=== PATIENT | male | born 1960 | race Caucasian/White ===

== ENCOUNTER → 2016-08-04 | Outpatient (CLI) | payer MEDICARE ==
[~2016-08-04] VITALS: Ht 188 cm; Wt 96.2 kg
[~2016-08-04] MED LIST: /AUGM875TA OR; ALBU17IN INH; ALBUTEROL INHALER INH; AMIT25TA2 OR; AMLO10TA2 PO; ASPI81TA2 PO; ATOR1TAB21 PO; BACITAB3 PO; CHLO125TA PO; CIPR-250 PO; CIPR500T89 PO; CLON-412 PO; COUM10TA PO; COUM1TAB17 PO; FERR325T PO; FINA5TAB2 PO; FLAG500T PO; FLEXERIL PO; FLON0.054; GABA800T PO; HYDR10TAB PO; HYDR25TA6 PO; LABE10TAB PO; LIDOCAINE 2% INJ 100 MG/5 ML SDV (FOR ANES.) As Ordered ONE; LISI-538 PO; LOPR50TA PO; MECL25TA2 OR; MICR12.5 PO; MORP15TASA PO; NICO14PA EXT; NS 1,000 ML IV SCH; OXYC10TA12 PO; PERC7.5T8 OR; PERCOCET PO; PRAVASTATIN PO; PRIL20CA PO; PROPOFOL 200 MG/20 ML VIAL As Ordered ONE; SENN8.6T10 PO; SING10TA31 OR; TYLE325T5 PO; TYLENOL #3 OR; TYLENOL #4 PO; VENTOLIN ROTAHALER INH; WARF-21 PO; WARF-23 PO; WARF10TA OR; nasal spray
--- NOTE | 2016-08-04 10:23 | ROOR ---
Patient Name: Zack Marino Procedure Date: 08/04/2016 9:26 AM Date of : 1960 Age: 56 Room: [facility] Gender: Male Note Status: Finalized Procedure: Colonoscopy Indications: Follow-up of diverticulosis of the colon Providers: DO Ania Mendiola MD: Scott Eddy NP Requesting Provider: Medicines: Propofol per Anesthesia Complications: No immediate complications. Procedure: Pre-Anesthesia Assessment: - Prior to the procedure, a History and Physical was performed, and patient medications and allergies were reviewed. The patient is competent. The risks and benefits of the procedure and the sedation options and risks were discussed with the patient. All questions were answered and informed consent was obtained. Patient identification and proposed procedure were verified by the physician, the nurse, the anesthesiologist and the arcade technician in the endoscopy suite. Mental Status Examination: alert and oriented. Airway Examination: normal oropharyngeal airway and neck mobility. Respiratory Examination: clear to auscultation. CV Examination: normal. Prophylactic Antibiotics: The patient does not require prophylactic antibiotics. Prior Anticoagulants: The patient has taken no previous anticoagulant or antiplatelet agents. ASA Grade Assessment: III - A patient with severe systemic disease. After reviewing the risks and benefits, the patient was deemed in satisfactory condition to undergo the procedure. The anesthesia plan was to use monitored anesthesia care (MAC). Immediately prior to administration of medications, the patient was re-assessed for adequacy to receive sedatives. The heart rate, respiratory rate, oxygen saturations, blood pressure, adequacy of pulmonary ventilation, and response to care were monitored throughout the procedure. The physical status of the patient was re-assessed after the procedure. The Colonoscope was introduced through the anus and advanced to the ileocolonic anastomosis. The colonoscopy was performed without difficulty. The patient tolerated the procedure well. The quality of the bowel preparation was adequate to identify polyps 6 mm and larger in size. Findings: A 5 mm polyp was found in the transverse colon. The polyp was semi-pedunculated. The polyp was removed with a hot snare. Resection and retrieval were complete. Two semi-pedunculated polyps were found in the sigmoid colon. The polyps were 7 to 12 mm in size. These polyps were removed with a hot snare. Resection and retrieval were complete. Three hyperplastic polyps were found in the rectum. The polyps were 3 to 5 mm in size. These polyps were removed with a hot snare. Resection and retrieval were complete. Multiple small and large-mouthed diverticula were found in the sigmoid colon. The exam was otherwise without abnormality. Impression: - One 5 mm polyp in the transverse colon, removed with a hot snare. Resected and retrieved. - Two 7 to 12 mm polyps in the sigmoid colon, removed with a hot snare. Resected and retrieved. - Three 3 to 5 mm polyps in the rectum, removed with a hot snare. Resected and retrieved. - Diverticulosis in the sigmoid colon. - The examination was otherwise normal. Recommendation: - Patient has a contact number available for emergencies. The signs and symptoms of potential delayed complications were discussed with the patient. Return to normal activities tomorrow. Written discharge instructions were provided to the patient. - Return to my office PRN. - Telephone my office for pathology results in 1 week. - Repeat colonoscopy in 3 - 5 years for surveillance based on pathology results. Alton Sabillon DO 08/04/2016 10:22:37 AM This report has been signed electronically. Number of Addenda: 0 Note Initiated On: 08/04/2016 9:26 AM Estimated Blood Loss: Estimated blood loss was minimal.
--- NOTE | 2016-08-04 13:55 | REP ---
Clinical: Epigastric and abdominal pain status post colonoscopy. Technique: Upright view of the chest with supine and upright views of the abdomen and pelvis. Findings: Frontal upright view of the chest demonstrates no acute cardiopulmonary process or free air below the diaphragm to suspect pneumoperitoneum. Supine and upright views of the abdomen and pelvis demonstrate dilated loops of bowel which are consistent with the recent colonoscopy. No organomegaly. No abnormal calcifications. Skeletal structures normal for age. Iliac stent grafts noted. Impression: Dilated air filled bowel consistent with recent colonoscopy. Consider follow-up examination if the patient remains symptomatic. Signed by Alan Cummings MD 08/04/2016 01:47 P
[2016-08-04 14:00] VITALS: BP 178/92
== END | disposition home or self-care (01) ==
LOC: M OPP 08:26
PROVIDERS: ATTEND Surgery
DX: K57.30 Diverticulosis of large intestine without perforation or abscess without bleeding (principal); D12.3 Benign neoplasm of transverse colon; D12.5 Benign neoplasm of sigmoid colon; K62.1 Rectal polyp; I25.10 Atherosclerotic heart disease of native coronary artery without angina pectoris; I10 Essential (primary) hypertension; E78.00 Pure hypercholesterolemia, unspecified; D64.9 Anemia, unspecified; F17.200 Nicotine dependence, unspecified, uncomplicated; F17.228 Nicotine dependence, chewing tobacco, with other nicotine-induced disorders; Z79.899 Other long term (current) drug therapy; Z79.891 Long term (current) use of opiate analgesic; Z79.01 Long term (current) use of anticoagulants; Z85.00 Personal history of malignant neoplasm of unspecified digestive organ

== ENCOUNTER 2016-11-15 15:35 | Inpatient (IN) | payer MEDICARE, MEDICAID ==
[~2016-11-15] VITALS: Ht 188 cm; Wt 97.9 kg
[~2016-11-15 15:35] MED LIST changes: +BACITAB PO; -BACITAB3 PO; +CIPR-249 PO; +FERR1TAB8 PO; -FERR325T PO; -LIDOCAINE 2% INJ 100 MG/5 ML SDV (FOR ANES.) As Ordered ONE; -NS 1,000 ML IV SCH; -PROPOFOL 200 MG/20 ML VIAL As Ordered ONE; +SENN1TAB10 PO; -SENN8.6T10 PO
[2016-11-15] MEDS ORDERED: COUM7.5T PO (15:48)
[2016-11-15] MEDS ORDERED: NS 1,000 ML IV ONE (16:30)
[2016-11-15] MEDS ORDERED: ONDANSETRON 4MG/2ML VIAL (J2405) IV ONE (16:30)
[2016-11-15] MEDS ORDERED: MORPHINE 4 MG/ML 1ML SYRINGE IV ONE (16:30)
[2016-11-15 16:38] LABS: BASO # 0.1 K/mm3 (0.0-0.2); BASO % 0.7 % (0.0-1.0); EOS # 0.4 K/mm3 (0.0-0.50); EOS % 4.2 % (0.0-3.0); LARGE UNSTAINED CELL # 0.2 K/mm3 (0.0-0.4); LARGE UNSTAINED CELL % 2.1 % (0.0-4.0); LYMPH # 2.2 K/mm3 (1.5-4.5); LYMPH % 23.1 % (24.0-44.0); MEAN CORPUSCULAR HEMOGLOBIN 31.1 pg (27.0-33.0); MEAN CORPUSCULAR HGB CONC 33.6 g/dl (32.0-36.5); MEAN CORPUSCULAR VOLUME 92.5 fl (80.0-96.0); MONO # 0.5 K/mm3 (0.0-0.8); MONO % 5.6 % (0.0-5.0); NEUTROPHILS % 64.3 % (36.0-66.0); PLATELET COUNT, AUTOMATED 195 k/mm3 (150-450); RED CELL DISTRIBUTION WIDTH 14.2 % (11.5-14.5); WHITE BLOOD COUNT 9.3 K/mm3 (4.0-10.0)
[2016-11-15 16:44] LABS: INR 1.12
[2016-11-15 17:16] LABS: ALBUMIN 3.3 GM/DL (3.2-5.2); ALKALINE PHOSPHATASE 83 U/L (45-117); ALT/SGPT 19 U/L (12-78); ANION GAP 3 MEQ/L (8-16); AST/SGOT 16 U/L (15-37); BILIRUBIN,DIRECT < 0.1 MG/DL (0.0-0.2); BILIRUBIN,TOTAL 0.3 MG/DL (0.2-1.0); BLOOD UREA NITROGEN 18 MG/DL (7-18); CALCIUM LEVEL 8.4 MG/DL (8.5-10.1); CARBON DIOXIDE LEVEL 25 MEQ/L (21-32); CHLORIDE LEVEL 110 MEQ/L (98-107); CREATININE FOR GFR 1.24 MG/DL (0.70-1.30); GLOMERULAR FILTRATION RATE > 60.0 (>56); GLUCOSE, FASTING 81 MG/DL (70-105); POTASSIUM SERUM 4.4 MEQ/L (3.5-5.1); SODIUM LEVEL 138 MEQ/L (136-145); TOTAL PROTEIN 6.6 GM/DL (6.4-8.2)
[2016-11-15] MEDS ORDERED: HEPARIN DRIP 25,000 UNITS in APPROPRIATE DILUENT 1 EA IV SCH (17:32)
[2016-11-15] MEDS ORDERED: HEPARIN SOD (PORCINE) 5000 UNITS/ML VIAL IV ONE (17:45)
[2016-11-15] MEDS ORDERED: ACETAMINOPHEN TAB 650MG DOSE (2X325MG) PO PRN (18:45)
[2016-11-15] MEDS ORDERED: NORCO, ANEXSIA 5/325MG TABLET (HYDROcodone/ACETAMINOPHEN) PO PRN (18:45)
[2016-11-15] MEDS ORDERED: HEPARIN (FLUSH) 100 UNITS in SODIUM CHLORIDE 0.45% 99 ML IV SCH (18:45)
[2016-11-15] MEDS ORDERED: ATOR1TAB21 PO (19:04)
[2016-11-15] MEDS ORDERED: DULO1CAP2 PO (19:04)
[2016-11-15] MEDS ORDERED: CLON-412 PO (19:04)
[2016-11-15] MEDS ORDERED: CARV3.12 PO (19:04)
[2016-11-15] MEDS: NORCO, ANEXSIA 5/325MG TABLET (HYDROcodone/ACETAMINOPHEN) PO PRN (19:27)
[2016-11-15 21:17] LABS: MEAN CORPUSCULAR HEMOGLOBIN 31.5 pg (27.0-33.0); MEAN CORPUSCULAR HGB CONC 33.9 g/dl (32.0-36.5); MEAN CORPUSCULAR VOLUME 92.8 fl (80.0-96.0); RED CELL DISTRIBUTION WIDTH 14.3 % (11.5-14.5); WHITE BLOOD COUNT 8.6 K/mm3 (4.0-10.0)
[2016-11-15 22:00] VITALS: BP 129/84
[2016-11-15] MEDS: SENOKOT S TAB PO SCH (22:35)
[2016-11-15] MEDS: DOCUSATE SODIUM 100 MG CAP PO SCH (22:35)
[2016-11-15] MEDS: D5W/0.45% SODIUM CHLORIDE 1,000 ML IV SCH (22:59)
[2016-11-16] MEDS: NORCO, ANEXSIA 5/325MG TABLET (HYDROcodone/ACETAMINOPHEN) PO PRN ×4 (01:31→20:45)
[2016-11-16] MEDS: HEPARIN SOD (PORCINE) 5000 UNITS/ML VIAL IV PRN ×2 (02:38→15:52)
[2016-11-16] MEDS: D5W/0.45% SODIUM CHLORIDE 1,000 ML IV SCH ×3 (03:18→20:43)
[2016-11-16 06:00] VITALS: BP 137/82
[2016-11-16] MEDS: HEPARIN DRIP 25,000 UNITS in APPROPRIATE DILUENT 1 EA IV SCH (08:46)
[2016-11-16] MEDS: SENOKOT S TAB PO SCH ×2 (08:54→20:45)
[2016-11-16] MEDS: PANTOPRAZOLE 40MG TAB (PROTONIX) PO SCH (08:54)
[2016-11-16] MEDS: DOCUSATE SODIUM 100 MG CAP PO SCH ×2 (08:54→20:44)
[2016-11-16] MEDS ORDERED: amLODIPine 10 MG TAB PO SCH (09:00)
[2016-11-16 14:00] VITALS: BP 180/100
[2016-11-16] MEDS ORDERED: FINA5TAB2 PO ×2 (16:39→16:47)
[2016-11-16] MEDS ORDERED: ALBUTEROL 90 MCG/ACT 8GM HFA INHALER INH PRN (17:00)
[2016-11-16] MEDS: cloNIDine 0.1 MG TAB PO SCH ×2 (17:20→20:45)
[2016-11-16] MEDS: DULoxetine 30 MG CAP (CYMBALTA) PO SCH (17:20)
[2016-11-16] MEDS: GABAPENTIN 400 MG CAP PO SCH ×2 (17:20→20:44)
[2016-11-16] MEDS ORDERED: AMLO5TAB2 PO (17:52)
[2016-11-16] MEDS: ATORVASTATIN 20 MG TAB PO SCH (20:44)
[2016-11-16] MEDS: CARVedilol 3.125 MG TAB PO SCH (20:45)
[2016-11-16 22:00] VITALS: BP 171/86
[2016-11-17] VITALS (9 sets, daily range): BP systolic 132–223; BP diastolic 80–115
[2016-11-17] MEDS: D5W/0.45% SODIUM CHLORIDE 1,000 ML IV SCH ×2 (02:41→10:41)
[2016-11-17] MEDS: HEPARIN DRIP 25,000 UNITS in APPROPRIATE DILUENT 1 EA IV SCH (04:18)
[2016-11-17] MEDS: NORCO, ANEXSIA 5/325MG TABLET (HYDROcodone/ACETAMINOPHEN) PO PRN (05:45)
[2016-11-17] MEDS ORDERED: MIDAZOLAM INJ 2 MG/2 ML VIAL (J2250) As Ordered ONE ×2 (10:28→12:29)
[2016-11-17] MEDS ORDERED: ISOVUE-300 61% 50ML VIAL (Q9967) As Ordered ONE (10:28)
[2016-11-17] MEDS ORDERED: fentaNYL 100 MCG/2 ML INJECTION (J3010) As Ordered ONE ×2 (10:28→12:29)
[2016-11-17] MEDS ORDERED: HEPARIN 1,000 UNITS/ML 10ML VIAL (FOR RADIOLOGY& DIALYSIS ONLY) As Ordered ONE (11:01)
[2016-11-17] MEDS ORDERED: ALTEPLASE 2 MG/2 ML VIAL (J2997 PER 1MG) As Ordered ONE (12:08)
[2016-11-17] MEDS ORDERED: LABETALOL HCL 100 MG/20 ML VIAL As Ordered ONE (12:42)
[2016-11-17] MEDS ORDERED: ATROPINE SULF 1MG/10ML SYRINGE (J0461) As Ordered ONE (12:45)
[2016-11-17] MEDS: cloNIDine 0.1 MG TAB PO SCH ×3 (13:52→21:16)
[2016-11-17] MEDS: GABAPENTIN 400 MG CAP PO SCH ×3 (13:53→21:16)
[2016-11-17] MEDS: DULoxetine 30 MG CAP (CYMBALTA) PO SCH (14:40)
[2016-11-17] MEDS: amLODIPine 5 MG TAB PO SCH (14:40)
[2016-11-17] MEDS: SENOKOT S TAB PO SCH ×2 (14:40→21:16)
[2016-11-17] MEDS: CARVedilol 3.125 MG TAB PO SCH ×2 (14:40→21:00)
[2016-11-17] MEDS: DOCUSATE SODIUM 100 MG CAP PO SCH ×2 (14:40→21:16)
[2016-11-17] MEDS: PANTOPRAZOLE 40MG TAB (PROTONIX) PO SCH (14:40)
[2016-11-17] MEDS ORDERED: ALTEPLASE 2 MG/2 ML VIAL (J2997 PER 1MG) XX ONE (15:00)
[2016-11-17] MEDS ORDERED: ALTEPLASE IV SCH (15:00)
[2016-11-17] MEDS ORDERED: ALTEPLASE RECOMBINANT 10 MG in APPROPRIATE DILUENT 1 EA IV ONE ×4 (16:00)
[2016-11-17] MEDS: ALTEPLASE RECOMBINANT 25 MG in NS 225 ML IV SCH (16:00)
[2016-11-17] MEDS ORDERED: cloNIDine 0.1 MG TAB PO ONE (16:15)
[2016-11-17] MEDS ORDERED: NORCO, ANEXSIA 5/325MG TABLET (HYDROcodone/ACETAMINOPHEN) As Ordered ONE (16:30)
[2016-11-17 18:12] LABS: MEAN CORPUSCULAR HEMOGLOBIN 29.8 pg (27.0-33.0); MEAN CORPUSCULAR HGB CONC 32.7 g/dl (32.0-36.5); MEAN CORPUSCULAR VOLUME 91.1 fl (80.0-96.0); RED CELL DISTRIBUTION WIDTH 14.2 % (11.5-14.5); WHITE BLOOD COUNT 11.4 K/mm3 (4.0-10.0)
[2016-11-17] MEDS ORDERED: ONDANSETRON 4MG/2ML VIAL (J2405) IV PRN (18:15)
[2016-11-17 18:32] LABS: INR 1.08
[2016-11-17] MEDS ORDERED: diphenhydrAMINE INJ 50MG/ML VIAL (J1200) IV PRN (18:45)
[2016-11-17] MEDS ORDERED: NALBUPHINE HCL 10 MG/ML AMP (J2300) IV PRN (18:45)
[2016-11-17] MEDS ORDERED: EPIDURAL/PCA KEYS XX PRN (18:45)
[2016-11-17] MEDS ORDERED: NALOXONE INJ 0.4 MG/1 ML VIAL (J2310) IV PRN (18:45)
[2016-11-17] MEDS: MORPHINE 1MG/ML IN 0.9% NACL 100ML IV BAG IV PRN (19:26)
[2016-11-17] MEDS: NS 1,000 ML IV SCH (19:26)
[2016-11-17] MEDS: ATORVASTATIN 20 MG TAB PO SCH (21:16)
[2016-11-18] VITALS (22 sets, daily range): BP systolic 71–179; BP diastolic 68–107
[2016-11-18 00:35] LABS: MEAN CORPUSCULAR HEMOGLOBIN 30.9 pg (27.0-33.0); MEAN CORPUSCULAR HGB CONC 33.1 g/dl (32.0-36.5); MEAN CORPUSCULAR VOLUME 93.3 fl (80.0-96.0); RED CELL DISTRIBUTION WIDTH 14.4 % (11.5-14.5); WHITE BLOOD COUNT 7.4 K/mm3 (4.0-10.0)
[2016-11-18 00:36] LABS: INR 1.48
[2016-11-18 00:37] LABS: FIBRINOGEN 156 MG/DL (221-452)
[2016-11-18 01:29] LABS: INR 1.12
[2016-11-18] MEDS: HEPARIN DRIP 25,000 UNITS in APPROPRIATE DILUENT 1 EA IV SCH (01:44)
[2016-11-18 06:13] LABS: MEAN CORPUSCULAR HEMOGLOBIN 30.9 pg (27.0-33.0); MEAN CORPUSCULAR HGB CONC 33.5 g/dl (32.0-36.5); MEAN CORPUSCULAR VOLUME 92.2 fl (80.0-96.0); RED CELL DISTRIBUTION WIDTH 14.2 % (11.5-14.5); WHITE BLOOD COUNT 8.4 K/mm3 (4.0-10.0)
[2016-11-18 06:19] LABS: INR 1.09
[2016-11-18 06:51] LABS: ALBUMIN/GLOBULIN RATIO 0.86 (1.00-1.93); ALKALINE PHOSPHATASE 82 U/L (45-117); ALT/SGPT 18 U/L (12-78); ANION GAP 8 MEQ/L (8-16); AST/SGOT 15 U/L (15-37); BILIRUBIN,TOTAL 0.3 MG/DL (0.2-1.0); BLOOD UREA NITROGEN 10 MG/DL (7-18); CALCIUM LEVEL 7.8 MG/DL (8.5-10.1); CARBON DIOXIDE LEVEL 22 MEQ/L (21-32); CHLORIDE LEVEL 110 MEQ/L (98-107); CREATININE FOR GFR 1.08 MG/DL (0.70-1.30); GLOMERULAR FILTRATION RATE > 60.0 (>56); GLUCOSE, FASTING 86 MG/DL (70-105); POTASSIUM SERUM 4.3 MEQ/L (3.5-5.1); SODIUM LEVEL 140 MEQ/L (136-145); TOTAL PROTEIN 6.5 GM/DL (6.4-8.2)
[2016-11-18] MEDS: DULoxetine 30 MG CAP (CYMBALTA) PO SCH (09:05)
[2016-11-18] MEDS: DOCUSATE SODIUM 100 MG CAP PO SCH ×2 (09:05→20:53)
[2016-11-18] MEDS: GABAPENTIN 400 MG CAP PO SCH ×3 (09:05→20:53)
[2016-11-18] MEDS: cloNIDine 0.1 MG TAB PO SCH ×3 (09:06→20:54)
[2016-11-18] MEDS: amLODIPine 5 MG TAB PO SCH (09:06)
[2016-11-18] MEDS: CARVedilol 3.125 MG TAB PO SCH ×2 (09:06→20:54)
[2016-11-18] MEDS: PANTOPRAZOLE 40MG TAB (PROTONIX) PO SCH (09:07)
[2016-11-18] MEDS: SENOKOT S TAB PO SCH ×2 (09:07→20:54)
[2016-11-18] MEDS: NS 1,000 ML IV SCH (09:10)
[2016-11-18 12:00] LABS: MEAN CORPUSCULAR HGB CONC 33.3 g/dl (32.0-36.5); MEAN CORPUSCULAR VOLUME 93.1 fl (80.0-96.0); RED CELL DISTRIBUTION WIDTH 14.5 % (11.5-14.5); WHITE BLOOD COUNT 11.7 K/mm3 (4.0-10.0)
[2016-11-18 12:17] LABS: INR 1.03
[2016-11-18] MEDS: ONDANSETRON 4MG/2ML VIAL (J2405) IV PRN (13:06)
[2016-11-18] MEDS: MORPHINE 1MG/ML IN 0.9% NACL 100ML IV BAG IV PRN (13:45)
[2016-11-18] MEDS ORDERED: AZITHROMYCIN 250 MG TAB PO ONE ×2 (14:30→15:45)
[2016-11-18] MEDS: ALTEPLASE RECOMBINANT 25 MG in NS 225 ML IV SCH (15:42)
[2016-11-18 19:20] LABS: MEAN CORPUSCULAR HEMOGLOBIN 30.7 pg (27.0-33.0); MEAN CORPUSCULAR HGB CONC 32.6 g/dl (32.0-36.5); RED CELL DISTRIBUTION WIDTH 14.2 % (11.5-14.5); WHITE BLOOD COUNT 9.8 K/mm3 (4.0-10.0)
[2016-11-18 19:47] LABS: INR 1.2
[2016-11-18] MEDS: ATORVASTATIN 20 MG TAB PO SCH (20:54)
[2016-11-18 21:23] LABS: FIBRINOGEN 218 MG/DL (221-452); INR 1.19
[2016-11-19] VITALS (21 sets, daily range): BP systolic 85–226; BP diastolic 72–105
[2016-11-19] MEDS: HEPARIN DRIP 25,000 UNITS in APPROPRIATE DILUENT 1 EA IV SCH ×2 (02:33→21:24)
[2016-11-19 04:27] LABS: ALBUMIN 2.5 GM/DL (3.2-5.2); ALBUMIN/GLOBULIN RATIO 0.76 (1.00-1.93); ALKALINE PHOSPHATASE 71 U/L (45-117); ALT/SGPT 14 U/L (12-78); ANION GAP 6 MEQ/L (8-16); AST/SGOT 12 U/L (15-37); BILIRUBIN,TOTAL 0.2 MG/DL (0.2-1.0); BLOOD UREA NITROGEN 16 MG/DL (7-18); CALCIUM LEVEL 7.1 MG/DL (8.5-10.1); CARBON DIOXIDE LEVEL 25 MEQ/L (21-32); CHLORIDE LEVEL 104 MEQ/L (98-107); CREATININE FOR GFR 1.12 MG/DL (0.70-1.30); GLOMERULAR FILTRATION RATE > 60.0 (>56); GLUCOSE, FASTING 229 MG/DL (70-105); POTASSIUM SERUM 3.9 MEQ/L (3.5-5.1); SODIUM LEVEL 135 MEQ/L (136-145); TOTAL PROTEIN 5.8 GM/DL (6.4-8.2)
[2016-11-19 05:12] LABS: MEAN CORPUSCULAR HEMOGLOBIN 30.5 pg (27.0-33.0); MEAN CORPUSCULAR HGB CONC 32.3 g/dl (32.0-36.5); MEAN CORPUSCULAR VOLUME 94.6 fl (80.0-96.0); RED CELL DISTRIBUTION WIDTH 14.4 % (11.5-14.5); WHITE BLOOD COUNT 8.1 K/mm3 (4.0-10.0)
[2016-11-19] MEDS: MORPHINE 1MG/ML IN 0.9% NACL 100ML IV BAG IV PRN ×2 (06:22→23:15)
[2016-11-19] MEDS ORDERED: ISOVUE-300 61% 50ML VIAL (Q9967) As Ordered ONE (06:46)
[2016-11-19] MEDS ORDERED: fentaNYL 100 MCG/2 ML INJECTION (J3010) As Ordered ONE ×2 (06:46→08:55)
[2016-11-19] MEDS ORDERED: MIDAZOLAM INJ 2 MG/2 ML VIAL (J2250) As Ordered ONE ×2 (06:47→08:55)
[2016-11-19] MEDS ORDERED: AZITHROMYCIN 250 MG TAB PO SCH (09:00)
[2016-11-19] MEDS ORDERED: LABETALOL HCL 100 MG/20 ML VIAL As Ordered ONE (09:11)
[2016-11-19] MEDS: AZITHROMYCIN 250 MG TAB PO SCH (11:06)
[2016-11-19] MEDS: GABAPENTIN 400 MG CAP PO SCH ×3 (11:06→21:23)
[2016-11-19] MEDS: DULoxetine 30 MG CAP (CYMBALTA) PO SCH (11:06)
[2016-11-19] MEDS: PANTOPRAZOLE 40MG TAB (PROTONIX) PO SCH (11:07)
[2016-11-19] MEDS: SENOKOT S TAB PO SCH ×2 (11:07→21:21)
[2016-11-19] MEDS: DOCUSATE SODIUM 100 MG CAP PO SCH ×2 (11:07→21:21)
[2016-11-19] MEDS: CARVedilol 3.125 MG TAB PO SCH ×2 (11:07→21:22)
[2016-11-19] MEDS: amLODIPine 5 MG TAB PO SCH (11:08)
[2016-11-19] MEDS: cloNIDine 0.1 MG TAB PO SCH ×3 (11:08→21:22)
[2016-11-19] MEDS ORDERED: cloNIDine 0.1 MG TAB PO ONE ×2 (12:30→13:00)
[2016-11-19 15:16] LABS: MEAN CORPUSCULAR HEMOGLOBIN 31.3 pg (27.0-33.0); MEAN CORPUSCULAR HGB CONC 33.3 g/dl (32.0-36.5)
[2016-11-19] MEDS: ALTEPLASE RECOMBINANT 25 MG in NS 225 ML IV SCH (15:53)
[2016-11-19] MEDS: NS 1,000 ML IV SCH (19:30)
[2016-11-19] MEDS: ATORVASTATIN 20 MG TAB PO SCH (21:21)
[2016-11-19 21:45] LABS: MEAN CORPUSCULAR HEMOGLOBIN 30.6 pg (27.0-33.0); MEAN CORPUSCULAR HGB CONC 33.1 g/dl (32.0-36.5); MEAN CORPUSCULAR VOLUME 92.6 fl (80.0-96.0); RED CELL DISTRIBUTION WIDTH 14.2 % (11.5-14.5)
[2016-11-20] VITALS (24 sets, daily range): BP systolic 106–181; BP diastolic 62–85
[2016-11-20 03:44] LABS: MEAN CORPUSCULAR HEMOGLOBIN 30.8 pg (27.0-33.0); MEAN CORPUSCULAR HGB CONC 33.2 g/dl (32.0-36.5); MEAN CORPUSCULAR VOLUME 92.8 fl (80.0-96.0); WHITE BLOOD COUNT 11.1 K/mm3 (4.0-10.0)
[2016-11-20 03:45] LABS: RED CELL DISTRIBUTION WIDTH 13.9 % (11.5-14.5)
[2016-11-20 06:50] LABS: ALBUMIN 2.8 GM/DL (3.2-5.2); ALBUMIN/GLOBULIN RATIO 0.93 (1.00-1.93); ALKALINE PHOSPHATASE 72 U/L (45-117); ALT/SGPT 18 U/L (12-78); ANION GAP 7 MEQ/L (8-16); AST/SGOT 19 U/L (15-37); BILIRUBIN,TOTAL 0.4 MG/DL (0.2-1.0); BLOOD UREA NITROGEN 15 MG/DL (7-18); CALCIUM LEVEL 7.7 MG/DL (8.5-10.1); CARBON DIOXIDE LEVEL 26 MEQ/L (21-32); CHLORIDE LEVEL 103 MEQ/L (98-107); CREATININE FOR GFR 0.97 MG/DL (0.70-1.30); GLOMERULAR FILTRATION RATE > 60.0 (>56); GLUCOSE, FASTING 93 MG/DL (70-105); POTASSIUM SERUM 4.1 MEQ/L (3.5-5.1); SODIUM LEVEL 136 MEQ/L (136-145); TOTAL PROTEIN 5.8 GM/DL (6.4-8.2)
[2016-11-20] MEDS: GABAPENTIN 400 MG CAP PO SCH ×3 (08:31→21:23)
[2016-11-20] MEDS: SENOKOT S TAB PO SCH ×2 (08:32→21:23)
[2016-11-20] MEDS: DOCUSATE SODIUM 100 MG CAP PO SCH ×2 (08:32→21:23)
[2016-11-20] MEDS: DULoxetine 30 MG CAP (CYMBALTA) PO SCH (08:32)
[2016-11-20] MEDS: PANTOPRAZOLE 40MG TAB (PROTONIX) PO SCH (08:32)
[2016-11-20] MEDS: cloNIDine 0.1 MG TAB PO SCH ×3 (08:33→21:23)
[2016-11-20] MEDS: CARVedilol 3.125 MG TAB PO SCH ×2 (08:33→21:24)
[2016-11-20] MEDS: amLODIPine 5 MG TAB PO SCH (08:33)
[2016-11-20] MEDS: AZITHROMYCIN 250 MG TAB PO SCH (08:34)
[2016-11-20 09:26] LABS: MEAN CORPUSCULAR HEMOGLOBIN 30.1 pg (27.0-33.0); MEAN CORPUSCULAR HGB CONC 32.4 g/dl (32.0-36.5); MEAN CORPUSCULAR VOLUME 92.8 fl (80.0-96.0); RED CELL DISTRIBUTION WIDTH 13.9 % (11.5-14.5); WHITE BLOOD COUNT 11.7 K/mm3 (4.0-10.0)
[2016-11-20] MEDS: MORPHINE 1MG/ML IN 0.9% NACL 100ML IV BAG IV PRN ×2 (11:08→21:44)
[2016-11-20] MEDS: HEPARIN DRIP 25,000 UNITS in APPROPRIATE DILUENT 1 EA IV SCH (12:45)
[2016-11-20] MEDS: ALTEPLASE RECOMBINANT 25 MG in NS 225 ML IV SCH (15:59)
[2016-11-20 16:12] LABS: MEAN CORPUSCULAR HEMOGLOBIN 31.3 pg (27.0-33.0); MEAN CORPUSCULAR HGB CONC 33.9 g/dl (32.0-36.5); MEAN CORPUSCULAR VOLUME 92.5 fl (80.0-96.0); RED CELL DISTRIBUTION WIDTH 14.2 % (11.5-14.5); WHITE BLOOD COUNT 10.5 K/mm3 (4.0-10.0)
[2016-11-20] MEDS: NS 1,000 ML IV SCH (21:23)
[2016-11-20] MEDS: ATORVASTATIN 20 MG TAB PO SCH (21:24)
[2016-11-20 21:50] LABS: MEAN CORPUSCULAR HEMOGLOBIN 31.5 pg (27.0-33.0); MEAN CORPUSCULAR HGB CONC 34.6 g/dl (32.0-36.5); RED CELL DISTRIBUTION WIDTH 14.3 % (11.5-14.5); WHITE BLOOD COUNT 14.8 K/mm3 (4.0-10.0)
[2016-11-21] VITALS (37 sets, daily range): BP systolic 37–232; BP diastolic 33–124
[2016-11-21 04:39] LABS: MEAN CORPUSCULAR HEMOGLOBIN 30.7 pg (27.0-33.0); MEAN CORPUSCULAR HGB CONC 33.7 g/dl (32.0-36.5); MEAN CORPUSCULAR VOLUME 91.4 fl (80.0-96.0); RED CELL DISTRIBUTION WIDTH 14.1 % (11.5-14.5); WHITE BLOOD COUNT 11.7 K/mm3 (4.0-10.0)
[2016-11-21] MEDS: HEPARIN DRIP 25,000 UNITS in APPROPRIATE DILUENT 1 EA IV SCH ×2 (04:57→18:33)
[2016-11-21 06:19] LABS: ALBUMIN 2.7 GM/DL (3.2-5.2); ALBUMIN/GLOBULIN RATIO 0.87 (1.00-1.93); ALKALINE PHOSPHATASE 71 U/L (45-117); ALT/SGPT 28 U/L (12-78); ANION GAP 8 MEQ/L (8-16); AST/SGOT 32 U/L (15-37); BILIRUBIN,TOTAL 0.4 MG/DL (0.2-1.0); BLOOD UREA NITROGEN 12 MG/DL (7-18); CALCIUM LEVEL 7.3 MG/DL (8.5-10.1); CARBON DIOXIDE LEVEL 27 MEQ/L (21-32); CHLORIDE LEVEL 101 MEQ/L (98-107); GLOMERULAR FILTRATION RATE > 60.0 (>56); GLUCOSE, FASTING 86 MG/DL (70-105); SODIUM LEVEL 136 MEQ/L (136-145); TOTAL PROTEIN 5.8 GM/DL (6.4-8.2)
[2016-11-21] MEDS: GABAPENTIN 400 MG CAP PO SCH ×3 (08:33→22:25)
[2016-11-21] MEDS: SENOKOT S TAB PO SCH ×2 (08:34→22:25)
[2016-11-21] MEDS: CARVedilol 3.125 MG TAB PO SCH ×2 (08:34→22:26)
[2016-11-21] MEDS: amLODIPine 5 MG TAB PO SCH (08:34)
[2016-11-21] MEDS: DULoxetine 30 MG CAP (CYMBALTA) PO SCH (08:34)
[2016-11-21] MEDS: cloNIDine 0.1 MG TAB PO SCH ×3 (08:35→22:27)
[2016-11-21] MEDS: PANTOPRAZOLE 40MG TAB (PROTONIX) PO SCH (08:35)
[2016-11-21] MEDS: DOCUSATE SODIUM 100 MG CAP PO SCH ×2 (08:35→22:25)
[2016-11-21] MEDS: AZITHROMYCIN 250 MG TAB PO SCH (08:35)
[2016-11-21 09:14] LABS: MEAN CORPUSCULAR HEMOGLOBIN 30.5 pg (27.0-33.0); MEAN CORPUSCULAR HGB CONC 32.8 g/dl (32.0-36.5); MEAN CORPUSCULAR VOLUME 92.9 fl (80.0-96.0); RED CELL DISTRIBUTION WIDTH 13.9 % (11.5-14.5); WHITE BLOOD COUNT 14.9 K/mm3 (4.0-10.0)
[2016-11-21] MEDS: MORPHINE 1MG/ML IN 0.9% NACL 100ML IV BAG IV PRN (10:05)
[2016-11-21 15:18] LABS: MEAN CORPUSCULAR HEMOGLOBIN 31.1 pg (27.0-33.0); MEAN CORPUSCULAR HGB CONC 33.8 g/dl (32.0-36.5); MEAN CORPUSCULAR VOLUME 92.1 fl (80.0-96.0); RED CELL DISTRIBUTION WIDTH 13.9 % (11.5-14.5); WHITE BLOOD COUNT 12.4 K/mm3 (4.0-10.0)
[2016-11-21] MEDS: ALTEPLASE RECOMBINANT 25 MG in NS 225 ML IV SCH (16:05)
[2016-11-21] MEDS ORDERED: PROPOFOL 200 MG/20 ML VIAL As Ordered ONE (19:58)
[2016-11-21] MEDS ORDERED: LIDOCAINE 2% INJ 100 MG/5 ML SDV (FOR ANES.) As Ordered ONE (19:58)
[2016-11-21] MEDS ORDERED: fentaNYL 100 MCG/2 ML INJECTION (J3010) As Ordered ONE (19:58)
[2016-11-21] MEDS ORDERED: MIDAZOLAM INJ 2 MG/2 ML VIAL (J2250) As Ordered ONE (19:58)
[2016-11-21] MEDS ORDERED: LR 1,000 ML IV SCH (22:00)
[2016-11-21] MEDS ORDERED: fentaNYL 100 MCG/2 ML INJECTION (J3010) IV PRN (22:00)
[2016-11-21] MEDS ORDERED: ONDANSETRON 4MG/2ML VIAL (J2405) IV PRN (22:00)
[2016-11-21] MEDS: ATORVASTATIN 20 MG TAB PO SCH (22:26)
[2016-11-22] VITALS (25 sets, daily range): BP systolic 75–194; BP diastolic 58–95
[2016-11-22 03:11] LABS: MEAN CORPUSCULAR HEMOGLOBIN 30.1 pg (27.0-33.0); MEAN CORPUSCULAR HGB CONC 32.4 g/dl (32.0-36.5); MEAN CORPUSCULAR VOLUME 92.9 fl (80.0-96.0); RED CELL DISTRIBUTION WIDTH 13.9 % (11.5-14.5); WHITE BLOOD COUNT 14.4 K/mm3 (4.0-10.0)
[2016-11-22 03:25] LABS: ALBUMIN 2.4 GM/DL (3.2-5.2); ALBUMIN/GLOBULIN RATIO 0.69 (1.00-1.93); ALKALINE PHOSPHATASE 67 U/L (45-117); ALT/SGPT 26 U/L (12-78); ANION GAP 7 MEQ/L (8-16); AST/SGOT 34 U/L (15-37); BILIRUBIN,TOTAL 0.5 MG/DL (0.2-1.0); BLOOD UREA NITROGEN 12 MG/DL (7-18); CALCIUM LEVEL 7.9 MG/DL (8.5-10.1); CARBON DIOXIDE LEVEL 29 MEQ/L (21-32); CHLORIDE LEVEL 99 MEQ/L (98-107); CREATININE FOR GFR 0.83 MG/DL (0.70-1.30); GLOMERULAR FILTRATION RATE > 60.0 (>56); GLUCOSE, FASTING 135 MG/DL (70-105); POTASSIUM SERUM 3.8 MEQ/L (3.5-5.1); SODIUM LEVEL 135 MEQ/L (136-145); TOTAL PROTEIN 5.9 GM/DL (6.4-8.2)
[2016-11-22] MEDS: MORPHINE 1MG/ML IN 0.9% NACL 100ML IV BAG IV PRN ×2 (06:49→23:01)
[2016-11-22] MEDS: SENOKOT S TAB PO SCH ×2 (08:44→21:04)
[2016-11-22] MEDS: GABAPENTIN 400 MG CAP PO SCH ×3 (08:44→21:04)
[2016-11-22] MEDS: PANTOPRAZOLE 40MG TAB (PROTONIX) PO SCH (08:44)
[2016-11-22] MEDS: cloNIDine 0.1 MG TAB PO SCH ×3 (08:44→21:04)
[2016-11-22] MEDS: AZITHROMYCIN 250 MG TAB PO SCH (08:44)
[2016-11-22] MEDS: CARVedilol 3.125 MG TAB PO SCH ×2 (08:45→21:04)
[2016-11-22] MEDS: DOCUSATE SODIUM 100 MG CAP PO SCH ×2 (08:45→21:04)
[2016-11-22] MEDS: amLODIPine 5 MG TAB PO SCH (08:45)
[2016-11-22] MEDS: DULoxetine 30 MG CAP (CYMBALTA) PO SCH (08:45)
[2016-11-22 09:08] LABS: MEAN CORPUSCULAR HEMOGLOBIN 30.9 pg (27.0-33.0); MEAN CORPUSCULAR HGB CONC 33.4 g/dl (32.0-36.5); MEAN CORPUSCULAR VOLUME 92.5 fl (80.0-96.0); RED CELL DISTRIBUTION WIDTH 13.9 % (11.5-14.5); WHITE BLOOD COUNT 12.2 K/mm3 (4.0-10.0)
[2016-11-22] MEDS: HEPARIN DRIP 25,000 UNITS in APPROPRIATE DILUENT 1 EA IV SCH (11:51)
[2016-11-22] MEDS ORDERED: MIDAZOLAM INJ 2 MG/2 ML VIAL (J2250) As Ordered ONE (13:03)
[2016-11-22] MEDS ORDERED: fentaNYL 100 MCG/2 ML INJECTION (J3010) As Ordered ONE (13:03)
[2016-11-22] MEDS ORDERED: ISOVUE-300 61% 50ML VIAL (Q9967) As Ordered ONE (13:04)
[2016-11-22] MEDS: NS 1,000 ML IV SCH ×2 (16:14→18:45)
[2016-11-22 16:44] LABS: MEAN CORPUSCULAR HEMOGLOBIN 31.9 pg (27.0-33.0); MEAN CORPUSCULAR HGB CONC 34.6 g/dl (32.0-36.5); RED CELL DISTRIBUTION WIDTH 14.2 % (11.5-14.5); WHITE BLOOD COUNT 10.9 K/mm3 (4.0-10.0)
[2016-11-22] MEDS: ALTEPLASE RECOMBINANT 25 MG in NS 225 ML IV SCH (18:24)
[2016-11-22] MEDS ORDERED: HEPARIN DRIP 25,000 UNITS in APPROPRIATE DILUENT 1 EA IV SCH (18:34)
[2016-11-22] MEDS: ATORVASTATIN 20 MG TAB PO SCH (21:05)
[2016-11-22 21:14] LABS: MEAN CORPUSCULAR HEMOGLOBIN 31.4 pg (27.0-33.0); MEAN CORPUSCULAR HGB CONC 33.5 g/dl (32.0-36.5); MEAN CORPUSCULAR VOLUME 93.7 fl (80.0-96.0); RED CELL DISTRIBUTION WIDTH 14.2 % (11.5-14.5); WHITE BLOOD COUNT 8.6 K/mm3 (4.0-10.0)
[2016-11-23] VITALS (25 sets, daily range): BP systolic 53–192; BP diastolic 49–92
[2016-11-23] MEDS: HEPARIN DRIP 25,000 UNITS in APPROPRIATE DILUENT 1 EA XX SCH ×2 (06:43→23:24)
[2016-11-23] MEDS: AZITHROMYCIN 250 MG TAB PO SCH (08:47)
[2016-11-23] MEDS: amLODIPine 5 MG TAB PO SCH (08:47)
[2016-11-23] MEDS: DOCUSATE SODIUM 100 MG CAP PO SCH ×2 (08:47→21:07)
[2016-11-23] MEDS: CARVedilol 3.125 MG TAB PO SCH ×2 (08:48→21:07)
[2016-11-23] MEDS: SENOKOT S TAB PO SCH ×2 (08:48→21:07)
[2016-11-23] MEDS: GABAPENTIN 400 MG CAP PO SCH ×3 (08:48→21:06)
[2016-11-23] MEDS: DULoxetine 30 MG CAP (CYMBALTA) PO SCH (08:48)
[2016-11-23] MEDS: cloNIDine 0.1 MG TAB PO SCH ×3 (08:48→21:06)
[2016-11-23] MEDS: PANTOPRAZOLE 40MG TAB (PROTONIX) PO SCH (08:48)
[2016-11-23 09:15] LABS: MEAN CORPUSCULAR HEMOGLOBIN 30.9 pg (27.0-33.0); MEAN CORPUSCULAR HGB CONC 33.3 g/dl (32.0-36.5); MEAN CORPUSCULAR VOLUME 92.8 fl (80.0-96.0); RED CELL DISTRIBUTION WIDTH 13.8 % (11.5-14.5); WHITE BLOOD COUNT 12.8 K/mm3 (4.0-10.0)
[2016-11-23 09:24] LABS: INR 1.09
[2016-11-23 10:03] LABS: ANION GAP 10 MEQ/L (8-16); BLOOD UREA NITROGEN 13 MG/DL (7-18); CALCIUM LEVEL 7.9 MG/DL (8.5-10.1); CARBON DIOXIDE LEVEL 27 MEQ/L (21-32); CHLORIDE LEVEL 98 MEQ/L (98-107); CREATININE FOR GFR 0.82 MG/DL (0.70-1.30); GLOMERULAR FILTRATION RATE > 60.0 (>56); GLUCOSE, FASTING 104 MG/DL (70-105); POTASSIUM SERUM 3.7 MEQ/L (3.5-5.1); SODIUM LEVEL 135 MEQ/L (136-145)
[2016-11-23] MEDS ORDERED: MOM 30ML SUSPENSION UDC PO ONE (10:30)
[2016-11-23 16:05] LABS: MEAN CORPUSCULAR HGB CONC 33.3 g/dl (32.0-36.5); MEAN CORPUSCULAR VOLUME 93.1 fl (80.0-96.0); WHITE BLOOD COUNT 11.7 K/mm3 (4.0-10.0)
[2016-11-23] MEDS: ALTEPLASE RECOMBINANT 25 MG in NS 225 ML IV SCH (18:34)
[2016-11-23] MEDS: MORPHINE 1MG/ML IN 0.9% NACL 100ML IV BAG IV PRN ×2 (19:42→20:16)
[2016-11-23] MEDS: ATORVASTATIN 20 MG TAB PO SCH (21:05)
[2016-11-23 21:45] LABS: MEAN CORPUSCULAR HEMOGLOBIN 31.7 pg (27.0-33.0); MEAN CORPUSCULAR HGB CONC 34.5 g/dl (32.0-36.5); MEAN CORPUSCULAR VOLUME 91.9 fl (80.0-96.0); RED CELL DISTRIBUTION WIDTH 14.2 % (11.5-14.5); WHITE BLOOD COUNT 9.4 K/mm3 (4.0-10.0)
[2016-11-24] VITALS (15 sets, daily range): BP systolic 113–182; BP diastolic 62–86
[2016-11-24] MEDS: NS 1,000 ML IV SCH ×2 (02:06→20:54)
[2016-11-24 03:38] LABS: MEAN CORPUSCULAR HEMOGLOBIN 31.1 pg (27.0-33.0); MEAN CORPUSCULAR HGB CONC 33.4 g/dl (32.0-36.5); MEAN CORPUSCULAR VOLUME 93.1 fl (80.0-96.0); RED CELL DISTRIBUTION WIDTH 14.2 % (11.5-14.5); WHITE BLOOD COUNT 9.1 K/mm3 (4.0-10.0)
[2016-11-24 03:57] LABS: ANION GAP 10 MEQ/L (8-16); BLOOD UREA NITROGEN 13 MG/DL (7-18); CALCIUM LEVEL 7.3 MG/DL (8.5-10.1); CARBON DIOXIDE LEVEL 26 MEQ/L (21-32); CHLORIDE LEVEL 95 MEQ/L (98-107); GLOMERULAR FILTRATION RATE > 60.0 (>56); GLUCOSE, FASTING 297 MG/DL (70-105); POTASSIUM SERUM 3.7 MEQ/L (3.5-5.1); SODIUM LEVEL 131 MEQ/L (136-145)
[2016-11-24] MEDS: GABAPENTIN 400 MG CAP PO SCH ×3 (09:14→21:24)
[2016-11-24] MEDS: SENOKOT S TAB PO SCH ×2 (09:15→21:26)
[2016-11-24] MEDS: DOCUSATE SODIUM 100 MG CAP PO SCH ×2 (09:15→21:26)
[2016-11-24] MEDS: CARVedilol 3.125 MG TAB PO SCH ×2 (09:15→21:26)
[2016-11-24] MEDS: AZITHROMYCIN 250 MG TAB PO SCH (09:15)
[2016-11-24] MEDS: cloNIDine 0.1 MG TAB PO SCH ×3 (09:16→21:25)
[2016-11-24] MEDS: amLODIPine 5 MG TAB PO SCH (09:16)
[2016-11-24] MEDS: DULoxetine 30 MG CAP (CYMBALTA) PO SCH (09:18)
[2016-11-24] MEDS: PANTOPRAZOLE 40MG TAB (PROTONIX) PO SCH (09:18)
[2016-11-24 09:39] LABS: MEAN CORPUSCULAR HEMOGLOBIN 31.2 pg (27.0-33.0); MEAN CORPUSCULAR HGB CONC 33.4 g/dl (32.0-36.5); MEAN CORPUSCULAR VOLUME 93.4 fl (80.0-96.0); RED CELL DISTRIBUTION WIDTH 13.9 % (11.5-14.5); WHITE BLOOD COUNT 8.3 K/mm3 (4.0-10.0)
[2016-11-24] MEDS: ALTEPLASE RECOMBINANT 25 MG in NS 225 ML IV SCH (16:47)
[2016-11-24] MEDS: HEPARIN DRIP 25,000 UNITS in APPROPRIATE DILUENT 1 EA XX SCH (16:48)
[2016-11-24] MEDS: MORPHINE 1MG/ML IN 0.9% NACL 100ML IV BAG IV PRN (17:42)
[2016-11-24 17:52] LABS: FIBRINOGEN 134 MG/DL (221-452)
--- NOTE | 2016-11-24 20:47 | REP ---
IMAGES DURING RIGHT LOWER EXTREMITY ANGIOGRAPHY: Multiple images are obtained during angiography of the right lower extremity. There is occlusion of the right superficial femoral artery proximally. 18.3 minutes fluoroscopy time utilized. Signed by Alton Xiong MD 11/25/2016 09:59 A
--- NOTE | 2016-11-24 20:50 | REP ---
IMAGES DURING RIGHT LOWER EXTREMITY ANGIOGRAPHY: Multiple images are obtained during right lower extremity angiography. 7.6 minutes of fluoroscopy time utilized for the procedure. Signed by Alton Xiong MD 11/25/2016 09:59 A
--- NOTE | 2016-11-24 20:53 | REP ---
RIGHT LOWER EXTREMITY ANGIOGRAPHY IMAGES: Multiple images are obtained during right lower extremity angiography. Flow is seen in the right superficial femoral artery. Flow is also seen in the right popliteal artery. 3.8 minutes of fluoroscopy time utilized. Signed by Alton Xiong MD 11/25/2016 09:59 A
[2016-11-24] MEDS: ATORVASTATIN 20 MG TAB PO SCH (21:26)
[2016-11-24 23:29] LABS: FIBRINOGEN 321 MG/DL (221-452)
[2016-11-25] VITALS (25 sets, daily range): BP systolic 101–239; BP diastolic 52–112
[2016-11-25 06:08] LABS: FIBRINOGEN 274 MG/DL (221-452)
[2016-11-25 06:14] LABS: ANION GAP 9 MEQ/L (8-16); BLOOD UREA NITROGEN 13 MG/DL (7-18); CALCIUM LEVEL 7.3 MG/DL (8.5-10.1); CARBON DIOXIDE LEVEL 26 MEQ/L (21-32); CHLORIDE LEVEL 95 MEQ/L (98-107); CREATININE FOR GFR 0.88 MG/DL (0.70-1.30); GLOMERULAR FILTRATION RATE > 60.0 (>56); GLUCOSE, FASTING 278 MG/DL (70-105); POTASSIUM SERUM 3.5 MEQ/L (3.5-5.1); SODIUM LEVEL 130 MEQ/L (136-145)
[2016-11-25] MEDS ORDERED: ISOVUE-300 61% 50ML VIAL (Q9967) As Ordered ONE (06:43)
[2016-11-25] MEDS ORDERED: HEPARIN 1,000 UNITS/ML 10ML VIAL (FOR RADIOLOGY& DIALYSIS ONLY) As Ordered ONE (06:43)
[2016-11-25] MEDS ORDERED: fentaNYL 100 MCG/2 ML INJECTION (J3010) As Ordered ONE ×3 (06:43→09:14)
[2016-11-25] MEDS ORDERED: MIDAZOLAM INJ 2 MG/2 ML VIAL (J2250) As Ordered ONE (06:43)
[2016-11-25] MEDS: DOCUSATE SODIUM 100 MG CAP PO SCH ×2 (11:09→20:38)
[2016-11-25] MEDS: GABAPENTIN 400 MG CAP PO SCH ×3 (11:09→20:38)
[2016-11-25] MEDS: amLODIPine 5 MG TAB PO SCH (11:10)
[2016-11-25] MEDS: CARVedilol 3.125 MG TAB PO SCH ×2 (11:10→20:39)
[2016-11-25] MEDS: SENOKOT S TAB PO SCH ×2 (11:10→20:39)
[2016-11-25] MEDS: DULoxetine 30 MG CAP (CYMBALTA) PO SCH (11:11)
[2016-11-25] MEDS: AZITHROMYCIN 250 MG TAB PO SCH (11:11)
[2016-11-25] MEDS: cloNIDine 0.1 MG TAB PO SCH ×3 (11:11→20:39)
[2016-11-25] MEDS: PANTOPRAZOLE 40MG TAB (PROTONIX) PO SCH (11:13)
--- NOTE | 2016-11-25 13:24 | REP ---
IMAGES DURING RIGHT LOWER EXTREMITY ANGIOGRAM: Multiple images are obtained during right lower extremity angiogram. There is a right iliac stent. Contrast is seen flowing from the right iliac vessels down through the popliteal artery. 6.1 minutes fluoroscopy time utilized. Signed by Alton Xiong MD 11/25/2016 04:27 P
[2016-11-25] MEDS ORDERED: BISACODYL 10 MG SUPP PR PRN (14:45)
[2016-11-25] MEDS: MORPHINE 1MG/ML IN 0.9% NACL 100ML IV BAG IV PRN (15:40)
[2016-11-25] MEDS ORDERED: MOM 30ML SUSPENSION UDC PO ONE (16:00)
[2016-11-25] MEDS: NS 1,000 ML IV SCH (18:20)
[2016-11-25] MEDS: MOM 30ML SUSPENSION UDC PO SCH (20:38)
[2016-11-25] MEDS: ATORVASTATIN 20 MG TAB PO SCH (20:40)
[2016-11-25] MEDS ORDERED: HEPARIN DRIP 25,000 UNITS in APPROPRIATE DILUENT 1 EA IV SCH ×2 (22:27→22:44)
[2016-11-25] MEDS ORDERED: HEPARIN SOD (PORCINE) 5000 UNITS/ML VIAL IV PRN (22:30)
[2016-11-25 23:12] LABS: MEAN CORPUSCULAR HEMOGLOBIN 30.7 pg (27.0-33.0); MEAN CORPUSCULAR HGB CONC 33.5 g/dl (32.0-36.5); MEAN CORPUSCULAR VOLUME 91.6 fl (80.0-96.0); RED CELL DISTRIBUTION WIDTH 13.9 % (11.5-14.5); WHITE BLOOD COUNT 12.2 K/mm3 (4.0-10.0)
[2016-11-26] VITALS (14 sets, daily range): BP systolic 115–213; BP diastolic 63–98
[2016-11-26] MEDS: MORPHINE 1MG/ML IN 0.9% NACL 100ML IV BAG IV PRN (02:25)
[2016-11-26 05:03] LABS: MEAN CORPUSCULAR HGB CONC 33.3 g/dl (32.0-36.5); RED CELL DISTRIBUTION WIDTH 13.9 % (11.5-14.5); WHITE BLOOD COUNT 11.1 K/mm3 (4.0-10.0)
[2016-11-26 05:07] LABS: INR 1.05
[2016-11-26 05:20] LABS: ANION GAP 5 MEQ/L (8-16); BLOOD UREA NITROGEN 17 MG/DL (7-18); CALCIUM LEVEL 8.7 MG/DL (8.5-10.1); CARBON DIOXIDE LEVEL 28 MEQ/L (21-32); CHLORIDE LEVEL 100 MEQ/L (98-107); CREATININE FOR GFR 0.97 MG/DL (0.70-1.30); GLOMERULAR FILTRATION RATE > 60.0 (>56); GLUCOSE, FASTING 114 MG/DL (70-105); POTASSIUM SERUM 4.3 MEQ/L (3.5-5.1); SODIUM LEVEL 133 MEQ/L (136-145)
[2016-11-26] MEDS: MOM 30ML SUSPENSION UDC PO SCH ×2 (09:00→20:40)
[2016-11-26] MEDS: SENOKOT S TAB PO SCH ×2 (09:00→20:41)
[2016-11-26] MEDS: DOCUSATE SODIUM 100 MG CAP PO SCH ×2 (09:00→20:39)
[2016-11-26] MEDS: PANTOPRAZOLE 40MG TAB (PROTONIX) PO SCH (09:54)
[2016-11-26] MEDS: CARVedilol 3.125 MG TAB PO SCH ×2 (09:56→20:40)
[2016-11-26] MEDS: GABAPENTIN 400 MG CAP PO SCH ×3 (09:56→20:41)
[2016-11-26] MEDS: DULoxetine 30 MG CAP (CYMBALTA) PO SCH (09:57)
[2016-11-26] MEDS: amLODIPine 5 MG TAB PO SCH (09:57)
[2016-11-26] MEDS: cloNIDine 0.1 MG TAB PO SCH ×3 (09:57→21:00)
[2016-11-26] MEDS ORDERED: HEPARIN SOD (PORCINE) 5000 UNITS/ML VIAL As Ordered ONE ×6 (10:31→16:01)
[2016-11-26] MEDS ORDERED: CONRAY-60 60% 50ML VIAL (Q9961) As Ordered ONE (11:11)
[2016-11-26] MEDS ORDERED: CLINDAMYCIN 600 MG/50 ML PREMIX BAG As Ordered ONE (11:11)
[2016-11-26] MEDS ORDERED: ceFAZolin 2 GM/D5W 50 ML IV BAG (J0690) As Ordered ONE ×2 (11:18→14:34)
[2016-11-26] MEDS ORDERED: THROMBIN SOLN 20,000 UNITS KIT As Ordered ONE (11:58)
[2016-11-26] MEDS ORDERED: ONDANSETRON 4MG/2ML VIAL (J2405) As Ordered ONE (12:18)
[2016-11-26] MEDS ORDERED: MIDAZOLAM INJ 2 MG/2 ML VIAL (J2250) As Ordered ONE (12:18)
[2016-11-26] MEDS ORDERED: ePHEDrine SULFATE 25 MG/5 ML(5MG/ML) SYRINGE As Ordered ONE ×3 (12:18→14:20)
[2016-11-26] MEDS ORDERED: fentaNYL 100 MCG/2 ML INJECTION (J3010) As Ordered ONE ×2 (12:18→14:29)
[2016-11-26] MEDS ORDERED: LIDOCAINE 2% INJ 100 MG/5 ML SDV (FOR ANES.) As Ordered ONE (12:18)
[2016-11-26] MEDS ORDERED: METOCLOPRAMIDE INJ 10MG/2ML VIAL (J2765) As Ordered ONE (12:18)
[2016-11-26] MEDS ORDERED: GLYCOPYRROLATE INJ 0.2 MG/ML 2 ML VIAL As Ordered ONE (12:19)
[2016-11-26] MEDS ORDERED: fentaNYL 250 MCG/5 ML INJECTION (J3010) As Ordered ONE (12:19)
[2016-11-26] MEDS ORDERED: PHENYLephrine HCL 500 MCG/5 ML (100MCG/ML) SYRINGE (J2370) As Ordered ONE (12:19)
[2016-11-26] MEDS ORDERED: ROCURONIUM BROMIDE 50 MG/5 ML VIAL/SYRINGE As Ordered ONE ×2 (12:19→12:22)
[2016-11-26] MEDS ORDERED: ETOMIDATE INJ 20MG/10ML VIAL As Ordered ONE (12:19)
[2016-11-26] MEDS ORDERED: NEOSTIGMINE 1MG/ML 5 ML SYRINGE (J2710) As Ordered ONE ×2 (12:19→16:26)
[2016-11-26] MEDS ORDERED: DESFLURANE 240 ML INHALANT As Ordered ONE (15:04)
[2016-11-26] MEDS ORDERED: LABETALOL HCL 100 MG/20 ML VIAL As Ordered ONE (16:32)
[2016-11-26] MEDS ORDERED: fentaNYL 100 MCG/2 ML INJECTION (J3010) IV PRN (17:00)
[2016-11-26] MEDS ORDERED: ONDANSETRON 4MG/2ML VIAL (J2405) IV PRN (17:00)
[2016-11-26] MEDS ORDERED: LR 1,000 ML IV SCH (17:00)
[2016-11-26] MEDS: HYDROmorphone HCL 1 MG/ML SYRINGE (J1170) IV PRN ×2 (17:25→17:30)
[2016-11-26] MEDS ORDERED: HYDROmorphone HCL 1 MG/ML SYRINGE (J1170) As Ordered ONE (17:29)
[2016-11-26] MEDS: NS 1,000 ML IV SCH (18:58)
[2016-11-26] MEDS: ATORVASTATIN 20 MG TAB PO SCH (20:40)
[2016-11-27] VITALS (12 sets, daily range): BP systolic 111–166; BP diastolic 58–105
[2016-11-27] MEDS: MORPHINE 1MG/ML IN 0.9% NACL 100ML IV BAG IV PRN ×2 (00:25→13:04)
[2016-11-27] MEDS: PANTOPRAZOLE 40MG TAB (PROTONIX) PO SCH (08:17)
[2016-11-27] MEDS: GABAPENTIN 400 MG CAP PO SCH ×3 (08:17→20:59)
[2016-11-27] MEDS: CARVedilol 3.125 MG TAB PO SCH ×2 (08:17→21:01)
[2016-11-27] MEDS: amLODIPine 5 MG TAB PO SCH (08:18)
[2016-11-27] MEDS: DULoxetine 30 MG CAP (CYMBALTA) PO SCH (08:18)
[2016-11-27] MEDS: cloNIDine 0.1 MG TAB PO SCH ×3 (08:18→20:59)
[2016-11-27] MEDS: SENOKOT S TAB PO SCH ×2 (08:19→20:59)
[2016-11-27] MEDS: DOCUSATE SODIUM 100 MG CAP PO SCH ×2 (08:19→20:58)
[2016-11-27] MEDS: MOM 30ML SUSPENSION UDC PO SCH ×2 (08:19→20:57)
--- NOTE | 2016-11-27 08:47 | ECGEPIP ---
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
[2016-11-27] MEDS: NS 1,000 ML IV SCH (18:45)
[2016-11-27] MEDS: ATORVASTATIN 20 MG TAB PO SCH (20:58)
[2016-11-28] MEDS: MORPHINE 1MG/ML IN 0.9% NACL 100ML IV BAG IV PRN ×2 (03:53→19:59)
[2016-11-28] MEDS: ONDANSETRON 4MG/2ML VIAL (J2405) IV PRN ×2 (04:23→09:56)
[2016-11-28 06:00] VITALS: BP 148/71
[2016-11-28] MEDS: MOM 30ML SUSPENSION UDC PO SCH ×2 (10:45→19:54)
[2016-11-28] MEDS: CARVedilol 3.125 MG TAB PO SCH ×2 (10:46→19:56)
[2016-11-28] MEDS: cloNIDine 0.1 MG TAB PO SCH ×3 (10:46→19:56)
[2016-11-28] MEDS: amLODIPine 5 MG TAB PO SCH (10:46)
[2016-11-28] MEDS: DULoxetine 30 MG CAP (CYMBALTA) PO SCH (10:46)
[2016-11-28] MEDS: DOCUSATE SODIUM 100 MG CAP PO SCH ×2 (10:47→19:58)
[2016-11-28] MEDS: GABAPENTIN 400 MG CAP PO SCH ×3 (10:47→19:59)
[2016-11-28] MEDS: PANTOPRAZOLE 40MG TAB (PROTONIX) PO SCH (10:47)
[2016-11-28] MEDS: SENOKOT S TAB PO SCH ×2 (10:47→19:57)
[2016-11-28] MEDS: HEPARIN DRIP 25,000 UNITS in APPROPRIATE DILUENT 1 EA IV SCH (11:52)
[2016-11-28 14:00] VITALS: BP 136/69
[2016-11-28] MEDS: ATORVASTATIN 20 MG TAB PO SCH (19:58)
[2016-11-28 22:00] VITALS: BP 120/68
[2016-11-29 00:59] LABS: MEAN CORPUSCULAR HEMOGLOBIN 30.9 pg (27.0-33.0); MEAN CORPUSCULAR HGB CONC 33.1 g/dl (32.0-36.5); MEAN CORPUSCULAR VOLUME 93.3 fl (80.0-96.0); RED CELL DISTRIBUTION WIDTH 13.5 % (11.5-14.5); WHITE BLOOD COUNT 9.1 K/mm3 (4.0-10.0)
[2016-11-29 02:00] VITALS: BP 132/70
[2016-11-29] MEDS: NS 1,000 ML IV SCH ×2 (02:16→20:59)
[2016-11-29] MEDS: HEPARIN DRIP 25,000 UNITS in APPROPRIATE DILUENT 1 EA IV SCH ×2 (02:37→20:56)
[2016-11-29] MEDS: MORPHINE 1MG/ML IN 0.9% NACL 100ML IV BAG IV PRN ×2 (05:46→16:03)
[2016-11-29 06:00] VITALS: BP 119/74
[2016-11-29 07:37] LABS: INR 1.06
[2016-11-29] MEDS: GABAPENTIN 400 MG CAP PO SCH ×3 (09:53→21:00)
[2016-11-29] MEDS: amLODIPine 5 MG TAB PO SCH (09:53)
[2016-11-29] MEDS: MOM 30ML SUSPENSION UDC PO SCH ×2 (09:53→20:59)
[2016-11-29] MEDS: PANTOPRAZOLE 40MG TAB (PROTONIX) PO SCH (09:54)
[2016-11-29] MEDS: cloNIDine 0.1 MG TAB PO SCH ×3 (09:54→21:02)
[2016-11-29] MEDS: SENOKOT S TAB PO SCH ×2 (09:54→21:01)
[2016-11-29] MEDS: DOCUSATE SODIUM 100 MG CAP PO SCH ×2 (09:54→21:01)
[2016-11-29] MEDS: CARVedilol 3.125 MG TAB PO SCH ×2 (09:54→21:00)
[2016-11-29] MEDS: DULoxetine 30 MG CAP (CYMBALTA) PO SCH (09:54)
[2016-11-29 10:00] VITALS: BP 187/87
[2016-11-29] MEDS: ONDANSETRON 4MG/2ML VIAL (J2405) IV PRN ×2 (10:52→20:59)
[2016-11-29 14:00] VITALS: BP 143/72
[2016-11-29] MEDS ORDERED: SODIUM CHLORIDE 0.9% INJ 10 ML SYR IV PRN (15:30)
[2016-11-29] MEDS: SODIUM CHLORIDE 0.9% INJ 10 ML SYR IV SCH (17:58)
[2016-11-29 18:00] VITALS: BP 147/78
--- NOTE | 2016-11-29 20:35 | REP ---
Procedure: PICC line insertion with Gautam-Brenda The procedure was performed under the direct supervision of Dr. Xiong. The risks and benefits of the procedure were explained to the patient and informed consent was obtained. The right basilic vein was localized using ultrasound guidance. The skin was prepped and draped in a sterile fashion. 2% lidocaine was used as a local anesthetic. Using ultrasound guidance the basilic vein was cannulated and a 0.018 guidewire was inserted and advanced to the SVC using fluoroscopic guidance. The needle was removed and a 5.5 Mauritian dilator and peel-away sheath was inserted over the guide wire. A 5.5 Mauritian dual lumen catheter was cut to length of 50 cm. The dilator was removed and the catheter was inserted over the guide wire with the tip ending in the SVC. The peel-away sheath was removed and the catheter was flushed with heparinized saline as per Hospital protocol. The catheter was affixed to the skin and a sterile dressing was applied. The the patient tolerated the procedure well and there were no immediate complications. 0.2 minutes of fluoro time was utilized for this procedure. Reviewed by NANCY Santizo 11/29/2016 04:12 PSigned by Alton Xiong MD 11/29/2016 08:25 P
[2016-11-29] MEDS: ATORVASTATIN 20 MG TAB PO SCH (21:01)
[2016-11-29 22:00] VITALS: BP 159/88
[2016-11-30] VITALS (7 sets, daily range): BP systolic 142–167; BP diastolic 76–87
[2016-11-30] MEDS: MORPHINE 1MG/ML IN 0.9% NACL 100ML IV BAG IV PRN ×2 (01:42→11:48)
[2016-11-30] MEDS: SODIUM CHLORIDE 0.9% INJ 10 ML SYR IV SCH ×2 (05:07→18:00)
[2016-11-30] MEDS: ONDANSETRON 4MG/2ML VIAL (J2405) IV PRN (05:29)
[2016-11-30] MEDS: HEPARIN DRIP 25,000 UNITS in APPROPRIATE DILUENT 1 EA IV SCH ×2 (08:51→18:12)
[2016-11-30] MEDS: MOM 30ML SUSPENSION UDC PO SCH ×2 (09:00→20:31)
[2016-11-30] MEDS: cloNIDine 0.1 MG TAB PO SCH ×3 (09:22→20:32)
[2016-11-30] MEDS: CARVedilol 3.125 MG TAB PO SCH ×2 (09:22→20:32)
[2016-11-30] MEDS: DULoxetine 30 MG CAP (CYMBALTA) PO SCH (09:22)
[2016-11-30] MEDS: amLODIPine 5 MG TAB PO SCH (09:22)
[2016-11-30] MEDS: SENOKOT S TAB PO SCH ×2 (09:23→20:32)
[2016-11-30] MEDS: GABAPENTIN 400 MG CAP PO SCH ×3 (09:23→20:31)
[2016-11-30] MEDS: DOCUSATE SODIUM 100 MG CAP PO SCH ×2 (09:23→20:31)
[2016-11-30] MEDS: PANTOPRAZOLE 40MG TAB (PROTONIX) PO SCH (09:23)
[2016-11-30] MEDS: NS 1,000 ML IV SCH (18:45)
[2016-11-30] MEDS ORDERED: MORPHINE 1MG/ML IN 0.9% NACL 100ML IV BAG IV PRN (19:45)
[2016-11-30] MEDS: ATORVASTATIN 20 MG TAB PO SCH (20:32)
[2016-12-01] MEDS: HEPARIN DRIP 25,000 UNITS in APPROPRIATE DILUENT 1 EA IV SCH ×2 (04:47→15:15)
[2016-12-01] MEDS: SODIUM CHLORIDE 0.9% INJ 10 ML SYR IV SCH ×2 (05:06→18:00)
[2016-12-01 06:00] VITALS: BP 176/86
[2016-12-01] MEDS: GABAPENTIN 400 MG CAP PO SCH ×3 (08:38→21:38)
[2016-12-01] MEDS: PANTOPRAZOLE 40MG TAB (PROTONIX) PO SCH (08:38)
[2016-12-01] MEDS: DULoxetine 30 MG CAP (CYMBALTA) PO SCH (08:38)
[2016-12-01] MEDS: CARVedilol 3.125 MG TAB PO SCH ×2 (08:38→21:38)
[2016-12-01] MEDS: DOCUSATE SODIUM 100 MG CAP PO SCH ×2 (08:39→21:38)
[2016-12-01] MEDS: SENOKOT S TAB PO SCH ×2 (08:39→21:39)
[2016-12-01] MEDS: amLODIPine 5 MG TAB PO SCH (08:39)
[2016-12-01] MEDS: MOM 30ML SUSPENSION UDC PO SCH ×2 (08:39→21:00)
[2016-12-01] MEDS: cloNIDine 0.1 MG TAB PO SCH ×3 (08:39→21:38)
[2016-12-01 10:00] VITALS: BP 158/87
[2016-12-01 18:00] VITALS: BP 138/92
[2016-12-01 21:20] LABS: MEAN CORPUSCULAR HEMOGLOBIN 30.2 pg (27.0-33.0); MEAN CORPUSCULAR HGB CONC 33.4 g/dl (32.0-36.5); MEAN CORPUSCULAR VOLUME 90.4 fl (80.0-96.0); RED CELL DISTRIBUTION WIDTH 13.5 % (11.5-14.5); WHITE BLOOD COUNT 16.4 K/mm3 (4.0-10.0)
[2016-12-01] MEDS: NS 1,000 ML IV SCH (21:30)
[2016-12-01] MEDS: ATORVASTATIN 20 MG TAB PO SCH (21:39)
[2016-12-01 22:00] VITALS: BP 138/70
[2016-12-02] MEDS: HEPARIN DRIP 25,000 UNITS in APPROPRIATE DILUENT 1 EA IV SCH ×2 (01:56→10:39)
[2016-12-02 02:00] VITALS: BP 155/83
[2016-12-02] MEDS: SODIUM CHLORIDE 0.9% INJ 10 ML SYR IV SCH ×3 (05:25→19:15)
[2016-12-02 06:00] VITALS: BP 152/80
[2016-12-02] MEDS: MOM 30ML SUSPENSION UDC PO SCH ×2 (09:00→20:18)
[2016-12-02] MEDS: DOCUSATE SODIUM 100 MG CAP PO SCH ×2 (09:00→20:19)
[2016-12-02] MEDS: SENOKOT S TAB PO SCH ×2 (09:00→20:19)
[2016-12-02] MEDS: DULoxetine 30 MG CAP (CYMBALTA) PO SCH (09:03)
[2016-12-02] MEDS: PANTOPRAZOLE 40MG TAB (PROTONIX) PO SCH (09:03)
[2016-12-02] MEDS: CARVedilol 3.125 MG TAB PO SCH ×2 (09:04→20:19)
[2016-12-02] MEDS: amLODIPine 5 MG TAB PO SCH (09:04)
[2016-12-02] MEDS: GABAPENTIN 400 MG CAP PO SCH ×3 (09:05→20:18)
[2016-12-02] MEDS: cloNIDine 0.1 MG TAB PO SCH ×3 (09:05→20:19)
[2016-12-02 10:00] VITALS: BP 131/80
[2016-12-02] MEDS ORDERED: PERCOCET 5MG/325MG TAB PO PRN ×2 (11:45)
[2016-12-02 12:15] LABS: MEAN CORPUSCULAR HEMOGLOBIN 30.7 pg (27.0-33.0); MEAN CORPUSCULAR HGB CONC 33.6 g/dl (32.0-36.5); MEAN CORPUSCULAR VOLUME 91.3 fl (80.0-96.0); RED CELL DISTRIBUTION WIDTH 13.6 % (11.5-14.5); WHITE BLOOD COUNT 17.9 K/mm3 (4.0-10.0)
[2016-12-02 12:22] LABS: INR 1.07
[2016-12-02 12:46] LABS: ANION GAP 9 MEQ/L (8-16); BLOOD UREA NITROGEN 13 MG/DL (7-18); CALCIUM LEVEL 8.3 MG/DL (8.5-10.1); CARBON DIOXIDE LEVEL 27 MEQ/L (21-32); CHLORIDE LEVEL 100 MEQ/L (98-107); CREATININE FOR GFR 0.95 MG/DL (0.70-1.30); GLOMERULAR FILTRATION RATE > 60.0 (>56); GLUCOSE, FASTING 112 MG/DL (70-105); POTASSIUM SERUM 3.6 MEQ/L (3.5-5.1); SODIUM LEVEL 136 MEQ/L (136-145)
[2016-12-02 14:00] VITALS: BP 175/87
[2016-12-02] MEDS: NS 1,000 ML IV SCH (16:48)
[2016-12-02] MEDS ORDERED: NS 1,000 ML IV SCH (18:23)
[2016-12-02] MEDS ORDERED: diphenhydrAMINE INJ 50MG/ML VIAL (J1200) IV PRN (18:30)
[2016-12-02] MEDS ORDERED: EPIDURAL/PCA KEYS XX PRN (18:30)
[2016-12-02] MEDS ORDERED: NALBUPHINE HCL 10 MG/ML AMP (J2300) IV PRN (18:30)
[2016-12-02] MEDS ORDERED: ONDANSETRON 4MG/2ML VIAL (J2405) IV PRN (18:30)
[2016-12-02] MEDS ORDERED: NALOXONE INJ 0.4 MG/1 ML VIAL (J2310) IV PRN (18:30)
[2016-12-02] MEDS ORDERED: MORPHINE 1MG/ML IN 0.9% NACL 100ML IV BAG IV PRN (18:30)
[2016-12-02] MEDS ORDERED: GASTROGRAFIN SOLUTION 30ML PO ONE (19:00)
[2016-12-02] MEDS ORDERED: GASTROGRAFIN SOLUTION 30ML (Q9963) PO ONE (19:30)
[2016-12-02] MEDS: ATORVASTATIN 20 MG TAB PO SCH (20:19)
[2016-12-02 22:00] VITALS: BP 138/81
[2016-12-03] MEDS: HEPARIN DRIP 25,000 UNITS in APPROPRIATE DILUENT 1 EA IV SCH ×3 (03:29→22:23)
[2016-12-03 06:00] VITALS: BP 118/69
[2016-12-03] MEDS: DOCUSATE SODIUM 100 MG CAP PO SCH ×2 (09:02→21:17)
[2016-12-03] MEDS: DULoxetine 30 MG CAP (CYMBALTA) PO SCH (09:02)
[2016-12-03] MEDS: GABAPENTIN 400 MG CAP PO SCH ×3 (09:02→21:18)
[2016-12-03] MEDS: MOM 30ML SUSPENSION UDC PO SCH ×2 (09:02→21:18)
[2016-12-03] MEDS: cloNIDine 0.1 MG TAB PO SCH ×3 (09:03→21:18)
[2016-12-03] MEDS: CARVedilol 3.125 MG TAB PO SCH ×2 (09:03→21:18)
[2016-12-03] MEDS: PANTOPRAZOLE 40MG TAB (PROTONIX) PO SCH (09:03)
[2016-12-03] MEDS: amLODIPine 5 MG TAB PO SCH (09:03)
[2016-12-03] MEDS: SENOKOT S TAB PO SCH ×2 (09:03→21:17)
[2016-12-03 10:00] VITALS: BP 123/62
[2016-12-03 14:00] VITALS: BP 158/81
[2016-12-03] MEDS: NYSTATIN 500,000 U/5 ML SUSP UDC SS SCH ×2 (14:08→17:59)
[2016-12-03] MEDS: MORPHINE 1MG/ML IN 0.9% NACL 100ML IV BAG IV PRN (14:08)
--- NOTE | 2016-12-03 16:50 | IPN ---
DATE: 12/03/2016 SUBJECTIVE: The patient complains of continued pain in his right foot and ankle region. He also has complaints today of being sore on the inside of his mouth and throat. OBJECTIVE: The patient is afebrile with stable vital signs. Oral mucosa appears to be free of lesions or abnormalities. No thrush visualized in the oral mucosa or pharynx. Heart is regular rate and rhythm. Lungs are clear. Incisions are healing well. The right foot shows sluggish capillary refill and is cool from the toes to the mid forefoot. The remainder of the foot is well-perfused. ASSESSMENT: Patient is a 56-year-old male with severe arterial insufficiency in the right and left lower extremity. The patient has undergone angioplasty and stenting of his right common and external iliac arteries as well as bypass grafting which required revision after attempted thrombolysis was unsuccessful. The patient has severe tibial disease with only peroneal artery runoff into the right foot and only collateral filling visualized on angiography into the right foot. The patient's bypass graft is patent but with severe small vessel disease distally there is concern that the patient may require amputation of the toes. The other options may be attempted further distal bypass with exploration of his posterior tibial and anterior tibial arteries at the ankle to see if there is any patency of these vessels that was not evaluated and visualized on angiography. These options were discussed with the patient and his mother. There was also a discussion of possible epidural injections and/or catheter placement by the patient's mother as this was recommended to her by a friend who was an anesthesiologist. I discussed with her the patient being on anticoagulation and inability to perform epidural injections or catheters while the patient is on anticoagulation. If the anticoagulation is ceased, this may make his foot worse and result in loss of his foot and I do not recommend ceasing the anticoagulation at this time. The patient will be started on Coumadin with 5 mg this evening and transitioned off of heparin over the next few days. The pain management team was also asked to see the patient to evaluate for possible alternative ways of helping with the patient's pain. The patient will also be started on nystatin swish and swallow for his discomfort in his mouth and pharynx. I discussed with the patient that this may not help as I do not see any signs of oral thrush, but we will give this a try to see if this helps with his symptoms.
[2016-12-03] MEDS ORDERED: WARFARIN SOD 5 MG TAB PO SCH (17:00)
[2016-12-03] MEDS: SODIUM CHLORIDE 0.9% INJ 10 ML SYR IV SCH (17:00)
--- NOTE | 2016-12-03 17:26 | CR.PDOC ---
[facility] Pain Clinic Consultation General Date of Consultation: 12/03/16 Consultation Report For: Aquilino King MD Chief Complaint The patient is a 56-year-old male admitted with a reason for visit of Ischemia Of Right Lower Extremity, Severe. Pain management is asked to see the patient for continuing pain, right lower extremity, particularly the feet History of Present Illness Zack Marino Junior is a 56-year-old gentleman who was admitted to [facility] on 11/17/2016 with increasing pain and loss of circulation in his right lower extremity. He did undergo angiogram and revascularization surgery with a right aorto-tibular graft. Since his admission. He has undergone at least 3 angiograms to this area. He has continued to have intense pain to the right lower extremity, which is concentrated in the right foot. He notes that any sudden movement or touch to the right toes is excruciating. He has a sense of aching in the right leg radiating to the level of the groin. He does note, however, over the last 24 hours that the pain level has improved. He states that since his hospitalization almost 3 weeks ago. He has had barely any sleep, but he believes that he can sleep tonight. Since admission he has been on a morphine FILAMENT TESTER which normally keeps his pain fairly well controlled. States that his FILAMENT TESTER was discontinued and things were going well until his leg got bumped and then the pain escalated morphine FILAMENT TESTER was restarted. Rates his pain level today as an 8/10, but states that this is manageable. Home Medications Scheduled Amlodipine Besylate (Amlodipine Besylate) 5 Mg Tab, 5 MG PO DAILY, (Reported) Atorvastatin Calcium (Atorvastatin Calcium) 20 Mg Tab, 20 MG PO QHS, (Reported) Carvedilol (Carvedilol) 3.125 Mg Tab, 3.125 MG PO BID, (Reported) Clonidine Hydrochloride (Clonidine HCl) 0.1 Mg Tab, 0.1 MG PO TID, (Reported) Duloxetine Hcl (Duloxetine HCl) 30 Mg Cap, 30 MG PO DAILY, (Reported) Finasteride (Finasteride) 5 Mg Tab, 5 MG PO DAILY Gabapentin (Gabapentin) 800 Mg Tab, 800 MG PO TID, (Reported) Scheduled PRN Albuterol Sulfate (Ventolin Hfa) 200 Puff/8 Gm Aers, 2 PUFF INH QID PRN for SHORTNESS OF BREATH, (Reported) Allergies Coded Allergies: No Known Drug Allergy (Verified Allergy, Unknown, 07/23/16) Past Medical History Medical History 1. Peripheral vascular disease. 2. Coronary artery disease. 3. History of acute right cerebellar CVA. 4. Hypertension. 5. Colon cancer. 6. History of pulmonary emboli. 7. Chronic obstructive pulmonary disease. 8. History of depression Surgical History Recent aorta tubular graft and angiogram. See records for further operative events Social History Social History Denies tobacco, alcohol, or illicit substance abuse. Lives with his sister who helps manage his medications. As other supportive family members including his mother, who is accompanying him today. Review of Systems Subjective HEENT: Denies: head aches, vision problems, hearing problems Skin: Reports: change in color (right foot blue in color), bruising (from the groin bilaterally to through both legs, status post surgical manipulation) Pulmonary: Reports: shortness of breath (on exertion), Denies: cough Cardiovascular: Denies: chest pain, palpitations Gastrointestinal: Reports: normal bowel movements, nausea, Denies: loss of bowel control Genitourinary: Denies: dysuria, hematuria, loss of bladder control Hematologic: Reports: blood clots (history of pulmonary emboli), other ( chronically on Coumadin therapy), Denies: easy bleeding, blood dyscrasias Endocrine: Denies: Diabetes mellitus Musculoskeletal: Reports: other (intense pain in right greater than left lower extremity, particularly the foot) Neurological: Reports: numbness, pre-existing deficit, other (history of right cerebellar CVA with right lower extremity weakness), Denies: headache, seizures, tremors, weakness, migraines Psych: Reports: mood normal, depression (history of depression is very frustrated with lack of progress), Denies: thoughts of self harm, thoughts of harming other Physical Examination Physical Examination Vital Signs/I&O Vital Signs Date Time Temp Pulse Resp B/P (MAP) Pulse Ox O2 Delivery O2 Flow Rate FiO2 12/03/16 16:40 158/81 12/03/16 14:00 98.5 100 20 97 Room Air 12/01/16 10:00 2.0 I&O- Last 24 Hours up to 6 AM 12/03/16 05:59 Intake Total 1853 ml Output Total 1700 ml Balance 153 ml Visual Analog Score (VAS): 8 Neck Exam: Negative: Lymphadenopathy, Thyromegaly Chest Exam: Positive: Clear to auscultation, Negative: Wheezing, Rales Heart Exam: Positive: Regular rate and rhythm, Normal S1, S2, Negative: Murmurs, Rubs Abdominal Exam: Positive: Normal bowel sounds, Soft, Nondistended Extremity Exam: Positive: Other (right dorsal patellas, pulse noted at arch location. Trace edema noted bilateral lower extremities. Left foot warm to touch. Right foot. Cold Limited range of motion of toes and ankle. No skin breakdown noted) Skin Exam: Positive: Warm, Dry, Other (multiple ecchymotic areas noted over sacrum bilaterally and right lower extremity), Negative: Rashes, Lesions Neuro Exam: Positive: Other (significant weakness noted with flexion and extension. Bilateral lower extremities. Is able to sit up in the bed) Psych Exam: Positive: Mental status NL, Mood NL, Alert and oriented x 3 (has difficulty staying on target combines recent and past history. Is not currently responding to any auditory or visual hallucinations) Laboratory Data Labs 24H Laboratory Tests 2 12/02/16 23:03: Activated Partial Thromboplast Time 54.0H 12/03/16 05:05: Activated Partial Thromboplast Time 60.0H 12/03/16 11:27: Activated Partial Thromboplast Time 50.9H 12/03/16 16:45: Microbiology Microbiology 12/03/16 Stool Occult Blood (JADA) - Final, Complete 11/26/16 Stool Occult Blood (JADA) - Final, Complete 12/01/16 Urine Culture - Final, Complete Assessment 1. Right leg and foot pain status post revascularization surgery. 2. Multiple medical problems including severe peripheral vascular disease, COPD , history of pulmonary requiring Coumadin/heparin therapy, coronary artery disease, history of stroke, hypertension, and depression. Recommendation and Plan Today the patient states that he feels he has turned the corner. He notes that he is more comfortable and he believes he is we'll be able to sleep tonight. He notes that his pain is exacerbated by any sudden touch to his foot or to to the bed. He just received his soft boots to prevent this area at this time would recommend continuing his morphine FILAMENT TESTER, for at least another day. Would look to start him on a scheduled dose of oxycodone perhaps at 5 mg every 6 hours. Could slowly increase this to 15 mg if needed. In the past. She has been on long- acting morphine, but he finds this frightening as he does not know when it will work. He is started to get out of bed to the chair, which will be helpful. He understands that it will be a long road to feeling at his best. Certainly could give a trial. 2. Amitriptyline 10 mg at bedtime or Soma 350 mg 1 at bedtime to assist with muscle spasms and sleep. Could also give trial to a small piece of a lidocaine patch to be applied to the top of the right foot. Unfortunately, nothing will prevent pain. If pain is occurring when the foot is jostled other than to prevent the jostling. We'll follow-up with Mr. Marino next week. Thank you [Jose Armando], for allowing us to participate in the care of your patient, [Zack Marino ]. Should you have any questions we will be glad to discuss this with you at any time please contact us here at the pain center at [phone]. Ginny Milan Dec 03, 2016 17:26
[2016-12-03] MEDS: NS 1,000 ML IV SCH (21:15)
[2016-12-03] MEDS: ATORVASTATIN 20 MG TAB PO SCH (21:16)
[2016-12-03 22:00] VITALS: BP 137/72
[2016-12-04] MEDS: NYSTATIN 500,000 U/5 ML SUSP UDC SS SCH ×5 (00:30→23:41)
[2016-12-04 02:00] VITALS: BP 128/80
[2016-12-04] MEDS: SODIUM CHLORIDE 0.9% INJ 10 ML SYR IV SCH ×2 (05:04→18:00)
[2016-12-04 06:00] VITALS: BP 127/65
[2016-12-04] MEDS: HEPARIN DRIP 25,000 UNITS in APPROPRIATE DILUENT 1 EA IV SCH ×3 (07:07→23:46)
[2016-12-04] MEDS: MOM 30ML SUSPENSION UDC PO SCH ×2 (09:20→22:02)
[2016-12-04] MEDS: SENOKOT S TAB PO SCH ×2 (09:20→22:00)
[2016-12-04] MEDS: cloNIDine 0.1 MG TAB PO SCH ×3 (09:20→22:00)
[2016-12-04] MEDS: DULoxetine 30 MG CAP (CYMBALTA) PO SCH (09:21)
[2016-12-04] MEDS: CARVedilol 3.125 MG TAB PO SCH ×2 (09:21→22:02)
[2016-12-04] MEDS: PANTOPRAZOLE 40MG TAB (PROTONIX) PO SCH (09:21)
[2016-12-04] MEDS: DOCUSATE SODIUM 100 MG CAP PO SCH ×2 (09:21→22:01)
[2016-12-04] MEDS: GABAPENTIN 400 MG CAP PO SCH ×3 (09:21→22:00)
[2016-12-04] MEDS: amLODIPine 5 MG TAB PO SCH (09:21)
[2016-12-04 10:00] VITALS: BP 131/66
--- NOTE | 2016-12-04 10:55 | IPN ---
DATE: 12/04/2016 SUBJECTIVE: The patient is having difficulty sleeping this evening. States that the pain in his right foot is improving and is less and he is able to touch his foot with less discomfort than previously experienced. Denies any chest pain or shortness of breath. No transient ischemic attacks (TIAs). No amaurosis fugax. No dysarthria. No paralysis or paresis of an extremity. OBJECTIVE: Afebrile with a temperature of 99.1. Vital signs are stable. Neurologic: Awake, alert and oriented times three with no focal deficits. Neck is supple with no carotid bruits. Heart is regular rate and rhythm. Lungs clear to auscultation. Abdomen soft, nontender, nondistended, with no palpable pulsatile masses. Upper extremities show 2+ brachial, radial and ulnar pulses with good perfusion. Left lower extremity shows ecchymosis at the cannulation site in the left inguinal region with good perfusion of the left foot. The right lower extremity shows the incisions to be healing well. There is ecchymosis in the right groin which is unchanged. The extent of the perfusion into the right foot has improved with the capillary refill improving in the distal forefoot and toes. ASSESSMENT AND PLAN: The patient is a 56-year-old male with severe arterial occlusive disease in his right aortoiliac system, right femoral popliteal system and tibial peroneal system. The patient has undergone stenting as well as bypass grafting and revision of his bypass and now is on heparin with conversion to Coumadin and has significantly better flow into the right lower extremity. We will continue to dose his Coumadin based on his PT/INR and continue with his heparin until his INR is greater than 2.5. The patient also states that the oral discomfort in his oral mucosa and pharynx have improved and are less symptomatic.
[2016-12-04 14:00] VITALS: BP 127/73
[2016-12-04 16:54] VITALS: BP 144/67
[2016-12-04] MEDS ORDERED: WARFARIN SOD 5 MG TAB PO ONE (17:00)
[2016-12-04] MEDS: MORPHINE 1MG/ML IN 0.9% NACL 100ML IV BAG IV PRN (18:10)
[2016-12-04] MEDS: NS 1,000 ML IV SCH (21:58)
[2016-12-04] MEDS: ATORVASTATIN 20 MG TAB PO SCH (21:58)
[2016-12-04 22:00] VITALS: BP 145/70
[2016-12-05 02:00] VITALS: BP 141/76
[2016-12-05] MEDS: SODIUM CHLORIDE 0.9% INJ 10 ML SYR IV SCH ×2 (05:24→17:31)
[2016-12-05 06:00] VITALS: BP 138/75
[2016-12-05] MEDS: NYSTATIN 500,000 U/5 ML SUSP UDC SS SCH ×4 (06:28→22:18)
[2016-12-05] MEDS: HEPARIN DRIP 25,000 UNITS in APPROPRIATE DILUENT 1 EA IV SCH ×2 (07:41→16:33)
[2016-12-05] MEDS: MOM 30ML SUSPENSION UDC PO SCH ×2 (09:00→22:17)
[2016-12-05] MEDS: cloNIDine 0.1 MG TAB PO SCH ×3 (09:21→22:20)
[2016-12-05] MEDS: SENOKOT S TAB PO SCH ×2 (09:21→22:19)
[2016-12-05] MEDS: GABAPENTIN 400 MG CAP PO SCH ×3 (09:21→22:18)
[2016-12-05] MEDS: amLODIPine 5 MG TAB PO SCH (09:21)
[2016-12-05] MEDS: DULoxetine 30 MG CAP (CYMBALTA) PO SCH (09:22)
[2016-12-05] MEDS: DOCUSATE SODIUM 100 MG CAP PO SCH ×2 (09:22→22:19)
[2016-12-05] MEDS: PANTOPRAZOLE 40MG TAB (PROTONIX) PO SCH (09:22)
[2016-12-05] MEDS: CARVedilol 3.125 MG TAB PO SCH ×2 (09:22→22:20)
[2016-12-05 10:00] VITALS: BP 133/72
[2016-12-05 14:00] VITALS: BP 137/76
[2016-12-05] MEDS: MORPHINE 1MG/ML IN 0.9% NACL 100ML IV BAG IV PRN (18:00)
[2016-12-05] MEDS: NS 1,000 ML IV SCH (18:45)
[2016-12-05] MEDS ORDERED: WARFARIN SOD 5 MG TAB PO ONE (19:15)
[2016-12-05] MEDS ORDERED: MORPHINE 10 MG/ML 1ML VIAL IV ONE (19:15)
[2016-12-05 22:00] VITALS: BP 141/85
[2016-12-05] MEDS: diazePAM 2 MG TAB PO SCH (22:19)
[2016-12-05] MEDS: ATORVASTATIN 20 MG TAB PO SCH (22:19)
[2016-12-05 22:40] LABS: MEAN CORPUSCULAR HEMOGLOBIN 30.9 pg (27.0-33.0); MEAN CORPUSCULAR HGB CONC 33.6 g/dl (32.0-36.5); MEAN CORPUSCULAR VOLUME 91.7 fl (80.0-96.0)
[2016-12-05 23:01] LABS: ANION GAP 8 MEQ/L (8-16); BLOOD UREA NITROGEN 17 MG/DL (7-18); CALCIUM LEVEL 8.6 MG/DL (8.5-10.1); CARBON DIOXIDE LEVEL 25 MEQ/L (21-32); CHLORIDE LEVEL 98 MEQ/L (98-107); CREATININE FOR GFR 1.04 MG/DL (0.70-1.30); GLOMERULAR FILTRATION RATE > 60.0 (>56); GLUCOSE, FASTING 106 MG/DL (70-105); POTASSIUM SERUM 4.2 MEQ/L (3.5-5.1); SODIUM LEVEL 131 MEQ/L (136-145)
[2016-12-05 23:30] VITALS: BP 126/82
[2016-12-06] VITALS (11 sets, daily range): BP systolic 110–151; BP diastolic 70–87
[2016-12-06] MEDS: HEPARIN DRIP 25,000 UNITS in APPROPRIATE DILUENT 1 EA IV SCH ×2 (02:46→10:58)
[2016-12-06] MEDS ORDERED: ALPRAZolam 0.25 MG TAB PO ONE (05:00)
[2016-12-06] MEDS: SODIUM CHLORIDE 0.9% INJ 10 ML SYR IV SCH ×2 (05:20→18:00)
[2016-12-06] MEDS: NYSTATIN 500,000 U/5 ML SUSP UDC SS SCH ×3 (05:20→18:00)
[2016-12-06 05:48] LABS: MEAN CORPUSCULAR HEMOGLOBIN 30.4 pg (27.0-33.0); MEAN CORPUSCULAR HGB CONC 32.7 g/dl (32.0-36.5); MEAN CORPUSCULAR VOLUME 92.9 fl (80.0-96.0); RED CELL DISTRIBUTION WIDTH 14.1 % (11.5-14.5)
[2016-12-06 05:55] LABS: INR 1.22
[2016-12-06 06:52] LABS: ANION GAP 8 MEQ/L (8-16); BLOOD UREA NITROGEN 18 MG/DL (7-18); CALCIUM LEVEL 8.7 MG/DL (8.5-10.1); CARBON DIOXIDE LEVEL 28 MEQ/L (21-32); CHLORIDE LEVEL 97 MEQ/L (98-107); CREATININE FOR GFR 1.06 MG/DL (0.70-1.30); GLOMERULAR FILTRATION RATE > 60.0 (>56); GLUCOSE, FASTING 96 MG/DL (70-105); MAGNESIUM LEVEL 2.3 MG/DL (1.8-2.4); POTASSIUM SERUM 4.4 MEQ/L (3.5-5.1); SODIUM LEVEL 133 MEQ/L (136-145)
[2016-12-06] MEDS: DOCUSATE SODIUM 100 MG CAP PO SCH ×2 (09:05→21:00)
[2016-12-06] MEDS: cloNIDine 0.1 MG TAB PO SCH ×3 (09:05→21:00)
[2016-12-06] MEDS: MOM 30ML SUSPENSION UDC PO SCH ×2 (09:05→21:00)
[2016-12-06] MEDS: DULoxetine 30 MG CAP (CYMBALTA) PO SCH (09:05)
[2016-12-06] MEDS: SENOKOT S TAB PO SCH ×2 (09:05→21:00)
[2016-12-06] MEDS: amLODIPine 5 MG TAB PO SCH (09:05)
[2016-12-06] MEDS: PANTOPRAZOLE 40MG TAB (PROTONIX) PO SCH (09:06)
[2016-12-06] MEDS: GABAPENTIN 400 MG CAP PO SCH ×3 (09:06→21:00)
[2016-12-06] MEDS: CARVedilol 3.125 MG TAB PO SCH ×2 (09:06→21:00)
[2016-12-06] MEDS: MORPHINE 1MG/ML IN 0.9% NACL 100ML IV BAG IV PRN ×2 (10:29→23:36)
[2016-12-06] MEDS ORDERED: HEPARIN 25,000 UNITS/250 ML D5W BAG (100 UNITS/ML) As Ordered ONE (10:50)
[2016-12-06] MEDS ORDERED: HEPARIN SOD (PORCINE) 5000 UNITS/ML VIAL IV STA (11:23)
[2016-12-06] MEDS ORDERED: CLINDAMYCIN INJ 900MG/6ML VIAL As Ordered ONE (16:05)
[2016-12-06] MEDS ORDERED: CONRAY-60 60% 50ML VIAL (Q9961) As Ordered ONE (16:05)
[2016-12-06] MEDS ORDERED: HEPARIN SOD (PORCINE) 5000 UNITS/ML VIAL As Ordered ONE ×2 (16:05→16:06)
[2016-12-06] MEDS ORDERED: ceFAZolin 2 GM/D5W 50 ML IV BAG (J0690) As Ordered ONE (17:11)
[2016-12-06] MEDS ORDERED: THROMBIN SOLN 20,000 UNITS KIT As Ordered ONE (17:14)
[2016-12-06] MEDS ORDERED: fentaNYL 100 MCG/2 ML INJECTION (J3010) As Ordered ONE ×2 (17:15→18:14)
[2016-12-06] MEDS ORDERED: MIDAZOLAM INJ 2 MG/2 ML VIAL (J2250) As Ordered ONE (17:15)
[2016-12-06] MEDS ORDERED: PROPOFOL 500 MG/50 ML VIAL As Ordered ONE ×2 (17:15→18:18)
[2016-12-06] MEDS ORDERED: ALTEPLASE 2 MG/2 ML VIAL (J2997 PER 1MG) XX STA (17:43)
[2016-12-06] MEDS ORDERED: ROCURONIUM BROMIDE 50 MG/5 ML VIAL/SYRINGE As Ordered ONE (17:51)
[2016-12-06] MEDS ORDERED: ONDANSETRON 4MG/2ML VIAL (J2405) As Ordered ONE (17:51)
[2016-12-06] MEDS: NS 1,000 ML IV SCH (18:33)
[2016-12-06] MEDS ORDERED: PHENYLephrine HCL 500 MCG/5 ML (100MCG/ML) SYRINGE (J2370) As Ordered ONE ×2 (18:38→18:58)
[2016-12-06] MEDS ORDERED: ePHEDrine SULFATE 25 MG/5 ML(5MG/ML) SYRINGE As Ordered ONE (18:42)
[2016-12-06] MEDS ORDERED: HEPARIN DRIP 25,000 UNITS in APPROPRIATE DILUENT 1 EA IV ONE (19:15)
[2016-12-06] MEDS ORDERED: HYDROmorphone HCL 2 MG/ML 1ML VIAL (J1170) As Ordered ONE (19:22)
[2016-12-06] MEDS ORDERED: PROPOFOL 200 MG/20 ML VIAL As Ordered ONE (19:47)
[2016-12-06 20:54] LABS: MEAN CORPUSCULAR HEMOGLOBIN 30.1 pg (27.0-33.0); MEAN CORPUSCULAR HGB CONC 32.2 g/dl (32.0-36.5); MEAN CORPUSCULAR VOLUME 93.4 fl (80.0-96.0); RED CELL DISTRIBUTION WIDTH 13.9 % (11.5-14.5); WHITE BLOOD COUNT 21.4 K/mm3 (4.0-10.0)
[2016-12-06] MEDS: diazePAM 2 MG TAB PO SCH (21:00)
[2016-12-06] MEDS ORDERED: HYDROmorphone HCL 1 MG/ML SYRINGE (J1170) IV PRN (21:00)
[2016-12-06] MEDS ORDERED: fentaNYL 100 MCG/2 ML INJECTION (J3010) IV PRN (21:00)
[2016-12-06] MEDS: ATORVASTATIN 20 MG TAB PO SCH (21:00)
[2016-12-06] MEDS ORDERED: ONDANSETRON 4MG/2ML VIAL (J2405) IV PRN ×2 (21:00→23:45)
[2016-12-06] MEDS ORDERED: PERCOCET 5MG/325MG TAB PO PRN (21:00)
[2016-12-06] MEDS ORDERED: LR 1,000 ML IV SCH (21:00)
[2016-12-06] MEDS: D5W/0.45% SODIUM CHLORIDE 1,000 ML IV SCH (22:45)
[2016-12-06] MEDS ORDERED: MORPHINE 1MG/ML IN 0.9% NACL 100ML IV BAG As Ordered ONE (23:21)
[2016-12-06] MEDS ORDERED: NALBUPHINE HCL 10 MG/ML AMP (J2300) IV PRN (23:45)
[2016-12-06] MEDS ORDERED: EPIDURAL/PCA KEYS XX PRN (23:45)
[2016-12-06] MEDS ORDERED: NALOXONE INJ 0.4 MG/1 ML VIAL (J2310) IV PRN (23:45)
[2016-12-07] VITALS (18 sets, daily range): BP systolic 97–156; BP diastolic 52–76
[2016-12-07 04:22] LABS: MEAN CORPUSCULAR HEMOGLOBIN 30.1 pg (27.0-33.0); MEAN CORPUSCULAR HGB CONC 32.3 g/dl (32.0-36.5); WHITE BLOOD COUNT 17.2 K/mm3 (4.0-10.0)
[2016-12-07 04:42] LABS: ANION GAP 7 MEQ/L (8-16); BLOOD UREA NITROGEN 21 MG/DL (7-18); CALCIUM LEVEL 7.8 MG/DL (8.5-10.1); CARBON DIOXIDE LEVEL 28 MEQ/L (21-32); CHLORIDE LEVEL 99 MEQ/L (98-107); CREATININE FOR GFR 1.15 MG/DL (0.70-1.30); GLOMERULAR FILTRATION RATE > 60.0 (>56); GLUCOSE, FASTING 145 MG/DL (70-105); POTASSIUM SERUM 4.2 MEQ/L (3.5-5.1); SODIUM LEVEL 134 MEQ/L (136-145)
[2016-12-07] MEDS: NYSTATIN 500,000 U/5 ML SUSP UDC SS SCH ×5 (05:23→23:53)
[2016-12-07] MEDS: SODIUM CHLORIDE 0.9% INJ 10 ML SYR IV SCH ×2 (05:24→17:12)
[2016-12-07] MEDS: MOM 30ML SUSPENSION UDC PO SCH ×2 (08:31→21:00)
[2016-12-07] MEDS: CARVedilol 3.125 MG TAB PO SCH ×2 (08:32→21:25)
[2016-12-07] MEDS: DULoxetine 30 MG CAP (CYMBALTA) PO SCH (08:32)
[2016-12-07] MEDS: PANTOPRAZOLE 40MG TAB (PROTONIX) PO SCH (08:32)
[2016-12-07] MEDS: DOCUSATE SODIUM 100 MG CAP PO SCH ×2 (08:32→21:23)
[2016-12-07] MEDS: amLODIPine 5 MG TAB PO SCH (08:32)
[2016-12-07] MEDS: SENOKOT S TAB PO SCH ×2 (08:32→21:23)
[2016-12-07] MEDS: GABAPENTIN 400 MG CAP PO SCH ×3 (08:33→21:24)
[2016-12-07] MEDS: cloNIDine 0.1 MG TAB PO SCH ×3 (08:33→21:24)
[2016-12-07] MEDS: HEPARIN DRIP 25,000 UNITS in APPROPRIATE DILUENT 1 EA IV SCH ×2 (10:10→19:16)
[2016-12-07] MEDS: D5W/0.45% SODIUM CHLORIDE 1,000 ML IV SCH ×2 (13:09→23:53)
[2016-12-07] MEDS ORDERED: MORPHINE 2 MG/ML 1ML SYRINGE IV ONE (18:30)
[2016-12-07] MEDS: ATORVASTATIN 20 MG TAB PO SCH (21:23)
[2016-12-07] MEDS: diazePAM 2 MG TAB PO SCH (21:30)
[2016-12-08] VITALS (14 sets, daily range): BP systolic 91–175; BP diastolic 58–80
[2016-12-08] MEDS: HEPARIN DRIP 25,000 UNITS in APPROPRIATE DILUENT 1 EA IV SCH ×3 (03:59→21:07)
[2016-12-08] MEDS: MORPHINE 1MG/ML IN 0.9% NACL 100ML IV BAG IV PRN (03:59)
[2016-12-08 04:58] LABS: MEAN CORPUSCULAR HEMOGLOBIN 28.6 pg (27.0-33.0); MEAN CORPUSCULAR HGB CONC 31.1 g/dl (32.0-36.5); MEAN CORPUSCULAR VOLUME 91.9 fl (80.0-96.0); RED CELL DISTRIBUTION WIDTH 14.4 % (11.5-14.5); WHITE BLOOD COUNT 21.5 K/mm3 (4.0-10.0)
[2016-12-08 05:19] LABS: ALBUMIN/GLOBULIN RATIO 0.54 (1.00-1.93); ALKALINE PHOSPHATASE 99 U/L (45-117); ALT/SGPT 36 U/L (12-78); ANION GAP 7 MEQ/L (8-16); AST/SGOT 33 U/L (15-37); BILIRUBIN,TOTAL 0.4 MG/DL (0.2-1.0); BLOOD UREA NITROGEN 15 MG/DL (7-18); CALCIUM LEVEL 7.5 MG/DL (8.5-10.1); CARBON DIOXIDE LEVEL 26 MEQ/L (21-32); CHLORIDE LEVEL 99 MEQ/L (98-107); GLOMERULAR FILTRATION RATE > 60.0 (>56); GLUCOSE, FASTING 113 MG/DL (70-105); POTASSIUM SERUM 4.3 MEQ/L (3.5-5.1); SODIUM LEVEL 132 MEQ/L (136-145); TOTAL PROTEIN 5.7 GM/DL (6.4-8.2)
[2016-12-08] MEDS: NYSTATIN 500,000 U/5 ML SUSP UDC SS SCH ×3 (05:39→17:39)
[2016-12-08] MEDS: SODIUM CHLORIDE 0.9% INJ 10 ML SYR IV SCH ×2 (05:40→17:40)
[2016-12-08] MEDS: MOM 30ML SUSPENSION UDC PO SCH ×2 (09:40→21:08)
[2016-12-08] MEDS: GABAPENTIN 400 MG CAP PO SCH ×3 (09:40→21:08)
[2016-12-08] MEDS: amLODIPine 5 MG TAB PO SCH (09:41)
[2016-12-08] MEDS: cloNIDine 0.1 MG TAB PO SCH ×3 (09:41→21:10)
[2016-12-08] MEDS: CARVedilol 3.125 MG TAB PO SCH ×2 (09:42→21:11)
[2016-12-08] MEDS: SENOKOT S TAB PO SCH ×2 (09:42→21:08)
[2016-12-08] MEDS: DOCUSATE SODIUM 100 MG CAP PO SCH ×2 (09:42→21:09)
[2016-12-08] MEDS: DULoxetine 30 MG CAP (CYMBALTA) PO SCH (09:42)
[2016-12-08] MEDS: PANTOPRAZOLE 40MG TAB (PROTONIX) PO SCH (09:42)
[2016-12-08] MEDS ORDERED: MORPHINE 10 MG/ML 1ML VIAL IV ONE (10:00)
[2016-12-08] MEDS: D5W/0.45% SODIUM CHLORIDE 1,000 ML IV SCH (12:54)
[2016-12-08] MEDS ORDERED: NITROGLYCERIN 2% OINT 1 GM *U/D* PKT TOP ONE (21:00)
[2016-12-08] MEDS: diazePAM 2 MG TAB PO SCH (21:08)
[2016-12-08] MEDS: zolPIDEM TARTRATE 10MG TAB PO PRN (21:08)
[2016-12-08] MEDS: ATORVASTATIN 20 MG TAB PO SCH (21:10)
[2016-12-09] VITALS (8 sets, daily range): BP systolic 110–163; BP diastolic 59–92
[2016-12-09] MEDS: NYSTATIN 500,000 U/5 ML SUSP UDC SS SCH ×5 (00:38→23:42)
[2016-12-09] MEDS: D5W/0.45% SODIUM CHLORIDE 1,000 ML IV SCH ×2 (00:38→17:39)
[2016-12-09] MEDS: NITROGLYCERIN 2% OINT 1 GM *U/D* PKT TOP PRN ×2 (00:48→04:54)
[2016-12-09 04:53] LABS: MEAN CORPUSCULAR HEMOGLOBIN 30.8 pg (27.0-33.0); MEAN CORPUSCULAR HGB CONC 33.9 g/dl (32.0-36.5); MEAN CORPUSCULAR VOLUME 90.8 fl (80.0-96.0); RED CELL DISTRIBUTION WIDTH 14.7 % (11.5-14.5); WHITE BLOOD COUNT 19.5 K/mm3 (4.0-10.0)
[2016-12-09] MEDS: HEPARIN DRIP 25,000 UNITS in APPROPRIATE DILUENT 1 EA IV SCH ×3 (05:07→23:39)
[2016-12-09] MEDS: SODIUM CHLORIDE 0.9% INJ 10 ML SYR IV SCH ×2 (05:07→23:43)
[2016-12-09 05:16] LABS: POTASSIUM SERUM 4.4 MEQ/L (3.5-5.1); SODIUM LEVEL 133 MEQ/L (136-145)
[2016-12-09 05:43] LABS: ALKALINE PHOSPHATASE 127 U/L (45-117); ALT/SGPT 50 U/L (12-78); ANION GAP 7 MEQ/L (8-16); AST/SGOT 49 U/L (15-37); BILIRUBIN,TOTAL 0.4 MG/DL (0.2-1.0); BLOOD UREA NITROGEN 11 MG/DL (7-18); CARBON DIOXIDE LEVEL 26 MEQ/L (21-32); CHLORIDE LEVEL 100 MEQ/L (98-107); CREATININE FOR GFR 0.86 MG/DL (0.70-1.30); GLOMERULAR FILTRATION RATE > 60.0 (>56); GLUCOSE, FASTING 120 MG/DL (70-105)
[2016-12-09] MEDS: MOM 30ML SUSPENSION UDC PO SCH ×2 (09:03→21:00)
[2016-12-09] MEDS: PANTOPRAZOLE 40MG TAB (PROTONIX) PO SCH (09:03)
[2016-12-09] MEDS: cloNIDine 0.1 MG TAB PO SCH ×3 (09:04→23:40)
[2016-12-09] MEDS: GABAPENTIN 400 MG CAP PO SCH ×3 (09:04→23:41)
[2016-12-09] MEDS: DULoxetine 30 MG CAP (CYMBALTA) PO SCH (09:05)
[2016-12-09] MEDS: amLODIPine 5 MG TAB PO SCH (09:05)
[2016-12-09] MEDS: DOCUSATE SODIUM 100 MG CAP PO SCH ×2 (09:05→23:40)
[2016-12-09] MEDS: SENOKOT S TAB PO SCH ×2 (09:05→23:41)
[2016-12-09] MEDS: CARVedilol 3.125 MG TAB PO SCH ×2 (09:06→23:41)
[2016-12-09] MEDS: MORPHINE 1MG/ML IN 0.9% NACL 100ML IV BAG IV PRN (13:54)
[2016-12-09] MEDS ORDERED: fentaNYL 250 MCG/5 ML INJECTION (J3010) As Ordered ONE (19:05)
[2016-12-09] MEDS ORDERED: MIDAZOLAM INJ 2 MG/2 ML VIAL (J2250) As Ordered ONE ×2 (19:06→20:50)
--- NOTE | 2016-12-09 19:20 | IPN ---
DATE: 12/09/2016 SUBJECTIVE: Patient still has continued extensive and extreme pain in his right forefoot and toes. OBJECTIVE: Afebrile. Vital signs: Stable. Heart: Regular rate and rhythm. Lungs: Clear to auscultation. Abdomen: Soft, non-tender with no palpable pulsatile masses. Extremities: Well perfused except for the distal right lower extremity in the forefoot and toe region. ASSESSMENT: Patient is a 56-year-old male with peripheral arterial disease, aortoiliac occlusive disease, femoral popliteal arterial occlusive disease and tibial peroneal arterial occlusive disease who has undergone multiple bypasses and attempts at revascularization of the right lower extremity. The patient had continued extreme pain in the right foot and at this point there are no further revascularization options and the patient has agreed to proceed with a right transmetatarsal amputation possible right below knee amputation. Risks, benefits and alternatives of the treatment options were discussed with the patient. Alternative treatment options included but were not limited to no intervention. Risks included but were not limited to infection, bleeding, renal failure requiring hemodialysis, possible need for further open surgical intervention, failure of the transmetatarsal amputation wound to heal, inability to perform the transmetatarsal amputation with good result with conversion to a right below knee amputation intraoperatively, cerebral vascular accident, myocardial infarction, pulmonary embolus, deep vein thrombosis, loss of limb, loss of life and poor outcome. Patient understands and excepts these risks and consents to proceed. Patient will undergo a right transmetatarsal amputation, possible right below knee amputation today.
[2016-12-09] MEDS ORDERED: ROCURONIUM BROMIDE 50 MG/5 ML VIAL/SYRINGE As Ordered ONE (19:26)
[2016-12-09] MEDS ORDERED: PROPOFOL 200 MG/20 ML VIAL As Ordered ONE (19:26)
[2016-12-09] MEDS ORDERED: LIDOCAINE 2% INJ 100 MG/5 ML SDV (FOR ANES.) As Ordered ONE (19:26)
[2016-12-09] MEDS ORDERED: GLYCOPYRROLATE INJ 0.2 MG/ML 2 ML VIAL As Ordered ONE (19:27)
[2016-12-09] MEDS ORDERED: NEOSTIGMINE 1MG/ML 5 ML SYRINGE (J2710) As Ordered ONE (19:27)
[2016-12-09] MEDS ORDERED: PHENYLephrine HCL 500 MCG/5 ML (100MCG/ML) SYRINGE (J2370) As Ordered ONE (19:27)
[2016-12-09] MEDS ORDERED: ONDANSETRON 4MG/2ML VIAL (J2405) As Ordered ONE (19:27)
[2016-12-09] MEDS ORDERED: ceFAZolin 1GM INJ (J0690) As Ordered ONE (19:34)
[2016-12-09] MEDS ORDERED: BACITRACIN OINT 30GM As Ordered ONE (20:19)
[2016-12-09] MEDS ORDERED: MORPHINE 10 MG/ML 1ML VIAL As Ordered ONE (20:35)
[2016-12-09] MEDS: MORPHINE 2 MG/ML 1ML SYRINGE IV PRN ×5 (20:40→21:05)
[2016-12-09] MEDS ORDERED: fentaNYL 100 MCG/2 ML INJECTION (J3010) As Ordered ONE (20:51)
[2016-12-09] MEDS: MIDAZOLAM INJ 2 MG/2 ML VIAL (J2250) IV PRN ×2 (20:55→21:00)
[2016-12-09] MEDS ORDERED: LR 1,000 ML IV SCH (21:00)
[2016-12-09] MEDS ORDERED: ONDANSETRON 4MG/2ML VIAL (J2405) IV PRN (21:00)
[2016-12-09 21:09] LABS: MEAN CORPUSCULAR HEMOGLOBIN 28.7 pg (27.0-33.0); MEAN CORPUSCULAR HGB CONC 31.4 g/dl (32.0-36.5); MEAN CORPUSCULAR VOLUME 91.6 fl (80.0-96.0); RED CELL DISTRIBUTION WIDTH 14.5 % (11.5-14.5); WHITE BLOOD COUNT 25.3 K/mm3 (4.0-10.0)
[2016-12-09] MEDS: fentaNYL 100 MCG/2 ML INJECTION (J3010) IV PRN ×4 (21:15→21:43)
[2016-12-09] MEDS: diazePAM 2 MG TAB PO SCH (23:40)
[2016-12-09] MEDS: ATORVASTATIN 20 MG TAB PO SCH (23:41)
[2016-12-10] VITALS: BP 128/68
[2016-12-10 01:00] VITALS: BP 132/78
[2016-12-10] MEDS: zolPIDEM TARTRATE 10MG TAB PO PRN (01:05)
[2016-12-10 02:00] VITALS: BP 124/64
[2016-12-10 06:00] VITALS: BP 148/65
[2016-12-10] MEDS: NYSTATIN 500,000 U/5 ML SUSP UDC SS SCH ×4 (06:16→21:38)
[2016-12-10] MEDS: SODIUM CHLORIDE 0.9% INJ 10 ML SYR IV SCH ×2 (06:16→17:19)
[2016-12-10 06:49] LABS: MEAN CORPUSCULAR HEMOGLOBIN 30.3 pg (27.0-33.0); MEAN CORPUSCULAR HGB CONC 32.9 g/dl (32.0-36.5); MEAN CORPUSCULAR VOLUME 92.1 fl (80.0-96.0); RED CELL DISTRIBUTION WIDTH 14.4 % (11.5-14.5); WHITE BLOOD COUNT 16.7 K/mm3 (4.0-10.0)
[2016-12-10 07:49] LABS: ANION GAP 8 MEQ/L (8-16); BLOOD UREA NITROGEN 11 MG/DL (7-18); CALCIUM LEVEL 8.2 MG/DL (8.5-10.1); CARBON DIOXIDE LEVEL 25 MEQ/L (21-32); CHLORIDE LEVEL 101 MEQ/L (98-107); GLOMERULAR FILTRATION RATE > 60.0 (>56); GLUCOSE, FASTING 104 MG/DL (70-105); POTASSIUM SERUM 4.5 MEQ/L (3.5-5.1); SODIUM LEVEL 134 MEQ/L (136-145)
[2016-12-10] MEDS: PANTOPRAZOLE 40MG TAB (PROTONIX) PO SCH (09:17)
[2016-12-10] MEDS: DOCUSATE SODIUM 100 MG CAP PO SCH ×2 (09:17→21:33)
[2016-12-10] MEDS: DULoxetine 30 MG CAP (CYMBALTA) PO SCH (09:17)
[2016-12-10] MEDS: GABAPENTIN 400 MG CAP PO SCH ×3 (09:17→21:34)
[2016-12-10] MEDS: amLODIPine 5 MG TAB PO SCH (09:17)
[2016-12-10] MEDS: MOM 30ML SUSPENSION UDC PO SCH ×2 (09:17→21:33)
[2016-12-10] MEDS: HEPARIN DRIP 25,000 UNITS in APPROPRIATE DILUENT 1 EA IV SCH ×2 (09:17→17:18)
[2016-12-10] MEDS: SENOKOT S TAB PO SCH ×2 (09:18→21:33)
[2016-12-10] MEDS: cloNIDine 0.1 MG TAB PO SCH ×3 (09:18→21:34)
[2016-12-10] MEDS: CARVedilol 3.125 MG TAB PO SCH ×2 (09:18→21:33)
[2016-12-10 14:00] VITALS: BP 133/62
[2016-12-10] MEDS: MORPHINE 1MG/ML IN 0.9% NACL 100ML IV BAG IV PRN (21:14)
[2016-12-10] MEDS: diazePAM 2 MG TAB PO SCH (21:33)
[2016-12-10] MEDS: ATORVASTATIN 20 MG TAB PO SCH (21:33)
[2016-12-10 22:00] VITALS: BP 135/70
[2016-12-11 02:00] VITALS: BP 130/64
[2016-12-11] MEDS: HEPARIN DRIP 25,000 UNITS in APPROPRIATE DILUENT 1 EA IV SCH ×3 (02:02→19:00)
[2016-12-11] MEDS: SODIUM CHLORIDE 0.9% INJ 10 ML SYR IV SCH ×2 (05:51→17:49)
[2016-12-11 06:00] VITALS: BP 142/77
[2016-12-11] MEDS: NYSTATIN 500,000 U/5 ML SUSP UDC SS SCH ×3 (06:06→17:50)
[2016-12-11 09:00] VITALS: BP 137/76
[2016-12-11 10:00] VITALS: BP 137/73
[2016-12-11] MEDS: DULoxetine 30 MG CAP (CYMBALTA) PO SCH (10:46)
[2016-12-11] MEDS: PANTOPRAZOLE 40MG TAB (PROTONIX) PO SCH (10:46)
[2016-12-11] MEDS: amLODIPine 5 MG TAB PO SCH (10:46)
[2016-12-11] MEDS: cloNIDine 0.1 MG TAB PO SCH ×3 (10:47→22:05)
[2016-12-11] MEDS: CARVedilol 3.125 MG TAB PO SCH ×2 (10:47→21:59)
[2016-12-11] MEDS: GABAPENTIN 400 MG CAP PO SCH ×3 (10:47→21:59)
[2016-12-11] MEDS: DOCUSATE SODIUM 100 MG CAP PO SCH ×2 (10:49→21:59)
[2016-12-11] MEDS: SENOKOT S TAB PO SCH ×2 (10:49→22:00)
[2016-12-11] MEDS: MOM 30ML SUSPENSION UDC PO SCH ×2 (10:49→22:00)
[2016-12-11] MEDS: clonazePAM 0.5 MG TAB PO SCH ×2 (10:53→22:00)
--- NOTE | 2016-12-11 12:05 | CR ---
DATE OF CONSULTATION: 12/11/2016 CONSULTATION REPORT FOR: Dr. King HISTORY OF PRESENT ILLNESS: 56-year-old male who was admitted on 11/17/2016 with increased pain and loss of circulation in his right lower extremity. He has underwent several angiograms and revascularization surgery of the right graft. He has a severe iliac and atherosclerotic arterial occlusive disease in his superficial, femoral, popliteal and tibioperoneal system. The graft subsequently occluded. He had poor distal run off and femoral peroneal artery bypass graft thrombosed in less than 24 hours. He underwent right below the knee amputation after attempted right metatarsal amputation. Was deemed to be unable to be successfully healed. He is now recuperating post surgery. I was called to evaluate the patient since he made suicidal threats to his vascular surgeon, Dr. King, on 12/10/2016. During the interview today, the patient is labile, tearful and anxious. He states that he has not been able to sleep almost at all and is constantly worried. He cries when he talks about his situation. However, he denies any feelings of depression prior to the amputation. He reports in the past some mood fluctuations but he never was evaluated by any psychiatrist nor the patient that he needed to go to the doctor. The patient has no prior psychiatric history. During the interview today, the patient says that the pain fluctuates between 7 to 8 out of 10. The patient also reports that he had a recent breakup of a relationship with his girlfriend. During the interview, the patient is able to contract for safety and says that he does not feel he could harm himself. However, the patient is labile, anxious and is sleep deprived. During the interview, there is no evidence of psychotic symptoms. No auditory or visual hallucinations or delusions. PAST MEDICAL HISTORY: 1. Status post CVA. 2. Status post heart surgery. 3. Status post colon cancer resection. 4. Status post amputation of below the knee right leg. PAST PSYCHIATRIC HISTORY: The patient has no prior psychiatric problems. The patient has reported some mood fluctuation but he did not think that it was severe enough to go to the doctor. FAMILY HISTORY: The patient denies any psychiatric family problems. SUBSTANCE ABUSE HISTORY: The patient denies any current or past problems with drugs or alcohol. The patient states that when he was a teenager he experimented with marijuana but it never was a problem. SOCIAL HISTORY: The patient is single with no children. The patient is living with his mother and his sister. He is now on social security disability. 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 His family is supportive. PSYCHIATRIC REVIEW OF SYSTEMS: Depression and other mood disorder. The patient reports sleep problems/insomnia and has low energy and psychomotor retardation; however, he is being treated with a significant amount of pain killers. Substance abuse disorder: The patient's answers are negative to CAGE questionnaire. Anxiety disorder: The patient feels anxious. No panic or agoraphobia. No obsessive compulsive disorder symptoms. Denies washing hands repeatedly. Denies checking things over and over. Somatization disorder: The patient reports significant pain for his right leg, but gastrointestinal and sexual symptoms are negative. Eating disorder: Dieting, use of laxatives, binges are negative. Dementia and cognitive disorder: Screening for short and alf memory impairment are positive since the patient had traumatic brain injury, but the symptoms are mild. The patient is oriented times four. General information is within normal limits. Psychotic disorder: No evidence of delusions. No paranoia. No grandiosity or quaker preoccupation. No hallucinations. No looseness of associations. LABORATORY DATA: CBC on 12/10/2016 showed white blood cells of 16.7, RBC of 2.71, hemoglobin of 8.2, hematocrit of 24.9. This is after surgery. BMP on 12/10/2016 showed a sodium of 134, rest within normal limits. MENTAL STATUS EXAMINATION: The patient is dressed in hospital gown. The patient is cooperative. Speech is clear, somewhat soft. Has fair eye contact. Mood is anxious and depressed after his surgery. Affect is labile, at times tearful. The patient is oriented to time, place, person and situation. Maintains attention and concentration fairly. Thought processes are coherent, logical, and goal directed. The patient does not have auditory or visual hallucinations. The patient does not have paranoid, persecutory, somatic, grandiose or quaker delusions. The patient is denying suicidal or homicidal ideation during the interview. Insight and judgment are fair. DIAGNOSES: AXIS I: Adjustment disorder with depressed and anxious mood. AXIS II: Deferred. AXIS III: Status post right below the knee amputation. RECOMMENDATIONS: 1. Suicidal ideation. The patient is denying suicidal ideation during the interview, however, the patient is labile, tearful, reports feeling depressed and anxious. The patient also is somewhat irritable because of his inability to sleep and also inability to relax because of the pain. My recommendation will be to keep the one-to-one at this time. 2. Antidepressant medication. At this point, the patient is going through an adjustment period after surgery. He is already taking Cymbalta. I would not start at this point another medication for depression. He will need to have followup as an outpatient for counseling. 3. Anxiety/insomnia. The patient has been sleep deprived because of pain and medical problems. I discussed this issue with Dr. King. I will start the patient on trazodone 100 mg by mouth at night, in addition to Ambien 10 mg that he is already taking as needed for insomnia. Also, to decrease the level of anxiety, I will start the patient on Klonopin 0.5 mg by mouth twice a day. MTDD
[2016-12-11 14:00] VITALS: BP 149/69
[2016-12-11] MEDS: ATORVASTATIN 20 MG TAB PO SCH (21:59)
[2016-12-11 22:00] VITALS: BP 127/62
[2016-12-11] MEDS: zolPIDEM TARTRATE 10MG TAB PO PRN (22:00)
[2016-12-11] MEDS: traZODone 100 MG TAB PO SCH (22:00)
[2016-12-11] MEDS: oxyCODONE 15 MG CR TAB PO SCH (22:05)
[2016-12-11] MEDS: oxyCODONE 5MG TAB PO PRN (23:02)
[2016-12-12 00:28] LABS: INR 1.12
[2016-12-12] MEDS: HEPARIN DRIP 25,000 UNITS in APPROPRIATE DILUENT 1 EA IV SCH ×3 (03:29→21:28)
[2016-12-12] MEDS: SODIUM CHLORIDE 0.9% INJ 10 ML SYR IV SCH ×2 (05:53→17:20)
[2016-12-12 06:00] VITALS: BP 122/69
[2016-12-12] MEDS: oxyCODONE 5MG TAB PO PRN ×4 (06:03→22:38)
[2016-12-12] MEDS ORDERED: MORPHINE 10 MG/ML 1ML VIAL IV ONE ×2 (06:45→18:45)
[2016-12-12] MEDS: GABAPENTIN 400 MG CAP PO SCH ×3 (08:53→21:28)
[2016-12-12] MEDS: oxyCODONE 15 MG CR TAB PO SCH ×2 (08:55→21:30)
[2016-12-12] MEDS: PANTOPRAZOLE 40MG TAB (PROTONIX) PO SCH (08:56)
[2016-12-12] MEDS: amLODIPine 5 MG TAB PO SCH (08:56)
[2016-12-12] MEDS: CARVedilol 3.125 MG TAB PO SCH ×2 (08:57→21:29)
[2016-12-12] MEDS: cloNIDine 0.1 MG TAB PO SCH ×3 (08:58→21:30)
[2016-12-12] MEDS: clonazePAM 0.5 MG TAB PO SCH ×2 (09:00→21:28)
[2016-12-12] MEDS: DULoxetine 30 MG CAP (CYMBALTA) PO SCH (09:00)
[2016-12-12] MEDS: MOM 30ML SUSPENSION UDC PO SCH ×2 (09:01→21:28)
[2016-12-12] MEDS: DOCUSATE SODIUM 100 MG CAP PO SCH ×2 (09:02→21:28)
[2016-12-12] MEDS: SENOKOT S TAB PO SCH ×2 (09:02→21:28)
[2016-12-12 14:00] VITALS: BP 126/64
--- NOTE | 2016-12-12 16:31 | IPN ---
DATE: 12/12/2016 A 56-year-old male seen yesterday in consultation for suicidal ideation, depression, high anxiety, insomnia. SUBJECTIVE: "I could not sleep well last night because of the pain." OBJECTIVE: Patient says that he is not sure that the medication is going to help. Says that his pain treatment has been changed and last night, could not sleep because of the pain. Says that for the last two hours, he has been more comfortable with the new treatment. He is hoping to be able to sleep tonight. During the interview, patient continues depressed, labile, anxious, and very worried about his medical condition. Patient is able to contract for safety; however, he could be unpredictable because of the above. There is no evidence of psychotic symptoms, no auditory or visual hallucinations or delusions. Patient has denied side effects from trazodone or Klonopin. MENTAL STATUS EXAMINATION: Patient is dressed in [facility]. Patient is cooperative. Poor eye contact. His speech is soft and monotone. Mood is depressed and anxious. Affect is restricted. No evidence of delusions or hallucinations. Memory, attention and concentration are fair. Patient continues to have intermittent suicidal ideation. Insight and judgment is limited. ASSESSMENT: 1. Depression. 2. High anxiety. 3. Insomnia. PLAN: 1. Continue with trazodone 100 mg by mouth at bedtime. 2. Continue with Ambien 10 mg by mouth at bedtime as needed for insomnia. 3. Continue with Klonopin 0.5 mg by mouth twice a day.
[2016-12-12 17:44] LABS: INR 1.09
[2016-12-12] MEDS: WARFARIN SOD 3 MG TAB PO SCH (18:41)
[2016-12-12] MEDS: ATORVASTATIN 20 MG TAB PO SCH (21:28)
[2016-12-12] MEDS: traZODone 100 MG TAB PO SCH (21:30)
[2016-12-12 22:00] VITALS: BP 180/92
[2016-12-13] MEDS: HEPARIN DRIP 25,000 UNITS in APPROPRIATE DILUENT 1 EA IV SCH ×3 (03:34→15:19)
[2016-12-13] MEDS: SODIUM CHLORIDE 0.9% INJ 10 ML SYR IV SCH ×2 (05:52→17:10)
[2016-12-13 06:00] VITALS: BP 107/65
[2016-12-13] MEDS: oxyCODONE 5MG TAB PO PRN ×4 (06:50→19:24)
[2016-12-13] MEDS: GABAPENTIN 400 MG CAP PO SCH ×3 (08:36→20:12)
[2016-12-13] MEDS: cloNIDine 0.1 MG TAB PO SCH ×3 (08:37→20:14)
[2016-12-13] MEDS: oxyCODONE 15 MG CR TAB PO SCH ×2 (08:37→20:12)
[2016-12-13] MEDS: CARVedilol 3.125 MG TAB PO SCH ×2 (08:38→20:13)
[2016-12-13] MEDS: DOCUSATE SODIUM 100 MG CAP PO SCH ×2 (08:38→20:16)
[2016-12-13] MEDS: MOM 30ML SUSPENSION UDC PO SCH ×2 (08:38→20:16)
[2016-12-13] MEDS: clonazePAM 0.5 MG TAB PO SCH ×2 (08:38→20:11)
[2016-12-13] MEDS: PANTOPRAZOLE 40MG TAB (PROTONIX) PO SCH (08:38)
[2016-12-13] MEDS: amLODIPine 5 MG TAB PO SCH (08:38)
[2016-12-13] MEDS: DULoxetine 30 MG CAP (CYMBALTA) PO SCH (08:38)
[2016-12-13] MEDS: SENOKOT S TAB PO SCH ×2 (08:39→20:16)
[2016-12-13] MEDS: MORPHINE 10 MG/ML 1ML VIAL IV PRN ×3 (08:45→22:08)
[2016-12-13 14:00] VITALS: BP 125/67
[2016-12-13 14:46] LABS: MEAN CORPUSCULAR HEMOGLOBIN 28.8 pg (27.0-33.0); MEAN CORPUSCULAR HGB CONC 31.4 g/dl (32.0-36.5); MEAN CORPUSCULAR VOLUME 91.7 fl (80.0-96.0); RED CELL DISTRIBUTION WIDTH 14.2 % (11.5-14.5); WHITE BLOOD COUNT 14.6 K/mm3 (4.0-10.0)
[2016-12-13 14:48] LABS: INR 1.14
[2016-12-13] MEDS: WARFARIN SOD 3 MG TAB PO SCH (17:29)
[2016-12-13] MEDS: traZODone 100 MG TAB PO SCH (20:13)
[2016-12-13] MEDS: ATORVASTATIN 20 MG TAB PO SCH (20:14)
[2016-12-13 22:00] VITALS: BP 123/72
[2016-12-14] MEDS: HEPARIN DRIP 25,000 UNITS in APPROPRIATE DILUENT 1 EA IV SCH ×3 (00:53→19:56)
[2016-12-14] MEDS: oxyCODONE 5MG TAB PO PRN ×4 (02:07→18:11)
[2016-12-14 03:52] LABS: MEAN CORPUSCULAR HEMOGLOBIN 28.9 pg (27.0-33.0); MEAN CORPUSCULAR HGB CONC 31.2 g/dl (32.0-36.5); MEAN CORPUSCULAR VOLUME 92.6 fl (80.0-96.0); RED CELL DISTRIBUTION WIDTH 14.7 % (11.5-14.5); WHITE BLOOD COUNT 10.9 K/mm3 (4.0-10.0)
[2016-12-14 03:59] LABS: INR 1.17
[2016-12-14 04:39] LABS: ANION GAP 10 MEQ/L (8-16); BLOOD UREA NITROGEN 17 MG/DL (7-18); CALCIUM LEVEL 8.6 MG/DL (8.5-10.1); CARBON DIOXIDE LEVEL 25 MEQ/L (21-32); CHLORIDE LEVEL 101 MEQ/L (98-107); CREATININE FOR GFR 1.08 MG/DL (0.70-1.30); GLOMERULAR FILTRATION RATE > 60.0 (>56); GLUCOSE, FASTING 108 MG/DL (70-105); POTASSIUM SERUM 4.2 MEQ/L (3.5-5.1); SODIUM LEVEL 136 MEQ/L (136-145)
[2016-12-14] MEDS: SODIUM CHLORIDE 0.9% INJ 10 ML SYR IV SCH ×2 (05:44→17:03)
[2016-12-14 06:17] VITALS: BP 132/72
[2016-12-14] MEDS: MORPHINE 10 MG/ML 1ML VIAL IV PRN ×3 (07:51→15:20)
[2016-12-14] MEDS: MOM 30ML SUSPENSION UDC PO SCH ×3 (09:00→09:35)
[2016-12-14] MEDS: clonazePAM 0.5 MG TAB PO SCH ×2 (09:29→20:22)
[2016-12-14] MEDS: amLODIPine 5 MG TAB PO SCH (09:29)
[2016-12-14] MEDS: PANTOPRAZOLE 40MG TAB (PROTONIX) PO SCH (09:29)
[2016-12-14] MEDS: oxyCODONE 15 MG CR TAB PO SCH (09:29)
[2016-12-14] MEDS: DULoxetine 30 MG CAP (CYMBALTA) PO SCH (09:29)
[2016-12-14] MEDS: SENOKOT S TAB PO SCH ×2 (09:30→20:21)
[2016-12-14] MEDS: GABAPENTIN 400 MG CAP PO SCH ×3 (09:30→20:21)
[2016-12-14] MEDS: DOCUSATE SODIUM 100 MG CAP PO SCH ×2 (09:30→20:23)
[2016-12-14] MEDS: cloNIDine 0.1 MG TAB PO SCH ×3 (09:30→20:22)
[2016-12-14] MEDS: CARVedilol 3.125 MG TAB PO SCH ×2 (09:30→20:25)
[2016-12-14 14:00] VITALS: BP 132/63
[2016-12-14] MEDS ORDERED: HEPARIN SOD (PORCINE) 5000 UNITS/ML VIAL IV PRN (15:45)
[2016-12-14] MEDS ORDERED: WARFARIN SOD 7.5 MG TAB PO SCH (17:00)
[2016-12-14] MEDS: ATORVASTATIN 20 MG TAB PO SCH (20:19)
[2016-12-14] MEDS: oxyCODONE 20 MG CR TAB PO SCH (20:20)
[2016-12-14] MEDS: traZODone 100 MG TAB PO SCH (20:21)
[2016-12-14 22:00] VITALS: BP 119/69
[2016-12-15] MEDS: oxyCODONE 5MG TAB PO PRN ×3 (01:59→11:10)
[2016-12-15 02:44] LABS: MEAN CORPUSCULAR HEMOGLOBIN 28.7 pg (27.0-33.0); MEAN CORPUSCULAR HGB CONC 31.5 g/dl (32.0-36.5); MEAN CORPUSCULAR VOLUME 91.2 fl (80.0-96.0); RED CELL DISTRIBUTION WIDTH 14.3 % (11.5-14.5); WHITE BLOOD COUNT 10.6 K/mm3 (4.0-10.0)
[2016-12-15 02:50] LABS: INR 1.15
[2016-12-15] MEDS: MORPHINE 10 MG/ML 1ML VIAL IV PRN ×5 (04:04→16:22)
[2016-12-15] MEDS: SODIUM CHLORIDE 0.9% INJ 10 ML SYR IV SCH (04:05)
[2016-12-15 06:00] VITALS: BP 115/63
[2016-12-15] MEDS: HEPARIN DRIP 25,000 UNITS in APPROPRIATE DILUENT 1 EA IV SCH ×2 (06:14→15:39)
--- NOTE | 2016-12-15 06:27 | IPN ---
DATE: 12/14/2016 56-year-old male seen in consultation on 12/11/2016, for depression, suicidal thoughts, insomnia, high anxiety, and pain to be evaluated for suicidal ideation, the need to continue one-to-one observation, and psychotropic medication management. The patient is status post below the knee amputation. SUBJECTIVE: "I was able to sleep better last night." OBJECTIVE: The patient gets tearful when talking about going home. He would like to be discharged soon. The patient says that last night he slept more than 10 hours which is very positive compared to the amount of sleep he was getting previously. The patient says that he would like to cooperate more with physical therapy, he would like to do all the work, and then be able to be discharged home soon. However, he says that the amount of pain is preventing him from doing so. Patient continues somewhat labile. During the interview, he denied suicidal thoughts, but again since he is still labile and tearful, he is somewhat unpredictable. There is no evidence of psychotic symptoms, no auditory or visual hallucinations or delusions. His speech is somewhat slurred, probably secondary to the amount of pain medication he is getting and the fact that he is status post CVA. He is very cooperative and motivated for treatment. We discussed the treatment plan. MENTAL STATUS EXAMINATION: Patient is dressed in hospital gown. Patient is cooperative. Speech is somewhat slurred. Mood is anxious. Affect is labile. No delusions or hallucinations. Memory, attention, and concentration are fair. Patient is able to contract for safety. Denies suicidal or homicidal ideation during the interview. Insight and judgment is limited. ASSESSMENT: 1. Depression/suicidal ideation. 2. High anxiety. 3. Insomnia. PLAN: 1. Continue with trazodone 100 mg by mouth nightly which is effective along with the Ambien. 2. Continue with Ambien 10 mg by mouth nightly as needed for insomnia. 3. Continue with Klonopin 0.5 mg by mouth twice a day.
[2016-12-15] MEDS: amLODIPine 5 MG TAB PO SCH (08:19)
[2016-12-15] MEDS: CARVedilol 3.125 MG TAB PO SCH (08:19)
[2016-12-15] MEDS: clonazePAM 0.5 MG TAB PO SCH (08:19)
[2016-12-15] MEDS: oxyCODONE 20 MG CR TAB PO SCH (08:19)
[2016-12-15] MEDS: DOCUSATE SODIUM 100 MG CAP PO SCH (08:20)
[2016-12-15] MEDS: PANTOPRAZOLE 40MG TAB (PROTONIX) PO SCH (08:20)
[2016-12-15] MEDS: GABAPENTIN 400 MG CAP PO SCH ×2 (08:20→15:37)
[2016-12-15] MEDS: cloNIDine 0.1 MG TAB PO SCH ×2 (08:20→15:38)
[2016-12-15] MEDS: SENOKOT S TAB PO SCH (08:20)
[2016-12-15] MEDS: DULoxetine 30 MG CAP (CYMBALTA) PO SCH (08:20)
[2016-12-15] MEDS: MOM 30ML SUSPENSION UDC PO SCH (08:21)
[2016-12-15 14:00] VITALS: BP 140/86
[2016-12-15] MEDS ORDERED: OXYC20TA40 PO (14:04)
[2016-12-15] MEDS ORDERED: TRAZ10TA PO (14:04)
[2016-12-15] MEDS ORDERED: OXYCO5TA PO (14:04)
[2016-12-15] MEDS ORDERED: CLON0.5T PO (14:04)
[2016-12-15] MEDS ORDERED: COUM7.5T PO (14:04)
--- NOTE | 2016-12-15 15:30 | RO ---
DATE OF PROCEDURE: 12/09/2016 PREPROCEDURE DIAGNOSIS: Right lower extremity ischemia and rest pain. POSTPROCEDURE DIAGNOSIS: Right lower extremity ischemia and rest pain. SURGEON: Misti King MD DROP HAMMER OPERATOR HELPER: None. PROCEDURE: Attempted right transmetatarsal amputation with conversion to a right below knee amputation. INDICATION: The patient is a 56-year-old male with significant aortoiliac arterial occlusive disease, as well as femoral, popliteal and tibial peroneal occlusive disease. The patient has undergone angioplasty and stenting of the right common and external iliac arteries, as well as bypass grafting multiple times of the right lower extremity. The patient most recently was admitted with thrombosis of his right femoral to below knee popliteal artery bypass graft and underwent attempted thrombolysis without success and required repeat bypass grafting, which thrombosed due to severe tibial, peroneal arterial occlusive disease with no outflow. The patient now has severe rest pain and ischemia of the toes and has opted to undergo a transmetatarsal amputation with possible below knee amputation. Risks, benefits and alternative treatment options were discussed with the patient. Alternative treatment options included but were not limited to, no intervention. Risks included but were not limited to infection, bleeding, renal failure requiring hemodialysis, possible need for a higher level of amputation, cerebrovascular accident, myocardial infarction, pulmonary embolus, deep vein thrombosis (DVT), loss of limb, loss of life and poor outcome. The patient understands and accepts these risks and consents to proceed. Anesthesia was general endotracheal. Estimated blood loss 200 mL. IV fluids 600 mL. SPECIMEN: Right lower extremity. COMPLICATIONS: None. DRAINS: None. IMPLANTS: None. PROCEDURE: The patient was taken to the operating room and placed supine on the operating room table. The right lower extremity was prepped and draped in a standard surgical fashion. An incision was made in the right foot to create a right transmetatarsal amputation and the tissue was noted to be devoid of blood flow and the thought was that this would never heal and the patient would eventually breakdown his transmetatarsal amputation and proceed to a right below knee amputation. The options discussed with the patient prior to the surgery were that if the right transmetatarsal amputation did not have a possibility to heal that we would convert to a right below knee amputation during the procedure. The right below the knee amputation was then performed with a posterior flap created. The bone was transected with the fibula being transected 2 cm shorter than the tibia. All blood vessels were identified and ligated proximally, distally and transected. The muscle appeared viable. Once it was noted that the muscle was viable, the flap was closed using #2-0 Vicryl to approximate the posterior flap to the anterior flap in an interrupted fashion. The skin was then closed with darrion. Dressings were applied. The patient tolerated the procedure well. All instruments, sponge and needle counts were correct at the end of the case. There were no complications. Dr. King was present for and directed the entire case. The patient was transferred to the recovery room, awake, alert, extubated, and in stable condition.
[2016-12-15 15:38] VITALS: BP 140/86
[2016-12-15] MEDS ORDERED: HEPARIN DRIP 25,000 UNITS in APPROPRIATE DILUENT 1 EA IV SCH ×2 (16:15)
--- NOTE | 2016-12-22 07:44 | RO ---
DATE OF PROCEDURE: 11/17/2016 PREPROCEDURE DIAGNOSIS: Right lower extremity ischemia, thrombosed right femoral to popliteal artery bypass graft. POSTPROCEDURE DIAGNOSIS: Right lower extremity ischemia, thrombosed right femoral to popliteal artery bypass graft. PROCEDURE: Aortogram, iliofemoral angiogram, selective right common femoral artery catheter placement with right lower extremity angiogram, selective right superficial femoral artery catheter placement with right lower extremity angiogram, selective right popliteal artery catheter placement with right lower extremity angiogram, right common femoral artery angioplasty with 5 x 40 Richmond balloon, right superficial femoral artery angioplasty with 5 x 40 [place] balloon, placement of a fusion catheter with initiation of thrombolysis. SURGEON: Dr. Aquilino King. DOG HANDLER OR TRAINER: Nani Jones and Shantell Ayers LRT ANESTHESIA: Local with sedation with 2 mg of Versed and 100 mcg of Fentanyl and 10 mL of 2% lidocaine. ESTIMATED BLOOD LOSS: FLUORO TIME: 18.3 minutes. CONTRAST: 29 mL. SEDATION TIME: From 1402 to 1410 p.m. COMPLICATIONS: None. DRAINS: None. IMPLANTS: None. INDICATION: Patient is a 56-year-old male with severe arterial atherosclerotic occlusive disease in his aortoiliac and femoral popliteal and tibioperoneal arteries. Patient underwent previous stenting and angioplasty of his iliac arteries bilaterally and a right femoral to below knee popliteal artery bypass grafting due to severe ischemic atherosclerotic disease. Patient now presents to the emergency room with ischemia and pain in the right foot and his bypass graft is occluded. Patient will undergo angiography with possible angioplasty, stent and/or thrombolysis. Risks, benefits and alternative treatment options were discussed with the patient. Alternative treatment options included but were not limited to no intervention. Risks included but were not limited to infection, bleeding, renal failure requiring hemodialysis, possible need for open surgical intervention, cerebrovascular accident, myocardial infarction, pulmonary embolus, deep venous thrombosis (DVT), retroperitoneal hematoma, loss of limb, loss of life and poor outcome. Patient understands, accepts these risks and consents to proceed. PROCEDURE: The patient was taken to the angiography suite and placed supine on the angiography room table and then prepped and draped in a standard surgical fashion. A time out was performed confirming the correct patient and procedure after which the left common femoral artery was cannulated with a micropuncture needle after anesthetizing the overlying skin with 1% lidocaine. The micropuncture wire was advanced through the micropuncture needle which was upsized to a micropuncture sheath. A Bentson wire was advanced through the micropuncture sheath which was upsized to a #5-Pashto sheath. An Omniflush catheter was placed in the aorta and an aortogram was performed. Catheter was then pulled down to the level of the bifurcation of the iliac arteries and an iliofemoral angiogram was performed. Catheter was then directed over the bifurcation of the iliac arteries and placed in the right common femoral artery and a right lower extremity angiogram was performed. This showed occlusion of the right common femoral to below knee popliteal artery bypass graft and multiple attempts were made to recanalize into the graft without success. The catheter and wire advanced easily into the superficial femoral artery and an angiogram was performed and further into the popliteal artery where the right lower extremity angiogram performed. This showed a collateral reconstituting the peroneal artery in the below knee region with no other flow noted distally. At this point, the common femoral and superficial femoral artery junction showed an approximate 80% stenosis. This was angioplasty with a 5.4 balloon after which an infusion catheter was placed for infusion of thrombolytic into the right lower extremity in an attempt to reopen the thrombosed vessels distally and allow for reperfusion with either endovascular technique or repeat bypass grafting. Catheters and wires were removed with the infusion catheter placed in the common femoral, superficial femoral and popliteal arteries and thrombolysis was initiated. Dressings were applied. Patient tolerated the procedure well. All instrument, sponge and needle counts were correct at the end of the case. There were no complications. Dr. King was present for and directed the entire case. Patient was transferred to the intensive care unit (ICU) in stable condition. RADIOLOGIC SUPERVISION INTERPRETATION: The initial aortogram showed the superior, mesenteric and celiac arteries to be patent. The renal arteries were patent with some mild disease in the left renal artery at its origin with calcific disease but no specific stenosis or occlusion. The infrarenal aorta was patent as well as the inferior mesenteric artery. There were two stents in place within the common iliac arteries bilaterally which showed some stenosis at the origin of the left common iliac stent of approximately 40%. The right common iliac stent was patent. The distal right external iliac artery showed an approximate 60% stenosis and there was stenosis at the common femoral/superficial femoral junction which was approximately 80%. The common femoral and superficial femoral junction was angioplasty with a 5 x 40 balloon. The catheters were then advanced into the superficial femoral and popliteal arteries which had been recanalized and initially were occluded as well as the femoral to popliteal artery bypass graft. There was a small collateral vessel arising off of the popliteal knee in the below knee region reconstituting the peroneal artery. The anterior tibial artery was small and severely diseased and reconstituted via collaterals off of the profunda femoris. The infusion catheter was placed and thrombolysis initiated.
--- NOTE | 2016-12-22 08:12 | RO ---
DATE OF PROCEDURE: 11/19/2016 PREPROCEDURE DIAGNOSIS: Right lower extremity ischemia, right femoral to popliteal artery bypass graft occlusion. POSTPROCEDURE DIAGNOSIS: Right lower extremity ischemia, right femoral to popliteal artery bypass graft occlusion. PROCEDURE: 42 hour right lower extremity arterial thrombolysis followup, right superficial femoral artery angioplasty with a 6 x 200 balloon, right popliteal artery angioplasty with a 6 x 200 balloon, ultrasound guided right femoral to popliteal artery bypass graft cannulation, right common femoral artery angioplasty with 6 x 200 balloon, right bypass graft angioplasty with 6 x 200 balloon, right popliteal artery angioplasty with 6 x 200 balloon, placement of an infusion catheter with continuation of thrombolysis of the right lower extremity. SURGEON: Dr. Aquilino King. RN WOUND CARE: ANESTHESIA: Local with sedation with 3 mg of Versed and 150 mcg of Fentanyl. ESTIMATED BLOOD LOSS: CONTRAST: 15 mL. SEDATION TIME: From 8:30 a.m. to 9 o'clock a.m. COMPLICATIONS: None. DRAINS: None. SPECIMENS: None. IMPLANTS: None. INDICATION: Patient is a 56-year-old male with severe peripheral vascular disease who underwent a bypass graft in the lower extremity which subsequently thrombosed and the patient has significant ischemia and pain in the right lower extremity. Patient has undergone thrombolysis of the morongo vessels in an attempt to re-establish flow with some of the collateral vessels in the lower limb reopening where there continues to be poor perfusion of the foot distally. Patient will undergo an angiogram with possible angioplasty and/or stent and/or continued thrombolysis. Risks, benefits and alternative treatment options were discussed with the patent. Alternative treatment options included but were not limited to no intervention. Risks included but were not limited to infection, bleeding, renal failure requiring hemodialysis, retroperitoneal hematoma, possible need for open surgical intervention, cerebrovascular accident, myocardial infarction, pulmonary embolus, deep venous thrombosis (DVT), loss of limb, loss of life and poor outcome. Patient understands, accepts these risks and consents to proceed. PROCEDURE: The patient was taken to the angiography suite and placed supine on the angiography room table and then prepped and draped in a standard surgical fashion. A time out was performed confirming the correct patient and procedure. The infusion catheter pre-existing within the right lower extremity was removed over a Benston wire and an angiogram was performed. This showed the morongo popliteal artery and superficial femoral artery to continue to be occluded. There were collaterals noted coming off of the profunda that were filling into the calf region with no reconstitution of tibial vessels noted. The superficial femoral and popliteal artery were angioplastied with a 6 x 200 balloon in an attempt to reopen flow through the morongo vessels without success. The followup angiography showed no flow in the vessels. Ultrasound was then used to guide cannulation of the bypass graft in a retrograde fashion with a micropuncture needle after anesthetizing the overlying skin with 1% lidocaine. The micropuncture wire was advanced through the micropuncture needle which was upsized to a micropuncture sheath. A Benston wire was advanced through the micropuncture sheath which was upsized to a 5-Tajik sheath. This was advanced though the graft into the morongo common femoral artery after which a wire was directed into the graft in an antegrade fashion once the retrograde cannulation was performed. The common femoral, the entire length of the graft and the popliteal artery were angioplastied with a 6 x 200 balloon. A completion angiogram showed good flow through the graft with residual thrombus remaining in the graft and there was flow into the below knee popliteal artery and into the peroneal artery which was occluded in the mid calf and distally. The infusion catheter was replaced and thrombolysis reinitiated with the infusion catheter now within the bypass graft as attempts at recannulation and reopening of the morongo system were unsuccessful. Dressings were applied. Patient tolerated the procedure well. All instrument, sponge and needle counts were correct at the end of the case. There were no complications. Dr. King was present for and directed the entire case. Patient was transferred to the intensive care unit (ICU) for continued right lower extremity thrombolysis and limb salvage. RADIOLOGIC SUPERVISION INTERPRETATION: The initial right lower extremity angiogram after undergoing thrombolysis showed the superficial femoral and popliteal arteries to remain occluded with some collateral flow into the calf off of the profunda femoris artery. The graft was cannulated using ultrasound guidance with a hard copy image preserved and then retrograde cannulation through the graft into the common femoral artery was performed after which the graft was entered in an antegrade fashion. The common femoral artery to graft anastomosis, the entire length of the graft and the graft to popliteal artery anastomosis were angioplastied with the 6 x 200 balloon and a followup angiogram showed thrombus remaining within the graft but there was flow into the morongo popliteal artery and peroneal artery with occlusion of the peroneal artery distally. The infusion catheter was placed and thrombolysis reinitiated.
--- NOTE | 2016-12-22 09:17 | RO ---
DATE OF PROCEDURE: 11/21/2016 PREPROCEDURE DIAGNOSIS: Removal of right femoral to popliteal artery bypass graft sheath with hematoma formation. POSTPROCEDURE DIAGNOSIS: Removal of right femoral to popliteal artery bypass graft sheath with hematoma formation. PROCEDURE: Repair arteriotomy in right femoral to popliteal artery bypass graft. SURGEON: Dr. Misti King PRINTING PLATE CLERK: None. ANESTHESIA: Local MAC. ESTIMATED BLOOD LOSS: 100 mL. IV FLUID: 50 mL. URINE OUTPUT: 600 mL. COMPLICATIONS: None. DRAINS: None. SPECIMENS: None. IMPLANTS: None. INDICATION: Patient is a 56-year-old male who is undergoing thrombolysis of his right lower extremity for limb salvage who had a sheath in his bypass graft in the right thigh which the patient removed accidentally. Patient was bleeding from the site and developing a hematoma and will require repair of the arteriotomy in the bypass graft. Manual compression was applied for hemostasis which was temporary and compression was maintained until the patient was taken to the operating room. Risks, benefits and alternative treatment options were discussed with the patient and alternative treatment options included but were not limited to no intervention. Risks included but were not limited to infection, bleeding, renal failure requiring hemodialysis, possible need for open surgical intervention, cerebrovascular accident, myocardial infarction, pulmonary embolus, deep venous thrombosis (DVT), loss of limb, loss of life and poor outcome. Patient understands, accepts these risks and consents to proceed. PROCEDURE: The patient was taken to the operating room and placed supine on the operating room table and an incision was made over the arteriotomy entry site with a scalpel. This was carried down using sharp dissection. The graft was encircled proximally and distally and then clamped. The arteriotomy was repaired with a #6-0 Prolene suture. The graft clamps were removed and flow re-established through the graft. The patient was currently undergoing thrombolysis in an attempt to salvage his right lower extremity. The wounds were closed with #2-0 Vicryl in deeper layers and darrion in the skin. Patient was returned to the intensive care unit (ICU) in stable condition with continued right lower extremity arterial thrombolysis in an attempt to salvage his right lower extremity. All instrument, sponge and needle counts were correct at the end of the case. There were no complications. Dr. King was present for and directed the entire case. Patient was transferred first to the recovery room and then to the intensive care unit (ICU).
--- NOTE | 2016-12-22 09:28 | RO ---
DATE OF PROCEDURE: 11/22/2016 PREPROCEDURE DIAGNOSIS: Right lower extremity ischemia, thrombosed right femoral to popliteal artery bypass graft. POSTPROCEDURE DIAGNOSIS: Right lower extremity ischemia, thrombosed right femoral to popliteal artery bypass graft. PROCEDURE: Right lower extremity arterial thrombolysis followup, right lower extremity angiogram, right popliteal artery angioplasty with 6 x 200 balloon, right bypass graft angioplasty with 6 x 200 balloon. SURGEON: Aquilino King MD WAFER SUBSTRATE TESTER: None. ANESTHESIA: Local with sedation with 4 mg of Versed and 200 mcg of Fentanyl and 10 mL of 2% Lidocaine. FLUOROSCOPIC TIME: 3.8 minutes. ESTIMATED BLOOD LOSS: CONTRAST: 30 mL. HEPARIN: 7000 units. COMPLICATIONS: None. DRAINS: None. SPECIMENS: None. IMPLANTS: None. INDICATION: Patient is a 56-year-old male with severe atherosclerotic arterial occlusive disease in the right lower extremity, who had previously undergone bypass grafting and has occlusion of his bypass graft. The patient underwent multiple attempts at revascularization and has been undergoing thrombolysis in an attempt to salvage is right lower extremity. The patient had bleeding from the cannulation site of the bypass graft, which required surgical repair. The patient has been undergoing thrombolysis since. The patient will undergo a right lower extremity angiogram with possible angioplasty and/or stent. Risks, benefits and alternative treatment options were discussed with the patent. Alternative treatment options included but were not limited to no intervention. Risks included but were not limited to infection, bleeding, renal failure requiring hemodialysis, possible need for open surgical intervention, retroperitoneal hematoma, cerebrovascular accident, myocardial infarction, pulmonary embolus, deep venous thrombosis (DVT), loss of limb, loss of life and poor outcome. Patient understands, accepts these risks and consents to proceed. PROCEDURE: The patient was taken to the angiography suite and placed supine on the angiography room table and then prepped and draped in a standard surgical fashion. The infusion catheter was removed over a [place] wire after the patient underwent prepping and draping in a standard surgical fashion and a time-out was performed, confirming the appropriate patient and procedure. The angiogram of the right lower extremity was performed, showing some flow into both the graft and the knik system, which was now more open. The graft showed sluggish flow and a stenosis at the distal anastomosis. The knik system was patent down to the popliteal artery at the knee where it occluded and there were collaterals off of the knik system coursing into the calf. The distal anastomosis was angioplastied with the 6 x 200 balloon at the graft to popliteal anastomosis and a completion angiogram was performed showing the peroneal artery to be patent but with thrombus in the mid calf and distally with occlusion of the peroneal artery and only small collateral vessels supplying flow into the foot. The thrombolysis catheter was reinserted and thrombolysis was reinitiated in an order to attempt salvage of the right lower extremity and reestablish flow through the bypass graft. Dressings were applied. The patient tolerated the procedure well. All instrument, sponge and needle counts were correct at the end of the case. There were no complications. Dr. King was present for and directed the entire case. Patient was transferred to the intensive care unit (ICU) for continued right lower extremity arterial thrombolysis. RADIOLOGIC SUPERVISION INTERPRETATION: The initial angiogram showed flow into the profunda femoris. The common femoral was patent into both the graft and the superficial femoral artery with sluggish flow in both. The superficial femoral artery was now patent down to the popliteal artery with collaterals off of the popliteal artery into the calf. The bypass graft was patent down to the anastomosis to the popliteal artery but there was still residual thrombus and stenosis. The graft and the popliteal artery underwent angioplasty with a 6 x 200 balloon with a completion angiogram showing flow into the peroneal artery into the mid calf region where there was occlusion of the peroneal artery due to thrombosis. There was still only small collaterals filling the distal calf, ankle and foot region. The infusion catheter was reinserted and thrombolysis reinitiated.
--- NOTE | 2016-12-22 10:03 | RO ---
DATE OF PROCEDURE: 11/25/2016 PREPROCEDURE DIAGNOSES: Right lower extremity ischemia, thrombosed right femoral to popliteal artery bypass graft. POSTPROCEDURE DIAGNOSES: Right lower extremity ischemia, thrombosed right femoral to popliteal artery bypass graft. PROCEDURE: Right lower extremity arterial thrombolysis followup, right lower extremity angiogram, right common iliac artery angioplasty with 7 x 150 balloon, right external iliac artery angioplasty with 7 x 150 balloon, right common femoral artery angioplasty with 7 x 150 balloon, right femoral to popliteal artery bypass graft angioplasty with 7 x 150 balloon, right common and external iliac artery angioplasty and stent with 10 x 14 Wallstent, post dilated with an 8 x 4 balloon, right common femoral artery bypass graft angioplasty with 8 x 4 balloon. Right bypass graft and popliteal artery anastomosis angioplasty with 7 x 15 balloon. Right tibioperoneal trunk angioplasty with 7 mm balloon and right peroneal artery angioplasty with 7 x 150 mm balloon. Mynx closure of the left common femoral arteriotomy. SURGEON: Aquilino King MD OUTREACH ANALYST: Nani Jones ANESTHESIA: Local with sedation with 2 mg of Versed and 300 mcg of Fentanyl. SEDATION TIME: From 8:02 a.m. to 9:30 a.m. HEPARIN: 7000 units. TPA: 9 mg. FLUOROSCOPIC TIME: 6.1 minutes. ESTIMATED BLOOD LOSS: CONTRAST: 24 mL. COMPLICATIONS: None. DRAINS: None. SPECIMENS: None. IMPLANTS: Right common iliac and external iliac artery stent with a 10 x 49 Wallstent. INDICATION: Patient is a 56-year-old male with ischemia of the right lower extremity who has undergone attempts at revascularization of the right lower extremity with thrombolysis, angioplasty and stenting. The patient now follows up for repeat evaluation of the right lower extremity, which is slightly improved. Risks, benefits and alternative treatment options were discussed with the patent. Alternative treatment options included but were not limited to no intervention. Risks included but were not limited to infection, bleeding, renal failure requiring hemodialysis, possible need for open surgical intervention, retroperitoneal hematoma, cerebrovascular accident, myocardial infarction, pulmonary embolus, deep venous thrombosis (DVT), loss of limb, loss of life and poor outcome. Patient understands, accepts these risks and consents to proceed. PROCEDURE: The patient was taken to the angiography suite and placed supine on the angiography room table and then prepped and draped in a standard surgical fashion after a time out was completed, confirming the appropriate patient and procedure. The infusion catheter was then removed over a [place] wire and a right lower extremity angiogram was performed. This showed flow into the bypass graft as well into the hoh profunda femoris and superficial artery, although the superficial femoral artery flow was sluggish. There was stenosis at the common femoral to graft anastomosis, which was approximately 90%. There was now stenosis noted in the common iliac and external iliac artery. The right common iliac, external iliac, common femoral, and bypass graft were angioplastied with 7 x 150 balloon with a followup angiogram showing residual stenosis in the common and external iliac artery. The common and external iliac artery were angioplastied with a 10 x 49 Wallstent, post dilated with an 8 x 4 balloon. There was also residual stenosis in the graft, common femoral artery anastomosis and this was also angioplastied with the 8 x 4 balloon. A completion angiogram showed continued slow flow into the graft. The graft was evaluated distally and this showed stenosis at the graft to popliteal artery anastomosis with retrograde filling of the superficial femoral artery into the popliteal artery and distal flow into the peroneal artery, which was noted to be severely diseased distally. The graft was then angioplastied with a 7 x 150 balloon. The popliteal artery was angioplastied with a 7 x 150 balloon. The tibioperoneal trunk and the peroneal artery were gently dilated using the 7 mm balloon, which was only inflated to approximately 4 mm. A completion angiogram showed good flow through the graft and into the popliteal artery and peroneal artery. The peroneal artery was patent down to the distal calf where there was only small collaterals arising off the peroneal artery and flowing into the ankle and foot region. Catheters and wires were removed. The sheath was removed and a Mynx closure device was used to close the arteriotomy in the left common femoral artery with an additional 15 minutes of adjunct pressure applied for hemostasis. Dressings were then applied. The patient tolerated the procedure well. All instrument, sponge and needle counts were correct at the end of the case. There were no complications. Dr. King was present for and directed the entire case. Patient was transferred to the holding area and subsequently to the intensive care unit (ICU) in stable condition. RADIOLOGIC SUPERVISION INTERPRETATION: The initial angiogram showed stenosis in the common iliac, external iliac, common femoral and bypass graft. These were angioplastied with a 7 x 150 balloon with residual stenosis. The common iliac and external artery were angioplastied and stented with a 10 x 49 Wallstent and post dilated with an 8 x 4 balloon. The common femoral and bypass graft anastomosis were angioplastied with the 8 x 4 balloon and there was still sluggish flow noted through the graft. There was filling of the profunda femoris and superficial femoral but slow flow into the superficial femoral artery. The distal portion of the graft was then evaluated and there was stenosis noted in the graft to popliteal artery and a small peroneal and tibioperoneal trunk. The popliteal artery and the graft were then angioplastied with a 7 x 150 balloon. The tibioperoneal trunk and peroneal artery were dilated to 4 mm using the 7 mm balloon. A completion angiogram showed good flow through the graft and into the popliteal artery, which filled into the peroneal artery and retrograde into the popliteal artery in the above knee region. There was some aneurysmal area of the graft proximal to the anastomosis with some thrombus remaining within the graft. The patient was given 9 mg of TPA into the graft. The distal runoff was via the peroneal artery, which terminated above the ankle with only small collaterals filling into the ankle and foot region. A Mynx closure device was used to close the arteriotomy in the left common femoral artery.
--- NOTE | 2016-12-23 11:27 | DSES ---
DATE OF ADMISSION: 11/16/2016 DATE OF DISCHARGE: 12/15/2016 ADMITTING DIAGNOSES: 1. Right lower extremity ischemia. 2. Aortic and iliac atherosclerotic arterial occlusive disease. 3. Femoral/popliteal arterial atherosclerotic occlusive disease. 4. Tibioperoneal artery atherosclerotic occlusive disease. MAJOR PROCEDURES PERFORMED DURING THE ADMISSION: 1. Multiple attempts with thrombolysis and angiogram and angioplasty of the right lower extremity. 2. Surgical revision and bypass grafting times two. 3. Right below knee amputation. HOSPITAL COURSE: The patient presented to the emergency room and was admitted with ischemia of the right lower extremity and thrombosis of his right femoral to below popliteal artery bypass graft. The patient underwent many attempts at revascularization endovascularly with thrombolysis and angioplasty and stenting and subsequently required revision of his femoral to below knee popliteal artery bypass graft which thrombosed. The patient underwent a brand new bypass graft from the femoral artery to the peroneal artery, which also subsequently thrombosed and after multiple attempts at limb salvage, the patient eventually underwent a right below knee amputation. The patient did well postoperatively, albeit the continued high requirement for pain medication, but eventually this was controlled and the patient was transferred for inpatient acute rehabilitation on 12/15/2016.
--- NOTE | 2016-12-23 11:51 | RO ---
DATE OF PROCEDURE: 12/06/2016 PREPROCEDURE DIAGNOSES: Aortoiliac atherosclerotic arterial occlusive disease. Femoral popliteal atherosclerotic arterial occlusive disease. Tibioperoneal arterial atherosclerotic arterial occlusive disease. Right lower extremity ischemia. Rest pain. POSTPROCEDURE DIAGNOSES: Aortoiliac atherosclerotic arterial occlusive disease. Femoral popliteal atherosclerotic arterial occlusive disease. Tibioperoneal arterial atherosclerotic arterial occlusive disease. Right lower extremity ischemia. Rest pain. PROCEDURE: 1. Right common femoral artery to peroneal artery bypass graft with a 6 mm Propaten polytetrafluoroethylene (PTFE) graft. 2. Thromboembolectomy of the right common femoral artery and right peroneal artery with Jessica balloons. 3. Insulation of thrombolytic with 20 mg of Tissue Plasminogen Activator (tPA) into the right lower extremity. SURGEON: Fernando Mejia FACILITY MAINTENANCE TECHNICIAN: None. ANESTHESIA: General endotracheal. ESTIMATED BLOOD LOSS: 700 mL IV FLUIDS: 1200 mL heparin 10,000 units. TPA 20 mg. COMPLICATIONS: None. DRAINS: None. SPECIMENS: Thrombus from the peroneal artery. IMPLANTS: 6 mm PTFE graft from the common femoral artery to the peroneal artery. INDICATION: The patient is a 56-year-old male with severe atherosclerotic arterial occlusive disease in the right lower extremity who has undergone a bypass grafting as well as iliac artery angioplasty and stenting followed by revision of his bypass graft due to thrombosis and failed thrombolysis who now has recurrent thrombosis of the graft and ischemia of the right foot. The patient will undergo a repeat revision and/or bypass grafting in an attempt to salvage the right lower extremity and prevent amputation. The risks, benefits, and alternative treatment options were discussed with the patient. Alternative treatment options included but were not limited to no intervention. Risks included but were not limited to infection, bleeding, renal failure requiring hemodialysis, possible need for open surgical intervention, recurrently cerebrovascular accident, myocardial infarction, pulmonary embolus, deep venous thrombosis, loss of limb, loss of life and poor outcome. The patient understands and accepts these risks and consents to proceed. DESCRIPTION OF PROCEDURE: The patient was taken to the operating room and placed on the operating room table then prepped and draped in a standard surgical fashion. The time out was completed confirming the correct patient and procedure. The incision in the right groin was reopened exposing the old bypass graft and femoral patch angioplasty. The incision was made below the level of the previous incision for the popliteal exposure. The peroneal artery was exposed and encircled with Vesseloops. An arteriotomy was made in the peroneal artery, which was noted to have thrombus within it. A thromboembolectomy proximally and distally was performed of the peroneal artery using Jessica balloons with pentecostalism of good back bleeding noted. There was no in-flow noted as the popliteal artery to bypass graft was occluded. The peroneal artery underwent insulation of tPA in an attempt to reopen the small vessels in the foot. A PTFE graft was then tunneled from the common femoral artery incision to the peroneal artery. The graft was fashioned with the ivey and then anastomosed to the peroneal artery in an end-to-side fashion using #6-0 Prolene suture. The previous patch angioplasty of the common femoral artery was opened with an arteriotomy and the graft was anastomosed in an end-to-side fashion the common femoral patch angioplasty. There was good flow through the graft and into the peroneal artery and a good signal in the peroneal artery with Doppler ultrasound evaluation, which was biphasic. Hemostasis was obtained after which the incisions were closed using #2-0 Vicryl to approximate the deeper layers and darrion to approximate the skin. Dressings were applied. The patient tolerated the procedure well. All instruments, sponge and needle counts were correct at the end of the case. There were no complications. Dr. King was present for and directed the entire case. The patient was transferred to the recovery room, awake, alert, extubated and in stable condition.
--- NOTE | 2016-12-23 12:39 | RO ---
DATE OF PROCEDURE: 11/26/2016 PREOPERATIVE DIAGNOSIS: Right lower extremity ischemia, thrombosed right femoral to below knee popliteal artery bypass graft. POSTOPERATIVE DIAGNOSIS: Right lower extremity ischemia, thrombosed right femoral to below knee popliteal artery bypass graft. PROCEDURE: Revision of right femoral to popliteal artery bypass graft with patch angioplasty and endarterectomy of the right common femoral artery and patch angioplasty and endarterectomy of the right popliteal artery. Redo common femoral and popliteal artery exposures. Common femoral arterial thromboembolectomy, bypass graft thromboembolectomy with Jessica balloon. Popliteal and peroneal artery thromboembolectomy with Jessica balloon. SURGEON: Misti King MD WRAPPER STITCHER: None. INDICATION: Patient is a 56-year-old male with ischemia of the right lower extremity who has aortoiliac, femoral, popliteal and tibial peroneal arterial occlusive disease. The patient underwent thrombolysis of his bypass graft which showed some small amount of residual thrombus in the distal graft, but the patient had good flow and has subsequently thrombosed the graft and does now have recurrent ischemia of the right foot. The patient also has poor tibial outflow with only outflow via a peroneal artery, which was patent into the midcalf and then occluded. Patient will undergo revision of his bypass graft in an attempt to salvage his right lower extremity. Risks, benefits and alternative treatment options were discussed with the patient. Alternative treatment options included, but were not limited to, no intervention. Risks included, but were not limited to, infection, bleeding, renal failure requiring hemodialysis, possible need for further open surgical intervention, cerebrovascular accident (CVA), myocardial infarction, pulmonary embolus, deep vein thrombosis (DVT), loss of limb, loss of life and poor outcome. Patient understands, accepts these risks and consents to proceed. ANESTHESIA: General endotracheal. ESTIMATED BLOOD LOSS: 750 mL. IV FLUIDS: 3000 mL of crystalloid. 2 units of packed red blood cells. URINE OUTPUT: 350 mL. Heparin 16,000 units. COMPLICATIONS: None. DRAINS: None. SPECIMENS: Right femoral and popliteal artery plaque. DESCRIPTION OF PROCEDURE: Patient was taken to the operating room, placed supine on the operating room table and then prepped and draped in the standard surgical fashion. A time out was completed confirming the correct patient and procedure. The incision in the right femoral region was made obliquely exposing the bypass graft and the common femoral artery. The bypass graft encircled with vessel loops. The popliteal artery incision was made in the below knee region. The graft was exposed and dissected free as well as the popliteal artery. The graft was opened distally at the popliteal artery. There was thrombus within the graft. A thromboembolectomy was performed of the common femoral bypass graft to popliteal and peroneal artery using Jessica balloons. There was good backbleeding from the peroneal and popliteal arteries and the arteriotomy was closed with a patch angioplasty after plaque was removed from the graft to popliteal artery anastomosis. There was intimal hyperplasia within the anastomosis and this was endarterectomized and removed. The arteriotomy closure in the graft and popliteal artery was performed using a PTFE graft. The common femoral artery was then endarterectomized as well with removal of intimal hyperplastic tissue and plaque after which the endarterectomy site and arteriotomy were closed used a XenoSure biologic patch with #6-0 Prolene suture. There was good flow noted through the common femoral artery into the bypass graft and into the popliteal artery distally with improved capillary refill in the right foot at the completion of the revision. The incisions were then closed using #2-0 to approximate the deeper layers and darrion to approximate the skin. Dressings were applied. Patient tolerated the procedure well. All instrument, sponge and needle counts were correct at the end of the case. There were no complications. Dr. King was present for and directed the entire case. Patient was transferred to the recovery room in stable condition.
[2016-12-29] MEDS ORDERED: ROXI1TAB2 PO (09:23)
== END 2016-12-15 16:40 | DRG 271 ==
LOC: M ED 17:05 → M ED INP 18:41 → M MS5PR 20:45 → OBSVTOIN 11-16 11:17 → M ICU 11-17 15:15 → M MS5PR 11-27 17:30 → M PCU 12-06 21:46 → M ICU 12-07 00:30 → M MS5PR 12-09 15:41
PROVIDERS: ADMIT Surgery Vascular Surgery; ATTEND Surgery Vascular Surgery
PROC: 047K3Z6 (ICD-10-PCS; 2016-11-17)
PROC: 04HY33Z Insertion of Infusion Device into Lower Artery, Percutaneous Approach (ICD-10-PCS; 2016-11-17)
PROC: 3E05317 Introduction of Other Thrombolytic into Peripheral Artery, Percutaneous Approach (ICD-10-PCS; 2016-11-17)
PROC: 047K3Z6 (ICD-10-PCS; 2016-11-19)
PROC: [UNRECOGNIZED PROCEDURE] (2016-11-19)
PROC: 04HY33Z Insertion of Infusion Device into Lower Artery, Percutaneous Approach (ICD-10-PCS; 2016-11-19)
PROC: 3E05317 Introduction of Other Thrombolytic into Peripheral Artery, Percutaneous Approach (ICD-10-PCS; 2016-11-19)
PROC: 04QK0ZZ Repair Right Femoral Artery, Open Approach (ICD-10-PCS; 2016-11-21)
PROC: 04PY33Z Removal of Infusion Device from Lower Artery, Percutaneous Approach (ICD-10-PCS; 2016-11-22)
PROC: 04HY33Z Insertion of Infusion Device into Lower Artery, Percutaneous Approach (ICD-10-PCS; 2016-11-22)
PROC: 3E05317 Introduction of Other Thrombolytic into Peripheral Artery, Percutaneous Approach (ICD-10-PCS; 2016-11-22)
PROC: 30253N1 (ICD-10-PCS; 2016-11-22)
PROC: 047C3DZ Dilation of Right Common Iliac Artery with Intraluminal Device, Percutaneous Approach (ICD-10-PCS; 2016-11-25)
PROC: 047H3DZ Dilation of Right External Iliac Artery with Intraluminal Device, Percutaneous Approach (ICD-10-PCS; 2016-11-25)
PROC: 047K3ZZ Dilation of Right Femoral Artery, Percutaneous Approach (ICD-10-PCS; 2016-11-25)
PROC: 047M3ZZ Dilation of Right Popliteal Artery, Percutaneous Approach (ICD-10-PCS; 2016-11-25)
PROC: 04WY3JZ Revision of Synthetic Substitute in Lower Artery, Percutaneous Approach (ICD-10-PCS; 2016-11-26)
PROC: 04CM3ZZ Extirpation of Matter from Right Popliteal Artery, Percutaneous Approach (ICD-10-PCS; 2016-11-26)
PROC: 04CT3ZZ Extirpation of Matter from Right Peroneal Artery, Percutaneous Approach (ICD-10-PCS; 2016-11-26)
PROC: 02HV33Z Insertion of Infusion Device into Superior Vena Cava, Percutaneous Approach (ICD-10-PCS; 2016-11-29)
PROC: 04CK3ZZ Extirpation of Matter from Right Femoral Artery, Percutaneous Approach (ICD-10-PCS; 2016-12-06)
PROC: 041 Lower Arteries, Bypass (ICD-10-PCS; 2016-12-06)
PROC: 04CT3ZZ Extirpation of Matter from Right Peroneal Artery, Percutaneous Approach (ICD-10-PCS; 2016-12-06)
PROC: 3E05317 Introduction of Other Thrombolytic into Peripheral Artery, Percutaneous Approach (ICD-10-PCS; 2016-12-06)
PROC: 0Y6H0Z1 Detachment at Right Lower Leg, High, Open Approach (ICD-10-PCS; principal; 2016-12-09 09:00)
DX: T82.868A Thrombosis due to vascular prosthetic devices, implants and grafts, initial encounter (principal); R45.851 Suicidal ideations; Y83.1 Surgical operation with implant of artificial internal device as the cause of abnormal reaction of the patient, or of later complication, without mention of misadventure at the time of the procedure; I77.1 Stricture of artery; I70.0 Atherosclerosis of aorta; I70.5 Atherosclerosis of nonautologous biological bypass graft(s) of the extremities; J44.9 Chronic obstructive pulmonary disease, unspecified; F32.9 Major depressive disorder, single episode, unspecified; F41.9 Anxiety disorder, unspecified; G47.00 Insomnia, unspecified; F43.23 Adjustment disorder with mixed anxiety and depressed mood; Z86.73 Personal history of transient ischemic attack (TIA), and cerebral infarction without residual deficits; Z79.01 Long term (current) use of anticoagulants; Z79.899 Other long term (current) drug therapy; Z86.711 Personal history of pulmonary embolism; Z85.038 Personal history of other malignant neoplasm of large intestine

== ENCOUNTER 2016-12-15 15:08 | Inpatient (IN) | payer MEDICAID, MEDICARE ==
[~2016-12-15] VITALS: Ht 188 cm; Wt 90.8 kg
[~2016-12-15 15:08] MED LIST changes: +AMLO5TAB2 PO; +CARV3.12 PO; +CLON0.5T PO; +COUM7.5T PO; +DULO1CAP2 PO; +OXYC20TA40 PO; +OXYCO5TA PO; +TRAZ10TA PO
[2016-12-15] MEDS ORDERED: MOM 30ML SUSPENSION UDC PO PRN (15:45)
[2016-12-15] MEDS ORDERED: BISACODYL 10 MG SUPP PR PRN (15:45)
[2016-12-15] MEDS ORDERED: FLEET ENEMA PR PRN (15:45)
[2016-12-15] MEDS ORDERED: ALBUTEROL 90 MCG/ACT 8GM HFA INHALER INH PRN (16:00)
[2016-12-15] MEDS ORDERED: zolPIDEM TARTRATE 5 MG TAB PO PRN (16:00)
[2016-12-15 16:45] VITALS: BP 131/80
[2016-12-15] MEDS ORDERED: HEPARIN SOD (PORCINE) 5000 UNITS/ML VIAL IV PRN (17:00)
[2016-12-15 17:36] LABS: MEAN CORPUSCULAR HEMOGLOBIN 29.3 pg (27.0-33.0); MEAN CORPUSCULAR HGB CONC 31.7 g/dl (32.0-36.5); MEAN CORPUSCULAR VOLUME 92.6 fl (80.0-96.0); RED CELL DISTRIBUTION WIDTH 14.3 % (11.5-14.5); WHITE BLOOD COUNT 10.7 K/mm3 (4.0-10.0)
[2016-12-15] MEDS: oxyCODONE 5MG TAB PO PRN ×2 (18:14→22:15)
[2016-12-15] MEDS ORDERED: SODIUM CHLORIDE 0.9% INJ 10 ML SYR IV PRN (18:15)
[2016-12-15 20:00] VITALS: BP 134/62
[2016-12-15] MEDS ORDERED: WARFARIN SOD 7.5 MG TAB PO ONE (20:00)
[2016-12-15] MEDS: ATORVASTATIN 20 MG TAB PO SCH (20:18)
[2016-12-15] MEDS: GABAPENTIN 400 MG CAP PO SCH (20:18)
[2016-12-15] MEDS: DOCUSATE SODIUM 100 MG CAP PO SCH (20:18)
[2016-12-15] MEDS: SENOKOT S TAB PO SCH (20:18)
[2016-12-15] MEDS: oxyCODONE 20 MG CR TAB PO SCH (20:21)
[2016-12-15] MEDS: CARVedilol 3.125 MG TAB PO SCH (20:22)
[2016-12-15] MEDS: cloNIDine 0.1 MG TAB PO SCH (20:22)
[2016-12-15] MEDS ORDERED: traZODone 100 MG TAB PO SCH (21:00)
--- NOTE | 2016-12-15 22:59 | PMRHPE ---
DATE OF ADMISSION: 12/15/2016 REASON FOR ADMISSION: Rehabilitation of right below-knee amputation of 12/09/2016. HISTORY OF PRESENT ILLNESS: Patient is a 56-year-old white male with extensive atherosclerotic cardiovascular disease, having already had a cerebrovascular accident (CVA), hypertension, extensive peripheral vascular disease, and deep vein thrombosis (DVT) and pulmonary embolus who developed ischemia in the right lower extremity and ulcerations and infection. Patient status post several vascular procedures to try and regain circulation and heal. Was not able to, and on 12/09/2016 Dr. Aquilino King from vascular surgery performed a right below-knee amputation. Patient has had some problems with pain since then; however, has started in physical and occupational therapy and expressed his profound desire to participate in acute intensive rehabilitation to regain skills to allow him to return to home. Therefore, patient is felt today to be appropriate for a trial of acute intensive rehabilitation of his right below-knee amputation. PAST MEDICAL HISTORY: Includes: 1. Atherosclerotic cardiovascular disease, including peripheral vascular disease, hypertension, prior CVA, right lower extremity ischemia, and DVT with pulmonary embolus. 2. Diverticulosis and diverticulitis. 3. Iron deficiency anemia. 4. History of colon cancer resection. 5. Status post cardiac surgery. 6. Status post multiple vascular shunt surgeries, including femoral tibial shunt in the right lower extremity. FAMILY HISTORY: Noncontributory. SOCIAL HISTORY: Patient is single, male, living with his mother and sister on social security disability. 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 He does not smoke cigarettes, use tobacco or alcohol, and only illicit drug history he reports is marijuana as a teenager. MEDICATIONS: On admission: - Patient has been on morphine sulfate IV every 2 hours for severe pain, 5 mg. That is being discontinued at time of transfer. - He is on Coumadin 7.5 mg, trying to work toward therapeutic INR of 2.0-3.0 range - OxyContin 20 mg every 12 hours - oxycodone 5 mg every 4 hours as needed for moderate to severe pain - trazodone 100 mg at bedtime for sleep - clonazepam 0.5 mg twice a day as needed anxiety - Ambien 5 mg by mouth at bedtime as needed insomnia - heparin drip, currently 29 mL per hour on 25,000/250 mL packet, changing every 8 hours - sodium chloride flushes of peripherally inserted central catheter (PICC) line - heparin sodium 200 unit flushes of PICC line and heparin sodium 200 unit flushes of IV, and sodium chloride 10 mL flush of IV line - milk of magnesia 3 mL twice a day for constipation - Dulcolax suppository 10 mg per rectum as needed for constipation on a daily basis as needed - amlodipine 5 mg daily for hypertension - atorvastatin 20 mg daily for hyperlipidemia - Coreg 3.125 mg twice a day for hypertension and cardiac rhythm - Proventil inhaler two puffs four times a day as needed for shortness of breath - clonidine 0.1 mg by mouth three times a day for hypertension - gabapentin 800 mg three times a day for neurogenic pain - Protonix 40 mg daily for gastroesophageal reflux disease (GERD) protection - Cymbalta 30 mg daily for mood and nerve pain - Colace 100 mg twice a day for bowel program - Senokot-S one tablet twice a day for bowel program - Tylenol 650 mg every 6 hours as needed for pain or temperature ALLERGIES: Patient with no known drug allergies. REVIEW OF SYSTEMS: A 10-point review is negative except for some mild depression and anxiousness, which has been relieved by patient seeing improving chance for returning home, which is what he was worrying about. Also pain in his right lower extremity from the surgery site and vascular surgery and below-knee amputation (BKA) surgeries. Otherwise negative. PHYSICAL EXAMINATION: Patient is average height, well-nourished, well-developed, somewhat anxious, middle-aged white male who weighs approximately 97 kg with a right below-knee amputation in a bulky dressing and fairly good knee range of motion. VITAL SIGNS: Temperature of 96.9, blood pressure 140/86, pulse 94, respirations 12, pulse oximetry 98% on room air. HEENT: Normocephalic, atraumatic. Pupils are equal, round, reactive to light and accommodation, pupils being approximately 4 mm in diameter. Extraocular motions are intact. Head is normocephalic, atraumatic. NECK: Supple with normal thyroid without goiter or nodules and good mobility on swallow test. No carotid bruits are present. LUNGS: Clear in all redd to auscultation. CORONARY: Shows a regular rate and rhythm with normal S1, S2 without S3, S4 murmurs or rubs. ABDOMEN: Obese with no palpable tenderness or masses, and normal bowel sounds are present in all quadrants. Upper extremities with full active range of motion and normal strength. Plus IV line and a PICC line present. Lower extremities show prior vascular surgery site , right lower extremity, in the femoral vein. There is no drainage from the incision line of the below-knee amputation, which shows a moderate length of tibia preserved. No head or erythema is found as well in the limb. Left lower extremity with full active range of motion and normal strength. NEUROLOGICAL: Patient is alert and oriented to person, place, time, and situation. He is a bit anxious, though overall pleasant and cooperative seems to be relieved as we discuss the process for rehabilitation and recovery from the amputation that is usual for patient and gets reassurances about continuing pain management. Sitting balance is good, standing not tested. Deep tendon reflexes show trace knee jerks , trace left ankle jerks, downgoing toes on plantar stimulation of the left, 2/4 biceps and brachioradialis in the upper extremities, and 1/4 triceps. No clonus is present in the upper or lower extremities.Light touch, however, is diminished in the distal quarter, and vibration is reduced in the distal quarter of the left lower extremity. Intact in bilateral upper extremities from the knee proximal in both lower extremities. LABORATORY DATA: Shows patient with moderate anemia and mild elevation of white blood cell count, which is diminishing over time, currently white blood cells 10.6, hemoglobin and hematocrit being 8.8 and 28.0, which has been stable, MCV of 91.2, and platelet count normal at 144,000. Yesterday's basic metabolic panel (BMP) shows normal electrolytes and BUN and creatinine and glomerular filtration rate with mildly elevated fasting blood sugar of 108 and calcium level of 8.6. ASSESSMENT/PLAN: 1. Rehabilitation of right below-knee amputation secondary to chronic ischemia and infection of the right foot. Patient who appears to have a good surgical incision and closure site. Appears to be quite capable of regaining modified independence in mobility and activities of daily living (ADLs), using either rolling walker or crutches. We have discussed the advantage of crutches for more environments, but first patient will learn adapted mobility ADLs in a wheelchair and then transition to a standing device to facilitate return to home. At this time I do feel patient is capable of and motivated to do the 3 hours per day of physical and occupational therapy and should be able to transition from his current level to the modified independent within about 7-10 days, though I do feel the main thing will be holding him back is pain, but will work to manage this. Will continue with OxyContin and to give him a baseline analgesia and try and get oxycodone 5 mg before morning and afternoon therapies to allow him to give his best effort. 2. Atherosclerotic cardiovascular disease, including hypertension, hyperlipidemia, peripheral vascular disease, prior cerebrovascular accident (CVA). He seems to be relatively stable at this time and will continue to monitor. 3. Moderate anemia. Will continue to monitor this. 4. Anxiety/depression. I will go ahead and continue patient on his Cymbalta and have Ambien to assist sleep along with the trazodone, which should help sleeping and mood. Patient also on clonidine, which sometimes is beneficial for mood as well. 5. Deep vein thrombosis (DVT) and graft clotting prevention. Will continue patient on the heparin drip and will continue with daily Coumadin until patient becomes therapeutic on the Coumadin, then as that progresses will decrease the insulin drip. Dr. King has been consulted to continue following patient and adjust his surgical care and dressings as he deems appropriate, and medicine consulted for management of medical problems and to assist in heparin drip management. POSTADMISSION PHYSICIAN EVALUATION: Patient has been consistent with the notes and preadmission screening. I do feel patient is right now very limited, usually requiring moderate to maximum assist in most ADLs and mobility and needs to gain a level of being able to do about 5 stairs and greater than 150 feet of ambulation using either a walker or crutches as well as become modified independent in ADLs with these mobility techniques. Alternatives would be gain a ramp at home and wheelchair accessibility being confirmed, in which case patient should be able to do sliding-board transfers and achieve goals even faster, but at this time I do anticipate patient will be able to go home with his mother and sister and has a good prognosis and estimated length of stay in the 7-10-day range, though if patient is able to overcome some of the anxiousness and pain, he may progress faster than that. Time spent on chart review, history and physical, and documentation is greater than 70 minutes. GENO
[2016-12-16] MEDS: HEPARIN DRIP 25,000 UNITS in APPROPRIATE DILUENT 1 EA IV SCH ×3 (00:32→21:57)
[2016-12-16] MEDS: clonazePAM 0.5 MG TAB PO PRN (00:37)
[2016-12-16] MEDS: ACETAMINOPHEN TAB 650MG DOSE (2X325MG) PO PRN ×3 (00:37→16:17)
[2016-12-16 03:31] LABS: BASO # 0.2 K/mm3 (0.0-0.2); BASO % 2.3 % (0.0-1.0); EOS # 0.4 K/mm3 (0.0-0.50); EOS % 3.8 % (0.0-3.0); LARGE UNSTAINED CELL # 0.4 K/mm3 (0.0-0.4); LARGE UNSTAINED CELL % 3.5 % (0.0-4.0); LYMPH # 1.1 K/mm3 (1.5-4.5); LYMPH % 10.6 % (24.0-44.0); MEAN CORPUSCULAR HEMOGLOBIN 28.9 pg (27.0-33.0); MEAN CORPUSCULAR HGB CONC 31.8 g/dl (32.0-36.5); MEAN CORPUSCULAR VOLUME 90.8 fl (80.0-96.0); MONO # 0.5 K/mm3 (0.0-0.8); MONO % 5.2 % (0.0-5.0); NEUTROPHILS # 7.9 K/mm3 (1.8-7.7); NEUTROPHILS % 74.7 % (36.0-66.0); PLATELET COUNT, AUTOMATED 241 k/mm3 (150-450); RED CELL DISTRIBUTION WIDTH 14.4 % (11.5-14.5); WHITE BLOOD COUNT 10.5 K/mm3 (4.0-10.0)
[2016-12-16 03:40] LABS: INR 1.34
[2016-12-16 03:52] LABS: ALBUMIN 2.1 GM/DL (3.2-5.2); ALKALINE PHOSPHATASE 93 U/L (45-117); ALT/SGPT 52 U/L (12-78); ANION GAP 8 MEQ/L (8-16); AST/SGOT 43 U/L (15-37); BILIRUBIN,TOTAL 0.2 MG/DL (0.2-1.0); BLOOD UREA NITROGEN 19 MG/DL (7-18); CALCIUM LEVEL 9.2 MG/DL (8.5-10.1); CARBON DIOXIDE LEVEL 28 MEQ/L (21-32); CHLORIDE LEVEL 100 MEQ/L (98-107); CREATININE FOR GFR 1.18 MG/DL (0.70-1.30); GLOMERULAR FILTRATION RATE > 60.0 (>56); GLUCOSE, FASTING 103 MG/DL (70-105); POTASSIUM SERUM 4.6 MEQ/L (3.5-5.1); SODIUM LEVEL 136 MEQ/L (136-145); TOTAL PROTEIN 7.4 GM/DL (6.4-8.2)
[2016-12-16] MEDS: oxyCODONE 5MG TAB PO PRN ×4 (04:06→18:25)
[2016-12-16] MEDS: SODIUM CHLORIDE 0.9% INJ 10 ML SYR IV SCH ×2 (05:27→16:18)
[2016-12-16 06:00] VITALS: BP 114/72
[2016-12-16] MEDS: cloNIDine 0.1 MG TAB PO SCH ×3 (08:36→20:39)
[2016-12-16] MEDS: DOCUSATE SODIUM 100 MG CAP PO SCH ×2 (08:37→20:40)
[2016-12-16] MEDS: amLODIPine 5 MG TAB PO SCH (08:37)
[2016-12-16] MEDS: CARVedilol 3.125 MG TAB PO SCH ×2 (08:37→20:40)
[2016-12-16] MEDS: PANTOPRAZOLE 40MG TAB (PROTONIX) PO SCH (08:37)
[2016-12-16] MEDS: GABAPENTIN 400 MG CAP PO SCH ×3 (08:37→20:40)
[2016-12-16] MEDS: oxyCODONE 20 MG CR TAB PO SCH ×2 (08:38→20:39)
[2016-12-16] MEDS: SENOKOT S TAB PO SCH ×2 (08:38→20:40)
[2016-12-16] MEDS: DULoxetine 30 MG CAP (CYMBALTA) PO SCH (08:38)
--- NOTE | 2016-12-16 12:05 | IPNPDOC ---
Pattern Designer Progress Note DATE OF SERVICE: 12/16/16 DATE OF ADMISSION: Dec 15, 2016 at 16:43 INPATIENT REHABILITATION ADMISSION DAY: #2 SUBJECTIVE: Patient is a 56-year-old white male with right BKA and healing femoral-tibial arterial graft. Patient admitted for initial pre-prosthetic mobility and ADL training with physical and occupational therapy to facilitate relative safe return to home. This morning patient seen laying in bed but having his right knee bent and showing some increase in extension lag. Patient shown use pillow to support BKA stump and allow gravity to help with stretching the knee into greater extension and encouraged to do this all the time he is in bed. However patient is encouraged to be up out of bed in chair and focus on positioning with knee extension. Patient does report ongoing pain but overall had reasonable pain control and slept well. No other complaints. ALLERGIES: See Below MEDICATIONS: Reviewed, see below. OBJECTIVE: VITAL SIGNS: Please see below. PHYSICAL EXAMINATION: GENERAL: Overweight middle-age white male right BKA and dressings are clean without drainage. Patient approximately 15-20 knee flexion. He appears to be in very mild musculoskeletal distress. HEENT: Normocephalic/atraumatic. CARDIOVASCULAR: Regular rate and rhythm with normal S1-S2. 2/4 bilateral radial pulses. LUNGS: All redd clear to auscultation. ABDOMEN: Benign, obese, nontender with normal bowel sounds in all quadrants. NEUROLOGICAL: Patient alert and oriented 4. Speech is clear, coherent and appropriate. Affect in general is pleasant and cooperative, but he has a little anxious and does have a little flattening. Bilateral upper extremities or sensory motor intact. Left lower extremity sensory motor intact except for decreased sensorium from the ankle distally to light touch and vibration. Good right hip movement and motor but some guarding of movement and right knee with a fair amount of motor guarding. SKIN: Healing grafts and amputation incision, that are clean, without inflammation or drainage. LABORATORY DATA: Reviewed. Please see below. MICROBIOLOGY: Please see below. IMAGING: No new imaging. DVT prophylaxis ordered?: Left lower extremity ISA hose, Heparin drip till Coumadin therapeutic. ASSESSMENT AND PLAN: 1. Rehabilitation of right BKA: At this time very important to get patient to focus on proper positioning and stretching as well as tapping and sensory integration of the residual limb. Patient starting with physical occupational therapies today. We need to try and keep patient up and active for most of the day but most importantly right upper and right lower extremity positioning. Rehabilitation Team Rounds: Patient noted by team to have some emotional liability. He is also not very consistent with following through with training or putting out the best effort. Currently, my main concern is development of Right knee contracture if he does not adhere. I will consult Mr. Michel MckeonCPO to get patient in a FloThru Knee Orthosis to protect the residual limb and maintain extension. Anticipated D/C Date is 12/29 for now. I will consult Dr. Gary to reassess the patient. 2. Pain management: Patient appears to be receiving reasonable analgesia as he appears very comfortable without any sedation or factors working against his ability to participate in therapy. However I do feel patient is at risk of over self-limiting of the limb. 3. DVT prophylaxis: INR 1.36 so I will have patient on Coumadin 7.5 mg at 1700 hrs. today and recheck INR tomorrow. For now APTT is 80.6 and heparin being adjusted accordingly. However best treatment for then should've clots will be getting patient up active and moving bilateral lower extremities. 4. Moderate anemia: H&H is relatively stable at 8.7 and 27.3%. We'll continue to monitor heart rate and blood pressure and periodic CBCs. 5. Elevated white count: Mild down patient of white count seen today at 10.5K WBC's, with 7.9 thousand neutrophils. However no fever. TIME SPENT: Chart Review, examination and documentation required greater than 35 minutes. Allergies Coded Allergies: No Known Drug Allergy (Verified Allergy, Unknown, 07/23/16) Vital Signs Vital Signs Date Time Temp Pulse Resp B/P (MAP) Pulse Ox O2 Delivery O2 Flow Rate FiO2 12/16/16 09:50 18 Room Air 12/16/16 08:36 114/72 12/16/16 06:00 98.1 101 97 Laboratory Data CBC/BMP Laboratory Tests 12/15/16 17:28 Red Blood Count 2.82 L, Mean Corpuscular Volume 92.6, Mean Corpuscular Hemoglobin 29.3, Mean Corpuscular Hemoglobin Concent 31.7 L, Red Cell Distribution Width 14.3 12/16/16 03:17 Red Blood Count 3.00 L, Mean Corpuscular Volume 90.8, Mean Corpuscular Hemoglobin 28.9, Mean Corpuscular Hemoglobin Concent 31.8 L, Red Cell Distribution Width 14.4, Neutrophils (%) (Auto) 74.7 H, Lymphocytes (%) (Auto) 10.6 L, Monocytes (%) (Auto) 5.2 H, Eosinophils (%) (Auto) 3.8 H, Basophils (%) (Auto) 2.3 H, Neutrophils # (Auto) 7.9 H, Lymphocytes # (Auto) 1.1 L, Monocytes # (Auto) 0.5, Eosinophils # (Auto) 0.4, Basophils # (Auto) 0.2, Calcium Level 9.2, Aspartate Amino Transf (AST/SGOT) 43 H, Alanine Aminotransferase (ALT/SGPT ) 52, Alkaline Phosphatase 93, Total Bilirubin 0.2, Total Protein 7.4, Albumin 2.1 L Labs 24H Laboratory Tests 2 12/15/16 21:06: Urine Appearance CLEAR, Urine Color YELLOW, Urine pH 6.0, Urine Specific Alexander 1.015, Urine Protein NEGATIVE, Urine Glucose (UA) NEGATIVE, Urine Ketones NEGATIVE, Urine Urobilinogen 0.2, Urine Bilirubin NEGATIVE, Urine Leukocyte Esterase NEGATIVE, Urine Blood NEGATIVE, Urine Nitrite NEGATIVE, Urine WBC (Auto) 0, Urine RBC (Auto) 2, Urine Hyaline Casts (Auto) 0, Urine Bacteria (Auto) NEGATIVE, Urine Squamous Epithelial Cells 0, Urine Mucus (Auto) SMALL, Urine Sperm (Auto) 12/15/16 21:26: Activated Partial Thromboplast Time 87.8H 12/16/16 03:17: Activated Partial Thromboplast Time 115.9H, White Blood Count 10.5H, Red Blood Count 3.00L, Hemoglobin 8.7L, Hematocrit 27.3L, Mean Corpuscular Volume 90.8, Mean Corpuscular Hemoglobin 28.9, Mean Corpuscular Hemoglobin Concent 31.8L, Red Cell Distribution Width 14.4, Platelet Count 241, Neutrophils (%) (Auto) 74.7H, Lymphocytes (%) (Auto) 10.6L, Monocytes (%) (Auto) 5.2H, Eosinophils (%) (Auto) 3.8H, Basophils (%) (Auto) 2.3H, Neutrophils # (Auto) 7.9H, Lymphocytes # (Auto) 1.1L, Monocytes # (Auto) 0.5, Eosinophils # (Auto) 0.4, Basophils # ( Auto) 0.2, Large Unclassified Cells % 3.5, Large Unclassified Cells # 0.4, Prothrombin Time 16.9H, Prothromb Time International Ratio 1.34, Anion Gap 8, Glomerular Filtration Rate > 60.0, Blood Urea Nitrogen 19H, Creatinine 1.18, Sodium Level 136, Potassium Level 4.6, Chloride Level 100, Carbon Dioxide Level 28, Calcium Level 9.2, Aspartate Amino Transf (AST/SGOT) 43H, Alanine Aminotransferase (ALT/SGPT) 52, Alkaline Phosphatase 93, Total Bilirubin 0.2, Total Protein 7.4, Albumin 2.1L, Albumin/Globulin Ratio 0.40L 12/16/16 10:42: Activated Partial Thromboplast Time 80.6H Current Medications Current Medications Current Medications Acetaminophen (Tylenol Tab) 650 mg Q6HP PRN PO PAIN / FEVER Last administered on 12/16/16 06:22; Start 12/15/16 at 15:45; Stop 01/14/17 at 15:44 Albuterol Sulfate (Proventil, Ventolin Hfa) 2 puff Q6HP PRN INH SHORTNESS OF BREATH; Start 12/15/16 at 16:00; Stop 01/14/17 at 15:59 Amlodipine Besylate (Norvasc) 5 mg DAILY PO Last administered on 12/16/16 08:37 ; Start 12/16/16 at 09:00; Stop 01/15/17 at 08:59 Atorvastatin Calcium (Lipitor) 20 mg QHS PO Last administered on 12/15/16 20:18 ; Start 12/15/16 at 21:00; Stop 01/14/17 at 20:59 Bisacodyl (Dulcolax Suppository) 10 mg DAILYPRN PRN [place] CONSTIPATION; Start 12/15 at 15:45; Stop 01/14/17 at 15:44 Carvedilol (COReg) 3.125 mg BID PO Last administered on 12/16/16 08:37; Start 12/15/16 at 21:00; Stop 01/14/17 at 20:59 Clonazepam (KlonoPIN) 0.5 mg BID PRN PO ANXIETY Last administered on 12/16/16 00:37; Start 12/15/16 at 16:00; Stop 12/22/16 at 15:59 Clonidine HCl (Catapres) 0.1 mg TID PO Last administered on 12/16/16 08:36; Start 12/15/16 at 21:00; Stop 01/14/17 at 20:59 Docusate Sodium (Colace) 100 mg BID PO Last administered on 12/16/16 08:37; Start 12/15/16 at 21:00; Stop 01/14/17 at 20:59 Duloxetine HCl (Cymbalta) 30 mg DAILY PO Last administered on 12/16/16 08:38; Start 12/16/16 at 09:00; Stop 01/15/17 at 08:59 Gabapentin (Neurontin) 800 mg TID PO Last administered on 12/16/16 08:37; Start 12/15/16 at 21:00; Stop 01/14/17 at 20:59 Heparin Sodium (Heparin (Flush)) 200 units PICC IV Last administered on 05:28; Start 12/16/16 at 06:00; Stop 01/15/17 at 05:59 Heparin Sodium (Porcine) (Heparin) ASDIRECTED PRN IV SEE LABEL COMMENTS; Start 12/15/16 at 17:00; Stop 12/20/16 at 16:59 Heparin Sodium (Porcine) 89413 units/IV Miscellaneous Supplies 250 ml @ 0 mls/ hr Q0M IV Last administered on 12/16/16 11:13; Start 12/15/16 at 17:53; Stop 03/29 at 17:52 Magnesium Hydroxide (Milk Of Magnesia) 30 ml BIDP PRN PO CONSTIPATION; Start at 15:45; Stop 01/14/17 at 15:44 Non-Formulary Medication (Heparin Iv Rate Change Documentation ml/ Hr) ASDIRECTED XX Last administered on 12/16/16 04:33; Start 12/15/16 at 17:00; Stop 12/20/16 at 16:59 Oxycodone HCl (OxyCONTIN) 20 mg BID PO Last administered on 12/16/16 08:38; Start 12/15/16 at 21:00; Stop 12/22/16 at 20:59 Oxycodone HCl (Roxicodone, Oxyir) 5 mg Q4HP PRN PO PAIN SCALE 6-10 Last administered on 12/16/16 09:19; Start 12/15/16 at 16:00; Stop 12/22/16 at 15:59 Pantoprazole Sodium (Protonix) 40 mg DAILY PO Last administered on 12/16/16 08: 37; Start 12/16/16 at 09:00; Stop 01/15/17 at 08:59 Senna/Docusate Sodium (Senokot S) 1 tab BID PO Last administered on 12/16/16 08 :38; Start 12/15/16 at 21:00; Stop 01/14/17 at 20:59 Sodium Biphosphate/ Sodium Phosphate (Fleet Enema) 1 ea DAILYPRN PRN [place] CONSTIPATION; Start 12/15/16 at 15:45; Stop 01/14/17 at 15:44 Sodium Chloride (Saline Lock Flush) 10 ml ASDIRECTED PRN IV SEE LABEL COMMENTS ; Start 12/15/16 at 18:15; Stop 01/14/17 at 18:14 Sodium Chloride (Saline Lock Flush) 10 ml PICC IV Last administered on 05:27; Start 12/16/16 at 06:00; Stop 01/15/17 at 05:59 Trazodone HCl (Desyrel) 100 mg QHS PO Last administered on 12/15/16 20:18; Start 12/15/16 at 21:00; Stop 01/14/17 at 20:59 Zolpidem Tartrate (Ambien) 5 mg QHSP PRN PO INSOMNIA; Start 12/15/16 at 16:00; Stop 12/22/16 at 15:59 MELISSA HARTLEY MD Dec 16, 2016 12:05
[2016-12-16 14:00] VITALS: BP 141/89
--- NOTE | 2016-12-16 16:36 | IPN ---
DATE: 12/16/2016 A 56-year-old male seen in consultation on 12/11/2016 for depression, suicidal thoughts, insomnia, high anxiety and pain. The patient was in 1-in-1 observation due to suicidal thoughts. The patient is status post [id number] amputation. SUBJECTIVE: "I'm doing a little better." OBJECTIVE: The patient has improved slowly. The patient reports six hours of sleep but still has the sense that he is not resting well. The patient reports some mood swings, anxiety. The patient continues to be somewhat labile. It is difficult to adjust the psychiatric medication in the context of this high dosage of opiates that he has been receiving. However, now this medication has increasingly decreased. I discussed the treatment plan with the patient. There is no evidence of psychotic symptoms. No auditory or visual hallucinations or delusions. The patient is able to contract for safety today during the interview. The patient was enjoying the visitation of his mother. The patient appears to be motivated for treatment. MENTAL STATUS EXAMINATION: The patient is dressed in hospital gown. The patient is cooperative. Speech is normal in rate, volume and articulation. Mood is depressed and anxious. Affect is labile but less severe than in previous days. No delusions or hallucinations. Memory, attention and concentration are fair. The patient is now able to contract for safety and is denying suicidal or homicidal ideation. Insight and judgment is fair. ASSESSMENT: 1. Depression/suicidal thoughts in the past. 2. High anxiety. 3. Insomnia. PLAN: 1. Increase trazodone to 150 mg by mouth nightly. 2. Continue Ambien 10 mg by mouth nightly as needed for insomnia. 3. Continue Klonopin 0.5 mg by mouth twice a day. 4. The patient needs to be reevaluated before discharge, probably transferred to the psychiatric floor to finish medication management.
[2016-12-16] MEDS ORDERED: WARFARIN SOD 7.5 MG TAB PO ONE (17:00)
[2016-12-16] MEDS ORDERED: WARFARIN SOD 4 MG TAB PO SCH (17:00)
[2016-12-16 20:00] VITALS: BP 112/58
[2016-12-16] MEDS: ATORVASTATIN 20 MG TAB PO SCH (20:40)
[2016-12-16] MEDS: traZODone 50 MG TAB PO SCH (20:40)
[2016-12-17] MEDS: oxyCODONE 5MG TAB PO PRN ×4 (01:24→16:40)
[2016-12-17] MEDS: SODIUM CHLORIDE 0.9% INJ 10 ML SYR IV SCH ×2 (05:39→18:09)
[2016-12-17 05:48] LABS: INR 1.52
[2016-12-17 06:00] VITALS: BP 139/79
[2016-12-17] MEDS: PANTOPRAZOLE 40MG TAB (PROTONIX) PO SCH (08:46)
[2016-12-17] MEDS: DULoxetine 30 MG CAP (CYMBALTA) PO SCH (08:46)
[2016-12-17] MEDS: SENOKOT S TAB PO SCH ×2 (08:47→21:13)
[2016-12-17] MEDS: cloNIDine 0.1 MG TAB PO SCH ×3 (08:47→21:15)
[2016-12-17] MEDS: amLODIPine 5 MG TAB PO SCH (08:47)
[2016-12-17] MEDS: GABAPENTIN 400 MG CAP PO SCH ×3 (08:47→21:13)
[2016-12-17] MEDS: DOCUSATE SODIUM 100 MG CAP PO SCH ×2 (08:47→21:13)
[2016-12-17] MEDS: CARVedilol 3.125 MG TAB PO SCH ×2 (08:47→21:14)
[2016-12-17] MEDS: oxyCODONE 20 MG CR TAB PO SCH ×2 (08:48→21:16)
[2016-12-17] MEDS: HEPARIN DRIP 25,000 UNITS in APPROPRIATE DILUENT 1 EA IV SCH ×2 (11:51→23:05)
[2016-12-17 14:00] VITALS: BP 141/74
--- NOTE | 2016-12-17 14:06 | IPNPDOC ---
Support Merchandiser Progress Note DATE OF SERVICE: 12/17/16 DATE OF ADMISSION: Dec 15, 2016 at 16:43 INPATIENT REHABILITATION ADMISSION DAY: #3 SUBJECTIVE: Patient is a 56-year-old white male with right BKA and healing femoral-tibial arterial graft. Patient admitted for initial pre-prosthetic mobility and ADL training with physical and occupational therapy to facilitate relative safe return to home. This morning patient seen laying in bed but having his right knee bent and showing some increase in extension lag. Patient re-shown how to use a pillow to support BKA stump and allow gravity to help with stretching the knee into greater extension and encouraged to do this all the time he is in bed. However patient is encouraged to be up out of bed in chair and focus on positioning with knee extension. Patient does report ongoing pain but overall had reasonable pain control and slept well. No other complaints. ALLERGIES: See Below MEDICATIONS: Reviewed, see below. OBJECTIVE: VITAL SIGNS: Please see below. PHYSICAL EXAMINATION: GENERAL: Overweight middle-age white male right BKA and dressings are clean without drainage. Patient approximately 15-20 knee flexion. He appears to be in very mild musculoskeletal distress. HEENT: Normocephalic/atraumatic. CARDIOVASCULAR: Regular rate and rhythm with normal S1-S2. 2/4 bilateral radial pulses. LUNGS: All redd clear to auscultation. ABDOMEN: Benign, obese, nontender with normal bowel sounds in all quadrants. NEUROLOGICAL: Patient alert and oriented 4. Speech is clear, coherent and appropriate. Affect in general is pleasant and cooperative, but he has a little anxious and does have a little flattening. Bilateral upper extremities or sensory motor intact. Left lower extremity sensory motor intact except for decreased sensorium from the ankle distally to light touch and vibration. Good right hip movement and motor but some guarding of movement and right knee with a fair amount of motor guarding. I am able to get to -15 degrees of full extention on PROM. SKIN: Healing grafts and amputation incision, that are clean, without inflammation, but some spot sanguinous drainage. LABORATORY DATA: Reviewed. Please see below. MICROBIOLOGY: Please see below. IMAGING: No new imaging. DVT prophylaxis ordered?: Left lower extremity ISA hose, Heparin drip till Coumadin therapeutic. ASSESSMENT AND PLAN: 1. Rehabilitation of right BKA: At this time very important to get patient to focus on proper positioning and stretching as well as tapping and sensory integration of the residual limb. Patient starting with physical occupational therapies today. We need to try and keep patient up and active for most of the day but most importantly right lower extremity positioning.He is also not very consistent with following through with training or putting out the best effort. Lots of External Locus of Control noted in his discussions of his problems. Currently, my main concern is development of Right knee contracture if he does not adhere to keeping it in good position. A FloThru Knee Orthosis to protect the residual limb and maintain extension should be here on Tuesday. Anticipated D /C Date is 12/[address] Gary's note appreciated and will review plan to have patient at time of discharge from [facility] to better transition into outpatient psychiatric support. 2. Pain management: Patient appears to be receiving reasonable analgesia as he appears very comfortable without any sedation or factors working against his ability to participate in therapy. However I do feel patient is at risk of over self-limiting of the limb. 3. DVT prophylaxis: INR 1.52 so I will have patient on Coumadin 8.0 mg at 1700 hrs. today and recheck INR tomorrow. For now APTT is 60 and heparin being adjusted accordingly. However best treatment for then should've clots will be getting patient up active and moving bilateral lower extremities. 4. Moderate anemia: H&H is relatively stable and we will recheck on [place] and Tuesday We'll continue to monitor heart rate and blood pressure and periodic CBCs. 5. Elevated white count: Recheck on Tomorrow and Tuesday. TIME SPENT: Chart Review, examination and documentation required greater than 25 minutes. Allergies Coded Allergies: No Known Drug Allergy (Verified Allergy, Unknown, 07/23/16) Vital Signs Vital Signs Date Time Temp Pulse Resp B/P (MAP) Pulse Ox O2 Delivery O2 Flow Rate FiO2 12/17/16 13:00 18 12/17/16 08:47 139/79 12/17/16 06:00 98.0 105 99 Room Air Laboratory Data Labs 24H Laboratory Tests 2 12/16/16 16:58: Activated Partial Thromboplast Time 117.8H 12/16/16 22:54: Activated Partial Thromboplast Time 76.5H 12/17/16 05:21: Activated Partial Thromboplast Time 102.7H, Prothrombin Time 18.7H, Prothromb Time International Ratio 1.52 12/17/16 11:15: Activated Partial Thromboplast Time 60.0H Current Medications Current Medications Current Medications Acetaminophen (Tylenol Tab) 650 mg Q6HP PRN PO PAIN / FEVER Last administered on 12/16/16 16:17; Start 12/15/16 at 15:45; Stop 01/14/17 at 15:44 Albuterol Sulfate (Proventil, Ventolin Hfa) 2 puff Q6HP PRN INH SHORTNESS OF BREATH; Start 12/15/16 at 16:00; Stop 01/14/17 at 15:59 Amlodipine Besylate (Norvasc) 5 mg DAILY PO Last administered on 12/17/16 08:47 ; Start 12/16/16 at 09:00; Stop 01/15/17 at 08:59 Atorvastatin Calcium (Lipitor) 20 mg QHS PO Last administered on 12/16/16 20:40 ; Start 12/15/16 at 21:00; Stop 01/14/17 at 20:59 Bisacodyl (Dulcolax Suppository) 10 mg DAILYPRN PRN [place] CONSTIPATION; Start 12/15 at 15:45; Stop 01/14/17 at 15:44 Carvedilol (COReg) 3.125 mg BID PO Last administered on 12/17/16 08:47; Start 12/15/16 at 21:00; Stop 01/14/17 at 20:59 Clonazepam (KlonoPIN) 0.5 mg BID PRN PO ANXIETY Last administered on 12/16/16 00:37; Start 12/15/16 at 16:00; Stop 12/22/16 at 15:59 Clonidine HCl (Catapres) 0.1 mg TID PO Last administered on 12/17/16 08:47; Start 12/15/16 at 21:00; Stop 01/14/17 at 20:59 Docusate Sodium (Colace) 100 mg BID PO Last administered on 12/17/16 08:47; Start 12/15/16 at 21:00; Stop 01/14/17 at 20:59 Duloxetine HCl (Cymbalta) 30 mg DAILY PO Last administered on 12/17/16 08:46; Start 12/16/16 at 09:00; Stop 01/15/17 at 08:59 Gabapentin (Neurontin) 800 mg TID PO Last administered on 12/17/16 08:47; Start 12/15/16 at 21:00; Stop 01/14/17 at 20:59 Heparin Sodium (Heparin (Flush)) 200 units PICC IV Last administered on 05:39; Start 12/16/16 at 06:00; Stop 01/15/17 at 05:59 Heparin Sodium (Porcine) (Heparin) ASDIRECTED PRN IV SEE LABEL COMMENTS; Start 12/15/16 at 17:00; Stop 12/20/16 at 16:59 Heparin Sodium (Porcine) 82888 units/IV Miscellaneous Supplies 250 ml @ 0 mls/ hr Q0M IV Last administered on 12/17/16 11:51; Start 12/15/16 at 17:53; Stop 03/29 at 17:52 Magnesium Hydroxide (Milk Of Magnesia) 30 ml BIDP PRN PO CONSTIPATION; Start at 15:45; Stop 01/14/17 at 15:44 Non-Formulary Medication (Heparin Iv Rate Change Documentation ml/ Hr) ASDIRECTED XX Last administered on 12/17/16 13:02; Start 12/15/16 at 17:00; Stop 12/20/16 at 16:59 Oxycodone HCl (OxyCONTIN) 20 mg BID PO Last administered on 12/17/16 08:48; Start 12/15/16 at 21:00; Stop 12/22/16 at 20:59 Oxycodone HCl (Roxicodone, Oxyir) 5 mg Q4HP PRN PO PAIN SCALE 6-10 Last administered on 12/17/16 12:22; Start 12/15/16 at 16:00; Stop 12/22/16 at 15:59 Pantoprazole Sodium (Protonix) 40 mg DAILY PO Last administered on 12/17/16 08: 46; Start 12/16/16 at 09:00; Stop 01/15/17 at 08:59 Senna/Docusate Sodium (Senokot S) 1 tab BID PO Last administered on 12/17/16 08 :47; Start 12/15/16 at 21:00; Stop 01/14/17 at 20:59 Sodium Biphosphate/ Sodium Phosphate (Fleet Enema) 1 ea DAILYPRN PRN [place] CONSTIPATION; Start 12/15/16 at 15:45; Stop 01/14/17 at 15:44 Sodium Chloride (Saline Lock Flush) 10 ml ASDIRECTED PRN IV SEE LABEL COMMENTS ; Start 12/15/16 at 18:15; Stop 01/14/17 at 18:14 Sodium Chloride (Saline Lock Flush) 10 ml PICC IV Last administered on 05:39; Start 12/16/16 at 06:00; Stop 01/15/17 at 05:59 Trazodone HCl (Desyrel) 100 mg QHS PO Last administered on 12/15/16 20:18; Start 12/15/16 at 21:00; Stop 12/16/16 at 16:18; Status DC Trazodone HCl (Desyrel) 150 mg QHS PO Last administered on 12/16/16 20:40; Start 12/16/16 at 21:00; Stop 01/15/17 at 20:59 Warfarin Sodium (Coumadin) 8 mg DAILY@17 PO ; Start 12/16/16 at 17:00; Stop 12/23 at 16:59; Status Cancel Warfarin Sodium (Coumadin) 8 mg DAILY@17 PO ; Start 12/17/16 at 17:00; Stop 12/24 at 16:59 Zolpidem Tartrate (Ambien) 5 mg QHSP PRN PO INSOMNIA; Start 12/15/16 at 16:00; Stop 12/22/16 at 15:59 MELISSA HARTLEY MD Dec 17, 2016 14:06
[2016-12-17] MEDS: WARFARIN SOD 4 MG TAB PO SCH (16:40)
[2016-12-17] MEDS: ACETAMINOPHEN TAB 650MG DOSE (2X325MG) PO PRN (18:53)
[2016-12-17 20:00] VITALS: BP 125/80
[2016-12-17] MEDS: traZODone 50 MG TAB PO SCH (21:13)
[2016-12-17] MEDS: ATORVASTATIN 20 MG TAB PO SCH (21:13)
[2016-12-18] MEDS: oxyCODONE 5MG TAB PO PRN ×2 (03:18→11:28)
[2016-12-18 05:43] LABS: INR 1.64
[2016-12-18 06:00] VITALS: BP 136/70
[2016-12-18] MEDS: SODIUM CHLORIDE 0.9% INJ 10 ML SYR IV SCH ×2 (06:25→17:22)
[2016-12-18] MEDS: ACETAMINOPHEN TAB 650MG DOSE (2X325MG) PO PRN ×3 (06:30→23:29)
[2016-12-18] MEDS: DULoxetine 30 MG CAP (CYMBALTA) PO SCH (08:53)
[2016-12-18] MEDS: GABAPENTIN 400 MG CAP PO SCH ×3 (08:53→20:45)
[2016-12-18] MEDS: PANTOPRAZOLE 40MG TAB (PROTONIX) PO SCH (08:53)
[2016-12-18] MEDS: CARVedilol 3.125 MG TAB PO SCH ×2 (08:54→20:46)
[2016-12-18] MEDS: DOCUSATE SODIUM 100 MG CAP PO SCH ×2 (08:54→20:46)
[2016-12-18] MEDS: SENOKOT S TAB PO SCH ×2 (08:54→20:46)
[2016-12-18] MEDS: cloNIDine 0.1 MG TAB PO SCH ×3 (08:54→20:46)
[2016-12-18] MEDS: oxyCODONE 20 MG CR TAB PO SCH ×2 (08:54→20:45)
[2016-12-18] MEDS: amLODIPine 5 MG TAB PO SCH (08:55)
[2016-12-18] MEDS: HEPARIN DRIP 25,000 UNITS in APPROPRIATE DILUENT 1 EA IV SCH (11:31)
[2016-12-18 14:00] VITALS: BP 134/78
[2016-12-18] MEDS: WARFARIN SOD 4 MG TAB PO SCH (16:11)
[2016-12-18 17:35] LABS: MEAN CORPUSCULAR HEMOGLOBIN 28.6 pg (27.0-33.0); MEAN CORPUSCULAR HGB CONC 31.7 g/dl (32.0-36.5); MEAN CORPUSCULAR VOLUME 90.2 fl (80.0-96.0); RED CELL DISTRIBUTION WIDTH 14.9 % (11.5-14.5)
[2016-12-18 20:00] VITALS: BP 136/76
[2016-12-18] MEDS: traZODone 50 MG TAB PO SCH (20:45)
[2016-12-18] MEDS: ATORVASTATIN 20 MG TAB PO SCH (20:47)
[2016-12-19] MEDS: HEPARIN DRIP 25,000 UNITS in APPROPRIATE DILUENT 1 EA IV SCH ×2 (00:10→14:56)
[2016-12-19] MEDS: oxyCODONE 5MG TAB PO PRN ×5 (00:33→17:54)
[2016-12-19] MEDS: SODIUM CHLORIDE 0.9% INJ 10 ML SYR IV SCH ×2 (04:38→17:55)
[2016-12-19 06:00] VITALS: BP 137/78
[2016-12-19 07:00] LABS: INR 1.93
[2016-12-19] MEDS: DULoxetine 30 MG CAP (CYMBALTA) PO SCH (08:26)
[2016-12-19] MEDS: GABAPENTIN 400 MG CAP PO SCH ×3 (08:26→20:51)
[2016-12-19] MEDS: oxyCODONE 20 MG CR TAB PO SCH (08:26)
[2016-12-19] MEDS: SENOKOT S TAB PO SCH ×2 (08:26→20:51)
[2016-12-19] MEDS: PANTOPRAZOLE 40MG TAB (PROTONIX) PO SCH (08:26)
[2016-12-19] MEDS: DOCUSATE SODIUM 100 MG CAP PO SCH ×2 (08:26→20:51)
[2016-12-19] MEDS: CARVedilol 3.125 MG TAB PO SCH ×2 (08:27→20:51)
[2016-12-19] MEDS: cloNIDine 0.1 MG TAB PO SCH ×3 (08:27→20:51)
[2016-12-19] MEDS: amLODIPine 5 MG TAB PO SCH (08:27)
[2016-12-19] MEDS: ACETAMINOPHEN TAB 650MG DOSE (2X325MG) PO PRN (11:25)
[2016-12-19 14:00] VITALS: BP 135/76
[2016-12-19] MEDS: WARFARIN SOD 4 MG TAB PO SCH (16:52)
--- NOTE | 2016-12-19 19:18 | IPNPDOC ---
Date Seen The patient was seen on 12/19/16. Progress Note SUBJECTIVE: Patient is a 56-year-old white male with right below knee amputation. Patient states his pain is still poorly controlled and he has significant pain especially when he is active. Denies any chest pain or shortness of breath. He has been aggressively undergoing physical therapy with good results. OBJECTIVE PHYSICAL EXAMINATION: VITAL SIGNS: Please see below. GENERAL: Awake alert resting in bed in no apparent distress. HEENT: Normal CARDIOVASCULAR: Regular rate and rhythm no murmurs rubs or gallops. RESPIRATORY: Her to auscultation bilaterally. ABDOMINAL: Soft nontender nondistended with no palpable pulsatile masses EXTREMITIES: The right groin incision and the incision from the right below knee amputation are healing well with only minimal drainage noted. NEUROLOGICAL: Awake alert oriented x3 with no focal deficits PSYCHOLOGICAL: Mood is stable denies any suicidal ideation at this time. LABORATORY DATA: Please see below. MICROBIOLOGY: Please see below. DVT prophylaxis ordered?: Patient on Coumadin and heparin drip ASSESSMENT AND PLAN: This is a 56-year-old white male with right below knee amputation and significant pain in his right lower extremity.. PROBLEMS: 1. right below-knee amputation: Stump is healing well incisions are without infection. 2. right lower extremity pain: Patient will have an increase in his OxyContin from 20 mg by mouth twice a day to 30 mg by mouth twice a day and will continue with 5 mg of Roxicodone by mouth every 4 hours when necessary breakthrough pain. VS, I&O, 24H, Fishbone Vital Signs/I&O Vital Signs Date Time Temp Pulse Resp B/P (MAP) Pulse Ox O2 Delivery O2 Flow Rate FiO2 12/19/16 18:24 18 12/19/16 16:52 155/81 12/19/16 14:00 97.6 98 100 Room Air I&O- Last 24 Hours up to 6 AM 12/19/16 06:00 Intake Total 1560 ml Output Total 400 ml Balance 1160 ml Laboratory Data 24H LABS Laboratory Tests 2 12/19/16 06:43: Prothrombin Time 22.7H, Prothromb Time International Ratio 1.93, Activated Partial Thromboplast Time 127.6*H 12/19/16 14:19: Activated Partial Thromboplast Time 68.7H Aquilino King MD Dec 19, 2016 19:18
[2016-12-19 20:21] VITALS: BP 115/62
[2016-12-19] MEDS: oxyCODONE 15 MG CR TAB PO SCH (20:50)
[2016-12-19] MEDS: traZODone 50 MG TAB PO SCH (20:50)
[2016-12-19] MEDS: ATORVASTATIN 20 MG TAB PO SCH (20:51)
[2016-12-20] MEDS: oxyCODONE 5MG TAB PO PRN ×4 (00:14→16:49)
[2016-12-20] MEDS: clonazePAM 0.5 MG TAB PO PRN ×2 (00:23→20:32)
[2016-12-20] MEDS: SODIUM CHLORIDE 0.9% INJ 10 ML SYR IV SCH ×2 (05:02→17:53)
[2016-12-20 06:00] VITALS: BP 118/71
[2016-12-20 06:33] LABS: MEAN CORPUSCULAR HEMOGLOBIN 28.8 pg (27.0-33.0); MEAN CORPUSCULAR HGB CONC 31.7 g/dl (32.0-36.5); MEAN CORPUSCULAR VOLUME 90.8 fl (80.0-96.0); RED CELL DISTRIBUTION WIDTH 15.3 % (11.5-14.5); WHITE BLOOD COUNT 11.1 K/mm3 (4.0-10.0)
[2016-12-20 06:37] LABS: INR 1.78
[2016-12-20 06:55] LABS: ANION GAP 7 MEQ/L (8-16); BLOOD UREA NITROGEN 19 MG/DL (7-18); CALCIUM LEVEL 9.1 MG/DL (8.5-10.1); CARBON DIOXIDE LEVEL 27 MEQ/L (21-32); CHLORIDE LEVEL 101 MEQ/L (98-107); CREATININE FOR GFR 1.12 MG/DL (0.70-1.30); GLOMERULAR FILTRATION RATE > 60.0 (>56); GLUCOSE, FASTING 107 MG/DL (70-105); SODIUM LEVEL 135 MEQ/L (136-145)
[2016-12-20] MEDS: HEPARIN DRIP 25,000 UNITS in APPROPRIATE DILUENT 1 EA IV SCH ×2 (07:22→14:17)
[2016-12-20] MEDS: SENOKOT S TAB PO SCH ×2 (09:00→20:31)
[2016-12-20] MEDS: DULoxetine 30 MG CAP (CYMBALTA) PO SCH (09:24)
[2016-12-20] MEDS: PANTOPRAZOLE 40MG TAB (PROTONIX) PO SCH (09:24)
[2016-12-20] MEDS: cloNIDine 0.1 MG TAB PO SCH ×3 (09:24→20:31)
[2016-12-20] MEDS: amLODIPine 5 MG TAB PO SCH (09:25)
[2016-12-20] MEDS: DOCUSATE SODIUM 100 MG CAP PO SCH ×2 (09:25→20:31)
[2016-12-20] MEDS: CARVedilol 3.125 MG TAB PO SCH ×2 (09:25→20:31)
[2016-12-20] MEDS: GABAPENTIN 400 MG CAP PO SCH ×3 (09:25→20:31)
[2016-12-20] MEDS: oxyCODONE 15 MG CR TAB PO SCH ×2 (09:27→20:30)
--- NOTE | 2016-12-20 12:10 | IPNPDOC ---
Date Seen The patient was seen on 12/20/16. Progress Note REASON FOR CONSULTATION: Medical Management ATTENDING: Dr. Kong Hernández HPI: 56year oldM with a past medical history significant for PVD S/P Rt BKA as per Dr King 12/09/16 transferred to ARU as per Dr Mcpherson 12/15/16. No acute medical complaints today. Denies any fevers, chills, weakness, fatigue , Headache, Chest Pain, Shortness of breath, cough, palpitations, abdominal pain , N/V/D or changes in bowel or bladder habits. PMHx: HTN HLD PVD H/O DVT/PE Fe def anemia depression anxiety H/O TIA CAD Asthma PSHX: S/P Rt BKA 12/09/16 Vascular PTCA/Stent RLE 2016 Cardiac stent CABG x 1/bovine tricuspid VR 2015. H/O Colon Ca/S/P colon resection. Rt knee surgery deviated septum repair PE: GEN: 56yoM, appears stated age. Well-nourished, well developed. No acute distress. Alert and oriented x 3. Pleasant, interactive. HEENT: Normocephalic, atraumatic. Sclera are nonicteric. Conjunctiva without injection. Nose midline. Nasal turbinates without bogginess. No facial asymmetry. Moist mucous membranes. Dentition fair. Pharynx pink and moist, no cobblestoning. Neck supple, trachea midline. No lymphadenopathy or thyromegaly appreciated. CHEST: Regular rate and rhythm, +S1, +S2 LUNGS: Clear to auscultation bilaterally. No wheezes, rales, or rhonchi. Breathing appears symmetric and easy. Patient is speaking in full sentences. No accessory muscle use. ABD: Round, soft, non-tender, non-distended. +Bowel sounds throughout. No rebound or guarding. No costovertebral angle tenderness. EXT: Rt BKA, dressing intact. SKIN: [place], dry, warm. No rashes. NEURO: Alert and oriented x 3. Cranial nerves III-XII are intact. No focal deficits appreciated. A&P: 56year oldM with a past medical history significant for PVD S/P Rt BKA as per Dr King 12/09/16 transferred to ARU as per Dr Mcpherson 12/15/16. 1. PVD/S/P Rt BKA. Following with Dr King. Management as per ARU/Dr Mcpherson. PT/OT as per Dr Mcpherson. Pain control as per Dr Mcpherson/Dr King. Bowel care as per ARU. DVT prophylaxis. Heparin IV as per Dr Mcpherson. Coumadin 8 mg daily. INR 1.78. 2. CAD/CABG. Coreg. 3. Depression/Anxiety. Management as per Psychiatry. 4. H/O DVT/PE. IV heparin, Coumadin as above. 5. post operative anemia. Hgb 9.2. 6. HLD. Lipitor. 7. HTN. Norvasc, Coreg, Catapres. BP controlled. VS, I&O, 24H, Fishbone Vital Signs/I&O Vital Signs Date Time Temp Pulse Resp B/P (MAP) Pulse Ox O2 Delivery O2 Flow Rate FiO2 12/20/16 09:27 20 Room Air 12/20/16 09:25 104 132/78 12/20/16 06:00 98.6 100 I&O- Last 24 Hours up to 6 AM 12/20/16 06:00 Intake Total 1020 ml Output Total 1675 ml Balance -655 ml Laboratory Data 24H LABS Laboratory Tests 2 12/19/16 14:19: Activated Partial Thromboplast Time 68.7H 12/19/16 20:09: Activated Partial Thromboplast Time 72.7H 12/20/16 06:16: Activated Partial Thromboplast Time 68.3H, Prothrombin Time 21.3H, Prothromb Time International Ratio 1.78, Anion Gap 7L, Glomerular Filtration Rate > 60.0, Blood Urea Nitrogen 19H, Creatinine 1.12, Sodium Level 135L, Potassium Level 4.0 , Chloride Level 101, Carbon Dioxide Level 27, Calcium Level 9.1 12/20/16 11:26: Activated Partial Thromboplast Time 62.7H CBC/BMP Laboratory Tests 12/20/16 06:16 Red Blood Count 3.20 L, Mean Corpuscular Volume 90.8, Mean Corpuscular Hemoglobin 28.8, Mean Corpuscular Hemoglobin Concent 31.7 L, Red Cell Distribution Width 15.3 H, Calcium Level 9.1 Lolis Ford Dec 20, 2016 12:10
[2016-12-20 14:00] VITALS: BP 123/64
[2016-12-20] MEDS: ACETAMINOPHEN TAB 650MG DOSE (2X325MG) PO PRN ×2 (14:18→20:31)
--- NOTE | 2016-12-20 15:39 | IPNPDOC ---
Senior Manager [facility] Progress Note DATE OF SERVICE: 12/20/16 DATE OF ADMISSION: Dec 15, 2016 at 16:43 INPATIENT REHABILITATION ADMISSION DAY: #6 SUBJECTIVE: Patient is a 56-year-old white male with right BKA and healing femoral-tibial arterial graft. Patient admitted for initial pre-prosthetic mobility and ADL training with physical and occupational therapy to facilitate relative safe return to home. Patient is encouraged to be up out of bed in chair and focus on positioning with knee extension. Patient does report ongoing pain but overall had reasonable pain control and slept well. No other complaints. ALLERGIES: See Below MEDICATIONS: Reviewed, see below. OBJECTIVE: VITAL SIGNS: Please see below. PHYSICAL EXAMINATION: GENERAL: Overweight middle-age white male right BKA and dressings are clean without drainage. He appears to be in very mild musculoskeletal distress. HEENT: Normocephalic/atraumatic. CARDIOVASCULAR: Regular rate and rhythm with normal S1-S2. 2/4 bilateral radial pulses. LUNGS: All redd clear to auscultation. ABDOMEN: Benign, obese, nontender with normal bowel sounds in all quadrants. NEUROLOGICAL: Patient alert and oriented 4. Speech is clear, coherent and appropriate. Affect in general is pleasant and cooperative, but he has a little anxious and does have a little flattening. Bilateral upper extremities or sensory motor intact. Left lower extremity sensory motor intact except for decreased sensorium from the ankle distally to light touch and vibration. Good right hip movement and motor but some guarding of movement and right knee with a fair amount of motor guarding. Patient now at -15 to 20degrees of Knee extension at rest. SKIN: Healing grafts and amputation incision, that are clean, without inflammation, but some spot sanguinous drainage. LABORATORY DATA: Reviewed. Please see below. MICROBIOLOGY: Please see below. IMAGING: No new imaging. DVT prophylaxis ordered?: Left lower extremity ISA hose, Heparin drip till Coumadin therapeutic, but at 1.78 today. ASSESSMENT AND PLAN: 1. Rehabilitation of right BKA: At this time very important to get patient to focus on proper positioning and stretching as well as tapping and sensory integration of the residual limb. Patient starting with physical occupational therapies today. We need to try and keep patient up and active for most of the day but most importantly right lower extremity positioning.He is also not very consistent with following through with training or putting out the best effort. Lots of External Locus of Control noted in his discussions of his problems. Currently, my main concern is development of Right knee contracture if he does not adhere to keeping it in good position. A FloThru Knee Orthosis to protect the residual limb and maintain extension should be here on Tuesday. Anticipated D /C Date is 12/29 for now. Patient however appears to be in less pain and more interactive with therapy with less knee flexion. 2. Pain management: Patient appears to be receiving reasonable analgesia as he appears very comfortable without any sedation or factors working against his ability to participate in therapy. However I do feel patient is at risk of over self-limiting of the limb, but since Tuesday he has regained some of the Knee Extension. His FloThru Orthosis should arrive today. I have made Dr. King aware of this. 3. DVT prophylaxis: INR 1.78 after being 1.9 yesterday. Patient on Coumadin 8.0 mg at 1700 hrs. today and recheck INR tomorrow. For now APTT is 60 and heparin being adjusted accordingly. However best treatment for then should've clots will be getting patient up active and moving bilateral lower extremities. Which he is starting to do more of. 4. Moderate anemia: H&H is relatively stable. We'll continue to monitor heart rate and blood pressure and periodic CBCs. 5. Elevated white count: Stable at 11.1K with no elevated fevers. TIME SPENT: Chart Review, examination and documentation required greater than 25 minutes. Allergies Coded Allergies: No Known Drug Allergy (Verified Allergy, Unknown, 07/23/16) Vital Signs Vital Signs Date Time Temp Pulse Resp B/P (MAP) Pulse Ox O2 Delivery O2 Flow Rate FiO2 12/20/16 14:00 97.2 102 18 123/64 (83) 95 Room Air Laboratory Data CBC/BMP Laboratory Tests 12/20/16 06:16 Red Blood Count 3.20 L, Mean Corpuscular Volume 90.8, Mean Corpuscular Hemoglobin 28.8, Mean Corpuscular Hemoglobin Concent 31.7 L, Red Cell Distribution Width 15.3 H, Calcium Level 9.1 Labs 24H Laboratory Tests 2 12/19/16 20:09: Activated Partial Thromboplast Time 72.7H 12/20/16 06:16: Activated Partial Thromboplast Time 68.3H, Prothrombin Time 21.3H, Prothromb Time International Ratio 1.78, Anion Gap 7L, Glomerular Filtration Rate > 60.0, Blood Urea Nitrogen 19H, Creatinine 1.12, Sodium Level 135L, Potassium Level 4.0 , Chloride Level 101, Carbon Dioxide Level 27, Calcium Level 9.1 12/20/16 11:26: Activated Partial Thromboplast Time 62.7H Current Medications Current Medications Current Medications Acetaminophen (Tylenol Tab) 650 mg Q6HP PRN PO PAIN / FEVER Last administered on 12/20/16 14:18; Start 12/15/16 at 15:45; Stop 01/14/17 at 15:44 Albuterol Sulfate (Proventil, Ventolin Hfa) 2 puff Q6HP PRN INH SHORTNESS OF BREATH; Start 12/15/16 at 16:00; Stop 01/14/17 at 15:59 Amlodipine Besylate (Norvasc) 5 mg DAILY PO Last administered on 12/20/16 09: 25; Start 12/16/16 at 09:00; Stop 01/15/17 at 08:59 Atorvastatin Calcium (Lipitor) 20 mg QHS PO Last administered on 12/19/16 20:51 ; Start 12/15/16 at 21:00; Stop 01/14/17 at 20:59 Bisacodyl (Dulcolax Suppository) [address] CONSTIPATION; Start 12/15 at 15:45; Stop 01/14/17 at 15:44 Carvedilol (COReg) 3.125 mg BID PO Last administered on 12/20/16 09:25; Start 12/15/16 at 21:00; Stop 01/14/17 at 20:59 Clonazepam (KlonoPIN) 0.5 mg BID PRN PO ANXIETY Last administered on 12/20/16 00:23; Start 12/15/16 at 16:00; Stop 12/29/16 at 23:55 Clonidine HCl (Catapres) 0.1 mg TID PO Last administered on 12/20/16 09:24; Start 12/15/16 at 21:00; Stop 01/14/17 at 20:59 Docusate Sodium (Colace) 100 mg BID PO Last administered on 12/20/16 09:25; Start 12/15/16 at 21:00; Stop 01/14/17 at 20:59 Duloxetine HCl (Cymbalta) 30 mg DAILY PO Last administered on 12/20/16 09:24; Start 12/16/16 at 09:00; Stop 01/15/17 at 08:59 Gabapentin (Neurontin) 800 mg TID PO Last administered on 12/20/16 09:25; Start 12/15/16 at 21:00; Stop 01/14/17 at 20:59 Heparin Sodium (Heparin (Flush)) 200 units PICC IV Last administered on 05:02; Start 12/16/16 at 06:00; Stop 01/15/17 at 05:59 Heparin Sodium (Porcine) (Heparin) ASDIRECTED PRN IV SEE LABEL COMMENTS; Start 12/15/16 at 17:00; Stop 12/20/16 at 16:59 Heparin Sodium (Porcine) 51027 units/IV Miscellaneous Supplies 250 ml @ 0 mls/ hr Q0M IV Last administered on 12/20/16 14:17; Start 12/15/16 at 17:53; Stop at 17:52 Magnesium Hydroxide (Milk Of Magnesia) 30 ml BIDP PRN PO CONSTIPATION; Start at 15:45; Stop 01/14/17 at 15:44 Non-Formulary Medication (Heparin Iv Rate Change Documentation ml/ Hr) ASDIRECTED XX Last administered on 12/19/16 09:29; Start 12/15/16 at 17:00; Stop 12/20/16 at 16:59 Oxycodone HCl (OxyCONTIN) 20 mg BID PO Last administered on 12/19/16 08:26; Start 12/15/16 at 21:00; Stop 12/19/16 at 19:12; Status DC Oxycodone HCl (OxyCONTIN) 30 mg BID PO Last administered on 12/20/16 09:27; Start 12/19/16 at 21:00; Stop 12/26/16 at 20:59 Oxycodone HCl (Roxicodone, Oxyir) 5 mg Q4HP PRN PO PAIN SCALE 6-10 Last administered on 12/20/16 12:32; Start 12/15/16 at 16:00; Stop 12/29/16 at 23:55 Pantoprazole Sodium (Protonix) 40 mg DAILY PO Last administered on 12/20/16 09 :24; Start 12/16/16 at 09:00; Stop 01/15/17 at 08:59 Senna/Docusate Sodium (Senokot S) 1 tab BID PO Last administered on 12/19/16 20 :51; Start 12/15/16 at 21:00; Stop 01/14/17 at 20:59 Sodium Biphosphate/ Sodium Phosphate (Fleet Enema) [address] CONSTIPATION; Start 12/15/16 at 15:45; Stop 01/14/17 at 15:44 Sodium Chloride (Saline Lock Flush) 10 ml ASDIRECTED PRN IV SEE LABEL COMMENTS ; Start 12/15/16 at 18:15; Stop 01/14/17 at 18:14 Sodium Chloride (Saline Lock Flush) 10 ml PICC IV Last administered on 05:02; Start 12/16/16 at 06:00; Stop 01/15/17 at 05:59 Trazodone HCl (Desyrel) 100 mg QHS PO Last administered on 12/15/16 20:18; Start 12/15/16 at 21:00; Stop 12/16/16 at 16:18; Status DC Trazodone HCl (Desyrel) 150 mg QHS PO Last administered on 12/19/16 20:50; Start 12/16/16 at 21:00; Stop 01/15/17 at 20:59 Warfarin Sodium (Coumadin) 8 mg DAILY@17 PO ; Start 12/16/16 at 17:00; Stop 12/23 at 16:59; Status Cancel Warfarin Sodium (Coumadin) 8 mg DAILY@17 PO Last administered on 12/19/16 16:52 ; Start 12/17/16 at 17:00; Stop 12/24/16 at 16:59 Zolpidem Tartrate (Ambien) 5 mg QHSP PRN PO INSOMNIA; Start 12/15/16 at 16:00; Stop 12/29/16 at 23:55 MELISSA HARTLEY MD Dec 20, 2016 15:39
[2016-12-20] MEDS: WARFARIN SOD 4 MG TAB PO SCH (16:48)
[2016-12-20 20:00] VITALS: BP 158/76
[2016-12-20] MEDS: ATORVASTATIN 20 MG TAB PO SCH (20:31)
[2016-12-20] MEDS: traZODone 50 MG TAB PO SCH (20:32)
--- NOTE | 2016-12-20 23:59 | IPNPDOC ---
Date Seen The patient was seen on 12/20/16. Progress Note SUBJECTIVE: Patient states pain is improving and under better control. OBJECTIVE PHYSICAL EXAMINATION: VITAL SIGNS: Please see below. GENERAL: Lying in bed in no apparent distress HEENT: Dermal CARDIOVASCULAR: regular rate and rhythm. RESPIRATORY: Clear to auscultation bilaterally. ABDOMINAL: Soft nontender nondistended EXTREMITIES: Right below-knee amputation stump healing well right femoral and below-knee stump amputation incision is healing well. NEUROLOGICAL: Awake alert oriented x2 with no focal deficits PSYCHOLOGICAL: No suicidal ideation. LABORATORY DATA: Please see below. MICROBIOLOGY: Please see below. DVT prophylaxis ordered?: Patient on Coumadin ASSESSMENT AND PLAN: This is a 56-year-old white male with right below knee amputation stump is healing well. PROBLEMS: 1. atherosclerotic arterial occlusive disease: Right below knee amputation stump is healing well pain is better controlled and patient will continue with physical therapy. VS, I&O, 24H, Fishbone Vital Signs/I&O Vital Signs Date Time Temp Pulse Resp B/P (MAP) Pulse Ox O2 Delivery O2 Flow Rate FiO2 12/20/16 20:31 158/76 12/20/16 20:31 99 12/20/16 20:30 18 100 Room Air 12/20/16 20:00 99.4 I&O- Last 24 Hours up to 6 AM 12/20/16 05:59 Intake Total 660 ml Output Total 1675 ml Balance -1015 ml Laboratory Data 24H LABS Laboratory Tests 2 12/20/16 06:16: Prothrombin Time 21.3H, Prothromb Time International Ratio 1.78, Activated Partial Thromboplast Time 68.3H, Anion Gap 7L, Glomerular Filtration Rate > 60.0 , Blood Urea Nitrogen 19H, Creatinine 1.12, Sodium Level 135L, Potassium Level 4.0, Chloride Level 101, Carbon Dioxide Level 27, Calcium Level 9.1 12/20/16 11:26: Activated Partial Thromboplast Time 62.7H 12/20/16 17:23: Activated Partial Thromboplast Time 69.6H CBC/BMP Laboratory Tests 12/20/16 06:16 Red Blood Count 3.20 L, Mean Corpuscular Volume 90.8, Mean Corpuscular Hemoglobin 28.8, Mean Corpuscular Hemoglobin Concent 31.7 L, Red Cell Distribution Width 15.3 H, Calcium Level 9.1 Aquilino King MD Dec 20, 2016 23:59
[2016-12-21] MEDS ORDERED: HEPARIN SOD (PORCINE) 5000 UNITS/ML VIAL IV PRN (01:15)
[2016-12-21] MEDS: HEPARIN DRIP 25,000 UNITS in APPROPRIATE DILUENT 1 EA IV SCH ×2 (01:58→17:07)
[2016-12-21] MEDS: oxyCODONE 5MG TAB PO PRN ×4 (01:59→23:10)
[2016-12-21 06:00] VITALS: BP 133/71
[2016-12-21] MEDS: SODIUM CHLORIDE 0.9% INJ 10 ML SYR IV SCH ×2 (06:17→17:05)
[2016-12-21] MEDS: ACETAMINOPHEN TAB 650MG DOSE (2X325MG) PO PRN (06:26)
[2016-12-21 08:07] LABS: MEAN CORPUSCULAR HEMOGLOBIN 28.2 pg (27.0-33.0); RED CELL DISTRIBUTION WIDTH 15.3 % (11.5-14.5)
[2016-12-21 08:21] LABS: INR 1.85
[2016-12-21] MEDS: CARVedilol 3.125 MG TAB PO SCH ×2 (08:58→20:28)
[2016-12-21] MEDS: PANTOPRAZOLE 40MG TAB (PROTONIX) PO SCH (08:58)
[2016-12-21] MEDS: DOCUSATE SODIUM 100 MG CAP PO SCH ×2 (08:58→20:29)
[2016-12-21] MEDS: DULoxetine 30 MG CAP (CYMBALTA) PO SCH (08:58)
[2016-12-21] MEDS: SENOKOT S TAB PO SCH ×2 (08:58→20:28)
[2016-12-21] MEDS: GABAPENTIN 400 MG CAP PO SCH ×3 (08:58→20:29)
[2016-12-21] MEDS: amLODIPine 5 MG TAB PO SCH (08:59)
[2016-12-21] MEDS: cloNIDine 0.1 MG TAB PO SCH ×3 (09:00→20:29)
[2016-12-21] MEDS: oxyCODONE 15 MG CR TAB PO SCH ×2 (09:00→20:30)
--- NOTE | 2016-12-21 11:58 | IPNPDOC ---
Pile Operator Progress Note DATE OF SERVICE: 12/21/16 DATE OF ADMISSION: Dec 15, 2016 at 16:43 INPATIENT REHABILITATION ADMISSION DAY: #7 SUBJECTIVE: Patient is a 56-year-old white male with right BKA and healing femoral-tibial arterial graft. Patient admitted for initial pre-prosthetic mobility and ADL training with physical and occupational therapy to facilitate relative safe return to home. Patient is encouraged to be up out of bed in chair and focus on positioning with knee extension. Patient does report ongoing pain but overall had reasonable pain control and slept well. No other complaints. ALLERGIES: See Below MEDICATIONS: Reviewed, see below. OBJECTIVE: VITAL SIGNS: Please see below. PHYSICAL EXAMINATION: GENERAL: Overweight middle-age white male right BKA in FloThru Orthotic on RLE. He appears to be in very mild musculoskeletal distress. HEENT: Normocephalic/atraumatic. CARDIOVASCULAR: Regular rate and rhythm with normal S1-S2. 2/4 bilateral radial pulses. LUNGS: All redd clear to auscultation. ABDOMEN: Benign, obese, nontender with normal bowel sounds in all quadrants. NEUROLOGICAL: Patient alert and oriented 4. Speech is clear, coherent and appropriate. Affect in general is pleasant and cooperative, but he does have a little flattening. Bilateral upper extremities or sensory motor intact. Left lower extremity sensory motor intact except for decreased sensorium from the ankle distally to light touch and vibration. Good right hip movement and motor but some guarding of movement and right knee with a fair amount of motor guarding. Patient now at -10 to 15 degrees of Knee extension at rest. Fair ambulation with walker in the hallway today. SKIN: Healing grafts and amputation incision, that are clean, without inflammation, but some spot sanguinous drainage. LABORATORY DATA: Reviewed. Please see below. MICROBIOLOGY: Please see below. IMAGING: No new imaging. DVT prophylaxis ordered?: Left lower extremity ISA hose, Heparin drip till Coumadin therapeutic, but at 1.85 today. ASSESSMENT AND PLAN: 1. Rehabilitation of right BKA: At this time very important to get patient to focus on proper positioning and stretching as well as tapping and sensory integration of the residual limb. Patient starting with physical occupational therapies today. We need to try and keep patient up and active for most of the day but most importantly right lower extremity positioning.He is also not very consistent with following through with training or putting out the best effort. Lots of External Locus of Control noted in his discussions of his problems. Currently, my main concern is development of Right knee contracture if he does not adhere to keeping it in good position. A FloThru Knee Orthosis to protect the residual limb and maintain extension was fitted on Tuesday. Patient however appears to be in less pain and more interactive with therapy with less knee flexion. Rehabilitation Team Rounds: Patient noted to be less anxious and reporting less pain with gaiting of 60 feet with Front Wheeled Walker today and improving bed and transfers, but still some learning deficits. Patient still on pace for Discharge to Home with family for December 29. 2. Pain management: Patient appears to be receiving reasonable analgesia as he appears very comfortable without any sedation or factors working against his ability to participate in therapy. However I do feel patient is at risk of over self-limiting of the limb, but since Tuesday he has regained some of the Knee Extension. His FloThru Orthosis should arrive yesterday. Patient initially very anxious with lots of pain behaviors and complaints, but now comfortable in it with improved knee extension. 3. DVT prophylaxis: INR 1.85. Patient on Coumadin 8.0 mg at 1700 hrs. today and recheck INR tomorrow. Patient nearing end of Heparin drip need. 4. Moderate anemia: H&H is relatively stable at 8.9 & 28.7%. We'll continue to monitor heart rate and blood pressure and periodic CBCs. 5. Elevated white count: Now normal at 10.0K with no elevated temperatures. TIME SPENT: Chart Review, examination and documentation required greater than35 minutes. Allergies Coded Allergies: No Known Drug Allergy (Verified Allergy, Unknown, 07/23/16) Vital Signs Vital Signs Date Time Temp Pulse Resp B/P (MAP) Pulse Ox O2 Delivery O2 Flow Rate FiO2 12/21/16 11:10 18 Room Air 12/21/16 09:00 133/71 12/21/16 06:00 98.8 97 99 Laboratory Data CBC/BMP Laboratory Tests 12/21/16 07:35 Red Blood Count 3.15 L, Mean Corpuscular Volume 91.0, Mean Corpuscular Hemoglobin 28.2, Mean Corpuscular Hemoglobin Concent 31.0 L, Red Cell Distribution Width 15.3 H Labs 24H Laboratory Tests 2 12/20/16 17:23: Activated Partial Thromboplast Time 69.6H 12/21/16 01:20: Activated Partial Thromboplast Time 41.7H 12/21/16 07:35: Activated Partial Thromboplast Time 71.2H, Prothrombin Time 21.9H, Prothromb Time International Ratio 1.85 Current Medications Current Medications Current Medications Acetaminophen (Tylenol Tab) 650 mg Q6HP PRN PO PAIN / FEVER Last administered on 12/21/16 06:26; Start 12/15/16 at 15:45; Stop 01/14/17 at 15:44 Albuterol Sulfate (Proventil, Ventolin Hfa) 2 puff Q6HP PRN INH SHORTNESS OF BREATH; Start 12/15/16 at 16:00; Stop 01/14/17 at 15:59 Amlodipine Besylate (Norvasc) 5 mg DAILY PO Last administered on 12/21/16 08: 59; Start 12/16/16 at 09:00; Stop 01/15/17 at 08:59 Atorvastatin Calcium (Lipitor) 20 mg QHS PO Last administered on 12/20/16 20: 31; Start 12/15/16 at 21:00; Stop 01/14/17 at 20:59 Bisacodyl (Dulcolax Suppository) 10 mg DAILYPRN PRN IN CONSTIPATION; Start 12/15 at 15:45; Stop 01/14/17 at 15:44 Carvedilol (COReg) 3.125 mg BID PO Last administered on 12/21/16 08:58; Start 12/15/16 at 21:00; Stop 01/14/17 at 20:59 Clonazepam (KlonoPIN) 0.5 mg BID PRN PO ANXIETY Last administered on 12/20/16 20:32; Start 12/15/16 at 16:00; Stop 12/29/16 at 23:55 Clonidine HCl (Catapres) 0.1 mg TID PO Last administered on 12/21/16 09:00; Start 12/15/16 at 21:00; Stop 01/14/17 at 20:59 Docusate Sodium (Colace) 100 mg BID PO Last administered on 12/21/16 08:58; Start 12/15/16 at 21:00; Stop 01/14/17 at 20:59 Duloxetine HCl (Cymbalta) 30 mg DAILY PO Last administered on 12/21/16 08:58; Start 12/16/16 at 09:00; Stop 01/15/17 at 08:59 Gabapentin (Neurontin) 800 mg TID PO Last administered on 12/21/16 08:58; Start 12/15/16 at 21:00; Stop 01/14/17 at 20:59 Heparin Sodium (Heparin (Flush)) 200 units PICC IV Last administered on 06:17; Start 12/16/16 at 06:00; Stop 01/15/17 at 05:59 Heparin Sodium (Porcine) (Heparin) ASDIRECTED PRN IV SEE LABEL COMMENTS; Start 12/21/16 at 01:15; Stop 12/26/16 at 01:14 Heparin Sodium (Porcine) (Heparin) ASDIRECTED PRN IV SEE LABEL COMMENTS; Start 12/15/16 at 17:00; Stop 12/20/16 at 16:59; Status DC Heparin Sodium (Porcine) 45870 units/IV Miscellaneous Supplies 250 ml @ 0 mls/ hr Q0M IV Last administered on 12/21/16 01:58; Start 12/21/16 at 01:04; Stop 12/26/16 at 01:03 Heparin Sodium (Porcine) 69006 units/IV Miscellaneous Supplies 250 ml @ 0 mls/ hr Q0M IV Last administered on 12/20/16 14:17; Start 12/15/16 at 17:53; Stop at 17:52; Status DC Magnesium Hydroxide (Milk Of Magnesia) 30 ml BIDP PRN PO CONSTIPATION; Start at 15:45; Stop 01/14/17 at 15:44 Non-Formulary Medication (Heparin Iv Rate Change Documentation ml/ Hr) ASDIRECTED XX ; Start 12/21/16 at 01:15; Stop 12/26/16 at 01:14 Non-Formulary Medication (Heparin Iv Rate Change Documentation ml/ Hr) ASDIRECTED XX Last administered on 12/20/16 15:58; Start 12/15/16 at 17:00; Stop 12/20/16 at 16:59; Status DC Oxycodone HCl (OxyCONTIN) 20 mg BID PO Last administered on 12/19/16 08:26; Start 12/15/16 at 21:00; Stop 12/19/16 at 19:12; Status DC Oxycodone HCl (OxyCONTIN) 30 mg BID PO Last administered on 12/21/16 09:00; Start 12/19/16 at 21:00; Stop 12/26/16 at 20:59 Oxycodone HCl (Roxicodone, Oxyir) 5 mg Q4HP PRN PO PAIN SCALE 6-10 Last administered on 12/21/16 11:10; Start 12/15/16 at 16:00; Stop 12/29/16 at 23:55 Pantoprazole Sodium (Protonix) 40 mg DAILY PO Last administered on 12/21/16 08 :58; Start 12/16/16 at 09:00; Stop 01/15/17 at 08:59 Senna/Docusate Sodium (Senokot S) 1 tab BID PO Last administered on 12/21/16 08:58; Start 12/15/16 at 21:00; Stop 01/14/17 at 20:59 Sodium Biphosphate/ Sodium Phosphate (Fleet Enema) 1 ea DAILYPRN PRN IN CONSTIPATION; Start 12/15/16 at 15:45; Stop 01/14/17 at 15:44 Sodium Chloride (Saline Lock Flush) 10 ml ASDIRECTED PRN IV SEE LABEL COMMENTS ; Start 12/15/16 at 18:15; Stop 01/14/17 at 18:14 Sodium Chloride (Saline Lock Flush) 10 ml PICC IV Last administered on 06:17; Start 12/16/16 at 06:00; Stop 01/15/17 at 05:59 Trazodone HCl (Desyrel) 100 mg QHS PO Last administered on 12/15/16 20:18; Start 12/15/16 at 21:00; Stop 12/16/16 at 16:18; Status DC Trazodone HCl (Desyrel) 150 mg QHS PO Last administered on 12/20/16 20:32; Start 12/16/16 at 21:00; Stop 01/15/17 at 20:59 Warfarin Sodium (Coumadin) 8 mg DAILY@17 PO ; Start 12/16/16 at 17:00; Stop 12/23 at 16:59; Status Cancel Warfarin Sodium (Coumadin) 8 mg DAILY@17 PO Last administered on 12/20/16t 16: 48; Start 12/17/16 at 17:00; Stop 12/24/16 at 16:59 Zolpidem Tartrate (Ambien) 5 mg QHSP PRN PO INSOMNIA; Start 12/15/16 at 16:00; Stop 12/29/16 at 23:55 MELISSA HARTLEY MD Dec 21, 2016 11:58
[2016-12-21 14:00] VITALS: BP 131/81
[2016-12-21] MEDS: WARFARIN SOD 4 MG TAB PO SCH (17:04)
[2016-12-21] MEDS: traZODone 50 MG TAB PO SCH (20:28)
[2016-12-21] MEDS: ATORVASTATIN 20 MG TAB PO SCH (20:30)
[2016-12-21 22:35] VITALS: BP 114/57
[2016-12-22] MEDS: oxyCODONE 5MG TAB PO PRN ×3 (03:49→17:06)
[2016-12-22] MEDS: SODIUM CHLORIDE 0.9% INJ 10 ML SYR IV SCH ×2 (05:24→17:04)
[2016-12-22 05:29] VITALS: BP 101/65
[2016-12-22 07:24] LABS: INR 2.14
[2016-12-22] MEDS: DOCUSATE SODIUM 100 MG CAP PO SCH ×2 (08:26→21:04)
[2016-12-22] MEDS: DULoxetine 30 MG CAP (CYMBALTA) PO SCH (08:26)
[2016-12-22] MEDS: PANTOPRAZOLE 40MG TAB (PROTONIX) PO SCH (08:26)
[2016-12-22] MEDS: amLODIPine 5 MG TAB PO SCH (08:26)
[2016-12-22] MEDS: GABAPENTIN 400 MG CAP PO SCH ×3 (08:27→21:04)
[2016-12-22] MEDS: oxyCODONE 15 MG CR TAB PO SCH ×2 (08:27→21:05)
[2016-12-22] MEDS: CARVedilol 3.125 MG TAB PO SCH ×2 (08:28→21:05)
[2016-12-22] MEDS: SENOKOT S TAB PO SCH ×2 (08:28→21:04)
[2016-12-22 08:30] VITALS: BP 116/66
[2016-12-22] MEDS: cloNIDine 0.1 MG TAB PO SCH ×3 (08:30→21:05)
--- NOTE | 2016-12-22 09:35 | IPNPDOC ---
Date Seen The patient was seen on 12/22/16. Progress Note Subjective: Patient states pain is much better controlled still does have pain in his below knee amputation stump but this is improved significantly. Patient has been very aggressive with his rehabilitation and is doing well. OBJECTIVE PHYSICAL EXAMINATION: VITAL SIGNS: Please see below. GENERAL: Awake alert no apparent distress HEENT: Normal CARDIOVASCULAR: Regular rate and rhythm. RESPIRATORY: Clear to auscultation bilaterally. ABDOMINAL: Soft nontender nondistended EXTREMITIES: Both lower extremity are well-perfused the incisions in the inguinal thigh and below knee amputation stump are healing well. There are darrion in place in the below-knee amputation stump incision. The darrion and the upper thigh and inguinal region were removed on 12/21/2016. NEUROLOGICAL: Awake alert oriented x3 with no focal deficits PSYCHOLOGICAL: Stable no suicidal ideation at this time, mood is much better. LABORATORY DATA: Please see below. MICROBIOLOGY: Please see below. 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 PROBLEMS: 1. atherosclerotic arterial occlusive disease: Patient is status post right below-knee of dictation which is healing well. The patient is doing well in rehabilitation. The patient is therapeutic on his Coumadin and his heparin is DC'd. Patient states his pain is significantly improved and better control. VS, I&O, 24H, Fishbone Vital Signs/I&O Vital Signs Date Time Temp Pulse Resp B/P (MAP) Pulse Ox O2 Delivery O2 Flow Rate FiO2 12/22/16 08:30 116/66 12/22/16 08:28 94 12/22/16 08:27 18 12/22/16 05:29 98.6 96 Room Air I&O- Last 24 Hours up to 6 AM 12/22/16 06:00 Intake Total 1200 ml Output Total 1050 ml Balance 150 ml Laboratory Data 24H LABS Laboratory Tests 2 12/21/16 14:06: Activated Partial Thromboplast Time 73.9H 12/22/16 06:42: Activated Partial Thromboplast Time 106.3H, Prothrombin Time 24.7H, Prothromb Time International Ratio 2.14 Aquilino King MD Dec 22, 2016 09:35
--- NOTE | 2016-12-22 10:53 | IPNPDOC ---
Director Technical Progress Note DATE OF SERVICE: 12/22/16 DATE OF ADMISSION: Dec 15, 2016 at 16:43 INPATIENT REHABILITATION ADMISSION DAY: #8 SUBJECTIVE: Patient is a 56-year-old white male with right BKA and healing femoral-tibial arterial graft. Patient admitted for initial pre-prosthetic mobility and ADL training with physical and occupational therapy to facilitate relative safe return to home. Patient is encouraged to be up out of bed in chair and focus on positioning with knee extension. Patient does report ongoing pain now less in the residual limb and noting more in the left LE that is working more. Overall, he has had reasonable pain control and slept well. No other complaints. ALLERGIES: See Below MEDICATIONS: Reviewed, see below. OBJECTIVE: VITAL SIGNS: Please see below. PHYSICAL EXAMINATION: GENERAL: Overweight middle-age white male right BKA in FloThru Orthotic on E. He appears to be in very mild musculoskeletal distress. HEENT: Normocephalic/atraumatic. CARDIOVASCULAR: Regular rate and rhythm with normal S1-S2. 2/4 bilateral radial pulses. LUNGS: All redd clear to auscultation. ABDOMEN: Benign, obese, nontender with normal bowel sounds in all quadrants. NEUROLOGICAL: Patient alert and oriented 4. Speech is clear, coherent and appropriate. Affect in general is pleasant and cooperative, but he does have a little flattening. Bilateral upper extremities or sensory motor intact. Left lower extremity sensory motor intact except for decreased sensorium from the ankle distally to light touch and vibration. Good right hip movement and motor but some guarding of movement and right knee with a fair amount of motor guarding. Patient now at about -10 degrees of Knee extension at rest. SKIN: Healing grafts and amputation incision, that are clean, without inflammation, but some spot sanguinous drainage. LABORATORY DATA: Reviewed. Please see below. MICROBIOLOGY: Please see below. IMAGING: No new imaging. DVT prophylaxis ordered?: Left lower extremity ISA valenzuela, Coumadin therapeutic at 2.14 today. ASSESSMENT AND PLAN: 1. Rehabilitation of right BKA: At this time very important to get patient to focus on proper positioning and stretching as well as tapping and sensory integration of the residual limb. Patient starting with physical occupational therapies today. We need to try and keep patient up and active for most of the day but most importantly right lower extremity positioning. A FloThru Knee Orthosis is protecting the residual limb and maintaining extension was fitted on Tuesday. Patient appears to be in less pain and more interactive with therapy with less knee flexion. 2. Pain management: Patient appears to be receiving reasonable analgesia as he appears very comfortable without any sedation or factors working against his ability to participate in therapy. Good response to the FloThru Orthosis with improving Knee extension with less pain and good wound healing. 3. DVT prophylaxis: INR 2.14. Patient on Coumadin 8.0 mg at 1700 hrs. today and recheck INR tomorrow. Heparin is d/c'ed. 4. Moderate anemia: H&H is relatively stable at 8.9 & 28.7%. We'll continue to monitor heart rate and blood pressure and periodic CBCs. 5. Mood: This has improved with better pain control, improved mobility and getting to go outside and draw. He is much more upbeat and denies self harm ideas. TIME SPENT: Chart Review, examination and documentation required greater than 25 minutes. Allergies Coded Allergies: No Known Drug Allergy (Verified Allergy, Unknown, 07/23/16) Vital Signs Vital Signs Date Time Temp Pulse Resp B/P (MAP) Pulse Ox O2 Delivery O2 Flow Rate FiO2 12/22/16 08:30 116/66 (83) 12/22/16 08:28 94 12/22/16 08:27 18 12/22/16 08:00 Room Air 12/22/16 05:29 98.6 96 Laboratory Data Labs 24H Laboratory Tests 2 12/21/16 14:06: Activated Partial Thromboplast Time 73.9H 12/22/16 06:42: Activated Partial Thromboplast Time 106.3H, Prothrombin Time 24.7H, Prothromb Time International Ratio 2.14 Current Medications Current Medications Current Medications Acetaminophen (Tylenol Tab) 650 mg Q6HP PRN PO PAIN / FEVER Last administered on 12/21/16 06:26; Start 12/15/16 at 15:45; Stop 01/14/17 at 15:44 Albuterol Sulfate (Proventil, Ventolin Hfa) 2 puff Q6HP PRN INH SHORTNESS OF BREATH; Start 12/15/16 at 16:00; Stop 01/14/17 at 15:59 Amlodipine Besylate (Norvasc) 5 mg DAILY PO Last administered on 12/22/16 08: 26; Start 12/16/16 at 09:00; Stop 01/15/17 at 08:59 Atorvastatin Calcium (Lipitor) 20 mg QHS PO Last administered on 12/21/16 20: 30; Start 12/15/16 at 21:00; Stop 01/14/17 at 20:59 Bisacodyl (Dulcolax Suppository) 10 mg DAILYPRN PRN [place] CONSTIPATION; Start 12/15 at 15:45; Stop 01/14/17 at 15:44 Carvedilol (COReg) 3.125 mg BID PO Last administered on 12/22/16 08:28; Start 12/15/16 at 21:00; Stop 01/14/17 at 20:59 Clonazepam (KlonoPIN) 0.5 mg BID PRN PO ANXIETY Last administered on 12/20/16 20:32; Start 12/15/16 at 16:00; Stop 12/29/16 at 23:55 Clonidine HCl (Catapres) 0.1 mg TID PO Last administered on 12/22/16 08:30; Start 12/15/16 at 21:00; Stop 01/14/17 at 20:59 Docusate Sodium (Colace) 100 mg BID PO Last administered on 12/22/16 08:26; Start 12/15/16 at 21:00; Stop 01/14/17 at 20:59 Duloxetine HCl (Cymbalta) 30 mg DAILY PO Last administered on 12/22/16 08:26; Start 12/16/16 at 09:00; Stop 01/15/17 at 08:59 Gabapentin (Neurontin) 800 mg TID PO Last administered on 12/22/16 08:27; Start 12/15/16 at 21:00; Stop 01/14/17 at 20:59 Heparin Sodium (Heparin (Flush)) 200 units PICC IV Last administered on 05:24; Start 12/16/16 at 06:00; Stop 01/15/17 at 05:59 Heparin Sodium (Porcine) (Heparin) ASDIRECTED PRN IV SEE LABEL COMMENTS; Start 12/21/16 at 01:15; Stop 12/26/16 at 01:14; Status Cancel Heparin Sodium (Porcine) (Heparin) ASDIRECTED PRN IV SEE LABEL COMMENTS; Start 12/15/16 at 17:00; Stop 12/20/16 at 16:59; Status DC Heparin Sodium (Porcine) 79471 units/IV Miscellaneous Supplies 250 ml @ 0 mls/ hr Q0M IV Last administered on 12/21/16 17:07; Start 12/21/16 at 01:04; Stop 12/22/16 at 08:14; Status DC Heparin Sodium (Porcine) 31382 units/IV Miscellaneous Supplies 250 ml @ 0 mls/ hr Q0M IV Last administered on 12/20/16 14:17; Start 12/15/16 at 17:53; Stop at 17:52; Status DC Magnesium Hydroxide (Milk Of Magnesia) 30 ml BIDP PRN PO CONSTIPATION; Start at 15:45; Stop 01/14/17 at 15:44 Non-Formulary Medication (Heparin Iv Rate Change Documentation ml/ Hr) ASDIRECTED XX ; Start 12/21/16 at 01:15; Stop 12/26/16 at 01:14; Status Cancel Non-Formulary Medication (Heparin Iv Rate Change Documentation ml/ Hr) ASDIRECTED XX Last administered on 12/20/16 15:58; Start 12/15/16 at 17:00; Stop 12/20/16 at 16:59; Status DC Oxycodone HCl (OxyCONTIN) 20 mg BID PO Last administered on 12/19/16 08:26; Start 12/15/16 at 21:00; Stop 12/19/16 at 19:12; Status DC Oxycodone HCl (OxyCONTIN) 30 mg BID PO Last administered on 12/22/16 08:27; Start 12/19/16 at 21:00; Stop 12/26/16 at 20:59 Oxycodone HCl (Roxicodone, Oxyir) 5 mg Q4HP PRN PO PAIN SCALE 6-10 Last administered on 12/22/16 03:49; Start 12/15/16 at 16:00; Stop 12/29/16 at 23:55 Pantoprazole Sodium (Protonix) 40 mg DAILY PO Last administered on 12/22/16 08 :26; Start 12/16/16 at 09:00; Stop 01/15/17 at 08:59 Senna/Docusate Sodium (Senokot S) 1 tab BID PO Last administered on 12/22/16 08:28; Start 12/15/16 at 21:00; Stop 01/14/17 at 20:59 Sodium Biphosphate/ Sodium Phosphate (Fleet Enema) 1 ea DAILYPRN PRN [place] CONSTIPATION; Start 12/15/16 at 15:45; Stop 01/14/17 at 15:44 Sodium Chloride (Saline Lock Flush) 10 ml ASDIRECTED PRN IV SEE LABEL COMMENTS ; Start 12/15/16 at 18:15; Stop 01/14/17 at 18:14 Sodium Chloride (Saline Lock Flush) 10 ml PICC IV Last administered on 05:24; Start 12/16/16 at 06:00; Stop 01/15/17 at 05:59 Trazodone HCl (Desyrel) 100 mg QHS PO Last administered on 12/15/16 20:18; Start 12/15/16 at 21:00; Stop 12/16/16 at 16:18; Status DC Trazodone HCl (Desyrel) 150 mg QHS PO Last administered on 12/21/16 20:28; Start 12/16/16 at 21:00; Stop 01/15/17 at 20:59 Warfarin Sodium (Coumadin) 8 mg DAILY@17 PO ; Start 12/16/16 at 17:00; Stop 12/23 at 16:59; Status Cancel Warfarin Sodium (Coumadin) 8 mg DAILY@17 PO Last administered on 12/21/16 17: 04; Start 12/17/16 at 17:00; Stop 12/24/16 at 16:59 Zolpidem Tartrate (Ambien) 5 mg QHSP PRN PO INSOMNIA; Start 12/15/16 at 16:00; Stop 12/29/16 at 23:55 MELISSA HARTLEY MD Dec 22, 2016 10:53
[2016-12-22 14:00] VITALS: BP 111/65
[2016-12-22] MEDS: WARFARIN SOD 4 MG TAB PO SCH (17:05)
[2016-12-22 20:00] VITALS: BP 137/72
[2016-12-22] MEDS: traZODone 50 MG TAB PO SCH (21:05)
[2016-12-22] MEDS: ATORVASTATIN 20 MG TAB PO SCH (21:05)
[2016-12-23] MEDS: oxyCODONE 5MG TAB PO PRN ×4 (01:08→16:19)
[2016-12-23] MEDS: ACETAMINOPHEN TAB 650MG DOSE (2X325MG) PO PRN ×3 (04:27→19:59)
[2016-12-23 06:00] VITALS: BP 116/61
[2016-12-23] MEDS: SODIUM CHLORIDE 0.9% INJ 10 ML SYR IV SCH (06:14)
[2016-12-23] MEDS: DOCUSATE SODIUM 100 MG CAP PO SCH ×2 (09:01→21:07)
[2016-12-23] MEDS: cloNIDine 0.1 MG TAB PO SCH ×3 (09:02→21:09)
[2016-12-23] MEDS: GABAPENTIN 400 MG CAP PO SCH ×3 (09:02→21:07)
[2016-12-23] MEDS: CARVedilol 3.125 MG TAB PO SCH ×2 (09:02→21:09)
[2016-12-23] MEDS: amLODIPine 5 MG TAB PO SCH (09:03)
[2016-12-23] MEDS: SENOKOT S TAB PO SCH ×2 (09:03→21:07)
[2016-12-23] MEDS: PANTOPRAZOLE 40MG TAB (PROTONIX) PO SCH (09:03)
[2016-12-23] MEDS: DULoxetine 30 MG CAP (CYMBALTA) PO SCH (09:03)
[2016-12-23] MEDS: oxyCODONE 15 MG CR TAB PO SCH ×2 (09:04→21:10)
--- NOTE | 2016-12-23 12:01 | IPNPDOC ---
[facility] Progress Note DATE OF SERVICE: 12/23/16 DATE OF ADMISSION: Dec 15, 2016 at 16:43 INPATIENT REHABILITATION ADMISSION DAY: #9 SUBJECTIVE: Patient is a 56-year-old white male with right BKA and healing femoral-tibial arterial graft. Patient admitted for initial pre-prosthetic mobility and ADL training with physical and occupational therapy to facilitate relative safe return to home. Patient is encouraged to be up out of bed in chair and focus on positioning with knee extension. Patient does report ongoing pain now less. Overall, he has had reasonable pain control and slept well. No other complaints. ALLERGIES: See Below MEDICATIONS: Reviewed, see below. OBJECTIVE: VITAL SIGNS: Please see below. PHYSICAL EXAMINATION: GENERAL: Overweight middle-age white male right BKA in FloThru Orthotic on RLE. He appears to be in very mild musculoskeletal distress. HEENT: Normocephalic/atraumatic. CARDIOVASCULAR: Regular rate and rhythm with normal S1-S2. 2/4 bilateral radial pulses. LUNGS: All redd clear to auscultation. ABDOMEN: Benign, obese, nontender with normal bowel sounds in all quadrants. NEUROLOGICAL: Patient alert and oriented 4. Speech is clear, coherent and appropriate. Affect in general is pleasant and cooperative, but he does have a little flattening. Bilateral upper extremities or sensory motor intact. Left lower extremity sensory motor intact except for decreased sensorium from the ankle distally to light touch and vibration. Good right hip movement and motor but some guarding of movement and right knee with a fair amount of motor guarding. Patient now at about -10 degrees of Knee extension at rest. SKIN: Healing grafts and amputation incision, that are clean, without inflammation, but some spot sanguinous drainage. LABORATORY DATA: Reviewed. Please see below. MICROBIOLOGY: Please see below. IMAGING: No new imaging. DVT prophylaxis ordered?: Left lower extremity ISA hoschantel, Coumadin therapeutic at 2.14 today. ASSESSMENT AND PLAN: 1. Rehabilitation of right BKA: At this time very important to get patient to focus on proper positioning and stretching as well as tapping and sensory integration of the residual limb. Patient starting with physical occupational therapies today. We need to try and keep patient up and active for most of the day but most importantly right lower extremity positioning. A FloThru Knee Orthosis is protecting the residual limb and maintaining extension was fitted on Tuesday. Patient appears to be in less pain and more interactive with therapy with less knee flexion. Rehab. Team Rounds: Patient is progressing with w/c mobility and transfers and is being trained in preparing his residual limb for a prosthesis. He is showing much better mood and no signs or expressions of self harm, but rather some optimism about his progress and getting to go home. Much of this is due to his improvement in pain control and knee straightening. We will work to try and get closure to full extension and we anticipate discharge to home with family for . 2. Pain management: Patient appears to be receiving reasonable analgesia as he appears very comfortable without any sedation or factors working against his ability to participate in therapy. Good response to the FloThru Orthosis with improving Knee extension with less pain and good wound healing. Patient is comfortable opening and closing it to massage his residual limb. 3. DVT prophylaxis: INR 2.14. Patient on Coumadin 8.0 mg at 1700 hrs. today and recheck INR tomorrow. Heparin is d/c'ed. 4. Moderate anemia: H&H is relatively stable at 8.9 & 28.7% yesterday. We'll continue to monitor heart rate and blood pressure and periodic CBCs. 5. Mood: This has improved with better pain control, improved mobility and getting to go outside and draw. He is much more upbeat and denies self harm ideas. Patient looks forward each day to going out with family to the garden and Stretchching. TIME SPENT: Chart Review, examination and documentation required greater than 25 minutes. Allergies Coded Allergies: No Known Drug Allergy (Verified Allergy, Unknown, 07/23/16) Vital Signs Vital Signs Date Time Temp Pulse Resp B/P (MAP) Pulse Ox O2 Delivery O2 Flow Rate FiO2 12/23/16 11:03 18 12/23/16 09:03 93 116/61 12/23/16 09:00 Room Air 12/23/16 06:00 97.9 96 Current Medications Current Medications Current Medications Acetaminophen (Tylenol Tab) 650 mg Q6HP PRN PO PAIN / FEVER Last administered on 12/23/16t 11:10; Start 12/15/16 at 15:45; Stop 01/14/17 at 15:44 Albuterol Sulfate (Proventil, Ventolin Hfa) 2 puff Q6HP PRN INH SHORTNESS OF BREATH; Start 12/15/16 at 16:00; Stop 01/14/17 at 15:59 Amlodipine Besylate (Norvasc) 5 mg DAILY PO Last administered on 12/23/16 09: 03; Start 12/16/16 at 09:00; Stop 01/15/17 at 08:59 Atorvastatin Calcium (Lipitor) 20 mg QHS PO Last administered on 12/22/16 21: 05; Start 12/15/16 at 21:00; Stop 01/14/17 at 20:59 Bisacodyl (Dulcolax Suppository) 10 mg DAILYPRN PRN CA CONSTIPATION; Start 12/15 at 15:45; Stop 01/14/17 at 15:44 Carvedilol (COReg) 3.125 mg BID PO Last administered on 12/23/16 09:02; Start 12/15/16 at 21:00; Stop 01/14/17 at 20:59 Clonazepam (KlonoPIN) 0.5 mg BID PRN PO ANXIETY Last administered on 12/20/16 20:32; Start 12/15/16 at 16:00; Stop 12/29/16 at 23:55 Clonidine HCl (Catapres) 0.1 mg TID PO Last administered on 12/23/16 09:02; Start 12/15/16 at 21:00; Stop 01/14/17 at 20:59 Docusate Sodium (Colace) 100 mg BID PO Last administered on 12/23/16 09:01; Start 12/15/16 at 21:00; Stop 01/14/17 at 20:59 Duloxetine HCl (Cymbalta) 30 mg DAILY PO Last administered on 12/23/16 09:03; Start 12/16/16 at 09:00; Stop 01/15/17 at 08:59 Gabapentin (Neurontin) 800 mg TID PO Last administered on 12/23/16 09:02; Start 12/15/16 at 21:00; Stop 01/14/17 at 20:59 Heparin Sodium (Heparin (Flush)) 200 units PICC IV Last administered on 06:14; Start 12/16/16 at 06:00; Stop 01/15/17 at 05:59 Heparin Sodium (Porcine) (Heparin) ASDIRECTED PRN IV SEE LABEL COMMENTS; Start 12/21/16 at 01:15; Stop 12/26/16 at 01:14; Status Cancel Heparin Sodium (Porcine) (Heparin) ASDIRECTED PRN IV SEE LABEL COMMENTS; Start 12/15/16 at 17:00; Stop 12/20/16 at 16:59; Status DC Heparin Sodium (Porcine) 33908 units/IV Miscellaneous Supplies 250 ml @ 0 mls/ hr Q0M IV Last administered on 12/21/16 17:07; Start 12/21/16 at 01:04; Stop 12/22/16 at 08:14; Status DC Heparin Sodium (Porcine) 53046 units/IV Miscellaneous Supplies 250 ml @ 0 mls/ hr Q0M IV Last administered on 12/20/16 14:17; Start 12/15/16 at 17:53; Stop at 17:52; Status DC Magnesium Hydroxide (Milk Of Magnesia) 30 ml BIDP PRN PO CONSTIPATION; Start at 15:45; Stop 01/14/17 at 15:44 Non-Formulary Medication (Heparin Iv Rate Change Documentation ml/ Hr) ASDIRECTED XX ; Start 12/21/16 at 01:15; Stop 12/26/16 at 01:14; Status Cancel Non-Formulary Medication (Heparin Iv Rate Change Documentation ml/ Hr) ASDIRECTED XX Last administered on 12/20/16 15:58; Start 12/15/16 at 17:00; Stop 12/20/16 at 16:59; Status DC Oxycodone HCl (OxyCONTIN) 20 mg BID PO Last administered on 12/19/16 08:26; Start 12/15/16 at 21:00; Stop 12/19/16 at 19:12; Status DC Oxycodone HCl (OxyCONTIN) 30 mg BID PO Last administered on 12/23/16 09:04; Start 12/19/16 at 21:00; Stop 12/26/16 at 20:59 Oxycodone HCl (Roxicodone, Oxyir) 5 mg Q4HP PRN PO PAIN SCALE 6-10 Last administered on 12/23/16 10:33; Start 12/15/16 at 16:00; Stop 12/29/16 at 23:55 Pantoprazole Sodium (Protonix) 40 mg DAILY PO Last administered on 12/23/16 09 :03; Start 12/16/16 at 09:00; Stop 01/15/17 at 08:59 Senna/Docusate Sodium (Senokot S) 1 tab BID PO Last administered on 12/23/16 09:03; Start 12/15/16 at 21:00; Stop 01/14/17 at 20:59 Sodium Biphosphate/ Sodium Phosphate (Fleet Enema) 1 ea DAILYPRN PRN CA CONSTIPATION; Start 12/15/16 at 15:45; Stop 01/14/17 at 15:44 Sodium Chloride (Saline Lock Flush) 10 ml ASDIRECTED PRN IV SEE LABEL COMMENTS ; Start 12/15/16 at 18:15; Stop 01/14/17 at 18:14 Sodium Chloride (Saline Lock Flush) 10 ml PICC IV Last administered on 06:14; Start 12/16/16 at 06:00; Stop 01/15/17 at 05:59 Trazodone HCl (Desyrel) 100 mg QHS PO Last administered on 12/15/16 20:18; Start 12/15/16 at 21:00; Stop 12/16/16 at 16:18; Status DC Trazodone HCl (Desyrel) 150 mg QHS PO Last administered on 12/22/16 21:05; Start 12/16/16 at 21:00; Stop 01/15/17 at 20:59 Warfarin Sodium (Coumadin) 8 mg DAILY@17 PO ; Start 12/16/16 at 17:00; Stop 12/23 at 16:59; Status Cancel Warfarin Sodium (Coumadin) 8 mg DAILY@17 PO Last administered on 12/22/16 17: 05; Start 12/17/16 at 17:00; Stop 12/24/16 at 16:59 Zolpidem Tartrate (Ambien) 5 mg QHSP PRN PO INSOMNIA; Start 12/15/16 at 16:00; Stop 12/29/16 at 23:55 MELISSA HARTLEY MD Dec 23, 2016 12:01
[2016-12-23 12:38] LABS: INR 2.13
[2016-12-23 14:00] VITALS: BP 128/70
[2016-12-23] MEDS: WARFARIN SOD 4 MG TAB PO SCH (16:17)
[2016-12-23 21:00] VITALS: BP 125/63
[2016-12-23] MEDS: traZODone 50 MG TAB PO SCH (21:09)
[2016-12-23] MEDS: ATORVASTATIN 20 MG TAB PO SCH (21:09)
--- NOTE | 2016-12-23 22:44 | IPNPDOC ---
Date Seen The patient was seen on 12/23/16. Progress Note SUBJECTIVE: Patient with minimal complaints states pain is fairly well- controlled. OBJECTIVE PHYSICAL EXAMINATION: VITAL SIGNS: Please see below. GENERAL: Lying in bed in no apparent distress HEENT: Normal CARDIOVASCULAR: Regular rate and rhythm. RESPIRATORY: Clear to auscultation bilaterally. ABDOMINAL: Soft nontender nondistended EXTREMITIES: Well-perfused incisions healing well NEUROLOGICAL: Awake alert oriented x3 with no focal deficits PSYCHOLOGICAL: Mood is stable, no suicidal ideation LABORATORY DATA: Please see below. MICROBIOLOGY: Please see below. DVT prophylaxis ordered?: Patient therapeutic on Coumadin ASSESSMENT AND PLAN: This is a 56-year-old white male with right lower extremity atherosclerotic arterial occlusive disease requiring a right below knee amputation. PROBLEMS: 1. right below-knee amputation: Patient's stump is healing well, pain is well controlled and patient is proceeding well with rehabilitation. VS, I&O, 24H, Fishbone Vital Signs/I&O Vital Signs Date Time Temp Pulse Resp B/P (MAP) Pulse Ox O2 Delivery O2 Flow Rate FiO2 12/23/16 21:10 18 12/23/16 21:09 125/63 12/23/16 21:09 100 12/23/16 21:00 97.7 97 Room Air I&O- Last 24 Hours up to 6 AM 12/23/16 06:00 Intake Total 1200 ml Output Total 1100 ml Balance 100 ml Laboratory Data 24H LABS Laboratory Tests 2 12/23/16 12:19: Prothrombin Time 24.6H, Prothromb Time International Ratio 2.13 Aquilino King MD Dec 23, 2016 22:44
[2016-12-24] MEDS: oxyCODONE 5MG TAB PO PRN ×4 (02:00→17:34)
[2016-12-24] MEDS: ACETAMINOPHEN TAB 650MG DOSE (2X325MG) PO PRN ×2 (04:44→11:31)
[2016-12-24 06:00] VITALS: BP 130/64
[2016-12-24 08:26] LABS: INR 2.1
[2016-12-24 08:32] LABS: MEAN CORPUSCULAR HEMOGLOBIN 28.2 pg (27.0-33.0); MEAN CORPUSCULAR HGB CONC 31.2 g/dl (32.0-36.5); MEAN CORPUSCULAR VOLUME 90.5 fl (80.0-96.0); RED CELL DISTRIBUTION WIDTH 15.1 % (11.5-14.5); WHITE BLOOD COUNT 8.4 K/mm3 (4.0-10.0)
[2016-12-24 08:43] LABS: ANION GAP 8 MEQ/L (8-16); BLOOD UREA NITROGEN 24 MG/DL (7-18); CALCIUM LEVEL 9.5 MG/DL (8.5-10.1); CARBON DIOXIDE LEVEL 27 MEQ/L (21-32); CHLORIDE LEVEL 98 MEQ/L (98-107); CREATININE FOR GFR 1.04 MG/DL (0.70-1.30); GLOMERULAR FILTRATION RATE > 60.0 (>56); GLUCOSE, FASTING 89 MG/DL (70-105); POTASSIUM SERUM 3.9 MEQ/L (3.5-5.1); SODIUM LEVEL 133 MEQ/L (136-145)
[2016-12-24] MEDS: GABAPENTIN 400 MG CAP PO SCH ×3 (09:05→21:04)
[2016-12-24] MEDS: DULoxetine 30 MG CAP (CYMBALTA) PO SCH (09:06)
[2016-12-24] MEDS: DOCUSATE SODIUM 100 MG CAP PO SCH ×2 (09:06→21:04)
[2016-12-24] MEDS: oxyCODONE 15 MG CR TAB PO SCH ×2 (09:06→21:04)
[2016-12-24] MEDS: cloNIDine 0.1 MG TAB PO SCH ×3 (09:06→21:05)
[2016-12-24] MEDS: amLODIPine 5 MG TAB PO SCH (09:06)
[2016-12-24] MEDS: SENOKOT S TAB PO SCH ×2 (09:06→21:04)
[2016-12-24] MEDS: CARVedilol 3.125 MG TAB PO SCH ×2 (09:07→21:05)
[2016-12-24] MEDS: PANTOPRAZOLE 40MG TAB (PROTONIX) PO SCH (09:07)
--- NOTE | 2016-12-24 11:29 | IPNPDOC ---
Hand [employer] Progress Note DATE OF SERVICE: 12/24/16 DATE OF ADMISSION: Dec 15, 2016 at 16:43 INPATIENT REHABILITATION ADMISSION DAY: #10 SUBJECTIVE: Patient is a 56-year-old white male with right BKA and healing femoral-tibial arterial graft. Patient admitted for initial pre-prosthetic mobility and ADL training with physical and occupational therapy to facilitate relative safe return to home. Patient is encouraged to be up out of bed in chair and focus on positioning with knee extension. Patient does report ongoing pain now less. Overall, he has had reasonable pain control and slept well. No other complaints. ALLERGIES: See Below MEDICATIONS: Reviewed, see below. OBJECTIVE: VITAL SIGNS: Please see below. PHYSICAL EXAMINATION: GENERAL: Overweight middle-age white male right BKA in FloThru Orthotic on RLE. He appears to be in very mild musculoskeletal distress. HEENT: Normocephalic/atraumatic. CARDIOVASCULAR: Regular rate and rhythm with normal S1-S2. 2/4 bilateral radial pulses. LUNGS: All redd clear to auscultation. ABDOMEN: Benign, obese, nontender with normal bowel sounds in all quadrants. NEUROLOGICAL: Patient alert and oriented 4. Speech is clear, coherent and appropriate. Affect in general is pleasant and cooperative, but he does have a little flattening. Bilateral upper extremities or sensory motor intact. Left lower extremity sensory motor intact except for decreased sensorium from the ankle distally to light touch and vibration. Good right hip movement and motor but some guarding of movement and right knee with a fair amount of motor guarding. Patient now at about -5 to -10 degrees of Knee extension at rest. SKIN: Healing grafts and amputation incision, that are clean, without inflammation. LABORATORY DATA: Reviewed. Please see below. MICROBIOLOGY: Please see below. IMAGING: No new imaging. DVT prophylaxis ordered?: Left lower extremity ISA bianca, Coumadin therapeutic at 2.10 today. ASSESSMENT AND PLAN: 1. Rehabilitation of right BKA: At this time very important to get patient to focus on proper positioning and stretching as well as tapping and sensory integration of the residual limb. Patient starting with physical occupational therapies today. We need to try and keep patient up and active for most of the day but most importantly right lower extremity positioning. A FloThru Knee Orthosis is protecting the residual limb and maintaining extension was fitted on Tuesday. Patient appears to be in less pain and more interactive with therapy with less knee flexion. Patient is progressing with w/c mobility and transfers and is being trained in preparing his residual limb for a prosthesis. He is showing much better mood and no signs or expressions of self harm, but rather some optimism about his progress and getting to go home. Much of this is due to his improvement in pain control and knee straightening. We will work to try and get closure to full extension and we anticipate discharge to home with family for 12/28/16. Preprosthetic gaiting with walker is increasing steadily now > 60 feet. 2. Pain management: Patient appears to be receiving reasonable analgesia as he appears very comfortable without any sedation or factors working against his ability to participate in therapy. Good response to the FloThru Orthosis with improving Knee extension with less pain and good wound healing. Patient is comfortable opening and closing it to massage his residual limb. Knee extension and comfort are apparently improving. 3. DVT prophylaxis: INR 2.10. Patient on Coumadin 8.0 mg at 1700 hrs. last few days. I will give one dose of 9.0 mg to boost up from current slow decline and give 8mg for Tuesday and Tuesday. We will continue to recheck INR daily. Heparin is discontinued. 4. Moderate anemia: H&H is relatively stable at 9.3 & 29.9% today. We'll continue to monitor heart rate and blood pressure and periodic CBCs. 5. Mood: This has improved with better pain control, improved mobility and getting to go outside and draw. He is much more upbeat and denies self harm ideas. Patient looks forward each day to going out with family to the garden and sketching. 6. Mild Hyponatremia: Na+ 135. TIME SPENT: Chart Review, examination and documentation required greater than 25 minutes. Allergies Coded Allergies: No Known Drug Allergy (Verified Allergy, Unknown, 07/23/16) Vital Signs Vital Signs Date Time Temp Pulse Resp B/P (MAP) Pulse Ox O2 Delivery O2 Flow Rate FiO2 12/24/16 09:06 18 12/24/16 09:06 87 130/64 12/24/16 06:00 97.6 98 Room Air Laboratory Data CBC/BMP Laboratory Tests 12/24/16 07:18 Red Blood Count 3.31 L, Mean Corpuscular Volume 90.5, Mean Corpuscular Hemoglobin 28.2, Mean Corpuscular Hemoglobin Concent 31.2 L, Red Cell Distribution Width 15.1 H, Calcium Level 9.5 Labs 24H Laboratory Tests 2 12/23/16 12:19: Prothrombin Time 24.6H, Prothromb Time International Ratio 2.13 12/24/16 07:18: Prothrombin Time 24.3H, Prothromb Time International Ratio 2.10, Anion Gap 8, Glomerular Filtration Rate > 60.0, Blood Urea Nitrogen 24H, Creatinine 1.04, Sodium Level 133L, Potassium Level 3.9, Chloride Level 98, Carbon Dioxide Level 27, Calcium Level 9.5 Current Medications Current Medications Current Medications Acetaminophen (Tylenol Tab) 650 mg Q6HP PRN PO PAIN / FEVER Last administered on 12/24/16 04:44; Start 12/15/16 at 15:45; Stop 01/14/17 at 15:44 Albuterol Sulfate (Proventil, Ventolin Hfa) 2 puff Q6HP PRN INH SHORTNESS OF BREATH; Start 12/15/16 at 16:00; Stop 01/14/17 at 15:59 Amlodipine Besylate (Norvasc) 5 mg DAILY PO Last administered on 12/24/16 09: 06; Start 12/16/16 at 09:00; Stop 01/15/17 at 08:59 Atorvastatin Calcium (Lipitor) 20 mg QHS PO Last administered on 12/23/16 21: 09; Start 12/15/16 at 21:00; Stop 01/14/17 at 20:59 Bisacodyl (Dulcolax Suppository) 10 mg DAILYPRN PRN [place] CONSTIPATION; Start 12/15 at 15:45; Stop 01/14/17 at 15:44 Carvedilol (COReg) 3.125 mg BID PO Last administered on 12/24/16 09:07; Start 12/15/16 at 21:00; Stop 01/14/17 at 20:59 Clonazepam (KlonoPIN) 0.5 mg BID PRN PO ANXIETY Last administered on 12/20/16 20:32; Start 12/15/16 at 16:00; Stop 12/29/16 at 23:55 Clonidine HCl (Catapres) 0.1 mg TID PO Last administered on 12/24/16 09:06; Start 12/15/16 at 21:00; Stop 01/14/17 at 20:59 Docusate Sodium (Colace) 100 mg BID PO Last administered on 12/24/16 09:06; Start 12/15/16 at 21:00; Stop 01/14/17 at 20:59 Duloxetine HCl (Cymbalta) 30 mg DAILY PO Last administered on 12/24/16 09:06; Start 12/16/16 at 09:00; Stop 01/15/17 at 08:59 Gabapentin (Neurontin) 800 mg TID PO Last administered on 12/24/16 09:05; Start 12/15/16 at 21:00; Stop 01/14/17 at 20:59 Heparin Sodium (Heparin (Flush)) 200 units PICC IV Last administered on 06:14; Start 12/16/16 at 06:00; Stop 12/23/16 at 18:02; Status DC Heparin Sodium (Porcine) (Heparin) ASDIRECTED PRN IV SEE LABEL COMMENTS; Start 12/21/16 at 01:15; Stop 12/26/16 at 01:14; Status Cancel Heparin Sodium (Porcine) (Heparin) ASDIRECTED PRN IV SEE LABEL COMMENTS; Start 12/15/16 at 17:00; Stop 12/20/16 at 16:59; Status DC Heparin Sodium (Porcine) 00267 units/IV Miscellaneous Supplies 250 ml @ 0 mls/ hr Q0M IV Last administered on 12/21/16 17:07; Start 12/21/16 at 01:04; Stop 12/22/16 at 08:14; Status DC Heparin Sodium (Porcine) 22969 units/IV Miscellaneous Supplies 250 ml @ 0 mls/ hr Q0M IV Last administered on 12/20/16 14:17; Start 12/15/16 at 17:53; Stop at 17:52; Status DC Magnesium Hydroxide (Milk Of Magnesia) 30 ml BIDP PRN PO CONSTIPATION; Start at 15:45; Stop 01/14/17 at 15:44 Non-Formulary Medication (Heparin Iv Rate Change Documentation ml/ Hr) ASDIRECTED XX ; Start 12/21/16 at 01:15; Stop 12/26/16 at 01:14; Status Cancel Non-Formulary Medication (Heparin Iv Rate Change Documentation ml/ Hr) ASDIRECTED XX Last administered on 12/20/16 15:58; Start 12/15/16 at 17:00; Stop 12/20/16 at 16:59; Status DC Oxycodone HCl (OxyCONTIN) 20 mg BID PO Last administered on 12/19/16 08:26; Start 12/15/16 at 21:00; Stop 12/19/16 at 19:12; Status DC Oxycodone HCl (OxyCONTIN) 30 mg BID PO Last administered on 12/24/16 09:06; Start 12/19/16 at 21:00; Stop 12/31/16 at 23:55 Oxycodone HCl (Roxicodone, Oxyir) 5 mg Q4HP PRN PO PAIN SCALE 6-10 Last administered on 12/24/16 06:10; Start 12/15/16 at 16:00; Stop 12/31/16 at 23:55 Pantoprazole Sodium (Protonix) 40 mg DAILY PO Last administered on 12/24/16 09 :07; Start 12/16/16 at 09:00; Stop 01/15/17 at 08:59 Senna/Docusate Sodium (Senokot S) 1 tab BID PO Last administered on 12/24/16 09:06; Start 12/15/16 at 21:00; Stop 01/14/17 at 20:59 Sodium Biphosphate/ Sodium Phosphate (Fleet Enema) 1 ea DAILYPRN PRN [place] CONSTIPATION; Start 12/15/16 at 15:45; Stop 01/14/17 at 15:44 Sodium Chloride (Saline Lock Flush) 10 ml ASDIRECTED PRN IV SEE LABEL COMMENTS ; Start 12/15/16 at 18:15; Stop 12/23/16 at 18:02; Status DC Sodium Chloride (Saline Lock Flush) 10 ml PICC IV Last administered on 06:14; Start 12/16/16 at 06:00; Stop 12/23/16 at 18:02; Status DC Trazodone HCl (Desyrel) 100 mg QHS PO Last administered on 12/15/16 20:18; Start 12/15/16 at 21:00; Stop 12/16/16 at 16:18; Status DC Trazodone HCl (Desyrel) 150 mg QHS PO Last administered on 12/23/16 21:09; Start 12/16/16 at 21:00; Stop 01/15/17 at 20:59 Warfarin Sodium (Coumadin) 8 mg DAILY@17 PO ; Start 12/25/16 at 17:00; Stop at 23:59 Warfarin Sodium (Coumadin) 8 mg DAILY@17 PO ; Start 12/16/16 at 17:00; Stop 12/23 at 16:59; Status Cancel Warfarin Sodium (Coumadin) 8 mg DAILY@17 PO Last administered on 12/23/16t 16: 17; Start 12/17/16 at 17:00; Stop 12/24/16 at 10:25; Status DC Warfarin Sodium (Coumadin) 9 mg DAILY@17 PO ; Start 12/24/16 at 17:00; Stop at 23:55 Zolpidem Tartrate (Ambien) 5 mg QHSP PRN PO INSOMNIA; Start 12/15/16 at 16:00; Stop 12/29/16 at 23:55 MELISSA HARTLEY MD Dec 24, 2016 11:29
[2016-12-24 14:00] VITALS: BP 119/69
[2016-12-24] MEDS ORDERED: WARFARIN SOD 3 MG TAB PO SCH (17:00)
[2016-12-24] MEDS: traZODone 50 MG TAB PO SCH (21:04)
[2016-12-24] MEDS: ATORVASTATIN 20 MG TAB PO SCH (21:05)
[2016-12-24 21:46] VITALS: BP 124/58
--- NOTE | 2016-12-24 23:36 | IPNPDOC ---
Date Seen The patient was seen on 12/24/16. Progress Note SUBJECTIVE: Patient rates pain is better controlled. OBJECTIVE PHYSICAL EXAMINATION: VITAL SIGNS: Please see below. GENERAL: Awake alert in no apparent distress HEENT: Normal CARDIOVASCULAR: Regular rate and rhythm. RESPIRATORY: Clear to auscultation bilaterally. ABDOMINAL: Nontender nondistended EXTREMITIES: Right below-knee amputation stump is well perfused and healing well NEUROLOGICAL: Awake alert oriented x3 with no focal deficits PSYCHOLOGICAL: Mood improving no suicidal ideation. LABORATORY DATA: Please see below. MICROBIOLOGY: Please see below. 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 Patient has been rehabilitating successfully and his right below knee amputation wound is healing well. PROBLEMS: 1. right lower extremity arterial atherosclerotic disease: Right below knee amputation stump is healing well. VS, I&O, 24H, Fishbone Vital Signs/I&O Vital Signs Date Time Temp Pulse Resp B/P (MAP) Pulse Ox O2 Delivery O2 Flow Rate FiO2 12/24/16 22:14 Room Air 12/24/16 21:46 97.4 96 16 124/58 (80) 99 I&O- Last 24 Hours up to 6 AM 12/24/16 06:00 Intake Total 600 ml Output Total 1800 ml Balance -1200 ml Laboratory Data 24H LABS Laboratory Tests 2 12/24/16 07:18: Prothrombin Time 24.3H, Prothromb Time International Ratio 2.10, Anion Gap 8, Glomerular Filtration Rate > 60.0, Blood Urea Nitrogen 24H, Creatinine 1.04, Sodium Level 133L, Potassium Level 3.9, Chloride Level 98, Carbon Dioxide Level 27, Calcium Level 9.5 CBC/BMP Laboratory Tests 12/24/16 07:18 Red Blood Count 3.31 L, Mean Corpuscular Volume 90.5, Mean Corpuscular Hemoglobin 28.2, Mean Corpuscular Hemoglobin Concent 31.2 L, Red Cell Distribution Width 15.1 H, Calcium Level 9.5 Aquilino King MD Dec 24, 2016 23:36
[2016-12-25] MEDS: oxyCODONE 5MG TAB PO PRN ×4 (01:57→19:37)
[2016-12-25] MEDS: ACETAMINOPHEN TAB 650MG DOSE (2X325MG) PO PRN ×2 (03:59→11:59)
[2016-12-25 06:30] VITALS: BP 107/70
[2016-12-25 06:38] LABS: INR 2.64
[2016-12-25] MEDS: SENOKOT S TAB PO SCH ×2 (08:57→21:05)
[2016-12-25] MEDS: PANTOPRAZOLE 40MG TAB (PROTONIX) PO SCH (08:57)
[2016-12-25] MEDS: DULoxetine 30 MG CAP (CYMBALTA) PO SCH (08:57)
[2016-12-25] MEDS: CARVedilol 3.125 MG TAB PO SCH ×2 (08:57→21:06)
[2016-12-25] MEDS: GABAPENTIN 400 MG CAP PO SCH ×3 (08:57→21:05)
[2016-12-25] MEDS: DOCUSATE SODIUM 100 MG CAP PO SCH ×2 (08:57→21:05)
[2016-12-25] MEDS: amLODIPine 5 MG TAB PO SCH (08:57)
[2016-12-25] MEDS: cloNIDine 0.1 MG TAB PO SCH ×3 (08:58→21:06)
[2016-12-25] MEDS: oxyCODONE 15 MG CR TAB PO SCH ×2 (08:58→21:05)
[2016-12-25 14:00] VITALS: BP 121/75
[2016-12-25] MEDS: WARFARIN SOD 4 MG TAB PO SCH (16:21)
[2016-12-25 19:55] VITALS: BP 131/61
--- NOTE | 2016-12-25 20:58 | IPNPDOC ---
Date Seen The patient was seen on 12/25/16. Progress Note SUBJECTIVE: Patient with some stump pain but is improved with pain management. OBJECTIVE PHYSICAL EXAMINATION: VITAL SIGNS: Please see below. GENERAL: Awake awake alert lying in bed in no apparent distress HEENT: Normal CARDIOVASCULAR: Regular rate and rhythm. RESPIRATORY: Clear to auscultation bilaterally. ABDOMINAL: Soft nontender nondistended EXTREMITIES: Well-perfused. Right lower extremity below-knee amputation stump is healing well. NEUROLOGICAL: Awake alert oriented x3 with no focal deficits PSYCHOLOGICAL: Mood is good no suicidal ideation LABORATORY DATA: Please see below. MICROBIOLOGY: Please see below. DVT prophylaxis ordered?: Patient on Coumadin ASSESSMENT AND PLAN: This is a 56-year-old white male with atherosclerotic arterial occlusive disease in the right lower extremity and below-knee right amputation. PROBLEMS: 1. right lower extremity atherosclerotic arterial occlusive disease and below- knee amputation: Right lower extremity is well-perfused the stump is healing well. VS, I&O, 24H, Fishbone Vital Signs/I&O Vital Signs Date Time Temp Pulse Resp B/P (MAP) Pulse Ox O2 Delivery O2 Flow Rate FiO2 12/25/16 20:07 16 12/25/16 19:56 Room Air 12/25/16 19:55 98.3 95 131/61 (84) 98 I&O- Last 24 Hours up to 6 AM 12/25/16 06:00 Intake Total 480 ml Output Total 1050 ml Balance -570 ml Laboratory Data 24H LABS Laboratory Tests 2 12/25/16 06:07: Prothrombin Time 29.3H, Prothromb Time International Ratio 2.64 Aquilino Kign MD Dec 25, 2016 20:58
[2016-12-25] MEDS: traZODone 50 MG TAB PO SCH (21:05)
[2016-12-25] MEDS: ATORVASTATIN 20 MG TAB PO SCH (21:05)
[2016-12-26] MEDS: oxyCODONE 5MG TAB PO PRN ×4 (01:21→16:52)
[2016-12-26 05:37] VITALS: BP 135/76
[2016-12-26 06:29] LABS: INR 2.51
[2016-12-26] MEDS: SENOKOT S TAB PO SCH ×2 (08:45→20:43)
[2016-12-26] MEDS: DOCUSATE SODIUM 100 MG CAP PO SCH ×2 (08:45→20:43)
[2016-12-26] MEDS: oxyCODONE 15 MG CR TAB PO SCH ×2 (08:45→20:42)
[2016-12-26] MEDS: amLODIPine 5 MG TAB PO SCH (08:45)
[2016-12-26] MEDS: PANTOPRAZOLE 40MG TAB (PROTONIX) PO SCH (08:46)
[2016-12-26] MEDS: DULoxetine 30 MG CAP (CYMBALTA) PO SCH (08:46)
[2016-12-26] MEDS: CARVedilol 3.125 MG TAB PO SCH ×2 (08:46→20:43)
[2016-12-26] MEDS: cloNIDine 0.1 MG TAB PO SCH ×3 (08:46→20:43)
[2016-12-26] MEDS: GABAPENTIN 400 MG CAP PO SCH ×3 (08:46→20:43)
[2016-12-26 14:00] VITALS: BP 121/70
[2016-12-26] MEDS: WARFARIN SOD 4 MG TAB PO SCH (16:52)
[2016-12-26 20:10] VITALS: BP 120/65
[2016-12-26] MEDS: ATORVASTATIN 20 MG TAB PO SCH (20:43)
[2016-12-26] MEDS: traZODone 50 MG TAB PO SCH (20:43)
[2016-12-27] MEDS: oxyCODONE 5MG TAB PO PRN ×4 (00:31→21:52)
[2016-12-27 05:59] VITALS: BP 115/63
[2016-12-27 06:59] LABS: MEAN CORPUSCULAR HEMOGLOBIN 27.5 pg (27.0-33.0); MEAN CORPUSCULAR HGB CONC 30.3 g/dl (32.0-36.5); MEAN CORPUSCULAR VOLUME 90.8 fl (80.0-96.0); RED CELL DISTRIBUTION WIDTH 15.3 % (11.5-14.5); WHITE BLOOD COUNT 7.8 K/mm3 (4.0-10.0)
[2016-12-27 07:01] LABS: INR 2.49
[2016-12-27] MEDS: SENOKOT S TAB PO SCH ×2 (08:45→20:43)
[2016-12-27] MEDS: DULoxetine 30 MG CAP (CYMBALTA) PO SCH (08:45)
[2016-12-27] MEDS: PANTOPRAZOLE 40MG TAB (PROTONIX) PO SCH (08:45)
[2016-12-27] MEDS: DOCUSATE SODIUM 100 MG CAP PO SCH ×2 (08:45→20:43)
[2016-12-27] MEDS: CARVedilol 3.125 MG TAB PO SCH ×2 (08:45→20:44)
[2016-12-27] MEDS: cloNIDine 0.1 MG TAB PO SCH ×3 (08:46→20:44)
[2016-12-27] MEDS: GABAPENTIN 400 MG CAP PO SCH ×3 (08:46→20:43)
[2016-12-27] MEDS: amLODIPine 5 MG TAB PO SCH (08:46)
[2016-12-27] MEDS: oxyCODONE 15 MG CR TAB PO SCH ×2 (08:47→20:45)
--- NOTE | 2016-12-27 12:10 | IPNPDOC ---
[facility] Progress Note DATE OF SERVICE: 12/27/16 DATE OF ADMISSION: Dec 15, 2016 at 16:43 INPATIENT REHABILITATION ADMISSION DAY: #13 SUBJECTIVE: Patient is a 56-year-old white male with right BKA and healing femoral-tibial arterial graft. Patient admitted for initial pre-prosthetic mobility and ADL training with physical and occupational therapy to facilitate relative safe return to home. Patient is encouraged to be up out of bed in chair and focus on positioning with knee extension. Patient does report ongoing pain now less. Overall, he has had reasonable pain control and slept well. No other complaints. ALLERGIES: See Below MEDICATIONS: Reviewed, see below. OBJECTIVE: VITAL SIGNS: Please see below. PHYSICAL EXAMINATION: GENERAL: Overweight middle-age white male right BKA in FloThru Orthotic on RLE. He appears to be in very mild musculoskeletal distress. HEENT: Normocephalic/atraumatic. CARDIOVASCULAR: Regular rate and rhythm with normal S1-S2. 2/4 bilateral radial pulses. LUNGS: All redd clear to auscultation. ABDOMEN: Benign, obese, nontender with normal bowel sounds in all quadrants. NEUROLOGICAL: Patient alert and oriented 4. Speech is clear, coherent and appropriate. Affect in general is pleasant and cooperative, but he does have a little flattening. Bilateral upper extremities or sensory motor intact. Left lower extremity sensory motor intact except for decreased sensorium from the ankle distally to light touch and vibration. Good right hip movement and motor but some guarding of movement and right knee with a fair amount of motor guarding. Patient now at about -5 to -10 degrees of Knee extension at rest. SKIN: Healing grafts and amputation incision, that are clean, without inflammation. However, foam dressing starting to saturate before next change. LABORATORY DATA: Reviewed. Please see below. MICROBIOLOGY: Please see below. IMAGING: No new imaging. DVT prophylaxis ordered?: Left lower extremity ISA valenzuela, Coumadin therapeutic at 2.49 today. ASSESSMENT AND PLAN: 1. Rehabilitation of right BKA: Patient participating well in PT/OT with improving Knee AROM and w/c & walker mobility. The FloThru Knee Orthosis is protecting the residual limb and maintaining/improving extension. Patient is in less pain and more interactive with therapy. He is showing much better mood and no signs or expressions of self harm, but rather some optimism about his progress and getting to go home. Much of this is due to his improvement in pain control and knee straightening. We will work to try and get closer to full extension and we anticipate discharge to home with family for 12/28/16. Rehab. Team Rounds: Patient doing well with w/c mobility and ADL's and fair with FWW now up to 65 ft. Patient to be discharged to home as expected tomorrow when he should have reached his d/c goals. 2. Pain management: Patient appears to be receiving reasonable analgesia as he appears very comfortable without any sedation or factors working against his ability to participate in therapy. Good response to the FloThru Orthosis with improving Knee extension with less pain and good wound healing. Patient is comfortable opening and closing it to massage his residual limb. Knee extension and comfort are improving. 3. DVT prophylaxis: INR 2.49. Patient on Coumadin 8.0 mg at 1700 hrs. two days. I see that the one dose of 9.0 mg boosted up into mid-range and giving 8mg daily is keeping it there. We will continue to recheck INR daily. 4. Moderate anemia: H&H is relatively stable at 9.4 & 30.9% today. We'll continue to monitor heart rate and blood pressure and periodic CBCs. 5. Mood: His has improved with better pain control, improved mobility and getting to go outside and draw. He is much more upbeat and denies self harm ideas. Patient looks forward each day to going out with family to the garden and sketching. TIME SPENT: Chart Review, examination and documentation required greater than 35 minutes. Allergies Coded Allergies: No Known Drug Allergy (Verified Allergy, Unknown, 07/23/16) Vital Signs Vital Signs Date Time Temp Pulse Resp B/P (MAP) Pulse Ox O2 Delivery O2 Flow Rate FiO2 12/27/16 08:47 20 Room Air 12/27/16 08:46 115/63 12/27/16 08:45 82 12/27/16 05:59 98.0 97 Laboratory Data CBC/BMP Laboratory Tests 12/27/16 06:20 Red Blood Count 3.40 L, Mean Corpuscular Volume 90.8, Mean Corpuscular Hemoglobin 27.5, Mean Corpuscular Hemoglobin Concent 30.3 L, Red Cell Distribution Width 15.3 H Labs 24H Laboratory Tests 2 12/27/16 06:20: Prothrombin Time 27.9H, Prothromb Time International Ratio 2.49 Current Medications Current Medications Current Medications Acetaminophen (Tylenol Tab) 650 mg Q6HP PRN PO PAIN / FEVER Last administered on 12/25/16 11:59; Start 12/15/16 at 15:45; Stop 01/14/17 at 15:44 Albuterol Sulfate (Proventil, Ventolin Hfa) 2 puff Q6HP PRN INH SHORTNESS OF BREATH; Start 12/15/16 at 16:00; Stop 01/14/17 at 15:59 Amlodipine Besylate (Norvasc) 5 mg DAILY PO Last administered on 12/27/16 08: 46; Start 12/16/16 at 09:00; Stop 01/15/17 at 08:59 Atorvastatin Calcium (Lipitor) 20 mg QHS PO Last administered on 12/26/16 20: 43; Start 12/15/16 at 21:00; Stop 01/14/17 at 20:59 Bisacodyl (Dulcolax Suppository) 10 mg DAILYPRN PRN [place] CONSTIPATION; Start 12/15 at 15:45; Stop 01/14/17 at 15:44 Carvedilol (COReg) 3.125 mg BID PO Last administered on 12/27/16 08:45; Start 12/15/16 at 21:00; Stop 01/14/17 at 20:59 Clonazepam (KlonoPIN) 0.5 mg BID PRN PO ANXIETY Last administered on 12/20/16 20:32; Start 12/15/16 at 16:00; Stop 12/31/16 at 23:55 Clonidine HCl (Catapres) 0.1 mg TID PO Last administered on 12/27/16 08:46; Start 12/15/16 at 21:00; Stop 01/14/17 at 20:59 Docusate Sodium (Colace) 100 mg BID PO Last administered on 12/27/16 08:45; Start 12/15/16 at 21:00; Stop 01/14/17 at 20:59 Duloxetine HCl (Cymbalta) 30 mg DAILY PO Last administered on 12/27/16 08:45; Start 12/16/16 at 09:00; Stop 01/15/17 at 08:59 Gabapentin (Neurontin) 800 mg TID PO Last administered on 12/27/16 08:46; Start 12/15/16 at 21:00; Stop 01/14/17 at 20:59 Heparin Sodium (Heparin (Flush)) 200 units PICC IV Last administered on 06:14; Start 12/16/16 at 06:00; Stop 12/23/16 at 18:02; Status DC Heparin Sodium (Porcine) (Heparin) ASDIRECTED PRN IV SEE LABEL COMMENTS; Start 12/21/16 at 01:15; Stop 12/26/16 at 01:14; Status Cancel Heparin Sodium (Porcine) (Heparin) ASDIRECTED PRN IV SEE LABEL COMMENTS; Start 12/15/16 at 17:00; Stop 12/20/16 at 16:59; Status DC Heparin Sodium (Porcine) 21675 units/IV Miscellaneous Supplies 250 ml @ 0 mls/ hr Q0M IV Last administered on 12/21/16 17:07; Start 12/21/16 at 01:04; Stop 12/22/16 at 08:14; Status DC Heparin Sodium (Porcine) 11271 units/IV Miscellaneous Supplies 250 ml @ 0 mls/ hr Q0M IV Last administered on 12/20/16 14:17; Start 12/15/16 at 17:53; Stop at 17:52; Status DC Magnesium Hydroxide (Milk Of Magnesia) 30 ml BIDP PRN PO CONSTIPATION; Start at 15:45; Stop 01/14/17 at 15:44 Non-Formulary Medication (Heparin Iv Rate Change Documentation ml/ Hr) ASDIRECTED XX ; Start 12/21/16 at 01:15; Stop 12/26/16 at 01:14; Status Cancel Non-Formulary Medication (Heparin Iv Rate Change Documentation ml/ Hr) ASDIRECTED XX Last administered on 12/20/16 15:58; Start 12/15/16 at 17:00; Stop 12/20/16 at 16:59; Status DC Oxycodone HCl (OxyCONTIN) 20 mg BID PO Last administered on 12/19/16 08:26; Start 12/15/16 at 21:00; Stop 12/19/16 at 19:12; Status DC Oxycodone HCl (OxyCONTIN) 30 mg BID PO Last administered on 12/27/16 08:47; Start 12/19/16 at 21:00; Stop 12/31/16 at 23:55 Oxycodone HCl (Roxicodone, Oxyir) 5 mg Q4HP PRN PO PAIN SCALE 6-10 Last administered on 12/27/16 06:20; Start 12/15/16 at 16:00; Stop 12/31/16 at 23:55 Pantoprazole Sodium (Protonix) 40 mg DAILY PO Last administered on 12/27/16 08 :45; Start 12/16/16 at 09:00; Stop 01/15/17 at 08:59 Senna/Docusate Sodium (Senokot S) 1 tab BID PO Last administered on 12/27/16 08:45; Start 12/15/16 at 21:00; Stop 01/14/17 at 20:59 Sodium Biphosphate/ Sodium Phosphate (Fleet Enema) 1 ea DAILYPRN PRN [place] CONSTIPATION; Start 12/15/16 at 15:45; Stop 01/14/17 at 15:44 Sodium Chloride (Saline Lock Flush) 10 ml ASDIRECTED PRN IV SEE LABEL COMMENTS ; Start 12/15/16 at 18:15; Stop 12/23/16 at 18:02; Status DC Sodium Chloride (Saline Lock Flush) 10 ml PICC IV Last administered on 06:14; Start 12/16/16 at 06:00; Stop 12/23/16 at 18:02; Status DC Trazodone HCl (Desyrel) 100 mg QHS PO Last administered on 12/15/16 20:18; Start 12/15/16 at 21:00; Stop 12/16/16 at 16:18; Status DC Trazodone HCl (Desyrel) 150 mg QHS PO Last administered on 12/26/16 20:43; Start 12/16/16 at 21:00; Stop 01/15/17 at 20:59 Warfarin Sodium (Coumadin) 8 mg DAILY@17 PO Last administered on 12/26/16 16: 52; Start 12/25/16 at 17:00; Stop 12/30/16 at 23:55 Warfarin Sodium (Coumadin) 8 mg DAILY@17 PO ; Start 12/16/16 at 17:00; Stop 12/23 at 16:59; Status Cancel Warfarin Sodium (Coumadin) 8 mg DAILY@17 PO Last administered on 12/23/16 16: 17; Start 12/17/16 at 17:00; Stop 12/24/16 at 10:25; Status DC Warfarin Sodium (Coumadin) 9 mg DAILY@17 PO Last administered on 12/24/16t 16: 31; Start 12/24/16 at 17:00; Stop 12/24/16 at 23:55; Status DC Zolpidem Tartrate (Ambien) 5 mg QHSP PRN PO INSOMNIA; Start 12/15/16 at 16:00; Stop 12/29/16 at 23:55; Status Cancel MELISSA HARTLEY MD Dec 27, 2016 12:10
--- NOTE | 2016-12-27 12:33 | IPNPDOC ---
Date Seen The patient was seen on 12/27/16. Progress Note HPI: 56year oldM with a past medical history significant for PVD S/P Rt BKA as per Dr King 12/09/16 transferred to ARU as per Dr Mcpherson 12/15/16. No acute medical complaints today. Pt states his pain has been controlled. Denies any fevers, chills, weakness, fatigue, Headache, Chest Pain, Shortness of breath, cough, palpitations, abdominal pain, N/V/D or changes in bowel or bladder habits. PMHx: HTN HLD PVD H/O DVT/PE Fe def anemia depression anxiety H/O TIA CAD Asthma PSHX: S/P Rt BKA 12/09/16 Vascular PTCA/Stent RLE 2016 Cardiac stent CABG x 1/bovine tricuspid VR 2015. H/O Colon Ca/S/P colon resection. Rt knee surgery deviated septum repair PE: GEN: 56yoM, appears stated age. Well-nourished, well developed. No acute distress. Alert and oriented x 3. Pleasant, interactive. HEENT: Normocephalic, atraumatic. Sclera are nonicteric. Conjunctiva without injection. Nose midline. Nasal turbinates without bogginess. No facial asymmetry. Moist mucous membranes. Dentition fair. Pharynx pink and moist, no cobblestoning. Neck supple, trachea midline. No lymphadenopathy or thyromegaly appreciated. CHEST: Regular rate and rhythm, +S1, +S2 LUNGS: Clear to auscultation bilaterally. No wheezes, rales, or rhonchi. Breathing appears symmetric and easy. Patient is speaking in full sentences. No accessory muscle use. ABD: Round, soft, non-tender, non-distended. +Bowel sounds throughout. No rebound or guarding. No costovertebral angle tenderness. EXT: Rt BKA, dressing intact. SKIN: [place], dry, warm. Capillary refill <2sec. No rashes. NEURO: Alert and oriented x 3. Cranial nerves III-XII are intact. No focal deficits appreciated. A&P: 56year oldM with a past medical history significant for PVD S/P Rt BKA as per Dr King 12/09/16 transferred to ARU as per Dr Mcpherson 12/15/16. 1. PVD/S/P Rt BKA. Following with Dr King. Management as per ARU/Dr Mcpherson. PT/OT as per Dr Mcpherson. Pain control as per Dr Mcpherson/Dr King. Bowel care as per ARU. DVT prophylaxis. Coumadin 8 mg daily. INR 2.49. 2. CAD/CABG. Coreg. 3. Depression/Anxiety. Management as per Psychiatry. 4. H/O DVT/PE. Coumadin as above. 5. post operative anemia. Hgb 9.4. Check Fe studies/B12/folate. 6. HLD. Lipitor. 7. HTN. Norvasc, Coreg, Catapres. BP controlled. VS, I&O, 24H, Fishbone Vital Signs/I&O Vital Signs Date Time Temp Pulse Resp B/P (MAP) Pulse Ox O2 Delivery O2 Flow Rate FiO2 12/27/16 08:47 20 Room Air 12/27/16 08:46 115/63 12/27/16 08:45 82 12/27/16 05:59 98.0 97 I&O- Last 24 Hours up to 6 AM 12/27/16 06:00 Intake Total 1060 ml Output Total 1900 ml Balance -840 ml Laboratory Data 24H LABS Laboratory Tests 2 12/27/16 06:20: Prothrombin Time 27.9H, Prothromb Time International Ratio 2.49 CBC/BMP Laboratory Tests 12/27/16 06:20 Red Blood Count 3.40 L, Mean Corpuscular Volume 90.8, Mean Corpuscular Hemoglobin 27.5, Mean Corpuscular Hemoglobin Concent 30.3 L, Red Cell Distribution Width 15.3 H Lolis Ford Dec 27, 2016 12:33
[2016-12-27 14:07] LABS: FOLATE 10.8 NG/ML (>5.4)
[2016-12-27 14:09] LABS: PERCENT SATURATION 8.8 % (19.7-37.4)
[2016-12-27 16:00] VITALS: BP 114/60
[2016-12-27] MEDS: WARFARIN SOD 4 MG TAB PO SCH (17:19)
[2016-12-27] MEDS: ACETAMINOPHEN TAB 650MG DOSE (2X325MG) PO PRN (19:45)
[2016-12-27 20:00] VITALS: BP 135/72
[2016-12-27] MEDS: ATORVASTATIN 20 MG TAB PO SCH (20:43)
[2016-12-27] MEDS: clonazePAM 0.5 MG TAB PO PRN (20:43)
[2016-12-27] MEDS: traZODone 50 MG TAB PO SCH (20:44)
--- NOTE | 2016-12-27 23:16 | IPNPDOC ---
Date Seen The patient was seen on 12/27/16. Progress Note SUBJECTIVE: Patient with some complaints of pain which are controlled well with pain medications. Patient is going home tomorrow. OBJECTIVE PHYSICAL EXAMINATION: VITAL SIGNS: Please see below. GENERAL: Awake alert with no apparent distress HEENT: Normal CARDIOVASCULAR: Regular rate and rhythm. RESPIRATORY: Clear to auscultation bilaterally. ABDOMINAL: Soft nontender nondistended EXTREMITIES: Right below-knee amputation stump is healing well with mild opening along the incision at the junction of the 3 flaps with serous drainage. The remainder of the incisions and the stump and in the femoral region are healing well. NEUROLOGICAL: Awake alert oriented x3 with no focal deficits PSYCHOLOGICAL: Mood is good no suicidal ideation. LABORATORY DATA: Please see below. MICROBIOLOGY: Please see below. IMAGING: None Echocardiogram: None. DVT prophylaxis ordered?: Patient therapeutic on Coumadin ASSESSMENT AND PLAN: This is a 56-year-old white male who underwent a right below-knee amputation due to severe atherosclerotic disease with multiple attempts at revascularization which are unsuccessful. Patient has undergone rehabilitation successfully and is doing well and is stable for discharge to home. PROBLEMS: 1. right lower extremity below-knee amputation: Wound is healing well patient will follow up in the office in one week patient will continue to apply dressings to the stump and femoral incisions for protection of the wounds. DISPOSITION: The patient is being discharged home on 12/28/2016 and will followup in my office in one week.. VS, I&O, 24H, Fishbone Vital Signs/I&O Vital Signs Date Time Temp Pulse Resp B/P (MAP) Pulse Ox O2 Delivery O2 Flow Rate FiO2 12/27/16 21:52 20 12/27/16 20:44 135/72 12/27/16 20:44 94 12/27/16 20:30 Room Air 12/27/16 20:00 98.8 100 I&O- Last 24 Hours up to 6 AM 12/27/16 06:00 Intake Total 1060 ml Output Total 1900 ml Balance -840 ml Laboratory Data 24H LABS Laboratory Tests 2 12/27/16 06:20: Prothrombin Time 27.9H, Prothromb Time International Ratio 2.49 12/27/16 13:12: Iron Level 23L, Total Iron Binding Capacity 262, Transferrin % Saturation 8.8L, Ferritin 131, Vitamin B12 Level 367, Folate 10.8 CBC/BMP Laboratory Tests 12/27/16 06:20 Red Blood Count 3.40 L, Mean Corpuscular Volume 90.8, Mean Corpuscular Hemoglobin 27.5, Mean Corpuscular Hemoglobin Concent 30.3 L, Red Cell Distribution Width 15.3 H Aquilino King MD Dec 27, 2016 23:16
[2016-12-28] MEDS: ACETAMINOPHEN TAB 650MG DOSE (2X325MG) PO PRN (05:19)
[2016-12-28 06:00] VITALS: BP 91/56
[2016-12-28] MEDS: oxyCODONE 5MG TAB PO PRN ×2 (06:37→12:17)
[2016-12-28 06:47] LABS: INR 2.37
[2016-12-28] MEDS ORDERED: [UNRECOGNIZED DRUG - SUPPLY] EX (08:38)
[2016-12-28] MEDS ORDERED: OXYC-403 PO (08:38)
[2016-12-28] MEDS ORDERED: OXYC-404 PO (08:38)
[2016-12-28] MEDS ORDERED: TRAZO50TA PO (08:38)
[2016-12-28] MEDS ORDERED: COUM1TAB14 PO (08:38)
[2016-12-28] MEDS ORDERED: [UNRECOGNIZED DRUG - CODE] EX (08:38)
[2016-12-28] MEDS: DULoxetine 30 MG CAP (CYMBALTA) PO SCH (09:18)
[2016-12-28] MEDS: cloNIDine 0.1 MG TAB PO SCH (09:19)
[2016-12-28 09:20] VITALS: BP 130/70
[2016-12-28] MEDS: SENOKOT S TAB PO SCH (09:20)
[2016-12-28] MEDS: amLODIPine 5 MG TAB PO SCH (09:20)
[2016-12-28] MEDS: CARVedilol 3.125 MG TAB PO SCH (09:20)
[2016-12-28] MEDS: DOCUSATE SODIUM 100 MG CAP PO SCH (09:20)
[2016-12-28] MEDS: PANTOPRAZOLE 40MG TAB (PROTONIX) PO SCH (09:20)
[2016-12-28] MEDS: GABAPENTIN 400 MG CAP PO SCH (09:20)
[2016-12-28] MEDS: oxyCODONE 15 MG CR TAB PO SCH (09:21)
--- NOTE | 2016-12-28 21:23 | PMRDS ---
DATE OF ADMISSION: 12/15/2016 DATE OF DISCHARGE: 12/28/2016 DISCHARGE DIAGNOSES: 1. Rehabilitation of right below knee amputation secondary to gangrenous right foot with extensive peripheral vascular disease and status post several revascularization procedures. 2. Atherosclerotic cardiovascular disease including peripheral vascular disease, hypertension, prior CVA, right lower extremity ischemia and deep venous thrombosis (DVT) with pulmonary embolus history. 3. History of diverticulosis and diverticulitis. 4. Moderate anemia with history of iron deficiency anemia. 5. History of colon cancer resection. HISTORY: Patient was admitted in November to [facility] and evaluated and had vascular procedures performed by Dr. Aquilino King, however patient was unable to show healing of the right lower extremity gangrene and ischemic areas of his foot and had, on 12/09/2016, a right below knee amputation. Patient medically improved and was able to start training with physical and occupational therapy to learn skills and was felt on 12/15/2016 to have reached a point where he was able to participate in and benefit from acute intensive rehabilitation. PROCEDURES PERFORMED DURING THIS ADMISSION: None. DIAGNOSTIC AND LABORATORY DATA: Patient followed for his anemia and initially elevated white count showing a white blood cell count of 10.7 on 12/15/2016, with a hemoglobin and hematocrit of 8.3 and 26.1, which on 12/27/2016 had normalized, the white blood cell count at 7.8 and the hemoglobin and hematocrit had improved to 9.4 and 30.9%. Patient also with hypoalbuminemia with an albumin of 2.1 on admission and during admission had had some mild hyponatremia found at 133. BUN also was mildly elevated during the admission, most recently at 24. Patient treated with Coumadin after initially being on heparin and Coumadin. Patient is now stabilized and today's INR is 2.37 with a target range of 2.0 to 3.0. HOSPITAL COURSE: Patient was admitted on 12/15/2016, to the acute rehabilitation unit and started evaluation in acute intensive rehabilitation with physical and occupational therapy. Patient initially very concerned about pain and anxious with some anxiety attacks that abated as we continued working with him and he realized the nature of care and treatment and that it was not causing progressive pain. Patient was also fitted with a [employer] sleeve and knee orthosis to protect the stump and also to help with knee extension which markedly improved his ability to keep the knee closer to full extension and show improvement from about 25 degrees of extension lag to what appears to be less than 10, and this markedly improved his overall comfort and pain control. In occupational therapy, the patient initially functioning on most transfers with contact guard assistance, bathing at standby assistance, and dressing upper body at standby assistance, dressing lower body at minimal assistance, toileting with contact guard assistance, using wheelchair with fair plus, standing static balance, standing dynamic balance, sitting, being good on both static and dynamic, to modified independence on transfers using wheelchair and independent in grooming, modified independent in toileting, meal preparation, and improving standing balance for static and dynamic to good, as well as learning his home program. In physical therapy, the patient progressed from just doing heel slide in exercises and only 15 feet of ambulation and 150 feet of wheelchair ambulation to greater than 1000 feet wheelchair, independent sit to stand and chair to bed, to chair transfers with approximately 50 feet of ambulation with two turns modified independence using front wheel walker and able to do several stairs with crutches. DISCHARGE MEDICATIONS: Include foam dressing for his below knee amputation (BKA) incision and vascular graft incision, covering Xeroform dressing, also OxyContin 20 mg twice a day for pain times 5 days, #10 tablets issued, and then OxyContin 10 mg twice a day for the next 5 days, #10 tablets issued. Patient will have further adjustment of pain medications by Dr. King who he should see at that time. Also, trazodone 150 mg nightly for sleep, Coumadin 8 mg by mouth daily, Scott Eddy will be receiving prothrombin time INRs from home care nursing and adjusting it as appropriate with target range of 2.0 to 3.0, the patient is issued 34 mg tablets. Also, Ventolin HFA two puffs four times a day as needed for shortness of breath, amlodipine 5 mg daily, atorvastatin 20 mg nightly, Coreg 3.125 mg by mouth twice a day, clonidine 0.1 mg by mouth three times a day, Cymbalta 30 mg by mouth daily, finasteride 5 mg by mouth daily, gabapentin 800 mg by mouth twice a day. Patient to see his primary care within 2 weeks [address] to see Dr[address] King, his vascular surgeon, within 2 weeks, and start home care nursing for wound care and to follow prothrombin time INRs and adjust Coumadin, along with home care physical therapy for ongoing preprosthetic training until Dr. King feels patient is ready to begin prosthetic training, having improved healing in his below knee amputation. Time spent on discharge was greater than 35 minutes.
[2016-12-29] MEDS ORDERED: ROXI1TAB2 PO (09:23)
[2017-01-30] MEDS ORDERED: ALPR0.25 PO (10:34)
[2017-01-30] MEDS ORDERED: HYDR-3716 PO (10:34)
== END 2016-12-28 13:30 | disposition home health service (06) | DRG 561 ==
LOC: M PM&R 16:43
PROVIDERS: ADMIT Physical Medicine & Rehabilitation; ATTEND Physical Medicine & Rehabilitation
DX: Z47.81 Encounter for orthopedic aftercare following surgical amputation (principal); I10 Essential (primary) hypertension; I70.221 Atherosclerosis of native arteries of extremities with rest pain, right leg; D50.9 Iron deficiency anemia, unspecified; K57.90 Diverticulosis of intestine, part unspecified, without perforation or abscess without bleeding; I25.10 Atherosclerotic heart disease of native coronary artery without angina pectoris; F41.9 Anxiety disorder, unspecified; G47.00 Insomnia, unspecified; F32.9 Major depressive disorder, single episode, unspecified; E78.5 Hyperlipidemia, unspecified; Z85.038 Personal history of other malignant neoplasm of large intestine; Z90.49 Acquired absence of other specified parts of digestive tract; Z86.73 Personal history of transient ischemic attack (TIA), and cerebral infarction without residual deficits; Z86.711 Personal history of pulmonary embolism; Z86.718 Personal history of other venous thrombosis and embolism; Z79.01 Long term (current) use of anticoagulants; Z79.891 Long term (current) use of opiate analgesic; Z79.899 Other long term (current) drug therapy; Z95.5 Presence of coronary angioplasty implant and graft

== ENCOUNTER → 2016-12-29 | Outpatient (REF) | payer MEDICARE, MEDICAID ==
[~2016-12-29] MED LIST changes: +ALPR0.25 PO; +COUM1TAB14 PO; +HYDR-3716 PO; +LIDO5TD TD; +OXYC-403 PO; +OXYC-404 PO; +OXYC1TAB23 PO; +OXYC30TA72 PO; +ROXI1TAB2 PO; +TRAZ50TA11 PO; +TRAZO50TA PO; +WARF-20 PO; +[UNRECOGNIZED DRUG - CODE] EX; +[UNRECOGNIZED DRUG - SUPPLY] EX
[2016-12-29 16:41] LABS: INR 1.97
== END ==
LOC: M SHH 16:19
PROVIDERS: ATTEND Physical Medicine & Rehabilitation
DX: Z51.81 Encounter for therapeutic drug level monitoring (principal); Z89.511 Acquired absence of right leg below knee; I73.9 Peripheral vascular disease, unspecified; Z79.01 Long term (current) use of anticoagulants

== ENCOUNTER 2017-01-02 07:35 | Emergency (ER) | payer MEDICAID, MEDICARE ==
[~2017-01-02] VITALS: Ht 188 cm; Wt 94.1 kg
[~2017-01-02 07:35] MED LIST changes: -ALPR0.25 PO; -HYDR-3716 PO; -LIDO5TD TD; -OXYC1TAB23 PO; -OXYC30TA72 PO; -TRAZ50TA11 PO; -WARF-20 PO
[2017-01-02] MEDS ORDERED: oxyCODONE 15 MG CR TAB PO ONE (08:30)
[2017-01-02 08:52] LABS: ADD MORPHOLOGY? YES; BASO # 0.1 K/mm3 (0.0-0.2); BASO % 0.7 % (0.0-1.0); EOS # 0.4 K/mm3 (0.0-0.50); EOS % 5.1 % (0.0-3.0); LARGE UNSTAINED CELL # 0.1 K/mm3 (0.0-0.4); LARGE UNSTAINED CELL % 0.9 % (0.0-4.0); LYMPH % 10.8 % (24.0-44.0); MEAN CORPUSCULAR HEMOGLOBIN 27.9 pg (27.0-33.0); MEAN CORPUSCULAR HGB CONC 31.2 g/dl (32.0-36.5); MEAN CORPUSCULAR VOLUME 89.4 fl (80.0-96.0); MONO # 0.5 K/mm3 (0.0-0.8); MONO % 5.8 % (0.0-5.0); NEUTROPHILS # 6.4 K/mm3 (1.8-7.7); NEUTROPHILS % 76.7 % (36.0-66.0); PLATELET COUNT, AUTOMATED 381 k/mm3 (150-450); RED CELL DISTRIBUTION WIDTH 15.6 % (11.5-14.5); WHITE BLOOD COUNT 8.4 K/mm3 (4.0-10.0)
[2017-01-02 08:59] LABS: INR 2.51
[2017-01-02] MEDS ORDERED: PANTOPRAZOLE 40MG INJ (PROTONIX) (C9113) IV ONE (09:00)
[2017-01-02 09:12] LABS: ANISOCYTOSIS 1+; HYPOCHROMASIA 2+; POLYCHROMASIA 2+
[2017-01-02 09:18] LABS: ANION GAP 4 MEQ/L (8-16); BLOOD UREA NITROGEN 21 MG/DL (7-18); CALCIUM LEVEL 8.4 MG/DL (8.5-10.1); CARBON DIOXIDE LEVEL 29 MEQ/L (21-32); CHLORIDE LEVEL 103 MEQ/L (98-107); CREATININE FOR GFR 1.06 MG/DL (0.70-1.30); GLOMERULAR FILTRATION RATE > 60.0 (>56); GLUCOSE, FASTING 84 MG/DL (70-105); POTASSIUM SERUM 4.1 MEQ/L (3.5-5.1); SODIUM LEVEL 136 MEQ/L (136-145)
--- NOTE | 2017-01-02 11:24 | REP ---
RIGHT INGUINAL DUPLEX DOPPLER ULTRASOUND: Real-time sonographic evaluation of the right inguinal region performed with duplex Doppler evaluation to evaluate for pseudoaneurysm. No pseudoaneurysm is seen in the right inguinal region. Hypoechoic area deep to an incision site in this region probably represents small hematoma. Underlying right superficial femoral artery and femoral graft appear occluded with no internal flow. Multiple mildly enlarged lymph nodes are present. The largest measures 3.3 x 1.4 x 1.7 cm. IMPRESSION: No evidence for right inguinal pseudoaneurysm. Mild right inguinal adenopathy. Right superficial femoral artery and femoral graft appear occluded. Signed by Alton Xiong MD 01/02/2017 07:28 P
[2017-01-02] MEDS ORDERED: PERCOCET 5MG/325MG TAB PO ONE (12:00)
[2017-01-02 14:10] VITALS: BP 109/68
[2017-01-30] MEDS ORDERED: ALPR0.25 PO (10:34)
[2017-01-30] MEDS ORDERED: HYDR-3716 PO (10:34)
== END 2017-01-02 14:12 | disposition home or self-care (01) ==
LOC: M ED 08:56
DX: G89.18 Other acute postprocedural pain (principal); L76.22 Postprocedural hemorrhage of skin and subcutaneous tissue following other procedure; Y83.8 Other surgical procedures as the cause of abnormal reaction of the patient, or of later complication, without mention of misadventure at the time of the procedure; I73.9 Peripheral vascular disease, unspecified; G43.909 Migraine, unspecified, not intractable, without status migrainosus; Z86.73 Personal history of transient ischemic attack (TIA), and cerebral infarction without residual deficits; Z95.1 Presence of aortocoronary bypass graft; Z87.891 Personal history of nicotine dependence; Z79.899 Other long term (current) drug therapy; Z79.01 Long term (current) use of anticoagulants

== ENCOUNTER → 2017-01-03 | Outpatient (REF) | payer MEDICARE ==
[~2017-01-03] MED LIST changes: +ALPR0.25 PO; +HYDR-3716 PO; +LIDO5TD TD; +OXYC1TAB23 PO; +OXYC30TA72 PO; +TRAZ50TA11 PO; +WARF-20 PO
[2017-01-03 16:37] LABS: INR 2.61
== END ==
LOC: M SHH 15:59
PROVIDERS: ATTEND Nurse Practitioner Family
DX: Z51.81 Encounter for therapeutic drug level monitoring (principal); Z79.01 Long term (current) use of anticoagulants; H34.232 Retinal artery branch occlusion, left eye; G46.4 Cerebellar stroke syndrome

== ENCOUNTER 2017-01-17 11:57 | Inpatient (IN) | payer MEDICARE, MEDICAID ==
[~2017-01-17] VITALS: Ht 188 cm; Wt 86.2 kg
[~2017-01-17 11:57] MED LIST changes: -ALPR0.25 PO; -HYDR-3716 PO; -LIDO5TD TD; -OXYC1TAB23 PO; -OXYC30TA72 PO; -TRAZ50TA11 PO; -WARF-20 PO
[2017-01-17 13:06] VITALS: BP 129/76
[2017-01-17 13:26] LABS: INR 2.37
[2017-01-17 13:44] LABS: ANION GAP 9 MEQ/L (8-16); BLOOD UREA NITROGEN 23 MG/DL (7-18); CALCIUM LEVEL 8.5 MG/DL (8.5-10.1); CARBON DIOXIDE LEVEL 26 MEQ/L (21-32); CHLORIDE LEVEL 104 MEQ/L (98-107); CREATININE FOR GFR 1.23 MG/DL (0.70-1.30); GLOMERULAR FILTRATION RATE > 60.0 (>56); GLUCOSE, FASTING 78 MG/DL (70-105); POTASSIUM SERUM 4.5 MEQ/L (3.5-5.1); SODIUM LEVEL 139 MEQ/L (136-145)
[2017-01-17 13:46] LABS: BASO # 0.1 K/mm3 (0.0-0.2); BASO % 0.8 % (0.0-1.0); EOS # 0.2 K/mm3 (0.0-0.50); EOS % 3.4 % (0.0-3.0); LARGE UNSTAINED CELL # 0.2 K/mm3 (0.0-0.4); LARGE UNSTAINED CELL % 2.6 % (0.0-4.0); LYMPH # 1.2 K/mm3 (1.5-4.5); LYMPH % 16.1 % (24.0-44.0); MEAN CORPUSCULAR HEMOGLOBIN 26.4 pg (27.0-33.0); MEAN CORPUSCULAR HGB CONC 30.4 g/dl (32.0-36.5); MEAN CORPUSCULAR VOLUME 86.8 fl (80.0-96.0); MONO # 0.5 K/mm3 (0.0-0.8); MONO % 7.5 % (0.0-5.0); NEUTROPHILS % 69.6 % (36.0-66.0); PLATELET COUNT, AUTOMATED 360 k/mm3 (150-450); RED CELL DISTRIBUTION WIDTH 15.4 % (11.5-14.5); WHITE BLOOD COUNT 7.2 K/mm3 (4.0-10.0)
[2017-01-17] MEDS: LR 1,000 ML IV SCH ×2 (13:47→20:15)
[2017-01-17] MEDS ORDERED: OXYC1TAB23 PO (14:32)
[2017-01-17] MEDS ORDERED: TRAZ50TA11 PO (14:32)
[2017-01-17] MEDS ORDERED: AMLO5TAB2 PO (14:32)
[2017-01-17] MEDS ORDERED: DULO1CAP2 PO (14:32)
[2017-01-17] MEDS ORDERED: CLON-412 PO (14:32)
[2017-01-17] MEDS ORDERED: ATOR1TAB21 PO (14:32)
[2017-01-17] MEDS ORDERED: OXYC30TA72 PO (14:32)
[2017-01-17] MEDS ORDERED: FINA5TAB2 PO (14:32)
[2017-01-17] MEDS ORDERED: WARF-20 PO (14:32)
[2017-01-17] MEDS ORDERED: GABA800T PO (14:32)
[2017-01-17] MEDS ORDERED: ALBU17IN INH (14:32)
[2017-01-17] MEDS ORDERED: CARV3.12 PO (14:32)
[2017-01-17] MEDS: PERCOCET 5MG/325MG TAB PO PRN (14:45)
[2017-01-17] MEDS: PIPERACILLIN/TAZOBACTAM SOD 3.375 GM in D5W MINI-BAG PLUS 50 ML IV SCH ×2 (14:45→21:59)
[2017-01-17 16:00] VITALS: BP 138/68
[2017-01-17] MEDS ORDERED: ALBUTEROL 90 MCG/ACT 8GM HFA INHALER INH PRN (17:45)
[2017-01-17] MEDS ORDERED: LIDOCAINE 1% SDV INJ 30 ML VIAL As Ordered ONE (18:09)
[2017-01-17] MEDS ORDERED: THROMBIN SOLN 20,000 UNITS KIT As Ordered ONE (18:09)
[2017-01-17] MEDS ORDERED: BUPIVACAINE HCL 0.5% 30 ML VIAL As Ordered ONE (18:09)
[2017-01-17] MEDS ORDERED: HEPARIN SOD (PORCINE) 5000 UNITS/ML VIAL As Ordered ONE (18:09)
[2017-01-17] MEDS ORDERED: ISOVUE-300 61% 50ML VIAL (Q9967) As Ordered ONE (18:13)
[2017-01-17] MEDS ORDERED: LIDOCAINE 2% INJ 100 MG/5 ML SDV (FOR ANES.) As Ordered ONE (18:40)
[2017-01-17] MEDS ORDERED: ONDANSETRON 4MG/2ML VIAL (J2405) As Ordered ONE (18:40)
[2017-01-17] MEDS ORDERED: MIDAZOLAM INJ 2 MG/2 ML VIAL (J2250) As Ordered ONE (18:40)
[2017-01-17] MEDS ORDERED: dexameTHASONE 4 MG/ML 1ML VIAL (J1100) As Ordered ONE (18:40)
[2017-01-17] MEDS ORDERED: PROPOFOL 200 MG/20 ML VIAL As Ordered ONE (18:40)
[2017-01-17] MEDS ORDERED: fentaNYL 250 MCG/5 ML INJECTION (J3010) As Ordered ONE (18:40)
[2017-01-17] MEDS ORDERED: GENTAMICIN SULF INJ 80MG/2ML VIAL (J1580) As Ordered ONE (18:43)
[2017-01-17] MEDS ORDERED: HYDROmorphone HCL 2 MG/ML 1ML VIAL (J1170) As Ordered ONE (19:10)
[2017-01-17 20:04] LABS: MEAN CORPUSCULAR HEMOGLOBIN 27.3 pg (27.0-33.0); MEAN CORPUSCULAR HGB CONC 31.5 g/dl (32.0-36.5); MEAN CORPUSCULAR VOLUME 86.9 fl (80.0-96.0); RED CELL DISTRIBUTION WIDTH 15.5 % (11.5-14.5); WHITE BLOOD COUNT 13.2 K/mm3 (4.0-10.0)
[2017-01-17] MEDS ORDERED: fentaNYL 100 MCG/2 ML INJECTION (J3010) As Ordered ONE (21:07)
[2017-01-17] MEDS ORDERED: PERCOCET 5MG/325MG TAB As Ordered ONE (21:07)
[2017-01-17] MEDS ORDERED: LABETALOL HCL 100 MG/20 ML VIAL As Ordered ONE (21:09)
[2017-01-17] MEDS: fentaNYL 100 MCG/2 ML INJECTION (J3010) IV PRN ×4 (21:11→21:37)
[2017-01-17] MEDS ORDERED: METOCLOPRAMIDE INJ 10MG/2ML VIAL (J2765) IV PRN (21:15)
[2017-01-17] MEDS ORDERED: LR 1,000 ML IV SCH (21:15)
[2017-01-17] MEDS ORDERED: PERCOCET 5MG/325MG TAB PO PRN (21:15)
[2017-01-17] MEDS ORDERED: ONDANSETRON 4MG/2ML VIAL (J2405) IV PRN (21:15)
[2017-01-17] MEDS ORDERED: MEPERIDINE INJ 25 MG/ML VIAL (J2175) IV PRN (21:15)
[2017-01-17] MEDS ORDERED: ZOSYN 3.375 GM VIAL (J2543) As Ordered ONE (21:55)
[2017-01-18] VITALS (8 sets, daily range): BP systolic 125–160; BP diastolic 59–83
[2017-01-18] MEDS: CARVedilol 3.125 MG TAB PO SCH ×3 (00:32→20:07)
[2017-01-18] MEDS: WARFARIN SOD 4 MG TAB PO SCH ×2 (00:32→18:20)
[2017-01-18] MEDS: DULoxetine 30 MG CAP (CYMBALTA) PO SCH ×3 (00:33→20:06)
[2017-01-18] MEDS: cloNIDine 0.1 MG TAB PO SCH ×4 (00:33→20:06)
[2017-01-18] MEDS: ATORVASTATIN 20 MG TAB PO SCH ×2 (00:33→20:06)
[2017-01-18] MEDS: PERCOCET 5MG/325MG TAB PO PRN ×5 (00:34→22:00)
[2017-01-18] MEDS: oxyCODONE 15 MG CR TAB PO SCH ×3 (00:45→20:05)
[2017-01-18] MEDS: GABAPENTIN 400 MG CAP PO SCH ×4 (00:45→20:06)
[2017-01-18] MEDS: traZODone 50 MG TAB PO PRN (01:35)
[2017-01-18] MEDS: PIPERACILLIN/TAZOBACTAM SOD 3.375 GM in D5W MINI-BAG PLUS 50 ML IV SCH ×4 (01:35→20:04)
[2017-01-18] MEDS: LR 1,000 ML IV SCH ×3 (05:43→21:26)
[2017-01-18 05:59] LABS: INR 2.99
[2017-01-18 06:05] LABS: MEAN CORPUSCULAR HEMOGLOBIN 27.8 pg (27.0-33.0); MEAN CORPUSCULAR HGB CONC 32.4 g/dl (32.0-36.5); MEAN CORPUSCULAR VOLUME 85.8 fl (80.0-96.0); RED CELL DISTRIBUTION WIDTH 15.4 % (11.5-14.5); WHITE BLOOD COUNT 9.2 K/mm3 (4.0-10.0)
[2017-01-18 06:14] LABS: ANION GAP 8 MEQ/L (8-16); BLOOD UREA NITROGEN 19 MG/DL (7-18); CALCIUM LEVEL 8.3 MG/DL (8.5-10.1); CARBON DIOXIDE LEVEL 26 MEQ/L (21-32); CHLORIDE LEVEL 105 MEQ/L (98-107); CREATININE FOR GFR 1.23 MG/DL (0.70-1.30); GLOMERULAR FILTRATION RATE > 60.0 (>56); GLUCOSE, FASTING 162 MG/DL (70-105); POTASSIUM SERUM 4.4 MEQ/L (3.5-5.1); SODIUM LEVEL 139 MEQ/L (136-145)
[2017-01-18] MEDS: FINASTERIDE 5 MG TAB PO SCH (08:20)
[2017-01-18] MEDS: amLODIPine 5 MG TAB PO SCH (08:21)
[2017-01-18] MEDS ORDERED: MORPHINE 10 MG/ML 1ML VIAL As Ordered ONE (11:39)
[2017-01-18] MEDS ORDERED: MORPHINE 10 MG/ML 1ML VIAL IM ONE (12:00)
[2017-01-18] MEDS ORDERED: MORPHINE 10 MG/ML 1ML VIAL IV ONE (12:00)
[2017-01-18] MEDS ORDERED: ISOVUE-370 76% 100ML VIAL (Q9967) As Ordered ONE (17:09)
--- NOTE | 2017-01-18 21:05 | REP ---
CT ANGIOGRAM OF ABDOMINAL AORTA AND BILATERAL LOWER EXTREMITIES: CT angiogram of the abdominal aorta and bilateral lower extremities performed following the intravenous administration of 100 mL of Isovue-370. Sagittal, coronal and 3D reconstruction images are performed. The abdominal aorta demonstrates mild scattered atherosclerotic plaquing with no aneurysm or dissection. Celiac and superior mesenteric arteries are patent with no stenosis. Inferior mesenteric artery is also patent. There is no definite stenosis of the right renal artery. There are three small left renal arteries present. There is a right iliac stent which extends from the origin of the common iliac artery to the proximal external iliac artery. Flow is seen within the stent, but it becomes occluded in the distal third. This is just distal to the origin of the external iliac artery. There is flow seen in the right internal iliac artery. There is no flow within the right external iliac artery more distally nor in the right common femoral artery. There appears to be a right superficial femoral artery graft with no internal flow. There is flow seen in several collateral vessels in the deep soft tissues reconstituting a portion of the right profunda artery. Otherwise there are some tiny collateral vessels seen within the soft tissues of the thigh. On the left, a common iliac stent extends into the left external iliac artery. Flow is seen within the stent. There is moderate diffuse narrowing of the more distal left iliac artery. There is high grade stenosis at the junction of the left external iliac and common femoral arteries with moderate diffuse narrowing of the remaining left common femoral artery. There is occlusion at the origin of the left superficial femoral artery. The left profunda is patent with multiple collateral vessels traversing distally to reconstitute the distal third of the left superficial femoral artery. The high grade stenosis at the junction of the left external iliac and common femoral arteries has worsened since the prior study of 01/13/2016. The occlusion of the origin of the left superficial femoral artery with reconstitution distally appears unchanged. Left popliteal artery is mildly diffusely narrowed. Left anterior tibial artery is diffusely thinned, but does traverse into the left foot. There is atherosclerotic calcification of the tibial peroneal trunk. The posterior tibial artery appears to become occluded in the [place]cal[place] but is reconstituted distally traversing into the foot. Peroneal artery provides collateral flow to the reconstituted portion of the posterior tibial artery. There are fibrotic changes in the visualized lung bases. Metallic surgical clips are seen in the right inguinal region with a drain coursing along the right common femoral and iliac vessels. There is extensive sigmoid diverticulosis. There appear to be a few small cysts in the liver. There are bilateral renal cysts. IMPRESSION: Right common iliac and external iliac stent demonstrates patent flow, but appears to become occluded in its distal aspect. The [place] distal right external iliac artery also demonstrates no flow. There is no flow seen in the right common femoral artery or [place] superficial femoral artery. No flow is seen in an apparent graft coursing in the right thigh soft tissues. A left common iliac and external iliac stent demonstrates internal flow. There is high grade stenosis at the junction between the [place] left external iliac artery and common femoral artery. There is once again, occlusion at the origin of the left superficial femoral artery with profunda collaterals reconstituting the distal left superficial femoral artery. There is two vessel runoff into the left foot. Signed by Alton Xiong MD 01/19/2017 04:50 P
[2017-01-18] MEDS ORDERED: ONDANSETRON 4MG/2ML VIAL (J2405) IV PRN (22:00)
--- NOTE | 2017-01-18 23:40 | IPNPDOC ---
Date Seen The patient was seen on 01/18/17. Progress Note SUBJECTIVE: Patient is with pain in the right lower extremity which is controlled fairly well. OBJECTIVE PHYSICAL EXAMINATION: VITAL SIGNS: Please see below. GENERAL: Awake lying in bed in no apparent distress HEENT: Normal CARDIOVASCULAR: regular rate and rhythm. RESPIRATORY: Clear to auscultation bilaterally. ABDOMINAL: Soft nontender nondistended with no palpable or pulsatile masses EXTREMITIES: Left lower extremity is well-perfused. Right femoral incision is clean with no signs of bleeding and a CELESTINE drain is in place. Right below knee amputation stump is necrotic and with signs of ischemia and a flexion contracture. NEUROLOGICAL: Awake alert oriented x3 with no focal deficits PSYCHOLOGICAL: Normal LABORATORY DATA: Please see below. MICROBIOLOGY: Please see below. DVT prophylaxis ordered?: Patient is therapeutic on Coumadin ASSESSMENT AND PLAN: This is a 57-year-old white male with removal of his infected right femoral to popliteal artery bypass graft and debridement of his right below knee amputation stump. PROBLEMS: 1. the right femoral wound is clean with no signs of bleeding: CELESTINE will remain in place for another 24-48 hours. 2. necrotic right below knee amputation stump: She'll undergo a CT angiogram of the lower extremities to evaluate inflow to the right below-knee amputation stump to determine whether the patient should undergo aggressive wound care or proceed to a right above-knee amputation. VS, I&O, 24H, [facility] Vital Signs/I&O Vital Signs Date Time Temp Pulse Resp B/P (MAP) Pulse Ox O2 Delivery O2 Flow Rate FiO2 01/18/17 22:30 18 Room Air 01/18/17 20:07 73 01/18/17 20:06 133/64 01/18/17 18:10 98.1 97 01/17/17 21:19 3.0 I&O- Last 24 Hours up to 6 AM 01/18/17 05:59 Intake Total 3480 ml Output Total 1470 ml Balance 2010 ml Laboratory Data 24H LABS Laboratory Tests 2 01/18/17 05:36: Prothrombin Time 32.4H, Prothromb Time International Ratio 2.99, Activated Partial Thromboplast Time 61.8H, Anion Gap 8, Glomerular Filtration Rate > 60.0 , Blood Urea Nitrogen 19H, Creatinine 1.23, Sodium Level 139, Potassium Level 4.4, Chloride Level 105, Carbon Dioxide Level 26, Calcium Level 8.3L CBC/BMP Laboratory Tests 8/8/17 05:36 Red Blood Count 3.20 L, Mean Corpuscular Volume 85.8, Mean Corpuscular Hemoglobin 27.8, Mean Corpuscular Hemoglobin Concent 32.4, Red Cell Distribution Width 15.4 H, Calcium Level 8.3 L Aquilino King MD Jan 18, 2017 23:39
[2017-01-19 02:00] VITALS: BP 105/58
[2017-01-19] MEDS: PIPERACILLIN/TAZOBACTAM SOD 3.375 GM in D5W MINI-BAG PLUS 50 ML IV SCH ×4 (02:31→20:24)
[2017-01-19] MEDS: PERCOCET 5MG/325MG TAB PO PRN ×5 (02:31→22:34)
[2017-01-19] MEDS: LR 1,000 ML IV SCH ×3 (03:56→20:15)
[2017-01-19 06:00] VITALS: BP 143/86
[2017-01-19] MEDS: oxyCODONE 15 MG CR TAB PO SCH ×2 (08:45→20:31)
[2017-01-19] MEDS: GABAPENTIN 400 MG CAP PO SCH ×3 (08:46→20:31)
[2017-01-19] MEDS: cloNIDine 0.1 MG TAB PO SCH ×3 (08:46→20:32)
[2017-01-19] MEDS: amLODIPine 5 MG TAB PO SCH (08:46)
[2017-01-19] MEDS: FINASTERIDE 5 MG TAB PO SCH (08:46)
[2017-01-19] MEDS: DULoxetine 30 MG CAP (CYMBALTA) PO SCH ×2 (08:46→20:33)
[2017-01-19] MEDS: CARVedilol 3.125 MG TAB PO SCH ×2 (08:47→20:33)
[2017-01-19 10:00] VITALS: BP 141/80
[2017-01-19 14:00] VITALS: BP 148/67
[2017-01-19] MEDS: WARFARIN SOD 4 MG TAB PO SCH (17:00)
[2017-01-19 18:00] VITALS: BP 148/68
[2017-01-19] MEDS: ATORVASTATIN 20 MG TAB PO SCH (20:33)
--- NOTE | 2017-01-19 21:57 | IPNPDOC ---
Date Seen The patient was seen on 01/19/17. Progress Note SUBJECTIVE: Patient is with mild pain in his right lower extremity OBJECTIVE PHYSICAL EXAMINATION: VITAL SIGNS: Please see below. GENERAL: Lying in bed in no apparent distress HEENT: Normal CARDIOVASCULAR: Regular rate and rhythm RESPIRATORY: Clear to auscultation.. ABDOMINAL: Soft nontender nondistended EXTREMITIES: Right lower extremity below-knee amputation stump shows a large amount of necrosis and ischemic changes of the muscle. Right groin incision is clean dry and intact with CELESTINE in place. NEUROLOGICAL: Awake alert oriented x3 PSYCHOLOGICAL: Stable LABORATORY DATA: Please see below. MICROBIOLOGY: Please see below. I DVT prophylaxis ordered?: Patient is therapeutic on Coumadin ASSESSMENT AND PLAN: This is a 57-year-old white male with severe right lower extremity atherosclerotic arterial occlusive disease who underwent a right below -knee amputation which is nonhealing and shows necrosis of the muscle in the stump. The patient also had bleeding from the right femoral incision and underwent movable of the previous I past grafts and patch angioplasty of the femoral arteriotomy. Patient underwent a CT angiogram which showed occlusion of the right external iliac artery with collaterals filling the profunda into the right lower extremity.. PROBLEMS: 1. right lower extremity arterial atherosclerotic occlusive disease and necrotic below-knee amputation stump.: Patient will require an above-knee amputation but prior to undergoing above-knee amputation the patient will require revascularization of his right external iliac artery which is occluded. VS, I&O, 24H, Fishbone Vital Signs/I&O Vital Signs Date Time Temp Pulse Resp B/P (MAP) Pulse Ox O2 Delivery O2 Flow Rate FiO2 01/19/17 20:33 72 01/19/17 20:32 140/67 01/19/17 20:31 18 01/19/17 18:00 98.5 100 Room Air 01/17/17 21:19 3.0 I&O- Last 24 Hours up to 6 AM 01/19/17 06:00 Intake Total 3680 ml Output Total 3185 ml Balance 495 ml Aquilino King MD Jan 19, 2017 21:57
[2017-01-19 22:00] VITALS: BP 140/67
[2017-01-20 02:00] VITALS: BP 161/96
[2017-01-20] MEDS: PIPERACILLIN/TAZOBACTAM SOD 3.375 GM in D5W MINI-BAG PLUS 50 ML IV SCH ×4 (02:26→20:18)
[2017-01-20] MEDS: PERCOCET 5MG/325MG TAB PO PRN ×5 (02:38→23:59)
[2017-01-20] MEDS: LR 1,000 ML IV SCH ×3 (04:02→21:05)
[2017-01-20 06:00] VITALS: BP 170/82
[2017-01-20] MEDS: oxyCODONE 15 MG CR TAB PO SCH ×2 (10:02→20:20)
[2017-01-20] MEDS: FINASTERIDE 5 MG TAB PO SCH (10:03)
[2017-01-20] MEDS: amLODIPine 5 MG TAB PO SCH (10:03)
[2017-01-20] MEDS: CARVedilol 3.125 MG TAB PO SCH ×2 (10:03→20:22)
[2017-01-20] MEDS: DULoxetine 30 MG CAP (CYMBALTA) PO SCH ×2 (10:03→20:21)
[2017-01-20] MEDS: GABAPENTIN 400 MG CAP PO SCH ×3 (10:03→20:21)
[2017-01-20] MEDS: cloNIDine 0.1 MG TAB PO SCH ×3 (10:04→20:22)
[2017-01-20] MEDS ORDERED: MORPHINE 10 MG/ML 1ML VIAL IV ONE (10:30)
[2017-01-20] MEDS ORDERED: MORPHINE 10 MG/ML 1ML VIAL As Ordered ONE (10:35)
[2017-01-20 11:20] LABS: MEAN CORPUSCULAR HEMOGLOBIN 26.9 pg (27.0-33.0); MEAN CORPUSCULAR VOLUME 86.7 fl (80.0-96.0); RED CELL DISTRIBUTION WIDTH 15.5 % (11.5-14.5); WHITE BLOOD COUNT 9.6 K/mm3 (4.0-10.0)
[2017-01-20 11:27] LABS: INR 3.58
[2017-01-20 12:40] LABS: ANION GAP 11 MEQ/L (8-16); BLOOD UREA NITROGEN 12 MG/DL (7-18); CALCIUM LEVEL 8.6 MG/DL (8.5-10.1); CARBON DIOXIDE LEVEL 27 MEQ/L (21-32); CHLORIDE LEVEL 101 MEQ/L (98-107); CREATININE FOR GFR 0.92 MG/DL (0.70-1.30); GLOMERULAR FILTRATION RATE > 60.0 (>56); GLUCOSE, FASTING 137 MG/DL (70-105); POTASSIUM SERUM 3.9 MEQ/L (3.5-5.1); SODIUM LEVEL 139 MEQ/L (136-145)
[2017-01-20 14:00] VITALS: BP 131/60
[2017-01-20] MEDS: WARFARIN SOD 4 MG TAB PO SCH (17:00)
[2017-01-20 18:00] VITALS: BP 150/71
[2017-01-20] MEDS: ATORVASTATIN 20 MG TAB PO SCH (20:20)
[2017-01-20] MEDS: traZODone 50 MG TAB PO PRN (20:21)
[2017-01-20] MEDS ORDERED: MOM 30ML SUSPENSION UDC PO ONE (21:00)
[2017-01-20] MEDS: SENNA 8.6 MG TAB (SENOKOT) PO SCH (21:04)
[2017-01-20] MEDS: DOCUSATE SODIUM 100 MG CAP PO SCH (21:04)
[2017-01-20 22:00] VITALS: BP 146/78
--- NOTE | 2017-01-20 23:24 | IPNPDOC ---
Date Seen The patient was seen on 01/20/17. Progress Note SUBJECTIVE: Patient is asleep in bed. Upon awakening the patient he states he is in 10 out of 10 pain in his right lower extremity. OBJECTIVE PHYSICAL EXAMINATION: VITAL SIGNS: Please see below. GENERAL: Asleep in bed in no apparent distress until woken up and then complaining of severe right lower extremity pain HEENT: Normal CARDIOVASCULAR: Regular rate and rhythm. RESPIRATORY: Clear to auscultation bilaterally. ABDOMINAL: Soft nontender nondistended EXTREMITIES: Right lower extremity shows a flexion contracture and severe necrosis of the right below-knee amputation stump. The right femoral incision is clean dry and intact, with a CELESTINE and place. NEUROLOGICAL: Awake alert oriented x3 with no focal deficits PSYCHOLOGICAL: Normal LABORATORY DATA: Please see below. MICROBIOLOGY: Please see below. IMAGING: CT scan to be shows occlusion of the right external and proximal common femoral arteries DVT prophylaxis ordered?: Patient is therapeutic on Coumadin ASSESSMENT AND PLAN: This is a 57-year-old white male with right lower extremity ischemia who underwent multiple attempts at revascularization of the right lower extremity which were unsuccessful and subsequently the patient required a right below-knee amputation. The patient was recently admitted with bleeding from the right femoral incision and required exploration and removal of the infected bypass grafts on the right femoral wound with patch angioplasty of the right common femoral artery. Patient has necrosis of the right below knee amputation stump. PROBLEMS: 1. necrosis of the right below-knee amputation stump: The patient requires an above-knee amputation. 2. right lower extremity atherosclerotic arterial occlusive disease: Patient has occlusion of the right external iliac artery and proximal common femoral artery and it may require angioplasty with possible stenting and/or surgical revision. 3. poor pain control: Patient complains of 10 out of 10 pain throughout most of the day and night but frequently is sound asleep and resting comfortably when I entered the room. Patient's family has requested a psychiatric evaluation for help with his coping with the medical situations and pain. DISPOSITION: Patient will require a right above-knee amputation and possible angiography of the right lower extremity with angioplasty, stent and or surgical revision. This will be set up in the next 24-48 hours. VS, I&O, 24H, Fishbone Vital Signs/I&O Vital Signs Date Time Temp Pulse Resp B/P (MAP) Pulse Ox O2 Delivery O2 Flow Rate FiO2 01/20/17 20:22 68 146/78 8/10/17 20:20 18 01/20/17 18:00 97.8 97 Room Air 01/17/17 21:19 3.0 I&O- Last 24 Hours up to 6 AM 01/20/17 05:59 Intake Total 3230 ml Output Total 3435 ml Balance -205 ml Laboratory Data 24H LABS Laboratory Tests 2 01/20/17 11:02: Prothrombin Time 37.5H, Prothromb Time International Ratio 3.58, Anion Gap 11, Glomerular Filtration Rate > 60.0, Blood Urea Nitrogen 12, Creatinine 0.92, Sodium Level 139, Potassium Level 3.9, Chloride Level 101, Carbon Dioxide Level 27, Calcium Level 8.6 CBC/BMP Laboratory Tests 01/20/17 11:02 Red Blood Count 3.45 L, Mean Corpuscular Volume 86.7, Mean Corpuscular Hemoglobin 26.9 L, Mean Corpuscular Hemoglobin Concent 31.0 L, Red Cell Distribution Width 15.5 H, Calcium Level 8.6 Aquilino King MD Jan 20, 2017 23:24
[2017-01-21] VITALS (10 sets, daily range): BP systolic 114–168; BP diastolic 70–88
[2017-01-21] MEDS: PIPERACILLIN/TAZOBACTAM SOD 3.375 GM in D5W MINI-BAG PLUS 50 ML IV SCH ×4 (02:34→21:50)
[2017-01-21] MEDS: PERCOCET 5MG/325MG TAB PO PRN ×2 (04:04→10:02)
[2017-01-21] MEDS: LR 1,000 ML IV SCH ×2 (04:15→12:15)
[2017-01-21] MEDS: DOCUSATE SODIUM 100 MG CAP PO SCH ×3 (06:23→21:51)
[2017-01-21] MEDS ORDERED: MORPHINE 10 MG/ML 1ML VIAL IV ONE ×2 (06:45→10:30)
[2017-01-21] MEDS: FINASTERIDE 5 MG TAB PO SCH (08:41)
[2017-01-21] MEDS: oxyCODONE 15 MG CR TAB PO SCH (08:41)
[2017-01-21] MEDS: DULoxetine 30 MG CAP (CYMBALTA) PO SCH ×2 (08:42→21:51)
[2017-01-21] MEDS: GABAPENTIN 400 MG CAP PO SCH ×3 (08:42→21:51)
[2017-01-21] MEDS: cloNIDine 0.1 MG TAB PO SCH ×3 (08:42→21:53)
[2017-01-21] MEDS: amLODIPine 5 MG TAB PO SCH (08:42)
[2017-01-21] MEDS: CARVedilol 3.125 MG TAB PO SCH ×2 (09:00→21:52)
[2017-01-21 11:00] LABS: BASO # 0.1 K/mm3 (0.0-0.2); BASO % 0.8 % (0.0-1.0); EOS # 0.3 K/mm3 (0.0-0.50); EOS % 3.8 % (0.0-3.0); LARGE UNSTAINED CELL # 0.1 K/mm3 (0.0-0.4); LARGE UNSTAINED CELL % 0.9 % (0.0-4.0); LYMPH # 1.3 K/mm3 (1.5-4.5); LYMPH % 14.6 % (24.0-44.0); MEAN CORPUSCULAR HEMOGLOBIN 26.7 pg (27.0-33.0); MEAN CORPUSCULAR HGB CONC 30.9 g/dl (32.0-36.5); MEAN CORPUSCULAR VOLUME 86.5 fl (80.0-96.0); MONO # 0.5 K/mm3 (0.0-0.8); MONO % 5.8 % (0.0-5.0); NEUTROPHILS % 74.1 % (36.0-66.0); PLATELET COUNT, AUTOMATED 436 k/mm3 (150-450); RED CELL DISTRIBUTION WIDTH 15.8 % (11.5-14.5); WHITE BLOOD COUNT 8.1 K/mm3 (4.0-10.0)
[2017-01-21 11:02] LABS: INR 3.04
[2017-01-21 11:30] LABS: ANION GAP 10 MEQ/L (8-16); BLOOD UREA NITROGEN 12 MG/DL (7-18); CALCIUM LEVEL 8.9 MG/DL (8.5-10.1); CARBON DIOXIDE LEVEL 26 MEQ/L (21-32); CHLORIDE LEVEL 105 MEQ/L (98-107); CREATININE FOR GFR 0.99 MG/DL (0.70-1.30); GLOMERULAR FILTRATION RATE > 60.0 (>56); GLUCOSE, FASTING 84 MG/DL (70-105); SODIUM LEVEL 141 MEQ/L (136-145)
[2017-01-21] MEDS ORDERED: fentaNYL 100 MCG/2 ML INJECTION (J3010) As Ordered ONE ×4 (12:02→15:10)
[2017-01-21] MEDS ORDERED: MIDAZOLAM INJ 2 MG/2 ML VIAL (J2250) As Ordered ONE (12:03)
[2017-01-21] MEDS ORDERED: HYDROmorphone HCL 2 MG/ML 1ML VIAL (J1170) As Ordered ONE ×2 (13:14→13:53)
[2017-01-21] MEDS ORDERED: dexameTHASONE 4 MG/ML 1ML VIAL (J1100) As Ordered ONE (13:37)
[2017-01-21] MEDS ORDERED: ONDANSETRON 4MG/2ML VIAL (J2405) As Ordered ONE (13:37)
[2017-01-21] MEDS ORDERED: ePHEDrine SULFATE 25 MG/5 ML(5MG/ML) SYRINGE As Ordered ONE (13:39)
[2017-01-21] MEDS ORDERED: NS 1,000 ML IV SCH (14:00)
[2017-01-21] MEDS ORDERED: ONDANSETRON 4MG/2ML VIAL (J2405) IV PRN ×3 (14:00→15:45)
[2017-01-21] MEDS ORDERED: NALBUPHINE HCL 10 MG/ML AMP (J2300) IV PRN (14:00)
[2017-01-21] MEDS ORDERED: EPIDURAL/PCA KEYS XX PRN (14:00)
[2017-01-21] MEDS ORDERED: diphenhydrAMINE INJ 50MG/ML VIAL (J1200) IV PRN (14:00)
[2017-01-21] MEDS ORDERED: NALOXONE INJ 0.4 MG/1 ML VIAL (J2310) IV PRN (14:00)
[2017-01-21] MEDS ORDERED: HYDROmorphone HCL 1 MG/ML SYRINGE (J1170) As Ordered ONE ×2 (14:23→14:44)
[2017-01-21] MEDS ORDERED: MORPHINE 1MG/ML IN 0.9% NACL 100ML IV BAG As Ordered ONE (14:24)
[2017-01-21] MEDS: HYDROmorphone HCL 1 MG/ML SYRINGE (J1170) IV PRN ×6 (14:25→14:55)
[2017-01-21] MEDS ORDERED: PERCOCET 5MG/325MG TAB PO PRN ×2 (14:30→15:45)
[2017-01-21] MEDS ORDERED: MEPERIDINE INJ 25 MG/ML VIAL (J2175) IV PRN ×2 (14:30→15:45)
[2017-01-21] MEDS ORDERED: LR 1,000 ML IV SCH ×2 (14:30→15:45)
[2017-01-21] MEDS ORDERED: METOCLOPRAMIDE INJ 10MG/2ML VIAL (J2765) IV PRN ×2 (14:30→15:45)
[2017-01-21] MEDS: fentaNYL 100 MCG/2 ML INJECTION (J3010) IV PRN ×4 (15:10→15:30)
[2017-01-21] MEDS ORDERED: LABETALOL HCL 100 MG/20 ML VIAL As Ordered ONE (15:26)
[2017-01-21] MEDS ORDERED: PERCOCET 5MG/325MG TAB As Ordered ONE (15:38)
[2017-01-21] MEDS: LABETALOL HCL 100 MG/20 ML VIAL IV PRN ×5 (15:40→16:53)
[2017-01-21] MEDS ORDERED: fentaNYL 100 MCG/2 ML INJECTION (J3010) IV PRN (15:45)
[2017-01-21] MEDS ORDERED: HYDROmorphone HCL 1 MG/ML SYRINGE (J1170) IV PRN (15:45)
[2017-01-21] MEDS ORDERED: hydrALAZINE INJ 20 MG/ML VIAL As Ordered ONE (17:10)
[2017-01-21] MEDS: hydrALAZINE INJ 20 MG/ML VIAL IV SCH ×2 (17:17→17:38)
[2017-01-21] MEDS: SENNA 8.6 MG TAB (SENOKOT) PO SCH (21:51)
[2017-01-21] MEDS: ATORVASTATIN 20 MG TAB PO SCH (21:51)
--- NOTE | 2017-01-21 22:56 | IPNPDOC ---
Date Seen The patient was seen on 01/21/17. Progress Note SUBJECTIVE: Patient is lying in bed comfortably OBJECTIVE PHYSICAL EXAMINATION: VITAL SIGNS: Please see below. GENERAL: Lying in bed comfortably HEENT: Normal CARDIOVASCULAR: Regular rate and rhythm. RESPIRATORY: Clear to auscultation bilaterally. ABDOMINAL: Soft nontender nondistended with no palpable pulsatile masses. EXTREMITIES: Right above-knee amputation stump is dressed and stable NEUROLOGICAL: Awake alert oriented x3 PSYCHOLOGICAL: Stable LABORATORY DATA: Please see below. MICROBIOLOGY: Please see below. DVT prophylaxis ordered?: Patient is therapeutic on Coumadin ASSESSMENT AND PLAN: This is a 57-year-old white male with right lower extremity ischemia and necrosis of his right below knee amputation stump who underwent a right above-knee amputation today. Patient also had infection and bleeding from the right femoral attachment of the bypass graft which has been removed and the patient underwent a femoral patch angioplasty. PROBLEMS: 1. right lower extremity atherosclerotic arterial occlusive disease: H underwent a right above-knee amputation on 01/21/2017. 2. right femoral bypass graft infection: The bypass graft has been removed the artery has undergone patch angioplasty and is healing well. VS, I&O, 24H, Fishbone Vital Signs/I&O Vital Signs Date Time Temp Pulse Resp B/P (MAP) Pulse Ox O2 Delivery O2 Flow Rate FiO2 01/21/17 21:53 156/76 01/21/17 21:52 80 01/21/17 18:56 18 2 Nasal Cannula 01/21/17 18:50 97.3 2.0 I&O- Last 24 Hours up to 6 AM 01/21/17 06:00 Intake Total 3130 ml Output Total 1075 ml Balance 2055 ml Laboratory Data 24H LABS Laboratory Tests 2 01/21/17 10:46: White Blood Count 8.1, Red Blood Count 3.28L, Hemoglobin 8.8L, Hematocrit 28.3L , Mean Corpuscular Volume 86.5, Mean Corpuscular Hemoglobin 26.7L, Mean Corpuscular Hemoglobin Concent 30.9L, Red Cell Distribution Width 15.8H, Platelet Count 436, Neutrophils (%) (Auto) 74.1H, Lymphocytes (%) (Auto) 14.6L, Monocytes (%) (Auto) 5.8H, Eosinophils (%) (Auto) 3.8H, Basophils (%) (Auto) 0.8 , Neutrophils # (Auto) 6.0, Lymphocytes # (Auto) 1.3L, Monocytes # (Auto) 0.5, Eosinophils # (Auto) 0.3, Basophils # (Auto) 0.1, Large Unclassified Cells % 0.9 , Large Unclassified Cells # 0.1, Prothrombin Time 32.8H, Prothromb Time International Ratio 3.04, Anion Gap 10, Glomerular Filtration Rate > 60.0, Blood Urea Nitrogen 12, Creatinine 0.99, Sodium Level 141, Potassium Level 4.0, Chloride Level 105, Carbon Dioxide Level 26, Calcium Level 8.9 CBC/BMP Laboratory Tests 01/21/17 10:46 Red Blood Count 3.28 L, Mean Corpuscular Volume 86.5, Mean Corpuscular Hemoglobin 26.7 L, Mean Corpuscular Hemoglobin Concent 30.9 L, Red Cell Distribution Width 15.8 H, Neutrophils (%) (Auto) 74.1 H, Lymphocytes (%) (Auto ) 14.6 L, Monocytes (%) (Auto) 5.8 H, Eosinophils (%) (Auto) 3.8 H, Basophils (% ) (Auto) 0.8, Neutrophils # (Auto) 6.0, Lymphocytes # (Auto) 1.3 L, Monocytes # (Auto) 0.5, Eosinophils # (Auto) 0.3, Basophils # (Auto) 0.1, Calcium Level 8.9 Aquilino King MD Jan 21, 2017 22:56
[2017-01-22] VITALS (7 sets, daily range): BP systolic 122–162; BP diastolic 64–99
[2017-01-22] MEDS: LR 1,000 ML IV SCH ×4 (03:20→20:30)
[2017-01-22] MEDS: PIPERACILLIN/TAZOBACTAM SOD 3.375 GM in D5W MINI-BAG PLUS 50 ML IV SCH ×4 (03:21→20:16)
[2017-01-22] MEDS: DOCUSATE SODIUM 100 MG CAP PO SCH ×3 (06:45→21:17)
[2017-01-22] MEDS: amLODIPine 5 MG TAB PO SCH (10:35)
[2017-01-22] MEDS: cloNIDine 0.1 MG TAB PO SCH ×3 (10:36→21:16)
[2017-01-22] MEDS: FINASTERIDE 5 MG TAB PO SCH (10:36)
[2017-01-22] MEDS: CARVedilol 3.125 MG TAB PO SCH ×2 (10:36→21:16)
[2017-01-22] MEDS: GABAPENTIN 400 MG CAP PO SCH ×3 (10:37→21:14)
[2017-01-22] MEDS: DULoxetine 30 MG CAP (CYMBALTA) PO SCH ×2 (11:24→21:15)
[2017-01-22] MEDS: MORPHINE 1MG/ML IN 0.9% NACL 100ML IV BAG IV PRN (13:13)
[2017-01-22] MEDS: SENNA 8.6 MG TAB (SENOKOT) PO SCH (21:16)
[2017-01-22] MEDS: ATORVASTATIN 20 MG TAB PO SCH (21:16)
--- NOTE | 2017-01-22 22:33 | IPNPDOC ---
Date Seen The patient was seen on 01/22/17. Progress Note SUBJECTIVE: Patient is without complaints OBJECTIVE PHYSICAL EXAMINATION: VITAL SIGNS: Please see below. GENERAL: Lying in bed resting comfortably HEENT: Normal CARDIOVASCULAR: Regular rate and rhythm. RESPIRATORY: Clear to auscultation bilaterally. ABDOMINAL: Soft nontender nondistended EXTREMITIES: Right above-knee amputation stump is clean dry and dressed NEUROLOGICAL: Awake alert oriented x3 PSYCHOLOGICAL: Normal LABORATORY DATA: Please see below. MICROBIOLOGY: Please see below. DVT prophylaxis ordered?: Patient therapeutic on Coumadin ASSESSMENT AND PLAN: This is a 57-year-old white male with right above-knee amputation after undergoing a right below-knee amputation with necrosis of the below-knee amputation stump. PROBLEMS: 1. right lower extremity atherosclerotic arterial occlusive disease: Patient is status post right above-knee amputation which is healing well. VS, I&O, 24H, Fishbone Vital Signs/I&O Vital Signs Date Time Temp Pulse Resp B/P (MAP) Pulse Ox O2 Delivery O2 Flow Rate FiO2 01/22/17 22:00 96.8 79 18 159/69 (99) 99 Nasal Cannula 2.0 I&O- Last 24 Hours up to 6 AM 01/22/17 05:59 Intake Total 2327 ml Output Total 2370 ml Balance -43 ml Aquilino King MD Jan 22, 2017 22:33
[2017-01-23] MEDS: PIPERACILLIN/TAZOBACTAM SOD 3.375 GM in D5W MINI-BAG PLUS 50 ML IV SCH ×4 (01:46→20:47)
[2017-01-23 02:00] VITALS: BP 135/66
[2017-01-23] MEDS: DOCUSATE SODIUM 100 MG CAP PO SCH ×3 (05:06→20:49)
[2017-01-23] MEDS: LR 1,000 ML IV SCH ×3 (05:07→20:49)
[2017-01-23 05:57] LABS: MEAN CORPUSCULAR HEMOGLOBIN 27.3 pg (27.0-33.0); MEAN CORPUSCULAR HGB CONC 31.6 g/dl (32.0-36.5); MEAN CORPUSCULAR VOLUME 86.4 fl (80.0-96.0); RED CELL DISTRIBUTION WIDTH 15.4 % (11.5-14.5); WHITE BLOOD COUNT 8.6 K/mm3 (4.0-10.0)
[2017-01-23 06:00] VITALS: BP 153/68
[2017-01-23 06:01] LABS: INR 1.61
[2017-01-23 06:16] LABS: ANION GAP 9 MEQ/L (8-16); BLOOD UREA NITROGEN 15 MG/DL (7-18); CALCIUM LEVEL 8.4 MG/DL (8.5-10.1); CARBON DIOXIDE LEVEL 25 MEQ/L (21-32); CHLORIDE LEVEL 104 MEQ/L (98-107); GLOMERULAR FILTRATION RATE > 60.0 (>56); GLUCOSE, FASTING 85 MG/DL (70-105); POTASSIUM SERUM 4.2 MEQ/L (3.5-5.1); SODIUM LEVEL 138 MEQ/L (136-145)
[2017-01-23] MEDS: cloNIDine 0.1 MG TAB PO SCH ×3 (09:48→20:47)
[2017-01-23] MEDS: CARVedilol 3.125 MG TAB PO SCH ×2 (09:48→20:48)
[2017-01-23] MEDS: GABAPENTIN 400 MG CAP PO SCH ×3 (09:49→20:48)
[2017-01-23] MEDS: FINASTERIDE 5 MG TAB PO SCH (09:49)
[2017-01-23] MEDS: DULoxetine 30 MG CAP (CYMBALTA) PO SCH ×2 (09:49→20:49)
[2017-01-23] MEDS: amLODIPine 5 MG TAB PO SCH (09:49)
[2017-01-23 10:00] VITALS: BP 134/68
[2017-01-23] MEDS: MORPHINE 1MG/ML IN 0.9% NACL 100ML IV BAG IV PRN (13:39)
[2017-01-23 14:00] VITALS: BP 154/76
[2017-01-23] MEDS ORDERED: WARFARIN SOD 4 MG TAB PO ONE (17:00)
[2017-01-23 18:00] VITALS: BP 148/75
[2017-01-23] MEDS: SENNA 8.6 MG TAB (SENOKOT) PO SCH (20:47)
[2017-01-23] MEDS: ATORVASTATIN 20 MG TAB PO SCH (20:48)
[2017-01-23 22:00] VITALS: BP 152/74
[2017-01-24 02:00] VITALS: BP 156/70
[2017-01-24] MEDS: PIPERACILLIN/TAZOBACTAM SOD 3.375 GM in D5W MINI-BAG PLUS 50 ML IV SCH ×4 (02:57→21:34)
[2017-01-24] MEDS: DOCUSATE SODIUM 100 MG CAP PO SCH ×3 (05:29→21:47)
[2017-01-24] MEDS: LR 1,000 ML IV SCH ×3 (05:30→21:34)
[2017-01-24 06:00] VITALS: BP 153/70
[2017-01-24] MEDS: FINASTERIDE 5 MG TAB PO SCH (08:27)
[2017-01-24] MEDS: GABAPENTIN 400 MG CAP PO SCH ×3 (08:27→21:46)
[2017-01-24] MEDS: cloNIDine 0.1 MG TAB PO SCH ×3 (08:27→21:47)
[2017-01-24] MEDS: DULoxetine 30 MG CAP (CYMBALTA) PO SCH ×2 (08:28→21:46)
[2017-01-24] MEDS: CARVedilol 3.125 MG TAB PO SCH ×2 (08:28→21:47)
[2017-01-24] MEDS: amLODIPine 5 MG TAB PO SCH (08:28)
[2017-01-24 10:00] VITALS: BP 157/88
[2017-01-24 14:00] VITALS: BP 124/68
[2017-01-24] MEDS: MORPHINE 1MG/ML IN 0.9% NACL 100ML IV BAG IV PRN (16:40)
[2017-01-24] MEDS ORDERED: WARFARIN SOD 4 MG TAB PO ONE (17:00)
--- NOTE | 2017-01-24 17:30 | REP ---
RIGHT PICC LINE PLACEMENT: The procedure was performed by NANCY Parkinson under the direct supervision of Dr. Xiong. The procedure along with its risks, benefits, and complications were discussed with the patient prior to the procedure. Informed consent was obtained both verbally and written. The patient was identified in the interventional suite and placed in a supine position. The right arm was prepped and draped in the usual sterile fashion. A procedural "time-out" was performed to ensure that the correct patient, site and procedure were being performed. Under ultrasound guidance, the right basilic vein was punctured. A thin guidewire was introduced and the needle was removed. A break-away sheath was placed. Under fluoroscopic observation, and via the break-away sheath, a 42 cm 5.5-Chinese double lumen PICC line was placed with its tip at the junction of the superior vena cava. The catheter was flushed with heparinized saline and affixed to the patient's skin. The patient tolerated the procedure well and was discharged back to his floor. FLUOROSCOPY TIME WAS 0.6 MINUTES. Reviewed by NANCY Ott 01/25/2017 11:17 AEdited and Signed by Alton Xiong MD 01/25/2017 12:29 P
[2017-01-24 18:00] VITALS: BP 145/70
[2017-01-24] MEDS: SODIUM CHLORIDE 0.9% INJ 10 ML SYR IV SCH (18:00)
[2017-01-24] MEDS: SENNA 8.6 MG TAB (SENOKOT) PO SCH (21:46)
[2017-01-24] MEDS: ATORVASTATIN 20 MG TAB PO SCH (21:47)
[2017-01-24 22:00] VITALS: BP 124/59
--- NOTE | 2017-01-24 22:45 | IPNPDOC ---
Date Seen The patient was seen on 01/23/17. Progress Note SUBJECTIVE: Patient is without complaints OBJECTIVE PHYSICAL EXAMINATION: VITAL SIGNS: Please see below. GENERAL: Lying in bed comfortably, sleeping HEENT: Normal CARDIOVASCULAR: Regular rate and rhythm. RESPIRATORY: Clear to auscultation bilaterally. ABDOMINAL: Soft nontender nondistended EXTREMITIES: Right AKA stump is clean dry and incision is intact. NEUROLOGICAL: Awake alert oriented x3 PSYCHOLOGICAL: Normal LABORATORY DATA: Please see below. MICROBIOLOGY: Please see below. DVT prophylaxis ordered?: Patient therapeutic on Coumadin ASSESSMENT AND PLAN: This is a 57-year-old male status post right above-knee amputation.. PROBLEMS: 1. right lower extremity arterial F thorascopic or occlusive disease: Patient is status post right above-knee amputation and is doing well. Patient will be evaluated by physical therapy with possible rehabilitation evaluation. VS, I&O, 24H, Fishbone Vital Signs/I&O Vital Signs Date Time Temp Pulse Resp B/P (MAP) Pulse Ox O2 Delivery O2 Flow Rate FiO2 01/24/17 21:47 124/59 01/24/17 21:47 72 01/24/17 18:00 96.8 18 Nasal Cannula 2.0 01/24/17 14:00 100 I&O- Last 24 Hours up to 6 AM 01/24/17 05:59 Intake Total 1050 ml Output Total 2000 ml Balance -950 ml Aquilino King MD Jan 24, 2017 22:44
--- NOTE | 2017-01-24 22:47 | IPNPDOC ---
Date Seen The patient was seen on 01/24/17. Progress Note SUBJECTIVE: Patient is without complaints. OBJECTIVE PHYSICAL EXAMINATION: VITAL SIGNS: Please see below. GENERAL: Asleep in bed, easily arousable HEENT: Normal CARDIOVASCULAR: Regular rate and rhythm. RESPIRATORY: Clear to auscultation bilaterally. ABDOMINAL: Soft nontender nondistended EXTREMITIES: Right above-knee amputation stump is healing well with darrion in place incision is clean dry and intact. NEUROLOGICAL: Awake alert oriented x3 PSYCHOLOGICAL: Normal LABORATORY DATA: Please see below. MICROBIOLOGY: Please see below. DVT prophylaxis ordered?: Patient therapeutic on Coumadin. ASSESSMENT AND PLAN: This is a 57-year-old male status post right above-knee amputation secondary to severe arterial atherosclerotic occlusive disease in the right lower extremity. PROBLEMS: 1. right lower extremity atherosclerotic arterial occlusive disease: Patient is status post right above-knee amputation which is healing well.. DISPOSITION: Patient is being evaluated for possible rehabilitation placement. VS, I&O, 24H, Fishbone Vital Signs/I&O Vital Signs Date Time Temp Pulse Resp B/P (MAP) Pulse Ox O2 Delivery O2 Flow Rate FiO2 01/24/17 21:47 124/59 01/24/17 21:47 72 01/24/17 18:00 96.8 18 Nasal Cannula 2.0 01/24/17 14:00 100 I&O- Last 24 Hours up to 6 AM 01/24/17 05:59 Intake Total 1050 ml Output Total 2000 ml Balance -950 ml Aquilino King MD Jan 24, 2017 22:47
[2017-01-25 02:00] VITALS: BP 121/61
[2017-01-25] MEDS: PIPERACILLIN/TAZOBACTAM SOD 3.375 GM in D5W MINI-BAG PLUS 50 ML IV SCH ×4 (02:15→21:44)
[2017-01-25] MEDS: LR 1,000 ML IV SCH ×3 (04:15→18:53)
[2017-01-25] MEDS: DOCUSATE SODIUM 100 MG CAP PO SCH ×3 (05:43→21:44)
[2017-01-25] MEDS: SODIUM CHLORIDE 0.9% INJ 10 ML SYR IV SCH ×2 (05:44→17:44)
[2017-01-25 06:00] VITALS: BP 135/71
[2017-01-25 06:27] LABS: MEAN CORPUSCULAR HGB CONC 30.6 g/dl (32.0-36.5); MEAN CORPUSCULAR VOLUME 88.4 fl (80.0-96.0); WHITE BLOOD COUNT 6.9 K/mm3 (4.0-10.0)
[2017-01-25 06:34] LABS: ANION GAP 7 MEQ/L (8-16); BLOOD UREA NITROGEN 13 MG/DL (7-18); CALCIUM LEVEL 8.5 MG/DL (8.5-10.1); CARBON DIOXIDE LEVEL 29 MEQ/L (21-32); CHLORIDE LEVEL 102 MEQ/L (98-107); CREATININE FOR GFR 0.94 MG/DL (0.70-1.30); GLOMERULAR FILTRATION RATE > 60.0 (>56); GLUCOSE, FASTING 145 MG/DL (70-105); INR 1.36; POTASSIUM SERUM 3.8 MEQ/L (3.5-5.1); SODIUM LEVEL 138 MEQ/L (136-145)
[2017-01-25] MEDS: DULoxetine 30 MG CAP (CYMBALTA) PO SCH ×2 (09:23→21:43)
[2017-01-25] MEDS: amLODIPine 5 MG TAB PO SCH (09:26)
[2017-01-25] MEDS: GABAPENTIN 400 MG CAP PO SCH ×3 (09:26→21:43)
[2017-01-25] MEDS: FINASTERIDE 5 MG TAB PO SCH (09:27)
[2017-01-25] MEDS: cloNIDine 0.1 MG TAB PO SCH ×3 (09:27→21:44)
[2017-01-25] MEDS: CARVedilol 3.125 MG TAB PO SCH ×2 (09:27→21:44)
[2017-01-25 10:00] VITALS: BP 131/59
[2017-01-25 14:00] VITALS: BP 133/75
[2017-01-25] MEDS: MORPHINE 1MG/ML IN 0.9% NACL 100ML IV BAG IV PRN (17:03)
[2017-01-25 18:00] VITALS: BP 116/77
[2017-01-25 20:55] VITALS: BP 115/58
[2017-01-25] MEDS: SODIUM CHLORIDE 0.9% INJ 10 ML SYR IV PRN (21:42)
[2017-01-25] MEDS: SENNA 8.6 MG TAB (SENOKOT) PO SCH (21:43)
[2017-01-25] MEDS: ATORVASTATIN 20 MG TAB PO SCH (21:44)
[2017-01-26 02:10] VITALS: BP 134/67
[2017-01-26] MEDS: PIPERACILLIN/TAZOBACTAM SOD 3.375 GM in D5W MINI-BAG PLUS 50 ML IV SCH ×4 (02:44→20:55)
[2017-01-26] MEDS: LR 1,000 ML IV SCH ×3 (02:45→20:57)
[2017-01-26] MEDS: SODIUM CHLORIDE 0.9% INJ 10 ML SYR IV PRN ×2 (02:45→22:25)
[2017-01-26 06:00] VITALS: BP 136/72
[2017-01-26] MEDS: DOCUSATE SODIUM 100 MG CAP PO SCH ×3 (06:33→21:00)
[2017-01-26] MEDS: SODIUM CHLORIDE 0.9% INJ 10 ML SYR IV SCH ×2 (06:33→14:53)
[2017-01-26 07:04] LABS: MEAN CORPUSCULAR HEMOGLOBIN 26.8 pg (27.0-33.0); MEAN CORPUSCULAR VOLUME 86.3 fl (80.0-96.0); RED CELL DISTRIBUTION WIDTH 15.3 % (11.5-14.5); WHITE BLOOD COUNT 6.8 K/mm3 (4.0-10.0)
[2017-01-26 07:09] LABS: ANION GAP 8 MEQ/L (8-16); BLOOD UREA NITROGEN 12 MG/DL (7-18); CALCIUM LEVEL 7.9 MG/DL (8.5-10.1); CARBON DIOXIDE LEVEL 28 MEQ/L (21-32); CHLORIDE LEVEL 104 MEQ/L (98-107); CREATININE FOR GFR 0.79 MG/DL (0.70-1.30); GLOMERULAR FILTRATION RATE > 60.0 (>56); GLUCOSE, FASTING 77 MG/DL (70-105); POTASSIUM SERUM 4.1 MEQ/L (3.5-5.1); SODIUM LEVEL 140 MEQ/L (136-145)
[2017-01-26 07:21] LABS: INR 1.25
[2017-01-26] MEDS: DULoxetine 30 MG CAP (CYMBALTA) PO SCH ×2 (08:18→20:55)
[2017-01-26] MEDS: FINASTERIDE 5 MG TAB PO SCH (08:19)
[2017-01-26] MEDS: cloNIDine 0.1 MG TAB PO SCH ×3 (08:19→20:56)
[2017-01-26] MEDS: amLODIPine 5 MG TAB PO SCH (08:20)
[2017-01-26] MEDS: CARVedilol 3.125 MG TAB PO SCH ×2 (08:21→20:56)
[2017-01-26] MEDS: GABAPENTIN 400 MG CAP PO SCH ×3 (08:22→20:55)
[2017-01-26 10:00] VITALS: BP 123/57
[2017-01-26 14:00] VITALS: BP 136/74
[2017-01-26 18:00] VITALS: BP 130/59
[2017-01-26] MEDS: MORPHINE 1MG/ML IN 0.9% NACL 100ML IV BAG IV PRN (18:03)
--- NOTE | 2017-01-26 19:56 | IPNPDOC ---
Date Seen The patient was seen on 01/25/17. Progress Note SUBJECTIVE: Patient is without pain in his right below knee amputation stump OBJECTIVE PHYSICAL EXAMINATION: VITAL SIGNS: Please see below. GENERAL: Lying in bed comfortably HEENT: Normal CARDIOVASCULAR: Regular rate and rhythm. RESPIRATORY: Clear to auscultation bilaterally. ABDOMINAL: Soft, nontender and nondistended EXTREMITIES: Left lower extremity is perfused well. Right above-knee amputation stump is well perfused with a good healing of the incision. NEUROLOGICAL: Awake alert oriented x3 PSYCHOLOGICAL: Normal LABORATORY DATA: Please see below. MICROBIOLOGY: Please see below. DVT prophylaxis ordered?: Patient on Coumadin ASSESSMENT AND PLAN: This is a 57-year-old white male with right above-knee amputation which is healing well. PROBLEMS: 1. right lower extremity arterial atherosclerotic occlusive disease: Right above -knee amputation stump is healing well. DISPOSITION: Patient is being evaluated by physical therapy for a decision as to whether the patient can be discharged home or will require rehabilitation. VS, I&O, 24H, Fishbone Vital Signs/I&O Vital Signs Date Time Temp Pulse Resp B/P (MAP) Pulse Ox O2 Delivery O2 Flow Rate FiO2 01/26/17 18:00 97.3 76 16 130/59 (82) 97 Room Air 01/26/17 10:50 2.0 I&O- Last 24 Hours up to 6 AM 01/26/17 05:59 Intake Total 2405 ml Output Total 3330 ml Balance -925 ml Laboratory Data 24H LABS Laboratory Tests 2 01/26/17 06:42: Prothrombin Time 15.9H, Prothromb Time International Ratio 1.25, Anion Gap 8, Glomerular Filtration Rate > 60.0, Blood Urea Nitrogen 12, Creatinine 0.79, Sodium Level 140, Potassium Level 4.1, Chloride Level 104, Carbon Dioxide Level 28, Calcium Level 7.9L CBC/BMP Laboratory Tests 01/26/17 06:42 Red Blood Count 2.77 L, Mean Corpuscular Volume 86.3, Mean Corpuscular Hemoglobin 26.8 L, Mean Corpuscular Hemoglobin Concent 31.0 L, Red Cell Distribution Width 15.3 H, Calcium Level 7.9 L Aquilino King MD Jan 26, 2017 19:56
--- NOTE | 2017-01-26 20:06 | IPNPDOC ---
Subjective Date Seen The patient was seen on 01/26/17. Subjective Chief Complaint/HPI The patient is a 57-year-old male admitted with a reason for visit of Rt Femoral Artery Bleed. Patient denies any pain. Events since last encounter None General: Denies: ROS Unobtainable, Chills, Night Sweats, Fatigue, Malaise, Normal Appetite, Other Symptoms Constitutional: Denies: Chills, Fever, Malaise, Night Sweats, Weakness, Fatigue , Weight Loss, Lethargy, Other Eyes: Denies: Pain, Vision change, Conjunctivae inflammation, Eyelid inflammation, Redness, Other ENT: Denies: Head Aches, Ear Pain, Dysphagia, Sinus Congestion, Post Nasal Drip , Sore Throat, Epistaxis, Other Symptoms Skin: Denies: Rash, Lesions, Jaundice, Bruising, Itching, Dry, Breakdown, Nail Changes, Other Pulmonary: Denies: Dyspnea, Cough, Pleuritic Chest Pain, Other Symptoms Cardiovascular: Denies: Chest Pain, Palpitations, Orthopnea, Paroxysmal Noc. Dyspnea, Edema, Lt Headedness, Other Symptoms Gastrointestinal: Denies: Nausea, Vomiting, Abdominal Pain, Diarrhea, Constipation, Melena, Hematochezia, Other Symptoms Genitourinary: Denies: Dysuria, Frequency, Incontinence, Hematuria, Retention, Other Symptoms Hematologic: Denies: Bruising, Bleeding Excessively, Petecchia, Purpura, Enlarged Lymph Nodes, Other Hematologic Endocrine: Denies: Polydipsia, Polyphagia, Polyuria, Heat Intolerance, Cold Intolerance, Other Endocrine Sx Musculoskeletal: Denies: Neck Pain, Back Pain, Shoulder Pain, Arm Pain, Hand Pain, Leg Pain, Foot Pain, Joint Pain, Muscle Pain, Spasms, Other Symptoms Neurological: Denies: Weakness, Numbness, Incoordination, Change in speech, Confusion, Seizures, Other Symptoms Psych: Denies: Mood Normal, Anxiety, Depression, Memory Issues, Thoughts of Self Harm, Anger, Thoughts of Harming Other, Other Psych Objective Physical Examination General Exam: Positive: Alert, No Acute Distress Eye Exam: Positive: PERRLA ENT Exam: Positive: Mucous membr. moist/pink, Pharynx Normal Neck Exam: Positive: Supple, +2 carotid pulse wo bruit Chest Exam: Positive: Clear to auscultation Heart Exam: Positive: Rate Normal, Regular Rhythm Telemetry: Positive: No significant arrhythmia Abdomen Exam: Positive: Normal bowel sounds, Soft Male Exam: Positive: Normal Genital Exam Extremity Exam: Negative: Clubbing, Cyanosis, Edema, Normal pulses, Tenderness , Swelling, Other Skin Exam: Positive: Nl turgor and temperature Neuro Exam: Positive: Normal Speech Psych Exam: Positive: Mental status NL Other physical findings Right above knee amputation stump well perfused and incision healing well Assessment /Plan Plan/VTE VTE Prophylaxis Ordered?: Yes Plan Diet: Continue Current Activity: Encourage Ambulation Therapy: PT, OT Pt and Family Services: Home Care Diagnostics: Check Labs Anticipated Discharge: Home With Services Patient is stable and progressing towards discharge to either home or rehabilitation pending evaluation by physical therapy. Patient's hematocrit is decreased but stable and we will continue to follow this. VS, I&O, 24H, Fishbone Vital Signs/I&O Vital Signs Date Time Temp Pulse Resp B/P (MAP) Pulse Ox O2 Delivery O2 Flow Rate FiO2 01/26/17 18:00 97.3 76 16 130/59 (82) 97 Room Air 01/26/17 10:50 2.0 I&O- Last 24 Hours up to 6 AM 01/26/17 05:59 Intake Total 2405 ml Output Total 3330 ml Balance -925 ml Laboratory Data 24H LABS Laboratory Tests 2 01/26/17 06:42: Prothrombin Time 15.9H, Prothromb Time International Ratio 1.25, Anion Gap 8, Glomerular Filtration Rate > 60.0, Blood Urea Nitrogen 12, Creatinine 0.79, Sodium Level 140, Potassium Level 4.1, Chloride Level 104, Carbon Dioxide Level 28, Calcium Level 7.9L CBC/BMP Laboratory Tests 01/26/17 06:42 Red Blood Count 2.77 L, Mean Corpuscular Volume 86.3, Mean Corpuscular Hemoglobin 26.8 L, Mean Corpuscular Hemoglobin Concent 31.0 L, Red Cell Distribution Width 15.3 H, Calcium Level 7.9 L Aquilino King MD Jan 26, 2017 20:06
[2017-01-26] MEDS: SENNA 8.6 MG TAB (SENOKOT) PO SCH (20:55)
[2017-01-26] MEDS: ATORVASTATIN 20 MG TAB PO SCH (20:56)
[2017-01-26 21:20] VITALS: BP 122/70
[2017-01-27 01:55] VITALS: BP 139/67
[2017-01-27] MEDS: PIPERACILLIN/TAZOBACTAM SOD 3.375 GM in D5W MINI-BAG PLUS 50 ML IV SCH ×4 (02:04→21:47)
[2017-01-27] MEDS: SODIUM CHLORIDE 0.9% INJ 10 ML SYR IV PRN (03:18)
[2017-01-27] MEDS: DOCUSATE SODIUM 100 MG CAP PO SCH ×3 (05:07→21:48)
[2017-01-27] MEDS: SODIUM CHLORIDE 0.9% INJ 10 ML SYR IV SCH ×2 (05:07→18:33)
[2017-01-27 05:36] LABS: ANION GAP 8 MEQ/L (8-16); BLOOD UREA NITROGEN 13 MG/DL (7-18); CALCIUM LEVEL 8.6 MG/DL (8.5-10.1); CARBON DIOXIDE LEVEL 27 MEQ/L (21-32); CHLORIDE LEVEL 104 MEQ/L (98-107); CREATININE FOR GFR 0.88 MG/DL (0.70-1.30); GLOMERULAR FILTRATION RATE > 60.0 (>56); GLUCOSE, FASTING 78 MG/DL (70-105); POTASSIUM SERUM 4.2 MEQ/L (3.5-5.1); SODIUM LEVEL 139 MEQ/L (136-145)
[2017-01-27 05:43] LABS: MEAN CORPUSCULAR HEMOGLOBIN 27.3 pg (27.0-33.0); MEAN CORPUSCULAR HGB CONC 31.7 g/dl (32.0-36.5); MEAN CORPUSCULAR VOLUME 86.1 fl (80.0-96.0); RED CELL DISTRIBUTION WIDTH 15.2 % (11.5-14.5); WHITE BLOOD COUNT 6.5 K/mm3 (4.0-10.0)
[2017-01-27 05:53] LABS: INR 1.06
[2017-01-27 06:00] VITALS: BP 154/87
[2017-01-27] MEDS: LR 1,000 ML IV SCH (06:34)
[2017-01-27] MEDS: cloNIDine 0.1 MG TAB PO SCH ×3 (09:25→21:52)
[2017-01-27] MEDS: CARVedilol 3.125 MG TAB PO SCH ×2 (09:26→21:52)
[2017-01-27] MEDS: GABAPENTIN 400 MG CAP PO SCH ×3 (09:26→21:49)
[2017-01-27] MEDS: FINASTERIDE 5 MG TAB PO SCH (09:26)
[2017-01-27] MEDS: DULoxetine 30 MG CAP (CYMBALTA) PO SCH ×2 (09:26→21:48)
[2017-01-27] MEDS: amLODIPine 5 MG TAB PO SCH (09:27)
[2017-01-27 10:00] VITALS: BP 156/75
[2017-01-27 14:00] VITALS: BP 131/60
[2017-01-27] MEDS: NORCO, ANEXSIA 5/325MG TABLET (HYDROcodone/ACETAMINOPHEN) PO PRN ×2 (16:48→21:48)
[2017-01-27 18:00] VITALS: BP 130/60
[2017-01-27] MEDS: SENNA 8.6 MG TAB (SENOKOT) PO SCH (21:48)
[2017-01-27] MEDS: ATORVASTATIN 20 MG TAB PO SCH (21:49)
[2017-01-27 22:00] VITALS: BP 130/63
--- NOTE | 2017-01-27 23:05 | IPNPDOC ---
Date Seen The patient was seen on 01/27/17. Progress Note SUBJECTIVE: Patient is without complaints. Patient denies any pain in his right above-knee amputation stump. OBJECTIVE PHYSICAL EXAMINATION: VITAL SIGNS: Please see below. GENERAL: Lying in bed comfortably HEENT: Normal CARDIOVASCULAR: Regular rate and rhythm. RESPIRATORY: Clear to auscultation bilaterally. ABDOMINAL: Soft nontender nondistended EXTREMITIES: Right above-knee amputation stump is well perfused and the incision is healing well. NEUROLOGICAL: Awake alert oriented x3 with no focal deficits PSYCHOLOGICAL: Normal LABORATORY DATA: Please see below. MICROBIOLOGY: Please see below. DVT prophylaxis ordered?: She is on Coumadin ASSESSMENT AND PLAN: This is a 57-year-old male status post right above-knee amputation due to breakdown of his right below-knee amputation and severe atherosclerotic occlusive disease in his iliac, femoral and popliteal arteries as well as tibial peroneal disease. Patient is recovering well postoperatively. Patient's hematocrit is decreased but stable. PROBLEMS: 1. right above-knee amputation: Stump is stable. Patient requires physical therapy with possible discharge to home versus acute rehabilitation. 2. decreased hematocrit: Patient is hemodynamically stable with normal blood pressure and pulse. No indication to transfuse at this time. Patient is able to continue with physical therapy. DISPOSITION: The patient continues to recuperate and once he is stable with regards to his hematocrit and has been evaluated by physical therapy the decision will be made as to whether he is discharged to home or acute rehabilitation.. VS, I&O, 24H, [place] Vital Signs/I&O Vital Signs Date Time Temp Pulse Resp B/P (MAP) Pulse Ox O2 Delivery O2 Flow Rate FiO2 01/27/17 22:18 17 01/27/17 21:52 142/67 01/27/17 21:52 68 01/27/17 18:00 97.1 98 Room Air 2.0 I&O- Last 24 Hours up to 6 AM 01/27/17 06:00 Intake Total 3160 ml Output Total 2385 ml Balance 775 ml Laboratory Data 24H LABS Laboratory Tests 2 01/27/17 05:06: Prothrombin Time 13.9, Prothromb Time International Ratio 1.06, Anion Gap 8, Glomerular Filtration Rate > 60.0, Blood Urea Nitrogen 13, Creatinine 0.88, Sodium Level 139, Potassium Level 4.2, Chloride Level 104, Carbon Dioxide Level 27, Calcium Level 8.6 CBC/BMP Laboratory Tests 01/27/17 05:06 Red Blood Count 2.74 L, Mean Corpuscular Volume 86.1, Mean Corpuscular Hemoglobin 27.3, Mean Corpuscular Hemoglobin Concent 31.7 L, Red Cell Distribution Width 15.2 H, Calcium Level 8.6 Aquilino King MD Jan 27, 2017 23:05
[2017-01-28] MEDS: PIPERACILLIN/TAZOBACTAM SOD 3.375 GM in D5W MINI-BAG PLUS 50 ML IV SCH ×4 (01:35→20:13)
[2017-01-28] MEDS: NORCO, ANEXSIA 5/325MG TABLET (HYDROcodone/ACETAMINOPHEN) PO PRN ×5 (01:52→20:16)
[2017-01-28] MEDS: SODIUM CHLORIDE 0.9% INJ 10 ML SYR IV SCH ×2 (05:18→18:17)
[2017-01-28] MEDS: DOCUSATE SODIUM 100 MG CAP PO SCH ×3 (05:18→20:17)
[2017-01-28 05:37] LABS: MEAN CORPUSCULAR HEMOGLOBIN 25.9 pg (27.0-33.0); MEAN CORPUSCULAR HGB CONC 30.4 g/dl (32.0-36.5); MEAN CORPUSCULAR VOLUME 85.3 fl (80.0-96.0); RED CELL DISTRIBUTION WIDTH 15.3 % (11.5-14.5); WHITE BLOOD COUNT 8.4 K/mm3 (4.0-10.0)
[2017-01-28 05:38] LABS: INR 1.01
[2017-01-28 05:48] LABS: ANION GAP 9 MEQ/L (8-16); BLOOD UREA NITROGEN 13 MG/DL (7-18); CALCIUM LEVEL 8.6 MG/DL (8.5-10.1); CARBON DIOXIDE LEVEL 27 MEQ/L (21-32); CHLORIDE LEVEL 104 MEQ/L (98-107); CREATININE FOR GFR 0.88 MG/DL (0.70-1.30); GLOMERULAR FILTRATION RATE > 60.0 (>56); GLUCOSE, FASTING 87 MG/DL (70-105); POTASSIUM SERUM 4.3 MEQ/L (3.5-5.1); SODIUM LEVEL 140 MEQ/L (136-145)
[2017-01-28 06:00] VITALS: BP 123/79
[2017-01-28] MEDS: DULoxetine 30 MG CAP (CYMBALTA) PO SCH ×2 (08:05→20:17)
[2017-01-28] MEDS: GABAPENTIN 400 MG CAP PO SCH ×3 (08:05→20:15)
[2017-01-28] MEDS: CARVedilol 3.125 MG TAB PO SCH ×2 (08:05→20:17)
[2017-01-28] MEDS: amLODIPine 5 MG TAB PO SCH (08:05)
[2017-01-28] MEDS: cloNIDine 0.1 MG TAB PO SCH ×3 (08:06→20:14)
[2017-01-28] MEDS: FINASTERIDE 5 MG TAB PO SCH (08:06)
[2017-01-28 10:00] VITALS: BP 172/82
[2017-01-28 14:00] VITALS: BP 150/76
[2017-01-28] MEDS: WARFARIN SOD 7.5 MG TAB PO SCH (16:19)
[2017-01-28 18:00] VITALS: BP 134/78
[2017-01-28] MEDS: SENNA 8.6 MG TAB (SENOKOT) PO SCH (20:14)
[2017-01-28] MEDS: ATORVASTATIN 20 MG TAB PO SCH (20:16)
[2017-01-28] MEDS: traZODone 50 MG TAB PO PRN (20:17)
[2017-01-28 22:00] VITALS: BP 152/86
[2017-01-28] MEDS ORDERED: MORPHINE 10 MG/ML 1ML VIAL IV ONE (22:30)
[2017-01-29] VITALS (8 sets, daily range): BP systolic 131–165; BP diastolic 72–86
[2017-01-29] MEDS: NORCO, ANEXSIA 5/325MG TABLET (HYDROcodone/ACETAMINOPHEN) PO PRN ×3 (00:49→10:06)
[2017-01-29] MEDS: PIPERACILLIN/TAZOBACTAM SOD 3.375 GM in D5W MINI-BAG PLUS 50 ML IV SCH ×4 (01:24→21:39)
[2017-01-29] MEDS: SODIUM CHLORIDE 0.9% INJ 10 ML SYR IV PRN (01:24)
[2017-01-29] MEDS ORDERED: ALPRAZolam 0.5 MG TAB PO ONE (01:45)
[2017-01-29] MEDS: DOCUSATE SODIUM 100 MG CAP PO SCH ×3 (06:03→21:38)
[2017-01-29] MEDS: SODIUM CHLORIDE 0.9% INJ 10 ML SYR IV SCH ×2 (06:04→18:27)
[2017-01-29 06:44] LABS: MEAN CORPUSCULAR HGB CONC 31.3 g/dl (32.0-36.5); MEAN CORPUSCULAR VOLUME 86.2 fl (80.0-96.0); RED CELL DISTRIBUTION WIDTH 15.3 % (11.5-14.5)
[2017-01-29 06:49] LABS: INR 1.07
[2017-01-29 07:07] LABS: ANION GAP 7 MEQ/L (8-16); BLOOD UREA NITROGEN 13 MG/DL (7-18); CALCIUM LEVEL 8.7 MG/DL (8.5-10.1); CARBON DIOXIDE LEVEL 26 MEQ/L (21-32); CHLORIDE LEVEL 106 MEQ/L (98-107); CREATININE FOR GFR 0.89 MG/DL (0.70-1.30); GLOMERULAR FILTRATION RATE > 60.0 (>56); GLUCOSE, FASTING 93 MG/DL (70-105); POTASSIUM SERUM 3.7 MEQ/L (3.5-5.1); SODIUM LEVEL 139 MEQ/L (136-145)
[2017-01-29] MEDS: DULoxetine 30 MG CAP (CYMBALTA) PO SCH ×2 (08:05→21:39)
[2017-01-29] MEDS: GABAPENTIN 400 MG CAP PO SCH ×3 (08:06→21:38)
[2017-01-29] MEDS: FINASTERIDE 5 MG TAB PO SCH (08:06)
[2017-01-29] MEDS: amLODIPine 5 MG TAB PO SCH (08:06)
[2017-01-29] MEDS: cloNIDine 0.1 MG TAB PO SCH ×3 (08:07→21:39)
[2017-01-29] MEDS: CARVedilol 3.125 MG TAB PO SCH ×2 (08:07→21:38)
[2017-01-29] MEDS: ANEXSIA, NORCO 7.5MG/325MG TABLET(HYDROCODONE/APAP) PO PRN ×2 (14:22→18:48)
[2017-01-29] MEDS: WARFARIN SOD 7.5 MG TAB PO SCH (16:26)
--- NOTE | 2017-01-29 19:43 | IPNPDOC ---
Date Seen The patient was seen on 01/28/17. Progress Note SUBJECTIVE: Patient is without complaints. OBJECTIVE PHYSICAL EXAMINATION: VITAL SIGNS: Please see below. GENERAL: Lying in bed sleeping better easily arousable and comfortable HEENT: Normal CARDIOVASCULAR: Regular rate and rhythm. RESPIRATORY: Clear to auscultation bilaterally. ABDOMINAL: Soft nontender nondistended EXTREMITIES: Right above-knee amputation stump is well perfused, warm and the incision is healing well. NEUROLOGICAL: Awake alert oriented x3 with no focal deficits PSYCHOLOGICAL: Normal LABORATORY DATA: Please see below. MICROBIOLOGY: Please see below. DVT prophylaxis ordered?: Patient is on Coumadin. ASSESSMENT AND PLAN: This is a 57-year-old male with right followup above-knee amputation which is healing well. PROBLEMS: 1. right lower extremity arterial atherosclerotic occlusive disease: Status post right [id number] amputation which is healing well. The patient is progressing towards discharge to home. VS, I&O, 24H, Fishbone Vital Signs/I&O Vital Signs Date Time Temp Pulse Resp B/P (MAP) Pulse Ox O2 Delivery O2 Flow Rate FiO2 01/29/17 18:48 18 01/29/17 18:00 97.1 73 142/78 (99) 98 Room Air 01/28/17 01:20 2.0 I&O- Last 24 Hours up to 6 AM 01/29/17 06:00 Intake Total 1680 ml Output Total 1650 ml Balance 30 ml Laboratory Data 24H LABS Laboratory Tests 2 01/29/17 06:27: Prothrombin Time 14.1, Prothromb Time International Ratio 1.07, Anion Gap 7L, Glomerular Filtration Rate > 60.0, Blood Urea Nitrogen 13, Creatinine 0.89, Sodium Level 139, Potassium Level 3.7, Chloride Level 106, Carbon Dioxide Level 26, Calcium Level 8.7 CBC/BMP Laboratory Tests 01/29/17 06:27 Red Blood Count 3.09 L, Mean Corpuscular Volume 86.2, Mean Corpuscular Hemoglobin 27.0, Mean Corpuscular Hemoglobin Concent 31.3 L, Red Cell Distribution Width 15.3 H, Calcium Level 8.7 Aquilino King MD Jan 29, 2017 19:43
--- NOTE | 2017-01-29 19:48 | IPNPDOC ---
Date Seen The patient was seen on 01/29/17. Progress Note SUBJECTIVE: Patient is complaining of phantom pain from his right above-knee amputation which she's states last night was 20 out of 20 pain. Patient was given morphine IV and Xanax which helped the patient to sleep and resolve the pain. OBJECTIVE PHYSICAL EXAMINATION: VITAL SIGNS: Please see below. GENERAL: Lying in bed comfortably HEENT: Normal CARDIOVASCULAR: Regular rate and rhythm. RESPIRATORY: Clear to auscultation bilaterally. ABDOMINAL: Soft nontender nondistended EXTREMITIES: Right above-knee amputation stump is well perfused warm and the incision is clean. Right femoral incision is healing well with no drainage of serosanguineous fluid. NEUROLOGICAL: Awake alert oriented x3 PSYCHOLOGICAL: Normal LABORATORY DATA: Please see below. MICROBIOLOGY: Please see below. DVT prophylaxis ordered?: The patient is on Coumadin ASSESSMENT AND PLAN: This is a 57-year-old male status post right above knee amputation who is now having extreme right lower extremity phantom limb pain and mild pain in the above-knee amputation stump. PROBLEMS: 1. right lower extremity limb pain: Patient will undergo placement of a lidocaine patch to his right above-knee amputation stump. Patient will also be given Xanax 0.25 mg by mouth daily at bedtime when necessary. The patient's [place] has been increased to 7.5/325 and this appears to be helping control the pain better. DISPOSITION: Possible discharge on 01/30/2017 if pain is well controlled. VS, I&O, 24H, [facility] Vital Signs/I&O Vital Signs Date Time Temp Pulse Resp B/P (MAP) Pulse Ox O2 Delivery O2 Flow Rate FiO2 01/29/17 18:48 18 01/29/17 18:00 97.1 73 142/78 (99) 98 Room Air 01/28/17 01:20 2.0 I&O- Last 24 Hours up to 6 AM 01/29/17 06:00 Intake Total 1680 ml Output Total 1650 ml Balance 30 ml Laboratory Data 24H LABS Laboratory Tests 2 01/29/17 06:27: Prothrombin Time 14.1, Prothromb Time International Ratio 1.07, Anion Gap 7L, Glomerular Filtration Rate > 60.0, Blood Urea Nitrogen 13, Creatinine 0.89, Sodium Level 139, Potassium Level 3.7, Chloride Level 106, Carbon Dioxide Level 26, Calcium Level 8.7 CBC/BMP Laboratory Tests 01/29/17 06:27 Red Blood Count 3.09 L, Mean Corpuscular Volume 86.2, Mean Corpuscular Hemoglobin 27.0, Mean Corpuscular Hemoglobin Concent 31.3 L, Red Cell Distribution Width 15.3 H, Calcium Level 8.7 Aquilino King MD Jan 29, 2017 19:48
[2017-01-29] MEDS ORDERED: ALPRAZolam 0.25 MG TAB PO SCH (21:00)
[2017-01-29] MEDS ORDERED: LIDOCAINE 5% (LIDODERM) PATCH TD SCH (21:00)
[2017-01-29] MEDS: **NOTE PATIENT COMMENT** MISC XX SCH (21:00)
[2017-01-29] MEDS: SENNA 8.6 MG TAB (SENOKOT) PO SCH (21:38)
[2017-01-29] MEDS: ATORVASTATIN 20 MG TAB PO SCH (21:39)
[2017-01-30] MEDS: SODIUM CHLORIDE 0.9% INJ 10 ML SYR IV PRN (01:23)
[2017-01-30] MEDS: ANEXSIA, NORCO 7.5MG/325MG TABLET(HYDROCODONE/APAP) PO PRN ×3 (01:23→13:56)
[2017-01-30] MEDS: PIPERACILLIN/TAZOBACTAM SOD 3.375 GM in D5W MINI-BAG PLUS 50 ML IV SCH ×2 (01:23→08:34)
[2017-01-30 02:00] VITALS: BP 129/80
[2017-01-30] MEDS: DOCUSATE SODIUM 100 MG CAP PO SCH (05:10)
[2017-01-30] MEDS: SODIUM CHLORIDE 0.9% INJ 10 ML SYR IV SCH (05:11)
[2017-01-30 05:40] LABS: MEAN CORPUSCULAR HEMOGLOBIN 26.5 pg (27.0-33.0); MEAN CORPUSCULAR HGB CONC 30.9 g/dl (32.0-36.5); MEAN CORPUSCULAR VOLUME 85.7 fl (80.0-96.0); RED CELL DISTRIBUTION WIDTH 15.4 % (11.5-14.5); WHITE BLOOD COUNT 9.4 K/mm3 (4.0-10.0)
[2017-01-30 05:43] LABS: INR 1.15
[2017-01-30 06:00] VITALS: BP 131/82
[2017-01-30 06:01] LABS: ANION GAP 9 MEQ/L (8-16); BLOOD UREA NITROGEN 18 MG/DL (7-18); CALCIUM LEVEL 8.6 MG/DL (8.5-10.1); CARBON DIOXIDE LEVEL 24 MEQ/L (21-32); CHLORIDE LEVEL 109 MEQ/L (98-107); CREATININE FOR GFR 0.92 MG/DL (0.70-1.30); GLOMERULAR FILTRATION RATE > 60.0 (>56); GLUCOSE, FASTING 88 MG/DL (70-105); POTASSIUM SERUM 4.3 MEQ/L (3.5-5.1); SODIUM LEVEL 142 MEQ/L (136-145)
[2017-01-30] MEDS: DULoxetine 30 MG CAP (CYMBALTA) PO SCH (08:33)
[2017-01-30] MEDS: cloNIDine 0.1 MG TAB PO SCH (08:33)
[2017-01-30] MEDS: CARVedilol 3.125 MG TAB PO SCH (08:33)
[2017-01-30] MEDS: GABAPENTIN 400 MG CAP PO SCH (08:33)
[2017-01-30] MEDS: FINASTERIDE 5 MG TAB PO SCH (08:33)
[2017-01-30] MEDS: amLODIPine 5 MG TAB PO SCH (08:34)
[2017-01-30] MEDS: **NOTE PATIENT COMMENT** MISC XX SCH (08:34)
[2017-01-30 10:00] VITALS: BP 121/72
[2017-01-30] MEDS ORDERED: HYDR-3716 PO (10:34)
[2017-01-30] MEDS ORDERED: LIDO5TD TD (10:34)
[2017-01-30] MEDS ORDERED: ALPR0.25 PO (10:34)
--- NOTE | 2017-02-15 09:42 | RO ---
DATE OF PROCEDURE: 01/21/2017 PREPROCEDURE DIAGNOSES: Right below knee amputation gangrene, right lower extremity atherosclerotic arterial occlusive disease, right below knee amputation contracture. 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 PROCEDURE: Right above knee amputation. SURGEON: Aquilino King MD WOODS OVERSEER: None. ANESTHESIA: General endotracheal. ESTIMATED BLOOD LOSS: 150 mL. IV FLUIDS: 600 mL. SPECIMENS: Right below knee amputation stump. COMPLICATIONS: None. DRAINS: None. IMPLANTS: None. INDICATION: The patient is a 57-year-old male who underwent a right below knee amputation and now has breakdown of his stump with extensive gangrene and muscle necrosis, as well as contracture in the right lower extremity below knee amputation stump. The patient will undergo an above knee amputation on the right. Risks, benefits and alternative treatment options were discussed with the patient. Alternative treatment options included but were not limited to no intervention. Risks, included, but were not limited to infection, bleeding, renal failure requiring hemodialysis, possible need for further open surgical intervention, cerebrovascular accident, myocardial infarction, pulmonary embolus, deep vein thrombosis (DVT), loss of limb, loss of life and poor outcome. The patient understands and accepts these risks and consents to proceed. DESCRIPTION OF PROCEDURE: The patient was taken to the operating room and placed supine on the operating room table and then prepped and draped in the standard surgical fashion. A time-out was completed by myself and the members in the room, confirming the correct procedure, patient and laterality. The circumferential incision was then made just above the knee with a scalpel. This was then carried down through the subcutaneous tissue and muscle to the femur, using Bovie electrocautery. The femur was then transected using a bone saw, after which hemostasis was obtained and the posterior fascia was approximated to the anterior fascia using #2-0 Prolene suture. The skin was closed using darrion. Dressings were applied. The patient tolerated the procedure well. All instrument, sponge and needle counts were correct at the end of the case. There were no complications. Dr. King was present for and directed the entire case. The patient was transferred to the recovery room, awake, alert, extubated, and in stable condition.
--- NOTE | 2017-02-15 10:42 | RO ---
DATE OF PROCEDURE: 01/17/2017 PREOPERATIVE DIAGNOSES: Right femoral artery bleeding. Right below knee amputation stump gangrene. POSTOPERATIVE DIAGNOSES: Right femoral artery bleeding. Right below knee amputation stump gangrene. PROCEDURE: Right femoral artery exploration with removal of bypass graft and patch angioplasty of the right common femoral artery with XenoSure biologic patch, removal of right femoral to popliteal artery bypass graft, right below knee amputation stump debridement with excisional debridement with removal of skin, subcutaneous tissue and muscle. SURGEON: Aquilino King MD JIGGER CROWN POUNCING MACHINE OPERATOR: ANESTHESIA: General endotracheal. INDICATION: The patient is a 57-year-old male who underwent a right femoral to popliteal artery bypass graft and subsequent right below knee amputation who has had bleeding from his right groin wound as well as necrosis of his right below knee amputation stump. The patient will undergo exploration of the right femoral artery and debridement of his right below knee amputation stump. Risks, benefits and alternative treatment options were discussed with the patient. Alternative treatment options included, but were not limited to, no intervention. Benefits included, but were not limited to prevention of catastrophic bleeding and removal of nonviable tissue from the below knee amputation stump. Risks included, but were not limited to, infection, bleeding, renal failure requiring hemodialysis, possible need for further surgical intervention, possible need for higher level of amputation, cerebrovascular accident (CVA), myocardial infarction, pulmonary embolus, deep vein thrombosis (DVT), loss of limb, loss of life and poor outcome. The patient's questions were answered. The patient voices understands of the risks, benefits and alternative treatment options. The patient consents to proceed and accepts these risks of the right femoral arterial exploration and debridement of right below knee amputation stump. ESTIMATED BLOOD LOSS: 1600 mL. IV FLUIDS: 2100 mL of crystalloid, 2 units of packed red blood cells. DRAINS: #10 Nathan-Briscoe. COMPLICATIONS: None. SPECIMENS: None. IMPLANTS: XenoSure biologic patch used to patch the right common femoral artery. DESCRIPTION OF PROCEDURE: Patient was taken to the operating room, placed supine on the operating room table and the right femoral incision was reopened which showed dissociation of the bypass graft and bleeding from the common femoral artery. The common femoral artery was sharply dissected proximally and distally and then controlled using vessel loops. The bypass graft was removed along the length of the thigh down to the below knee amputation stump after which the common femoral artery underwent patch angioplasty with a XenoSure biologic patch and #6-0 Prolene suture. There was good flow through the common femoral artery into the armand femoris artery at the completion of the patch angioplasty. The incision was then closed using #2-0 Vicryl to approximate the deeper layers and darrion to approximate the skin. The right below knee amputation stump then underwent debridement of an extensive amount of necrotic tissue with removal of skin, subcutaneous tissue and muscle with the wound measuring approximately 20 cm x 20 cm and approximately 5 cm in depth. The wound was then packed with wet to dry dressing. All instrument, sponge and needle counts were correct at the end of the case. There were no complications. Dr. King was present for and directed the entire case. The patient was transferred to the recovery room and subsequently to the floor in stable condition.
--- NOTE | 2017-02-16 11:50 | DS.PDOC ---
Discharge Summary General Date of Admission Jan 19, 2017 at 13:53 Date of Discharge 01/30/2017 Attending Physician: Aquilino King MD Discharge Summary PROCEDURES PERFORMED DURING STAY: Right above-knee amputation. Removal of right femoral-popliteal artery bypass graft with patch angioplasty of the right common femoral artery. ADMITTING DIAGNOSES: 1. Right below-knee amputation stump necrosis. 2. Infected right femoral-popliteal artery bypass graft with bleeding from right groin incision. 3. Aortoiliac and femoral-popliteal arterial sclerotic and atherosclerotic arterial occlusive disease. DISCHARGE DIAGNOSES: 1. Right below-knee amputation stump necrosis. 2. Infected right femoral-popliteal artery bypass graft with bleeding from right groin incision. 3. Aortoiliac and femoral-popliteal arterial sclerotic and atherosclerotic arterial occlusive disease. COMPLICATIONS/CHIEF COMPLAINT: Rt Femoral Artery Bleed. HISTORY OF PRESENT ILLNESS: Patient was admitted with bleeding from the right groin and underwent expiration with removal of an infected bypass graft and patch angioplasty of the femoral artery as well as debridement of his right below-knee amputation stump which was necrotic. HOSPITAL COURSE: After the initial operation the patient underwent a right above -knee amputation due to severe necrosis of the right below-knee amputation stump. Patient did well postoperatively pain was well-controlled and is now stable for discharge to home DISCHARGE MEDICATIONS: Please see below. ALLERGIES: Please see below. PHYSICAL EXAMINATION ON DISCHARGE: VITAL SIGNS: Please see below. GENERAL: Lying in bed comfortably HEENT: Normal NECK: Supple with no carotid bruits CARDIOVASCULAR EXAMINATION: Regular rate and rhythm RESPIRATORY EXAMINATION: Clear to auscultation bilaterally ABDOMINAL EXAMINATION: Soft nontender nondistended EXTREMITIES: Right above-knee amputation stump is healing well. Right groin incision is healing well. SKIN: Warm and well-perfused NEUROLOGICAL EXAMINATION: Awake alert oriented 3 with no focal deficits PSYCHIATRIC EXAMINATION: Normal LABORATORY DATA: Please see below. PROGNOSIS: Good ACTIVITY: As tolerated. DIET: Resume previous diet. DISCHARGE PLAN: Patient will be discharged home and follow-up in the office in 7 -10 days. DISPOSITION: Home Health Service. DISCHARGE INSTRUCTIONS: 1. Continue with aggressive physical therapy keep dry dressings on the above knee amputation stump and right groin incisions. DISCHARGE CONDITION: Stable. TIME SPENT ON DISCHARGE: Greater than he 45 minutes. Discharge Medications Scheduled Amlodipine Besylate (Amlodipine Besylate) 5 Mg Tab, 5 MG PO DAILY, (Reported) Atorvastatin Calcium (Atorvastatin Calcium) 20 Mg Tab, 20 MG PO QHS, (Reported) Carvedilol (Carvedilol) 3.125 Mg Tab, 3.125 MG PO BID, (Reported) Clonazepam (Clonazepam) 0.5 Mg Tab, 0.5 MG PO BID for ANXIETY Clonidine Hydrochloride (Clonidine HCl) 0.1 Mg Tab, 0.1 MG PO TID, (Reported) Duloxetine Hcl (Duloxetine HCl) 30 Mg Cap, 30 MG PO BID, (Reported) Finasteride (Finasteride) 5 Mg Tab, 5 MG PO DAILY, (Reported) Gabapentin (Gabapentin) 800 Mg Tab, 800 MG PO TID, (Reported) Oxycodone HCl (Oxycontin) 30 Mg Tab, 30 MG PO BID, (Reported) Warfarin Sod (Warfarin Sodium) 4 Mg Tab, 8 MG PO QPM, (Reported) Scheduled PRN Acetaminophen/Hydrocodone (Hydrocodone/Acetaminophen 7.5-325 mg) 1 Tab Tab, 1 TAB PO Q4HP PRN for PAIN Albuterol Sulfate (Ventolin Hfa) 200 Puff/8 Gm Aers, 2 PUFF INH Q4H PRN for SHORTNESS OF BREATH, (Reported) Alprazolam (Alprazolam) 0.25 Mg Tab, 0.25 MG PO QHS PRN for ANXIETY/AGITATION Lidocaine (Lidocaine) 5 % Pad, 1 PATCH TD DAILY@2100 PRN for PAIN Oxycodone/Acetaminophen (Oxycodone/Acetaminophen 5-325 mg) 1 Tab Tab, 1 TAB PO Q6H PRN for PAIN, (Reported) Trazodone HCl (Trazodone HCl) 50 Mg Tab, 150 MG PO QHS PRN for SLEEP, (Reported) Allergies Coded Allergies: No Known Drug Allergy (Verified Allergy, Unknown, 07/23/16) Aquilino King MD Feb 16, 2017 11:50
== END 2017-01-30 14:03 | disposition home health service (06) | DRG 240 ==
LOC: PREINTOOBSV 12:26 → M PCU 12:33 → M ICU 23:30 → M MSPAV 01-18 18:03 → OBSVTOIN 01-19 13:53
PROVIDERS: ADMIT Surgery Vascular Surgery; ATTEND Surgery Vascular Surgery
PROC: 30253N1 (ICD-10-PCS; 2017-01-17)
PROC: 04P Lower Arteries, Removal (ICD-10-PCS; 2017-01-17)
PROC: 04PY0JZ Removal of Synthetic Substitute from Lower Artery, Open Approach (ICD-10-PCS; 2017-01-17)
PROC: 0KBS0ZZ Excision of Right Lower Leg Muscle, Open Approach (ICD-10-PCS; 2017-01-17)
PROC: 04UK0KZ Supplement Right Femoral Artery with Nonautologous Tissue Substitute, Open Approach (ICD-10-PCS; 2017-01-17)
PROC: 0Y6C0Z3 Detachment at Right Upper Leg, Low, Open Approach (ICD-10-PCS; 2017-01-21)
PROC: 02HV33Z Insertion of Infusion Device into Superior Vena Cava, Percutaneous Approach (ICD-10-PCS; principal; 2017-01-24)
DX: T82.838A Hemorrhage due to vascular prosthetic devices, implants and grafts, initial encounter (principal); I70.261 Atherosclerosis of native arteries of extremities with gangrene, right leg; T87.53 Necrosis of amputation stump, right lower extremity; J44.9 Chronic obstructive pulmonary disease, unspecified; F32.9 Major depressive disorder, single episode, unspecified; Z86.73 Personal history of transient ischemic attack (TIA), and cerebral infarction without residual deficits; Z79.891 Long term (current) use of opiate analgesic; Z79.01 Long term (current) use of anticoagulants; Z79.899 Other long term (current) drug therapy; Z95.2 Presence of prosthetic heart valve; Z95.5 Presence of coronary angioplasty implant and graft; Z87.891 Personal history of nicotine dependence; Y83.1 Surgical operation with implant of artificial internal device as the cause of abnormal reaction of the patient, or of later complication, without mention of misadventure at the time of the procedure

== ENCOUNTER → 2017-02-04 | Outpatient (REF) | payer MEDICARE, MEDICAID ==
[~2017-02-04] MED LIST changes: +ALPR0.25 PO; +HYDR-3716 PO; +LIDO5TD TD; +OXYC1TAB23 PO; +OXYC30TA72 PO; +TRAZ50TA11 PO; +WARF-20 PO
[2017-02-04 13:27] LABS: INR 1.5
== END ==
LOC: M LAB REF 10:15
PROVIDERS: ATTEND Nurse Practitioner Family
DX: Z51.81 Encounter for therapeutic drug level monitoring (principal); Z79.01 Long term (current) use of anticoagulants; H34.232 Retinal artery branch occlusion, left eye; G46.4 Cerebellar stroke syndrome

== ENCOUNTER → 2017-02-15 | Outpatient (REF) | payer MEDICARE, MEDICAID ==
[2017-02-15 20:54] LABS: INR 5.63
== END ==
LOC: M LAB REF 10:00
PROVIDERS: ATTEND Nurse Practitioner Family
DX: Z51.81 Encounter for therapeutic drug level monitoring (principal); Z79.01 Long term (current) use of anticoagulants; G46.4 Cerebellar stroke syndrome; H34.232 Retinal artery branch occlusion, left eye

== ENCOUNTER → 2017-02-18 | Outpatient (REF) | payer MEDICARE, MEDICAID ==
[2017-02-18 15:37] LABS: INR 2.13
== END ==
LOC: M SHH 14:42
PROVIDERS: ATTEND Nurse Practitioner Family
DX: Z51.81 Encounter for therapeutic drug level monitoring (principal); Z79.01 Long term (current) use of anticoagulants; H34.232 Retinal artery branch occlusion, left eye; G46.4 Cerebellar stroke syndrome

== ENCOUNTER → 2017-02-21 | Outpatient (REF) | payer MEDICARE, MEDICAID ==
[2017-02-21 12:41] LABS: INR 2.32
== END ==
LOC: M SHH 12:01
PROVIDERS: ATTEND Nurse Practitioner Family
DX: Z51.81 Encounter for therapeutic drug level monitoring (principal); Z79.01 Long term (current) use of anticoagulants; H34.232 Retinal artery branch occlusion, left eye; G46.4 Cerebellar stroke syndrome

== ENCOUNTER → 2017-02-28 | Outpatient (REF) | payer MEDICARE, MEDICAID ==
[2017-02-28 10:40] LABS: INR 1.14
== END ==
LOC: M SHH 10:14
PROVIDERS: ATTEND Nurse Practitioner Family
DX: Z79.01 Long term (current) use of anticoagulants (principal); H34.232 Retinal artery branch occlusion, left eye; G46.4 Cerebellar stroke syndrome

== ENCOUNTER → 2017-03-07 | Outpatient (REF) | payer MEDICARE, MEDICAID ==
[2017-03-07 14:27] LABS: INR 3.46
== END ==
LOC: M SHH 13:47
PROVIDERS: ATTEND Nurse Practitioner Family
DX: H34.232 Retinal artery branch occlusion, left eye (principal); Z79.01 Long term (current) use of anticoagulants; G46.4 Cerebellar stroke syndrome

== ENCOUNTER → 2017-03-14 | Outpatient (REF) | payer MEDICARE, MEDICAID ==
[2017-03-14 18:21] LABS: INR 3.63
== END ==
LOC: M SHH 15:45
PROVIDERS: ATTEND Nurse Practitioner Family
DX: Z51.81 Encounter for therapeutic drug level monitoring (principal); Z79.01 Long term (current) use of anticoagulants; H34.232 Retinal artery branch occlusion, left eye; G46.4 Cerebellar stroke syndrome

== ENCOUNTER → 2017-03-22 | Outpatient (REF) | payer MEDICARE, MEDICAID ==
[2017-03-22 17:24] LABS: INR 1.72
== END ==
LOC: M LAB REF 16:21
PROVIDERS: ATTEND Nurse Practitioner Family
DX: Z79.01 Long term (current) use of anticoagulants (principal)

== ENCOUNTER → 2017-03-29 | Outpatient (REF) | payer MEDICARE, MEDICAID ==
[2017-03-29 15:15] LABS: INR 2.58
== END ==
LOC: M SHH 14:47
PROVIDERS: ATTEND Nurse Practitioner Family
DX: Z51.81 Encounter for therapeutic drug level monitoring (principal); Z79.01 Long term (current) use of anticoagulants; G46.4 Cerebellar stroke syndrome; H34.232 Retinal artery branch occlusion, left eye

== ENCOUNTER → 2017-05-09 | Outpatient (CLI) | payer MEDICARE, MEDICAID ==
--- NOTE | 2017-05-11 00:45 | ECWPNPC ---
PATIENT NAME: NICOLASA BURNETT : 1960 GENDER: MALE VISIT DATE: 05/09/2017 DISCHARGE DATE: 05/09/17 1603 VISIT LOCKED DATE TIME: PHYSICIAN: FOSTER WASHINGTON RESOURCE: FOSTER WASHINGTON REASON FOR APPOINTMENT 1. R LOWER EXTREMITY AND STUMP PAIN HISTORY OF PRESENT ILLNESS NEW PATIENT CONSULT: WHEN DID YOUR PAIN FIRST START? . BRIEFLY DESCRIBE HOW YOUR PAIN STARTED? . HOW DOES YOUR PAIN CHANGE WITH TIME? . DOES YOUR PAIN AWAKEN YOU FROM SLEEP? . HOW MANY HOURS OF SLEEP DO YOU NORMALLY GET? . ANY DIAGNOSTIC TESTING? . FACILITY WHERE TESTS WERE DONE? ____. PAIN TREATMENT TREATMENT YES CANCER HAVE YOU EVER HAD ANY TYPE OF CANCER?YES COLON CANCER CANCER TREATMENT?SURGERY NO. PAIN SCREENING: PATIENT HAS A COMPLAINT OF ACUTE OR CHRONIC PAIN :YES FALL RISK SCREENING: SCREENING :NO FALLS IN THE PAST YEAR ROTH INVENTORY: QUESTIONNAIRE ASSESSEDNO UNABLE TO BE SCORED PT DID NOT COMPLETE FORM SCORE VALUE CALCULATED NO VERBALLY QUESTIONED - DENIES SUICIDAL OR HOMICIDAL IDEATION. TODAY'S VISIT: NOTES: REFERRED BY DR GONZALEZ (VASCULAR SURGEON) FOR RIGHT LOWER EXTREMITY AND LEG PAIN. HAS HAD A VERY DIFFICULT YEAR WITH VASCULAR ISSUES TO THE LEGS RESULTING IN INITIALLY BKA AND THE AKA TO THIS LEG. HE WAS FINALLY DISCHARGED FROM THE HOSPITAL TO HOME. HAS BEEN WORKING WITH PT TO BE FITTED FOR A RIGHT LOWER EXT PROSTHESIS. HAS PAIN AND NUMBNESS IN THE TIGHT GROIN, A STINGING SENSATION OVER THE EDGES OF THE INCISION AND A THROBBING PAIN FROM THE MID INCISION UP THE QUAD APPROX 6 INCHES. STATES HAS HAD SOME ISSUES WITH OPEN AREAS BUT THESE ARE CURRENTLY HEALED. DOES HAVE SOME PHANTOM LIMB PAIN. DESCRIBES THIS A TIGHT CLAUSTROPHOBIC FEELING. THIS IS CONSTANT. IT'S HARD TO TELL WHICH IS THE WORST AREA. HAS CONTINUED TO HAVE VASCULAR ISSUES WITH THE LEFT LEG AND IS SCHEDULED FOR A DYE TEST WITH DR GONZALEZ. ALSO HAS PAIN AREAS IN THE LOW BACK AND HAS HAD INJECTION THERAPY HERE WITH DR FARAH ABOUT 5 YEARS AGO. LEFT HIP HAS ALSO BEEN AN INJURED AREA FROM 1994 WHICH IS A SETTLED COMP CASE. REPORTS PERCOCET HAS BEEN HELPFUL AND IS TRYING TO TAKE FEW POSSIBLE.. CURRENT MEDICATIONS TAKING CARVEDILOL 3.125 MG TABLET ORALLY BID TAKING ALPRAZOLAM 0.25 MG TABLET 1 TABLET ORALLY AT BEDTIME NEEDED TAKING DULOXETINE HCL 30 MG CAPSULE DELAYED RELEASE PARTICLES 1 CAPSULE ORALLY TWICE A DAY TAKING GABAPENTIN 800 MG TABLET ORALLY THREE TIMES DAILY TAKING ATORVASTATIN CALCIUM 20 MG TABLET ORALLY DAILY TAKING CLONIDINE HCL 0.1 MG TABLET ORALLY THREE TIMES DAILY TAKING WARFARIN SODIUM 4 MG TABLET 2 TABS ORALLY DAILY TAKING TRAZODONE HCL 50 MG TABLET 3 TABS ORALLY BEFORE BEDTIME TAKING AMLODIPINE BESYLATE 5 MG TABLET ORALLY DAILY TAKING FINASTERIDE 5 MG TABLET ORALLY DAILY TAKING OXYCODONE-ACETAMINOPHEN 5-325 MG TABLET ORALLY EVERY 6 HOURS NEEDED FOR PAIN NOT-TAKING OXYCODONE HCL 30 MG TABLET ORALLY EVERY 12 HOURS NOT-TAKING TRAMADOL HCL 50 MG TABLET ORALLY EVERY 6 HOURS NEEDED NOT-TAKING SULFAMETHOXAZOLE-TMP DS 160-800 MG TABLET ORALLY BID FOR 10 DAYS MEDICATION LIST REVIEWED AND RECONCILED WITH THE PATIENT PAST MEDICAL HISTORY DOUBLE BYPASS / HX PVD AND CAD DIVERTICULITIS R BKA PANCREATITIS PVD RIGHT CVA HTN BLOOD CLOT X 2 IN RIGT LEG DEPRESSION COPD ALLERGIES N.K.D.A. SURGICAL HISTORY VALVE REPLACEMENT ( AORTIC VALVE), ANURYSM SURGERY 2015 COLON RESECTION FOR CANCER 2015 R BKA DECEMBER 2016 ANGIOPLASTY AMNA LOWER EXTREMITIES JAN 2016 R AKA JAN 2017 FAMILY HISTORY FATHER: ALIVE, DIAGNOSED WITH DIABETES, CANCER MOTHER: ALIVE, DIAGNOSED WITH OTHER PATERNAL GRAND FATHER: DIAGNOSED WITH CANCER MATERNAL GRAND FATHER: DIAGNOSED WITH HYPERTENSION MATERNAL GRAND MOTHER: DIAGNOSED WITH HYPERTENSION 3 SISTER(S) - HEALTHY. SOCIAL HISTORY GENERAL: TOBACCO USE ARE YOU A:FORMER SMOKER HOW LONG HAS IT BEEN SINCE YOU LAST SMOKED?1-5 YEARS ALCOHOL SCREENING DID YOU HAVE A DRINK CONTAINING ALCOHOL IN THE PAST YEAR?NO POINTS0 INTERPRETATIONNEGATIVE RECREATIONAL DRUG USE DRUG USE?NO CAFFEINE CAFFEINE USE?YES 1-2 CUPS PER DAY DIET: NO ADDED SALT. OTHERS AT HOME: MOTHER. PETS: 1 CAT. EPISCOPALIAN EPISCOPALIAN NO JEWISH BELIEFS THAT WOULD IMPACT HEALTH CARE. LANGUAGE LANGUAGES SPOKEN:URUGUAYAN EDUCATION LEVEL OF EDUCATION:HIGH SCHOOL LEARNING BARRIERS / SPECIAL NEEDS HEARING IMPAIRED?NO VISION IMPAIRED?YES :CORRECTIVE LENSES SPECIAL DEVICES?YES :CANE, WALKER, WHEELCHAIR PAIN CLINIC PFS, CLERGY, PUBLIC HEALTH REFERRALS PFS REFERRAL NEEDED?NO CLERGY REFERRAL NEEDED?NO PUBLIC HEALTH REFERRAL NEEDED?NO WAS THE PROVIDER NOTIFIED OF ANY PERTINENT INFO?NO HAS THE PATIENT BEEN EDUCATED REGARDING HIS/HER PLAN OF CARE?YES HAS THE PATIENT BEEN EDUCATED REGARDING PAIN, THE RISK FOR PAIN, THE IMPORTANCE OF EFFECTIVE PAIN MANAGEMENT, AND THE PAIN ASSESSMENT PROCESS?YES PATIENT: ____. TRAVEL OUTSIDE US: DENIES. HOSPITALIZATION/MAJOR DIAGNOSTIC PROCEDURE CVA 12/2015 SURGERY RELATED REVIEW OF SYSTEMS REVIEWED BY: PROVIDER: FOSTER URIARTE . CONSTITUTIONAL: ANY CHANGE IN YOUR MEDICAL CONDITION? NO . CHILLS NO . FEVER NO . INFECTION: DO YOU HAVE NEW INFECTIONS? NO . DO YOU HAVE HISTORY OF MRSA? NO . MUSCULOSKELETAL: ANY NEW PATTERNS OF PAIN OR NUMBNESS? NO . SYTEMIC LUPUS NO . GASTROENTEROLOGY: ANY NEW CHANGE IN BOWEL CONTROL? NO . BARRETTS ESOPHAGUS NO . CIRRHOSIS NO . HEPATITIS NO . LIVER FAILURE NO . ACID REFLUX NO . UNEXPLAINED WEIGHT LOSS NO . GENITOURINARY: ANY NEW CHANGE IN BLADDER CONTROL? NO . IS THERE A CHANCE YOU COULD BE ? NO . HEMATOLOGY/LYMPH: DO YOU TAKE ANY BLOOD THINNERS? (FOR EXAMPLE- COUMADIN, PLAVIX, AGGRENOX, PLATEL, PRADAXA, OR XARELTO) YES - COUMADIN. INR THERAPEUTIC . WHEN WAS YOUR LAST DOSE? DATE: TIME: . LOW PLATELET COUNT NO . SICKLE CELL DISEASE NO . VON WILLIEBRANDS NO . FACTOR V LEIDEN NO . THALLASEMIA NO . ANEMIA NO . EASY BRUISING NO . NEUROLOGY: HAVE YOU FALLEN IN THE PAST 6 MONTHS? NO . ANY NEW EXTREMITY NUMBNESS OR WEAKNESS? NO . HEAD INJURY NO . DEMENTIA NO . CEREBRAL PALSY NO . MULTIPLE SCLEROSIS NO . DIZZINESS NO . HEADACHE NO . STROKES YES . VERTIGO NO . CARDIOLOGY: DO YOU HAVE A PACEMAKER OR DEFIBRILLATOR? NO . ANGINA NO . HEART ATTACK NO . HEART SURGERY YES . CONGESTIVE HEART FAILURE/FLUID OVERLOAD NO . CHEST PAIN NO . HIGH BLOOD PRESSURE YES . IRREGULAR HEART BEAT NO . RESPIRATORY: HAVE YOU BEEN SICK IN THE PAST WEEK? NO . FEVER NO . FLU LIKE SYMPTOMS? NO . CPAP NO . BYPAP NO . ASTHMA NO . EMPHYSEMA NO . CHRONIC LUNG DISEASES YES . SHORTNESS OF BREATH ON EXERTION NO . DO YOU USE ANY TYPE OF TOBACCO (SMOKE, SMOKELESS, CHEW)? NO . COUGH NO . SNORING NO . INTEGUMENTARY: DO YOU HAVE ANY RASHES OR OPEN SORES? NO . ALLERGIC/IMMUNO: ARE YOU ALLERGIC TO SHELLFISH OR IV DYE? NO . ANY NEW ALLERGIES? NO . PSYCHIATRIC: DO YOU HAVE THOUGHTS OF HURTING YOURSELF OR SOMEONE ELSE? NO . ARE YOU ABUSED, NEGLECTED, OR IN AN UNSAFE ENVIRONMENT? NO . ENDOCRINOLOGY: ARE YOU DIABETIC? NO . THYROID DISORDER NO . OTHER: DO YOU NEED ANY PRESCRIPTIONS? NO . IF YES, PLEASE LIST: ____ . ANY NEW PROBLEMS WITH YOUR MEDICATIONS? NO . WHEN DID YOU LAST EAT? ____ . WHEN DID YOU LAST DRINK? ____ . WHAT DID YOU LAST DRINK? ____ . NAME OF PERSON DRIVING YOU HOME? ____ . DO YOU HAVE ANY OTHER QUESTIONS OR CONCERNS NO . VITAL SIGNS WT 224.4 LBS, HT 74", BMI 28.81 INDEX, BP 185/87 MM HG, HR 79 /MIN, RR 18 /MIN, TEMP 96.4 F, OXYGEN SAT % 98%, NA INITIALS TL 1432, REVIEWED BY: AUGUSTUS AGUIRRE, FARSHAD Berg AWARE- TL. EXAMINATION GENERAL EXAMINATION: GENERAL APPEARANCE:COLOR PINK/SKIN WARM AND DRY. PSYCHALERT , ORIENTED X 3 , APPROPRIATE MOOD AND AFFECT , GOOD EYE CONTACT. HEENT:NORMOCEPHALIC, NO LYMPHADENOPATHY, NO THYROMEGLY. LUNGS:CLEAR TO AUSCULTATION BILATERALLY, NO WHEEZES, RALES OR RHONCHI. HEART:HEART RATE REGULAR, NORMAL S1S2, NO MURMURS, CLICK OR RUBS, NO CAROTID BRUITS. ABDOMEN:SOFT, NON-TENDER/NON-DISTENDED, BOWEL SOUNDS PRESENT. RIGHT ILIOINGUINAL REGION NUMBNESS. WELL HEALED BUT VERY DEEP INCISIONS NOTED RIGHT GROIN. NO OPEN WOINDS IN THIS AREA. PALPABLE GRAFT NOTED. MUSCULOSKELETAL:TENDER OVER LUMBAR PARAVERTEBRAL MUSCLES, TRIGGER POINTS AND TIGHT FIBROUS BANDS IDENTIFIED OVER LUMBAR SACRAL AXIS. RESTRICTION OF ROM WITH FLEXION/EXTENSION OF THE SPINE. EXTREMITIES:RIGHT AKA. STUMP INCISION WELL HEELED. AREAS OF HYPERSENSITIVITY OVER THE MEDIAL AND LATERAL EDGES OF THE INCISION. SLIGHT EDEMA AND TENDERNESS WITH PALPATION OVER THE FEMUR AT THE CENTER OF THE INCISION. COOLNESS WITH PALPATION ON DISTAL ASPECT OF INCISION. NO EDEMA LEFT FOOT. PEDAL AND POST TIBIAL PULSES TRACE. TOES DUSKY WITH FAIR CAPILARY REFILL. NO OPEN LESIONS NOTED OVER LEFT FOOT/ANKLE/ TOES.. 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 RECOMMEND REMOVING ALL THROW RUGS. 2. RECOMMEND NIGHT LIGHTS 3. RECOMMEND WEARING RUBBER SOLED SHOES AND TO NOT GO BAREFOOT. 4.. ADVISED TO CHANGE POSITION SLOWLY FROM SUPINE TO STANDING TO AVOID DIZZINESS. 5. ADVISED TO USE ASSISTIVE DEVICE SUCH WALKER 6. USE [employer] OR KEEP PORTABLE PHONE READILY AVAILABLE, #128 - SCREENING BMI AND F/U PLAN IN : BMI ABOVE NORMAL TODAY. DISCUSSED WITH PATIENT NUTRITIONAL FOOD CHOICES TO ASSIST WITH WEIGHT LOSS. RECCOMMENDED REDUCING SALT, SUGAR, SODA INTAKE. CLINICAL NOTES: LENGTHY DISCUSSION HELD WITH PATIENT REGARDING USP PLANS FOR PAIN CONTTROL. PT STATES HE DOES NOT WANT TO BE OPIATES USP. A FAMILY MEMBER HAD SUGGESTED MEDICAL MARIJUANA. I DID REVIEW WITH HIM THAT WE CANNOT KEEP HIM ON BOTH MARIJUANA AND OPIATES BUT WOULD BE WILLING TO BRIDGE THIS. , ISTOP REGISTRY REVIEWED AND DEMNOSTRATES COMPLLIANCE. (REFERENCE # [id number]). PREVENTIVE MEDICINE WENT OVER NARCOTIC AGREEMENT WITH PT EXPRESSING UNDERSTANDNG. PROCEDURE CODES FA211 ESTABILISHED PATIENT [facility] FACILITY CHARGE G6483 BP SCR PRFRM RCMDD DEFIND SCR INTVL G8730 PAIN ASSESS POS TOOL F/U PLAN DOC 3016F PT SCRND UNHLTHY OH USE 1124F ACP DISCUSS-NO DSCNMKR DOCD 1036F TOBACCO NON-USER 0518F FALL PLAN OF CARE DOCD G8427 DOC MEDS VERIFIED W/PT OR RE G8417 BMI >=30 CALCUATE W/FOLLOWUP 3288F FALL RISK ASSESSMENT DOCD DISPOSITION & COMMUNICATION FOLLOW UP 26-28 DAYS ELECTRONICALLY SIGNED BY ROBIN PARRY ON 05/09/2017 AT 05:26 PM EST DISCLAIMER : THIS IS A VISIT SUMMARY EXTRACTED FROM THE [employer] CHART. IT IS NOT A COPY OF THE [employer] PROGRESS NOTE. MTDD
== END ==
LOC: M PAIN 14:15
PROVIDERS: ATTEND Nurse Practitioner Family
DX: G89.29 Other chronic pain (principal); G54.6 Phantom limb syndrome with pain; I25.10 Atherosclerotic heart disease of native coronary artery without angina pectoris; F32.9 Major depressive disorder, single episode, unspecified; I73.9 Peripheral vascular disease, unspecified; I10 Essential (primary) hypertension; J44.9 Chronic obstructive pulmonary disease, unspecified; Z95.2 Presence of prosthetic heart valve; Z89.611 Acquired absence of right leg above knee; Z79.891 Long term (current) use of opiate analgesic; Z86.718 Personal history of other venous thrombosis and embolism; Z95.1 Presence of aortocoronary bypass graft; Z90.49 Acquired absence of other specified parts of digestive tract; Z85.038 Personal history of other malignant neoplasm of large intestine; Z98.62 Peripheral vascular angioplasty status; Z87.891 Personal history of nicotine dependence

== ENCOUNTER → 2017-05-19 | Outpatient (CLI) | payer MEDICARE, MEDICAID ==
--- NOTE | 2017-05-19 12:53 | REP ---
Abdominal aorta ultrasound: Abdominal Aortic Measurements are as follows: Proximal 1.9 cm AP 3.1 cm TRV Renal Artery Level 1.8 cm AP 2.2 cm TRV Mid Aorta 2.0 cm AP 2.0 cm TRV Distal Aorta 2.4 cm AP 2.7 cm TRV R Iliac Artery 9.3 cm AP L Iliac Artery 9.8 cm AP Flow velocities: Proximal 50.4 cm/sec. Renal artery level 50.4 cm/sec. Mid aorta 38.7 cm/sec. Distal aorta 19.9 cm/sec. Right iliac stent, 62.8 cm/sec Left iliac stent, 16.29 cm/sec. Impression: There is no abdominal aortic aneurysm. Peak flow velocities are all low and are most severely diminished in the distal aorta and in the left iliac stent. Signed by Alton Henning MD 05/19/2017 12:46 P
--- NOTE | 2017-05-19 13:17 | REP ---
BILATERAL LOWER EXTREMITY ARTERIAL DOPPLER ULTRASOUND: 05/19/2017. Clinical history: Severe peripheral vascular disease, iliac artery stents and a prior right SFA graft. The patient has an above-knee amputation on the right. Please evaluate. The right brachial artery has velocity 220 cm/s. The left brachial artery also 220 cm/s. Left dorsalis pedis 60 cm/s. CASE FINISHING MACHINE ADJUSTER 90 cm/s TAINA 0.41 LEFT PK SYSTOLIC VELOCITY PHASICITY MAKEUP ARTIST 488 cm/s Profunda 171 cm/s Very thin vessel SFA proximal occluded SFA mid occluded SFA distal revascularized 27.8 cm/s monophasic Popliteal 9.4 cm/s monophasic ERIC proximal 12.4 cm/s Tibioperoneal trunk 13.1 cm/s monophasic CASE FINISHING MACHINE ADJUSTER proximal 6.7 cm/s monophasic CASE FINISHING MACHINE ADJUSTER distal 8.8 cm monophasic ERIC distal 6.4 cm/s monophasic Completely occluded right common femoral artery is noted. There is severe stenosis of the left common femoral artery and left SFA occlusion noted proximal to mid with revascularization distally by genicular collaterals. Very slow flow in the popliteal artery to the foot. Left posterior tibial artery shows revascularization about the level of the medial malleolus with reversal of flow in the calf. The peroneal artery is the most prominent vessel in the calf. All this represents very severe disease. Signed by Charli Castro MD 05/19/2017 08:37 P
== END ==
LOC: M RAD 08:31
PROVIDERS: ATTEND Surgery Vascular Surgery
DX: Z09 Encounter for follow-up examination after completed treatment for conditions other than malignant neoplasm (principal); I73.9 Peripheral vascular disease, unspecified; Z95.5 Presence of coronary angioplasty implant and graft

== ENCOUNTER → 2017-06-08 | Outpatient (CLI) | payer MEDICARE, MEDICAID | LOC: M PAIN 14:30 | DX: G89.29 Other chronic pain (principal); G54.6 Phantom limb syndrome with pain; Z79.891 Long term (current) use of opiate analgesic; Z95.1 Presence of aortocoronary bypass graft; I73.9 Peripheral vascular disease, unspecified; Z86.73 Personal history of transient ischemic attack (TIA), and cerebral infarction without residual deficits; I10 Essential (primary) hypertension; Z86.718 Personal history of other venous thrombosis and embolism; F32.9 Major depressive disorder, single episode, unspecified; J44.9 Chronic obstructive pulmonary disease, unspecified; Z95.2 Presence of prosthetic heart valve; Z89.611 Acquired absence of right leg above knee; Z79.01 Long term (current) use of anticoagulants; Z79.899 Other long term (current) drug therapy; Z87.891 Personal history of nicotine dependence | CPT/HCPCS: G0463 ==

== ENCOUNTER → 2017-06-21 | Outpatient (REF) | payer MEDICARE, MEDICAID ==
[2017-06-21 15:25] LABS: ANION GAP 7 MEQ/L (8-16); BLOOD UREA NITROGEN 16 MG/DL (7-18); CALCIUM LEVEL 8.3 MG/DL (8.5-10.1); CARBON DIOXIDE LEVEL 28 MEQ/L (21-32); CHLORIDE LEVEL 103 MEQ/L (98-107); CREATININE FOR GFR 1.01 MG/DL (0.70-1.30); GLOMERULAR FILTRATION RATE > 60.0 (>56); GLUCOSE, FASTING 118 MG/DL (70-105); POTASSIUM SERUM 4.7 MEQ/L (3.5-5.1); SODIUM LEVEL 138 MEQ/L (136-145)
[2017-06-21 15:29] LABS: BASO # 0.1 10^3/uL (0.0-0.2); BASO % 1.1 % (0.0-1.0); EOS # 0.2 10^3/uL (0.0-0.50); EOS % 2.4 % (0.0-3.0); HEMATOCRIT 45.4 % (42.0-52.0); IMMATURE GRANULOCYTE # 0.1 10^3/uL (0-0); IMMATURE GRANULOCYTE % 0.8 % (0-0); LYMPH # 1.7 10^3/uL (1.5-4.5); LYMPH % 24.4 % (24.0-44.0); MEAN CORPUSCULAR HEMOGLOBIN 25.9 pg (27.0-33.0); MEAN CORPUSCULAR HGB CONC 30.8 g/dl (32.0-36.5); MEAN CORPUSCULAR VOLUME 84.1 fl (80.0-96.0); MONO # 0.5 10^3/uL (0.0-0.8); NEUTROPHILS # 4.6 10^3/uL (1.8-7.7); NEUTROPHILS % 64.3 % (36.0-66.0); PLATELET COUNT, AUTOMATED 226 10^3/uL (150-450); RED CELL DISTRIBUTION WIDTH 22.1 % (11.5-14.5); WHITE BLOOD COUNT 7.1 10^3/uL (4.0-10.0)
== END ==
LOC: M LAB REF 14:59
DX: I70.213 Atherosclerosis of native arteries of extremities with intermittent claudication, bilateral legs (principal); G46.4 Cerebellar stroke syndrome; H34.232 Retinal artery branch occlusion, left eye; Z51.81 Encounter for therapeutic drug level monitoring; Z79.01 Long term (current) use of anticoagulants
CPT/HCPCS: 80048

== ENCOUNTER → 2017-06-21 | Outpatient (REF) | payer MEDICARE, MEDICAID ==
[2017-06-21 15:33] LABS: PROTHROMBIN TIME 38.6 SECONDS (12.4-14.5)
== END ==
LOC: M LAB REF 15:00
DX: Z51.81 Encounter for therapeutic drug level monitoring (principal); Z79.01 Long term (current) use of anticoagulants; H34.232 Retinal artery branch occlusion, left eye; G46.4 Cerebellar stroke syndrome; I70.213 Atherosclerosis of native arteries of extremities with intermittent claudication, bilateral legs

== ENCOUNTER → 2017-07-11 | Outpatient (REF) | payer MEDICARE, MEDICAID ==
[2017-07-11 10:56] LABS: INR 2.78; PROTHROMBIN TIME 30.6 SECONDS (12.4-14.5)
== END ==
LOC: M SHH 10:36
DX: Z79.01 Long term (current) use of anticoagulants (principal)
CPT/HCPCS: 85610

== ENCOUNTER → 2017-07-12 | Outpatient (CLI) | payer MEDICARE, MEDICAID ==
[~2017-07-12] MED LIST changes: -/AUGM875TA OR; -ALBU17IN INH; -ALBUTEROL INHALER INH; -ALPR0.25 PO; -AMIT25TA2 OR; -AMLO10TA2 PO; -AMLO5TAB2 PO; -ASPI81TA2 PO; -ATOR1TAB21 PO; -BACITAB PO; -CARV3.12 PO; -CHLO125TA PO; -CIPR-249 PO; -CIPR-250 PO; -CIPR500T89 PO; -CLON-412 PO; -CLON0.5T PO; -COUM10TA PO; -COUM1TAB14 PO; -COUM1TAB17 PO; -COUM7.5T PO; -DULO1CAP2 PO; -FERR1TAB8 PO; -FINA5TAB2 PO; -FLAG500T PO; -FLEXERIL PO; -FLON0.054; -GABA800T PO; +HEPARIN 1,000 UNITS/ML 10ML VIAL (FOR RADIOLOGY& DIALYSIS ONLY) As Ordered; -HYDR-3716 PO; -HYDR10TAB PO; -HYDR25TA6 PO; +ISOVUE-300 61% 50ML VIAL (Q9967) As Ordered; -LABE10TAB PO; -LIDO5TD TD; -LISI-538 PO; -LOPR50TA PO; -MECL25TA2 OR; -MICR12.5 PO; +MIDAZOLAM INJ 2 MG/2 ML VIAL (J2250) As Ordered; -MORP15TASA PO; -NICO14PA EXT; -OXYC-403 PO; -OXYC-404 PO; -OXYC10TA12 PO; -OXYC1TAB23 PO; -OXYC20TA40 PO; -OXYC30TA72 PO; -OXYCO5TA PO; -PERC7.5T8 OR; -PERCOCET PO; -PRAVASTATIN PO; -PRIL20CA PO; -ROXI1TAB2 PO; -SENN1TAB10 PO; -SING10TA31 OR; -TRAZ10TA PO; -TRAZ50TA11 PO; -TRAZO50TA PO; -TYLE325T5 PO; -TYLENOL #3 OR; -TYLENOL #4 PO; -VENTOLIN ROTAHALER INH; -WARF-20 PO; -WARF-21 PO; -WARF-23 PO; -WARF10TA OR; -[UNRECOGNIZED DRUG - CODE] EX; -[UNRECOGNIZED DRUG - SUPPLY] EX; +fentaNYL 100 MCG/2 ML INJECTION (J3010) As Ordered; -nasal spray
== END | disposition home or self-care (01) ==
LOC: M IRPRO 09:40
DX: I70.212 Atherosclerosis of native arteries of extremities with intermittent claudication, left leg (principal); I70.201 Unspecified atherosclerosis of native arteries of extremities, right leg; Z89.611 Acquired absence of right leg above knee
CPT/HCPCS: 36200

== ENCOUNTER → 2017-08-10 | Outpatient (CLI) | payer MEDICARE, MEDICAID | LOC: M PAIN 14:15 | DX: G54.6 Phantom limb syndrome with pain (principal); I10 Essential (primary) hypertension; I73.9 Peripheral vascular disease, unspecified; Z79.01 Long term (current) use of anticoagulants; Z79.891 Long term (current) use of opiate analgesic; Z79.899 Other long term (current) drug therapy; Z87.891 Personal history of nicotine dependence | CPT/HCPCS: G0463 ==

== ENCOUNTER → 2017-08-19 | Outpatient (REF) | payer MEDICARE, MEDICAID ==
[2017-08-19 10:29] LABS: CHOLESTEROL LEVEL 155 MG/DL (<200); CHOLESTEROL RISK RATIO 3.604 (<5); HDL CHOLESTEROL 43 MG/DL (>40); LDL CHOLESTEROL 57.2 MG/DL (<100); NON-HDL-C 112 MG/DL; TRIGLYCERIDES LEVEL 274 MG/DL (<150)
== END ==
LOC: M SHH 09:07
DX: E78.00 Pure hypercholesterolemia, unspecified (principal); G46.4 Cerebellar stroke syndrome; H34.232 Retinal artery branch occlusion, left eye; Z79.01 Long term (current) use of anticoagulants
CPT/HCPCS: 80061

== ENCOUNTER → 2017-08-19 | Outpatient (REF) | payer MEDICARE, MEDICAID ==
[2017-08-19 10:02] LABS: INR 3.01; PROTHROMBIN TIME 32.6 SECONDS (12.4-14.5)
== END ==
LOC: M SHH 09:09
DX: G46.4 Cerebellar stroke syndrome (principal); Z79.01 Long term (current) use of anticoagulants; H34.232 Retinal artery branch occlusion, left eye

== ENCOUNTER 2017-09-12 12:23 | Emergency (ER) | payer MEDICARE, MEDICAID ==
[2017-09-12] MEDS: NS 1,000 ML IV (13:43)
[2017-09-12] MEDS: diphenhydrAMINE INJ 50MG/ML VIAL (J1200) IV (13:43)
[2017-09-12] MEDS: METOCLOPRAMIDE INJ 10MG/2ML VIAL (J2765) IV (13:45)
[2017-09-12 14:03] LABS: BASO # 0.1 10^3/uL (0.0-0.2); BASO % 0.7 % (0.0-1.0); EOS # 0.2 10^3/uL (0.0-0.50); EOS % 1.8 % (0.0-3.0); HEMATOCRIT 47.5 % (42.0-52.0); HEMOGLOBIN 15.8 g/dl (13.5-17.5); IMMATURE GRANULOCYTE % 0.6 % (0-3.0); LYMPH # 1.7 10^3/uL (1.5-4.5); LYMPH % 15.4 % (24.0-44.0); MEAN CORPUSCULAR HEMOGLOBIN 29.5 pg (27.0-33.0); MEAN CORPUSCULAR HGB CONC 33.3 g/dl (32.0-36.5); MEAN CORPUSCULAR VOLUME 88.6 fl (80.0-96.0); MONO # 0.8 10^3/uL (0.0-0.8); NEUTROPHILS # 8.1 10^3/uL (1.8-7.7); NEUTROPHILS % 74.5 % (36.0-66.0); PLATELET COUNT, AUTOMATED 219 10^3/uL (150-450); RED BLOOD COUNT 5.36 10^6/uL (4.30-6.10); WHITE BLOOD COUNT 10.8 10^3/uL (4.0-10.0)
[2017-09-12 14:33] LABS: INR 3.24; PROTHROMBIN TIME 34.6 SECONDS (12.4-14.5)
[2017-09-12 14:35] LABS: ALBUMIN 3.5 GM/DL (3.2-5.2); ALKALINE PHOSPHATASE 89 U/L (45-117); ALT/SGPT 22 U/L (12-78); ANION GAP 6 MEQ/L (8-16); AST/SGOT 18 U/L (7-37); BILIRUBIN,DIRECT < 0.1 MG/DL (0.0-0.2); BILIRUBIN,TOTAL 0.3 MG/DL (0.2-1.0); BLOOD UREA NITROGEN 14 MG/DL (7-18); CALCIUM LEVEL 8.4 MG/DL (8.5-10.1); CARBON DIOXIDE LEVEL 24 MEQ/L (21-32); CHLORIDE LEVEL 111 MEQ/L (98-107); CREATININE FOR GFR 1.02 MG/DL (0.70-1.30); GLOMERULAR FILTRATION RATE > 60.0 (>56); GLUCOSE, FASTING 99 MG/DL (70-100); SALICYLATE LEVEL 4.5 MG/DL (5.0-30.0); SODIUM LEVEL 141 MEQ/L (136-145); TOTAL PROTEIN 7.4 GM/DL (6.4-8.2)
[2017-09-12 14:41] LABS: ACETAMINOPHEN LEVEL < 2.0 UG/ML (10.0-30.0)
== END 2017-09-12 16:04 | disposition home or self-care (01) ==
LOC: M ED 12:23
DX: G62.9 Polyneuropathy, unspecified (principal); R51 Headache; G89.18 Other acute postprocedural pain; M79.604 Pain in right leg; I51.9 Heart disease, unspecified; I10 Essential (primary) hypertension; J44.9 Chronic obstructive pulmonary disease, unspecified; Z86.73 Personal history of transient ischemic attack (TIA), and cerebral infarction without residual deficits; Z95.1 Presence of aortocoronary bypass graft; Z87.891 Personal history of nicotine dependence; Z79.01 Long term (current) use of anticoagulants; Z79.899 Other long term (current) drug therapy
CPT/HCPCS: J1200

== ENCOUNTER → 2017-09-27 | Outpatient (CLI) | payer MEDICARE, MEDICAID | LOC: M PAIN 11:15 | DX: G54.6 Phantom limb syndrome with pain (principal); R10.30 Lower abdominal pain, unspecified; I10 Essential (primary) hypertension; F32.9 Major depressive disorder, single episode, unspecified; J44.9 Chronic obstructive pulmonary disease, unspecified; I25.10 Atherosclerotic heart disease of native coronary artery without angina pectoris; I73.9 Peripheral vascular disease, unspecified; Z79.01 Long term (current) use of anticoagulants; Z79.891 Long term (current) use of opiate analgesic; Z79.899 Other long term (current) drug therapy; Z95.1 Presence of aortocoronary bypass graft; Z87.891 Personal history of nicotine dependence | CPT/HCPCS: G0463 ==

== ENCOUNTER → 2017-11-09 | Outpatient (REF) | payer MEDICARE, MEDICAID ==
[2017-11-09 09:43] LABS: INR 3.15; PROTHROMBIN TIME 33.8 SECONDS (12.4-14.5)
== END ==
LOC: M LAB REF 09:02
DX: Z79.01 Long term (current) use of anticoagulants (principal); H34.232 Retinal artery branch occlusion, left eye
CPT/HCPCS: 85610

== ENCOUNTER → 2017-12-29 | Outpatient (CLI) | payer MEDICARE, MEDICAID | LOC: M PAIN 13:45 | DX: R10.31 Right lower quadrant pain (principal); G54.6 Phantom limb syndrome with pain; Z73.9 Problem related to life management difficulty, unspecified; I10 Essential (primary) hypertension; F32.9 Major depressive disorder, single episode, unspecified; J44.9 Chronic obstructive pulmonary disease, unspecified; Z87.891 Personal history of nicotine dependence; Z89.611 Acquired absence of right leg above knee; Z86.718 Personal history of other venous thrombosis and embolism; Z86.73 Personal history of transient ischemic attack (TIA), and cerebral infarction without residual deficits; Z98.62 Peripheral vascular angioplasty status; Z79.899 Other long term (current) drug therapy; Z90.49 Acquired absence of other specified parts of digestive tract; Z85.038 Personal history of other malignant neoplasm of large intestine; Z79.891 Long term (current) use of opiate analgesic; Z95.2 Presence of prosthetic heart valve | CPT/HCPCS: G0463 ==

== ENCOUNTER → 2018-01-06 | Outpatient (REF) | payer MEDICARE, MEDICAID ==
[2018-01-06 13:09] LABS: INR 1.43; PROTHROMBIN TIME 17.7 SECONDS (12.1-14.4)
== END ==
LOC: M LAB REF 12:26
DX: Z79.01 Long term (current) use of anticoagulants (principal)
CPT/HCPCS: 85610

== ENCOUNTER → 2018-01-31 | Outpatient (REF) | payer MEDICARE, MEDICAID ==
[2018-01-31 13:39] LABS: PROTHROMBIN TIME 34.3 SECONDS (12.1-14.4)
== END ==
LOC: M LAB REF 13:03
DX: Z79.01 Long term (current) use of anticoagulants (principal)
CPT/HCPCS: 85610

== ENCOUNTER → 2018-03-06 | Outpatient (CLI) | payer MEDICARE, MEDICAID | LOC: M PAIN 10:30 | DX: R10.31 Right lower quadrant pain (principal); M79.2 Neuralgia and neuritis, unspecified; I10 Essential (primary) hypertension; F32.9 Major depressive disorder, single episode, unspecified; I73.9 Peripheral vascular disease, unspecified; J44.9 Chronic obstructive pulmonary disease, unspecified; Z79.891 Long term (current) use of opiate analgesic; Z79.899 Other long term (current) drug therapy; Z87.891 Personal history of nicotine dependence; Z95.4 Presence of other heart-valve replacement; Z89.511 Acquired absence of right leg below knee | CPT/HCPCS: G0463 ==

== ENCOUNTER → 2018-03-08 | Outpatient (REF) | payer MEDICARE, MEDICAID | LOC: M LAB REF 17:24 | DX: L03.039 Cellulitis of unspecified toe (principal) | CPT/HCPCS: 87077; 87186 ==

== ENCOUNTER → 2018-03-16 | Outpatient (REF) | payer MEDICARE, MEDICAID ==
[2018-03-16 12:30] LABS: INR 2.57; PROTHROMBIN TIME 28.1 SECONDS (12.1-14.4)
== END ==
LOC: M LAB REF 11:55
DX: Z79.01 Long term (current) use of anticoagulants (principal)
CPT/HCPCS: 85610

== ENCOUNTER → 2018-03-22 | Outpatient (REF) | payer MEDICARE, MEDICAID | LOC: M LAB REF 15:31 | DX: L03.032 Cellulitis of left toe (principal) | CPT/HCPCS: 87186 ==

== ENCOUNTER 2018-04-04 16:26 | Emergency (ER) | payer MEDICARE, MEDICAID ==
[2018-04-04] MEDS: MORPHINE 4 MG/ML 1ML VIAL/SYRINGE (J2270) IV (18:25)
[2018-04-04] MEDS: NS 1,000 ML IV (18:25)
[2018-04-04 18:31] LABS: BASO # 0.1 10^3/uL (0.0-0.2); BASO % 0.7 % (0.0-1.0); EOS # 0.3 10^3/uL (0.0-0.50); EOS % 2.3 % (0.0-3.0); HEMATOCRIT 43.1 % (42.0-52.0); HEMOGLOBIN 14.4 g/dl (13.5-17.5); IMMATURE GRANULOCYTE % 0.6 % (0-3.0); LYMPH # 2.5 10^3/uL (1.5-4.5); MEAN CORPUSCULAR HEMOGLOBIN 31.2 pg (27.0-33.0); MEAN CORPUSCULAR HGB CONC 33.4 g/dl (32.0-36.5); MEAN CORPUSCULAR VOLUME 93.5 fl (80.0-96.0); MONO # 0.8 10^3/uL (0.0-0.8); MONO % 7.5 % (0.0-5.0); NEUTROPHILS # 7.3 10^3/uL (1.8-7.7); NEUTROPHILS % 65.9 % (36.0-66.0); PLATELET COUNT, AUTOMATED 223 10^3/uL (150-450); RED BLOOD COUNT 4.61 10^6/uL (4.30-6.10); RED CELL DISTRIBUTION WIDTH 13.8 % (11.5-14.5); WHITE BLOOD COUNT 11.1 10^3/uL (4.0-10.0)
[2018-04-04 18:41] LABS: INR 2.16; PROTHROMBIN TIME 24.5 SECONDS (12.1-14.4)
[2018-04-04 18:42] LABS: PARTIAL THROMBOPLASTIN TIME 41.5 SECONDS (25.4-37.6)
[2018-04-04 18:59] LABS: ALBUMIN 3.4 GM/DL (3.2-5.2); ALBUMIN/GLOBULIN RATIO 0.97 (1.00-1.93); ALKALINE PHOSPHATASE 72 U/L (45-117); ALT/SGPT 24 U/L (12-78); ANION GAP 4 MEQ/L (8-16); AST/SGOT 18 U/L (7-37); BILIRUBIN,DIRECT < 0.1 MG/DL (0.0-0.2); BILIRUBIN,TOTAL 0.2 MG/DL (0.2-1.0); BLOOD UREA NITROGEN 20 MG/DL (7-18); C REACTIVE PROTEIN QUANTITATIV 0.66 MG/DL (0.00-0.30); CALCIUM LEVEL 8.4 MG/DL (8.5-10.1); CARBON DIOXIDE LEVEL 28 MEQ/L (21-32); CHLORIDE LEVEL 109 MEQ/L (98-107); CREATININE FOR GFR 1.18 MG/DL (0.70-1.30); GLOMERULAR FILTRATION RATE > 60.0 (>56); GLUCOSE, FASTING 86 MG/DL (70-100); POTASSIUM SERUM 4.2 MEQ/L (3.5-5.1); SODIUM LEVEL 141 MEQ/L (136-145); TOTAL PROTEIN 6.9 GM/DL (6.4-8.2)
[2018-04-04 19:20] LABS: ERYTHROCYTE SEDIMENTATION RATE 9 mm/hr (0-20)
[2018-04-04] MEDS: CLINDAMYCIN 150 MG CAP PO (19:45)
== END 2018-04-04 19:59 | disposition home or self-care (01) ==
LOC: M ED 16:26
DX: L03.032 Cellulitis of left toe (principal); I73.9 Peripheral vascular disease, unspecified; I10 Essential (primary) hypertension; E78.5 Hyperlipidemia, unspecified
CPT/HCPCS: J2270

== ENCOUNTER → 2018-05-26 | Outpatient (REF) | payer MEDICARE, MEDICAID ==
[2018-05-26 10:11] LABS: INR 2.29; PROTHROMBIN TIME 25.7 SECONDS (12.1-14.4)
== END ==
LOC: M SHH 09:32
DX: Z79.01 Long term (current) use of anticoagulants (principal)
CPT/HCPCS: 85610

== ENCOUNTER → 2018-06-28 | Outpatient (REF) | payer MEDICARE, MEDICAID ==
[~2018-06-28] MED LIST changes: +/AUGM875TA OR; +ALBU17IN INH; +ALBUTEROL INHALER INH; +ALPR0.25 PO; +AMIT25TA2 OR; +AMLO10TA5 PO; +AMLO5TAB6 PO; +ASPI81TA2 PO; +ATOR1TAB21 PO; +BACITAB PO; +CARV3.12 PO; +CHLO125TA PO; +CIPR-249 PO; +CIPR-250 PO; +CIPR500T89 PO; +CLEO300C2 PO; +CLON-412 PO; +CLON0.5T8 PO; +COUM10TA PO; +COUM1TAB14 PO; +COUM1TAB17 PO; +COUM7.5T PO; +DULO1CAP2 PO; +FERR1TAB8 PO; +FINA5TAB2 PO; +FLAG500T PO; +FLEXERIL PO; +FLON0.054; +GABA800T4 PO; -HEPARIN 1,000 UNITS/ML 10ML VIAL (FOR RADIOLOGY& DIALYSIS ONLY) As Ordered; +HYDR-3716 PO; +HYDR10TAB PO; +HYDR25TA6 PO; -ISOVUE-300 61% 50ML VIAL (Q9967) As Ordered; +LABE10TAB PO; +LIDO5TD TD; +LISI-538 PO; +LOPR50TA PO; +MECL25TA2 OR; +MICR12.5 PO; -MIDAZOLAM INJ 2 MG/2 ML VIAL (J2250) As Ordered; +MORP15TASA PO; +NICO14PA EXT; +NORCOTAB PO; +OXYC-403 PO; +OXYC-404 PO; +OXYC10TA12 PO; +OXYC1TAB23 PO; +OXYC20TA40 PO; +OXYC30TA72 PO; +OXYCO5TA PO; +PERC7.5T8 OR; +PERCOCET PO; +PRAVASTATIN PO; +PRIL20CA PO; +ROXI1TAB2 PO; +SENN1TAB10 PO; +SING10TA31 OR; +TRAZ-160 PO; +TRAZ10TA PO; +TRAZO50TA PO; +TYLE325T5 PO; +TYLENOL #3 OR; +TYLENOL #4 PO; +VENTOLIN ROTAHALER INH; +WARF-20 PO; +WARF-21 PO; +WARF-23 PO; +WARF10TA OR; +[UNRECOGNIZED DRUG - CODE] EX; +[UNRECOGNIZED DRUG - SUPPLY] EX; -fentaNYL 100 MCG/2 ML INJECTION (J3010) As Ordered; +nasal spray
[2018-06-28 10:35] LABS: INR 1.67
== END ==
LOC: M SHH 10:10
PROVIDERS: ATTEND Family Medicine
DX: Z79.01 Long term (current) use of anticoagulants (principal); Z51.81 Encounter for therapeutic drug level monitoring

== ENCOUNTER → 2018-07-17 | Outpatient (REF) | payer MEDICARE, MEDICAID ==
[2018-07-17 11:30] LABS: INR 2.39; PROTHROMBIN TIME 26.6 SECONDS (12.1-14.4)
== END ==
LOC: M SHH 10:32
PROVIDERS: ATTEND Family Medicine
DX: Z79.01 Long term (current) use of anticoagulants (principal)

== ENCOUNTER → 2018-08-23 | Outpatient (CLI) | payer MEDICARE, MEDICAID ==
--- NOTE | 2018-08-23 11:21 | REP ---
LEFT LOWER EXTREMITY DOPPLER ARTERIAL ULTRASOUND: 08/23/2018. Clinical history: Atherosclerotic peripheral vascular disease. Comparison: Bilateral exam 05/19/2017. Findings: The left brachial artery measures 140 with dorsalis pedis 82 and RENT CONTROL OFFICE MANAGER 90. This gives TAINA 0.6. The EIA velocity 68.3 cm/S monophasic. LEON is not visualized due to body habitus, consideration. Left lower extremity: PSV: Phasicity: CCA: 527.5 cm/S monophasic Profunda: 108.3 cm/S monophasic SFA proximal: 57.8 cm/S monophasic SFA mid: Occluded. SFA distal: 53.1 cm/S monophasic/reversed flow. Popliteal: 15.4 cm/S monophasic A few proximal: 11.1 cm/S monophasic Tibioperoneal trunk: 40.9 cm/S monophasic RENT CONTROL OFFICE MANAGER proximal: 12.2 cm/S monophasic RENT CONTROL OFFICE MANAGER distal: 5.7 cm/S monophasic/reversed flow. RENT CONTROL OFFICE MANAGER distal 5.3 cm/S monophasic. Examination demonstrates diffuse severe atherosclerotic disease in the left lower extremity. There is very severe stenosis in the common femoral artery with the proximal SFA patent until occluded in the mid SFA. The distal SFA shows reversal of flow and multiple vascular channels likely from the geniculate arteries are present. The RENT CONTROL OFFICE MANAGER distally shows reversal of flow near the ankle and thereafter antegrade flow due to collaterals. Electronically Signed by Charli Castro MD 08/23/2018 11:13 A
== END ==
LOC: M RAD 09:27
PROVIDERS: ATTEND Surgery Vascular Surgery
DX: I70.212 Atherosclerosis of native arteries of extremities with intermittent claudication, left leg (principal)

== ENCOUNTER → 2018-08-31 | Outpatient (CLI) | payer MEDICARE, MEDICAID ==
--- NOTE | 2018-09-02 00:44 | ECWPNPC ---
PATIENT NAME: NICOLASA BURNETT : 1960 GENDER: MALE VISIT DATE: 08/31/2018 DISCHARGE DATE: 08/31/18 1428 VISIT LOCKED DATE TIME: PHYSICIAN: RICKI CHOI RESOURCE: RICKI CHOI REASON FOR APPOINTMENT 1. R LEG PAIN HISTORY OF PRESENT ILLNESS FALL RISK SCREENING: SCREENING : NO FALLS IN THE PAST YEAR. PATIENT IS A 58 YEAR OLD MALE WITH ABOVE RIGHT KNEE AMPUTATION IN 2016 AND HAS PHANTOM LIMB PAIN. HE HAS STARTED EXPEREINCING PAIN IN LEFT LEG AND HAS HAD FURTHER IMAGING AND HAS APPT WITH NEUROLOGIST.TODAY HE STATES HIS PAIN IS 8/10 AND HAS HAS INCREASEDIN RECENT WEEKS. HE WOULD LIKE TO DISCUSS ADJUSTING HIS PAIN MEDICATION.PATIENT SAYS HE FEELS HIS RIGHT/EG/STUMP FEELS COLDER CPMPARED TO THE LEFT LEG AND HE HAS A " LASER TEMP MONITOR" THAT HE WILL BE GIVING TO HIS SURGEON. CURRENT MEDICATIONS TAKING CARVEDILOL 6.25 MG TABLET ORALLY BID TAKING DULOXETINE HCL 30 MG CAPSULE DELAYED RELEASE PARTICLES 1 CAPSULE ORALLY TWICE A DAY TAKING ATORVASTATIN CALCIUM 20 MG TABLET ORALLY DAILY TAKING CLONIDINE HCL 0.1 MG TABLET ORALLY THREE TIMES DAILY TAKING WARFARIN SODIUM 4 MG TABLET 2 TABS ORALLY DAILY TAKING AMLODIPINE BESYLATE 5 MG TABLET ORALLY DAILY TAKING FINASTERIDE 5 MG TABLET ORALLY DAILY TAKING GABAPENTIN 800 MG TABLET 1 CAP ORALLY THREE TIMES DAILY TAKING OXYCODONE-ACETAMINOPHEN 5-325 MG TABLET 1 TAB ORALLY EVERY 6 HOURS PRN PAIN MDD=4 NOT-TAKING ALPRAZOLAM 0.25 MG TABLET 1 TABLET ORALLY AT BEDTIME NEEDED NOT-TAKING TRAZODONE HCL 50 MG TABLET 3 TABS ORALLY BEFORE BEDTIME NOT-TAKING OXYCODONE HCL 30 MG TABLET ORALLY EVERY 12 HOURS NOT-TAKING TRAMADOL HCL 50 MG TABLET ORALLY EVERY 6 HOURS NEEDED NOT-TAKING SULFAMETHOXAZOLE-TMP DS 160-800 MG TABLET ORALLY BID FOR 10 DAYS MEDICATION LIST REVIEWED AND RECONCILED WITH THE PATIENT PAST MEDICAL HISTORY DOUBLE BYPASS / HX PVD AND CAD DIVERTICULITIS R BKA PANCREATITIS PVD RIGHT CVA HTN BLOOD CLOT X 2 IN RIGT LEG DEPRESSION COPD ALLERGIES N.K.D.A. SURGICAL HISTORY VALVE REPLACEMENT ( AORTIC VALVE), ANURYSM SURGERY 2016 COLON RESECTION FOR CANCER 2015 R BKA DECEMBER 2016 ANGIOPLASTY AMNA LOWER EXTREMITIES JAN 2016 R AKA JAN 2017 ANGIOGRAM 08/2018 FAMILY HISTORY FATHER: 65 YRS, DIAGNOSED WITH DIABETES, CANCER MOTHER: ALIVE 79 YRS, OTHER PATERNAL GRAND FATHER: CANCER MATERNAL GRAND FATHER: HYPERTENSION MATERNAL GRAND MOTHER: HYPERTENSION 3 SISTER(S) - HEALTHY. SOCIAL HISTORY GENERAL: TOBACCO USE ARE YOU A:FORMER SMOKER HOW LONG HAS IT BEEN SINCE YOU LAST SMOKED?1-5 YEARS LATEX QUESTIONNAIRE LATEX ALLERGY : HAVE YOU EVER DEVELOPED ANY TYPE OF REACTION AFTER HANDLING LATEX PRODUCTS SUCH RUBBER GLOVES, CONDOMS, DIAPHRAGMS, BALLOONS, SOCKS, OR UNDERWEAR?NO LATEX ALLERGY : HAVE YOU EVER DEVELOPED ANY TYPE OF REACTION DURING OR AFTER DENTAL APPOINTMENT, VAGINAL/RECTAL EXAMINATION, SURGICAL PROCEDURE, OR ANY OTHER EXPOSURE?NO LATEX RISK : HAVE YOU EVER HAD ANY DIFFICULTY BREATHING OR HIVES AFTER EATING OR HANDLING ANY FRUITS, OR VEGETABLES; SUCH KIWI, BANANAS, STONE FRUITS, OR CHESTNUTSNO LATEX RISK : DO YOU HAVE A PREVIOUS PERSONAL HISTORY OF MORE THAN NINE SURGERIES, SPINA BIFIDA, OR REPEATED CATHERTIZATIONS? NO LATEX RISK : ARE YOU FREQUENTLY EXPOSED TO LATEX PRODUCTS IN YOUR OCCUPATION?NO DATE ASKED : 08/31/2018 ALCOHOL SCREENING DID YOU HAVE A DRINK CONTAINING ALCOHOL IN THE PAST YEAR?NO POINTS0 INTERPRETATIONNEGATIVE RECREATIONAL DRUG USE DRUG USE?NO CAFFEINE CAFFEINE USE?YES 1-2 CUPS PER DAY SABIANISM [id number] NONE LANGUAGE LANGUAGES SPOKEN:IRAQI EDUCATION LEVEL OF EDUCATION:HIGH SCHOOL LEARNING BARRIERS / SPECIAL NEEDS HEARING IMPAIRED?NO VISION IMPAIRED?YES :CORRECTIVE LENSES SPECIAL DEVICES?YES :CANE, WALKER, WHEELCHAIR DIET: NO ADDED SALT. EXERCISE: WHEEL CHAIR BOUND. OTHERS AT HOME: MOTHER. PAIN CLINIC PFS, CLERGY, PUBLIC HEALTH REFERRALS PFS REFERRAL NEEDED?NO CLERGY REFERRAL NEEDED?NO PUBLIC HEALTH REFERRAL NEEDED?NO WAS THE PROVIDER NOTIFIED OF ANY PERTINENT INFO?YES HAS THE PATIENT BEEN EDUCATED REGARDING HIS/HER PLAN OF CARE?YES HAS THE PATIENT BEEN EDUCATED REGARDING PAIN, THE RISK FOR PAIN, THE IMPORTANCE OF EFFECTIVE PAIN MANAGEMENT, AND THE PAIN ASSESSMENT PROCESS?YES ADVANCE DIRECTIVE ADVANCE DIRECTIVE DISCUSSED WITH PATIENT:YES HCP - ANIL GIANNI BURNETT (SISTER) REVIEWED WITH PATIENT 08/31/18 1320 JS. HOSPITALIZATION/MAJOR DIAGNOSTIC PROCEDURE CVA 12/2015 SURGERY RELATED REVIEW OF SYSTEMS REVIEWED BY: PROVIDER: LINDA Lujan CONSTITUTIONAL: ANY CHANGE IN YOUR MEDICAL CONDITION? YES, BLOCKAGE FOUND IN LEFT LEG . CHILLS NO . FEVER NO . INFECTION: DO YOU HAVE NEW INFECTIONS? NO . DO YOU HAVE HISTORY OF MRSA? NO . MUSCULOSKELETAL: ANY NEW PATTERNS OF PAIN OR NUMBNESS? YES, NEW LEFT LEG PAIN, STATES HE HAD AN ANGIOGRAM LAST WEEK, HAS A BLOCKAGE . GASTROENTEROLOGY: ANY NEW CHANGE IN BOWEL CONTROL? YES, STATES PAIN IN RIGHT STUMP WHEN BEARING DOWN TO HAVE A BOWEL MOVEMENT . GENITOURINARY: ANY NEW CHANGE IN BLADDER CONTROL? NO . IS THERE A CHANCE YOU COULD BE ? NO . HEMATOLOGY/LYMPH: DO YOU TAKE ANY BLOOD THINNERS? (FOR EXAMPLE- COUMADIN, PLAVIX, AGGRENOX, PLATEL, PRADAXA, OR XARELTO) YES, COUMADIN . WHEN WAS YOUR LAST DOSE? DATE: 08/30/18TIME: 1700 . NEUROLOGY: HAVE YOU FALLEN IN THE PAST 12 MONTHS? NO . ANY NEW EXTREMITY NUMBNESS OR WEAKNESS? YES, STATES WEAKNESS TO RIGHT STUMP, HAVING DIFFICULTY WITH PROSTHETIC. ALSO HAVING A LOT OF PHANTOM PAIN TO RIGHT STUMP . CARDIOLOGY: DO YOU HAVE A PACEMAKER OR DEFIBRILLATOR? NO . RESPIRATORY: HAVE YOU BEEN SICK IN THE PAST WEEK? NO . FEVER NO . FLU LIKE SYMPTOMS? NO . COUGH NO . INTEGUMENTARY: DO YOU HAVE ANY RASHES OR OPEN SORES? NO . ALLERGIC/IMMUNO: ARE YOU ALLERGIC TO IV DYE? NO . ANY NEW ALLERGIES? NO . PSYCHIATRIC: DO YOU HAVE THOUGHTS OF HURTING YOURSELF OR SOMEONE ELSE? NO . ARE YOU ABUSED, NEGLECTED, OR IN AN UNSAFE ENVIRONMENT? NO . ENDOCRINOLOGY: ARE YOU DIABETIC? NO . OTHER: DO YOU NEED ANY PRESCRIPTIONS? NO . IF YES, PLEASE LIST: ____ . ANY NEW PROBLEMS WITH YOUR MEDICATIONS? NO . WHEN DID YOU LAST EAT? ____ . WHEN DID YOU LAST DRINK? ____ . WHAT DID YOU LAST DRINK? ____ . NAME OF PERSON DRIVING YOU HOME? ____ . DO YOU HAVE ANY OTHER QUESTIONS OR CONCERNS NO . VITAL SIGNS WT 212 LBS, HT 74", BMI 27.22 INDEX, BP 165/82 MM HG, HR 74 /MIN, RR 16 /MIN, TEMP 96.7 F, OXYGEN SAT % 93%, SAFE IN ENV? (Y/N) YES, NA INITIALS AW 1314, REVIEWED BY: JS. EXAMINATION GENERAL EXAMINATION: GENERAL APPEARANCE:NO ACUTE DISTRESS, WELL NOURISHED AND HYDRATED. PSYCHAPPROPRIATE MOOD AND AFFECT . LUNGS:CLEAR TO AUSCULTATION BILATERALLY, NO WHEEZES, RHONCHI, RALES. HEART:NO MURMURS, REGULAR RATE AND RHYTHM. MUSCULOSKELETAL: RIGHT LEG: STUMP HAS HEALED WITH SCARS TO BASE OF STUMP, + SWELLING , NO ERYTHEMA. GOOD COLOR.. 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 I HAVE ADVISED HIM I HAVE SENT A FURTHER RX TO HIS PHARMACY TO PROVIDE EXTRA PERCOCET TO COVER THE INCREASE IN DOSAGE.ISTOP REGISTRY REVIEWED AND DEMONSTRATES COMPLLIANCE. (REF [id number] ) BRINGS IN MEDICATIONS WHICH IS APPROPRIATE FOR WHAT WAS DISPENSED. RECENT URINE TOXICOLOGY REVIEWED. NO UNAUTHORIZED MEDICATIONS. NO ILLICIT SUBSTANCES AND PRESCRIBED MEDICATIONS WERE PRESENT. URINE TOX TODAY, RISKS AND BENEFITS OF NARCOTIC/OPIOD MEDICATIONS WERE REVIEWED WITH PATIENT - THIS INCLUDES BUT IS NOT LIMITED TO RISK OF DEPENDANCE/DEVELOPMENT OF ADDICTION, MOOD DISTURBANCE AND DEPRESSION, OSTEOPOROSIS, HORMONAL AND LABIDAL CHANGES, RESPIRATORY DEPRESSION AND . PATIENT IS ADVISED NOT TO DRIVE OR DRINK ALCOHOL WHILE ON THESE MEDICATIONS`. PROCEDURE CODES FA211 ESTABILISHED PATIENT [facility] CHARGE DISPOSITION & COMMUNICATION FOLLOW UP 6 MONTHS ELECTRONICALLY SIGNED BY CHAPITO NG ON 09/01/2018 AT 01:39 PM EDT DISCLAIMER : THIS IS A VISIT SUMMARY EXTRACTED FROM THE [employer] CHART. IT IS NOT A COPY OF THE [employer] PROGRESS NOTE. MTDD
== END ==
LOC: M PAIN 13:00
PROVIDERS: ATTEND Nurse Practitioner Family
DX: G54.6 Phantom limb syndrome with pain (principal); I73.9 Peripheral vascular disease, unspecified; L97.813 Non-pressure chronic ulcer of other part of right lower leg with necrosis of muscle; I10 Essential (primary) hypertension; J44.9 Chronic obstructive pulmonary disease, unspecified; Z86.59 Personal history of other mental and behavioral disorders; Z89.611 Acquired absence of right leg above knee; Z86.79 Personal history of other diseases of the circulatory system; Z87.891 Personal history of nicotine dependence; Z79.01 Long term (current) use of anticoagulants; Z79.891 Long term (current) use of opiate analgesic; Z79.899 Other long term (current) drug therapy

== ENCOUNTER → 2018-10-03 | Outpatient (REF) | payer MEDICARE, MEDICAID ==
[~2018-10-03] MED LIST changes: +HYDR-2773 PO; +HYDR-3715 PO; -HYDR10TAB PO; +NICO14DI20 EXT; -NICO14PA EXT; -NORCOTAB PO
[2018-10-03 11:46] LABS: INR 3.11; PROTHROMBIN TIME 32.7 SECONDS (12.1-14.4)
== END ==
LOC: M LAB REF 11:23
PROVIDERS: ATTEND Family Medicine
DX: Z79.01 Long term (current) use of anticoagulants (principal)

== ENCOUNTER → 2018-11-03 | Outpatient (REF) | payer MEDICARE, MEDICAID ==
[2018-11-03 11:28] LABS: INR 1.31; PROTHROMBIN TIME 16.5 SECONDS (12.1-14.4)
== END ==
LOC: M LAB REF 10:28
PROVIDERS: ATTEND Family Medicine
DX: Z79.01 Long term (current) use of anticoagulants (principal)

== ENCOUNTER → 2018-12-05 | Outpatient (REF) | payer MEDICARE, MEDICAID ==
[~2018-12-05] MED LIST changes: -TRAZ-160 PO; +TRAZ-252 PO; +TRAZ1TAB10 PO; -TRAZO50TA PO
[2018-12-05 12:51] LABS: INR 2.77; PROTHROMBIN TIME 29.1 SECONDS (11.8-14.0)
== END ==
LOC: M SHH 12:08 → M LAB REF 12:08
PROVIDERS: ATTEND Family Medicine
DX: Z79.01 Long term (current) use of anticoagulants (principal)

== ENCOUNTER → 2019-01-03 | Outpatient (REF) | payer MEDICARE, MEDICAID ==
[~2019-01-03] MED LIST changes: -DULO1CAP2 PO; +DULO1CAP5 PO
[2019-01-03 13:18] LABS: INR 2.84; PROTHROMBIN TIME 29.7 SECONDS (11.8-14.0)
== END ==
LOC: M LAB REF 12:35
PROVIDERS: ATTEND Nurse Practitioner Family
DX: Z79.01 Long term (current) use of anticoagulants (principal)

== ENCOUNTER → 2019-02-08 | Outpatient (REF) | payer MEDICARE, MEDICAID ==
[2019-02-08 13:52] LABS: INR 2.09; PROTHROMBIN TIME 23.3 SECONDS (11.8-14.0)
== END ==
LOC: M LAB REF 13:09
PROVIDERS: ATTEND Nurse Practitioner Family
DX: Z79.01 Long term (current) use of anticoagulants (principal)

== ENCOUNTER → 2019-02-27 | Outpatient (CLI) | payer MEDICARE, MEDICAID ==
--- NOTE | 2019-03-14 01:29 | ECWPNPC ---
PATIENT NAME: NICOLASA BURNETT : 1960 GENDER: MALE VISIT DATE: 02/27/2019 DISCHARGE DATE: 02/27/19 1429 VISIT LOCKED DATE TIME: PHYSICIAN: GIANNI DOS SANTOS RESOURCE: GIANNI DOS SANTOS REASON FOR APPOINTMENT 1. R LEG- PT NEEDS ASSIST CARRYING PAPERWORK FROM [facility]. HISTORY OF PRESENT ILLNESS HISTORY OF PRESENT ILLNESS: HERE FOR F/U OF CHRONIC RIGHT LEG PHANTOM PAIN.RATING PAIN VAS 8/10.FINDS CURRENT CHRONIC PAIN MEDICATION INEFFECTIVE.REPORTING INTERMITTENT SHARP AND ELECTRICAL PAIN DESPITE GABAPENTIN AND CYMBALTA.DISCUSSED TRIAL OF LYRICA AND DCS.DISCUSSED CBD PRODUCTS.HE WAS INFORMED THAT HE CANT USE MARIJUANA CONCURRENTLY WITH NARCOTIC PAIN MEDICATION. PAIN THE PATIENT DESCRIBES THE PAIN... FALL RISK SCREENING: SCREENING :NO FALLS REPORTED IN THE LAST YEAR CURRENT MEDICATIONS TAKING CARVEDILOL 6.25 MG TABLET ORALLY BID TAKING DULOXETINE HCL 30 MG CAPSULE DELAYED RELEASE PARTICLES 1 CAPSULE ORALLY TWICE A DAY TAKING ATORVASTATIN CALCIUM 20 MG TABLET ORALLY DAILY TAKING CLONIDINE HCL 0.1 MG TABLET ORALLY THREE TIMES DAILY TAKING WARFARIN SODIUM 4 MG TABLET 2 TABS ORALLY DAILY TAKING AMLODIPINE BESYLATE 5 MG TABLET ORALLY DAILY TAKING FINASTERIDE 5 MG TABLET ORALLY DAILY TAKING GABAPENTIN 800 MG TABLET 1 CAP ORALLY THREE TIMES DAILY TAKING PERCOCET 5-325 MG TABLET 1.5 TABLET NEEDED ORALLY EVERY 8 HOURS,MDD 3 NOT-TAKING OXYCODONE-ACETAMINOPHEN 5-325 MG TABLET 1 TAB ORALLY EVERY 6 HOURS PRN PAIN MDD=4 NOT-TAKING ALPRAZOLAM 0.25 MG TABLET 1 TABLET ORALLY AT BEDTIME NEEDED NOT-TAKING TRAZODONE HCL 50 MG TABLET 3 TABS ORALLY BEFORE BEDTIME NOT-TAKING OXYCODONE HCL 30 MG TABLET ORALLY EVERY 12 HOURS NOT-TAKING TRAMADOL HCL 50 MG TABLET ORALLY EVERY 6 HOURS NEEDED NOT-TAKING SULFAMETHOXAZOLE-TMP DS 160-800 MG TABLET ORALLY BID FOR 10 DAYS MEDICATION LIST REVIEWED AND RECONCILED WITH THE PATIENT PAST MEDICAL HISTORY DOUBLE BYPASS / HX PVD AND CAD DIVERTICULITIS R BKA PANCREATITIS PVD RIGHT CVA HTN BLOOD CLOT X 2 IN RIGT LEG DEPRESSION COPD ALLERGIES N.K.D.A. SURGICAL HISTORY VALVE REPLACEMENT ( AORTIC VALVE), ANURYSM SURGERY 2016 COLON RESECTION FOR CANCER 2015 R BKA DECEMBER 2016 ANGIOPLASTY AMNA LOWER EXTREMITIES JAN 2016 R AKA JAN 2017 ANGIOGRAM 08/2018 FAMILY HISTORY FATHER: 65 YRS, DIAGNOSED WITH DIABETES, OTHER MALIGNANT NEOPLASM OF UNSPECIFIED SITE MOTHER: ALIVE 79 YRS, OTHER SPECIFIED CONDITIONS INFLUENCING HEALTH STATUS PATERNAL GRAND FATHER: OTHER MALIGNANT NEOPLASM OF UNSPECIFIED SITE MATERNAL GRAND FATHER: HYPERTENSION MATERNAL GRAND MOTHER: HYPERTENSION 3 SISTER(S) - HEALTHY. SOCIAL HISTORY GENERAL: TOBACCO USE ARE YOU A:FORMER SMOKER HOW LONG HAS IT BEEN SINCE YOU LAST SMOKED?1-5 YEARS OTHERS AT HOME: MOTHER. EDUCATION LEVEL OF EDUCATION:HIGH SCHOOL DIET: NO ADDED SALT. LANGUAGE LANGUAGES SPOKEN:TAJIK RECREATIONAL DRUG USE DRUG USE?NO EXERCISE: WHEEL CHAIR BOUND. LEARNING BARRIERS / SPECIAL NEEDS HEARING IMPAIRED?NO VISION IMPAIRED?YES :CORRECTIVE LENSES SPECIAL DEVICES?YES :CANE, WALKER, WHEELCHAIR PAIN CLINIC PFS, CLERGY, PUBLIC HEALTH REFERRALS PFS REFERRAL NEEDED?NO CLERGY REFERRAL NEEDED?NO PUBLIC HEALTH REFERRAL NEEDED?NO WAS THE PROVIDER NOTIFIED OF ANY PERTINENT INFO?YES HAS THE PATIENT BEEN EDUCATED REGARDING HIS/HER PLAN OF CARE?YES HAS THE PATIENT BEEN EDUCATED REGARDING PAIN, THE RISK FOR PAIN, THE IMPORTANCE OF EFFECTIVE PAIN MANAGEMENT, AND THE PAIN ASSESSMENT PROCESS?YES LATEX QUESTIONNAIRE LATEX ALLERGY : HAVE YOU EVER DEVELOPED ANY TYPE OF REACTION AFTER HANDLING LATEX PRODUCTS SUCH RUBBER GLOVES, CONDOMS, DIAPHRAGMS, BALLOONS, SOCKS, OR UNDERWEAR?NO LATEX ALLERGY : HAVE YOU EVER DEVELOPED ANY TYPE OF REACTION DURING OR AFTER DENTAL APPOINTMENT, VAGINAL/RECTAL EXAMINATION, SURGICAL PROCEDURE, OR ANY OTHER EXPOSURE?NO DATE ASKED : 08/31/2018 LATEX RISK : HAVE YOU EVER HAD ANY DIFFICULTY BREATHING OR HIVES AFTER EATING OR HANDLING ANY FRUITS, OR VEGETABLES; SUCH KIWI, BANANAS, STONE FRUITS, OR CHESTNUTSNO LATEX RISK : DO YOU HAVE A PREVIOUS PERSONAL HISTORY OF MORE THAN NINE SURGERIES, SPINA BIFIDA, OR REPEATED CATHERIZATIONS? NO LATEX RISK : ARE YOU FREQUENTLY EXPOSED TO LATEX PRODUCTS IN YOUR OCCUPATION?NO CAFFEINE CAFFEINE USE?YES 1-2 CUPS PER DAY ADVANCE DIRECTIVE ADVANCE DIRECTIVE DISCUSSED WITH PATIENT:YES HCP - ANILANI BURNETT (SISTER) CHRISTIAN [id number] NONE ALCOHOL SCREENING DID YOU HAVE A DRINK CONTAINING ALCOHOL IN THE PAST YEAR?NO POINTS0 INTERPRETATIONNEGATIVE REVIEWED WITH PATIENT 08/31/18 1320 JSREVIEWED WITH PT 02/27/19 1302 NLJ. HOSPITALIZATION/MAJOR DIAGNOSTIC PROCEDURE CVA 12/2015 SURGERY RELATED REVIEW OF SYSTEMS REVIEWED BY: PROVIDER: GIANNI DOS SANTOS WAGE AND SALARY ADMINISTRATOR . CONSTITUTIONAL: ANY CHANGE IN YOUR MEDICAL CONDITION? NO . CHILLS NO . FEVER NO . INFECTION: DO YOU HAVE NEW INFECTIONS? 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 DO YOU HAVE HISTORY OF MRSA? NO . MUSCULOSKELETAL: ANY NEW PATTERNS OF PAIN OR NUMBNESS? YES- INCREASED PAIN- STATES INCREASED PAIN WHEN HE TRIES TO PUT ON HIS SOCK AND PROSTHETIC ON, STATES HE FEELS AN "ELECTRICAL PAIN" IN HIS STUMP . GASTROENTEROLOGY: ANY NEW CHANGE IN BOWEL CONTROL? YES- URGENCY . GENITOURINARY: ANY NEW CHANGE IN BLADDER CONTROL? YES- URGENCY . IS THERE A CHANCE YOU COULD BE ? NO . HEMATOLOGY/LYMPH: DO YOU TAKE ANY BLOOD THINNERS? (FOR EXAMPLE- COUMADIN, PLAVIX, AGGRENOX, PLATEL, PRADAXA, OR XARELTO) YES- COUMADIN . WHEN WAS YOUR LAST DOSE? DATE:02/26/19 TIME: 1700 . NEUROLOGY: HAVE YOU FALLEN IN THE PAST 12 MONTHS? NO . ANY NEW EXTREMITY NUMBNESS OR WEAKNESS? YES- STATES HE FEELS NUMBNESS IN BILATERAL HANDS NOW, STATES HE FEELS PAIN IN HIS RIGHT SHOULDER . CARDIOLOGY: DO YOU HAVE A PACEMAKER OR DEFIBRILLATOR? NO . RESPIRATORY: HAVE YOU BEEN SICK IN THE PAST WEEK? NO . FEVER NO . FLU LIKE SYMPTOMS? NO . COUGH NO . INTEGUMENTARY: DO YOU HAVE ANY RASHES OR OPEN SORES? YES- HAS OPEN SORES ON ARMS AND LEGS, STATES HE SEES HIS PCP FOR SORES, STATES THEY ARE CHRONIC . ALLERGIC/IMMUNO: ARE YOU ALLERGIC TO IV DYE? NO . ANY NEW ALLERGIES? NO . PSYCHIATRIC: DO YOU HAVE THOUGHTS OF HURTING YOURSELF OR SOMEONE ELSE? NO . ARE YOU ABUSED, NEGLECTED, OR IN AN UNSAFE ENVIRONMENT? NO . ENDOCRINOLOGY: ARE YOU DIABETIC? NO . OTHER: DO YOU NEED ANY PRESCRIPTIONS? NO . IF YES, PLEASE LIST: ____ . ANY NEW PROBLEMS WITH YOUR MEDICATIONS? NO . WHEN DID YOU LAST EAT? ____ . WHEN DID YOU LAST DRINK? ____ . WHAT DID YOU LAST DRINK? ____ . NAME OF PERSON DRIVING YOU HOME? ____ . DO YOU HAVE ANY OTHER QUESTIONS OR CONCERNS YES- STATES THAT HE HAS BEEN HAVING INCREASED PAIN IN HIS STUMP . VITAL SIGNS WT 220 LBS, HT 74", BMI 28.24 INDEX, BP 132/84 MM HG, HR 83 /MIN, RR 16 /MIN, TEMP 97.3 F, OXYGEN SAT % 97%, SAFE IN ENV? (Y/N) YES, NA INITIALS AW 1315, REVIEWED BY: CATRACHITA. EXAMINATION GENERAL EXAMINATION: GENERAL AWAKE,ALERT ,PLEAASANT . PSYCH AFFECT NORMAL . LUNGS: LUNG CASTRO ARE CLEAR TO AUSCULTATION BILATERALLY. GOOD MOVEMENT OF AIR . HEART: S1, S2 IN A REGULAR RATE AND SLIGHT IRREGULAR RHYTHM NOTED.. 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 BRINGS IN MEDICATIONS WHICH IS APPROPRIATE FOR WHAT WAS DISPENSED. RECENT URINE TOXICOLOGY REVIEWED. NO UNAUTHORIZED MEDICATIONS. NO ILLICIT SUBSTANCES AND PRESCRIBED MEDICATIONS WERE PRESENT. , RISKS AND BENEFITS OF NARCOTIC/OPIOD MEDICATIONS WERE REVIEWED WITH PATIENT - THIS INCLUDES BUT IS NOT LIMITED TO RISK OF DEPENDANCE/DEVELOPMENT OF ADDICTION, MOOD DISTURBANCE AND DEPRESSION, OSTEOPOROSIS, HORMONAL AND LABIDAL CHANGES, RESPIRATORY DEPRESSION AND . PATIENT IS ADVISED NOT TO DRIVE OR DRINK ALCOHOL WHILE ON THESE MEDICATIONS. PREVENTIVE MEDICINE PAIN CLINIC TEACHING: MEDICATIONS LYRICA DRUG INFORMATION SHEETS PRINTED AND REVIEWED WITH PATIENT 02/27/19 1414 RHONDA. PROCEDURE CODES FA211 ESTABILISHED PATIENT [facility] CHARGE DISPOSITION & COMMUNICATION FOLLOW UP 2 MONTHS ELECTRONICALLY SIGNED BY CHAPITO HESS ON 03/12/2019 AT 08:57 AM EDT DISCLAIMER : THIS IS A VISIT SUMMARY EXTRACTED FROM THE [employer] CHART. IT IS NOT A COPY OF THE [employer] PROGRESS NOTE. MTDD
== END ==
LOC: M PAIN 13:00
PROVIDERS: ATTEND Nurse Practitioner Family
DX: G54.6 Phantom limb syndrome with pain (principal); G89.29 Other chronic pain; I10 Essential (primary) hypertension; Z86.59 Personal history of other mental and behavioral disorders; J44.9 Chronic obstructive pulmonary disease, unspecified; Z87.891 Personal history of nicotine dependence; Z79.899 Other long term (current) drug therapy

== ENCOUNTER → 2019-03-27 | Outpatient (CLI) | payer MEDICARE, MEDICAID ==
--- NOTE | 2019-03-27 16:17 | REP ---
Left lower extremity arterial Doppler ultrasound: History: Atherosclerosis of the [place] arteries. Intermittent claudication left leg. Findings: Ankle brachial index is 0.6 on the left. The left mid superficial femoral artery is occluded. There is heavy plaquing throughout the left lower extremity arteries. Monophasic flow waveforms are observed throughout as well. Flow was reversed in the distal posterior tibial artery. Velocity chart left lower extremity arteries: Left CF A 512 cm/S Profunda 97 Proximal SFA 60 Mid SFA occluded Distal SFA 46 Popliteal 14 Proximal AT A 15 Tibioperoneal trunk 18 Proximal URGENT CARE PHYSICIAN 18 Distal URGENT CARE PHYSICIAN reversed 15 Distal AT A 11 Electronically Signed by Ricky Rendon MD 03/27/2019 04:09 P
== END ==
LOC: M RAD 10:02
PROVIDERS: ATTEND Physician Assistant
DX: I70.212 Atherosclerosis of native arteries of extremities with intermittent claudication, left leg (principal)

== ENCOUNTER → 2019-04-04 | Outpatient (REF) | payer MEDICARE, MEDICAID ==
[2019-04-04 13:27] LABS: INR 1.75; PROTHROMBIN TIME 20.2 SECONDS (11.8-14.0)
== END ==
LOC: M SHH 12:47
PROVIDERS: ATTEND Nurse Practitioner Family
DX: Z79.01 Long term (current) use of anticoagulants (principal)

== ENCOUNTER → 2019-04-19 | Outpatient (CLI) | payer MEDICARE, MEDICAID ==
[~2019-04-19] MED LIST changes: +ISOVUE-370 76% 100ML VIAL (Q9967) As Ordered ONE
--- NOTE | 2019-04-19 10:51 | REP ---
Left lower extremity venous Doppler ultrasound: History: Left lower extremity vein mapping. Possible fem-pop bypass. Findings: The deep veins are anechoic and fully compressible from the groin to the popliteal fossa on two-dimensional scanning. Color flow and spectral Doppler interrogation are unremarkable. There is no evidence of deep vein thrombosis. There is a Stokes's cyst in the posterior popliteal soft tissues measuring 4.2 cm in greatest diameter. The greater saphenous and lesser saphenous veins were evaluated. These are patent. The greater saphenous vein measures 7 mm in AP dimension proximally, 5 mm in AP dimension at midthigh level, and 3 mm in AP dimension at the knee. In the upper calf, midcalf, and lower calf locations these dimensions are four, three, and 2 mm respectively. The lesser saphenous vein is seen and measured as well measuring four, two, and 1 mm in AP dimension respectively in the upper, mid and lower calf region. Impression: No evidence of DVT. Stokes's cyst. Greater and lesser saphenous veins are patent and measured as above. Electronically Signed by Ricky Rendon MD 04/19/2019 12:56 P
--- NOTE | 2019-04-19 13:26 | REP ---
CT angiography abdominal aorta and the bilateral run off arteries with IV contrast: History: Atherosclerosis of the [place] arteries. Rest pain. Intermittent claudication left leg. 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 Comparison study January 18, 2017. CT contrast dose: 100 mL of intravenous Isovue 370. CT findings: Multiple small renal cysts are again observed. There is left colonic diverticulosis. The patient is status post right hemicolectomy. The left gastric artery appears to take a direct aortic origin. The celiac and SMA origins are otherwise unremarkable. There are three arteries to the left kidney which do not appear stenotic. There is high-grade stenosis just beyond the origin of the right renal artery. The origin of the inferior mesenteric artery is patent and non-stenotic. There is circumferential abdominal aortic plaquing and some diffuse narrowing is seen. Mild ectasia of the infrarenal abdominal aorta is seen, 2.8 cm in greatest AP dimension. The right common iliac artery stent is occluded from its origin and does not visibly reconstitute. There are post surgical changes in the right groin soft tissues. There is a occluded stent visible in the proximal thigh on the right and the patient is status post [id number] amputation. On the left, there is a patent common to external iliac stent in place. There is a high-grade weblike stenosis in the common femoral artery on the left. Just below this, the superficial femoral artery is occluded . Profunda is patent. There is reconstitution of flow in the distal SFA in the level of the adductor canal. Popliteal is of good caliber. Tibioperoneal trunk shows calcification and mild narrowing. Three-vessel calf runoff is noted on the left. Impression: Status post [id number] amputation on the right. Right common iliac artery stent is occluded. Left SFA occlusion with reconstituted flow. Findings are similar to the prior study. Electronically Signed by Ricky Rendon MD 04/19/2019 01:47 P
== END ==
LOC: M RAD 08:28
PROVIDERS: ATTEND Surgery Vascular Surgery
DX: M79.662 Pain in left lower leg (principal); I70.222 Atherosclerosis of native arteries of extremities with rest pain, left leg; I70.212 Atherosclerosis of native arteries of extremities with intermittent claudication, left leg; Z89.611 Acquired absence of right leg above knee
CPT/HCPCS: 75635; 93971; Q9967

== ENCOUNTER → 2019-04-30 | Outpatient (CLI) | payer MEDICARE, MEDICAID ==
[~2019-04-30] MED LIST changes: +CLON0.5T2 PO; -CLON0.5T8 PO; +DOXY100C PO; +IBUP200C25 PO; -ISOVUE-370 76% 100ML VIAL (Q9967) As Ordered ONE; +VENTAER INH
== END ==
LOC: M PAIN 11:00
PROVIDERS: ATTEND Nurse Practitioner Family
DX: G54.6 Phantom limb syndrome with pain (principal); Z53.8 Procedure and treatment not carried out for other reasons

== ENCOUNTER → 2019-05-03 | Outpatient (REF) | payer MEDICARE, MEDICAID ==
[~2019-05-03] MED LIST changes: -CLON0.5T2 PO; +CLON0.5T8 PO
[2019-05-03 17:11] LABS: INR 3.94; PROTHROMBIN TIME 38.7 SECONDS (11.8-14.0)
== END ==
LOC: M LAB REF 16:00
PROVIDERS: ATTEND Family Medicine
DX: Z79.01 Long term (current) use of anticoagulants (principal)

== ENCOUNTER → 2019-05-16 | Outpatient (REF) | payer MEDICARE, MEDICAID ==
[~2019-05-16] MED LIST changes: +CARV12.5 PO; +CLON0.5T2 PO; -CLON0.5T8 PO; +HYDR50TA PO
[2019-05-16 13:41] LABS: BASO # 0.1 10^3/uL (0.0-0.2); BASO % 0.8 % (0.0-1.0); EOS # 0.2 10^3/uL (0.0-0.5); EOS % 1.7 % (0.0-3.0); HEMATOCRIT 49.2 % (42.0-52.0); HEMOGLOBIN 16.1 g/dl (13.5-17.5); LYMPH % 17.1 % (24.0-44.0); MEAN CORPUSCULAR HEMOGLOBIN 30.8 pg (27.0-33.0); MEAN CORPUSCULAR HGB CONC 32.7 g/dl (32.0-36.5); MEAN CORPUSCULAR VOLUME 94.1 fl (80.0-96.0); MONO # 1.1 10^3/uL (0.0-0.8); MONO % 9.2 % (0.0-5.0); NEUTROPHILS # 8.3 10^3/uL (1.5-8.5); NEUTROPHILS % 70.6 % (36.0-66.0); PLATELET COUNT, AUTOMATED 267 10^3/uL (150-450); RED BLOOD COUNT 5.23 10^6/uL (4.30-6.10); WHITE BLOOD COUNT 11.7 10^3/uL (4.0-10.0)
[2019-05-16 14:12] LABS: HEMOGLOBIN A1c 5.9 %
[2019-05-16 14:24] LABS: ALBUMIN 3.5 GM/DL (3.2-5.2); BILIRUBIN,TOTAL 0.2 MG/DL (0.2-1.0); CALCIUM LEVEL 9.3 MG/DL (8.8-10.2); CHOLESTEROL RISK RATIO 3.326 (<5); CREATININE FOR GFR 1.38 MG/DL (0.70-1.30); POTASSIUM SERUM 5.2 MEQ/L (3.5-5.1); TOTAL PROTEIN 7.6 GM/DL (6.4-8.2)
[2019-05-16 15:06] LABS: INR 1.55; PROTHROMBIN TIME 18.3 SECONDS (11.8-14.0)
== END ==
LOC: M SFHCADAM 09:51
PROVIDERS: ATTEND Family Medicine
DX: I73.9 Peripheral vascular disease, unspecified (principal); Z85.038 Personal history of other malignant neoplasm of large intestine; Z89.611 Acquired absence of right leg above knee; Z79.01 Long term (current) use of anticoagulants; Z79.899 Other long term (current) drug therapy
CPT/HCPCS: 80053; 80061; 83036; 85025; 85610; G0463

== ENCOUNTER → 2019-05-21 | Outpatient (CLI) | payer MEDICARE, MEDICAID ==
[~2019-05-21] MED LIST changes: -CARV12.5 PO; -HYDR50TA PO
--- NOTE | 2019-05-21 12:51 | REP ---
Chest x-ray: Two views. History: Preoperative testing. Comparison study: August 04, 2016. Findings: The patient is status post prior median sternotomy. Aortic valve replacement is seen. The heart is not enlarged. The lungs are well inflated and otherwise clear. Pleural angles are sharp. There are mild degenerative spurs in the thoracic spine. Some vascular calcifications noted. Impression: Status post aortic valve replacement. Otherwise no acute disease. Electronically Signed by Ricky Rendon MD 05/21/2019 12:42 P
== END ==
LOC: M RAD 11:53
PROVIDERS: ATTEND Anesthesiology
DX: Z01.818 Encounter for other preprocedural examination (principal)

== ENCOUNTER 2019-05-23 11:30 | Inpatient (IN) | payer MEDICARE, MEDICAID ==
--- NOTE | 2019-05-21 21:16 | HPE ---
DATE OF SCHEDULED ADMISSION: 05/23/2019 This is a preoperative history and physical for surgery scheduled for 05/23/2019. CHIEF COMPLAINT: "My circulation is really bad." HISTORY OF THE PRESENT ILLNESS: Mr. Marino is a very pleasant 59-year-old patient with profound peripheral vascular disease, status post right above-knee amputation due to ischemia, now with severe left lower extremity vascular disease and rest pain. I have reviewed the patient's arteriogram from Dr. King a year and a half ago. On that imaging, the patient had occlusion of his entire right iliac system, including previously placed stents. He had limited cross-over arterial flow from the left hypogastric to collaterals that feed the right lower extremity. This is extremely limited flow for the right side. The patient has atrophy of his muscle and cannot wear his prosthetic, and this is definitely consistent with what I see on his imaging. On the left side, the patient's iliac artery stents are patent, but he has near occlusion of the distal external iliac artery for approximately 2 cm with reconstitution and good flow through the common femoral artery. The superficial femoral artery occludes near its origin and reconstitutes above the knee. Since that imaging was done so long ago, I obtained a CTA of the abdomen and pelvis to make sure that we would still be able to treat the patient with an above-knee bypass versus a below-knee bypass. He has good tibial runoff on the arteriogram, and CTA confirmed similar findings with near occlusion of the external iliac artery distally, patent common femoral artery, good profunda runoff with collaterals to the above knee popliteal artery, which is patent. Therefore, our plan will be for a left external iliac common femoral endarterectomy with patch angioplasty and a left femoral to above knee popliteal bypass with greater saphenous vein conduit in situ. His greater saphenous vein on vein mapping measures 7 mm at the junction, 5 mm in the mid thigh, and 3 mm at the knee. This should be suitable conduit for bypass. The patient sees Dr. Mercado, and we requested cardiac clearance and stress test, which was done. The patient and I had a long discussion about the procedure and went over risks, benefits and alternatives, as well as expected perioperative care and outcomes, and he was agreeable to proceed. Informed consent was obtained. MEDICATION LIST: - albuterol sulfate two puffs every 4 hours as needed - alprazolam 0.25 mg one tablet nightly as needed - amitriptyline HCL 50 mg one tablet by mouth daily - Norvasc 5 mg daily - atorvastatin 20 mg daily - clonidine 0.1 mg three times a day - Cozaar 50 mg daily - cyclobenzaprine 10 mg daily - finasteride 5 mg daily - gabapentin 800 mg three times a day - labetalol 100 mg twice a day - Lexapro 10 mg daily - loratadine 10 mg daily - Coumadin 4 mg daily ALLERGIES: No known drug allergies. PAST MEDICAL HISTORY: Sigmoid diverticulitis, peripheral vascular disease, mitral regurgitation, stroke, bicuspid aortic valve, chronic obstructive pulmonary disease (COPD), depression. SURGICAL HISTORY: Deviated septum repair, right knee surgery, right below-knee amputation converted to a right above knee amputation with Dr. King, cardiac catheterizations and cardiac stents, cardiac valve replacement with aneurysm repair, right lower extremity arteriograms, colon resection. FAMILY HISTORY: Father is due to cancer, mother has no current problems. SOCIAL HISTORY: Patient is a former smoker with a 38 pack-year history and quit in 2016. He denies alcohol use, but he does regularly use marijuana. REVIEW OF SYSTEMS: CONSTITUTIONAL: He denies fevers, chills, weight gain and weight loss. EYES: No new vision changes. EARS, NOSE, MOUTH AND THROAT: Denies hearing loss, denies congestion, and denies dysphagia. CARDIOVASCULAR: Denies chest pain and palpitations. RESPIRATORY: Reports shortness of breath on occasion, but denies cough and hemoptysis. GASTROINTESTINAL (GI): Denies abdominal pain, constipation, diarrhea, nausea or vomiting. MUSCULOSKELETAL: Reports claudication, trouble walking, and weakness of the left leg with rest pain and is status post right above-knee amputation (AKA). SKIN: Denies skin cancer, rashes, or wounds. NEUROLOGIC: Reports a history of stroke, but denies current focal deficits, denies headaches or seizures. PSYCHIATRIC: Reports depression but denies anxiety. ENDOCRINE: Denies diabetes, hyper or hypothyroidism. HEMATOLOGY: Reports easy bruising but denies anemia. PHYSICAL EXAMINATION: Patient is afebrile and vital signs are stable. CONSTITUTIONAL: The patient appears to be medically stable. No signs of apparent distress are present. HEAD AND FACE: Normal on inspection. EAR, NOSE, MOUTH AND THROAT: Tympanic membranes are intact. Poor dentition. External nose within normal limits. NECK: Supple, no carotid bruits present. RESPIRATORY: No wheezing. Slightly coarse breath sounds bilaterally. CARDIOVASCULAR: Regular rate and rhythm. ABDOMEN: Bowel sounds are positive. Abdomen is soft and nontender. LYMPH: No palpable or visible lymphadenopathy. MUSCULOSKELETAL: The patient's gait was not observed. He is status post right above-knee amputation and is in a wheelchair. He does not wear a prosthetic and has significant atrophy of the muscle of the right lower leg. His left lower extremity has monophasic flow at the dorsalis pedis (DP) and posterior tibial (PT). His femoral pulse on the left is barely palpable. He does also have a monophasic signal at the popliteal artery behind the knee. SKIN: No rashes or lesions. NEUROLOGIC: Alert and oriented times three, moves all extremities equally, no focal deficits noted. PSYCHIATRIC: Pleasant and cooperative with exam. RADIOLOGIC IMAGING: The patient's arteriogram imaging from Dr. King and his CTA and vein mapping were reviewed. Please see history of the present illness for relevant interpretation. ASSESSMENT AND PLAN: Mr. Marino is a very pleasant 59-year-old gentleman with a history of right above-knee amputation, right lower extremity ischemia, and progressive atherosclerosis of the little traverse vessels of the left lower extremity with progression to rest pain. 1. Plan for left distal external iliac artery and common femoral artery endarterectomy with patch angioplasty. 2. Plan for left femoral to above knee popliteal artery bypass with in situ saphenous vein. 3. Appreciate cardiac clearance from Dr. Mercado. 4. Continue statin daily. Patient is on Coumadin, and therefore, is not concurrently on aspirin, but if antiplatelet medication could be tolerated, we would appreciate an 81 mg aspirin a day. We appreciate the opportunity to participate in the care of this patient.
[~2019-05-23] VITALS: Ht 188 cm; Wt 102.1 kg
[~2019-05-23 11:30] MED LIST changes: +LR 1,000 ML IV ONE; +ceFAZolin SOD 2 GM in IV 1 EA IV ONE
[2019-05-23 12:24] LABS: HEMATOCRIT 48.4 % (42.0-52.0); HEMOGLOBIN 15.9 g/dl (13.5-17.5); MEAN CORPUSCULAR HEMOGLOBIN 30.6 pg (27.0-33.0); MEAN CORPUSCULAR HGB CONC 32.9 g/dl (32.0-36.5); MEAN CORPUSCULAR VOLUME 93.1 fl (80.0-96.0); PLATELET COUNT, AUTOMATED 225 10^3/uL (150-450); WHITE BLOOD COUNT 9.5 10^3/uL (4.0-10.0)
[2019-05-23 12:37] LABS: INR 1.04; PROTHROMBIN TIME 13.3 SECONDS (11.8-14.0)
[2019-05-23 12:38] LABS: PARTIAL THROMBOPLASTIN TIME 28.9 SECONDS (25.0-38.4)
[2019-05-23] MEDS ORDERED: dexameTHASONE 4 MG/ML 1ML VIAL (J1100) As Ordered ONE (13:39)
[2019-05-23] MEDS ORDERED: fentaNYL 100 MCG/2 ML INJECTION (J3010) As Ordered ONE ×3 (13:39→22:53)
[2019-05-23] MEDS ORDERED: LIDOCAINE 2% INJ 100 MG/5 ML SDV (FOR ANES.) As Ordered ONE (13:39)
[2019-05-23] MEDS ORDERED: ROCURONIUM BROMIDE 50 MG/5 ML VIAL As Ordered ONE ×3 (13:39→20:17)
[2019-05-23] MEDS ORDERED: ONDANSETRON 4MG/2ML VIAL (J2405) As Ordered ONE ×2 (13:39→22:53)
[2019-05-23] MEDS ORDERED: MIDAZOLAM INJ 2 MG/2 ML VIAL (J2250) As Ordered ONE (13:39)
[2019-05-23] MEDS ORDERED: SUGAMMADEX SODIUM 500 MG/5 ML VIAL (BRIDION) As Ordered ONE (13:39)
[2019-05-23] MEDS ORDERED: PROPOFOL 200 MG/20 ML VIAL As Ordered ONE (13:39)
[2019-05-23] MEDS ORDERED: LABETALOL HCL 100 MG/20 ML VIAL ONE (14:19)
[2019-05-23] MEDS ORDERED: BUPIVACAINE/EPIN 0.5% 30 ML VIAL As Ordered ONE (14:19)
[2019-05-23] MEDS ORDERED: BUPIVACAINE/EPIN 0.5% 30 ML VIAL ONE (14:19)
[2019-05-23] MEDS ORDERED: THROMBIN SOLN 20,000 UNITS KIT As Ordered ONE (14:20)
[2019-05-23] MEDS ORDERED: HEPARIN SOD (PORCINE) 5000 UNITS/ML VIAL As Ordered ONE ×4 (14:20→20:25)
[2019-05-23] MEDS ORDERED: ISOVUE-300 61% 50ML VIAL (Q9967) As Ordered ONE (14:21)
[2019-05-23 15:25] LABS: CREATININE FOR GFR 1.41 MG/DL (0.70-1.30); GLOMERULAR FILTRATION RATE 54.6 (>49); POTASSIUM SERUM 4.3 MEQ/L (3.5-5.1)
[2019-05-23 15:26] LABS: CALCIUM LEVEL 8.9 MG/DL (8.8-10.2)
[2019-05-23] MEDS ORDERED: HYDROmorphone HCL 2 MG/ML 1ML VIAL (J1170) As Ordered ONE (15:26)
[2019-05-23] MEDS ORDERED: ceFAZolin 2 GM/D5W 50 ML IV BAG (J0690 PER 500MG) As Ordered ONE (18:13)
[2019-05-23] MEDS ORDERED: PHENYLephrine HCL 500 MCG/5 ML (100MCG/ML) SYRINGE (J2370) As Ordered ONE (19:21)
[2019-05-23] MEDS: fentaNYL 100 MCG/2 ML INJECTION (J3010) IV PRN ×4 (22:55→23:10)
[2019-05-23] MEDS ORDERED: PERCOCET 5MG/325MG TAB PO PRN (23:00)
[2019-05-23] MEDS ORDERED: HYDROMORPHONE HCL 0.5 MG/ 0.5 ML SYRINGE (J1170 PER 1) As Ordered ONE (23:14)
[2019-05-23] MEDS: HYDROMORPHONE HCL 0.5 MG/ 0.5 ML SYRINGE (J1170 PER 1) IV PRN ×2 (23:14→23:32)
[2019-05-23] MEDS ORDERED: oxyCODONE 5MG TAB PO PRN (23:15)
[2019-05-23] MEDS ORDERED: ONDANSETRON 4MG/2ML VIAL (J2405) IV PRN (23:15)
[2019-05-23] MEDS ORDERED: LR 1,000 ML IV SCH (23:15)
--- NOTE | 2019-05-23 23:15 | ROOPDOC ---
[facility] Report Of Operation Report of Operation DATE OF PROCEDURE: 05/23/19 PREPROCEDURE DIAGNOSES: Atherosclerosis of the [place] arteries with claudication and nonhealing ulcer of the toe. POSTPROCEDURE DIAGNOSES: Same. PROCEDURE: 1. Left distal external iliac artery and common femoral artery endarterectomy with Accu seal patch angioplasty 2. Left femoral to above-knee popliteal bypass with in situ vein 3. Left lower extremity arteriograms SURGEON: Bijan Amaya MD ANESTHESIA: Gen. anesthesia and local anesthesia. INDICATION FOR PROCEDURE: Mr. Marino is a very pleasant 59-year-old gentleman with severe peripheral vascular disease status post multiple failed revascularizations with Dr. King on the right lower extremity in the past and eventually resulting in above-knee amputation. The patient subsequently has had some reluctance of following up with vascular surgery regarding the peripheral vascular disease and symptoms on the left lower extremity. Eventually, we were able to convince him to discuss options for revascularization on the left. A CTA and vein mapping were obtained, and Dr. King's previous arteriograms were reviewed, and a decision was made for open endarterectomy of the left distal external iliac artery and common femoral artery with patch angioplasty, and a left femoral to above-knee popliteal bypass. Risks benefits and alternatives were extensively explained to the patient and his and he was agreeable to proceed. Informed consent was obtained. INTERPRETATION: 1. The in situ vein branches were identified with contrast injection under fluoroscopy and then clipped. Completion venogram revealed all branches were effectively clipped. 2. Completion left lower extremity arteriogram showed rapid flow through the common femoral artery into the bypass and the profunda with good filling of the chronic collaterals from the profunda and rapid flow through the bypass into the popliteal artery with outflow into the tibial system. The patient does have significant tibial disease, but there is a dramatic improvement in flow after endarterectomy and bypass. REPORT OF OPERATION: The patient was brought to the operating room in stable condition. General anesthesia and antibiotics were administered without complication.His left groin and lower extremity was prepped and draped in a sterile fashion. A timeout was performed. An oblique incision was made over the left inguinal ligament and carried down through the subcutaneous tissue Bovie cautery. Extensive venous complexes were noted suture ligated and divided as needed. We continued her dissection down to the femoral sheath which was opened longitudinally. There was a lot of scar tissue around the artery from previous access sites from previous arteriograms and closure devices. After careful dissection we isolated the circumflex vessels which were controlled with Vesseloops. We continued her dissection under the inguinal ligament through the distal external iliac artery until we were above the shelf plaque that was easily palpable within the artery. We then continue her dissection distally to the profunda in the superficial femoral artery which were both secured with Vesseloops. 5000 units of heparin was given and allowed to circulate. The Vesseloops were secured and we clamped the common femoral artery. An arteriotomy was made and extended with the pot scissors along the length of the artery above the level of the plaque. We then spent quite a bit of time carefully removing all of the plaque and loose intima from the artery. The profunda was also endarterectomized. This plaque was extremely heavy, growing into the artery, so great care was taken not to damage the artery during the endarterectomy. There was a lot of hematoma within the plaque as well. The plaque was near occlusive in 4 areas. After the endarterectomy was completed, we irrigated with heparinized saline and Accu seal patch was fashion to fit the arteriotomy and anastomosis with a running 5-0 Prolene suture. Before the final sutures are placed we flushed inflow and outflow arteries and then irrigated with heparinized saline. The final sutures are placed in flow was restored. Good hemostasis was noted. Next, we identified the greater saphenous vein. There was 11 branches coming off of the greater saphenous vein near the junction with the common femoral vein. We took some time to dissected all of these branches out type and often clipped them. Once we had the vein skeletonized, a clamp was placed on the common femoral vein and a 5-0 Prolene suture was used underneath t he clamp and a mattress fashion to gain control of the vein. We then placed a bulldog clamp on the greater saphenous vein and greater saphenous vein was excised off of the common femoral vein at the junction with an 11 blade. We then removed the clamp and oversewed the edge of the common femoral vein and good hemostasis was noted. We turned the distal greater saphenous vein inside out and all valves were directly lysed with the pot scissor. We then found to suitable place on the distal common femoral artery near the profunda 4 and anastomosis. We resecured clamps and Vesseloops on the femoral. Prior to this, additional heparin was given. ACTs were checked during the case and maintained over 200 and additional heparin given throughout. An arteriotomy was made and the proximal greater saphenous vein was anastomosis to the artery and and decide fashion with running 6-0 Prolene suture. Before the final sutures are placed we flushed inflow and outflow artery and flow was restored. With the increased pressure the arterial flow, one of our ties became dislodged from the saphenous vein. We placed bulldogs proximally and distally and oversewed this area carefully with a 6-0 Prolene suture. Good hemostasis was achieved. Next, we made at longitudinal incision over the distal medial thigh and carried this down to the subcutaneous tissue Bovie cautery we continue her dissection down through the subcutaneous tissue posterior to the muscle through the fascia until the axonal popliteal artery was encountered. This was skeletonized proximally and distally and Vesseloops were placed. 3 branches were noted posteriorly and Vesseloops were placed her on these as well. They are likely collaterals and we would like to preserve them. We then had to dissected fairly deep posteriorly in the subcutaneous tissue with and or incision to identify the saphenous vein. Once identified, we've skeletonized along the length of our incision and suture ligated and distally. We then passed a valvulotome with heparinized saline through the vein to the proximal greater saphenous vein distal to her anastomosis. The valves were lysed 4 times, and we still had very low flow through the end of the vein. I suspected large branches were present. We injected contrast under fluoroscopy and identified 3 branches which were clipped and ligated. We then injected contrast through the valvulotome under fluoroscopy a second time and 3 additional branches were noted. All branches were sufficiently clipped and ligated through small incisions on the thigh over the greater saphenous vein. Final arteriogram through the valvulotome through the saphenous vein showed that all branches had been effectively clipped. We had a strong pulse in the entire vein and it was suitable for bypass. We gave additional heparin throughout the case to maintain anticoagulation. The Vesseloops on the patella artery were secured and an arteriotomy was made. The vein was spatulated distally and then anastomosis and in and decide fashion with 6-0 Prolene suture. Before the final sutures are placed, we flushed the inflow and outflow artery and the flow through the vein. The anastomosis was irrigated with heparinized saline in the final sutures are placed. Flow was restored through the artery and the bypass. Following this, there was a strong pulse in t he popliteal artery. A final arteriogram with a 21-gauge butterfly needle was performed through the common femoral vein and also an additional tibial image was taken with the butterfly needle at the distal bypass. Please see above for interpretation. We irrigated with copious amounts of saline. The small incisions over the saphenous vein were closed in 2 layers. The deep layer closed with 2-0 Vicryl suture and superficial layer closed with 3-0 Vicryl suture. The skin was closed with darrion. The thigh incision was closed in 3 layers of 2-0 Vicryl sutures in the deep dermal layer was approximated with 3-0 Vicryl suture and skin was closed with darrion. At the groin, the deep tissues were approximated with interrupted 2-0 Vicryl suture. The fascial layers were closed in 3 layers of 2-0 Vicryl suture. The deep dermal layer was approximated with interrupted 3- 0 Vicryl sutures. The skin was closed with skin darrion. All incisions were clean and dried and sterile dressings were applied. The patient was then allowed to awaken from anesthesia was taken to recovery in stable condition. ESTIMATED BLOOD LOSS: Approximately mL. COMPLICATIONS: None. SPECIMENS: Left femoral plaque sent for pathology DRAINS: None Plan: The patient will be admitted for analgesia, wound care status post bypass for lower extremity, PT OT, and medical management. Okay to remove Chang in the morning. Okay for out of bed as tolerated with assistance. Patient may need rehabilitation at discharge. BIJAN AMAYA MD May 23, 2019 23:15
[2019-05-23] MEDS ORDERED: DESFLURANE 240 ML INHALANT As Ordered ONE (23:17)
[2019-05-23] MEDS: diazePAM 5 MG TAB PO SCH (23:21)
--- NOTE | 2019-05-23 23:26 | HPEPDOC ---
[facility] Medical History & Physical Date of Admission May 23, 2019 Date of Service: May 23, 2019 Primary Care Physician: Jhonatan Spears MD Attending Physician: Jhonatan Spears MD History and Physical TIME OF SERVICE: 11:50 PM CHIEF COMPLAINT: Postoperative care HISTORY OF PRESENT ILLNESS: This is a 68-year-old male that underwent left lower extremity femoral endarterectomy and femoropopliteal bypass performed by by today. Per Dr. Amaya the patient tolerated the procedure well and is off the vent. The time of evaluation, the patient reported having a little bit of pain in his right arm and left lower leg, but otherwise had no concerns. REVIEW OF SYSTEMS: 12 point review of systems negative except as listed in HPI PAST MEDICAL/ SURGICAL HISTORY: Chronic CAD, status post placement of multiple stents / double bypass Peripheral vascular disease that is post multiple revascularizations culminating in right [id number] amputation Mitral valve regurgitation. Bicuspid aortic valve status post placement of prosthetic aortic valve Sigmoid diverticulitis. History of right-sided CVA COPD Chronic hypertension Depression Remote history of iron deficiency History of alcoholic pancreatitis Status post partial colectomy for BRAF V600E pos, MLH-1 neg & PMS-2 neg adenocarcinoma of the colon History of PE SOCIAL HISTORY: Former tobacco smoker ? Uses marijuana FAMILY HISTORY: Cancer ALLERGIES: Please see below. HOME MEDICATIONS: Please see below. PHYSICAL EXAMINATION: VITAL SIGNS: Please see below. GEN: well nourished / well developed/ INTEGUMENT: not flushed/ not jaundice / multiple postoperative sites at the left lower legs are wrapped in clean and dry dressings HEENT: normocephalic / atramatic / /mucus membranes moist and pink / sclera anicteric CVS: RRR/NMRG/ / radial and dorsalis pedis pulses at the left difficult to palp ate but his extremities are warm and well-perfused LUNGS: lungs are clear to auscultation bilaterally on room air MSK: Status post right AKA NEURO: CN 2-12 are grossly intact / speech is not dysarthric PSYCH: alert and oriented to person place and time/ able to understand and follow all commands LABORATORY DATA: See below. ASSESSMENT: Mr. Marino is a 59-year-old with past medical history of chronic CAD acquiring double bypass, severe PAD requiring ight AKA and multiple vascular procedures, right CVA, bioprosthetic aortic valve, COPD, and depression who underwent lower extremity femoral endarterectomy and femoropopliteal bypass today. PLAN: 1. Severe PAD Plan: Pain management, per / resume aspirin and statin 2. Chronic CAD / double bypass Plan: start statin / no ASA bc he is on warfarin 3. Bicuspid aortic valve status post placement of prosthetic aortic valve Plan: Resume warfarin / follow-up INR in the morning 4 .History of right-sided CVA Plan: start statin / no ASA bc he is on warfarin 5 . Stable COPD Plan: Resume albuterol 6. Chronic hypertension. Plan: Resume amlodipine, clonidine, trazodone and carvedilol Depression / POLINA? Plan: Resume duloxetine Alprazolam, clonazepam No need for DVT prophylaxis because his warfarin. Disposition Will likely need more than 2 midnight stay Vital Signs Vital Signs Date Time Temp Pulse Resp B/P (MAP) Pulse Ox O2 Delivery O2 Flow Rate FiO2 05/23/19 23:15 79 18 213/85 (127) 94 Non-Rebreather 12 05/23/19 23:10 97.0 Laboratory Data Labs 24H Laboratory Tests 2 05/23/19 12:12: Nucleated Red Blood Cells % (auto) 0.0, Prothrombin Time 13.3, Prothromb Time International Ratio 1.04, Activated Partial Thromboplast Time 28.9, Anion Gap 6L, Glomerular Filtration Rate 54.6, Calcium Level 8.9 05/23/19 19:11: POC pH (Misc Panel) 7.270L, POC Base Excess (Misc Panel) -5.0L, POC Saturated Percent O2 (Misc) 92L, POC pO2 (Misc Panel) 74.0L, POC pCO2 (Misc Panel) 47.8H, POC HCO3 (Misc Panel) 22.0, POC Glucose (Misc Panel) 129H, POC Sodium (Misc Panel) 136, POC Potassium (Misc Panel) 5.3H, POC Total CO2 (Misc Panel) 23.0, POC Ionized Calcium (Misc Panel) 4.7, POC Hemoglobin (Calculated)(Misc) 13.6, POC Hematocrit (Misc Panel) 40.0 05/23/19 19:34: Kaolin Activated Coagulation Time 175H 05/23/19 20:29: Kaolin Activated Coagulation Time 202H 05/23/19 21:08: POC pH (Misc Panel) 7.354, POC Base Excess (Misc Panel) -5.0L, POC Saturated Percent O2 (Misc) 98, POC pO2 (Misc Panel) 115.0H, POC pCO2 (Misc Panel) 36.7, POC HCO3 (Misc Panel) 20.5L, POC Glucose (Misc Panel) 125H, POC Sodium (Misc Panel) 137, POC Potassium (Misc Panel) 5.2H, POC Total CO2 (Misc Panel) 22.0L, POC Ionized Calcium (Misc Panel) 4.5, POC Hemoglobin (Calculated)(Misc) 12.2, POC Hematocrit (Misc Panel) 36.0L 05/23/19 21:24: Kaolin Activated Coagulation Time 219H CBC/BMP Laboratory Tests 05/23/19 12:12 Home Medications Scheduled Amlodipine Besylate (Amlodipine Besylate) 5 Mg Tab, 5 MG PO DAILY Carvedilol (Carvedilol) 3.125 Mg Tab, 3.125 MG PO BID Clonazepam (Clonazepam) 0.5 Mg Tab, 0.5 MG PO BID for ANXIETY Clonidine HCl (Clonidine HCl) 0.1 Mg Tab, 0.1 MG PO TID Doxycycline Hyclate (Doxycycline Hyclate) 100 Mg Capsule, 100 MG PO BID Duloxetine Hcl (Duloxetine HCl) 30 Mg Cap, 30 MG PO BID Gabapentin (Gabapentin) 800 Mg Tab, 800 MG PO TID Warfarin Sodium (Warfarin Sodium) 4 Mg Tab, 8 MG PO QPM Scheduled PRN Albuterol Sulfate (Ventolin Hfa) 18 Gm Hfa.aer.ad, 2 PUFF INH Q4-6HP PRN for wheezing Alprazolam (Alprazolam) 0.25 Mg Tab, 0.25 MG PO QHS PRN for ANXIETY/AGITATION Ibuprofen (Ibuprofen) 200 Mg Capsule, 200 MG PO PRN PRN for PAIN Oxycodone HCl/Acetaminophen (Oxycodone-Acetaminophen 5-325) 1 Tab Tab, 1 TAB PO Q6H PRN for PAIN Trazodone HCl (Trazodone HCl) 50 Mg Tab, 150 MG PO QHS PRN for SLEEP Allergies Coded Allergies: No Known Allergies (Unverified , 05/07/19) A-FIB/CHADSVASC A-FIB History Current/History of A-Fib/PAF?: No Current PO Anticoag Therapy: No ELLIOT WALSH MD May 23, 2019 23:26
[2019-05-23] MEDS ORDERED: LABETALOL HCL 100 MG/20 ML VIAL As Ordered ONE (23:27)
[2019-05-23] MEDS: LABETALOL HCL 100 MG/20 ML VIAL IV SCH ×3 (23:30→23:45)
[2019-05-24] VITALS (12 sets, daily range): BP systolic 138–181; BP diastolic 78–94
[2019-05-24] MEDS ORDERED: ALBUTEROL 90 MCG/ACT 8GM HFA INHALER INH PRN (04:00)
[2019-05-24] MEDS ORDERED: traZODone 50 MG TAB PO PRN (04:00)
[2019-05-24] MEDS ORDERED: ALPRAZolam 0.25 MG TAB PO PRN (04:00)
[2019-05-24] MEDS: diazePAM 5 MG TAB PO SCH (05:00)
[2019-05-24 07:20] LABS: INR 1.06; PROTHROMBIN TIME 13.5 SECONDS (11.8-14.0)
[2019-05-24] MEDS: GABAPENTIN 400 MG CAP PO SCH ×3 (08:24→20:22)
[2019-05-24] MEDS: DULoxetine 30 MG CAP (CYMBALTA) PO SCH ×2 (08:24→20:22)
[2019-05-24] MEDS: amLODIPine 5 MG TAB PO SCH (08:25)
[2019-05-24] MEDS: CARVedilol 3.125 MG TAB PO SCH ×2 (08:25→20:21)
[2019-05-24] MEDS: cloNIDine 0.1 MG TAB PO SCH ×3 (08:25→20:22)
[2019-05-24] MEDS ORDERED: clonazePAM 0.5 MG TAB PO SCH (09:00)
[2019-05-24] MEDS ORDERED: ATORVASTATIN 20 MG TAB PO SCH (09:00)
--- NOTE | 2019-05-24 09:04 | IPNPDOC ---
Text Note Date of Service The patient was seen on 05/24/19. NOTE Vascular surgery. Dr. Amaya The patient is a 59-year-old male with history of right lower extremity PAD status post right lower extremity AKA, with history of progressive atherosclerosis of the left lower extremity POD1 left distal external iliac artery and common femoral artery endarterectomy with patch angioplasty, left femoral to above knee popliteal artery bypass with in situ saphenous vein. The patient is awake and alert resting in bed. The patient states his pain has been reasonably controlled. The patient states he has numb tingly sensation around the left knee area, this has been chronic. The patient states pain in the left foot is improved. The patient is afebrile. Dressings are intact over surgical sites left lower extremity. Dressings are removed, the patient's wounds are thoroughly cleaned and dressings are re applied. mepilex over groin and distal thigh wound, dry dressing over smaller wounds upper thigh. There is no drainage or bleeding noted. No warmth. Minimal ecchymosis surrounding the incision. The left foot is warm to touch with good capillary refill. There are strong Doppler signals over the DP and PT. No new labs this a.m. Continue with pain control. The patient remains on Percocet 1-2 tabs as needed, oxycodone for breakthrough pain and Valium if needed. Continue with wound care daily. PT/OT pending. Patient has not yet been out of bed this morning. Antihypertensive management as per medicine service. Plan is to restart Coumadin later today. Statin. Continue to follow. VS,Fishbone, I+O VS, Fishbone, I+O Laboratory Tests 05/23/19 12:12 Vital Signs Date Time Temp Pulse Resp B/P (MAP) Pulse Ox O2 Delivery O2 Flow Rate FiO2 05/24/19 08:25 74 178/86 05/24/19 06:00 97.4 20 95 Nasal Cannula 2.0 I&O- Last 24 Hours up to 6 AM 05/24/19 05:59 Intake Total 4800 ml Output Total 350 ml Balance 4450 ml Lolis Ford May 24, 2019 09:04
--- NOTE | 2019-05-24 10:18 | IPNPDOC ---
Subjective Date Seen The patient was seen on 05/24/19. Subjective Chief Complaint/HPI No complaints - pain well controlled Constitutional: Denies: Chills, Fever Pulmonary: Denies: Dyspnea, Cough Cardiovascular: Denies: Chest Pain, Palpitations Gastrointestinal: Denies: Nausea, Vomiting, Abdominal Pain, Diarrhea, Constipation Objective Physical Examination General Exam: Positive: Alert, No Acute Distress Chest Exam: Positive: Clear to auscultation; Negative: Rales, Rhonchi, Wheezing Heart Exam: Positive: Rate Normal, Regular Rhythm Abdomen Exam: Positive: Normal bowel sounds, Soft; Negative: Tenderness Extremity Exam: Positive: Other (Left foot warm with good cap refill and palpable CP pulse. 2nd toenail evulsed with dry scabbed ulceration in nailbed); Negative: Edema Assessment /Plan Problems (1) S/P femoral-popliteal bypass surgery Problem Text: Per Dr. Aranda (2) Anticoagulant long-term use Status: Chronic Problem Text: Not entirely certain why he is on Coumadin - Recently established with Dr. Bhandari will continue for now and defer research on why he is on this to his PCP He reports it was started by opthalmologist He has bioprosthetic heart valve so shoul dnot need anti-coag PMH in ecw suggests ? h/o "blood clots in leg x 2" (3) Severe peripheral arterial disease Status: Chronic Response to Treatment: Stable (4) HTN (hypertension) (5) Hypercholesteremia Status: Chronic Problem Text: on Atorvastatin 20 mg daily - I would increase to 40 mg considering his known PVD (6) H/O aortic valve replacement Status: Chronic Problem Text: s/p bioprosthetic valve replacement Plan/VTE VTE Prophylaxis Ordered?: Yes (see above) Plan Therapy: PT VS, I&O, 24H, Fishbone Vital Signs/I&O Vital Signs Date Time Temp Pulse Resp B/P (MAP) Pulse Ox O2 Delivery O2 Flow Rate FiO2 05/24/19 09:51 160/82 (108) 05/24/19 08:25 74 05/24/19 06:00 97.4 20 95 Nasal Cannula 2.0 I&O- Last 24 Hours up to 6 AM 05/24/19 06:00 Intake Total 5100 ml Output Total 1350 ml Balance 3750 ml Laboratory Data 24H LABS Laboratory Tests 2 05/23/19 12:12: Nucleated Red Blood Cells % (auto) 0.0, Prothrombin Time 13.3, Prothromb Time International Ratio 1.04, Activated Partial Thromboplast Time 28.9, Anion Gap 6L, Glomerular Filtration Rate 54.6, Calcium Level 8.9 05/23/19 19:11: POC pH (Misc Panel) 7.270L, POC Base Excess (Misc Panel) -5.0L, POC Saturated Percent O2 (Misc) 92L, POC pO2 (Misc Panel) 74.0L, POC pCO2 (Misc Panel) 47.8H, POC HCO3 (Misc Panel) 22.0, POC Glucose (Misc Panel) 129H, POC Sodium (Misc Panel) 136, POC Potassium (Misc Panel) 5.3H, POC Total CO2 (Misc Panel) 23.0, POC Ionized Calcium (Misc Panel) 4.7, POC Hemoglobin (Calculated)(Misc) 13.6, POC Hematocrit (Misc Panel) 40.0 05/23/19 19:34: Kaolin Activated Coagulation Time 175H 05/23/19 20:29: Kaolin Activated Coagulation Time 202H 05/23/19 21:08: POC pH (Misc Panel) 7.354, POC Base Excess (Misc Panel) -5.0L, POC Saturated Percent O2 (Misc) 98, POC pO2 (Misc Panel) 115.0H, POC pCO2 (Misc Panel) 36.7, POC HCO3 (Misc Panel) 20.5L, POC Glucose (Misc Panel) 125H, POC Sodium (Misc Panel) 137, POC Potassium (Misc Panel) 5.2H, POC Total CO2 (Misc Panel) 22.0L, POC Ionized Calcium (Misc Panel) 4.5, POC Hemoglobin (Calculated)(Misc) 12.2, POC Hematocrit (Misc Panel) 36.0L 05/23/19 21:24: Kaolin Activated Coagulation Time 219H 05/24/19 06:40: Prothrombin Time 13.5, Prothromb Time International Ratio 1.06 CBC/BMP Laboratory Tests 05/23/19 12:12 PO RICHARDS PA-C May 24, 2019 10:18
[2019-05-24] MEDS: PERCOCET 5MG/325MG TAB PO PRN ×2 (10:46→16:10)
[2019-05-24] MEDS: WARFARIN SOD 4 MG TAB PO SCH (16:10)
[2019-05-24] MEDS: oxyCODONE 5MG TAB PO PRN (17:23)
[2019-05-25] VITALS (7 sets, daily range): BP systolic 170–182; BP diastolic 90–100
[2019-05-25] MEDS: PERCOCET 5MG/325MG TAB PO PRN ×4 (00:25→20:55)
[2019-05-25 06:24] LABS: HEMATOCRIT 39.6 % (42.0-52.0); MEAN CORPUSCULAR HEMOGLOBIN 30.4 pg (27.0-33.0); MEAN CORPUSCULAR HGB CONC 32.1 g/dl (32.0-36.5); MEAN CORPUSCULAR VOLUME 94.7 fl (80.0-96.0); PLATELET COUNT, AUTOMATED 162 10^3/uL (150-450); RED BLOOD COUNT 4.18 10^6/uL (4.30-6.10); WHITE BLOOD COUNT 10.2 10^3/uL (4.0-10.0)
[2019-05-25 06:25] LABS: HEMOGLOBIN 12.7 g/dl (13.5-17.5)
[2019-05-25 06:36] LABS: INR 1.07; PROTHROMBIN TIME 13.6 SECONDS (11.8-14.0)
[2019-05-25 06:48] LABS: ALBUMIN 2.8 GM/DL (3.2-5.2); BILIRUBIN,TOTAL 0.4 MG/DL (0.2-1.0); CALCIUM LEVEL 8.6 MG/DL (8.8-10.2); CREATININE FOR GFR 1.85 MG/DL (0.70-1.30); GLOMERULAR FILTRATION RATE 39.9 (>49); POTASSIUM SERUM 4.2 MEQ/L (3.5-5.1); TOTAL PROTEIN 6.9 GM/DL (6.4-8.2)
[2019-05-25] MEDS: DULoxetine 30 MG CAP (CYMBALTA) PO SCH ×2 (08:05→20:55)
[2019-05-25] MEDS: amLODIPine 5 MG TAB PO SCH (08:05)
[2019-05-25] MEDS: GABAPENTIN 400 MG CAP PO SCH ×3 (08:05→20:55)
[2019-05-25] MEDS: CARVedilol 3.125 MG TAB PO SCH ×2 (08:06→20:55)
[2019-05-25] MEDS: cloNIDine 0.1 MG TAB PO SCH ×3 (08:06→20:55)
[2019-05-25] MEDS: ATORVASTATIN 20 MG TAB PO SCH (08:06)
[2019-05-25] MEDS: oxyCODONE 5MG TAB PO PRN (11:37)
--- NOTE | 2019-05-25 11:42 | IPNPDOC ---
Text Note Date of Service The patient was seen on 05/25/19. NOTE Vascular surgery. Dr. Amaya The patient is a 59-year-old male with history of right lower extremity PAD status post right lower extremity AKA, with history of progressive atherosclerosis of the left lower extremity POD1 left distal external iliac artery and common femoral artery endarterectomy with patch angioplasty, left femoral to above knee popliteal artery bypass with in situ saphenous vein. The patient is awake and alert resting in bed. The patient states his pain has been reasonably controlled. The patient states he has numb tingly sensation around the left knee area, this has been chronic. The patient states pain in the left foot is improved. The patient is afebrile. Dressings are intact over surgical sites left lower extremity. Dressings are removed, the patient's wounds are thoroughly cleaned, there is surrounding ecchymosis and some irritation from tape, small amount of oozing. Dressings are replaced, mepilex over groin. Dry dressing is placed over thigh wound wounds, kerlix is applied with avoiding applying tape to the patient's skin. The left foot is warm to touch with good capillary refill. There are strong Doppler signals over the DP and PT. Continue with pain control. The patient remains on Percocet 1-2 tabs as needed, oxycodone for breakthrough pain and Xanax if needed. Continue with wound care daily. PT/OT. Coumadin was restarted 05/24, INR this a.m. 1.07. Statin. Continue to follow closely. VS,Fishbone, I+O VS, Fishbone, I+O Laboratory Tests 05/25/19 05:58 Vital Signs Date Time Temp Pulse Resp B/P (MAP) Pulse Ox O2 Delivery O2 Flow Rate FiO2 05/25/19 10:53 180/100 (126) 05/25/19 10:00 98.5 75 16 95 Room Air 05/24/19 14:00 0.0 I&O- Last 24 Hours up to 6 AM 05/25/19 05:59 Intake Total 2580 ml Output Total 6500 ml Balance -3920 ml Lolis Ford May 25, 2019 11:42
--- NOTE | 2019-05-25 11:44 | IPNPDOC ---
Subjective Date Seen The patient was seen on 05/25/19. Subjective Chief Complaint/HPI Leg pain with weight bearing. No other complaints Constitutional: Denies: Chills, Fever Pulmonary: Denies: Dyspnea, Cough Cardiovascular: Denies: Chest Pain, Palpitations Gastrointestinal: Denies: Nausea, Vomiting, Abdominal Pain, Diarrhea, Constipation Objective Physical Examination General Exam: Positive: Alert, No Acute Distress Chest Exam: Positive: Clear to auscultation; Negative: Rales, Rhonchi, Wheezing Heart Exam: Positive: Rate Normal, Regular Rhythm Abdomen Exam: Positive: Normal bowel sounds, Soft; Negative: Tenderness Extremity Exam: Positive: Other (Left foot warm with good cap refill and palpable CP pulse. 2nd toenail evulsed with dry scabbed ulceration in nailbed Right AKA); Negative: Edema Assessment /Plan Problems (1) RENZO (acute kidney injury) Status: Acute Problem Text: creatinine rising - not on renal toxic meds May be related to dye given during vascular procedure? Start IVF and monitor trend (2) S/P femoral-popliteal bypass surgery Problem Text: Per Dr. Aranda (3) Anticoagulant long-term use Status: Chronic Problem Text: 05/25 - INR = 1.08 - Give Coumadin 10 mg today, then 8 mg daily Not entirely certain why he is on Coumadin - Recently established with Dr. Anand an will continue for now and defer research on why he is on this to his PCP He reports it was started by opthalmologist He has bioprosthetic heart valve so should not need anti-coag for this PMH in ecw suggests ? h/o "blood clots in leg x 2 (4) HTN (hypertension) Status: Chronic Problem Text: BP high - increase norvasc to 10 mg. Hold off on CORBIN/ARB due to RENZO (5) Severe peripheral arterial disease Status: Chronic Response to Treatment: Stable (6) Hypercholesteremia Status: Chronic Problem Text: on Atorvastatin 20 mg daily - I would increase to 40 mg considering his known PVD (7) H/O aortic valve replacement Status: Chronic Problem Text: s/p bioprosthetic valve replacement Plan/VTE VTE Prophylaxis Ordered?: Yes (see above) Plan Therapy: PT Disposition Patient has AKA right and recovering from vascular surgery on left leg - limits ability to pivet. I have asked PT to make him a priority this weekend so we can optimize him physically for safe discharge soon. VS, I&O, 24H, Fishbone Vital Signs/I&O Vital Signs Date Time Temp Pulse Resp B/P (MAP) Pulse Ox O2 Delivery O2 Flow Rate FiO2 05/25/19 10:53 180/100 (126) 05/25/19 10:00 98.5 75 16 95 Room Air 05/24/19 14:00 0.0 I&O- Last 24 Hours up to 6 AM 05/25/19 06:00 Intake Total 2580 ml Output Total 6200 ml Balance -3620 ml Laboratory Data 24H LABS Laboratory Tests 2 05/24/19 12:02: Bedside Glucose (Misc Panel) 131H 05/25/19 05:58: Nucleated Red Blood Cells % (auto) 0.0, Prothrombin Time 13.6, Prothromb Time International Ratio 1.07, Anion Gap 5L, Glomerular Filtration Rate 39.9L, Calcium Level 8.6L, Total Bilirubin 0.4, Aspartate Amino Transf (AST/SGOT) 39H, Alanine Aminotransferase (ALT/SGPT) 16, Alkaline Phosphatase 66, Total Protein 6.9, Albumin 2.8L, Albumin/Globulin Ratio 0.68L CBC/BMP Laboratory Tests 05/25/19 05:58 PO RICHARDS PA-C May 25, 2019 11:44
[2019-05-25] MEDS ORDERED: amLODIPine 5 MG TAB PO ONE (11:45)
[2019-05-25] MEDS: LR 1,000 ML IV SCH (12:56)
[2019-05-25] MEDS ORDERED: WARFARIN SOD 5 MG TAB PO ONE (17:00)
[2019-05-26] MEDS: oxyCODONE 5MG TAB PO PRN ×4 (00:04→16:51)
[2019-05-26] MEDS: LR 1,000 ML IV SCH ×2 (00:15→13:35)
[2019-05-26] MEDS: PERCOCET 5MG/325MG TAB PO PRN ×3 (02:27→14:46)
[2019-05-26 05:58] LABS: BASO # 0.1 10^3/uL (0.0-0.2); BASO % 0.6 % (0.0-1.0); EOS # 0.4 10^3/uL (0.0-0.5); EOS % 3.9 % (0.0-3.0); HEMATOCRIT 39.3 % (42.0-52.0); HEMOGLOBIN 12.6 g/dl (13.5-17.5); LYMPH # 1.6 10^3/uL (1.5-5.0); LYMPH % 16.5 % (24.0-44.0); MEAN CORPUSCULAR HEMOGLOBIN 30.4 pg (27.0-33.0); MEAN CORPUSCULAR HGB CONC 32.1 g/dl (32.0-36.5); MEAN CORPUSCULAR VOLUME 94.7 fl (80.0-96.0); MONO # 1.2 10^3/uL (0.0-0.8); MONO % 12.3 % (0.0-5.0); NEUTROPHILS # 6.2 10^3/uL (1.5-8.5); NEUTROPHILS % 64.8 % (36.0-66.0); PLATELET COUNT, AUTOMATED 169 10^3/uL (150-450); RED BLOOD COUNT 4.15 10^6/uL (4.30-6.10); WHITE BLOOD COUNT 9.6 10^3/uL (4.0-10.0)
[2019-05-26 06:00] VITALS: BP 168/71
[2019-05-26 06:09] LABS: INR 1.27; PROTHROMBIN TIME 15.6 SECONDS (11.8-14.0)
[2019-05-26 06:18] LABS: ALBUMIN 2.7 GM/DL (3.2-5.2); BILIRUBIN,TOTAL 0.6 MG/DL (0.2-1.0); CALCIUM LEVEL 8.5 MG/DL (8.8-10.2); CREATININE FOR GFR 1.66 MG/DL (0.70-1.30); GLOMERULAR FILTRATION RATE 45.2 (>49); TOTAL PROTEIN 6.8 GM/DL (6.4-8.2)
[2019-05-26] MEDS: ATORVASTATIN 20 MG TAB PO SCH (08:23)
[2019-05-26] MEDS: GABAPENTIN 400 MG CAP PO SCH ×3 (08:23→21:26)
[2019-05-26] MEDS: DULoxetine 30 MG CAP (CYMBALTA) PO SCH ×2 (08:23→21:27)
[2019-05-26] MEDS: CARVedilol 3.125 MG TAB PO SCH (08:24)
[2019-05-26] MEDS: cloNIDine 0.1 MG TAB PO SCH ×2 (08:24→14:46)
[2019-05-26] MEDS: amLODIPine 10 MG TAB PO SCH (08:24)
[2019-05-26 14:00] VITALS: BP 190/99
[2019-05-26 15:49] VITALS: BP 162/82
--- NOTE | 2019-05-26 16:14 | IPNPDOC ---
Date Seen The patient was seen on 05/26/19. Progress Note Patient seen and examined. He has had his leg in a dependent position most of the day, and there is quite a bit of swelling. I have encouraged him to elevate his leg above the level of the heart for the rest of the day and night to help diminish swelling. I do not want his incisions to be under any tension from overt edema and swelling. So far, his incisions are all clean dry and intact. He does have serous drainage from each of them, and I believe elevation will help with venous return and serous drainage as well. All incisions were clean and dry and dry gauze was placed over the darrion on the thigh and wrapped with Kerlix to prevent tape breaking down the skin, and the silver dressing was placed at the groin. The patient tolerated this well. He has a triphasic signal at the posterior tibial artery the right ankle, and a strong signal over the bypass graft. We are pleased with his perfusion. He should continue physical therapy and occupational therapy and hopefully he will be a candidate for rehabilitation as a not sure he will be able to transition back home easily. We will continue to follow. VS, I&O, 24H, Tresbone Vital Signs/I&O Vital Signs Date Time Temp Pulse Resp B/P (MAP) Pulse Ox O2 Delivery O2 Flow Rate FiO2 05/26/19 15:49 162/82 (108) 05/26/19 15:16 16 05/26/19 14:00 98.6 72 95 Room Air 05/24/19 14:00 0.0 I&O- Last 24 Hours up to 6 AM 05/26/19 06:00 Intake Total 2210 ml Output Total 2625 ml Balance -415 ml Laboratory Data 24H LABS Laboratory Tests 2 05/26/19 05:31: Immature Granulocyte % (Auto) 1.9, Neutrophils (%) (Auto) 64.8, Lymphocytes (%) (Auto) 16.5L, Monocytes (%) (Auto) 12.3H, Eosinophils (%) (Auto) 3.9H, Basophils (%) (Auto) 0.6, Neutrophils # (Auto) 6.2, Lymphocytes # (Auto) 1.6, Monocytes # (Auto) 1.2H, Eosinophils # (Auto) 0.4, Basophils # (Auto) 0.1, Nucleated Red Blood Cells % (auto) 0.0, Prothrombin Time 15.6H, Prothromb Time International Ratio 1.27, Anion Gap 7L, Glomerular Filtration Rate 45.2L, Calcium Level 8.5L, Total Bilirubin 0.6, Aspartate Amino Transf (AST/SGOT) 25, Alanine Aminotransferase (ALT/SGPT) 14, Alkaline Phosphatase 65, Total Protein 6.8, Albumin 2.7L, Albumin/Globulin Ratio 0.66L CBC/BMP Laboratory Tests 05/26/19 05:31 BIJAN CASTRO MD May 26, 2019 16:13
[2019-05-26] MEDS: WARFARIN SOD 4 MG TAB PO SCH (16:51)
--- NOTE | 2019-05-26 19:34 | IPNPDOC ---
Subjective Date Seen The patient was seen on 05/26/19. Subjective Chief Complaint/HPI Brendanward reports that his left leg is still sore and is having more discomfort in his groin near the catheter insertion site today. He is keeping his leg elevated and the edema that was reported earlier is going down. He reports he's been out of bed and stood on the leg 3 times today. Nursing has reported episodes of elevated blood pressure. This seemed to be just before his clonidine was due. General: Reports: Normal Appetite Constitutional: Denies: Chills, Fever Pulmonary: Denies: Dyspnea, Cough Cardiovascular: Denies: Chest Pain, Palpitations Genitourinary: Denies: Dysuria Neurological: Reports: Other Symptoms (some tinnitus which might be related to the elevated blood pressure) Psych: Reports: Mood Normal Objective Physical Examination General Exam: Positive: Alert, Cooperative (laying in bed watching television with his left leg elevated when it other), No Acute Distress Eye Exam: Positive: Conjunctiva & lids normal; Negative: Sclera icteric ENT Exam: Positive: Mucous membr. moist/pink Neck Exam: Negative: Lymphadenopathy Chest Exam: Positive: Clear to auscultation; Negative: Rales, Rhonchi, Wheezing Heart Exam: Positive: Rate Normal, Regular Rhythm Abdomen Exam: Positive: Normal bowel sounds, Soft; Negative: Tenderness Extremity Exam: Positive: Other (Left foot warm with good cap refill and palpable CP pulse. There is slight serous discharge noted on his bandage. Right AKA); Negative: Edema Psych Exam: Positive: Mood NL, Oriented x 3 Assessment /Plan Problems (1) S/P femoral-popliteal bypass surgery Problem Text: Per Dr. Aranda (2) HTN (hypertension) Status: Chronic Problem Text: BP high -I'm concerned he might be having rebound hypertension related to oral clonidine therapy. I can either switching to a Catapres-TTS or stopped the clonidine. I'm not pleased with the idea of using an alpha nani and beta nani in conjunction anyway, so I will stop the clonidine and will increase his carvedilol from 3.125 mg twice a day to 6.25 mg twice a day. This appears to what Dr. Bhandari had him on after her last visit anyway. Hold off on CORBIN/ARB due to RENZO. (3) RENZO (acute kidney injury) Status: Acute Problem Text: His creatinine is improving today. The bump we saw yesterday might well have been related to dye. We'll continue on gentle hydration with IV fluids. (4) Anticoagulant long-term use Status: Chronic Problem Text: INR = 1.27 - he is now on 8 mg daily. We'll continue to monitor. Not entirely certain why he is on Coumadin - Recently established with Dr. Bhandari. The patient reports it was started by an pull worker. Dr. Bhandari t hinks it might be for retinal artery occlusion, although this is not his usual indication for anticoagulation. He has bioprosthetic heart valve so should not need anti-coag for this. Because we don't have the full information we will assume he was receiving appropriate care and continue anticoagulating him with goal INR 2-3 while we continue to look into this situation. If we determine anticoagulation is unnecessary we will stop at that time. (5) Severe peripheral arterial disease Status: Chronic Response to Treatment: Stable Problem Text: Recently had femoropopliteal bypass with Dr. Amaya. (6) Hypercholesteremia Status: Chronic Problem Text: We have increased his atorvastatin to 40 mg considering his known PVD. (7) H/O aortic valve replacement Status: Chronic Problem Text: s/p bioprosthetic valve replacement Plan/VTE VTE Prophylaxis Ordered?: Yes (anticoagulated with Coumadin) Plan Therapy: PT VS, I&O, 24H, Fishbone Vital Signs/I&O Vital Signs Date Time Temp Pulse Resp B/P (MAP) Pulse Ox O2 Delivery O2 Flow Rate FiO2 05/26/19 17:21 16 05/26/19 15:49 162/82 (108) 05/26/19 14:00 98.6 72 95 Room Air 05/24/19 14:00 0.0 I&O- Last 24 Hours up to 6 AM 05/26/19 06:00 Intake Total 2210 ml Output Total 2625 ml Balance -415 ml Laboratory Data 24H LABS Laboratory Tests 2 05/26/19 05:31: Immature Granulocyte % (Auto) 1.9, Neutrophils (%) (Auto) 64.8, Lymphocytes (%) (Auto) 16.5L, Monocytes (%) (Auto) 12.3H, Eosinophils (%) (Auto) 3.9H, Basophils (%) (Auto) 0.6, Neutrophils # (Auto) 6.2, Lymphocytes # (Auto) 1.6, Monocytes # (Auto) 1.2H, Eosinophils # (Auto) 0.4, Basophils # (Auto) 0.1, Nucleated Red Blood Cells % (auto) 0.0, Prothrombin Time 15.6H, Prothromb Time International Ratio 1.27, Anion Gap 7L, Glomerular Filtration Rate 45.2L, Calcium Level 8.5L, Total Bilirubin 0.6, Aspartate Amino Transf (AST/SGOT) 25, Alanine Aminotransferase (ALT/SGPT) 14, Alkaline Phosphatase 65, Total Protein 6.8, Albumin 2.7L, Albumin/Globulin Ratio 0.66L CBC/BMP Laboratory Tests 05/26/19 05:31 Navi Giordano MD May 26, 2019 19:34
[2019-05-26 20:00] VITALS: BP 170/96
[2019-05-26] MEDS: CARVedilol 6.25 MG TAB PO SCH (21:26)
[2019-05-26 23:15] VITALS: BP 228/100
[2019-05-26 23:45] VITALS: BP 210/108
[2019-05-26] MEDS ORDERED: hydrALAZINE INJ 20 MG/ML VIAL IV ONE (23:45)
--- NOTE | 2019-05-26 23:51 | IPNPDOC ---
Text Note Date of Service The patient was seen on 05/26/19. NOTE Interim note: I was called by nursing staff because Mr. Marino has a significantly elevated blood pressure of 228/100. He had a SBP of 190 earlier today, but this was just before his dose of clonidine was due. After he received the clonidine his pressure did come down, although it was still above goal. I was concerned because he is on both an alpha nani and a beta nani. Alpha blockers are generally not good medications for hypertension management in the outpatient set ting because of the risk of rebound hypertension at the end of their therapeutic window. If needed a clonidine TTS patch could be used, however there is still the risk of significant michael blockade using an alpha nani and beta nani together. So, earlier today I stopped the clonidine and increased his carvedilol to 6.25 mg twice a day from 3.125 mg twice a day. This is more in line with what his outpatient regimen is supposed to be anyway. I'm not certain if his significantly elevated blood pressure now is rebound hypertension from withdrawal of the clonidine or a separate problem and of itself. I'd like to use IV hydralazine to treat his malignant hypertension, because once the clonidine is fully out of his system he may not need additional medication. I will move him to the PCU and give him a one-time dose of 20 mg of IV hydralazine. After this he'll have 10 mg when necessary every 6 hours as needed for systolic blood pressure over 180. If he needs repeat doses of hydralazine on need to find an additional medication that he can be on long-term in the outpatient setting. However, if he needs only one, or perhaps 2 doses of IV hydralazine, this may simply been the completion of his withdrawal from clonidine. VS,Fishbone, I+O VS, Fishbone, I+O Laboratory Tests 05/26/19 05:31 Vital Signs Date Time Temp Pulse Resp B/P (MAP) Pulse Ox O2 Delivery O2 Flow Rate FiO2 05/26/19 23:15 70 228/100 (142) 05/26/19 20:00 98.1 18 95 Room Air 05/24/19 14:00 0.0 I&O- Last 24 Hours up to 6 AM 05/26/19 06:00 Intake Total 3170 ml Output Total 2625 ml Balance 545 ml Navi Giordano MD May 26, 2019 11:51 pm
[2019-05-27] VITALS (10 sets, daily range): BP systolic 140–216; BP diastolic 82–105
[2019-05-27] MEDS ORDERED: hydrALAZINE INJ 20 MG/ML VIAL IV PRN (01:00)
[2019-05-27 05:26] LABS: BASO # 0.1 10^3/uL (0.0-0.2); BASO % 0.7 % (0.0-1.0); EOS # 0.4 10^3/uL (0.0-0.5); EOS % 4.1 % (0.0-3.0); HEMATOCRIT 40.7 % (42.0-52.0); HEMOGLOBIN 13.3 g/dl (13.5-17.5); LYMPH # 1.4 10^3/uL (1.5-5.0); LYMPH % 12.8 % (24.0-44.0); MEAN CORPUSCULAR HEMOGLOBIN 30.2 pg (27.0-33.0); MEAN CORPUSCULAR HGB CONC 32.7 g/dl (32.0-36.5); MEAN CORPUSCULAR VOLUME 92.5 fl (80.0-96.0); MONO # 0.9 10^3/uL (0.0-0.8); MONO % 8.7 % (0.0-5.0); NEUTROPHILS # 7.8 10^3/uL (1.5-8.5); NEUTROPHILS % 72.2 % (36.0-66.0); PLATELET COUNT, AUTOMATED 195 10^3/uL (150-450); WHITE BLOOD COUNT 10.8 10^3/uL (4.0-10.0)
[2019-05-27 05:33] LABS: INR 1.46; PROTHROMBIN TIME 17.5 SECONDS (11.8-14.0)
[2019-05-27 05:39] LABS: ALBUMIN 2.8 GM/DL (3.2-5.2); CALCIUM LEVEL 8.8 MG/DL (8.8-10.2); CREATININE FOR GFR 1.65 MG/DL (0.70-1.30); GLOMERULAR FILTRATION RATE 45.5 (>49); PHOSPHORUS LEVEL 2.6 MG/DL (2.5-4.9); POTASSIUM SERUM 3.9 MEQ/L (3.5-5.1)
[2019-05-27] MEDS: amLODIPine 10 MG TAB PO SCH (08:13)
[2019-05-27] MEDS: DULoxetine 30 MG CAP (CYMBALTA) PO SCH ×2 (08:14→20:05)
[2019-05-27] MEDS: ATORVASTATIN 20 MG TAB PO SCH (08:14)
[2019-05-27] MEDS: GABAPENTIN 400 MG CAP PO SCH ×3 (08:14→20:05)
[2019-05-27] MEDS: CARVedilol 6.25 MG TAB PO SCH (08:14)
[2019-05-27] MEDS: PERCOCET 5MG/325MG TAB PO PRN ×2 (09:39→17:46)
[2019-05-27] MEDS ORDERED: LABETALOL 100 MG TAB PO ONE (10:00)
--- NOTE | 2019-05-27 10:07 | REP ---
Urinary tract sonography with renal artery Doppler flow assessment: History: Uncontrolled hypertension. Comparison CT angiography April 19, 2019. Morphologic findings: Scanning at the level urinary bladder shows no abnormality. Renal cortical echogenicity pattern is normal. Right renal dimensions are 11.2 x 4.8 x 5.0. Left kidney measures 12.8 x 6.2 x 5.9 cm. There are multiple cysts in each kidney. On the right the largest cyst measures 5.5 x 4.6 x 3.4 cm. It is in the lower pole. There are two other cysts in the right kidney measuring 1.9 and 2.1 cm in greatest diameter respectively. On the left, the largest cyst is in the upper pole measuring 3.2 x 3.4 x 2.3 cm. There is a 1.9 cm upper pole cyst on the left and a 2.0 cm cyst is seen in the lower pole. There is no evidence of hydronephrosis on either side. Renal artery Doppler flow assessment: Peak systolic flow velocity in the abdominal aorta at the level of the main renal arteries is normal, recorded as 64.3 cm/sec. Exam quality was inhibited. Peak systolic flow velocity could not be recorded in the right main renal artery and infrarenal interlobar arteries could not be assessed in the right kidney. Two of the three known main renal arteries on the left were observed by sonography. Peak systolic flow velocity in these were recorded at 61 and 82 cm/sec. These values are normal. Resistive indices and acceleration times were successfully measured in the intralobar arteries of the left kidney upper mid and lower pole and these values were normal. Impression: Limited Doppler study as above. Multiple bilateral renal cysts. No evidence of hydronephrosis. Electronically Signed by Ricky Rendon MD 05/27/2019 10:48 A
--- NOTE | 2019-05-27 11:56 | IPNPDOC ---
Date Seen The patient was seen on 05/27/19. Progress Note Patient seen and examined. He was transferred to the PCU last night due to hypertensive urgency with blood pressures to 220/100. The hospitalist team is managing his hypertension and we appreciate their assistance. He is still hypertensive today, and he will need ongoing adjustments to his medications. He says when his blood pressure was very high, he had a severe headache and ringing in his ears, but that has improved today. On exam of his left lower extremity, the patient has some serous drainage from the 3 small incisions on the medial thigh. The groin and the lower thigh incisions have minimal drainage. All staple lines are clean and intact and were thoroughly cleaned and redressed. The patient tolerated this well. He has a strong Doppler signal over the bypass and at the PT and a monophasic signal over the DP. His foot is warm and well- perfused and his second toe ulcer appears to be healing. He has quite a bit of swelling in the left lower extremity and needs to keep his leg elevated. He keeps it in a dependent position for a good part of the day, but we encouraged him again to elevate the leg past the level of the heart as tolerated to diminish swelling and edema. He says he will try his best. He is getting up out of bed, sometimes with assistance sometimes by himself. I encouraged him not to get up by himself because we want to avoid a fall. Especially with his blood pressure being so elevated he might get dizzy. He is agreeable. We will see how he does with physical and occupational therapy and if he has a rehabilitation candidate for possible discharge early this week. Continue local wound care and medical management. Will follow. VS, I&O, 24H, Fishbone Vital Signs/I&O Vital Signs Date Time Temp Pulse Resp B/P (MAP) Pulse Ox O2 Delivery O2 Flow Rate FiO2 05/27/19 10:57 150/92 (111) 05/27/19 10:09 17 05/27/19 08:14 82 05/27/19 08:00 98.3 97 Room Air 05/24/19 14:00 0.0 I&O- Last 24 Hours up to 6 AM 05/27/19 06:00 Intake Total 2280 ml Output Total 3500 ml Balance -1220 ml Laboratory Data 24H LABS Laboratory Tests 2 05/27/19 05:08: Immature Granulocyte % (Auto) 1.5, Neutrophils (%) (Auto) 72.2H, Lymphocytes (%) (Auto) 12.8L, Monocytes (%) (Auto) 8.7H, Eosinophils (%) (Auto) 4.1H, Basophils (%) (Auto) 0.7, Neutrophils # (Auto) 7.8, Lymphocytes # (Auto) 1.4L, Monocytes # (Auto) 0.9H, Eosinophils # (Auto) 0.4, Basophils # (Auto) 0.1, Nucleated Red B lood Cells % (auto) 0.0, Prothrombin Time 17.5H, Prothromb Time International Ratio 1.46, Anion Gap 8, Glomerular Filtration Rate 45.5L, Calcium Level 8.8, Phosphorus Level 2.6, Albumin 2.8L CBC/BMP Laboratory Tests 05/27/19 05:08 BIJAN CASTRO MD May 27, 2019 11:56
--- NOTE | 2019-05-27 14:34 | CR ---
DATE OF CONSULTATION: 05/27/2019 REFERRING PHYSICIAN: Dr. Giordano. INDICATION: Hypertensive urgency. HISTORY OF PRESENT ILLNESS: Mr. Marino is previously unknown to me. He has been followed by Dr. Mercado and he has numerous other physicians. He was admitted for left aortofemoral bypass that was performed by Dr. Amaay on 05/23/2019. The procedure itself was uneventful and well tolerated, but then last night he started complaining about headache and it was noted that his blood pressure was very elevated. The highest documented reading I found in the computer is 216/90. He was given hydralazine without much effect and then Dr. Giordano called me this morning. After discussing the case, I suggested that the patient gets labetalol, which he did, and shortly thereafter his blood pressure dropped down. When I see him, he is feeling much improved and the last documented reading was 140/86. The patient reports that he has had high blood pressure for many years and he says that the control has been erratic. At times, it is very difficult to control and other times he has not had any problems. He reports that on an outpatient basis he is generally compliant with his medications and his chronic outpatient antihypertensives include amlodipine 5 mg daily, clonidine 0.1 mg three times a day and carvedilol 6.25 mg twice a day, even though it is not listed in his medication list. PAST MEDICAL HISTORY: 1. History of aortic valve replacement with bioprosthesis. In talking to the patient, it is likely that he also had replacement of ascending aorta because he recalls that he has a day Dacron graft. He is not certain whether he had a bypass surgery at the same time or not. He also cannot tell me whether he has established coronary artery disease. He does not recall that he ever had myocardial infarction and he is not certain whether he ever had any cardiac stenting. 2. Peripheral vascular disease that ultimately led to right above-knee amputation and recently performed left bypass surgery as per HPI. He also reports having numerous stents in the iliac arteries previously. 3. Hypertension. 4. Depression. 5. COPD. 6. Remote history of alcohol abuse with alcohol induced pancreatitis. 7. History of colon cancer with partial colectomy. 8. History of cerebrovascular accident. SURGICAL HISTORY: Positive for repeated surgeries for his PVD, aortic valve replacement with ascending aortic aneurysm repair in [facility] by Dr. Cadena, partial colectomy. SOCIAL HISTORY: The patient is single. Apparently recently split from girlfriend of 30 years. He has no children and lives with his mother. In spite of his amputation, he was taking care of himself without any additional outside assistance. He has been a smoker until very recently, but now he tells me that he realizes that he has to quit. No recent alcohol use. FAMILY HISTORY: No longer relevant. He denies any early history of coronary artery disease in first-degree relatives. Mostly cancer diagnoses. REVIEW OF SYSTEMS: Essentially not relevant to current presentation. He denies any chest pain. He denies shortness of breath, but obviously his activity level is fairly minimal. No paroxysmal nocturnal dyspnea (PND) or orthopnea. He typically does not have a headache until last night with his blood pressure being very high. Denies any anginal symptoms. Denies abdominal pain. He feels that he is intermittently constipated. No genitourinary symptoms. PHYSICAL EXAMINATION: Mr. Marino is a pleasant 59-year-old man who appears approximately his age. His last documented blood pressure was 140/86. Heart rate has been in 70s. He is afebrile. Saturation is 100% on room air. He is alert and oriented and appropriate. His jugular venous pulse (JVP) is not elevated. I do not appreciate distinct carotid bruits. Lungs are clear. Good air movement. Heart exam reveals regular rhythm. There is a faint murmur over the aortic valve. The closing sound is very distinct. I do not appreciate any apical murmur, either gallop or rub. Abdomen is soft. No hepatosplenomegaly. He has a right above knee amputation (AKA) with a stump with the remnants of his femur easily palpable under the skin. On the left lower extremity, there is a dressing over the recent bypass surgery. There is mild swelling surrounding it. I do not appreciate any evidence for large hematoma. Peripheral pulses are palpable. The acral parts of the extremities are warm. LABORATORIES: WBC count 10.8, hemoglobin 13.3, hematocrit 40.7, and platelet count 195,000. Basic metabolic panel is normal, but for a BUN 21 and creatinine of 1.7, with calculated GFR 45. This has not dramatically changed throughout this hospitalization, even though there has been mild fluctuation. Albumin is 2.8. No ECG was performed. Renal ultrasound revealed bilateral cysts, but no evidence for hydronephrosis. ASSESSMENT/PLAN: Mr. Marino is a 59-year-old man who has extensive medical history as outlined in history of present illness. I was asked to see him because of hypertensive urgency when his systolic blood pressure was over 200 mmHg and there was associated severe headache, but no additional symptoms. He is not my the patient and consequently I am reluctant to make any sweeping changes in his medication regimen, but nevertheless, I took the liberty and I will replace carvedilol by labetalol in significant doses, that will provide much better blood pressure control hopefully. I am generally not a friend of clonidine, which in my opinion, has a lot of undesirable side effects and I am going to keep holding the medication. But it is possible that the fact that he did not receive the medication contributed to his current presentation. Hopefully, these changes will be sufficient; if not, then additional adjustments can be made. He is followed by Dr. Mercado and I will sign him off to Dr. Ahuja who is covering their service tomorrow morning. GENO
--- NOTE | 2019-05-27 17:17 | IPNPDOC ---
Subjective Date Seen The patient was seen on 05/27/19. Subjective Chief Complaint/HPI His BP is remaining difficult to control. I will consult Dr. Davis today for some assistance. General: Reports: Normal Appetite Pulmonary: Denies: Dyspnea, Cough Cardiovascular: Denies: Chest Pain, Palpitations Neurological: Reports: Other Symptoms (headache) Psych: Reports: Mood Normal Objective Physical Examination General Exam: Positive: Alert, Cooperative (laying in bed watching television with his left leg elevated when it other), No Acute Distress Eye Exam: Positive: Conjunctiva & lids normal; Negative: Sclera icteric ENT Exam: Positive: Mucous membr. moist/pink Neck Exam: Negative: Lymphadenopathy Chest Exam: Positive: Clear to auscultation; Negative: Rales, Rhonchi, Wheezing Heart Exam: Positive: Rate Normal, Regular Rhythm Abdomen Exam: Positive: Normal bowel sounds, Soft; Negative: Tenderness Extremity Exam: Positive: Other (Left foot warm with good cap refill and palpable CP pulse. There is slight serous discharge noted on his bandage. Right AKA); Negative: Edema Psych Exam: Positive: Mood NL, Oriented x 3 Assessment /Plan Problems (1) S/P femoral-popliteal bypass surgery Problem Text: Per Dr. Aranda (2) HTN (hypertension) Status: Chronic Problem Text: BP high -I spoke with Dr. Anderson and we will try labatolol rather than carvadelol. He will see the patient and offer further suggestions. Hold off on CORBIN/ARB due to RENZO. (3) RENZO (acute kidney injury) Status: Acute Problem Text: His creatinine is improving today. The bump we saw yesterday might well have been related to dye. We'll continue on gentle hydration with IV fluids. (4) Anticoagulant long-term use Status: Chronic Problem Text: INR = 1.46 - he is now on 8 mg daily. We'll continue to monitor. Not entirely certain why he is on Coumadin - Recently established with Dr. Bhnadari. The patient reports it was started by an movie critic. Dr. Bhandari thinks it might be for retinal artery occlusion, although this is not his usual indication for anticoagulation. He has bioprosthetic heart valve so should not need anti-coag for this. Because we don't have the full information we will assume he was receiving appropriate care and continue anticoagulating him with goal INR 2-3 while we continue to look into this situation. If we determine anticoagulation is unnecessary we will stop at that time. (5) Severe peripheral arterial disease Status: Chronic Response to Treatment: Stable Problem Text: Recently had femoropopliteal bypass with Dr. Amaya. (6) Hypercholesteremia Status: Chronic Problem Text: We have increased his atorvastatin to 40 mg considering his known PVD. (7) H/O aortic valve replacement Status: Chronic Problem Text: s/p bioprosthetic valve replacement Plan/VTE VTE Prophylaxis Ordered?: Yes (anticoagulated with Coumadin) Plan Therapy: PT VS, I&O, 24H, Fishbone Vital Signs/I&O Vital Signs Date Time Temp Pulse Resp B/P (MAP) Pulse Ox O2 Delivery O2 Flow Rate FiO2 05/27/19 16:00 98.2 85 16 178/86 (116) 96 Room Air 05/24/19 14:00 0.0 I&O- Last 24 Hours up to 6 AM 05/27/19 06:00 Intake Total 2280 ml Output Total 3500 ml Balance -1220 ml Laboratory Data 24H LABS Laboratory Tests 2 05/27/19 05:08: Immature Granulocyte % (Auto) 1.5, Neutrophils (%) (Auto) 72.2H, Lymphocytes (%) (Auto) 12.8L, Monocytes (%) (Auto) 8.7H, Eosinophils (%) (Auto) 4.1H, Basophils (%) (Auto) 0.7, Neutrophils # (Auto) 7.8, Lymphocytes # (Auto) 1.4L, Monocytes # (Auto) 0.9H, Eosinophils # (Auto) 0.4, Basophils # (Auto) 0.1, Nucleated Red Blood Cells % (auto) 0.0, Prothrombin Time 17.5H, Prothromb Time International Ratio 1.46, Anion Gap 8, Glomerular Filtration Rate 45.5L, Calcium Level 8.8, Phosphorus Level 2.6, Albumin 2.8L CBC/BMP Laboratory Tests 05/27/19 05:08 Navi Giordano MD May 27, 2019 17:17
[2019-05-27] MEDS: LABETALOL 100 MG TAB PO SCH ×2 (17:46→20:05)
[2019-05-27] MEDS: WARFARIN SOD 4 MG TAB PO SCH (17:46)
[2019-05-27] MEDS ORDERED: SENOKOT S TAB PO ONE (21:00)
[2019-05-27] MEDS ORDERED: LABETALOL 100 MG TAB PO SCH (21:00)
[2019-05-28] VITALS (10 sets, daily range): BP systolic 141–196; BP diastolic 79–102
[2019-05-28] MEDS: PERCOCET 5MG/325MG TAB PO PRN ×3 (04:26→20:05)
[2019-05-28 05:35] LABS: BASO # 0.1 10^3/uL (0.0-0.2); BASO % 0.6 % (0.0-1.0); EOS # 0.5 10^3/uL (0.0-0.5); EOS % 4.9 % (0.0-3.0); HEMOGLOBIN 13.1 g/dl (13.5-17.5); LYMPH # 1.4 10^3/uL (1.5-5.0); LYMPH % 14.8 % (24.0-44.0); MEAN CORPUSCULAR HEMOGLOBIN 29.9 pg (27.0-33.0); MEAN CORPUSCULAR VOLUME 93.6 fl (80.0-96.0); MONO # 0.9 10^3/uL (0.0-0.8); MONO % 9.7 % (0.0-5.0); NEUTROPHILS # 6.6 10^3/uL (1.5-8.5); NEUTROPHILS % 68.1 % (36.0-66.0); PLATELET COUNT, AUTOMATED 216 10^3/uL (150-450); RED BLOOD COUNT 4.38 10^6/uL (4.30-6.10); WHITE BLOOD COUNT 9.7 10^3/uL (4.0-10.0)
[2019-05-28 05:40] LABS: INR 1.8; PROTHROMBIN TIME 20.6 SECONDS (11.8-14.0)
--- NOTE | 2019-05-28 09:41 | IPNPDOC ---
Subjective Date Seen The patient was seen on 05/28/19. Subjective Chief Complaint/HPI PAD Events since last encounter BP remains labile, improved at 162 at 0930. BP elevated with pain per nursing staff. Renal US completed yesterday due to elevated Cr and showed no significant abnormalities. Constitutional: Denies: Chills, Fever, Night Sweats Pulmonary: Denies: Dyspnea, Cough Cardiovascular: Denies: Chest Pain, Palpitations, Orthopnea, Paroxysmal Noc. Dyspnea, Lt Headedness Musculoskeletal: Reports: Leg Pain (LLE) Objective Physical Examination General Exam: Positive: Alert, Cooperative (laying in bed watching television with his left leg elevated when it other), No Acute Distress Eye Exam: Positive: Conjunctiva & lids normal; Negative: Sclera icteric ENT Exam: Positive: Mucous membr. moist/pink Neck Exam: Negative: Lymphadenopathy Chest Exam: Positive: Clear to auscultation; Negative: Rales, Rhonchi, Wheezing Heart Exam: Positive: Rate Normal, Regular Rhythm Abdomen Exam: Positive: Normal bowel sounds, Soft; Negative: Tenderness Extremity Exam: Positive: Normal pulses (LLE), Other (Left foot warm with good cap refill and palpable CP pulse. dressings clean and intact Right AKA); Negative: Edema Psych Exam: Positive: Mood NL, Oriented x 3 Assessment /Plan Problems (1) HTN (hypertension) Status: Chronic Problem Text: favor largely clonidine rebound HTN HD: clon 0.1 BID, carve 3.125 BID, amlo 5 slowly improving now on amlo 10, carve 25 BID, hydral IV prn (2) S/P femoral-popliteal bypass surgery Problem Text: Per Dr. Aranda (3) RENZO (acute kidney injury) Status: Acute Problem Text: close to baseline cr ~1.2-1.3 Renal US: Impression: Limited Doppler study as above. Multiple bilateral renal cysts. No evidence of hydronephrosis. (4) Anticoagulant long-term use Status: Chronic Problem Text: INR = 1.27 - he is now on 8 mg daily. We'll continue to monitor. Not entirely certain why he is on Coumadin - Recently established with Dr. Bhandari. The patient reports it was started by an data entry email processor. Dr. Bhandari thinks it might be for retinal artery occlusion, although this is not his usual indication for anticoagulation. He has bioprosthetic heart valve so should not need anti-coag for this. Because we don't have the full information we will assume he was receiving appropriate care and continue anticoagulating him with goal INR 2-3 while we continue to look into this situation. If we determine anticoagulation is unnecessary we will stop at that time. (5) Severe peripheral arterial disease Status: Chronic Response to Treatment: Stable Problem Text: Recently had femoropopliteal bypass with Dr. Amaya. (6) Hypercholesteremia Status: Chronic Problem Text: We have increased his atorvastatin to 40 mg considering his known PVD. (7) H/O aortic valve replacement Status: Chronic Problem Text: s/p bioprosthetic valve replacement Plan/VTE VTE Prophylaxis Ordered?: Yes (anticoagulated with Coumadin) Plan Therapy: PT VS, I&O, 24H, Fishbone Vital Signs/I&O Vital Signs Date Time Temp Pulse Resp B/P (MAP) Pulse Ox O2 Delivery O2 Flow Rate FiO2 05/28/19 08:00 97.0 71 18 196/102 (133) 96 Room Air 05/24/19 14:00 0.0 I&O- Last 24 Hours up to 6 AM 05/28/19 06:00 Intake Total 1380 ml Output Total 2350 ml Balance -970 ml Laboratory Data 24H LABS Laboratory Tests 2 05/28/19 04:58: Immature Granulocyte % (Auto) 1.9, Neutrophils (%) (Auto) 68.1H, Lymphocytes (%) (Auto) 14.8L, Monocytes (%) (Auto) 9.7H, Eosinophils (%) (Auto) 4.9H, Basophils (%) (Auto) 0.6, Neutrophils # (Auto) 6.6, Lymphocytes # (Auto) 1.4L, Monocytes # (Auto) 0.9H, Eosinophils # (Auto) 0.5, Basophils # (Auto) 0.1, Nucleated Red Blood Cells % (auto) 0.0, Prothrombin Time 20.6H, Prothromb Time International Ratio 1.80 CBC/BMP Laboratory Tests 05/28/19 04:58 Amy Yee May 28, 2019 09:41 Josh Blair M.D. May 28, 2019 15:24
[2019-05-28] MEDS: amLODIPine 10 MG TAB PO SCH (09:49)
[2019-05-28] MEDS: DULoxetine 30 MG CAP (CYMBALTA) PO SCH ×2 (09:49→20:01)
[2019-05-28] MEDS: GABAPENTIN 400 MG CAP PO SCH ×3 (09:51→20:02)
[2019-05-28] MEDS: ATORVASTATIN 20 MG TAB PO SCH (09:51)
[2019-05-28] MEDS: FUROSEMIDE 20 MG TAB PO SCH (10:02)
[2019-05-28] MEDS: CARVedilol 12.5 MG TAB PO SCH ×2 (10:02→20:02)
[2019-05-28] MEDS: SENNA 8.6 MG TAB (SENOKOT) PO SCH ×2 (11:37→20:02)
--- NOTE | 2019-05-28 16:05 | IPNPDOC ---
Text Note Date of Service The patient was seen on 05/28/19. NOTE Vascular surgery. Dr. Amaya The patient is a 59-year-old male with history of right lower extremity PAD status post right lower extremity AKA, with history of progressive atherosclerosis of the left lower extremity left distal external iliac artery and common femoral artery endarterectomy with patch angioplasty, left femoral to above knee popliteal artery bypass with in situ saphenous vein. The patient is awake and alert resting in bed. The patient states his pain has been reasonably controlled. The patient states pain in the left foot is improved. The patient is afebrile. Dressings are intact over surgical sites left lower extremity. Dressings are removed, the patient's wounds are thoroughly cleaned, some irritation from tape. Dressings are replaced, mepilex over thigh incision. Dry dressing is placed over thigh/groin wound wounds, kerlix is applied with avoiding applying tape to the patient's skin. The left foot is warm to touch with good capillary refill. There are strong Doppler signals over the DP and PT. Continue with pain control. The patient remains on Percocet 1-2 tabs as needed, oxycodone for breakthrough pain and Xanax if needed. Continue with wound care daily. PT/OT. Therapy was held related to elevated blood pressure. Blood pressure control as per medicine service. ARU screen pending. Coumadin, INR 1.80 Statin. Continue to follow closely. VS,Fishbone, I+O VS, Fishbone, I+O Laboratory Tests 05/28/19 04:58 Vital Signs Date Time Temp Pulse Resp B/P (MAP) Pulse Ox O2 Delivery O2 Flow Rate FiO2 05/28/19 15:49 96.9 74 17 180/98 (125) 100 Room Air 05/24/19 14:00 0.0 I&O- Last 24 Hours up to 6 AM 05/28/19 06:00 Intake Total 1380 ml Output Total 2350 ml Balance -970 ml Lolis Ford May 28, 2019 16:05
[2019-05-28] MEDS ORDERED: SLF 3 ML SYR IV PRN (16:15)
[2019-05-28] MEDS: WARFARIN SOD 4 MG TAB PO SCH (16:18)
[2019-05-28] MEDS: **hydrALAZINE HCL** 25 MG TAB PO SCH (21:27)
[2019-05-28] MEDS: SLF 3 ML SYR IV SCH (21:31)
[2019-05-29 04:00] VITALS: BP 178/102
[2019-05-29] MEDS: SLF 3 ML SYR IV SCH ×3 (05:03→22:19)
[2019-05-29] MEDS: **hydrALAZINE HCL** 25 MG TAB PO SCH ×2 (05:03→14:00)
[2019-05-29 06:10] LABS: BASO # 0.1 10^3/uL (0.0-0.2); BASO % 0.8 % (0.0-1.0); EOS # 0.7 10^3/uL (0.0-0.5); EOS % 7.4 % (0.0-3.0); HEMATOCRIT 38.5 % (42.0-52.0); HEMOGLOBIN 12.9 g/dl (13.5-17.5); LYMPH # 1.5 10^3/uL (1.5-5.0); LYMPH % 15.4 % (24.0-44.0); MEAN CORPUSCULAR HEMOGLOBIN 30.7 pg (27.0-33.0); MEAN CORPUSCULAR HGB CONC 33.5 g/dl (32.0-36.5); MEAN CORPUSCULAR VOLUME 91.7 fl (80.0-96.0); MONO % 9.9 % (0.0-5.0); NEUTROPHILS # 6.2 10^3/uL (1.5-8.5); PLATELET COUNT, AUTOMATED 221 10^3/uL (150-450); WHITE BLOOD COUNT 9.7 10^3/uL (4.0-10.0)
[2019-05-29 08:00] VITALS: BP 180/90
[2019-05-29] MEDS: SENNA 8.6 MG TAB (SENOKOT) PO SCH ×2 (08:31→20:56)
[2019-05-29] MEDS: FUROSEMIDE 20 MG TAB PO SCH (08:31)
[2019-05-29] MEDS: DULoxetine 30 MG CAP (CYMBALTA) PO SCH ×2 (08:31→20:55)
[2019-05-29] MEDS: ATORVASTATIN 20 MG TAB PO SCH (08:31)
[2019-05-29] MEDS: amLODIPine 10 MG TAB PO SCH (08:32)
[2019-05-29] MEDS: GABAPENTIN 400 MG CAP PO SCH ×3 (08:32→20:55)
[2019-05-29] MEDS: MIRALAX *UNIT DOSE* 17GM PACKET PO SCH (08:33)
[2019-05-29] MEDS: CARVedilol 12.5 MG TAB PO SCH ×2 (08:33→20:55)
--- NOTE | 2019-05-29 10:00 | IPNPDOC ---
Subjective Date Seen The patient was seen on 05/29/19. Subjective Chief Complaint/HPI PAD, HTN Events since last encounter BP slowly improving. denies c/o. pain is well controlled. plan on eval with PT today. Constitutional: Denies: Chills, Fever, Night Sweats Pulmonary: Denies: Dyspnea, Cough Cardiovascular: Denies: Chest Pain, Palpitations, Orthopnea, Paroxysmal Noc. Dyspnea, Lt Headedness Gastrointestinal: Denies: Nausea, Vomiting, Abdominal Pain, Diarrhea, Constipation Psych: Reports: Mood Normal; Denies: Depression, Memory Issues Objective Physical Examination General Exam: Positive: Alert, Cooperative, No Acute Distress Eye Exam: Positive: Conjunctiva & lids normal; Negative: Sclera icteric ENT Exam: Positive: Mucous membr. moist/pink Neck Exam: Negative: Lymphadenopathy Chest Exam: Positive: Clear to auscultation; Negative: Rales, Rhonchi, Wheezing Heart Exam: Positive: Rate Normal, Regular Rhythm Abdomen Exam: Positive: Normal bowel sounds, Soft; Negative: Tenderness Extremity Exam: Positive: Normal pulses (LLE), Other (Left foot warm with good cap refill and palpable CP pulse. dressings clean and intact Right AKA); Negative: Edema Psych Exam: Positive: Mood NL, Oriented x 3 Assessment /Plan Problems (1) HTN (hypertension) Status: Chronic Problem Text: favor largely clonidine rebound HTN HD: clon 0.1 BID, carve 3.125 BID, amlo 5 slowly improving now on amlo 10, carve 25 BID, hydral IV prn. Continue current regimen. Anticipate DC pending PT eval. (2) S/P femoral-popliteal bypass surgery Problem Text: Per Dr. Aranda (3) RENZO (acute kidney injury) Status: Acute Problem Text: close to baseline cr ~1.2-1.3 Renal US: Impression: Limited Doppler study as above. Multiple bilateral renal cysts. No evidence of hydronephrosis. (4) Anticoagulant long-term use Status: Chronic Problem Text: INR = 1.27 - he is now on 8 mg daily. We'll continue to monitor. Not entirely certain why he is on Coumadin - Recently established with Dr. Bhandari. The patient reports it was started by an skin carver. Dr. Bhandari thinks it might be for retinal artery occlusion, although this is not his usual indication for anticoagulation. He has bioprosthetic heart valve so should not need anti-coag for this. Because we don't have the full information we will assume he was receiving appropriate care and continue anticoagulating him with goal INR 2-3 while we continue to look into this situation. If we determine anticoagulation is unnecessary we will stop at that time. (5) Severe peripheral arterial disease Status: Chronic Response to Treatment: Stable Problem Text: Recently had femoropopliteal bypass with Dr. Amaya. (6) Hypercholesteremia Status: Chronic Problem Text: We have increased his atorvastatin to 40 mg considering his known PVD. (7) H/O aortic valve replacement Status: Chronic Problem Text: s/p bioprosthetic valve replacement Plan/VTE VTE Prophylaxis Ordered?: Yes (anticoagulated with Coumadin) Plan Therapy: PT VS, I&O, 24H, Fishbone Vital Signs/I&O Vital Signs Date Time Temp Pulse Resp B/P (MAP) Pulse Ox O2 Delivery O2 Flow Rate FiO2 05/29/19 08:32 85 180/90 05/29/19 08:00 97.0 16 98 Room Air 05/24/19 14:00 0.0 I&O- Last 24 Hours up to 6 AM 05/29/19 06:00 Intake Total 2340 ml Output Total 2100 ml Balance 240 ml Laboratory Data 24H LABS Laboratory Tests 2 05/29/19 05:51: Immature Granulocyte % (Auto) 2.5, Neutrophils (%) (Auto) 64.0, Lymphocytes (%) (Auto) 15.4L, Monocytes (%) (Auto) 9.9H, Eosinophils (%) (Auto) 7.4H, Basophils (%) (Auto) 0.8, Neutrophils # (Auto) 6.2, Lymphocytes # (Auto) 1.5, Monocytes # (Auto) 1.0H, Eosinophils # (Auto) 0.7H, Basophils # (Auto) 0.1, Nucleated Red Blood Cells % (auto) 0.0 CBC/BMP Laboratory Tests 05/29/19 05:51 Amy Yee WOOL TAMPER May 29, 2019 10:00
[2019-05-29 11:09] LABS: CALCIUM LEVEL 8.4 MG/DL (8.8-10.2); CREATININE FOR GFR 1.78 MG/DL (0.70-1.30); GLOMERULAR FILTRATION RATE 41.7 (>49); POTASSIUM SERUM 3.7 MEQ/L (3.5-5.1)
[2019-05-29 12:00] VITALS: BP 140/80
[2019-05-29] MEDS: PERCOCET 5MG/325MG TAB PO PRN ×2 (13:13→20:56)
--- NOTE | 2019-05-29 15:29 | IPNPDOC ---
Text Note Date of Service The patient was seen on 05/29/19. NOTE Vascular surgery. Dr. Amaya The patient is a 59-year-old male with history of right lower extremity PAD status post right lower extremity AKA, with history of progressive atherosclerosis of the left lower extremity left distal external iliac artery and common femoral artery endarterectomy with patch angioplasty, left femoral to above knee popliteal artery bypass with in situ saphenous vein 05/23/[address] Amaya. The patient is awake and alert resting in bed. Family at bedside. The patient states his pain has been reasonably controlled. The patient states pain in the left foot is improved. The patient is afebrile. Dressings are intact over surgical sites left lower extremity. Dressings are removed, the patient's wounds are thoroughly cleaned, some irritation from tape noted. Dressings are replaced with dry gauze, kerlix is applied with avoiding applying excessive tape to the patient's skin. The left foot is warm to touch with good capillary refill. There are strong Doppler signals over the bypass, DP and PT. Continue with pain control. The patient remains on Percocet 1-2 tabs as needed, oxycodone for breakthrough pain and Xanax if needed. Continue with wound care daily. PT/OT. ARU screen. Coumadin. Statin. Continue to follow closely. VS,Fishbone, I+O VS, Fishbone, I+O Laboratory Tests 05/29/19 05:51 05/29/19 10:08 Vital Signs Date Time Temp Pulse Resp B/P (MAP) Pulse Ox O2 Delivery O2 Flow Rate FiO2 05/29/19 13:45 18 05/29/19 12:00 97.6 86 140/80 (100) 100 Room Air 05/24/19 14:00 0.0 I&O- Last 24 Hours up to 6 AM 05/29/19 05:59 Intake Total 2940 ml Output Total 2500 ml Balance 440 ml Lolis Ford May 29, 2019 15:28
[2019-05-29] MEDS: POTASSIUM CHLORIDE 10 MEQ SR TABLET PO SCH ×3 (15:34→20:56)
[2019-05-29 16:00] VITALS: BP 160/80
[2019-05-29] MEDS: WARFARIN SOD 4 MG TAB PO SCH (17:31)
[2019-05-29 20:00] VITALS: BP 160/80
--- NOTE | 2019-05-29 20:10 | IPN ---
DATE: 05/29/2019 CARDIOLOGY PROGRESS NOTE SUBJECTIVE: The patient claims to be in good spirits and is happy with his peripheral vascular intervention. Despite impressive blood pressures, has remained free of chest discomfort, shortness of breath or lightheadedness. OBJECTIVE: Pleasant, late middle-aged male who lay comfortably with the head of the bed elevated 30 degrees. Heart rate 72 beats per minute (bpm) and regular, blood pressure 178/96 supine, 164/92 sitting with legs dependent, respiratory rate is 16, oxygen saturation (O2 saturation) 96% on room air. Afebrile. Weight is 227 pounds, and this has been stable the past several days. Normal oral moisture. No central cyanosis. Trachea midline. Neck veins were at 2 cm above the sternal angle. Slightly increased anteroposterior chest diameter with well-healed sternotomy incision, adequate chest expansion with good air entry over both lung redd and no abnormal pulmonary adventitious sounds. Apical impulse not palpable. Heart sounds somewhat distant but fairly crisp prosthetic valve closure, faint systolic murmur over the right base. No diastolic murmur. Brisk carotid upstroke and increased volume. Has no dependent edema. Blood work: Hemoglobin today is 12.9 and essentially stable. Normal white blood cell count and platelet count. PT/INR 20.6/1.8. Electrolyte balance with potassium 3.7, down from 4.2 over the past few days. Bicarbonate essentially stable at 32, BUN and creatinine have essentially been stable as well. IMPRESSION/PLAN: 1. Hypertensive heart disease (benign without heart failure): No symptoms or signs of congestion despite his impressive blood pressure measurements on combination medical therapy. At this point, I have not changed his carvedilol 50 mg twice a day, amlodipine 10 mg daily, and furosemide 20 mg daily, but have increased his hydralazine to 50 mg every 8 hours. With his soft potassium, I have given him KCl by mouth 20 mEq four times a day for four doses. Followup chemistry will be obtained in the morning. 2. Aortic valve disorder (nonrheumatic)/post aortic valve replacement (bioprosthetic): No symptoms or signs of endocarditis. Prosthetic closure appears to be brisk with no insufficiency murmur. 3. Abnormal EKG: Last available EKG was April 04, 2018 and shows sinus rhythm at 64 bpm related to left ventricular diastolic dysfunction and small limb voltages in keeping with his long smoking history. Strain pattern also related to his hypertension and aortic valve disorder. This appearance was similar to September 12, 2017. As mentioned, a followup tracing will be obtained tomorrow morning. 4. COPD: Despite his current dosage of beta nani he denies shortness of breath and does not have worsening expiratory rhonchi. Will continue with present carvedilol therapy. I will continue to follow him closely with you for the time being and appreciate the opportunity to participate in his care. GENO
[2019-05-29] MEDS: **hydrALAZINE** 50 MG TAB PO SCH (20:57)
[2019-05-30] VITALS: BP 138/65
[2019-05-30] MEDS: oxyCODONE 5MG TAB PO PRN ×2 (00:37→14:32)
[2019-05-30 04:00] VITALS: BP 158/80
[2019-05-30] MEDS: **hydrALAZINE** 50 MG TAB PO SCH ×2 (06:02→14:00)
[2019-05-30] MEDS: SLF 3 ML SYR IV SCH ×2 (06:02→14:32)
[2019-05-30 06:35] LABS: BASO # 0.1 10^3/uL (0.0-0.2); BASO % 1.2 % (0.0-1.0); EOS # 0.7 10^3/uL (0.0-0.5); EOS % 6.6 % (0.0-3.0); HEMATOCRIT 38.7 % (42.0-52.0); HEMOGLOBIN 12.4 g/dl (13.5-17.5); LYMPH # 1.8 10^3/uL (1.5-5.0); LYMPH % 17.2 % (24.0-44.0); MEAN CORPUSCULAR HEMOGLOBIN 30.3 pg (27.0-33.0); MEAN CORPUSCULAR VOLUME 94.6 fl (80.0-96.0); MONO # 1.1 10^3/uL (0.0-0.8); MONO % 10.4 % (0.0-5.0); NEUTROPHILS # 6.3 10^3/uL (1.5-8.5); NEUTROPHILS % 60.4 % (36.0-66.0); PLATELET COUNT, AUTOMATED 234 10^3/uL (150-450); RED BLOOD COUNT 4.09 10^6/uL (4.30-6.10); WHITE BLOOD COUNT 10.4 10^3/uL (4.0-10.0)
[2019-05-30 07:01] LABS: BLOOD UREA NITROGEN 30 MG/DL (7-18); CALCIUM LEVEL 8.3 MG/DL (8.8-10.2); CARBON DIOXIDE LEVEL 27 MEQ/L (21-32); CHLORIDE LEVEL 105 MEQ/L (98-107); CREATININE FOR GFR 1.88 MG/DL (0.70-1.30); GLOMERULAR FILTRATION RATE 39.2 (>49); GLUCOSE, FASTING 86 MG/DL (70-100); POTASSIUM SERUM 3.9 MEQ/L (3.5-5.1); SODIUM LEVEL 138 MEQ/L (136-145); TROPONIN I < 0.02 NG/ML (< 0.10)
[2019-05-30 08:00] VITALS: BP 160/63
[2019-05-30] MEDS: GABAPENTIN 400 MG CAP PO SCH ×3 (08:00→20:43)
[2019-05-30] MEDS: SENNA 8.6 MG TAB (SENOKOT) PO SCH ×2 (08:00→20:43)
[2019-05-30] MEDS: amLODIPine 10 MG TAB PO SCH (08:00)
[2019-05-30] MEDS: ATORVASTATIN 20 MG TAB PO SCH (08:00)
[2019-05-30] MEDS: DULoxetine 30 MG CAP (CYMBALTA) PO SCH ×2 (08:00→20:43)
[2019-05-30] MEDS: POTASSIUM CHLORIDE 10 MEQ SR TABLET PO SCH (08:00)
[2019-05-30] MEDS: CARVedilol 12.5 MG TAB PO SCH ×2 (08:01→20:45)
[2019-05-30] MEDS: MIRALAX *UNIT DOSE* 17GM PACKET PO SCH (08:01)
--- NOTE | 2019-05-30 08:24 | IPNPDOC ---
Subjective Date Seen The patient was seen on 05/30/19. Subjective Chief Complaint/HPI PAD Events since last encounter BP improved with medication adjustments made by cardiology. Patient denies c/o. He participated with PT yesterday. not yet safe for DC home. Constitutional: Denies: Chills, Fever, Night Sweats Pulmonary: Denies: Dyspnea, Cough Cardiovascular: Denies: Chest Pain, Palpitations, Orthopnea, Paroxysmal Noc. Dyspnea, Lt Headedness Psych: Reports: Mood Normal; Denies: Depression, Memory Issues Objective Physical Examination General Exam: Positive: Alert, Cooperative, No Acute Distress Eye Exam: Positive: Conjunctiva & lids normal; Negative: Sclera icteric ENT Exam: Positive: Mucous membr. moist/pink Neck Exam: Negative: Lymphadenopathy Chest Exam: Positive: Clear to auscultation; Negative: Rales, Rhonchi, Wheezing Heart Exam: Positive: Rate Normal, Regular Rhythm Abdomen Exam: Positive: Normal bowel sounds, Soft; Negative: Tenderness Extremity Exam: Positive: Normal pulses (LLE), Other (Left foot warm with good cap refill and palpable CP pulse. dressings clean and intact Right AKA); Negative: Edema Psych Exam: Positive: Mood NL, Oriented x 3 Assessment /Plan Problems (1) HTN (hypertension) Status: Chronic Problem Text: slowly improving now on amlo 10, carve 25 BID, hydral IV prn. Continue current regimen. Anticipate DC pending PT eval. (2) S/P femoral-popliteal bypass surgery Problem Text: Per Dr. Aranda (3) RENZO (acute kidney injury) Status: Acute Problem Text: close to baseline cr ~1.2-1.3 Renal US: Impression: Limited Doppler study as above. Multiple bilateral renal cysts. No evidence of hydronephrosis. (4) Anticoagulant long-term use Status: Chronic Problem Text: INR = 1.27 - he is now on 8 mg daily. We'll continue to monitor. Not entirely certain why he is on Coumadin - Recently established with Dr. Bhandari. The patient reports it was started by an discharge planner. Dr. Bhandari thinks it might be for retinal artery occlusion, although this is not his usual indication for anticoagulation. He has bioprosthetic heart valve so should not need anti-coag for this. Because we don't have the full information we will assume he was receiving appropriate care and continue anticoagulating him with goal INR 2-3 while we continue to look into this situation. If we determine anticoagulation is unnecessary we will stop at that time. (5) Severe peripheral arterial disease Status: Chronic Response to Treatment: Stable Problem Text: Recently had femoropopliteal bypass with Dr. Amaya. (6) Hypercholesteremia Status: Chronic Problem Text: We have increased his atorvastatin to 40 mg considering his known PVD. (7) H/O aortic valve replacement Status: Chronic Problem Text: s/p bioprosthetic valve replacement Plan/VTE VTE Prophylaxis Ordered?: Yes (anticoagulated with Coumadin) Plan Therapy: PT VS, I&O, 24H, Fishbone Vital Signs/I&O Vital Signs Date Time Temp Pulse Resp B/P (MAP) Pulse Ox O2 Delivery O2 Flow Rate FiO2 05/30/19 06:02 158/80 05/30/19 04:00 96.0 69 18 100 Room Air 05/24/19 14:00 0.0 I&O- Last 24 Hours up to 6 AM 05/30/19 06:00 Intake Total 1308 ml Output Total 920 ml Balance 388 ml Laboratory Data 24H LABS Laboratory Tests 2 05/29/19 10:08: Anion Gap 6L, Glomerular Filtration Rate 41.7L, Calcium Level 8.4L 05/30/19 06:03: Anion Gap 6L, Glomerular Filtration Rate 39.2L, Calcium Level 8.3L, Immature Granulocyte % (Auto) 4.2H, Neutrophils (%) (Auto) 60.4, Lymphocytes (%) (Auto) 17.2L, Monocytes (%) (Auto) 10.4H, Eosinophils (%) (Auto) 6.6H, Basophils (%) (Auto) 1.2H, Neutrophils # (Auto) 6.3, Lymphocytes # (Auto) 1.8, Monocytes # (Auto) 1.1H, Eosinophils # (Auto) 0.7H, Basophils # (Auto) 0.1, Nucleated Red Blood Cells % (auto) 0.0, Troponin I < 0.02 CBC/BMP Laboratory Tests 05/29/19 10:08 05/30/19 06:03 Amy YeeP May 30, 2019 08:24
--- NOTE | 2019-05-30 09:32 | IPNPDOC ---
Text Note Date of Service The patient was seen on 05/30/19. NOTE Vascular surgery. Dr. Amaya The patient is a 59-year-old male with history of right lower extremity PAD status post right lower extremity AKA, with history of progressive atherosclerosis of the left lower extremity left distal external iliac artery and common femoral artery endarterectomy with patch angioplasty, left femoral to above knee popliteal artery bypass with in situ saphenous vein 05/23/[address] Amaya. The patient is awake and alert, sitting on side of bed eating breakfast. The patient states his pain has been reasonably controlled. The patient states pain in the left foot is improved. The patient is afebrile. Dressings are intact over surgical sites left lower extremity. Dressings are removed, the patient's wounds are thoroughly cleaned, some previous irritation from tape noted. Dressings are replaced with dry gauze, and paper tape applied with avoiding applying excessive tape to the patient's skin. The left foot is warm to touch with good capillary refill. There are strong Doppler signals over the bypass, DP and PT. Continue with pain control. Continue with wound care daily. Plan to leave darrion in place for 17-21 days. PT/OT. ARU screen. Coumadin. Statin. BP control as per primary service/cardiology. Continue to follow closely. VS,Fishbone, I+O VS, Fishbone, I+O Laboratory Tests 05/29/19 10:08 05/30/19 06:03 Vital Signs Date Time Temp Pulse Resp B/P (MAP) Pulse Ox O2 Delivery O2 Flow Rate FiO2 05/30/19 08:00 97.8 66 18 160/63 (95) 95 Room Air 05/24/19 14:00 0.0 I&O- Last 24 Hours up to 6 AM 05/30/19 06:00 Intake Total 1308 ml Output Total 920 ml Balance 388 ml Lolis Ford May 30, 2019 09:32
[2019-05-30] MEDS: PERCOCET 5MG/325MG TAB PO PRN ×2 (11:38→18:23)
[2019-05-30 12:00] VITALS: BP 122/78
[2019-05-30] MEDS: WARFARIN SOD 4 MG TAB PO SCH (16:42)
--- NOTE | 2019-05-30 17:17 | ECGEPIP ---
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
[2019-05-30 22:00] VITALS: BP 136/77
[2019-05-31] MEDS: **hydrALAZINE** 50 MG TAB PO SCH ×2 (00:39→05:54)
[2019-05-31] MEDS: SLF 3 ML SYR IV SCH ×3 (00:40→11:06)
[2019-05-31 06:00] VITALS: BP 138/82
[2019-05-31 06:25] LABS: BASO # 0.1 10^3/uL (0.0-0.2); BASO % 0.7 % (0.0-1.0); EOS # 0.8 10^3/uL (0.0-0.5); HEMATOCRIT 36.7 % (42.0-52.0); LYMPH # 1.6 10^3/uL (1.5-5.0); MEAN CORPUSCULAR HEMOGLOBIN 30.8 pg (27.0-33.0); MEAN CORPUSCULAR HGB CONC 32.7 g/dl (32.0-36.5); MEAN CORPUSCULAR VOLUME 94.1 fl (80.0-96.0); MONO % 10.1 % (0.0-5.0); NEUTROPHILS # 6.2 10^3/uL (1.5-8.5); NEUTROPHILS % 62.8 % (36.0-66.0); PLATELET COUNT, AUTOMATED 235 10^3/uL (150-450); WHITE BLOOD COUNT 9.8 10^3/uL (4.0-10.0)
[2019-05-31] MEDS: DULoxetine 30 MG CAP (CYMBALTA) PO SCH (07:33)
[2019-05-31] MEDS: GABAPENTIN 400 MG CAP PO SCH (07:33)
[2019-05-31] MEDS: ATORVASTATIN 20 MG TAB PO SCH (07:34)
[2019-05-31] MEDS: amLODIPine 10 MG TAB PO SCH (07:34)
[2019-05-31] MEDS: PERCOCET 5MG/325MG TAB PO PRN (07:34)
[2019-05-31] MEDS: SENNA 8.6 MG TAB (SENOKOT) PO SCH (07:34)
[2019-05-31 07:35] VITALS: BP 138/82
[2019-05-31] MEDS: CARVedilol 12.5 MG TAB PO SCH (07:35)
[2019-05-31] MEDS: MIRALAX *UNIT DOSE* 17GM PACKET PO SCH (07:35)
[2019-05-31] MEDS ORDERED: HYDR50TA PO (08:07)
[2019-05-31] MEDS ORDERED: CARV12.5 PO (08:07)
[2019-05-31] MEDS ORDERED: AMLO10TA5 PO (08:07)
[2019-05-31] MEDS ORDERED: ATOR1TAB21 PO (08:07)
[2019-05-31 08:12] LABS: INR 2.3; PROTHROMBIN TIME 25.1 SECONDS (11.8-14.0)
--- NOTE | 2019-05-31 09:16 | DSES ---
DATE OF ADMISSION: 05/23/2019 DATE OF DISCHARGE: _05/31/19 PRINCIPAL DIAGNOSIS: Ischemia left lower extremity. PRINCIPAL PROCEDURE: Treatment of peripheral arterial disease with left distal external iliac artery and common femoral artery endarterectomy with patch angioplasty, left femoral to above-knee popliteal artery bypass with saphenous vein 05/23/2019, Dr. Sigrid Amaya. SECONDARY DIAGNOSES: 1. Hypertension. 2. Acute kidney injury. 3. Long-term anticoagulation use. 4. Hyperlipidemia. 5. History of bioprosthetic aortic valve replacement. HISTORY: The patient admitted for peripheral arterial disease and ischemia of his remaining leg, status post right above-knee amputation (AKA) for peripheral arterial disease. Details in history and physical from admission. HOSPITAL COURSE: He was admitted to a medical bed. Surgical intervention as noted above. Followed daily by vascular surgery. Fletcher stable for discharge today. On the day of discharge, his blood pressure is well controlled. He has a good pulse by examination and by Doppler. The left foot is warm, and the wounds look intact without signs of infection. His white count is 9.8, hemoglobin 12, platelets 233. International normalized ratio (INR) is pending today. Sodium 138, potassium 3.9, BUN 30, creatinine 1.8, glucose 86. Renal ultrasound done 05/27/2019 for acute kidney injury showed no hydronephrosis. Doppler study was limited. No sign of stenosis, but it was limited. DISPOSITION: Anticipate discharge today after an INR comes back. He will followup with his primary care provider, Dr. Leora Guerra, in the [place] office in 1 week. He will followup with Dr. Amaya per her office. His blood pressure was significantly elevated during the hospitalization. Medications were adjusted, particularly the addition of hydralazine and an escalating dose of Cymbalta. DISCHARGE MEDICATIONS: - albuterol two puffs every 4 hours as needed - alprazolam 0.25 mg nightly as needed - amlodipine 10 mg daily (new dose) - carvedilol 50 mg twice a day (new dose) - duloxetine 30 mg twice a day - gabapentin 800 mg three times a day - oxycodone 5/acetaminophen 325 every 6 hours as needed for pain - trazodone 150 mg nightly for sleep - warfarin currently 8 mg daily (INR pending, and this might need to be adjusted, in which case I will dictate an addendum.) - hydralazine 50 mg every 8 hours - atorvastatin 40 mg daily (statin therapy initiated during this hospitalization) He has been taken off clonazepam, which he has not needed in the hospital. - clonidine 0.1 mg three times a day - doxycycline - ibuprofen These have all been discontinued. His INR is pending; and if there is a change in the warfarin dose, I will dictate an addendum. He will need to have his protime checked in our office in 2 days on 06/02/2019. He will have to have his protime checked in the office. He has a prothrombin time (PT)/international normalized ratio (INR) checked in the [place] office tomorrow. He understands the importance of following up on this. GENO
[2019-05-31] MEDS: oxyCODONE 5MG TAB PO PRN (10:20)
== END 2019-05-31 13:10 | disposition home health service (06) | DRG 253 ==
LOC: M OR 11:49 → M MSPAV 05-24 00:05 → M PCU 05-27 00:14 → M MS5PR 05-30 14:05
PROVIDERS: ADMIT Surgery Vascular Surgery; ATTEND Family Medicine
PROC: 041K0JL Bypass Right Femoral Artery to Popliteal Artery with Synthetic Substitute, Open Approach (ICD-10-PCS; principal; 2019-05-23 14:00)
DX: I70.222 Atherosclerosis of native arteries of extremities with rest pain, left leg (principal); N17.9 Acute kidney failure, unspecified; J44.9 Chronic obstructive pulmonary disease, unspecified; I10 Essential (primary) hypertension; Z79.01 Long term (current) use of anticoagulants; E78.5 Hyperlipidemia, unspecified; Z95.2 Presence of prosthetic heart valve; Z89.611 Acquired absence of right leg above knee; Z79.899 Other long term (current) drug therapy; I08.2 Rheumatic disorders of both aortic and tricuspid valves; Z86.73 Personal history of transient ischemic attack (TIA), and cerebral infarction without residual deficits; F32.9 Major depressive disorder, single episode, unspecified

== ENCOUNTER → 2019-06-01 | Outpatient (REF) | payer MEDICARE, MEDICAID ==
[~2019-06-01] MED LIST changes: +CARV12.5 PO; +HYDR50TA PO; -LR 1,000 ML IV ONE; -ceFAZolin SOD 2 GM in IV 1 EA IV ONE
[2019-06-01 13:29] LABS: INR 2.73; PROTHROMBIN TIME 28.8 SECONDS (11.8-14.0)
== END ==
LOC: M LABDRWAD 12:26
PROVIDERS: ATTEND Family Medicine
DX: Z79.01 Long term (current) use of anticoagulants (principal)

== ENCOUNTER → 2019-06-14 | Outpatient (REF) | payer MEDICARE, MEDICAID ==
[2019-06-14 18:53] LABS: INR 0.98; PROTHROMBIN TIME 12.7 SECONDS (11.8-14.0)
== END ==
LOC: M SHH 17:55
PROVIDERS: ATTEND Family Medicine
DX: Z79.01 Long term (current) use of anticoagulants (principal)

== ENCOUNTER → 2019-06-25 | Outpatient (REF) | payer MEDICARE, MEDICAID ==
[~2019-06-25] MED LIST changes: -TRAZ10TA PO; +TRAZ1TAB12 PO
[2019-06-25 15:32] LABS: INR 1.72; PROTHROMBIN TIME 19.9 SECONDS (11.8-14.0)
== END ==
LOC: M SHH 14:50
PROVIDERS: ATTEND Family Medicine
DX: Z79.01 Long term (current) use of anticoagulants (principal)

== ENCOUNTER → 2019-07-20 | Outpatient (CLI) | payer MEDICARE, MEDICAID ==
--- NOTE | 2019-07-20 14:54 | REP ---
Left lower extremity arterial Doppler ultrasound: History: Patient status post left lower extremity bypass graft May 23, 2019. Superficial femoral artery to popliteal artery bypass graft. Findings: Extensive plaquing is seen in the left leg. Patent left SFA and popliteal artery graft is seen. Monophasic waveforms are observed at and distal to the popliteal artery in the left lower extremity. The [place] superficial femoral artery is occluded. There is an origin stenosis in the profunda. There is evidence of a small Stokes's cyst. Ankle brachial index is 0.88. The vessels are somewhat calcified however. Velocity chart insitu left fem-pop graft: SFA anastomosis 81/257 cm/S Proximal thigh is 61 Mid thigh 56/163 Distal 65 Popliteal anastomoses 64/89 Left lower extremity arterial Doppler velocity chart: Left CF A 161/68 cm/S Profunda 215 Proximal SFA 24/occluded Mid SFA occluded Distal SFA occluded Popliteal 78/36 Proximal AT A 83 Tibioperoneal trunk 74 Proximal [employer] 28 Distal [employer] 48 Distal AT A 828 Electronically Signed by Ricky Rendon MD 07/20/2019 02:46 P
== END ==
LOC: M RAD 10:24
PROVIDERS: ATTEND Surgery Vascular Surgery
DX: I70.219 Atherosclerosis of native arteries of extremities with intermittent claudication, unspecified extremity (principal)

== ENCOUNTER → 2019-07-31 | Outpatient (CLI) | payer MEDICARE, MEDICAID ==
--- NOTE | 2019-08-02 00:14 | ECWPNPC ---
PATIENT NAME: NICOLASA BURNETT : 1960 GENDER: MALE VISIT DATE: 07/31/2019 DISCHARGE DATE: 07/31/19 1218 VISIT LOCKED DATE TIME: PHYSICIAN: GIANNI DOS SANTOS RESOURCE: GIANNI DOS SANTOS REASON FOR APPOINTMENT 1. RIGHT LEG/STUMP HISTORY OF PRESENT ILLNESS HISTORY OF PRESENT ILLNESS: HERE FOR F/U OF CHRONIC RIGHT LEG PHANTOM PAIN.RATING PAIN VAS 8/10.FINDS CURRENT CHRONIC PAIN MEDICATION SOMEWHAT EFFECTIVE..HE WAS INFORMED THAT HE CANT USE MARIJUANA CONCURRENTLY WITH NARCOTIC PAIN MEDICATION.URINE TOX DONE AT LAST VISIT IS REVIEWED WITH PATIENT AND IS SHOWING POSITIVE FOR MARIJUANA.STATES HE USES MARIJUANA FOR APETITE IMPROVEMENT AND PAIN CONTROL.STOPPED LYRICA DUE TO VIVID DREAMS AND LOOSE STOOLS.HAD ANGIOPLASTY AND BYPASS LEFT FEMORAL ARTERY ON 05/24/19. PAIN THE PATIENT DESCRIBES THE PAIN... FALL RISK SCREENING: SCREENING :NO FALLS REPORTED IN THE LAST YEAR CURRENT MEDICATIONS TAKING ATORVASTATIN CALCIUM 40 MG TABLET TAKE ONE TABLET BY MOUTH EVERY DAY , NOTES: DUPLICATE TAKING WARFARIN SODIUM 4 MG TABLET 2 TABS ORALLY DAILY TAKING AMLODIPINE BESYLATE 10 MG TABLET ORALLY DAILY TAKING DULOXETINE HCL 30 MG CAPSULE DELAYED RELEASE PARTICLES 1 CAPSULE ORALLY TWICE A DAY TAKING GABAPENTIN 800 MG TABLET 1 CAP ORALLY THREE TIMES DAILY TAKING ALBUTEROL SULFATE HFA 108 (90 BASE) MCG/ACT AEROSOL SOLUTION 2 PUFFS NEEDED FOR WHEEZING INHALATION EVERY 4- 6 HRS TAKING CARVEDILOL 25 MG TABLET 2 TABLET ORALLY BID TAKING WARFARIN SODIUM 1 MG TABLET 1 TABLET ORALLY DAILY MWF TAKING WARFARIN SODIUM 6 MG TABLET 1 TABLET ORALLY ONCE A DAY //TUE TAKING HYDRALAZINE HCL 50 MG TABLET TAKE ONE TABLET BY MOUTH EVERY 8 HOURS TAKING TYLENOL 8 HOUR 650 MG TABLET EXTENDED RELEASE 2 TABLETS NEEDED ORALLY EVERY 8 HRS TAKING FINASTERIDE 5 MG TABLET 1 TABLET ORALLY ONCE A DAY NOT-TAKING ATORVASTATIN CALCIUM 20 MG TABLET 2 TABLET ORALLY DAILY, NOTES: DOSAGE CHANGE NOT-TAKING OXYCODONE-ACETAMINOPHEN 5-325 MG TABLET 1 TABLET NEEDED ORALLY EVERY 6 HRS, NOTES: GIANNI DOS SANTOS NOT-TAKING CARVEDILOL 25 MG TABLET TAKE TWO TABLETS BY MOUTH TWICE A DAY , NOTES: DUPLICATE NOT-TAKING ALPRAZOLAM 0.25 MG TABLET 1 TABLET ORALLY AT BEDTIME NEEDED NOT-TAKING TRAZODONE HCL 50 MG TABLET 3 TABS ORALLY BEFORE BEDTIME NOT-TAKING LYRICA 200 MG CAPSULE 1 CAPSULE 1 TO 3 HOURS BEFORE BEDTIME ORALLY ONCE A DAY MEDICATION LIST REVIEWED AND RECONCILED WITH THE PATIENT PAST MEDICAL HISTORY DOUBLE BYPASS / HX PAD AND CAD DIVERTICULITIS R AKA FOLLOWING FAILED BKA (FOR PAD) PANCREATITIS (HX OF ETOH) PVD RIGHT CVA HTN BLOOD CLOT X 2 IN RIGHT LEG DEPRESSION COPD BIOPROSTHETIC AORTIC VALVE (DR. PEREZ) COLON CANCER, S/P RESECTION FELT TO HAVE A PFO WITHOUT REPAIR RETINAL ARTERY OBSTRUCTION ALLERGIES N.K.D.A. SURGICAL HISTORY VALVE REPLACEMENT (AORTIC VALVE), ANEURYSM SURGERY 2016 COLON RESECTION FOR CANCER 2015 R BKA DECEMBER 2016 ANGIOPLASTY AMNA LOWER EXTREMITIES JAN 2016 R AKA JAN 2017 ANGIOGRAM 08/2018 BYPASS,ANGIO,STENT 05/23/19 FAMILY HISTORY FATHER: 65 YRS, DIAGNOSED WITH DIABETES, OTHER MALIGNANT NEOPLASM OF UNSPECIFIED SITE MOTHER: ALIVE 79 YRS, OTHER SPECIFIED CONDITIONS INFLUENCING HEALTH STATUS PATERNAL GRAND FATHER: OTHER MALIGNANT NEOPLASM OF UNSPECIFIED SITE MATERNAL GRAND FATHER: HYPERTENSION MATERNAL GRAND MOTHER: HYPERTENSION 3 SISTER(S) - HEALTHY. SOCIAL HISTORY GENERAL: TOBACCO USE ARE YOU A:FORMER SMOKER STATES HE DOESN'T SMOKE; THEN ADMITS TO SMOKING YESTERDAY HOW LONG HAS IT BEEN SINCE YOU LAST SMOKED?1-5 YEARS HIV / HEP-C SCREENING HIV TEST OFFERED TO PATIENT:YES DATE OFFERED:05/17/2019 TEST ACCEPTED:NO HEP-C TEST OFFERED TO PATIENT:YES DATE OFFERED:05/17/2019 REASON:PATIENT DECLINED TEST ACCEPTED:NO REASON:PATIENT DECLINED BROCHURE PROVIDED TO PATIENTYES OTHERS AT HOME: MOTHER. EDUCATION LEVEL OF EDUCATION:HIGH SCHOOL DIET: NO ADDED SALT. LANGUAGE LANGUAGES SPOKEN:[place] ISLANDER DOMESTIC VIOLENCE DO YOU FEEL SAFE IN YOUR ENVIRONMENT?YES RECREATIONAL DRUG USE DRUG USE?NO EXERCISE: WHEELCHAIR OR WALKER. LEARNING BARRIERS / SPECIAL NEEDS CHANGE FROM LAST VISIT?NO BARRIERS TO LEARNING?NO HEARING IMPAIRED?NO VISION IMPAIRED?YES :CORRECTIVE LENSES COGNITIVELY IMPAIRED?NO READINESS TO LEARN?YES LEARNING PREFERENCES?YES PREFERS WRITTEN MATERIAL LEARNING CAPABILITIES PRESENT?YES EMOTIONAL BARRIERS?NO SPECIAL DEVICES?YES :WALKER, WHEELCHAIR, OTHER SENIOR BIOINFORMATICS SCIENTIST NEEDED?NO PAIN CLINIC PFS, CLERGY, PUBLIC HEALTH REFERRALS PFS REFERRAL NEEDED?NO CLERGY REFERRAL NEEDED?NO PUBLIC HEALTH REFERRAL NEEDED?NO WAS THE PROVIDER NOTIFIED OF ANY PERTINENT INFO?YES HAS THE PATIENT BEEN EDUCATED REGARDING HIS/HER PLAN OF CARE?YES HAS THE PATIENT BEEN EDUCATED REGARDING PAIN, THE RISK FOR PAIN, THE IMPORTANCE OF EFFECTIVE PAIN MANAGEMENT, AND THE PAIN ASSESSMENT PROCESS?YES LATEX QUESTIONNAIRE LATEX ALLERGY : HAVE YOU EVER DEVELOPED ANY TYPE OF REACTION AFTER HANDLING LATEX PRODUCTS SUCH RUBBER GLOVES, CONDOMS, DIAPHRAGMS, BALLOONS, SOCKS, OR UNDERWEAR?NO LATEX ALLERGY : HAVE YOU EVER DEVELOPED ANY TYPE OF REACTION DURING OR AFTER DENTAL APPOINTMENT, VAGINAL/RECTAL EXAMINATION, SURGICAL PROCEDURE, OR ANY OTHER EXPOSURE?NO DATE ASKED : 08/31/2018 LATEX RISK : HAVE YOU EVER HAD ANY DIFFICULTY BREATHING OR HIVES AFTER EATING OR HANDLING ANY FRUITS, OR VEGETABLES; SUCH KIWI, BANANAS, STONE FRUITS, OR CHESTNUTSNO LATEX RISK : DO YOU HAVE A PREVIOUS PERSONAL HISTORY OF MORE THAN NINE SURGERIES, SPINA BIFIDA, OR REPEATED CATHERIZATIONS? 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 SEXUAL HX HAD SEX IN THE LAST 12 MONTHS (VAGINAL, ORAL, OR ANAL)?NO REVIEWED WITH PATIENT 08/31/18 1320 JSREVIEWED WITH PT 02/27/19 1302 NLJREVIEWED WITH PATIENT 07/31/2019 LAS. HOSPITALIZATION/MAJOR DIAGNOSTIC PROCEDURE CVA 12/2015 SURGERY RELATED REVIEW OF SYSTEMS REVIEWED BY: PROVIDER: GIANNI URIARTE . CONSTITUTIONAL: ANY CHANGE IN YOUR MEDICAL CONDITION? NO . CHILLS NO . FEVER NO . INFECTION: DO YOU HAVE NEW INFECTIONS? NO . DO YOU HAVE HISTORY OF MRSA? NO . MUSCULOSKELETAL: ANY NEW PATTERNS OF PAIN OR NUMBNESS? NO . GASTROENTEROLOGY: ANY NEW CHANGE IN BOWEL CONTROL? PT REPORTS THAT LYRICA GAVE HIM VERY LOOSE STOOLS, AND HAS STOPPED IT. . GENITOURINARY: ANY NEW CHANGE IN BLADDER CONTROL? NO . IS THERE A CHANCE YOU COULD BE ? NO . HEMATOLOGY/LYMPH: DO YOU TAKE ANY BLOOD THINNERS? (FOR EXAMPLE- COUMADIN, PLAVIX, AGGRENOX, PLATEL, PRADAXA, OR XARELTO) YES COUMADIN . WHEN WAS YOUR LAST DOSE? DATE: TIME: . NEUROLOGY: HAVE YOU FALLEN IN THE PAST 12 MONTHS? NO . ANY NEW EXTREMITY NUMBNESS OR WEAKNESS? YES PT REPORTS NEW TINGLING/PAIN IN RIGHT KNEECAP ?R/T SURGERY . CARDIOLOGY: DO YOU HAVE A PACEMAKER OR DEFIBRILLATOR? NO . RESPIRATORY: HAVE YOU BEEN SICK IN THE PAST WEEK? NO . FEVER NO . FLU LIKE SYMPTOMS? NO . COUGH NO . INTEGUMENTARY: DO YOU HAVE ANY RASHES OR OPEN SORES? NO . ALLERGIC/IMMUNO: ARE YOU ALLERGIC TO IV DYE? NO . ANY NEW ALLERGIES? NO . PSYCHIATRIC: DO YOU HAVE THOUGHTS OF HURTING YOURSELF OR SOMEONE ELSE? NO . ARE YOU ABUSED, NEGLECTED, OR IN AN UNSAFE ENVIRONMENT? NO . ENDOCRINOLOGY: ARE YOU DIABETIC? NO . OTHER: DO YOU NEED ANY PRESCRIPTIONS? NO . IF YES, PLEASE LIST: ____ . ANY NEW PROBLEMS WITH YOUR MEDICATIONS? YES PT REPORTS VIVID DREAMS, LOOSE STOOLS ON LYRICA . WHEN DID YOU LAST EAT? ____ . WHEN DID YOU LAST DRINK? ____ . WHAT DID YOU LAST DRINK? ____ . NAME OF PERSON DRIVING YOU HOME? ____ . DO YOU HAVE ANY OTHER QUESTIONS OR CONCERNS NO . VITAL SIGNS WT 222.0 LBS, HT 74", BMI 28.50 INDEX, BP 139/93 MM HG, HR 90 /MIN, RR 18 /MIN, TEMP 98.0 F, OXYGEN SAT % 98%, SAFE IN ENV? (Y/N) YES, NA INITIALS AW 1107, REVIEWED BY: AXEL. EXAMINATION GENERAL EXAMINATION: GENERAL AWAKE,ALERT ,PLEAASANT . PSYCH AFFECT NORMAL . LUNGS: LUNG CASTRO ARE CLEAR TO AUSCULTATION BILATERALLY. GOOD MOVEMENT OF AIR . HEART: S1, S2 IN A REGULAR RATE AND SLIGHT IRREGULAR RHYTHM NOTED.. 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 (PRIMARY) LOW BACK PAIN AT MULTIPLE SITES - M54.5 TREATMENT PHANTOM LIMB SYNDROME WITH PAIN CONTINUE DULOXETINE HCL CAPSULE DELAYED RELEASE PARTICLES, 30 MG, 1 CAPSULE, ORALLY, TWICE A DAY CONTINUE GABAPENTIN TABLET, 800 MG, 1 CAP, ORALLY, THREE TIMES DAILY REFILL OXYCODONE-ACETAMINOPHEN TABLET, 5-325 MG, 1 TABLET NEEDED, ORALLY, Q8H PRN MDD3, 30 DAYS, 90, REFILLS 0, NOTES: GIANNI DOS SANTOS [facility] MRI LUMBAR W/O CONTRAST (CPT 54882)[id number] NOTES: REQUEST STOP ANTICOAGULANT FROM DR ALMENDAREZ FAMILY PRACTICEPATIENT IS INTERESTED IN PALLIATIVE CARE REFERRAL FOR MEDICINE MANAGEMENT. INTERESTED IN TRYING INJECTION THERAPY WITH DR. BALLARD FROM OUR CLINIC. WE WILL REVIEW MRI AND SET UP INTERVENTIONAL THERAPY PLAN AFTER REVIEWING THIS WITH PATIENT AT NEXT VISIT. [facility]:CHRONIC RIGHT STUMP PHANTOM PAIN/LBP LEFT LEG RADICULOPATHY-PVD W LEFT LEG STENTING PROCEDURE CODES FA211 ESTABILISHED PATIENT [facility] CHARGE DISPOSITION & COMMUNICATION FOLLOW UP 4-6WKS (REASON: REIEW MRI) ELECTRONICALLY SIGNED BY CHAPITO HESS ON 08/01/2019 AT 03:35 PM EST DISCLAIMER : THIS IS A VISIT SUMMARY EXTRACTED FROM THE [employer] CHART. IT IS NOT A COPY OF THE [employer] PROGRESS NOTE. GENO
== END ==
LOC: M PAIN 11:00
PROVIDERS: ATTEND Nurse Practitioner Family
DX: G54.6 Phantom limb syndrome with pain (principal); M54.5 Low back pain
CPT/HCPCS: 36415; 80048; 85027; 85610; G0463

== ENCOUNTER → 2019-07-31 | Outpatient (CLI) | payer MEDICARE, MEDICAID ==
[2019-07-31 11:05] LABS: HEMATOCRIT 42.7 % (42.0-52.0); HEMOGLOBIN 13.9 g/dl (13.5-17.5); MEAN CORPUSCULAR HGB CONC 32.6 g/dl (32.0-36.5); PLATELET COUNT, AUTOMATED 245 10^3/uL (150-450); RED BLOOD COUNT 4.64 10^6/uL (4.30-6.10); WHITE BLOOD COUNT 9.5 10^3/uL (4.0-10.0)
[2019-07-31 11:22] LABS: INR 1.71; PROTHROMBIN TIME 19.8 SECONDS (11.8-14.0)
[2019-07-31 11:29] LABS: CALCIUM LEVEL 8.7 MG/DL (8.8-10.2); CREATININE FOR GFR 1.62 MG/DL (0.70-1.30); GLOMERULAR FILTRATION RATE 46.5 (>49); POTASSIUM SERUM 4.1 MEQ/L (3.5-5.1)
== END ==
LOC: M LAB 10:27
PROVIDERS: ATTEND Surgery Vascular Surgery
DX: I70.212 Atherosclerosis of native arteries of extremities with intermittent claudication, left leg (principal)

== ENCOUNTER → 2019-08-13 | Outpatient (CLI) | payer MEDICARE, MEDICAID ==
[~2019-08-13] MED LIST changes: +HEPARIN 1,000 UNITS/ML 10ML VIAL (FOR RADIOLOGY& DIALYSIS ONLY)(J1644-10) As Ordered ONE; +ISOVUE-300 61% 50ML VIAL (Q9967) As Ordered ONE; +ISOVUE-370 76% 100ML VIAL (Q9967) As Ordered ONE; +LIDOCAINE 1% MDV 20ML VIAL As Ordered ONE; +MIDAZOLAM INJ 2 MG/2 ML VIAL (J2250) As Ordered ONE; +fentaNYL 100 MCG/2 ML INJECTION (J3010) As Ordered ONE
[2019-08-13 09:09] LABS: HEMATOCRIT 43.3 % (42.0-52.0); HEMOGLOBIN 14.2 g/dl (13.5-17.5); MEAN CORPUSCULAR HEMOGLOBIN 29.6 pg (27.0-33.0); MEAN CORPUSCULAR HGB CONC 32.8 g/dl (32.0-36.5); MEAN CORPUSCULAR VOLUME 90.4 fl (80.0-96.0); PLATELET COUNT, AUTOMATED 285 10^3/uL (150-450); RED BLOOD COUNT 4.79 10^6/uL (4.30-6.10)
[2019-08-13 09:19] LABS: INR 1.15; PROTHROMBIN TIME 14.4 SECONDS (11.8-14.0)
[2019-08-13 09:31] LABS: CALCIUM LEVEL 8.6 MG/DL (8.8-10.2); CREATININE FOR GFR 1.91 MG/DL (0.70-1.30); GLOMERULAR FILTRATION RATE 38.5 (>49)
--- NOTE | 2019-08-13 12:07 | ROOPDOC ---
[facility] Report Of Operation Report of Operation DATE OF PROCEDURE: 08/13/19 PREPROCEDURE DIAGNOSES: Atherosclerosis of the kaw vessels, left tibial, and possible stenosis left femoropopliteal bypass POSTPROCEDURE DIAGNOSES: Same PROCEDURE: 1. Ultrasound guided access right common femoral artery, aborted due to arterial occlusion 2. Ultrasound-guided antegrade access left common femoral artery SURGEON: Bijan Amaya MD ANESTHESIA: 10 mL lidocaine local anesthesia. Moderate intravenous conscious sedation was supervised by Dr. Amaya. The patient was independent we monitored by registered nurse assigned to the Department of radiology using automated blood pressure, EKG, and pulse oximetry. The detailed sedation record is permanently stored in the hospital information system. The following is a brief sedation record: Start time 11:25, stop time 11:48, Versed 1 mg IV, fentanyl 50 g IV. INDICATION FOR PROCEDURE: This is a very pleasant 59-year-old gentleman who is s tatus post a right femoral endarterectomy and right lower extremity amputation per Dr. King, and also previous bilateral iliac and external iliac stents, and a left common femoral endarterectomy with patch angioplasty and a left femoral- popliteal bypass with in situ vein May [address] Amaya. His follow- up surveillance arterial duplex reveals widely patent common femoral endarterectomy and anastomosis to the in situ vein bypass, concern for possible stenosis in the proximal mid and mid bypass at areas of lysed valves, concern for possible tibial stenosis. Risks benefits and alternatives to an arteriogram of the left lower extremity and possible intervention were explained to the patient knee was agreeable to proceed. Informed consent was obtained. INTERPRETATION: Successful ultrasound-guided antegrade access left common femoral artery. No arteriogram performed. REPORT OF OPERATION: The patient was brought to the angiographic suite in stable condition. His bilateral groins were prepped and draped in sterile fashion. A timeout was performed. Sedation was administered without complication. Local anesthesia was administered to the skin and subcutaneous tissue over the right common femoral artery. Under ultrasound, heavy plaque was noted within the a rtery, but I was hopeful there was still a patent lumen. Unfortunately, after accessing the right common femoral artery, there was no real flow and we could not pass a wire proximally. This was then aborted. We then anesthetized the left skin and subcutaneous tissue over the common femoral artery and ultrasound was used to guide access to the left common femoral artery antegrade. Unfortunately, due to the patient's obesity, we had a fairly steep angle of the artery and could not access proximal enough due to the large protruding abdomen to give us an ankle where we could safely navigate a wire into the bypass graft. Because of the steep angle of the needle, the wire was angled towards the posterior aspect of the artery and the bypass comes off on the anterior aspect of the artery. Unfortunately we were not able to navigate the wire around those tricky angles into the bypass. We tried for about 10 minutes, and it became clear to me that I would need to access the bypass graft directly. Although this can be safe, it is only been 2 months for the vein to have arterialized, it still may be a bit fragile. If we are going to access it with the sheath, I like to first make sure that the stenoses within the graft are serious enough to warrant this. Therefore, we will bring the patient back for CTA and see if it is worthwhile for us to do a second antegrade access into the bypass directly. Also, then I would be able to note how proximal the areas of stenosis are, so we would know if it is even impossible for us to do an antegrade access at the proximal bypass and safely place a sheath proximal enough to be able to treat the stenosis. Otherwise, the patient has adequate perfusion for now. We simply would like to address any potential stenoses that we do not lose the bypass over time. The patient is agreeable to this plan. We removed our access and pressure was held for 10 minutes for good hemostasis. The patient was then taken back to recovery in stable condition. ESTIMATED BLOOD LOSS: Approximately 7 mL. COMPLICATIONS: None. PLAN: We will bring the patient back to clinic to check his access sites and set him up for CTA of the abdomen and pelvis with contrast and left lower extremity runoff. At that to see if there is any significant stenoses on CTA that would warrant an antegrade bypass graft access, and potential intervention. Additionally, I like to see what flow he has into the right lower extremity amputation. Okay to resume home medications and diet. BIJAN AMAYA MD Aug 13, 2019 12:07
[2019-08-13 13:53] VITALS: BP 150/90
== END ==
LOC: M IRPRO 08:08
PROVIDERS: ATTEND Surgery Vascular Surgery
DX: I70.212 Atherosclerosis of native arteries of extremities with intermittent claudication, left leg (principal); J44.9 Chronic obstructive pulmonary disease, unspecified; Z79.01 Long term (current) use of anticoagulants; Z79.899 Other long term (current) drug therapy; Z86.73 Personal history of transient ischemic attack (TIA), and cerebral infarction without residual deficits; Z87.891 Personal history of nicotine dependence; Z89.611 Acquired absence of right leg above knee; Z95.4 Presence of other heart-valve replacement; Z95.5 Presence of coronary angioplasty implant and graft
CPT/HCPCS: 36140; 75710; 80048; 85027; 85610; 99152; 99153; C1894; J1644; J2250; J3010; Q9967

== ENCOUNTER → 2019-08-20 | Outpatient (CLI) | payer MEDICARE, MEDICAID ==
[~2019-08-20] MED LIST changes: -HEPARIN 1,000 UNITS/ML 10ML VIAL (FOR RADIOLOGY& DIALYSIS ONLY)(J1644-10) As Ordered ONE; -ISOVUE-300 61% 50ML VIAL (Q9967) As Ordered ONE; -ISOVUE-370 76% 100ML VIAL (Q9967) As Ordered ONE; -LIDOCAINE 1% MDV 20ML VIAL As Ordered ONE; -MIDAZOLAM INJ 2 MG/2 ML VIAL (J2250) As Ordered ONE; -fentaNYL 100 MCG/2 ML INJECTION (J3010) As Ordered ONE
[2019-08-20 11:31] LABS: HEMATOCRIT 39.9 % (42.0-52.0); HEMOGLOBIN 12.8 g/dl (13.5-17.5); MEAN CORPUSCULAR HEMOGLOBIN 29.8 pg (27.0-33.0); MEAN CORPUSCULAR HGB CONC 32.1 g/dl (32.0-36.5); MEAN CORPUSCULAR VOLUME 92.8 fl (80.0-96.0); PLATELET COUNT, AUTOMATED 240 10^3/uL (150-450); WHITE BLOOD COUNT 8.5 10^3/uL (4.0-10.0)
[2019-08-20 12:41] LABS: CALCIUM LEVEL 8.4 MG/DL (8.8-10.2); CREATININE FOR GFR 1.83 MG/DL (0.70-1.30); GLOMERULAR FILTRATION RATE 40.4 (>49); POTASSIUM SERUM 4.1 MEQ/L (3.5-5.1)
== END ==
LOC: M LAB 10:37
PROVIDERS: ATTEND Physician Assistant
DX: Z01.818 Encounter for other preprocedural examination (principal)

== ENCOUNTER → 2019-08-29 | Outpatient (REF) | payer MEDICARE, MEDICAID ==
[~2019-08-29] MED LIST changes: +CARV25TA PO
[2019-08-29 12:33] LABS: INR 0.9; PROTHROMBIN TIME 11.9 SECONDS (11.8-14.0)
== END ==
LOC: M SFHCADAM 11:33
PROVIDERS: ATTEND Family Medicine
DX: Z79.01 Long term (current) use of anticoagulants (principal)

== ENCOUNTER → 2019-09-07 | Outpatient (REF) | payer MEDICARE, MEDICAID ==
[2019-09-07 12:34] LABS: INR 1.81; PROTHROMBIN TIME 20.7 SECONDS (11.8-14.0)
== END ==
LOC: M SHH 12:12
PROVIDERS: ATTEND Family Medicine
DX: Z79.01 Long term (current) use of anticoagulants (principal)

== ENCOUNTER → 2019-09-13 | Outpatient (REF) | payer MEDICARE, MEDICAID ==
[2019-09-13 12:57] LABS: INR 2.48; PROTHROMBIN TIME 26.7 SECONDS (11.8-14.0)
== END ==
LOC: M SFHCADAM 12:30
PROVIDERS: ATTEND Family Medicine
DX: Z79.01 Long term (current) use of anticoagulants (principal)

== ENCOUNTER → 2019-09-19 | Outpatient (CLI) | payer MEDICARE, MEDICAID ==
--- NOTE | 2019-09-19 12:16 | REP ---
MRI LUMBAR SPINE WITHOUT CONTRAST: HISTORY: Low back pain. No known injury. Phantom limb syndrome with pain. Comparison is made with imaging from CT study abdomen and pelvis April 19, 2019. TECHNIQUE: Sagittal and axial T1- and T2-weighted scans are acquired in the usual fashion with and without fat saturation. Sequences include spin echo, turbo spin-echo, and STIR imaging sequences. FINDINGS: Lumbar vertebral body heights are preserved. There is a bilateral L5 spondylolysis and there is a grade 1 L5-S1 spondylolisthesis measuring 6 mm. This is felt to be unchanged from comparison CT images April 19 2019. Alignment is otherwise normal. Tip of the conus medullaris is normal in position and appearance at T12-L1. There appears to be a large renal cyst on the right partially imaged. Prior CT study showed multiple bilateral renal cysts. At L5-S1, in addition to the spondylolisthesis, there is mild diffuse disc bulging. Mild bilateral foraminal narrowing is seen, right greater than left due to disc bulging and the spondylolisthesis. At L4-5, there is facet hypertrophy bilaterally. Mild diffuse disc bulging is seen. No central canal stenosis or foraminal stenosis is seen. At L3-4, there is diffuse disc bulging and disc space narrowing. There is a left foraminal disc protrusion producing left neural foraminal narrowing. No other disc protrusion is seen. Canal size is borderline. Facet hypertrophy is noted bilaterally. At L2-L3, there is no significant abnormality. The L1-2 disc level is unremarkable as well. IMPRESSION: Degenerative disc and osteoarthritic facet changes at the L5-S1 and to a lesser extent L3-4 and L4-5. There is foraminal narrowing bilaterally at L5-S1 and on the left at L3-4 where there is a foraminal disc protrusion. There is bilateral L5 spondylolysis with grade 1 6 mm L5-S1 spondylolisthesis. Electronically Signed by Ricky Rendon MD 09/19/2019 12:35 P
== END ==
LOC: M RAD 10:28
PROVIDERS: ATTEND Nurse Practitioner Family
DX: G54.6 Phantom limb syndrome with pain (principal); M43.06 Spondylolysis, lumbar region

== ENCOUNTER → 2019-10-01 | Outpatient (CLI) | payer MEDICARE, MEDICAID ==
--- NOTE | 2019-10-03 01:11 | ECWPNPC ---
PATIENT NAME: NICOLAAS BURNETT : 1960 GENDER: MALE VISIT DATE: 10/01/2019 DISCHARGE DATE: 10/01/19 1449 VISIT LOCKED DATE TIME: PHYSICIAN: GIANNI DOS SANTOS RESOURCE: GIANNI DOS SANTOS REASON FOR APPOINTMENT 1. REVIEW MRI HISTORY OF PRESENT ILLNESS HISTORY OF PRESENT ILLNESS: PATIENT HAS AGREED TO TELEPHONE VISIT TODAY. CONTINUES TO SUFFER FROM PHANTOM LIMB PAIN AND LOW BACK PAIN. PAIN HAS BEEN AGGRAVATED OVER THE PAST FEW MONTHS. MRI OF THE LS-SPINE THAT I ORDERED AT HIS LAST VISIT IS REVIEWED TODAY. SHOWING MULTILEVEL DEGENERATIVE CHANGES. WE HAD REQUESTED HE BE OFF OF BLOOD THINNER TO CONSIDER INJECTIONS BUT THE REQUEST TO HIS PHYSICIAN WAS DENIED. HE IS FOLLOWING WITH [facility] AND THEY WERE WAITING ON THEIR OPINION. RATING PAIN LEVEL AN 8/10 VAS. DISCUSSED MEDICATION AND TREATMENT OPTIONS. PAIN THE PATIENT DESCRIBES THE PAIN... FALL RISK SCREENING: SCREENING :NO FALLS REPORTED IN THE LAST YEAR CURRENT MEDICATIONS TAKING WARFARIN SODIUM 4 MG TABLET 2 TABS ORALLY DAILY TAKING AMLODIPINE BESYLATE 10 MG TABLET ORALLY DAILY TAKING ALBUTEROL SULFATE HFA 108 (90 BASE) MCG/ACT AEROSOL SOLUTION 2 PUFFS NEEDED FOR WHEEZING INHALATION EVERY 4- 6 HRS TAKING TYLENOL 8 HOUR 650 MG TABLET EXTENDED RELEASE 2 TABLETS NEEDED ORALLY EVERY 8 HRS TAKING HYDRALAZINE HCL 50 MG TABLET TAKE ONE TABLET BY MOUTH EVERY 8 HOURS ORALLY THREE TIMES DAILY TAKING CARVEDILOL 25 MG TABLET 2 TABLET ORALLY BID TAKING ATORVASTATIN CALCIUM 40 MG TABLET TAKE ONE TABLET BY MOUTH EVERY DAY ORALLY DAILY TAKING OXYCODONE-ACETAMINOPHEN 5-325 MG TABLET 1 TABLET NEEDED ORALLY Q8H PRN MDD3 TAKING GABAPENTIN 800 MG TABLET 1 CAP ORALLY THREE TIMES DAILY TAKING DULOXETINE HCL 30 MG CAPSULE DELAYED RELEASE PARTICLES 1 CAPSULE ORALLY TWICE A DAY TAKING FINASTERIDE 5 MG TABLET 1 TABLET ORALLY ONCE A DAY NOT-TAKING WARFARIN SODIUM 1 MG TABLET 1 TABLET ORALLY DAILY MWF NOT-TAKING WARFARIN SODIUM 6 MG TABLET 1 TABLET ORALLY ONCE A DAY //TUE MEDICATION LIST REVIEWED AND RECONCILED WITH THE PATIENT PAST MEDICAL HISTORY DOUBLE BYPASS / HX PAD AND CAD DIVERTICULITIS R AKA FOLLOWING FAILED BKA (FOR PAD) PANCREATITIS (HX OF ETOH) PVD RIGHT CVA HTN BLOOD CLOT X 2 IN RIGHT LEG DEPRESSION COPD BIOPROSTHETIC AORTIC VALVE (DR. PEREZ) COLON CANCER, S/P RESECTION FELT TO HAVE A PFO WITHOUT REPAIR RETINAL ARTERY OBSTRUCTION ALLERGIES N.K.D.A. SURGICAL HISTORY VALVE REPLACEMENT (AORTIC VALVE), ANEURYSM SURGERY 2016 COLON RESECTION FOR CANCER 2015 R BKA DECEMBER 2016 ANGIOPLASTY AMNA LOWER EXTREMITIES JAN 2016 R AKA JAN 2017 ANGIOGRAM 08/2018 BYPASS,ANGIO,STENT 05/23/19 FAMILY HISTORY FATHER: 65 YRS, DIAGNOSED WITH DIABETES, OTHER MALIGNANT NEOPLASM OF UNSPECIFIED SITE MOTHER: ALIVE 79 YRS, OTHER SPECIFIED CONDITIONS INFLUENCING HEALTH STATUS PATERNAL GRAND FATHER: OTHER MALIGNANT NEOPLASM OF UNSPECIFIED SITE MATERNAL GRAND FATHER: HYPERTENSION MATERNAL GRAND MOTHER: HYPERTENSION 3 SISTER(S) - HEALTHY. SOCIAL HISTORY GENERAL: TOBACCO USE ARE YOU A:FORMER SMOKER STATES HE DOESN'T SMOKE; THEN ADMITS TO SMOKING YESTERDAY HOW LONG HAS IT BEEN SINCE YOU LAST SMOKED?1-5 YEARS LATEX QUESTIONNAIRE LATEX ALLERGY : HAVE YOU EVER DEVELOPED ANY TYPE OF REACTION AFTER HANDLING LATEX PRODUCTS SUCH RUBBER GLOVES, CONDOMS, DIAPHRAGMS, BALLOONS, SOCKS, OR UNDERWEAR?NO LATEX ALLERGY : HAVE YOU EVER DEVELOPED ANY TYPE OF REACTION DURING OR AFTER DENTAL APPOINTMENT, VAGINAL/RECTAL EXAMINATION, SURGICAL PROCEDURE, OR ANY OTHER EXPOSURE?NO LATEX RISK : HAVE YOU EVER HAD ANY DIFFICULTY BREATHING OR HIVES AFTER EATING OR HANDLING ANY FRUITS, OR VEGETABLES; SUCH KIWI, BANANAS, STONE FRUITS, OR CHESTNUTSNO LATEX RISK : DO YOU HAVE A PREVIOUS PERSONAL HISTORY OF MORE THAN NINE SURGERIES, SPINA BIFIDA, OR REPEATED CATHERIZATIONS? NO LATEX RISK : ARE YOU FREQUENTLY EXPOSED TO LATEX PRODUCTS IN YOUR OCCUPATION?NO DATE ASKED : 10/01/2019 ALCOHOL SCREENING DID YOU HAVE A DRINK CONTAINING ALCOHOL IN THE PAST YEAR?NO POINTS0 INTERPRETATIONNEGATIVE RECREATIONAL DRUG USE DRUG USE?NO CAFFEINE CAFFEINE USE?YES 1-2 CUPS PER DAY SEXUAL HX HAD SEX IN THE LAST 12 MONTHS (VAGINAL, ORAL, OR ANAL)?NO HIV / HEP-C SCREENING HIV TEST OFFERED TO PATIENT:YES DATE OFFERED:05/17/2019 TEST ACCEPTED:NO HEP-C TEST OFFERED TO PATIENT:YES DATE OFFERED:05/17/2019 REASON:PATIENT DECLINED TEST ACCEPTED:NO REASON:PATIENT DECLINED BROCHURE PROVIDED TO PATIENTYES HINDUISM [id number] NONE LANGUAGE LANGUAGES SPOKEN:JAPANESE EDUCATION LEVEL OF EDUCATION:HIGH SCHOOL LEARNING BARRIERS / SPECIAL NEEDS CHANGE FROM LAST VISIT?NO BARRIERS TO LEARNING?NO HEARING IMPAIRED?NO VISION IMPAIRED?YES COGNITIVELY IMPAIRED?NO :CORRECTIVE LENSES READINESS TO LEARN?YES LEARNING PREFERENCES?YES PREFERS WRITTEN MATERIAL LEARNING CAPABILITIES PRESENT?YES EMOTIONAL BARRIERS?NO SPECIAL DEVICES?YES :WALKER, WHEELCHAIR, OTHER BUTTON TUFTER NEEDED?NO DOMESTIC VIOLENCE DO YOU FEEL SAFE IN YOUR ENVIRONMENT?YES 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 DIET: NO ADDED SALT. EXERCISE: WHEELCHAIR OR WALKER. OTHERS AT HOME: MOTHER. NEW PATIENT PAIN DIARY TODAY'S VISITNOTES 10/01/2019 PATIENT DESCRIBES PAIN :BURNING, HAVE IT ALL THE TIME, STABBING, THROBBING, OTHER NUMBNESS, TINGLING FROM 0-10, WHAT LEVEL IS YOUR PAIN TODAY?8 PAIN CLINIC PFS, CLERGY, PUBLIC HEALTH REFERRALS PFS REFERRAL NEEDED?NO CLERGY REFERRAL NEEDED?NO PUBLIC HEALTH REFERRAL NEEDED?NO WAS THE PROVIDER NOTIFIED OF ANY PERTINENT INFO?YES HAS THE PATIENT BEEN EDUCATED REGARDING HIS/HER PLAN OF CARE?YES HAS THE PATIENT BEEN EDUCATED REGARDING PAIN, THE RISK FOR PAIN, THE IMPORTANCE OF EFFECTIVE PAIN MANAGEMENT, AND THE PAIN ASSESSMENT PROCESS?YES ADVANCE DIRECTIVE ADVANCE DIRECTIVE DISCUSSED WITH PATIENT:YES HCP - ANIL BURNETT (SISTER) HOSPITALIZATION/MAJOR DIAGNOSTIC PROCEDURE CVA 12/2015 SURGERY RELATED REVIEW OF SYSTEMS REVIEWED BY: PROVIDER: GIANNI URIARTE . CONSTITUTIONAL: ANY CHANGE IN YOUR MEDICAL CONDITION? NO . CHILLS NO . FEVER NO . INFECTION: DO YOU HAVE NEW INFECTIONS? NO . DO YOU HAVE HISTORY OF MRSA? NO . MUSCULOSKELETAL: ANY NEW PATTERNS OF PAIN OR NUMBNESS? YES, STATES DEPENDING ON TAKING HIS MEDICATIONS; IF HE MISSES A DOSE THE PAIN INCREASES AND BECOMES INTOLERABLE . GASTROENTEROLOGY: ANY NEW CHANGE IN BOWEL CONTROL? NO . GENITOURINARY: ANY NEW CHANGE IN BLADDER CONTROL? NO . IS THERE A CHANCE YOU COULD BE ? NO . HEMATOLOGY/LYMPH: DO YOU TAKE ANY BLOOD THINNERS? (FOR EXAMPLE- COUMADIN, PLAVIX, AGGRENOX, PLATEL, PRADAXA, OR XARELTO) YES, WARFARIN . WHEN WAS YOUR LAST DOSE? DATE: 09/30/2019TIME: 1900 . NEUROLOGY: HAVE YOU FALLEN IN THE PAST 12 MONTHS? YES, STATES PRIOR TO LAST VISIT, DISCUSSED AT PREVIOUS VISIT . ANY NEW EXTREMITY NUMBNESS OR WEAKNESS? NO . CARDIOLOGY: DO YOU HAVE A PACEMAKER OR DEFIBRILLATOR? NO . RESPIRATORY: HAVE YOU BEEN SICK IN THE PAST WEEK? NO . FEVER NO . FLU LIKE SYMPTOMS? NO . COUGH NO . INTEGUMENTARY: DO YOU HAVE ANY RASHES OR OPEN SORES? NO . ALLERGIC/IMMUNO: ARE YOU ALLERGIC TO IV DYE? NO . ANY NEW ALLERGIES? NO . PSYCHIATRIC: DO YOU HAVE THOUGHTS OF HURTING YOURSELF OR SOMEONE ELSE? NO . ARE YOU ABUSED, NEGLECTED, OR IN AN UNSAFE ENVIRONMENT? NO . ENDOCRINOLOGY: ARE YOU DIABETIC? NO . OTHER: DO YOU NEED ANY PRESCRIPTIONS? YES . IF YES, PLEASE LIST: ____OXYCODONE . ANY NEW PROBLEMS WITH YOUR MEDICATIONS? NO . WHEN DID YOU LAST EAT? ____ . WHEN DID YOU LAST DRINK? ____ . WHAT DID YOU LAST DRINK? ____ . NAME OF PERSON DRIVING YOU HOME? ____ . DO YOU HAVE ANY OTHER QUESTIONS OR CONCERNS NO . 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 (RECENT URINE TOXICOLOGY REVIEWED. NO UNAUTHORIZED MEDICATIONS. NO ILLICIT SUBSTANCES AND PRESCRIBED MEDICATIONS WERE PRESENT. OTHERS NOTES: VITALS NOT OBTAINED DUE TO PHONE VISIT. DISPOSITION & COMMUNICATION FOLLOW UP 2 MONTHS (REASON: PHANTOM LIMB PAIN/LBP) ELECTRONICALLY SIGNED BY CHAPITO HESS ON 10/02/2019 AT 08:38 AM EDT DISCLAIMER : THIS IS A VISIT SUMMARY EXTRACTED FROM THE [facility] CHART. IT IS NOT A COPY OF THE [facility] PROGRESS NOTE. GENO
== END ==
LOC: M PAIN 10:45
PROVIDERS: ATTEND Nurse Practitioner Family
DX: G54.6 Phantom limb syndrome with pain (principal); M54.5 Low back pain; I10 Essential (primary) hypertension; J44.9 Chronic obstructive pulmonary disease, unspecified; Z79.891 Long term (current) use of opiate analgesic; Z79.899 Other long term (current) drug therapy; Z87.891 Personal history of nicotine dependence

== ENCOUNTER → 2019-10-23 | Outpatient (REF) | payer MEDICARE, MEDICAID ==
[~2019-10-23] MED LIST changes: -AMLO10TA5 PO; +AMLO1TAB24 PO; +AMLO1TAB25 PO; -AMLO5TAB6 PO; -COUM1TAB14 PO; +COUM4TAB8 PO; -COUM7.5T PO; +COUM7.5T6 PO; +LABE100T4 PO; -LABE10TAB PO; -LISI-538 PO; +LISI20TA33 PO; +LOVE1INJ SC
[2019-10-23 15:26] LABS: INR 1.52
== END ==
LOC: M SHH 12:59
PROVIDERS: ATTEND Family Medicine
DX: Z79.01 Long term (current) use of anticoagulants (principal)

== ENCOUNTER → 2019-10-31 | Outpatient (REF) | payer MEDICARE, MEDICAID ==
[~2019-10-31] MED LIST changes: +AMLO10TA5 PO; -AMLO1TAB24 PO; -AMLO1TAB25 PO; +AMLO5TAB6 PO; +COUM1TAB14 PO; -COUM4TAB8 PO; +COUM7.5T PO; -COUM7.5T6 PO; -LABE100T4 PO; +LABE10TAB PO; +LISI-538 PO; -LISI20TA33 PO; -LOVE1INJ SC
[2019-10-31 11:17] LABS: INR 2.45; PROTHROMBIN TIME 26.4 SECONDS (11.8-14.0)
== END ==
LOC: M SHH 10:34
PROVIDERS: ATTEND Family Medicine
DX: Z79.01 Long term (current) use of anticoagulants (principal)

== ENCOUNTER → 2019-11-04 | Outpatient (CLI) | payer MEDICARE, MEDICAID | LOC: M LABSMTC 09:55 | PROVIDERS: ATTEND Anesthesiology | DX: Z01.812 Encounter for preprocedural laboratory examination (principal); Z11.59 Encounter for screening for other viral diseases ==

== ENCOUNTER 2019-11-07 07:48 | Day surgery (SDC) | payer MEDICARE, MEDICAID ==
[~2019-11-07] VITALS: Ht 188 cm; Wt 98.8 kg
[~2019-11-07 07:48] MED LIST changes: +NS 1,000 ML IV ONE
[2019-11-07] MEDS ORDERED: LIDOCAINE 2% 100MG/5ML SDV (FOR ANES.) As Ordered ONE (08:38)
[2019-11-07] MEDS ORDERED: propofoL 200 MG/20 ML VIAL As Ordered ONE (08:39)
--- NOTE | 2019-11-07 09:08 | ROOR ---
Patient Name: Zack Marino Procedure Date: 11/07/2019 8:48 AM Date of : 1960 Age: 59 Room: [facility] Gender: Male Note Status: Finalized Procedure: Colonoscopy Indications: High risk colon cancer surveillance: Personal history of colonic polyps, High risk colon cancer surveillance: Personal history of colon cancer Providers: Alton Sabillon DO Referring MD: Leora BERRY DO Requesting Provider: Medicines: Propofol per Anesthesia Complications: No immediate complications. Procedure: Pre-Anesthesia Assessment: - Prior to the procedure, a History and Physical was performed, and patient medications and allergies were reviewed. The patient is competent. The risks and benefits of the procedure and the sedation options and risks were discussed with the patient. All questions were answered and informed consent was obtained. Patient identification and proposed procedure were verified by the physician, the nurse, the anesthesiologist and the graphic technician in the endoscopy suite. Mental Status Examination: alert and oriented. Airway Examination: normal oropharyngeal airway and neck mobility. Respiratory Examination: clear to auscultation. CV Examination: normal. Prophylactic Antibiotics: The patient does not require prophylactic antibiotics. Prior Anticoagulants: The patient has taken Coumadin (warfarin). ASA Grade Assessment: III - A patient with severe systemic disease. After reviewing the risks and benefits, the patient was deemed in satisfactory condition to undergo the procedure. The anesthesia plan was to use monitored anesthesia care (MAC). Immediately prior to administration of medications, the patient was re-assessed for adequacy to receive sedatives. The heart rate, respiratory rate, oxygen saturations, blood pressure, adequacy of pulmonary ventilation, and response to care were monitored throughout the procedure. The physical status of the patient was re-assessed after the procedure. The Colonoscope was introduced through the anus with the intention of advancing to the cecum. The scope was advanced to the sigmoid colon before the procedure was aborted. Medications were not given. The colonoscopy was technically difficult and complex due to poor bowel prep with stool present. The patient tolerated the procedure well. Findings: A large amount of semi-solid stool was found in the entire colon, precluding visualization. Two hyperplastic polyps were found in the sigmoid colon. The polyps were less than 5 mm in size. These polyps were removed with a jumbo cold forceps. Resection and retrieval were complete. Estimated blood loss was minimal. Impression: - Stool in the entire examined colon. - Two less than 5 mm polyps in the sigmoid colon, removed with a jumbo cold forceps. Resected and retrieved. Recommendation: - Repeat colonoscopy at next available appointment (within 3 months) because the bowel preparation was suboptimal. - Return to my office in 1 week. Alton Sabillon DO 11/07/2019 9:08:39 AM Electronically signed by Alton Sabillon DO Number of Addenda: 0 Note Initiated On: 11/07/2019 8:48 AM Estimated Blood Loss: Estimated blood loss was minimal.
[2019-11-07 09:30] VITALS: BP 154/73
== END 2019-11-07 10:13 | disposition home or self-care (01) ==
LOC: M OPP 07:48
PROVIDERS: ATTEND Surgery
DX: Z86.010 Personal history of colon polyps (principal); Z85.038 Personal history of other malignant neoplasm of large intestine; D12.5 Benign neoplasm of sigmoid colon; Z08 Encounter for follow-up examination after completed treatment for malignant neoplasm; J44.9 Chronic obstructive pulmonary disease, unspecified; I25.810 Atherosclerosis of coronary artery bypass graft(s) without angina pectoris; Z79.01 Long term (current) use of anticoagulants; Z79.891 Long term (current) use of opiate analgesic; Z79.899 Other long term (current) drug therapy

== ENCOUNTER → 2019-11-14 | Outpatient (REF) | payer MEDICARE, MEDICAID ==
[~2019-11-14] MED LIST changes: -COUM1TAB14 PO; +COUM4TAB8 PO; -COUM7.5T PO; +COUM7.5T6 PO; -NS 1,000 ML IV ONE
[2019-11-14 12:15] LABS: INR 2.54; PROTHROMBIN TIME 27.2 SECONDS (11.8-14.0)
== END ==
LOC: M SHH 11:42
PROVIDERS: ATTEND Family Medicine
DX: Z79.01 Long term (current) use of anticoagulants (principal)

== ENCOUNTER → 2019-11-15 | Outpatient (REF) | payer MEDICARE, MEDICAID ==
[2019-11-15 18:03] LABS: COMPLEMENT C3 120 MG/DL (90-180); COMPLEMENT C4 22 MG/DL (10-40)
[2019-11-15 18:23] LABS: TOTAL PROTEIN,RANDOM URINE 231.7 MG/DL (0.0-12.0)
[2019-11-20 17:07] LABS: ANCA-ATYPICAL <1:20 titer (Neg:<1:20); ANTI DS-DNA AB Negative (Negative); ANTI-GLOMERULAR BASEMENT MEMB 3 units (0-20); CYTOPLASMIC NEUTROP AB ANCA-C <1:20 titer (Neg:<1:20); PERINUCLEAR AB ANCA-P <1:20 titer (Neg:<1:20)
== END ==
LOC: M LAB REF 16:52
PROVIDERS: ATTEND Internal Medicine Nephrology
DX: R80.9 Proteinuria, unspecified (principal); N18.3 Chronic kidney disease, stage 3 (moderate)

== ENCOUNTER → 2019-12-02 | Outpatient (CLI) | payer MEDICARE, MEDICAID | LOC: M LABSMTC 10:06 | PROVIDERS: ATTEND Anesthesiology | DX: Z03.818 Encounter for observation for suspected exposure to other biological agents ruled out (principal) | CPT/HCPCS: C9803; U0003 ==

== ENCOUNTER → 2019-12-10 | Outpatient (CLI) | payer MEDICARE, MEDICAID ==
--- NOTE | 2019-12-14 05:10 | ECWPNPC ---
PATIENT NAME: NICOLASA BURNETT : 1960 GENDER: MALE VISIT DATE: 12/10/2019 DISCHARGE DATE: 12/10/19 0000 VISIT LOCKED DATE TIME: PHYSICIAN: GIANNI DOS SANTOS RESOURCE: GIANNI DOS SANTOS REASON FOR APPOINTMENT 1. WAITING FOR HEME/ONC APT BEFORE WE CAN PLAN LUMBAR BLOCKS HISTORY OF PRESENT ILLNESS GENERAL: PATIENT IS AGREEABLE TO TELEPHONE VISIT TODAY. CONTINUES TO SUFFER FROM SIGNIFICANT PAIN/PHANTOM LIMB PAIN. FINDS CURRENT CHRONIC PAIN MEDICINE EFFECTIVE AT REDUCING PAIN AND KEEPING HIM COMFORTABLE. DENIES ADVERSE SIDE EFFECTS. HE IS INTERESTED IN MEDICAL MARIJUANA. HE HAS AN APPOINTMENT WITH PALLIATIVE CARE COMING UP IN THE NEXT FEW WEEKS. HE IS AWARE THAT ONCE MEDICAL MARIJUANA HAS BEEN ESTABLISHED WE WOULD BE WEANING HIM OFF OF OXYCODONE. CURRENTLY USING OXYCODONE 5/325 3 TABLETS DAILY. DENIES ADVERSE SIDE EFFECTS. IT WOULD BE TOO RISKY TO HAVE HIM OFF BLOOD THINNER TO CONSIDER INJECTIONS. -. FALL RISK SCREENING: SCREENING :ONE FALL WITHOUT INJURY IN THE PAST YEAR PAIN SCREENING: PATIENT HAS A COMPLAINT OF ACUTE OR CHRONIC PAIN :YES LOCATION OF PAIN:LOW BACK INTENSITY OF PAIN (SCALE OF 1 TO 10):8 WHAT DOES YOUR PAIN FEEL LIKE:ACHING, CONTINOUS, SHARP, STABBING, TENDER, THROBBING, SORE, SHOOTING NURSING NOTE: -. PAIN CENTER INTAKE QUESTIONS: DO YOU HAVE A HISTORY OF MRSA? :NO DO YOU TAKE A BLOOD THINNERS? :YES WARFARIN DO YOU HAVE ANY BLEEDING DISORDERS? :NO ANY NEW NUMBNESS OR WEAKNESS IN YOUR LEGS OR ARMS? :YES NUMBNESS IN LEFT LEG ANY PACEMAKER,DEFIBRILLATOR, OR DORSAL COLUMN STIMULATOR? :YES PIG VALVE, STENT DO YOU HAVE ANY RASHES OR OPEN SORES? :NO ARE YOU ALLERGIC TO IV DYE? :NO ARE YOU DIABETIC? :NO ANY NEW PROBLEMS WITH YOUR MEDICATIONS? :NO HAVE YOU RECEIVED A VACCINE IN THE PAST 30 DAYS? :NO DO YOU PLAN TO RECEIVE A VACCINE IN THE NEXT 21 DAYS? :NO DO YOU NEED ANY PRESCRIPTION? :YES OXYCODONE DO YOU TAKE ANY IMMUNOSUPPRESSIVE MEDICATIONS? :NO IS THERE A CHANCE YOU COULD BE ? :NO ARE YOU BREAST FEEDING? :NO CURRENT MEDICATIONS TAKING WARFARIN SODIUM 4 MG TABLET 2 TABS ORALLY DAILY TAKING AMLODIPINE BESYLATE 10 MG TABLET ORALLY DAILY TAKING ALBUTEROL SULFATE HFA 108 (90 BASE) MCG/ACT AEROSOL SOLUTION 2 PUFFS NEEDED FOR WHEEZING INHALATION EVERY 4- 6 HRS TAKING HYDRALAZINE HCL 50 MG TABLET TAKE ONE TABLET BY MOUTH EVERY 8 HOURS ORALLY THREE TIMES DAILY TAKING CARVEDILOL 25 MG TABLET 2 TABLET ORALLY BID TAKING ATORVASTATIN CALCIUM 40 MG TABLET TAKE ONE TABLET BY MOUTH EVERY DAY ORALLY DAILY TAKING GABAPENTIN 800 MG TABLET 1 CAP ORALLY THREE TIMES DAILY TAKING DULOXETINE HCL 30 MG CAPSULE DELAYED RELEASE PARTICLES 1 CAPSULE ORALLY TWICE A DAY TAKING FINASTERIDE 5 MG TABLET 1 TABLET ORALLY ONCE A DAY TAKING OXYCODONE-ACETAMINOPHEN 5-325 MG TABLET 1 TABLET NEEDED ORALLY Q8H PRN MDD3 NOT-TAKING DOXYCYCLINE HYCLATE 100 MG TABLET 1 TABLET ORALLY BID NOT-TAKING TYLENOL 8 HOUR 650 MG TABLET EXTENDED RELEASE 2 TABLETS NEEDED ORALLY EVERY 8 HRS NOT-TAKING WARFARIN SODIUM 1 MG TABLET 1 TABLET ORALLY DAILY MWF NOT-TAKING WARFARIN SODIUM 6 MG TABLET 1 TABLET ORALLY ONCE A DAY //TUE MEDICATION LIST REVIEWED AND RECONCILED WITH THE PATIENT PAST MEDICAL HISTORY DOUBLE BYPASS / HX PAD AND CAD DIVERTICULITIS R AKA FOLLOWING FAILED BKA (FOR PAD) PANCREATITIS (HX OF ETOH) PVD RIGHT CVA HTN BLOOD CLOT X 2 IN RIGHT LEG DEPRESSION COPD BIOPROSTHETIC AORTIC VALVE (DR. PEREZ) COLON CANCER, S/P RESECTION FELT TO HAVE A PFO WITHOUT REPAIR RETINAL ARTERY OBSTRUCTION ALLERGIES N.K.D.A. SURGICAL HISTORY VALVE REPLACEMENT (AORTIC VALVE), ANEURYSM SURGERY 2015 COLON RESECTION FOR CANCER 2015 R BKA DECEMBER 2016 ANGIOPLASTY AMNA LOWER EXTREMITIES JAN 2016 R AKA JAN 2017 ANGIOGRAM 08/2018 BYPASS,ANGIO,STENT 05/23/19 FAMILY HISTORY FATHER: 65 YRS, DIAGNOSED WITH DIABETES, OTHER MALIGNANT NEOPLASM OF UNSPECIFIED SITE MOTHER: ALIVE 79 YRS, OTHER SPECIFIED CONDITIONS INFLUENCING HEALTH STATUS PATERNAL GRAND FATHER: OTHER MALIGNANT NEOPLASM OF UNSPECIFIED SITE MATERNAL GRAND FATHER: HYPERTENSION MATERNAL GRAND MOTHER: HYPERTENSION 3 SISTER(S) - HEALTHY. SOCIAL HISTORY GENERAL: TOBACCO USE ARE YOU A:FORMER SMOKER STATES HE DOESN'T SMOKE; THEN ADMITS TO SMOKING YESTERDAY HOW LONG HAS IT BEEN SINCE YOU LAST SMOKED?1-5 YEARS LATEX QUESTIONNAIRE LATEX ALLERGY : HAVE YOU EVER DEVELOPED ANY TYPE OF REACTION AFTER HANDLING LATEX PRODUCTS SUCH RUBBER GLOVES, CONDOMS, DIAPHRAGMS, BALLOONS, SOCKS, OR UNDERWEAR?NO LATEX ALLERGY : HAVE YOU EVER DEVELOPED ANY TYPE OF REACTION DURING OR AFTER DENTAL APPOINTMENT, VAGINAL/RECTAL EXAMINATION, SURGICAL PROCEDURE, OR ANY OTHER EXPOSURE?NO LATEX RISK : HAVE YOU EVER HAD ANY DIFFICULTY BREATHING OR HIVES AFTER EATING OR HANDLING ANY FRUITS, OR VEGETABLES; SUCH KIWI, BANANAS, STONE FRUITS, OR CHESTNUTSNO LATEX RISK : DO YOU HAVE A PREVIOUS PERSONAL HISTORY OF MORE THAN NINE SURGERIES, SPINA BIFIDA, OR REPEATED CATHERIZATIONS? NO LATEX RISK : ARE YOU FREQUENTLY EXPOSED TO LATEX PRODUCTS IN YOUR OCCUPATION?NO DATE ASKED : 12/07/2019 ALCOHOL SCREENING DID YOU HAVE A DRINK CONTAINING ALCOHOL IN THE PAST YEAR?NO POINTS0 INTERPRETATIONNEGATIVE RECREATIONAL DRUG USE DRUG USE?NO CAFFEINE CAFFEINE USE?YES 1-2 CUPS PER DAY SEXUAL HX HAD SEX IN THE LAST 12 MONTHS (VAGINAL, ORAL, OR ANAL)?NO HIV / HEP-C SCREENING HIV TEST OFFERED TO PATIENT:YES DATE OFFERED:05/17/2019 TEST ACCEPTED:NO HEP-C TEST OFFERED TO PATIENT:YES DATE OFFERED:05/17/2019 REASON:PATIENT DECLINED TEST ACCEPTED:NO REASON:PATIENT DECLINED BROCHURE PROVIDED TO PATIENTYES ROMAN CATHOLIC [id number] NONE LANGUAGE LANGUAGES SPOKEN:HEBREW EDUCATION LEVEL OF EDUCATION:HIGH SCHOOL LEARNING BARRIERS / SPECIAL NEEDS CHANGE FROM LAST VISIT?NO BARRIERS TO LEARNING?NO HEARING IMPAIRED?NO VISION IMPAIRED?YES COGNITIVELY IMPAIRED?NO :CORRECTIVE LENSES READINESS TO LEARN?YES LEARNING PREFERENCES?YES PREFERS WRITTEN MATERIAL LEARNING CAPABILITIES PRESENT?YES EMOTIONAL BARRIERS?NO SPECIAL DEVICES?YES :WALKER, WHEELCHAIR, OTHER BACK END ENGINEER NEEDED?NO DOMESTIC VIOLENCE DO YOU FEEL SAFE IN YOUR ENVIRONMENT?YES 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 DIET: NO ADDED SALT. EXERCISE: WHEELCHAIR OR WALKER. OTHERS AT HOME: MOTHER. PAIN CLINIC PFS, CLERGY, PUBLIC HEALTH REFERRALS PFS REFERRAL NEEDED?NO CLERGY REFERRAL NEEDED?NO PUBLIC HEALTH REFERRAL NEEDED?NO WAS THE PROVIDER NOTIFIED OF ANY PERTINENT INFO?YES HAS THE PATIENT BEEN EDUCATED REGARDING HIS/HER PLAN OF CARE?YES HAS THE PATIENT BEEN EDUCATED REGARDING PAIN, THE RISK FOR PAIN, THE IMPORTANCE OF EFFECTIVE PAIN MANAGEMENT, AND THE PAIN ASSESSMENT PROCESS?YES ADVANCE DIRECTIVE ADVANCE DIRECTIVE DISCUSSED WITH PATIENT:YES HCP - ANIL BURNETT (SISTER) HOSPITALIZATION/MAJOR DIAGNOSTIC PROCEDURE CVA 12/2015 SURGERY RELATED REVIEW OF SYSTEMS CONSTITUTIONAL: ANY RECENT FEVER NO . CHILLS NO . WEIGHT CHANGE OF UNKNOWN REASONS NO . GASTROENTEROLOGY: NEW UNEXPLAINABLE CHANGES IN BOWEL CONTROL NO . CONSTIPATION NO . GENITOURINARY: ANY NEW CHANGE IN BLADDER CONTROL? NO . NEUROLOGY: NEW ONSET DIZZINESS OR NEUROLOGICAL CHANGES NOT MENTIONED NO . NEW NUMBNESS OR PAIN PATTERNS NOT MENTIONED AND PERTINENT TO TODAY'S VISIT NO . CARDIOLOGY: NEW CHEST PRESSURE NO . NEW CHEST PAIN NO . RESPIRATORY: UNEXPLAINABLE COUGH NO . NEW SHORTNESS OF BREATH NO . 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 WE WILL SEE HIM BACK IN CLINIC IN 2 MONTHS AFTER PALLIATIVE CARE EVALUATION AND MODIFY CHRONIC PAIN MEDICATION REGIMEN IF POSSIBLE. TOTAL TIME SPENT DURING TELEPHONE INTERVIEW WAS APPROXIMATELY 12 MINUTES. , ISTOP REGISTRY REVIEWED AND DEMONSTRATES COMPLLIANCE. OTHERS NOTES: UNABLE TO OBTAIN VITAL SIGNS DUE TO PHONE VISIT, PT CONSENTS FOR ACCESS TO RECORDS FOR PHONE VISIT. DS. DISPOSITION & COMMUNICATION FOLLOW UP 2 MONTHS (REASON: MED MGMNT) ELECTRONICALLY SIGNED BY CHAPITO HESS ON 12/13/2019 AT 01:29 PM EDT DISCLAIMER : THIS IS A VISIT SUMMARY EXTRACTED FROM THE [employer] CHART. IT IS NOT A COPY OF THE [employer] PROGRESS NOTE. GENO
== END ==
LOC: M PAIN 11:00
PROVIDERS: ATTEND Nurse Practitioner Family
DX: G54.6 Phantom limb syndrome with pain (principal); Z79.891 Long term (current) use of opiate analgesic

== ENCOUNTER → 2019-12-18 | Outpatient (REF) | payer MEDICARE, MEDICAID ==
[~2019-12-18] MED LIST changes: -AMLO10TA5 PO; +AMLO1TAB24 PO; +AMLO1TAB25 PO; -AMLO5TAB6 PO; +LOVE1INJ SC
== END ==
LOC: M LAB REF 17:12
PROVIDERS: ATTEND Internal Medicine Nephrology
DX: N18.3 Chronic kidney disease, stage 3 (moderate) (principal)

== ENCOUNTER 2019-12-19 18:47 | Emergency (ER) | payer MEDICARE, MEDICAID ==
[~2019-12-19] VITALS: Ht 188 cm; Wt 98.6 kg
[~2019-12-19 18:47] MED LIST changes: +AMLO10TA5 PO; -AMLO1TAB24 PO; -AMLO1TAB25 PO; +AMLO5TAB6 PO; -LOVE1INJ SC
[2019-12-19 18:48] VITALS: BP 151/76
--- NOTE | 2019-12-19 19:22 | REPVR ---
PROCEDURE INFORMATION: Exam: CT Cervical Spine Without Contrast Exam date and time: 12/19/2019 7:03 PM Age: 59 years old Clinical indication: Injury or trauma; Fall; Initial encounter; Blunt trauma; Additional info: On coumadin hit head TECHNIQUE: Imaging protocol: Computed tomography images of the cervical spine without contrast. Radiation optimization: All CT scans at this facility use at least one of these dose optimization techniques: automated exposure control; mA and/or kV adjustment per patient size (includes targeted exams where dose is matched to clinical indication); or iterative reconstruction. COMPARISON: No relevant prior studies available. FINDINGS: Vertebrae: Nonspecific straightening. Vertebral body height and AP alignment is preserved. Moderate degenerative change about the dens. Mild to moderate prevertebral osteophytosis. There are bilateral facet joint degenerative changes. No acute cervical spine fracture. Discs/Spinal canal/Neural foramina: Central canal stenosis greatest at C6-C7, likely moderate. Multilevel cervical foraminal stenoses. Soft tissues: Unremarkable. Lungs: Lung apices are normal. Pleural space: No visible pneumothorax. IMPRESSION: No acute cervical spine fracture. Electronically signed by: Armando Patino On 12/19/2019 19:21:45 PM
--- NOTE | 2019-12-19 19:28 | REPVR ---
PROCEDURE INFORMATION: Exam: CT Head Without Contrast Exam date and time: 12/19/2019 7:03 PM Age: 59 years old Clinical indication: Injury or trauma; Fall; Initial encounter; Blunt trauma (contusions or hematomas); Additional info: On coumadin hit head TECHNIQUE: Imaging protocol: Computed tomography of the head without contrast. Radiation optimization: All CT scans at this facility use at least one of these dose optimization techniques: automated exposure control; mA and/or kV adjustment per patient size (includes targeted exams where dose is matched to clinical indication); or iterative reconstruction. COMPARISON: CT Head without contrast 09/12/2017 1:55 PM FINDINGS: Brain: No acute intracranial hemorrhage, midline shift or mass effect. Mild decreased attenuation of the supratentorial white matter is likely secondary to chronic microvascular ischemia. There are few scattered small foci of calcification, stable. Small chronic right cerebellar infarct. Ventricles: No hydrocephalus. Bones/joints: Unremarkable. No acute fracture. Sinuses: Visualized sinuses are unremarkable. No fluid levels. Mastoid air cells: Visualized mastoid air cells are well aerated. IMPRESSION: No acute intracranial abnormality. Electronically signed by: Armando Patino On 12/19/2019 19:28:11 PM
== END 2019-12-19 20:11 | disposition home or self-care (01) ==
LOC: M ED 18:47
DX: S00.03XA Contusion of scalp, initial encounter (principal); W05.0XXA Fall from non-moving wheelchair, initial encounter; G43.909 Migraine, unspecified, not intractable, without status migrainosus; I25.10 Atherosclerotic heart disease of native coronary artery without angina pectoris; E78.00 Pure hypercholesterolemia, unspecified; I10 Essential (primary) hypertension; Z86.711 Personal history of pulmonary embolism; Z79.01 Long term (current) use of anticoagulants; Z79.899 Other long term (current) drug therapy; J44.9 Chronic obstructive pulmonary disease, unspecified; K21.9 Gastro-esophageal reflux disease without esophagitis; Z85.038 Personal history of other malignant neoplasm of large intestine; F41.9 Anxiety disorder, unspecified; F32.9 Major depressive disorder, single episode, unspecified; Y92.009 Unspecified place in unspecified non-institutional (private) residence as the place of occurrence of the external cause; Y99.8 Other external cause status; Y93.89 Activity, other specified

== ENCOUNTER → 2020-01-08 | Outpatient (POV) | payer MEDICARE, MEDICAID ==
[~2020-01-08] MED LIST changes: -AMLO10TA5 PO; +AMLO1TAB24 PO; +AMLO1TAB25 PO; -AMLO5TAB6 PO; +LOVE1INJ SC
--- NOTE | 2020-02-14 11:17 | IRCOV ---
[facility] IR Consult Office Visit IR Consult Office Visit DATE: Jan 08, 2020 Patient agreed to this telephone consultation. I spent 30 minutes reviewing imaging, history and in discussion with the patient. REASON FOR CONSULTATION/CHIEF COMPLAINT: Renal failure. Referred for kidney biopsy. HISTORY OF PRESENT ILLNESS: This is a 60-year-old male with aortic valve replacement with bioprosthesis, Dacron graft repair of ascending aorta, coronary artery disease, previous peripheral vascular disease with reported iliac stents, possible cardiac bypass surgery, COPD, alcohol induced pancreatitis, colon cancer with partial colectomy and history of stroke referred by nephrology for kidney biopsy. He denies prior kidney surgery or kidney biopsy. He denies chest pain, shortness of breath, orthopnea or paroxysmal nocturnal dyspnea. He denies hematuria. ALLERGIES: Please see below. HOME MEDICATIONS: Please see below. PAST MEDICAL HISTORY: Hypertension CAD Peripheral vascular disease Aortic valve replacement with bioprosthesis Iliac stents Ascending aortic graft Depression COPD Alcohol abuse with pancreatitis Colon cancer with partial colectomy Stroke PAST SURGICAL HISTORY: Partial colectomy Ascending aortic repair Aortic valve replacement FAMILY HISTORY: Noncontributory. SOCIAL HISTORY: Ex-smoker. Denies drugs or alcohol. REVIEW OF SYSTEMS: Otherwise negative PHYSICAL EXAMINATION: No video on patient side. LABORATORY DATA: No labs in [facility] system Imaging: I personally reviewed the ultrasound of the kidneys performed May 2019. Poor corticomedullary differentiation. No hydronephrosis. Multiple bilateral hypoechoic cysts. ASSESSMENT/PLAN: 60-year-old male with extensive cardiovascular hardware, on anticoagulation, presents for kidney biopsy. We discussed the risks and benefits of the procedure and patient would like to proceed. We will need to hold the Lovenox for 48 hours prior to the procedure. Given patient's risk factors, he may benefit from inpatient admission and and intravenous heparin therapy for bridging. I will discuss this with his cardiothoracic surgeon, cardiology and nephrology. Patient will then be scheduled for the procedure. I spent 30 minutes in consultation with the patient. CC Dr. Daniel 02/14/2020. Since the time of this consultation patient has already undergone a kidney biopsy. We will not be scheduling a kidney biopsy for this patient. Thank you for this referral. Allergies Coded Allergies: No Known Allergies (Unverified , 11/26/19) Home Medications Scheduled Amlodipine Besylate (Amlodipine Besylate), 10 MG PO DAILY Atorvastatin Calcium (Atorvastatin Calcium), 40 MG PO DAILY Carvedilol (Carvedilol), 25 MG PO DAILY, (Reported) Duloxetine Hcl (Duloxetine HCl), 30 MG PO BID, (Reported) Finasteride (Finasteride), 5 MG PO DAILY, (Reported) Gabapentin (Gabapentin), 800 MG PO TID, (Reported) Hydralazine HCl (Hydralazine HCl), 50 MG PO Q8H Warfarin Sodium (Warfarin Sodium), 8 MG PO QPM, (Reported) Scheduled PRN Albuterol Sulfate (Ventolin Hfa), 2 PUFF INH Q4-6HP PRN for wheezing, (Reported) Oxycodone HCl/Acetaminophen (Oxycodone-Acetaminophen 5-325), 1 TAB PO Q8HP PRN for PAIN, (Reported) MARISA MCMULLEN MD Feb 14, 2020 11:17
== END ==
LOC: M TMIRPOV 13:00
PROVIDERS: ATTEND Radiology Diagnostic Radiology
DX: N17.9 Acute kidney failure, unspecified (principal); I25.10 Atherosclerotic heart disease of native coronary artery without angina pectoris; I73.9 Peripheral vascular disease, unspecified; J44.9 Chronic obstructive pulmonary disease, unspecified; I10 Essential (primary) hypertension; F32.9 Major depressive disorder, single episode, unspecified; F10.10 Alcohol abuse, uncomplicated; K85.20 Alcohol induced acute pancreatitis without necrosis or infection; Z79.01 Long term (current) use of anticoagulants; Z85.038 Personal history of other malignant neoplasm of large intestine; Z86.73 Personal history of transient ischemic attack (TIA), and cerebral infarction without residual deficits; Z87.891 Personal history of nicotine dependence; Z95.2 Presence of prosthetic heart valve; Z95.828 Presence of other vascular implants and grafts

== ENCOUNTER 2020-01-16 07:15 | Day surgery (SDC) | payer MEDICARE, MEDICAID ==
[~2020-01-16] VITALS: Ht 188 cm; Wt 100.7 kg
[~2020-01-16 07:15] MED LIST changes: +LIDOCAINE 2% 100MG/5ML SDV (FOR ANES.) As Ordered ONE; -LOVE1INJ SC; +NS 1,000 ML IV ONE; +propofoL 200 MG/20 ML VIAL As Ordered ONE
--- NOTE | 2020-02-20 11:33 | ROOR ---
Patient Name: Zack Marino Procedure Date: 01/16/2020 7:35 AM Date of : 1960 Age: 60 Room: [facility] Gender: Male Note Status: Finalized Procedure: Colonoscopy Indications: High risk colon cancer surveillance: Personal history of colonic polyps Providers: Alton Sabillon DO Referring MD: Leora BERRY DO Requesting Provider: Medicines: Propofol per Anesthesia Complications: No immediate complications. Procedure: Pre-Anesthesia Assessment: - Prior to the procedure, a History and Physical was performed, and patient medications and allergies were reviewed. The patient is competent. The risks and benefits of the procedure and the sedation options and risks were discussed with the patient. All questions were answered and informed consent was obtained. Patient identification and proposed procedure were verified by the physician, the nurse, the anesthesiologist and the clinical technician in the endoscopy suite. Mental Status Examination: alert and oriented. Airway Examination: normal oropharyngeal airway and neck mobility. Respiratory Examination: clear to auscultation. CV Examination: normal. Prophylactic Antibiotics: The patient does not require prophylactic antibiotics. Prior Anticoagulants: The patient has taken Coumadin (warfarin), last dose was 4 days prior to procedure. ASA Grade Assessment: II - A patient with mild systemic disease. After reviewing the risks and benefits, the patient was deemed in satisfactory condition to undergo the procedure. The anesthesia plan was to use monitored anesthesia care (MAC). Immediately prior to administration of medications, the patient was re-assessed for adequacy to receive sedatives. The heart rate, respiratory rate, oxygen saturations, blood pressure, adequacy of pulmonary ventilation, and response to care were monitored throughout the procedure. The physical status of the patient was re-assessed after the procedure. The Colonoscope was introduced through the anus with the intention of advancing to the cecum. The scope was advanced to the descending colon before the procedure was aborted. Medications were not given. The colonoscopy was performed without difficulty. The patient tolerated the procedure well. The quality of the bowel preparation was not adequate to identify polyps 6 mm and larger in size. The colonoscopy was aborted due to poor bowel prep with stool present. Findings: Multiple small and large-mouthed diverticula were found in the sigmoid colon. A large amount of semi-solid solid stool was found in the entire colon, precluding visualization. Two hyperplastic polyps were found in the sigmoid colon. The polyps were 2 to 5 mm in size. These polyps were removed with a cold snare. Resection and retrieval were complete. Estimated blood loss was minimal. Impression: - Preparation of the colon was inadequate. - The procedure was aborted due to poor bowel prep with stool present. - Diverticulosis in the sigmoid colon. - Stool in the entire examined colon. - Two 2 to 5 mm polyps in the sigmoid colon, removed with a cold snare. Resected and retrieved. Recommendation: - Patient has a contact number available for emergencies. The signs and symptoms of potential delayed complications were discussed with the patient. Return to normal activities tomorrow. Written discharge instructions were provided to the patient. - Await pathology results. - Repeat colonoscopy in 6 months because the bowel preparation was suboptimal. - Return to my office at appointment to be scheduled. Alton Sabillon DO 01/16/2020 8:03:06 AM Number of Addenda: 0 Note Initiated On: 01/16/2020 7:35 AM Estimated Blood Loss: Estimated blood loss was minimal.
[2020-02-21] MEDS ORDERED: LOVE1INJ SC (11:01)
== END 2020-01-16 08:50 | disposition home or self-care (01) ==
LOC: M OPP 07:15
PROVIDERS: ATTEND Surgery
DX: Z12.11 Encounter for screening for malignant neoplasm of colon (principal); Z85.038 Personal history of other malignant neoplasm of large intestine; Z86.010 Personal history of colon polyps; K63.5 Polyp of colon; K57.30 Diverticulosis of large intestine without perforation or abscess without bleeding; I11.9 Hypertensive heart disease without heart failure; I49.3 Ventricular premature depolarization; Z95.3 Presence of xenogenic heart valve; Z79.01 Long term (current) use of anticoagulants; Z79.899 Other long term (current) drug therapy

== ENCOUNTER → 2020-02-11 | Outpatient (CLI) | payer MEDICARE, MEDICAID ==
[~2020-02-11] MED LIST changes: -LIDOCAINE 2% 100MG/5ML SDV (FOR ANES.) As Ordered ONE; +LOVE1INJ SC; -NS 1,000 ML IV ONE; -propofoL 200 MG/20 ML VIAL As Ordered ONE
== END ==
LOC: M PAIN 11:10
PROVIDERS: ATTEND Nurse Practitioner Family
DX: Z79.891 Long term (current) use of opiate analgesic (principal)

== ENCOUNTER → 2020-02-20 | Outpatient (REF) | payer MEDICARE, MEDICAID ==
[2020-02-20 13:20] LABS: INR 0.92; PROTHROMBIN TIME 12.6 SECONDS (11.8-14.0)
== END ==
LOC: M LAB REF 11:54
PROVIDERS: ATTEND Internal Medicine Nephrology
DX: R31.9 Hematuria, unspecified (principal)

== ENCOUNTER → 2020-02-21 | Outpatient (CLI) | payer MEDICARE, MEDICAID ==
[~2020-02-21] MED LIST changes: +LIDOCAINE 1% MDV 20ML VIAL As Ordered ONE
[2020-02-21 15:30] VITALS: BP 165/83
--- NOTE | 2020-03-10 10:54 | RO ---
DATE OF OPERATION: 02/21/2020. PRE-PROCEDURE DIAGNOSIS: Proteinuria. POST-PROCEDURE DIAGNOSIS: Proteinuria. PROCEDURE: Left kidney biopsy. INDICATION FOR PROCEDURE: Proteinuria. SURGEON: Marcelino Daniel M.D. ANESTHESIA: 1% Lidocaine. DESCRIPTION OF PROCEDURE: Informed consent was obtained from the patient. The patient was then brought to the ultrasound room and placed in the prone position on the exam table. A rolled towel was placed under his abdomen for stabilization of kidney. Left kidney identified with ultrasound. Skin was then cleaned and prepped in the usual sterile fashion and 1% Lidocaine used for local anesthesia under direct ultrasound guidance all the way down to renal capsule. A small incision was made with a knife and coaxial needle advanced under direct ultrasound guidance to the renal capsule area. After confirming the position, a biopsy needle was then advanced through the coaxial needle and three specimens obtained in three different passings. Patient tolerated the procedure well and there were no complications. Coaxial needle was removed at the completion of procedure and digital pressure held to secure hemostasis. There was minimal blood loss. Patient was then transferred to Recovery Room in stable condition. Tissue was sent to the lab for pathology submission. [facility]
--- NOTE | 2020-03-13 08:07 | REP ---
RENAL SONOGRAPHY: ULTRASOUND GUIDANCE HISTORY: Proteinuria. FINDINGS: Sonographic guidance is provided to Dr. Daniel who performed an ultrasound- guided needle biopsy procedure of the left kidney. GENO
== END ==
LOC: M IRPRO 10:20
PROVIDERS: ATTEND Internal Medicine Nephrology
DX: R80.9 Proteinuria, unspecified (principal); D68.61 Antiphospholipid syndrome

== ENCOUNTER → 2020-02-28 | Outpatient (REF) | payer MEDICARE, MEDICAID ==
[~2020-02-28] MED LIST changes: -LIDOCAINE 1% MDV 20ML VIAL As Ordered ONE
[2020-02-28 14:35] LABS: INR 1.07; PROTHROMBIN TIME 14.2 SECONDS (12.5-14.3)
== END ==
LOC: M SHH 13:51
PROVIDERS: ATTEND Family Medicine
DX: I82.409 Acute embolism and thrombosis of unspecified deep veins of unspecified lower extremity (principal); I63.9 Cerebral infarction, unspecified; Z79.01 Long term (current) use of anticoagulants

== ENCOUNTER → 2020-03-05 | Outpatient (CLI) | payer MEDICARE, MEDICAID ==
--- NOTE | 2020-03-13 08:08 | REP ---
RIGHT ELBOW SERIES HISTORY: Fell backwards in a wheelchair a few weeks ago with pain. TECHNIQUE: Four views of the right elbow are performed. FINDINGS: There is no evidence of acute fracture, dislocation, or intrinsic bone disease. No definite joint effusion is seen. Joint spaces are unremarkable. IMPRESSION: No evidence of fracture or dislocation. MTDD
== END ==
LOC: M ADAMS 09:11
PROVIDERS: ATTEND Family Medicine
DX: M25.521 Pain in right elbow (principal)
CPT/HCPCS: 73080; G0463

== ENCOUNTER → 2020-03-12 | Outpatient (CLI) | payer MEDICARE, MEDICAID ==
--- NOTE | 2020-03-18 11:33 | REP ---
LEFT LOWER EXTREMITY DUPLEX DOPPLER ARTERIAL ULTRASOUND COMPARISON: 07/20/2019. HISTORY: Left fjihdgo-[id number]-udwloaaud bypass graft. Left lower extremity claudication. TECHNIQUE: Real-time ultrasound evaluation and duplex Doppler interrogation of the left lower extremity arterial system is performed. FINDINGS: Intimal thickening is seen at the common femoral artery. Mild scattered plaquing is seen. There is again occlusion of the [place] superficial femoral artery diffusely. Diffuse monophasic waveforms are present throughout the arterial structures of the left lower extremity. On the prior study, biphasic waveform was noted in the common femoral artery and triphasic waveform in the profunda. The posterior tibial artery is occluded distally, which is a new finding. There is reconstitution of the distal aspect of the posterior tibial artery. There is a stent in the left common iliac artery. Evaluation of the left common iliac artery is limited due to body habitus and overlying bowel gas. Monophasic waveforms are seen in the left common iliac and external iliac arteries with velocities measured 24.8 cm/s and 50.5 cm/s respectively. In general, the peak systolic velocities throughout the left lower extremity have diffusely decreased compared to the prior study. This may indicate a more proximal stenosis in an arterial structure feeding the arterial structures of the left lower extremity. Peak systolic velocities throughout the bypass graft are also decreased since the prior study, proximally at the anastomosis of the bypass graft peak systolic velocity is 133 cm/s with velocities more distally ranging between 18.5 and 32.8 cm/s. Ankle brachial indices (TAINA) is 0.35. The bypass graft is diffusely patent. VELOCITY CHART LEFT LOWER EXTREMY LEFT PSV (cm/s) Common femoral artery 28.7 Profunda 60.2 SFA occluded Popliteal 13.8 Proximal ERIC 12.6 Tibioperoneal trunk 17.6 Proximal SPECIAL SERVICES SUPERVISOR 13.5 Distal SPECIAL SERVICES SUPERVISOR Occluded/8.2 Distal ERIC 5.2 MTDD
== END ==
LOC: M RAD 10:41
PROVIDERS: ATTEND Surgery Vascular Surgery
DX: I70.212 Atherosclerosis of native arteries of extremities with intermittent claudication, left leg (principal); Z89.611 Acquired absence of right leg above knee
CPT/HCPCS: 85610; 93926; G0463

== ENCOUNTER → 2020-03-20 | Outpatient (REF) | payer MEDICARE, MEDICAID ==
[2020-03-20 15:07] LABS: INR 2.08; PROTHROMBIN TIME 23.9 SECONDS (12.5-14.3)
== END ==
LOC: M SHH 14:37
PROVIDERS: ATTEND Family Medicine
DX: Z79.01 Long term (current) use of anticoagulants (principal)

== ENCOUNTER → 2020-04-10 | Outpatient (CLI) | payer MEDICARE, MEDICAID ==
--- NOTE | 2020-04-10 11:29 | REP ---
INDICATION: ATHSCL [place] ARTEROF EXTRM W INTRMT PRISCILLA, L LEG;FILE RM. COMPARISON: 03/12/2020. TECHNIQUE: Real time xiong scale and Duplex Doppler evaluation of the left lower extremity arterial vasculature using linear high frequency transducer. FINDINGS: The ankle to brachial index of the left lower extremity is 0.33. The left common iliac artery and external iliac artery are occluded. There are occluded stents at these locations. The left common femoral artery supplied from the epigastric artery. There is occlusion of the superficial femoral artery. There is a patent left femoral to popliteal bypass graft with very slow flow. Peak systolic velocity at the anastomosis is 35 centimeters/second. Peak systolic velocity of the bypass graft at the 1st valve of the in situ graft is 92 centimeters/second, mid aspect 12 centimeters/second, distally 11 centimeters/second, indicating approximately 3-1 stenosis at the low level of the 1st valve. The posterior tibial artery is occluded at its mid to distal aspect with reconstitution just proximal to the medial malleolus. There are diffuse monophasic waveforms throughout the left lower extremity with high diastolic flow. PSV(cm/sec) Common femoral artery: 24 cm/s Profunda femoris artery: 12 cm/s Proximal superficial femoral artery: 6 cm/s Mid superficial femoral artery: Occluded Distal superficial femoral artery: Occluded Popliteal artery: 18 cm/s Proximal ERIC: 10 cm/s Tibioperoneal trunk: 19 cm/s Proximal CLAM BED WORKER: 5 cm/s Distal CLAM BED WORKER: 8 cm/s Distal ERIC: 4 cm/s IMPRESSION: Left common femoral artery supplied from the epigastric artery. Occlusion superficial femoral artery and posterior tibial artery. There is appears to be approximately 3-1 stenosis of the in situ femoral to popliteal bypass graft at the level of the 1st valve. <Electronically signed by Alton Xiong > 04/10/20 1128
== END ==
LOC: M RAD 09:16
PROVIDERS: ATTEND Physician Assistant
DX: I70.212 Atherosclerosis of native arteries of extremities with intermittent claudication, left leg (principal); Z89.611 Acquired absence of right leg above knee; Z95.1 Presence of aortocoronary bypass graft

== ENCOUNTER → 2020-04-21 | Outpatient (REF) | payer MEDICARE, MEDICAID | LOC: M SFHCADAM 14:02 | PROVIDERS: ATTEND Family Medicine | DX: Z79.01 Long term (current) use of anticoagulants (principal) ==

== ENCOUNTER → 2020-04-22 | Outpatient (REF) | payer MEDICARE, MEDICAID ==
[2020-04-22 11:58] LABS: INR 1.73; PROTHROMBIN TIME 20.6 SECONDS (12.5-14.3)
== END ==
LOC: M SHH 11:23
PROVIDERS: ATTEND Family Medicine
DX: Z79.01 Long term (current) use of anticoagulants (principal)

== ENCOUNTER → 2020-05-02 | Outpatient (REF) | payer MEDICARE, MEDICAID ==
[~2020-05-02] MED LIST changes: +LABE100T4 PO; -LABE10TAB PO
== END ==
LOC: M SFHCADAM 12:50
PROVIDERS: ATTEND Family Medicine
DX: R05 Cough (principal); Z20.828 Contact with and (suspected) exposure to other viral communicable diseases; Z79.01 Long term (current) use of anticoagulants
CPT/HCPCS: 85610; U0003

== ENCOUNTER → 2020-05-20 | Outpatient (CLI) | payer MEDICARE, MEDICAID ==
--- NOTE | 2020-05-20 13:57 | REP ---
INDICATION: UNSP ATHSCL [place] ARTERIES OF EXT LT ARM COMPARISON: None. TECHNIQUE: Real time evaluation and duplex Doppler evaluation of the Left upper extremity arterial system is performed. FINDINGS: No significant narrowing or evidence of occlusion is seen of the left upper extremity arterial system. Arterial structures: Peak systolic velocity (cm/s)/waveform/size (mm) Subclavian distal: 119/biphasic/7 Axillary: 109/biphasic/6 Brachial proximal colon 74/biphasic/6 Mid brachial: 78/biphasic/6 Distal brachial: 87/biphasic/5 Proximal radial: 57/triphasic/3 Mid radial: 69/triphasic/3 Distal radial: 63/triphasic/3 Proximal ulnar: 92/biphasic/4 Mid ulnar: 83/triphasic/3 Distal ulnar:68/monophasic/3 IMPRESSION: Arterial sizes and velocities are given above. <Electronically signed by Alton Xiong > 05/20/20 6814
== END ==
LOC: M RAD 11:32
PROVIDERS: ATTEND Surgery Vascular Surgery
DX: I70.209 Unspecified atherosclerosis of native arteries of extremities, unspecified extremity (principal)

== ENCOUNTER → 2020-05-27 | Outpatient (REF) | payer MEDICARE, MEDICAID ==
[2020-05-27 15:49] LABS: INR 2.29; PROTHROMBIN TIME 25.7 SECONDS (12.5-14.3)
== END ==
LOC: M LAB REF 14:59
PROVIDERS: ATTEND Family Medicine
DX: Z79.01 Long term (current) use of anticoagulants (principal)

== ENCOUNTER → 2020-07-10 | Outpatient (REF) | payer MEDICARE, MEDICAID ==
[2020-07-10 16:38] LABS: INR 1.63; PROTHROMBIN TIME 19.7 SECONDS (12.5-14.3)
== END ==
LOC: M SFHCADAM 16:14
PROVIDERS: ATTEND Family Medicine
DX: Z79.01 Long term (current) use of anticoagulants (principal)

== ENCOUNTER → 2020-07-24 | Outpatient (REF) | payer MEDICARE, MEDICAID ==
[~2020-07-24] MED LIST changes: -LISI-538 PO; +LISI20TA33 PO
[2020-07-24 14:48] LABS: CHOLESTEROL RISK RATIO 3.738 (<5)
== END ==
LOC: M SHH 13:17
PROVIDERS: ATTEND Physician Assistant
DX: E78.00 Pure hypercholesterolemia, unspecified (principal); Z79.01 Long term (current) use of anticoagulants

== ENCOUNTER → 2020-07-24 | Outpatient (REF) | payer MEDICARE, MEDICAID ==
[2020-07-24 14:30] LABS: INR 3.19; PROTHROMBIN TIME 33.4 SECONDS (12.5-14.3)
== END ==
LOC: M SHH 13:19
PROVIDERS: ATTEND Family Medicine
DX: Z79.01 Long term (current) use of anticoagulants (principal)

== ENCOUNTER → 2020-07-31 | Outpatient (REF) | payer MEDICARE, MEDICAID ==
[2020-07-31 15:42] LABS: INR 3.76
== END ==
LOC: M LAB REF 14:55 → M SHH 14:55
PROVIDERS: ATTEND Family Medicine
DX: Z79.01 Long term (current) use of anticoagulants (principal)

== ENCOUNTER → 2020-08-05 | Outpatient (CLI) | payer MEDICARE, MEDICAID ==
--- NOTE | 2020-08-07 16:27 | SLEEPHOME ---
DATE: 08/05/2020 ORDERED BY: Kimberly Reyes Diagnostic home sleep testing was performed due to concern for the obstructive sleep apnea syndrome in this patient with a history of snoring. For testing, a nocturnal T3 respiratory monitoring device was used. Continuous record was made of pulse, oxygen saturation, air flow, chest and abdominal strain, and body position. Nine hours and 59 minutes of data were reviewed. There were 7 hours and 25 minutes marked as time in bed. During the interval marked time in bed, there were 475 respiratory events identified of 10 seconds in duration or greater for a respiratory event index of 63.9 per hour. The events were more frequently central, 296 central apneas and 40 mixed apneas were seen. Baseline pulse rate was 55. Pulse rate ranged from 31 to 120. Baseline saturation was 92%. Saturations fell as low as 79 and testing was performed in both the supine and nonsupine positions. IMPRESSION: Abnormal home sleep testing with repetitive respiratory events and oxygen desaturations to 79% with a respiratory event index of 63.9 is consistent with complex obstructive sleep apnea syndrome given the frequency of central events. The possibility of Angel-Gaspar respiratory efforts also exists. RECOMMENDATION: Referral for a formal sleep evaluation should be considered given the complex nature of this patient's respiratory difficulty and consideration given to other reversible medical problems such as congestive heart failure which could be responsible for the Angel-Gaspar pattern seen. MD Kong Mckeon MD MTDD
== END ==
LOC: M SLEEP HO 11:09
PROVIDERS: ATTEND Physician Assistant
DX: R06.83 Snoring (principal)

== ENCOUNTER → 2020-08-07 | Outpatient (REF) | payer MEDICARE, MEDICAID ==
[2020-08-07 14:08] LABS: INR 3.71; PROTHROMBIN TIME 37.6 SECONDS (12.5-14.3)
== END ==
LOC: M SFHCPLAZ 13:09
PROVIDERS: ATTEND Family Medicine
DX: Z79.01 Long term (current) use of anticoagulants (principal)

== ENCOUNTER → 2020-08-14 | Outpatient (REF) | payer MEDICARE, MEDICAID ==
[2020-08-14 14:19] LABS: INR 2.25; PROTHROMBIN TIME 25.4 SECONDS (12.5-14.3)
== END ==
LOC: M LAB REF 13:42
PROVIDERS: ATTEND Family Medicine
DX: Z51.81 Encounter for therapeutic drug level monitoring (principal); Z79.01 Long term (current) use of anticoagulants

== ENCOUNTER → 2020-08-28 | Outpatient (REF) | payer MEDICARE, MEDICAID ==
[2020-08-28 17:55] LABS: INR 2.55
== END ==
LOC: M SHH 16:57
PROVIDERS: ATTEND Family Medicine
DX: Z79.01 Long term (current) use of anticoagulants (principal)

== ENCOUNTER → 2020-09-06 | Outpatient (CLI) | payer MEDICARE, MEDICAID ==
[~2020-09-06] MED LIST changes: +FLUO10CA16 PO; +LOSA100T50 PO; +WARF4TAB52 PO; +medical marijuana
== END ==
LOC: M LABSMTC 09:40
PROVIDERS: ATTEND Anesthesiology
DX: Z01.812 Encounter for preprocedural laboratory examination (principal)

== ENCOUNTER 2020-09-10 06:52 | Day surgery (SDC) | payer MEDICARE, MEDICAID ==
[~2020-09-10] VITALS: Ht 182.9 cm; Wt 81.2 kg
[2020-09-10] MEDS ORDERED: NS 1,000 ML IV ONE (07:00)
[2020-09-10] MEDS ORDERED: propofoL 200 MG/20 ML VIAL As Ordered ONE ×2 (07:39→07:43)
--- NOTE | 2020-09-10 08:15 | ROOR ---
Patient Name: Zack Marino Procedure Date: 09/10/2020 7:31 AM Date of : 1960 Age: 60 Room: [facility] Gender: Male Note Status: Finalized Procedure: Colonoscopy Indications: High risk colon cancer surveillance: Personal history of colonic polyps Providers: Alton Sabillon DO Referring MD: Leora BERRY DO Requesting Provider: Medicines: Propofol per Anesthesia Complications: No immediate complications. Procedure: Pre-Anesthesia Assessment: - Prior to the procedure, a History and Physical was performed, and patient medications and allergies were reviewed. The patient is competent. The risks and benefits of the procedure and the sedation options and risks were discussed with the patient. All questions were answered and informed consent was obtained. Patient identification and proposed procedure were verified by the physician, the nurse, the anesthesiologist and the signal technician in the endoscopy suite. Mental Status Examination: alert and oriented. Airway Examination: normal oropharyngeal airway and neck mobility. Respiratory Examination: clear to auscultation. CV Examination: normal. Prophylactic Antibiotics: The patient does not require prophylactic antibiotics. Prior Anticoagulants: The patient has taken anticoagulant medication, last dose was 3 days prior to procedure. ASA Grade Assessment: III - A patient with severe systemic disease. After reviewing the risks and benefits, the patient was deemed in satisfactory condition to undergo the procedure. The anesthesia plan was to use moderate sedation / analgesia (conscious sedation). Immediately prior to administration of medications, the patient was re-assessed for adequacy to receive sedatives. The heart rate, respiratory rate, oxygen saturations, blood pressure, adequacy of pulmonary ventilation, and response to care were monitored throughout the procedure. The physical status of the patient was re-assessed after the procedure. The Colonoscope was introduced through the anus and advanced to the ileocolonic anastomosis. Findings: Internal hemorrhoids were found during retroflexion. The hemorrhoids were moderate, medium-sized and Grade II (internal hemorrhoids that prolapse but reduce spontaneously). Multiple hyperplastic polyps were found in the transverse colon. The polyps were 2 to 7 mm in size. These polyps were removed with a hot snare. Resection and retrieval were complete. Estimated blood loss was minimal. Multiple hyperplastic polyps were found in the sigmoid colon and transverse colon. The polyps were small in size. These polyps were removed with a jumbo cold forceps. Resection and retrieval were complete. Estimated blood loss was minimal. Multiple small and large-mouthed diverticula were found in the sigmoid colon. Impression: - Internal hemorrhoids. - Multiple 2 to 7 mm polyps in the transverse colon, removed with a hot snare. Resected and retrieved. - Multiple small polyps in the sigmoid colon and in the transverse colon, removed with a jumbo cold forceps. Resected and retrieved. - Diverticulosis in the sigmoid colon. Recommendation: - Patient has a contact number available for emergencies. The signs and symptoms of potential delayed complications were discussed with the patient. Return to normal activities tomorrow. Written discharge instructions were provided to the patient. - Resume Plavix (clopidogrel) at prior dose today. - Await pathology results. - Repeat colonoscopy in 3 - 5 years for surveillance based on pathology results. - Return to my office at appointment to be scheduled. Procedure Code(s): --- Professional --- 17915, Colonoscopy, flexible; with removal of tumor(s), polyp(s), or other lesion(s) by snare technique 91545, 59, Colonoscopy, flexible; with biopsy, single or multiple Diagnosis Code(s): --- Professional --- Z86.010, Personal history of colonic polyps K64.1, Second degree hemorrhoids K63.5, Polyp of colon K57.30, Diverticulosis of large intestine without perforation or abscess without bleeding CPT copyright 2019 [employer]. All rights reserved. The codes documented in this report are preliminary and upon brim curler review may be revised to meet current compliance requirements. Alton Sabillon DO 09/10/2020 8:14:37 AM Electronically signed by Alton Sabillon DO Number of Addenda: 0 Note Initiated On: 09/10/2020 7:31 AM Estimated Blood Loss: Estimated blood loss was minimal.
[2020-09-10] MEDS ORDERED: MEPERIDINE INJ 25 MG/ML VIAL (J2175) As Ordered ONE (08:48)
[2020-09-10] MEDS ORDERED: LABETALOL 100MG/20ML VIAL As Ordered ONE (08:48)
[2020-09-10] MEDS ORDERED: ONDANSETRON 4MG/2ML VIAL IV PRN ×2 (08:50→10:20)
[2020-09-10] MEDS ORDERED: LR 1,000 ML IV SCH (08:50)
[2020-09-10] MEDS: MEPERIDINE INJ 25 MG/ML VIAL (J2175) IV PRN ×2 (08:50→09:00)
[2020-09-10] MEDS: LABETALOL 100MG/20ML VIAL IV PRN ×3 (08:55→09:45)
[2020-09-10] MEDS ORDERED: hydrALAZINE 20MG/ML 1ML VIAL (J0360 PER 20MG) IV PRN (08:55)
--- NOTE | 2020-09-10 09:02 | ECGEPIP ---
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
[2020-09-10 09:47] LABS: CALCIUM LEVEL 8.2 MG/DL (8.8-10.2); CREATININE FOR GFR 1.55 MG/DL (0.70-1.30); GLOMERULAR FILTRATION RATE 48.8 (>49); POTASSIUM SERUM 3.8 MEQ/L (3.5-5.1)
[2020-09-10 10:20] VITALS: BP 162/86
[2020-09-10] MEDS ORDERED: ALBUTEROL 90 MCG/ACT 8GM HFA INHALER INH PRN (10:20)
[2020-09-10 12:00] VITALS: O2SAT 94
[2020-09-10 14:00] VITALS: BP 147/84
[2020-09-10] MEDS: **hydrALAZINE** 50 MG TAB PO SCH ×2 (14:38→22:50)
[2020-09-10] MEDS: GABAPENTIN 400MG CAP PO SCH ×2 (16:49→20:41)
[2020-09-10] MEDS ORDERED: WARFARIN SOD 5MG TAB PO SCH (17:00)
[2020-09-10] MEDS ORDERED: WARFARIN SOD 2MG TAB PO SCH (17:00)
[2020-09-10] MEDS: PERCOCET 5MG/325MG TAB PO PRN (20:41)
[2020-09-10 22:00] VITALS: BP 147/97
[2020-09-11] MEDS: **hydrALAZINE** 50 MG TAB PO SCH (05:48)
[2020-09-11] MEDS: PERCOCET 5MG/325MG TAB PO PRN (05:49)
[2020-09-11 06:00] VITALS: BP 167/83
[2020-09-11 08:58] VITALS: BP 152/87
[2020-09-11] MEDS: GABAPENTIN 400MG CAP PO SCH (08:58)
[2020-09-11] MEDS ORDERED: ENOXAPARIN 40MG/0.4ML SYRINGE (J1650 PER 10MG) SC SCH (09:00)
[2020-09-11] MEDS ORDERED: LOSARTAN 50MG TABLET PO SCH (09:00)
[2020-09-11] MEDS ORDERED: amLODIPine 5 MG TAB PO SCH (09:00)
[2020-09-11] MEDS ORDERED: FINASTERIDE 5 MG TAB PO SCH (09:00)
[2020-09-11] MEDS ORDERED: ATORVASTATIN 20 MG TAB PO SCH (09:00)
[2020-09-11] MEDS ORDERED: FLUoxetine 10 MG CAP PO SCH (09:00)
[2020-09-11] MEDS ORDERED: CARVedilol 12.5 MG TAB PO SCH (09:00)
[2020-09-11 09:48] VITALS: O2SAT 95
--- NOTE | 2020-09-11 10:03 | DSES ---
DISCHARGE SUMMARY DATE OF ADMISSION: 09/10/2020 DATE OF DISCHARGE: 09/11/2020 ADMITTING DIAGNOSIS: Hypertension status post colonoscopy. DISCHARGE DIAGNOSIS: Hypertension status post colonoscopy. HISTORY AND HOSPITAL COURSE: Patient is a 60-year-old male who presented on the 10 of September for elective colonoscopy. Post-operatively he had nausea, vomiting and hypertension. No significant cardiac changes as far as EKG is concerned, but due to his hypertension and nausea and vomiting we decided to keep him overnight for observation. This morning he feels great, he is tolerating diet, his blood pressures have been stable on his home medications overnight without any issues. Plan is for discharge home first thing this morning. He will resume all of his home medications and I recommended that he follow up with his primary doctor in 1 week. All of his questions were answered and he will call our office for a follow up appointment for his colonoscopy pathology as well.
== END 2020-09-11 11:04 | disposition home or self-care (01) ==
LOC: M OPP 06:52 → M MSPAV 10:18 → M OPP 09-11 11:04
PROVIDERS: ATTEND Surgery
DX: Z86.010 Personal history of colon polyps (principal); Z09 Encounter for follow-up examination after completed treatment for conditions other than malignant neoplasm; K63.5 Polyp of colon; K57.30 Diverticulosis of large intestine without perforation or abscess without bleeding; K64.1 Second degree hemorrhoids; R03.0 Elevated blood-pressure reading, without diagnosis of hypertension; Z79.899 Other long term (current) drug therapy
CPT/HCPCS: 36415; 45380; 45385; 80048; 88305; 93005; J1650; J2175

== ENCOUNTER → 2020-10-24 | Outpatient (CLI) | payer MEDICARE, MEDICAID ==
--- NOTE | 2020-10-24 12:16 | REP ---
INDICATION: WHEEZE COMPARISON: None. TECHNIQUE: PA/Lateral FINDINGS: Lungs: Clear, no infiltrate. Heart: Normal in size. Mediastinum: There is calcification of the thoracic aorta. The mediastinal silhouette is otherwise unremarkable. Pleural angles: Unremarkable.. Bones and soft tissues: There are mild degenerative changes of the spine without compression deformity. 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 IMPRESSION: No acute pulmonary disease. <Electronically signed by Alton Xiong > 10/24/20 1215
== END ==
LOC: M ADAMS 11:52
PROVIDERS: ATTEND Family Medicine
DX: R06.2 Wheezing (principal); Z79.01 Long term (current) use of anticoagulants
CPT/HCPCS: 71046; 85610; G0463

== ENCOUNTER → 2020-11-13 | Outpatient (REF) | payer MEDICARE, MEDICAID ==
[2020-11-13 17:32] LABS: HEMATOCRIT 45.2 % (42.0-52.0); HEMOGLOBIN 14.3 g/dl (13.5-17.5); MEAN CORPUSCULAR HGB CONC 31.6 g/dl (32.0-36.5); MEAN CORPUSCULAR VOLUME 94.8 fl (80.0-96.0); PLATELET COUNT, AUTOMATED 245 10^3/uL (150-450); RED BLOOD COUNT 4.77 10^6/uL (4.30-6.10); WHITE BLOOD COUNT 8.7 10^3/uL (4.0-10.0)
[2020-11-13 17:44] LABS: CALCIUM LEVEL 9.2 MG/DL (8.8-10.2); CREATININE FOR GFR 1.72 MG/DL (0.70-1.30); GLOMERULAR FILTRATION RATE 43.3 (>49); POTASSIUM SERUM 4.2 MEQ/L (3.5-5.1)
[2020-11-13 18:39] LABS: INR 5.73
== END ==
LOC: M SFHCADAM 13:49
PROVIDERS: ATTEND Family Medicine
DX: Z79.01 Long term (current) use of anticoagulants (principal); Z86.718 Personal history of other venous thrombosis and embolism

== ENCOUNTER → 2021-01-26 | Outpatient (REF) | payer MEDICARE, MEDICAID ==
[~2021-01-26] MED LIST changes: -DOXY100C PO; +DOXY100C3 PO
[2021-01-26 11:33] LABS: INR 0.95; PROTHROMBIN TIME 13.1 SECONDS (12.7-14.5)
== END ==
LOC: M LAB REF 10:49 → M SHH 10:49
PROVIDERS: ATTEND Family Medicine
DX: Z79.01 Long term (current) use of anticoagulants (principal)

== ENCOUNTER → 2021-02-06 | Outpatient (REF) | payer MEDICARE, MEDICAID ==
[2021-02-06 14:13] LABS: INR 2.57
== END ==
LOC: M SFHCADAM 13:24
PROVIDERS: ATTEND Family Medicine
DX: Z79.01 Long term (current) use of anticoagulants (principal)

== ENCOUNTER → 2021-02-26 | Outpatient (REF) | payer MEDICARE, MEDICAID ==
[2021-02-26 15:55] LABS: INR 1.36; PROTHROMBIN TIME 17.2 SECONDS (12.7-14.5)
== END ==
LOC: M SFHCPLAZ 15:12
PROVIDERS: ATTEND Family Medicine
DX: Z79.01 Long term (current) use of anticoagulants (principal)

== ENCOUNTER → 2021-03-12 | Outpatient (REF) | payer MEDICARE, MEDICAID ==
[2021-03-12 15:58] LABS: INR 1.74; PROTHROMBIN TIME 20.7 SECONDS (12.7-14.5)
== END ==
LOC: M SFHCADAM 15:07
PROVIDERS: ATTEND Family Medicine
DX: Z79.01 Long term (current) use of anticoagulants (principal)

== ENCOUNTER → 2021-05-29 | Outpatient (CLI) | payer MEDICARE, MEDICAID ==
[~2021-05-29] MED LIST changes: -FLUO10CA16 PO; +FLUO10CA18 PO; +LOSA100T45 PO; -LOSA100T50 PO
== END ==
LOC: M SOG 14:30
PROVIDERS: ATTEND Orthopaedic Surgery Sports Medicine
DX: M25.521 Pain in right elbow (principal)

== ENCOUNTER → 2021-06-01 | Outpatient (CLI) | payer MEDICARE, MEDICAID | LOC: M RAD 09:21 | PROVIDERS: ATTEND Advanced Practice Midwife | DX: Z89.611 Acquired absence of right leg above knee (principal); I73.9 Peripheral vascular disease, unspecified ==

== ENCOUNTER → 2021-06-19 | Outpatient (CLI) | payer MEDICARE, MEDICAID ==
[~2021-06-19] MED LIST changes: +ISOVUE-370 76% 100ML VIAL As Ordered ONE
== END ==
LOC: M RAD 12:52
PROVIDERS: ATTEND Surgery Vascular Surgery
DX: R93.1 Abnormal findings on diagnostic imaging of heart and coronary circulation (principal); I70.512 Atherosclerosis of nonautologous biological bypass graft(s) of the extremities with intermittent claudication, left leg
CPT/HCPCS: 75635; Q9967

== ENCOUNTER → 2021-06-24 | Outpatient (REF) | payer MEDICARE, MEDICAID ==
[~2021-06-24] MED LIST changes: -ISOVUE-370 76% 100ML VIAL As Ordered ONE
== END ==
LOC: M SFHCADAM 16:08
PROVIDERS: ATTEND Family Medicine
DX: R09.81 Nasal congestion (principal)
CPT/HCPCS: G0463; U0003

== ENCOUNTER → 2021-07-30 | Outpatient (REF) | payer MEDICARE, MEDICAID ==
[2021-07-30 13:56] LABS: BASO # 0.1 10^3/uL (0.0-0.2); BASO % 0.8 % (0.0-1.0); EOS # 0.2 10^3/uL (0.0-0.5); EOS % 2.2 % (0.0-3.0); HEMATOCRIT 49.3 % (42.0-52.0); HEMOGLOBIN 16.2 g/dl (13.5-17.5); LYMPH # 1.9 10^3/uL (1.5-5.0); LYMPH % 18.5 % (24.0-44.0); MEAN CORPUSCULAR HEMOGLOBIN 30.8 pg (27.0-33.0); MEAN CORPUSCULAR HGB CONC 32.9 g/dl (32.0-36.5); MEAN CORPUSCULAR VOLUME 93.7 fl (80.0-96.0); MONO # 0.9 10^3/uL (0.0-0.8); MONO % 8.7 % (2.0-8.0); NEUTROPHILS # 6.9 10^3/uL (1.5-8.5); PLATELET COUNT, AUTOMATED 238 10^3/uL (150-450); RED BLOOD COUNT 5.26 10^6/uL (4.30-6.10); WHITE BLOOD COUNT 10.1 10^3/uL (4.0-10.0)
[2021-07-30 14:33] LABS: ALBUMIN 3.7 GM/DL (3.2-5.2); BILIRUBIN,TOTAL 0.5 MG/DL (0.2-1.0); CHOLESTEROL RISK RATIO 3.418 (<5); CREATININE FOR GFR 1.82 MG/DL (0.70-1.30); GLOMERULAR FILTRATION RATE 40.4 (>49); POTASSIUM SERUM 4.8 MEQ/L (3.5-5.1); TOTAL PROTEIN 7.6 GM/DL (6.4-8.2)
== END ==
LOC: M SFHCADAM 08:05
PROVIDERS: ATTEND Family Medicine
DX: I73.9 Peripheral vascular disease, unspecified (principal); E78.00 Pure hypercholesterolemia, unspecified

== ENCOUNTER → 2021-07-30 | Outpatient (REF) | payer MEDICARE, MEDICAID ==
[2021-07-30 14:49] LABS: CALCIUM LEVEL 8.9 MG/DL (8.8-10.2); CREATININE FOR GFR 1.83 MG/DL (0.70-1.30); GLOMERULAR FILTRATION RATE 40.1 (>49); POTASSIUM SERUM 4.3 MEQ/L (3.5-5.1)
[2021-08-01 00:07] LABS: PSA TOTAL 1.9 ng/mL (0.0-4.0)
== END ==
LOC: M LABDRWAD 13:58
PROVIDERS: ATTEND Urology
DX: R97.20 Elevated prostate specific antigen [PSA] (principal); N28.9 Disorder of kidney and ureter, unspecified

== ENCOUNTER → 2021-08-26 | Outpatient (REF) | payer MEDICARE, MEDICAID ==
[2021-08-26 16:04] LABS: HEMATOCRIT 44.9 % (42.0-52.0); MEAN CORPUSCULAR HEMOGLOBIN 30.2 pg (27.0-33.0); MEAN CORPUSCULAR HGB CONC 33.4 g/dl (32.0-36.5); MEAN CORPUSCULAR VOLUME 90.3 fl (80.0-96.0); PLATELET COUNT, AUTOMATED 217 10^3/uL (150-450); RED BLOOD COUNT 4.97 10^6/uL (4.30-6.10)
[2021-08-26 16:26] LABS: ALBUMIN 3.5 GM/DL (3.2-5.2); BILIRUBIN,TOTAL 0.3 MG/DL (0.2-1.0); CALCIUM LEVEL 8.7 MG/DL (8.8-10.2); CREATININE FOR GFR 1.78 MG/DL (0.70-1.30); GLOMERULAR FILTRATION RATE 41.4 (>49); POTASSIUM SERUM 4.5 MEQ/L (3.5-5.1)
== END ==
LOC: M LABDRWAD 15:35
PROVIDERS: ATTEND Physician Assistant
DX: R94.31 Abnormal electrocardiogram [ECG] [EKG] (principal)

== ENCOUNTER → 2021-10-05 | Outpatient (REF) | payer MEDICARE, MEDICAID | LOC: M SFHCADAM 15:53 | PROVIDERS: ATTEND Family Medicine | DX: R09.81 Nasal congestion (principal) ==

== ENCOUNTER → 2021-11-12 | Outpatient (CLI) | payer MEDICARE, MEDICAID ==
[2021-11-12 17:00] LABS: CALCIUM LEVEL 9.2 MG/DL (8.8-10.2); CREATININE FOR GFR 1.78 MG/DL (0.70-1.30); GLOMERULAR FILTRATION RATE 41.4 (>49)
== END ==
LOC: M ADAMS 14:34
PROVIDERS: ATTEND Urology
DX: N28.89 Other specified disorders of kidney and ureter (principal)

== ENCOUNTER → 2021-11-13 | Outpatient (CLI) | payer MEDICARE, MEDICAID | LOC: M PLARAD 10:39 | PROVIDERS: ATTEND Urology | DX: N28.1 Cyst of kidney, acquired (principal); K76.89 Other specified diseases of liver ==

== ENCOUNTER → 2021-12-18 | Outpatient (CLI) | payer MEDICARE, MEDICAID ==
[~2021-12-18] MED LIST changes: +ISOVUE-370 76% 100ML VIAL As Ordered ONE
== END ==
LOC: M RAD 13:58
PROVIDERS: ATTEND Family Medicine
DX: M79.604 Pain in right leg (principal)
CPT/HCPCS: 73701; Q9967

== ENCOUNTER → 2022-04-19 | Outpatient (REF) | payer MEDICARE, MEDICAID ==
[~2022-04-19] MED LIST changes: -ISOVUE-370 76% 100ML VIAL As Ordered ONE; -LABE100T4 PO; +LABE100T6 PO
[2022-04-19 14:46] LABS: INR 1.22; PROTHROMBIN TIME 15.6 SECONDS (12.5-14.5)
== END ==
LOC: M LAB REF 13:36
PROVIDERS: ATTEND Family Medicine
DX: Z79.01 Long term (current) use of anticoagulants (principal)

== ENCOUNTER → 2022-04-28 | Outpatient (REF) | payer MEDICARE, MEDICAID ==
[2022-04-28 12:24] LABS: INR 3.21; PROTHROMBIN TIME 33.4 SECONDS (12.5-14.5)
== END ==
LOC: M SHH 11:54
PROVIDERS: ATTEND Family Medicine
DX: Z79.01 Long term (current) use of anticoagulants (principal)

== ENCOUNTER → 2022-05-12 | Outpatient (REF) | payer MEDICARE, MEDICAID ==
[2022-05-12 15:08] LABS: INR 2.2; PROTHROMBIN TIME 24.8 SECONDS (12.5-14.5)
== END ==
LOC: M SHH 14:10
PROVIDERS: ATTEND Family Medicine
DX: Z79.01 Long term (current) use of anticoagulants (principal)

== ENCOUNTER → 2022-05-19 | Outpatient (REF) | payer MEDICARE, MEDICAID ==
[2022-05-19 12:07] LABS: INR 4.07; PROTHROMBIN TIME 40.1 SECONDS (12.5-14.5)
== END ==
LOC: M SFHCADAM 11:32 → M SHH 11:32
PROVIDERS: ATTEND Family Medicine
DX: Z79.01 Long term (current) use of anticoagulants (principal)

== ENCOUNTER → 2022-05-26 | Outpatient (REF) | payer MEDICARE, MEDICAID ==
[~2022-05-26] MED LIST changes: +CYMB1CAP5 PO; +GABA-1171 PO; +WARF4TAB51 PO
[2022-05-26 11:23] LABS: INR 2.52; PROTHROMBIN TIME 27.6 SECONDS (12.5-14.5)
== END ==
LOC: M SFHCADAM 10:38
PROVIDERS: ATTEND Family Medicine
DX: Z79.01 Long term (current) use of anticoagulants (principal)

== ENCOUNTER → 2022-05-27 | Outpatient (CLI) | payer MEDICARE, MEDICAID ==
[~2022-05-27] VITALS: Ht 188 cm; Wt 93.6 kg
[2022-05-27 08:38] VITALS: BP 122/67
== END ==
LOC: M PAL 08:27
PROVIDERS: ATTEND Nurse Practitioner Adult Health
DX: J44.9 Chronic obstructive pulmonary disease, unspecified (principal); Z85.038 Personal history of other malignant neoplasm of large intestine; K57.32 Diverticulitis of large intestine without perforation or abscess without bleeding; I10 Essential (primary) hypertension; Z89.611 Acquired absence of right leg above knee; Z86.73 Personal history of transient ischemic attack (TIA), and cerebral infarction without residual deficits; Z95.1 Presence of aortocoronary bypass graft; Z95.4 Presence of other heart-valve replacement; F32.A Depression, unspecified; G89.29 Other chronic pain; T87.89 Other complications of amputation stump; Z79.01 Long term (current) use of anticoagulants; Z79.51 Long term (current) use of inhaled steroids; Z79.899 Other long term (current) drug therapy; Z79.891 Long term (current) use of opiate analgesic

== ENCOUNTER → 2022-06-09 | Outpatient (REF) | payer MEDICARE, MEDICAID ==
[2022-06-09 13:56] LABS: INR 4.53; PROTHROMBIN TIME 43.6 SECONDS (12.5-14.5)
== END ==
LOC: M LAB REF 13:15
PROVIDERS: ATTEND Family Medicine
DX: Z79.01 Long term (current) use of anticoagulants (principal)

== ENCOUNTER → 2022-06-16 | Outpatient (REF) | payer MEDICARE, MEDICAID ==
[~2022-06-16] MED LIST changes: -OXYC-403 PO; -OXYC-404 PO; +OXYC-673 PO; +OXYC20TA64 PO; +WARF-22 PO
[2022-06-16 12:20] LABS: INR 2.07; PROTHROMBIN TIME 23.7 SECONDS (12.5-14.5)
== END ==
LOC: M SHH 11:56
PROVIDERS: ATTEND Family Medicine
DX: Z79.01 Long term (current) use of anticoagulants (principal)

== ENCOUNTER → 2022-06-24 | Outpatient (CLI) | payer MEDICARE, MEDICAID ==
[~2022-06-24] VITALS: Ht 188 cm; Wt 92.4 kg
[~2022-06-24] MED LIST changes: +OXYC-403 PO; +OXYC-404 PO; -OXYC-673 PO; -OXYC20TA64 PO
[2022-06-24 09:02] VITALS: BP 125/82
== END ==
LOC: M PAL 08:44
PROVIDERS: ATTEND Nurse Practitioner Adult Health
DX: J44.9 Chronic obstructive pulmonary disease, unspecified (principal); Z85.038 Personal history of other malignant neoplasm of large intestine; K57.32 Diverticulitis of large intestine without perforation or abscess without bleeding; K62.89 Other specified diseases of anus and rectum; I10 Essential (primary) hypertension; Z86.73 Personal history of transient ischemic attack (TIA), and cerebral infarction without residual deficits; Z89.611 Acquired absence of right leg above knee; Z95.1 Presence of aortocoronary bypass graft; Z95.4 Presence of other heart-valve replacement; Z51.5 Encounter for palliative care; F32.A Depression, unspecified; Z79.01 Long term (current) use of anticoagulants; Z79.51 Long term (current) use of inhaled steroids; Z79.891 Long term (current) use of opiate analgesic; Z79.899 Other long term (current) drug therapy

== ENCOUNTER → 2022-07-01 | Outpatient (REF) | payer MEDICARE, MEDICAID ==
[2022-07-01 10:04] LABS: INR 3.11; PROTHROMBIN TIME 32.5 SECONDS (12.5-14.5)
== END ==
LOC: M SHH 09:27
PROVIDERS: ATTEND Family Medicine
DX: Z79.01 Long term (current) use of anticoagulants (principal)

== ENCOUNTER → 2022-07-07 | Outpatient (REF) | payer MEDICARE, MEDICAID ==
[2022-07-07 12:17] LABS: PROTHROMBIN TIME 39.6 SECONDS (12.5-14.5)
== END ==
LOC: M SHH 11:39
PROVIDERS: ATTEND Family Medicine
DX: Z79.01 Long term (current) use of anticoagulants (principal)

== ENCOUNTER → 2022-07-23 | Outpatient (REF) | payer MEDICARE, MEDICAID ==
[2022-07-23 11:32] LABS: INR 1.36
== END ==
LOC: M SHH 09:10
PROVIDERS: ATTEND Family Medicine
DX: Z79.01 Long term (current) use of anticoagulants (principal)

== ENCOUNTER → 2022-07-30 | Outpatient (REF) | payer MEDICARE, MEDICAID ==
[2022-07-30 12:11] LABS: INR 2.69
== END ==
LOC: M SHH 11:23
PROVIDERS: ATTEND Family Medicine
DX: Z79.01 Long term (current) use of anticoagulants (principal)

== ENCOUNTER → 2022-08-13 | Outpatient (REF) | payer MEDICARE, MEDICAID ==
[~2022-08-13] MED LIST changes: -OXYC-403 PO; -OXYC-404 PO; +OXYC-673 PO; +OXYC20TA64 PO
[2022-08-13 12:39] LABS: INR 2.18; PROTHROMBIN TIME 24.6 SECONDS (12.5-14.5)
== END ==
LOC: M SFHCADAM 10:59
PROVIDERS: ATTEND Family Medicine
DX: Z79.01 Long term (current) use of anticoagulants (principal)

== ENCOUNTER → 2022-09-02 | Outpatient (CLI) | payer MEDICARE, MEDICAID | LOC: M PAL 07:50 | PROVIDERS: ATTEND Nurse Practitioner Adult Health | DX: J44.9 Chronic obstructive pulmonary disease, unspecified (principal); G89.29 Other chronic pain; Z85.00 Personal history of malignant neoplasm of unspecified digestive organ; Z95.5 Presence of coronary angioplasty implant and graft; I73.9 Peripheral vascular disease, unspecified; Z79.01 Long term (current) use of anticoagulants; Z79.899 Other long term (current) drug therapy ==

== ENCOUNTER → 2022-09-03 | Outpatient (REF) | payer MEDICARE, MEDICAID ==
[2022-09-03 14:28] LABS: INR 2.1; PROTHROMBIN TIME 23.9 SECONDS (12.5-14.5)
== END ==
LOC: M SFHCADAM 12:56
PROVIDERS: ATTEND Family Medicine
DX: Z79.01 Long term (current) use of anticoagulants (principal)

== ENCOUNTER → 2022-09-07 | Outpatient (REF) | payer MEDICARE, MEDICAID | LOC: M SFHCADAM 16:37 | PROVIDERS: ATTEND Family Medicine | DX: R05.9 Cough, unspecified (principal) ==

== ENCOUNTER → 2022-10-01 | Outpatient (REF) | payer MEDICARE, MEDICAID ==
[2022-10-01 10:59] LABS: INR 1.81; PROTHROMBIN TIME 21.3 SECONDS (12.5-14.5)
== END ==
LOC: M SFHCADAM 10:25
PROVIDERS: ATTEND Family Medicine
DX: Z79.01 Long term (current) use of anticoagulants (principal)

== ENCOUNTER → 2022-10-08 | Outpatient (REF) | payer MEDICARE, MEDICAID ==
[2022-10-08 17:11] LABS: INR 3.34; PROTHROMBIN TIME 34.4 SECONDS (12.5-14.5)
== END ==
LOC: M SFHCADAM 16:02
PROVIDERS: ATTEND Family Medicine
DX: Z79.01 Long term (current) use of anticoagulants (principal)

== ENCOUNTER → 2022-10-15 | Outpatient (REF) | payer MEDICARE, MEDICAID ==
[~2022-10-15] MED LIST changes: -LOSA100T45 PO; +LOSA100T46 PO
[2022-10-15 11:54] LABS: INR 3.36; PROTHROMBIN TIME 34.5 SECONDS (12.5-14.5)
== END ==
LOC: M LAB REF 10:59
PROVIDERS: ATTEND Family Medicine
DX: Z79.01 Long term (current) use of anticoagulants (principal)

== ENCOUNTER → 2022-10-22 | Outpatient (REF) | payer MEDICARE, MEDICAID ==
[2022-10-22 11:22] LABS: PROTHROMBIN TIME 31.6 SECONDS (12.5-14.5)
== END ==
LOC: M LAB REF 10:20
PROVIDERS: ATTEND Family Medicine
DX: Z79.01 Long term (current) use of anticoagulants (principal)

== ENCOUNTER → 2022-11-03 | Outpatient (REF) | payer MEDICARE, MEDICAID | LOC: M SFHCADAM 13:47 | PROVIDERS: ATTEND Family Medicine | DX: Z53.20 Procedure and treatment not carried out because of patient's decision for unspecified reasons (principal) ==

== ENCOUNTER → 2022-12-09 | Outpatient (REF) | payer MEDICARE, MEDICAID ==
[2022-12-09 13:45] LABS: INR 2.66; PROTHROMBIN TIME 28.8 SECONDS (12.5-14.5)
== END ==
LOC: M LAB REF 12:54
PROVIDERS: ATTEND Family Medicine
DX: Z79.01 Long term (current) use of anticoagulants (principal)

== ENCOUNTER → 2022-12-10 | Outpatient (REF) | payer MEDICARE, MEDICAID ==
[2022-12-10 17:52] LABS: ALBUMIN 3.5 G/DL (3.2-5.2); ALKALINE PHOSPHATASE 70 U/L (46-116); ALT/SGPT < 9 U/L (7.0-40); AST/SGOT 16 U/L (<34); BILIRUBIN,DIRECT < 0.1 MG/DL (<0.4); BILIRUBIN,TOTAL 0.2 MG/DL (0.3-1.2); CHOLESTEROL LEVEL 146 MG/DL (<200); CHOLESTEROL RISK RATIO 3.96 (<5); HDL CHOLESTEROL 36.8 MG/DL (>40); LDL CHOLESTEROL 75.4 MG/DL (<100); NON-HDL-C 109.2 MG/DL; TOTAL PROTEIN 6.6 G/DL (5.7-8.2); TRIGLYCERIDES LEVEL 169 MG/DL (<150)
== END ==
LOC: M LAB REF 16:44
PROVIDERS: ATTEND Physician Assistant
DX: E78.2 Mixed hyperlipidemia (principal)

== ENCOUNTER → 2022-12-22 | Outpatient (REF) | payer MEDICARE, MEDICAID ==
[2022-12-22 12:24] LABS: INR 2.99; PROTHROMBIN TIME 31.5 SECONDS (12.5-14.5)
== END ==
LOC: M SFHCADAM 11:01
PROVIDERS: ATTEND Family Medicine
DX: Z79.01 Long term (current) use of anticoagulants (principal)

== ENCOUNTER 2023-01-24 16:42 | Inpatient (IN) | payer MEDICARE, MEDICAID ==
[~2023-01-24] VITALS: Ht 188 cm; Wt 95.1 kg
[~2023-01-24 16:42] MED LIST changes: +ALBU8.5H INH; +ASPI81TAEC PO; +ATOR80TA59 PO; +CETI-24 PO; +COLA100C5 PO; +DULO30CA9 PO; +ELIQ5TAB PO; +HYDR-3911 PO; +MIRA1POW3 PO; +NEUR100C PO; +SENN-188 PO; +WARF-60 PO
[2023-01-24 18:49] LABS: BASO # 0.1 10^3/uL (0.0-0.2); BASO % 0.6 % (0.0-1.0); EOS # 0.5 10^3/uL (0.0-0.5); EOS % 3.5 % (0.0-3.0); HEMOGLOBIN 9.1 g/dl (13.5-17.5); LYMPH # 1.5 10^3/uL (1.5-5.0); LYMPH % 10.4 % (24.0-44.0); MEAN CORPUSCULAR HEMOGLOBIN 30.6 pg (27.0-33.0); MEAN CORPUSCULAR HGB CONC 31.4 g/dl (32.0-36.5); MEAN CORPUSCULAR VOLUME 97.6 fl (80.0-96.0); MONO # 1.2 10^3/uL (0.0-0.8); MONO % 7.8 % (2.0-8.0); NEUTROPHILS # 10.9 10^3/uL (1.5-8.5); NEUTROPHILS % 74.5 % (36.0-66.0); PLATELET COUNT, AUTOMATED 292 10^3/uL (150-450); RED BLOOD COUNT 2.97 10^6/uL (4.30-6.10); WHITE BLOOD COUNT 14.7 10^3/uL (4.0-10.0)
[2023-01-24] MEDS ORDERED: NS 500 ML IV ONE (19:15)
[2023-01-24 19:19] LABS: ALBUMIN 3.1 G/DL (3.2-5.2); ALKALINE PHOSPHATASE 77 U/L (46-116); ALT/SGPT 15 U/L (7.0-40); AST/SGOT 17 U/L (<34); BILIRUBIN,DIRECT < 0.1 MG/DL (<0.4); BILIRUBIN,TOTAL 0.3 MG/DL (0.3-1.2); BLOOD UREA NITROGEN 31 MG/DL (9-23); CALCIUM LEVEL 9.1 MG/DL (8.3-10.6); CARBON DIOXIDE LEVEL 23 MMOL/L (20-31); CHLORIDE LEVEL 104 MMOL/L (98-107); CREATININE FOR GFR 1.74 MG/DL (0.70-1.30); GLOMERULAR FILTRATION RATE 42.3 (>49); GLUCOSE, FASTING 95 MG/DL (74-106); POTASSIUM SERUM 4.6 MMOL/L (3.5-5.1); SODIUM LEVEL 137 MMOL/L (136-145); TOTAL PROTEIN 6.8 G/DL (5.7-8.2)
[2023-01-24 19:30] LABS: RSV AMPLIFICATION NEGATIVE (NEGATIVE)
[2023-01-24] MEDS: HYDROMORPHONE HCL 0.5 MG/ 0.5 ML SYRINGE IV PRN ×3 (19:39→23:03)
[2023-01-24 20:11] LABS: INR 1.19; PROTHROMBIN TIME 14.7 SECONDS (12.5-14.5)
[2023-01-24 20:12] LABS: PARTIAL THROMBOPLASTIN TIME 33.9 SECONDS (24.8-34.2)
[2023-01-24] MEDS ORDERED: MED REC IN PROGRESS XX SCH (21:00)
[2023-01-24] MEDS ORDERED: HEPARIN DRIP 25,000 UNITS in IV 1 EA IV SCH (21:10)
[2023-01-24] MEDS ORDERED: HEPARIN SOD (PORCINE) 5000UNITS/ML 1ML VIAL/SYRINGE IV ONE (21:10)
[2023-01-24] MEDS ORDERED: HYDR-3911 PO (21:47)
[2023-01-24] MEDS ORDERED: SENN-111 PO (21:47)
[2023-01-24] MEDS ORDERED: OXYC1TAB23 PO (21:47)
[2023-01-24] MEDS ORDERED: ASPI-161 PO (21:47)
[2023-01-24] MEDS ORDERED: AMLO1TAB24 PO (21:47)
[2023-01-24] MEDS ORDERED: CARV25TA PO (21:47)
[2023-01-24] MEDS ORDERED: MIRA3350 PO (21:47)
[2023-01-24] MEDS ORDERED: ELIQ5TAB PO (21:47)
[2023-01-24] MEDS ORDERED: COLA100C5 PO (21:47)
[2023-01-24] MEDS ORDERED: HOME MED LIST COMPLETE! XX SCH (21:50)
[2023-01-25] VITALS (71 sets, daily range): BP systolic 74–182; BP diastolic 50–94; TEMP 97–97.8; O2SAT 86–100
[2023-01-25] MEDS: HYDROMORPHONE HCL 0.5 MG/ 0.5 ML SYRINGE IV PRN ×4 (00:10→09:44)
[2023-01-25] MEDS ORDERED: ONDANSETRON 4MG 2ML VIAL IV PRN (00:55)
[2023-01-25] MEDS ORDERED: HYDROMORPHONE HCL 0.5 MG/ 0.5 ML SYRINGE IV PRN (00:55)
[2023-01-25] MEDS ORDERED: HEPARIN SOD (PORCINE) 5000UNITS/ML 1ML VIAL/SYRINGE IV PRN (00:55)
[2023-01-25] MEDS ORDERED: ALBUTEROL SULFATE 2.5MG/0.5ML INH NEB SOLN NEB PRN (00:55)
[2023-01-25] MEDS ORDERED: NS 1,000 ML IV SCH (00:55)
[2023-01-25] MEDS ORDERED: GABAPENTIN 100 MG CAP PO PRN (00:55)
[2023-01-25] MEDS: IPRATROPIUM 0.5MG/ALBUTEROL 2.5MG INH SOL UD 3ML (DUONEB) NEB SCH ×4 (01:50→20:41)
[2023-01-25 03:21] LABS: HEMOGLOBIN 8.2 g/dl (13.5-17.5); MEAN CORPUSCULAR HEMOGLOBIN 30.8 pg (27.0-33.0); MEAN CORPUSCULAR HGB CONC 31.5 g/dl (32.0-36.5); MEAN CORPUSCULAR VOLUME 97.7 fl (80.0-96.0); PLATELET COUNT, AUTOMATED 279 10^3/uL (150-450); RED BLOOD COUNT 2.66 10^6/uL (4.30-6.10)
[2023-01-25 07:29] LABS: HEMATOCRIT 26.5 % (42.0-52.0); HEMOGLOBIN 8.1 g/dl (13.5-17.5)
[2023-01-25] MEDS ORDERED: CARVedilol 12.5 MG TAB PO SCH (09:00)
[2023-01-25] MEDS: PANTOPRAZOLE 40MG VIAL IV SCH (09:42)
[2023-01-25] MEDS: amLODIPine 5 MG TAB PO SCH (09:44)
[2023-01-25] MEDS: CALCIUM CARBONATE 500 MG CHEW U/D PO SCH (09:44)
[2023-01-25] MEDS: ASPIRIN 81MG ENTERIC TABLET PO SCH (09:44)
[2023-01-25] MEDS: GABAPENTIN 400MG CAP PO SCH ×3 (09:45→17:00)
[2023-01-25] MEDS: **hydrALAZINE HCL** 25 MG TAB PO SCH ×2 (09:45→16:00)
[2023-01-25 09:46] LABS: CALCIUM LEVEL 8.5 MG/DL (8.3-10.6); CREATININE FOR GFR 1.48 MG/DL (0.70-1.30); GLOMERULAR FILTRATION RATE 50.9 (>49); MAGNESIUM LEVEL 1.9 MG/DL (1.8-2.4); PHOSPHORUS LEVEL 3.8 MG/DL (2.4-5.1); POTASSIUM SERUM 3.9 MMOL/L (3.5-5.1)
[2023-01-25] MEDS ORDERED: ISOVUE-370 76% 100ML VIAL As Ordered ONE (11:28)
[2023-01-25] MEDS ORDERED: MIDAZOLAM INJ 2MG/2ML VIAL As Ordered ONE (11:54)
[2023-01-25 12:26] LABS: HEMATOCRIT 33.2 % (42.0-52.0); HEMOGLOBIN 9.9 g/dl (13.5-17.5)
[2023-01-25] MEDS: LR 1,000 ML IV SCH ×2 (12:30→23:08)
[2023-01-25] MEDS ORDERED: ETOMIDATE INJ 20MG/10ML VIAL IV STA (12:30)
[2023-01-25] MEDS ORDERED: ROCURONIUM BROMIDE 50MG/5ML VIAL IV SCH (12:32)
[2023-01-25 12:37] LABS: ABG BASE EXCESS -11.4 (-2.0-2.0); ABG HCO3 13.4 MMOL/L (22.0-26.0); ABG O2 SATURATION 97.9 % (95.0-99.0); ABG PARTIAL PRESSURE O2 112.9 mmHg (75.0-100.0); ABG STANDARD HCO3 15.4 MMOL/L. (22.0-26.0); ABG TOTAL CO2 14.2 MMOL/L (23.0-31.0); ABG pH (ARTERIAL) 7.314 UNITS (7.350-7.450)
[2023-01-25 12:44] LABS: INR 1.18; PROTHROMBIN TIME 14.7 SECONDS (12.5-14.5)
[2023-01-25] MEDS ORDERED: ATROPINE SULF 1MG/10ML SYRINGE ONE (13:00)
[2023-01-25] MEDS ORDERED: FENTANYL DRIP LOCK BOX KEY 1 EACH XX PRN (13:00)
[2023-01-25] MEDS: LORazepam 2 MG/ML 1ML VIAL IV PRN ×3 (13:17→20:28)
[2023-01-25 13:44] LABS: IONIZED CALCIUM 4.6 MG/DL (4.5-5.3)
[2023-01-25 13:52] LABS: BASO # 0.1 10^3/uL (0.0-0.2); BASO % 0.3 % (0.0-1.0); EOS # 0.2 10^3/uL (0.0-0.5); EOS % 0.7 % (0.0-3.0); HEMOGLOBIN 8.9 g/dl (13.5-17.5); LYMPH # 1.4 10^3/uL (1.5-5.0); LYMPH % 5.1 % (24.0-44.0); MEAN CORPUSCULAR HEMOGLOBIN 30.7 pg (27.0-33.0); MEAN CORPUSCULAR HGB CONC 30.7 g/dl (32.0-36.5); MONO # 1.5 10^3/uL (0.0-0.8); MONO % 5.4 % (2.0-8.0); NEUTROPHILS # 22.8 10^3/uL (1.5-8.5); NEUTROPHILS % 83.9 % (36.0-66.0); PLATELET COUNT, AUTOMATED 290 10^3/uL (150-450); WHITE BLOOD COUNT 27.2 10^3/uL (4.0-10.0)
[2023-01-25] MEDS: fentaNYL CITRATE/NaCl 1,000 MCG in IV 1 EA IV SCH (13:56)
[2023-01-25 14:05] LABS: INR 1.13; PROTHROMBIN TIME 14.2 SECONDS (12.5-14.5)
[2023-01-25 14:06] LABS: PARTIAL THROMBOPLASTIN TIME 31.6 SECONDS (24.8-34.2)
[2023-01-25] MEDS ORDERED: LORazepam 2 MG/ML 1ML VIAL IV STA (14:23)
[2023-01-25 14:53] LABS: PROCALCITONIN 0.09 ng/ml
[2023-01-25 14:56] LABS: ALBUMIN 2.5 G/DL (3.2-5.2); BILIRUBIN,TOTAL 0.5 MG/DL (0.3-1.2); CALCIUM LEVEL 8.1 MG/DL (8.3-10.6); CK-MB VALUE MASS 1.4 NG/ML (<3.6); CREATININE FOR GFR 1.69 MG/DL (0.70-1.30); GLOMERULAR FILTRATION RATE 43.7 (>49); MB/CK RELATIVE INDEX 1.38 (< OR =4); PHOSPHORUS LEVEL 6.8 MG/DL (2.4-5.1); POTASSIUM SERUM 4.4 MMOL/L (3.5-5.1); TOTAL PROTEIN 5.5 G/DL (5.7-8.2)
[2023-01-25] MEDS ORDERED: propofoL 200 MG/20 ML VIAL ONE (15:45)
[2023-01-25] MEDS ORDERED: ETOMIDATE INJ 20MG/10ML VIAL ONE (15:45)
[2023-01-25] MEDS ORDERED: ROCURONIUM BROMIDE 50MG/5ML VIAL ONE (15:45)
[2023-01-25] MEDS: HEPARIN DRIP 25,000 UNITS in IV 1 EA IV SCH (16:04)
[2023-01-25] MEDS: FINASTERIDE 5MG TAB NG SCH (19:59)
[2023-01-25] MEDS: ATORVASTATIN 20 MG TAB NG SCH (20:30)
[2023-01-25] MEDS: **hydrALAZINE HCL** 25 MG TAB NG SCH (20:35)
[2023-01-25] MEDS ORDERED: ATORVASTATIN 20 MG TAB PO SCH (21:00)
[2023-01-25] MEDS ORDERED: FINASTERIDE 5MG TAB PO SCH (21:00)
[2023-01-25] MEDS: MIDAZOLAM INJ 2MG/2ML VIAL IV PRN (22:08)
[2023-01-26] VITALS (52 sets, daily range): BP systolic 114–189; BP diastolic 62–95; TEMP 97.8–98.4; O2SAT 88–100
[2023-01-26] MEDS: MIDAZOLAM INJ 2MG/2ML VIAL IV PRN ×13 (00:07→23:55)
[2023-01-26 00:47] LABS: HEMATOCRIT 27.9 % (42.0-52.0); HEMOGLOBIN 8.8 g/dl (13.5-17.5)
[2023-01-26] MEDS: IPRATROPIUM 0.5MG/ALBUTEROL 2.5MG INH SOL UD 3ML (DUONEB) NEB SCH ×4 (01:23→19:17)
[2023-01-26] MEDS: fentaNYL CITRATE/NaCl 1,000 MCG in IV 1 EA IV SCH ×3 (02:28→21:58)
[2023-01-26 04:36] LABS: HEMATOCRIT 26.7 % (42.0-52.0); HEMOGLOBIN 8.2 g/dl (13.5-17.5); MEAN CORPUSCULAR HEMOGLOBIN 30.6 pg (27.0-33.0); MEAN CORPUSCULAR HGB CONC 30.7 g/dl (32.0-36.5); MEAN CORPUSCULAR VOLUME 99.6 fl (80.0-96.0); PLATELET COUNT, AUTOMATED 253 10^3/uL (150-450); RED BLOOD COUNT 2.68 10^6/uL (4.30-6.10); WHITE BLOOD COUNT 12.2 10^3/uL (4.0-10.0)
[2023-01-26 05:04] LABS: ALBUMIN 2.8 G/DL (3.2-5.2); ALKALINE PHOSPHATASE 63 U/L (46-116); ALT/SGPT < 9 U/L (7.0-40); AST/SGOT 19 U/L (<34); BILIRUBIN,TOTAL 0.3 MG/DL (0.3-1.2); BLOOD UREA NITROGEN 21 MG/DL (9-23); CALCIUM LEVEL 8.3 MG/DL (8.3-10.6); CARBON DIOXIDE LEVEL 21 MMOL/L (20-31); CHLORIDE LEVEL 109 MMOL/L (98-107); CREATININE FOR GFR 1.77 MG/DL (0.70-1.30); GLOMERULAR FILTRATION RATE 41.4 (>49); GLUCOSE, FASTING 79 MG/DL (74-106); POTASSIUM SERUM 4.4 MMOL/L (3.5-5.1); SODIUM LEVEL 138 MMOL/L (136-145); TOTAL PROTEIN 5.8 G/DL (5.7-8.2)
[2023-01-26] MEDS: LR 1,000 ML IV SCH ×2 (09:11→18:30)
[2023-01-26] MEDS: GABAPENTIN 400MG CAP PO SCH ×3 (09:11→20:08)
[2023-01-26] MEDS: CALCIUM CARBONATE 500 MG CHEW U/D PO SCH (09:11)
[2023-01-26] MEDS: ASPIRIN 81MG ENTERIC TABLET PO SCH (09:11)
[2023-01-26] MEDS: PANTOPRAZOLE 40MG VIAL IV SCH (09:11)
[2023-01-26] MEDS: **hydrALAZINE HCL** 25 MG TAB NG SCH ×4 (09:12→20:16)
[2023-01-26] MEDS: amLODIPine 5 MG TAB PO SCH (09:12)
[2023-01-26] MEDS ORDERED: ISOVUE-370 76% 100ML VIAL As Ordered ONE (09:52)
[2023-01-26 11:13] LABS: HEMATOCRIT 26.1 % (42.0-52.0); HEMOGLOBIN 8.1 g/dl (13.5-17.5)
[2023-01-26] MEDS ORDERED: MIDAZOLAM INJ 2MG/2ML VIAL IV STA (11:23)
[2023-01-26] MEDS ORDERED: dexmedeTOMIDine (4MCG/ML)200MCG/50ML BTL (PRECEDEX) As Ordered ONE (11:27)
[2023-01-26] MEDS: dexmedeTOMidine 200 MCG in IV 1 EA IV SCH ×3 (11:51→23:10)
[2023-01-26 12:34] LABS: ABG BASE EXCESS -4.1 (-2.0-2.0); ABG HCO3 20.4 MMOL/L (22.0-26.0); ABG PARTIAL PRESSURE O2 80.7 mmHg (75.0-100.0); ABG TOTAL CO2 21.5 MMOL/L (23.0-31.0); ABG pH (ARTERIAL) 7.384 UNITS (7.350-7.450)
[2023-01-26] MEDS: HEPARIN DRIP 25,000 UNITS in IV 1 EA IV SCH (12:40)
[2023-01-26 19:40] LABS: INR 1.05; PROTHROMBIN TIME 13.4 SECONDS (12.5-14.5)
[2023-01-26 19:41] LABS: PARTIAL THROMBOPLASTIN TIME 64.1 SECONDS (24.8-34.2)
[2023-01-26] MEDS: FINASTERIDE 5MG TAB NG SCH (20:08)
[2023-01-26] MEDS: ATORVASTATIN 20 MG TAB NG SCH (20:08)
[2023-01-26 20:10] LABS: INR 1.06; PROTHROMBIN TIME 13.5 SECONDS (12.5-14.5)
[2023-01-26 20:12] LABS: PARTIAL THROMBOPLASTIN TIME 66.3 SECONDS (24.8-34.2)
[2023-01-27] VITALS (63 sets, daily range): BP systolic 101–191; BP diastolic 59–87; TEMP 97.7–99.5; O2SAT 91–100
[2023-01-27] MEDS: IPRATROPIUM 0.5MG/ALBUTEROL 2.5MG INH SOL UD 3ML (DUONEB) NEB SCH ×3 (00:05→13:25)
[2023-01-27] MEDS: MIDAZOLAM INJ 2MG/2ML VIAL IV PRN ×12 (01:44→22:04)
[2023-01-27 02:21] LABS: INR 1.18; PROTHROMBIN TIME 14.7 SECONDS (12.5-14.5)
[2023-01-27 02:23] LABS: PARTIAL THROMBOPLASTIN TIME 75.3 SECONDS (24.8-34.2)
[2023-01-27] MEDS: LR 1,000 ML IV SCH ×2 (03:43→14:48)
[2023-01-27] MEDS: dexmedeTOMidine 200 MCG in IV 1 EA IV SCH ×6 (03:44→22:37)
[2023-01-27] MEDS: HEPARIN DRIP 25,000 UNITS in IV 1 EA IV SCH (03:58)
[2023-01-27 04:53] LABS: HEMOGLOBIN 7.4 g/dl (13.5-17.5); MEAN CORPUSCULAR HEMOGLOBIN 30.8 pg (27.0-33.0); MEAN CORPUSCULAR HGB CONC 30.8 g/dl (32.0-36.5); PLATELET COUNT, AUTOMATED 271 10^3/uL (150-450); WHITE BLOOD COUNT 8.6 10^3/uL (4.0-10.0)
[2023-01-27 06:05] LABS: ALBUMIN 2.5 G/DL (3.2-5.2); BILIRUBIN,TOTAL 0.3 MG/DL (0.3-1.2); CALCIUM LEVEL 8.3 MG/DL (8.3-10.6); CREATININE FOR GFR 1.97 MG/DL (0.70-1.30); GLOMERULAR FILTRATION RATE 36.6 (>49); POTASSIUM SERUM 4.5 MMOL/L (3.5-5.1); TOTAL PROTEIN 5.5 G/DL (5.7-8.2)
[2023-01-27] MEDS: fentaNYL CITRATE/NaCl 1,000 MCG in IV 1 EA IV SCH ×2 (08:08→18:16)
[2023-01-27] MEDS: GABAPENTIN 400MG CAP PO SCH (08:08)
[2023-01-27] MEDS: PANTOPRAZOLE 40MG VIAL IV SCH (08:08)
[2023-01-27 08:24] LABS: ABG BASE EXCESS -2.5 (-2.0-2.0); ABG HCO3 21.9 MMOL/L (22.0-26.0); ABG O2 SATURATION 95.1 % (95.0-99.0); ABG PARTIAL PRESSURE CO2 35.6 mmHg (35.0-45.0); ABG PARTIAL PRESSURE O2 78.2 mmHg (75.0-100.0); ABG STANDARD HCO3 22.4 MMOL/L. (22.0-26.0); ABG pH (ARTERIAL) 7.407 UNITS (7.350-7.450)
[2023-01-27] MEDS: ASPIRIN 81MG ENTERIC TABLET PO SCH (10:06)
[2023-01-27 11:11] LABS: HEMATOCRIT 22.1 % (42.0-52.0)
[2023-01-27 11:17] LABS: HEMOGLOBIN 6.8 g/dl (13.5-17.5)
[2023-01-27 16:42] LABS: INR 1.14; PROTHROMBIN TIME 14.3 SECONDS (12.5-14.5)
[2023-01-27 17:55] LABS: PARTIAL THROMBOPLASTIN TIME 61.5 SECONDS (24.8-34.2)
[2023-01-27] MEDS ORDERED: SENNA 8.6 MG TAB (SENOKOT) PO SCH (21:00)
[2023-01-27] MEDS: FINASTERIDE 5MG TAB NG SCH (21:31)
[2023-01-27] MEDS: ATORVASTATIN 20 MG TAB NG SCH (21:31)
[2023-01-28] VITALS (53 sets, daily range): BP systolic 125–214; BP diastolic 67–127; TEMP 97.4–98.6; O2SAT 83–100
[2023-01-28] MEDS: MIDAZOLAM INJ 2MG/2ML VIAL IV PRN ×12 (00:25→20:05)
[2023-01-28] MEDS: HEPARIN DRIP 25,000 UNITS in IV 1 EA IV SCH ×2 (01:25→19:35)
[2023-01-28 01:26] LABS: INR 1.11
[2023-01-28 01:28] LABS: PARTIAL THROMBOPLASTIN TIME 83.5 SECONDS (24.8-34.2)
[2023-01-28] MEDS: dexmedeTOMidine 200 MCG in IV 1 EA IV SCH ×3 (02:26→08:02)
[2023-01-28] MEDS: LR 1,000 ML IV SCH ×2 (04:13→17:39)
[2023-01-28] MEDS: fentaNYL CITRATE/NaCl 1,000 MCG in IV 1 EA IV SCH (04:23)
[2023-01-28 05:43] LABS: ABG BASE EXCESS -0.7 (-2.0-2.0); ABG HCO3 23.8 MMOL/L (22.0-26.0); ABG O2 SATURATION 98.4 % (95.0-99.0); ABG PARTIAL PRESSURE CO2 38.3 mmHg (35.0-45.0); ABG pH (ARTERIAL) 7.411 UNITS (7.350-7.450)
[2023-01-28 06:16] LABS: HEMATOCRIT 29.7 % (42.0-52.0); MEAN CORPUSCULAR HEMOGLOBIN 30.6 pg (27.0-33.0); MEAN CORPUSCULAR HGB CONC 31.6 g/dl (32.0-36.5); MEAN CORPUSCULAR VOLUME 96.7 fl (80.0-96.0); PLATELET COUNT, AUTOMATED 262 10^3/uL (150-450); RED BLOOD COUNT 3.07 10^6/uL (4.30-6.10); WHITE BLOOD COUNT 7.3 10^3/uL (4.0-10.0)
[2023-01-28 06:32] LABS: HEMOGLOBIN 9.4 g/dl (13.5-17.5)
[2023-01-28 06:36] LABS: INR 1.1; PROTHROMBIN TIME 13.9 SECONDS (12.5-14.5)
[2023-01-28 06:39] LABS: PARTIAL THROMBOPLASTIN TIME 107.2 SECONDS (24.8-34.2)
[2023-01-28] MEDS: PANTOPRAZOLE 40MG VIAL IV SCH (09:00)
[2023-01-28] MEDS: ASPIRIN 81MG ENTERIC TABLET PO SCH (09:00)
[2023-01-28] MEDS: MIDAZOLAM 100MG/100ML-0.9%NACL 100 MG in IV 1 EA IV SCH ×2 (09:49→23:22)
[2023-01-28 12:01] LABS: ALBUMIN 2.4 G/DL (3.2-5.2); BILIRUBIN,TOTAL 0.5 MG/DL (0.3-1.2); CALCIUM LEVEL 8.4 MG/DL (8.3-10.6); CREATININE FOR GFR 1.8 MG/DL (0.70-1.30); GLOMERULAR FILTRATION RATE 40.6 (>49); MAGNESIUM LEVEL 1.8 MG/DL (1.8-2.4); POTASSIUM SERUM 4.2 MMOL/L (3.5-5.1); TOTAL PROTEIN 5.5 G/DL (5.7-8.2)
[2023-01-28] MEDS ORDERED: LABETALOL 100MG/20ML VIAL IV PRN ×2 (16:10→22:10)
[2023-01-28] MEDS ORDERED: LABETALOL 100MG/20ML VIAL IV STA ×2 (17:34→20:12)
[2023-01-28] MEDS: hydrALAZINE 20MG/ML 1ML VIAL IV SCH (19:35)
[2023-01-28] MEDS: ATORVASTATIN 20 MG TAB NG SCH (20:57)
[2023-01-28] MEDS ORDERED: LABETALOL 100MG/20ML VIAL IV SCH (22:00)
[2023-01-28] MEDS: LABETALOL 100MG/20ML VIAL IV SCH (22:16)
[2023-01-29] VITALS (34 sets, daily range): BP systolic 137–195; BP diastolic 73–95; TEMP 97.5–98.9; O2SAT 90–100
[2023-01-29] MEDS: hydrALAZINE 20MG/ML 1ML VIAL IV SCH ×4 (01:39→20:02)
[2023-01-29] MEDS: MIDAZOLAM INJ 2MG/2ML VIAL IV PRN ×7 (01:40→23:05)
[2023-01-29] MEDS: LABETALOL 100MG/20ML VIAL IV SCH ×4 (03:59→21:51)
[2023-01-29 04:17] LABS: HEMATOCRIT 30.7 % (42.0-52.0); HEMOGLOBIN 9.9 g/dl (13.5-17.5); MEAN CORPUSCULAR HEMOGLOBIN 30.7 pg (27.0-33.0); MEAN CORPUSCULAR HGB CONC 32.2 g/dl (32.0-36.5); MEAN CORPUSCULAR VOLUME 95.3 fl (80.0-96.0); PLATELET COUNT, AUTOMATED 255 10^3/uL (150-450); RED BLOOD COUNT 3.22 10^6/uL (4.30-6.10); WHITE BLOOD COUNT 7.7 10^3/uL (4.0-10.0)
[2023-01-29 04:50] LABS: INR 1.12; PROTHROMBIN TIME 14.1 SECONDS (12.5-14.5)
[2023-01-29 04:52] LABS: PARTIAL THROMBOPLASTIN TIME 85.3 SECONDS (24.8-34.2)
[2023-01-29 06:03] LABS: ABG BASE EXCESS 3.3 (-2.0-2.0); ABG HCO3 26.5 MMOL/L (22.0-26.0); ABG O2 SATURATION 98.4 % (95.0-99.0); ABG PARTIAL PRESSURE CO2 35.1 mmHg (35.0-45.0); ABG PARTIAL PRESSURE O2 125.7 mmHg (75.0-100.0); ABG STANDARD HCO3 27.5 MMOL/L. (22.0-26.0); ABG TOTAL CO2 27.6 MMOL/L (23.0-31.0); ABG pH (ARTERIAL) 7.496 UNITS (7.350-7.450)
[2023-01-29 06:16] LABS: ALBUMIN 2.2 G/DL (3.2-5.2); BILIRUBIN,TOTAL 0.3 MG/DL (0.3-1.2); CREATININE FOR GFR 1.62 MG/DL (0.70-1.30); GLOMERULAR FILTRATION RATE 45.9 (>49); MAGNESIUM LEVEL 1.7 MG/DL (1.8-2.4); TOTAL PROTEIN 5.3 G/DL (5.7-8.2)
[2023-01-29] MEDS: ALBUTEROL SULFATE 2.5MG/0.5ML INH NEB SOLN NEB SCH ×3 (08:00→19:57)
[2023-01-29] MEDS: PANTOPRAZOLE 40MG VIAL IV SCH (08:22)
[2023-01-29] MEDS: ASPIRIN 81MG ENTERIC TABLET PO SCH (08:22)
[2023-01-29] MEDS: LR 1,000 ML IV SCH ×2 (08:22→23:44)
[2023-01-29] MEDS ORDERED: MAG SULF 1GM/100ML (MAG RUN) 1 GM in IV 1 EA IV ONE (09:00)
[2023-01-29] MEDS: BISACODYL 10MG SUPP PR SCH (11:35)
[2023-01-29] MEDS: SIMETHICONE 40MG/0.6ML DROPS 30ML NG SCH ×4 (11:36→20:02)
[2023-01-29] MEDS: HEPARIN DRIP 25,000 UNITS in IV 1 EA IV SCH (13:15)
[2023-01-29] MEDS: MIDAZOLAM 100MG/100ML-0.9%NACL 100 MG in IV 1 EA IV SCH (16:15)
[2023-01-29] MEDS: ATORVASTATIN 20 MG TAB NG SCH (20:02)
[2023-01-30] VITALS (31 sets, daily range): BP systolic 131–176; BP diastolic 63–83; TEMP 97.4–98.7; O2SAT 93–100
[2023-01-30] MEDS: hydrALAZINE 20MG/ML 1ML VIAL IV SCH ×4 (01:15→20:06)
[2023-01-30] MEDS: MIDAZOLAM INJ 2MG/2ML VIAL IV PRN ×2 (01:15→04:27)
[2023-01-30] MEDS: HEPARIN DRIP 25,000 UNITS in IV 1 EA IV SCH ×2 (02:31→15:56)
[2023-01-30] MEDS: ALBUTEROL SULFATE 2.5MG/0.5ML INH NEB SOLN NEB SCH ×4 (03:04→19:23)
[2023-01-30] MEDS: LABETALOL 100MG/20ML VIAL IV SCH ×4 (04:25→22:13)
[2023-01-30 05:03] LABS: HEMATOCRIT 27.3 % (42.0-52.0); HEMOGLOBIN 8.6 g/dl (13.5-17.5); MEAN CORPUSCULAR HEMOGLOBIN 30.6 pg (27.0-33.0); MEAN CORPUSCULAR HGB CONC 31.5 g/dl (32.0-36.5); MEAN CORPUSCULAR VOLUME 97.2 fl (80.0-96.0); PLATELET COUNT, AUTOMATED 260 10^3/uL (150-450); RED BLOOD COUNT 2.81 10^6/uL (4.30-6.10); WHITE BLOOD COUNT 7.7 10^3/uL (4.0-10.0)
[2023-01-30 05:48] LABS: INR 1.29; PROTHROMBIN TIME 15.7 SECONDS (12.5-14.5)
[2023-01-30 05:50] LABS: PARTIAL THROMBOPLASTIN TIME 71.6 SECONDS (24.8-34.2)
[2023-01-30] MEDS: MIDAZOLAM 100MG/100ML-0.9%NACL 100 MG in IV 1 EA IV SCH ×2 (05:53→20:27)
[2023-01-30 06:03] LABS: ABG BASE EXCESS 4.1 (-2.0-2.0); ABG HCO3 27.7 MMOL/L (22.0-26.0); ABG O2 SATURATION 96.5 % (95.0-99.0); ABG PARTIAL PRESSURE CO2 37.4 mmHg (35.0-45.0); ABG PARTIAL PRESSURE O2 85.2 mmHg (75.0-100.0); ABG STANDARD HCO3 28.1 MMOL/L. (22.0-26.0); ABG TOTAL CO2 28.8 MMOL/L (23.0-31.0); ABG pH (ARTERIAL) 7.487 UNITS (7.350-7.450)
[2023-01-30 06:11] LABS: BILIRUBIN,TOTAL 0.2 MG/DL (0.3-1.2); CALCIUM LEVEL 7.6 MG/DL (8.3-10.6); CREATININE FOR GFR 1.51 MG/DL (0.70-1.30); GLOMERULAR FILTRATION RATE 49.8 (>49)
[2023-01-30] MEDS: ASPIRIN 81MG ENTERIC TABLET PO SCH (09:08)
[2023-01-30] MEDS: amLODIPine 5 MG TAB PO SCH (09:09)
[2023-01-30] MEDS: SIMETHICONE 40MG/0.6ML DROPS 30ML NG SCH ×4 (09:09→20:07)
[2023-01-30] MEDS: BISACODYL 10MG SUPP PR SCH (09:09)
[2023-01-30] MEDS: PANTOPRAZOLE 40MG VIAL IV SCH (09:09)
[2023-01-30] MEDS: LR 1,000 ML IV SCH (15:56)
[2023-01-30] MEDS: ATORVASTATIN 20 MG TAB NG SCH (20:06)
[2023-01-31] VITALS (28 sets, daily range): BP systolic 125–196; BP diastolic 72–94; TEMP 97.2–99.6; O2SAT 93–100
[2023-01-31] MEDS: ALBUTEROL SULFATE 2.5MG/0.5ML INH NEB SOLN NEB SCH ×4 (01:08→20:40)
[2023-01-31] MEDS: hydrALAZINE 20MG/ML 1ML VIAL IV SCH ×4 (02:13→20:00)
[2023-01-31] MEDS: LABETALOL 100MG/20ML VIAL IV SCH ×4 (04:32→22:31)
[2023-01-31 05:57] LABS: ABG BASE EXCESS 3.2 (-2.0-2.0); ABG O2 SATURATION 95.6 % (95.0-99.0); ABG PARTIAL PRESSURE CO2 32.6 mmHg (35.0-45.0); ABG PARTIAL PRESSURE O2 79.2 mmHg (75.0-100.0); ABG STANDARD HCO3 27.3 MMOL/L. (22.0-26.0); ABG pH (ARTERIAL) 7.519 UNITS (7.350-7.450)
[2023-01-31 06:22] LABS: HEMATOCRIT 27.4 % (42.0-52.0); HEMOGLOBIN 8.4 g/dl (13.5-17.5); MEAN CORPUSCULAR HEMOGLOBIN 29.9 pg (27.0-33.0); MEAN CORPUSCULAR HGB CONC 30.7 g/dl (32.0-36.5); MEAN CORPUSCULAR VOLUME 97.5 fl (80.0-96.0); PLATELET COUNT, AUTOMATED 276 10^3/uL (150-450); RED BLOOD COUNT 2.81 10^6/uL (4.30-6.10); WHITE BLOOD COUNT 6.8 10^3/uL (4.0-10.0)
[2023-01-31 06:23] LABS: INR 1.19; PROTHROMBIN TIME 14.8 SECONDS (12.5-14.5)
[2023-01-31 06:24] LABS: PARTIAL THROMBOPLASTIN TIME 60.6 SECONDS (24.8-34.2)
[2023-01-31] MEDS: HEPARIN DRIP 25,000 UNITS in IV 1 EA IV SCH ×3 (06:29→21:05)
[2023-01-31 06:55] LABS: BILIRUBIN,TOTAL 0.3 MG/DL (0.3-1.2); CALCIUM LEVEL 7.7 MG/DL (8.3-10.6); CREATININE FOR GFR 1.53 MG/DL (0.70-1.30); MAGNESIUM LEVEL 1.9 MG/DL (1.8-2.4); PHOSPHORUS LEVEL 4.1 MG/DL (2.4-5.1); POTASSIUM SERUM 3.8 MMOL/L (3.5-5.1); TOTAL PROTEIN 5.1 G/DL (5.7-8.2)
[2023-01-31] MEDS: MIDAZOLAM INJ 2MG/2ML VIAL IV PRN (08:26)
[2023-01-31] MEDS: PANTOPRAZOLE 40MG VIAL IV SCH (08:28)
[2023-01-31] MEDS: BISACODYL 10MG SUPP PR SCH ×2 (08:28→20:55)
[2023-01-31] MEDS: SIMETHICONE 40MG/0.6ML DROPS 30ML NG SCH ×4 (08:29→20:52)
[2023-01-31] MEDS: amLODIPine 5 MG TAB PO SCH (08:29)
[2023-01-31] MEDS: DOCUSATE SOD LIQ 100MG/10ML UDC NG SCH ×3 (08:33→20:52)
[2023-01-31] MEDS: ASPIRIN 81MG CHEW TABLET PO SCH (08:34)
[2023-01-31] MEDS ORDERED: fentaNYL 100 MCG/2 ML INJECTION As Ordered ONE (08:41)
[2023-01-31] MEDS ORDERED: fentaNYL 100 MCG/2 ML INJECTION IV ONE (09:00)
[2023-01-31] MEDS: LR 1,000 ML IV SCH (09:01)
[2023-01-31] MEDS: propofoL 1,000 MG in IV 1 EA IV SCH (09:09)
[2023-01-31] MEDS ORDERED: LIDOCAINE 1% MDV 20ML VIAL As Ordered ONE ×2 (10:22→15:23)
[2023-01-31] MEDS ORDERED: ISOVUE-M 300 61% 15ML VIAL As Ordered ONE (10:22)
[2023-01-31] MEDS ORDERED: THROMBIN 20,000 UNITS KIT As Ordered ONE (10:22)
[2023-01-31] MEDS ORDERED: HEPARIN SOD (PORCINE) 5000UNITS/ML 1ML VIAL/SYRINGE As Ordered ONE ×2 (10:22→15:24)
[2023-01-31] MEDS ORDERED: ISOVUE-300 61% 100ML VIAL As Ordered ONE ×2 (10:23→15:20)
[2023-01-31] MEDS: MIDAZOLAM 100MG/100ML-0.9%NACL 100 MG in IV 1 EA IV SCH (12:00)
[2023-01-31 13:26] LABS: INR 1.17; PROTHROMBIN TIME 14.6 SECONDS (12.5-14.5)
[2023-01-31 13:28] LABS: PARTIAL THROMBOPLASTIN TIME 68.6 SECONDS (24.8-34.2)
[2023-01-31] MEDS ORDERED: HYDROmorphone HCL 2MG/ML 1ML VIAL As Ordered ONE (15:03)
[2023-01-31] MEDS ORDERED: ROCURONIUM BROMIDE 50MG/5ML VIAL As Ordered ONE ×3 (15:04→17:09)
[2023-01-31] MEDS ORDERED: propofoL 200 MG/20 ML VIAL As Ordered ONE (15:04)
[2023-01-31] MEDS ORDERED: MIDAZOLAM 5MG/ML 1ML VIAL As Ordered ONE (15:36)
[2023-01-31] MEDS ORDERED: ceFAZolin 2 GM/D5W 50 ML IV BAG As Ordered ONE (16:50)
[2023-01-31] MEDS ORDERED: LABETALOL 100MG/20ML VIAL As Ordered ONE (17:00)
[2023-01-31] MEDS ORDERED: PAPAVERINE HCL 60MG 2ML VIAL (30MG/ML) As Ordered ONE ×2 (17:43→17:49)
[2023-01-31] MEDS ORDERED: PHENYLephrine 500MCG 5ML (100MCG/ML) SYRINGE As Ordered ONE (18:47)
[2023-01-31] MEDS ORDERED: LR 1,000 ML IV SCH (19:00)
[2023-01-31] MEDS ORDERED: HYDROMORPHONE HCL 0.5 MG/ 0.5 ML SYRINGE IV PRN (19:00)
[2023-01-31] MEDS ORDERED: fentaNYL 100 MCG/2 ML INJECTION IV PRN (19:00)
[2023-01-31] MEDS ORDERED: oxyCODONE 5MG TAB PO PRN (19:00)
[2023-01-31] MEDS ORDERED: ONDANSETRON 4MG 2ML VIAL IV PRN (19:00)
[2023-01-31] MEDS ORDERED: PROPOFOL 1,000 MG/100 ML VIAL As Ordered ONE (19:16)
[2023-01-31 19:52] LABS: HEMATOCRIT 34.7 % (42.0-52.0); MEAN CORPUSCULAR HEMOGLOBIN 29.6 pg (27.0-33.0); MEAN CORPUSCULAR HGB CONC 30.5 g/dl (32.0-36.5); MEAN CORPUSCULAR VOLUME 96.9 fl (80.0-96.0); PLATELET COUNT, AUTOMATED 234 10^3/uL (150-450); RED BLOOD COUNT 3.58 10^6/uL (4.30-6.10); WHITE BLOOD COUNT 5.4 10^3/uL (4.0-10.0)
[2023-01-31 20:09] LABS: HEMOGLOBIN 10.6 g/dl (13.5-17.5)
[2023-01-31 20:11] LABS: INR 1.33; PROTHROMBIN TIME 16.1 SECONDS (12.5-14.5)
[2023-01-31] MEDS: ATORVASTATIN 20 MG TAB NG SCH (20:53)
[2023-01-31] MEDS: FLEET OIL RETENTION ENEMA PR SCH (20:58)
[2023-01-31 21:22] LABS: CALCIUM LEVEL 7.6 MG/DL (8.3-10.6); CREATININE FOR GFR 1.58 MG/DL (0.70-1.30); GLOMERULAR FILTRATION RATE 47.2 (>49); PHOSPHORUS LEVEL 6.4 MG/DL (2.4-5.1); POTASSIUM SERUM 4.5 MMOL/L (3.5-5.1)
[2023-01-31 21:53] LABS: PARTIAL THROMBOPLASTIN TIME 125.3 SECONDS (24.8-34.2)
[2023-02-01] VITALS (39 sets, daily range): BP systolic 114–187; BP diastolic 64–96; TEMP 97–99.9; O2SAT 94–100
[2023-02-01] MEDS: ALBUTEROL SULFATE 2.5MG/0.5ML INH NEB SOLN NEB SCH ×4 (01:28→19:55)
[2023-02-01] MEDS: ceFAZolin SOD 2 GM in IV 1 EA IV SCH ×3 (02:11→17:57)
[2023-02-01] MEDS: hydrALAZINE 20MG/ML 1ML VIAL IV SCH ×4 (02:12→20:44)
[2023-02-01 04:24] LABS: HEMATOCRIT 31.4 % (42.0-52.0); HEMOGLOBIN 9.9 g/dl (13.5-17.5); MEAN CORPUSCULAR HEMOGLOBIN 29.6 pg (27.0-33.0); MEAN CORPUSCULAR HGB CONC 31.5 g/dl (32.0-36.5); MEAN CORPUSCULAR VOLUME 93.7 fl (80.0-96.0); PLATELET COUNT, AUTOMATED 243 10^3/uL (150-450); RED BLOOD COUNT 3.35 10^6/uL (4.30-6.10); WHITE BLOOD COUNT 7.8 10^3/uL (4.0-10.0)
[2023-02-01] MEDS: LABETALOL 100MG/20ML VIAL IV SCH ×4 (04:30→22:00)
[2023-02-01 04:49] LABS: INR 1.24; PROTHROMBIN TIME 15.3 SECONDS (12.5-14.5)
[2023-02-01 04:50] LABS: PARTIAL THROMBOPLASTIN TIME 57.9 SECONDS (24.8-34.2)
[2023-02-01] MEDS: HEPARIN DRIP 25,000 UNITS in IV 1 EA IV SCH ×2 (05:07→11:39)
[2023-02-01 05:26] LABS: BILIRUBIN,TOTAL 0.4 MG/DL (0.3-1.2); CALCIUM LEVEL 7.7 MG/DL (8.3-10.6); CREATININE FOR GFR 1.51 MG/DL (0.70-1.30); GLOMERULAR FILTRATION RATE 49.8 (>49); POTASSIUM SERUM 4.1 MMOL/L (3.5-5.1)
[2023-02-01 05:45] LABS: ABG BASE EXCESS 1.4 (-2.0-2.0); ABG HCO3 24.1 MMOL/L (22.0-26.0); ABG O2 SATURATION 98.6 % (95.0-99.0); ABG PARTIAL PRESSURE CO2 31.5 mmHg (35.0-45.0); ABG PARTIAL PRESSURE O2 128.7 mmHg (75.0-100.0); ABG STANDARD HCO3 25.7 MMOL/L. (22.0-26.0); ABG pH (ARTERIAL) 7.501 UNITS (7.350-7.450)
[2023-02-01] MEDS: MIDAZOLAM 100MG/100ML-0.9%NACL 100 MG in IV 1 EA IV SCH (06:22)
[2023-02-01] MEDS: propofoL 1,000 MG in IV 1 EA IV SCH (07:14)
[2023-02-01] MEDS: dexmedeTOMidine 200 MCG in IV 1 EA IV SCH ×4 (07:36→22:43)
[2023-02-01] MEDS: BISACODYL 10MG SUPP PR SCH (09:00)
[2023-02-01] MEDS: DOCUSATE SOD LIQ 100MG/10ML UDC NG SCH ×4 (09:00→21:00)
[2023-02-01] MEDS: ASPIRIN 81MG CHEW TABLET PO SCH (09:01)
[2023-02-01] MEDS: PANTOPRAZOLE 40MG VIAL IV SCH (09:01)
[2023-02-01] MEDS: SIMETHICONE 40MG/0.6ML DROPS 30ML NG SCH ×4 (09:02→20:56)
[2023-02-01] MEDS ORDERED: fentaNYL 100 MCG/2 ML INJECTION As Ordered ONE (09:34)
[2023-02-01] MEDS ORDERED: fentaNYL 100 MCG/2 ML INJECTION IV ONE (09:35)
[2023-02-01] MEDS: FLEET OIL RETENTION ENEMA PR SCH (11:13)
[2023-02-01 12:16] LABS: INR 1.26; PROTHROMBIN TIME 15.4 SECONDS (12.5-14.5)
[2023-02-01 12:46] LABS: PARTIAL THROMBOPLASTIN TIME 63.2 SECONDS (24.8-34.2)
[2023-02-01] MEDS ORDERED: SODIUM CHLORIDE HYPERTONIC 3% 4ML NEB SOL INH SCH (14:00)
[2023-02-01] MEDS: fentaNYL 100 MCG/2 ML INJECTION IV PRN ×3 (19:10→22:50)
[2023-02-01] MEDS: SODIUM CHLORIDE HYPERTONIC 3% 15ML NEB SOL INH SCH (19:55)
[2023-02-01] MEDS: ATORVASTATIN 20 MG TAB NG SCH (20:43)
[2023-02-02] VITALS (38 sets, daily range): BP systolic 112–187; BP diastolic 58–86; TEMP 97.6–100.6; O2SAT 93–99
[2023-02-02] MEDS: HEPARIN DRIP 25,000 UNITS in IV 1 EA IV SCH ×2 (00:11→12:19)
[2023-02-02] MEDS: fentaNYL 100 MCG/2 ML INJECTION IV PRN ×6 (00:24→21:05)
[2023-02-02] MEDS: dexmedeTOMidine 200 MCG in IV 1 EA IV SCH ×8 (00:51→23:37)
[2023-02-02] MEDS: ceFAZolin SOD 2 GM in IV 1 EA IV SCH ×3 (00:51→16:15)
[2023-02-02] MEDS: ALBUTEROL SULFATE 2.5MG/0.5ML INH NEB SOLN NEB SCH ×4 (01:24→19:20)
[2023-02-02] MEDS: SODIUM CHLORIDE HYPERTONIC 3% 15ML NEB SOL INH SCH ×4 (01:24→19:21)
[2023-02-02] MEDS: hydrALAZINE 20MG/ML 1ML VIAL IV SCH ×2 (02:00→08:21)
[2023-02-02] MEDS: LABETALOL 100MG/20ML VIAL IV SCH ×2 (04:00→23:09)
[2023-02-02 06:40] LABS: HEMOGLOBIN 8.5 g/dl (13.5-17.5); MEAN CORPUSCULAR HEMOGLOBIN 29.7 pg (27.0-33.0); MEAN CORPUSCULAR HGB CONC 31.5 g/dl (32.0-36.5); MEAN CORPUSCULAR VOLUME 94.4 fl (80.0-96.0); PLATELET COUNT, AUTOMATED 240 10^3/uL (150-450); RED BLOOD COUNT 2.86 10^6/uL (4.30-6.10); WHITE BLOOD COUNT 7.7 10^3/uL (4.0-10.0)
[2023-02-02 07:08] LABS: ALKALINE PHOSPHATASE 44 U/L (46-116); ALT/SGPT < 9 U/L (7.0-40); AST/SGOT 47 U/L (<34); BILIRUBIN,TOTAL 0.3 MG/DL (0.3-1.2); BLOOD UREA NITROGEN 20 MG/DL (9-23); CALCIUM LEVEL 7.9 MG/DL (8.3-10.6); CARBON DIOXIDE LEVEL 25 MMOL/L (20-31); CHLORIDE LEVEL 109 MMOL/L (98-107); CREATININE FOR GFR 1.51 MG/DL (0.70-1.30); GLOMERULAR FILTRATION RATE 49.8 (>49); GLUCOSE, FASTING 91 MG/DL (74-106); POTASSIUM SERUM 3.7 MMOL/L (3.5-5.1); SODIUM LEVEL 143 MMOL/L (136-145); TOTAL PROTEIN 5.4 G/DL (5.7-8.2)
[2023-02-02] MEDS: PANTOPRAZOLE 40MG VIAL IV SCH (08:20)
[2023-02-02] MEDS: ASPIRIN 81MG CHEW TABLET PO SCH (08:21)
[2023-02-02] MEDS: SIMETHICONE 40MG/0.6ML DROPS 30ML NG SCH (08:22)
[2023-02-02] MEDS: MIDAZOLAM INJ 2MG/2ML VIAL IV PRN ×6 (11:32→23:00)
[2023-02-02 11:34] LABS: CHOLESTEROL LEVEL 82 MG/DL (<200); HDL CHOLESTEROL 32.7 MG/DL (>40); LDL CHOLESTEROL 26.1 MG/DL (<100); NON-HDL-C 49.3 MG/DL; TRIGLYCERIDES LEVEL 116 MG/DL (<150)
[2023-02-02] MEDS ORDERED: LABETALOL 100MG/20ML VIAL IV PRN ×2 (11:35→20:30)
[2023-02-02] MEDS: ATORVASTATIN 20 MG TAB NG SCH (20:25)
[2023-02-03] VITALS (37 sets, daily range): BP systolic 144–196; BP diastolic 65–88; TEMP 97.3–100.2; O2SAT 91–98
[2023-02-03] MEDS: SODIUM CHLORIDE HYPERTONIC 3% 15ML NEB SOL INH SCH ×3 (00:29→13:41)
[2023-02-03] MEDS: ALBUTEROL SULFATE 2.5MG/0.5ML INH NEB SOLN NEB SCH ×4 (00:29→19:02)
[2023-02-03] MEDS: MIDAZOLAM INJ 2MG/2ML VIAL IV PRN ×3 (01:08→03:48)
[2023-02-03] MEDS: ceFAZolin SOD 2 GM in IV 1 EA IV SCH ×3 (01:08→16:35)
[2023-02-03] MEDS: dexmedeTOMidine 200 MCG in IV 1 EA IV SCH ×2 (01:09→05:38)
[2023-02-03] MEDS: fentaNYL 100 MCG/2 ML INJECTION IV PRN ×4 (03:48→23:54)
[2023-02-03] MEDS: hydrALAZINE 20MG/ML 1ML VIAL IV PRN ×4 (03:49→22:08)
[2023-02-03] MEDS: LABETALOL 100MG/20ML VIAL IV SCH ×4 (05:37→23:35)
[2023-02-03 06:46] LABS: HEMATOCRIT 26.4 % (42.0-52.0); HEMOGLOBIN 8.1 g/dl (13.5-17.5); MEAN CORPUSCULAR HEMOGLOBIN 29.2 pg (27.0-33.0); MEAN CORPUSCULAR HGB CONC 30.7 g/dl (32.0-36.5); MEAN CORPUSCULAR VOLUME 95.3 fl (80.0-96.0); PLATELET COUNT, AUTOMATED 262 10^3/uL (150-450); RED BLOOD COUNT 2.77 10^6/uL (4.30-6.10); WHITE BLOOD COUNT 8.4 10^3/uL (4.0-10.0)
[2023-02-03 07:16] LABS: CALCIUM LEVEL 7.8 MG/DL (8.3-10.6); CREATININE FOR GFR 1.36 MG/DL (0.70-1.30); GLOMERULAR FILTRATION RATE 56.2 (>49); POTASSIUM SERUM 3.7 MMOL/L (3.5-5.1)
[2023-02-03 07:32] LABS: EOSINOPHILS 4 % (0-3); LYMPHOCYTES 14 % (16-44); MONOCYTES 4 % (0-5); NEUTROPHILS 77 % (28-66); PLATELET ESTIMATE NORMAL (NORMAL)
[2023-02-03 07:33] LABS: ANISOCYTOSIS 1+; HYPOCHROMASIA 1+
[2023-02-03 08:25] LABS: CENTRAL VEN BASE EXCESS -3.2
[2023-02-03] MEDS: ASPIRIN 81MG CHEW TABLET PO SCH (08:25)
[2023-02-03] MEDS: PANTOPRAZOLE 40MG VIAL IV SCH (08:26)
[2023-02-03 09:03] LABS: VENOUS BASE EXCESS -3.7 (-2.0-2.0); VENOUS HCO3 19.9 MMOL/L (23.0-27.0); VENOUS O2 SATURATION 96.8 % (60.0-80.0); VENOUS PARTIAL PRESSURE O2 95.5 mmHg (30.0-50.0); VENOUS PH 7.426 UNITS (7.330-7.430); VENOUS STANDARD HCO3 21.4 MMOL/L; VENOUS TOTAL CO2 20.9 MMOL/L (24.0-28.0)
[2023-02-03] MEDS: D5W/LR 1,000 ML IV SCH (15:59)
[2023-02-03] MEDS ORDERED: fentaNYL 100 MCG/2 ML INJECTION IV ONE (20:05)
[2023-02-03] MEDS ORDERED: ACETAMINOPHEN *IV* 1,000 MG in IV 1 EA IV ONE (20:08)
[2023-02-03] MEDS: ATORVASTATIN 20 MG TAB NG SCH (20:31)
[2023-02-04] VITALS (83 sets, daily range): BP systolic 125–211; BP diastolic 61–95; TEMP 97–100.4; O2SAT 90–99
[2023-02-04] MEDS: ceFAZolin SOD 2 GM in IV 1 EA IV SCH ×3 (00:53→17:29)
[2023-02-04] MEDS: ALBUTEROL SULFATE 2.5MG/0.5ML INH NEB SOLN NEB SCH ×4 (02:59→19:53)
[2023-02-04] MEDS ORDERED: cloNIDine HCL 0.2 MG/24 HR PATCH TOP SCH (03:00)
[2023-02-04] MEDS: fentaNYL 100 MCG/2 ML INJECTION IV PRN ×4 (03:02→21:20)
[2023-02-04] MEDS: hydrALAZINE 20MG/ML 1ML VIAL IV PRN (03:24)
[2023-02-04 04:33] LABS: HEMATOCRIT 30.7 % (42.0-52.0); HEMOGLOBIN 9.8 g/dl (13.5-17.5); MEAN CORPUSCULAR HEMOGLOBIN 29.8 pg (27.0-33.0); MEAN CORPUSCULAR HGB CONC 31.9 g/dl (32.0-36.5); MEAN CORPUSCULAR VOLUME 93.3 fl (80.0-96.0); PLATELET COUNT, AUTOMATED 321 10^3/uL (150-450); RED BLOOD COUNT 3.29 10^6/uL (4.30-6.10); WHITE BLOOD COUNT 13.1 10^3/uL (4.0-10.0)
[2023-02-04] MEDS: D5W/LR 1,000 ML IV SCH (04:54)
[2023-02-04] MEDS: LABETALOL 100MG/20ML VIAL IV SCH ×4 (05:00→23:13)
[2023-02-04 05:10] LABS: BLOOD UREA NITROGEN 14 MG/DL (9-23); CARBON DIOXIDE LEVEL 25 MMOL/L (20-31); CHLORIDE LEVEL 107 MMOL/L (98-107); CREATININE FOR GFR 1.14 MG/DL (0.70-1.30); GLOMERULAR FILTRATION RATE > 60.0 (>49); GLUCOSE, FASTING 115 MG/DL (74-106); MAGNESIUM LEVEL 1.8 MG/DL (1.8-2.4); PHOSPHORUS LEVEL 2.4 MG/DL (2.4-5.1); POTASSIUM SERUM 3.3 MMOL/L (3.5-5.1); SODIUM LEVEL 142 MMOL/L (136-145)
[2023-02-04] MEDS: KCL 10MEQ/100ML SWI (KRUN) 10 MEQ in IV 1 EA IV SCH ×6 (05:44→15:13)
[2023-02-04 06:03] LABS: EOSINOPHILS 5 % (0-3); HYPOCHROMASIA 1+; LYMPHOCYTES 8 % (16-44); MONOCYTES 6 % (0-5); MYELOCYTES 2 % (0-0); NEUTROPHILS 79 % (28-66); PLATELET ESTIMATE NORMAL (NORMAL)
[2023-02-04] MEDS ORDERED: hydrALAZINE 20MG/ML 1ML VIAL IV ONE (07:30)
[2023-02-04] MEDS: ASPIRIN 81MG CHEW TABLET PO SCH (07:42)
[2023-02-04] MEDS: niCARdipine IV 40 MG in IV 1 EA IV SCH ×5 (07:42→21:25)
[2023-02-04] MEDS: PANTOPRAZOLE 40MG VIAL IV SCH (08:05)
[2023-02-04] MEDS ORDERED: cloNIDine 0.2 MG TAB PO SCH (09:00)
[2023-02-04] MEDS ORDERED: VARIBAR PUDDING 40% w/v 230ML TUBE As Ordered ONE (09:49)
[2023-02-04] MEDS ORDERED: VARIBAR NECTAR 40% w/v 240ML SUSP BTL As Ordered ONE (09:50)
[2023-02-04] MEDS ORDERED: E-Z-PAQUE 96% w/w SUSP 176GM BTL As Ordered ONE (09:50)
[2023-02-04] MEDS ORDERED: BARIUM SULFATE 700 MG TABLET (E-Z-DISK) As Ordered ONE (09:50)
[2023-02-04] MEDS: ENOXAPARIN 40MG/0.4ML SYRINGE (J1650 PER 10MG) SC SCH (12:03)
[2023-02-04] MEDS ORDERED: LIDOCAINE 1% MDV 20ML VIAL As Ordered ONE (14:32)
[2023-02-04] MEDS: SODIUM CHLORIDE 0.9% INJ 10 ML SYR IV SCH (17:00)
[2023-02-04] MEDS: ATORVASTATIN 20 MG TAB NG SCH (20:48)
[2023-02-05] VITALS (87 sets, daily range): BP systolic 124–189; BP diastolic 60–132; TEMP 98.4–100.4; O2SAT 90–99
[2023-02-05] MEDS: ceFAZolin SOD 2 GM in IV 1 EA IV SCH (00:20)
[2023-02-05] MEDS: niCARdipine IV 40 MG in IV 1 EA IV SCH ×3 (00:20→19:48)
[2023-02-05] MEDS: fentaNYL 100 MCG/2 ML INJECTION IV PRN ×4 (01:31→23:52)
[2023-02-05] MEDS: ALBUTEROL SULFATE 2.5MG/0.5ML INH NEB SOLN NEB SCH ×4 (02:38→19:11)
[2023-02-05] MEDS: LABETALOL 100MG/20ML VIAL IV SCH ×4 (04:26→22:16)
[2023-02-05 04:53] LABS: HEMATOCRIT 28.6 % (42.0-52.0); MEAN CORPUSCULAR HEMOGLOBIN 29.3 pg (27.0-33.0); MEAN CORPUSCULAR HGB CONC 31.5 g/dl (32.0-36.5); MEAN CORPUSCULAR VOLUME 93.2 fl (80.0-96.0); PLATELET COUNT, AUTOMATED 344 10^3/uL (150-450); RED BLOOD COUNT 3.07 10^6/uL (4.30-6.10); WHITE BLOOD COUNT 13.1 10^3/uL (4.0-10.0)
[2023-02-05] MEDS: SODIUM CHLORIDE 0.9% INJ 10 ML SYR IV SCH ×2 (05:01→18:00)
[2023-02-05] MEDS: SODIUM CHLORIDE 0.9% INJ 10 ML SYR IV PRN (05:02)
[2023-02-05 05:11] LABS: BLOOD UREA NITROGEN 12 MG/DL (9-23); CALCIUM LEVEL 7.9 MG/DL (8.3-10.6); CARBON DIOXIDE LEVEL 22 MMOL/L (20-31); CHLORIDE LEVEL 111 MMOL/L (98-107); CREATININE FOR GFR 1.13 MG/DL (0.70-1.30); GLOMERULAR FILTRATION RATE > 60.0 (>49); GLUCOSE, FASTING 104 MG/DL (74-106); POTASSIUM SERUM 3.4 MMOL/L (3.5-5.1); SODIUM LEVEL 146 MMOL/L (136-145)
[2023-02-05] MEDS ORDERED: KCL 10MEQ/100ML SWI (KRUN) 10 MEQ in IV 1 EA IV ONE (06:00)
[2023-02-05 06:10] LABS: ATYPICAL LYMPH 2 % (0-5); EOSINOPHILS 1 % (0-3); LYMPHOCYTES 7 % (16-44); MONOCYTES 5 % (0-5); NEUTROPHILS 85 % (28-66)
[2023-02-05 06:11] LABS: HYPOCHROMASIA 1+; PLATELET ESTIMATE NORMAL (NORMAL)
[2023-02-05 06:13] LABS: POLYCHROMASIA 1+
[2023-02-05] MEDS: ASPIRIN 81MG CHEW TABLET PO SCH (09:00)
[2023-02-05] MEDS: ENOXAPARIN 40MG/0.4ML SYRINGE (J1650 PER 10MG) SC SCH (09:23)
[2023-02-05] MEDS: PANTOPRAZOLE 40MG VIAL IV SCH (09:23)
[2023-02-05] MEDS ORDERED: ENOXAPARIN 60MG/0.6ML SYRINGE (J1650 PER 10MG) SC ONE (11:00)
[2023-02-05] MEDS ORDERED: KCL 10MEQ/100ML SWI (KRUN) 10 MEQ in IV 1 EA IV SCH (11:00)
[2023-02-05] MEDS ORDERED: KETOROLAC 30 MG/ML 1ML VIAL IV ONE (11:15)
[2023-02-05] MEDS: D5W/LR 1,000 ML IV SCH ×3 (11:25→23:54)
[2023-02-05] MEDS ORDERED: KCL 10MEQ/100ML SWI (KRUN) IV ONE ×2 (12:00)
[2023-02-05] MEDS ORDERED: KCL 20MEQ IN 100ML SWI (KRUN) 100 ML IV ONE (13:00)
[2023-02-05] MEDS: ACETAMINOPHEN *IV* 1,000 MG in IV 1 EA IV SCH ×2 (13:53→20:38)
[2023-02-05] MEDS: ENOXAPARIN 60MG/0.6ML SYRINGE (J1650 PER 10MG) SC SCH (20:37)
[2023-02-05] MEDS: ATORVASTATIN 20 MG TAB NG SCH (20:38)
[2023-02-05] MEDS ORDERED: ENOXAPARIN 100MG/1ML SYRINGE (J1650 PER 10MG) SC SCH (21:00)
[2023-02-06] VITALS (76 sets, daily range): BP systolic 133–181; BP diastolic 59–90; TEMP 97.7–99.8; O2SAT 86–100
[2023-02-06] MEDS: niCARdipine IV 40 MG in IV 1 EA IV SCH ×4 (00:39→16:50)
[2023-02-06] MEDS: ALBUTEROL SULFATE 2.5MG/0.5ML INH NEB SOLN NEB SCH ×4 (01:15→20:17)
[2023-02-06 04:25] LABS: VENOUS BASE EXCESS -0.8 (-2.0-2.0); VENOUS HCO3 21.9 MMOL/L (23.0-27.0); VENOUS O2 SATURATION 97.9 % (60.0-80.0); VENOUS PARTIAL PRESSURE CO2 29.5 mmHg (38.0-50.0); VENOUS PARTIAL PRESSURE O2 107.4 mmHg (30.0-50.0); VENOUS PH 7.488 UNITS (7.330-7.430); VENOUS STANDARD HCO3 23.8 MMOL/L; VENOUS TOTAL CO2 22.8 MMOL/L (24.0-28.0)
[2023-02-06 04:37] LABS: HEMATOCRIT 28.9 % (42.0-52.0); HEMOGLOBIN 9.1 g/dl (13.5-17.5); MEAN CORPUSCULAR HGB CONC 31.5 g/dl (32.0-36.5); PLATELET COUNT, AUTOMATED 385 10^3/uL (150-450); RED BLOOD COUNT 3.14 10^6/uL (4.30-6.10); WHITE BLOOD COUNT 14.2 10^3/uL (4.0-10.0)
[2023-02-06 04:54] LABS: BLOOD UREA NITROGEN 13 MG/DL (9-23); CARBON DIOXIDE LEVEL 23 MMOL/L (20-31); CHLORIDE LEVEL 111 MMOL/L (98-107); CREATININE FOR GFR 1.05 MG/DL (0.70-1.30); GLOMERULAR FILTRATION RATE > 60.0 (>49); GLUCOSE, FASTING 117 MG/DL (74-106); POTASSIUM SERUM 3.4 MMOL/L (3.5-5.1); SODIUM LEVEL 142 MMOL/L (136-145)
[2023-02-06] MEDS: SODIUM CHLORIDE 0.9% INJ 10 ML SYR IV SCH ×2 (05:20→17:13)
[2023-02-06 05:40] LABS: EOSINOPHILS 3 % (0-3); LYMPHOCYTES 6 % (16-44); MONOCYTES 5 % (0-5); NEUTROPHILS 84 % (28-66); PLATELET ESTIMATE NORMAL (NORMAL)
[2023-02-06 05:41] LABS: ANISOCYTOSIS 1+
[2023-02-06 05:42] LABS: HYPOCHROMASIA 1+
[2023-02-06] MEDS: LABETALOL 100MG/20ML VIAL IV SCH ×4 (05:46→22:38)
[2023-02-06] MEDS ORDERED: KCL 20MEQ IN 100ML SWI (KRUN) 20 MEQ in IV 1 EA IV ONE ×2 (06:00)
[2023-02-06] MEDS: ASPIRIN 81MG CHEW TABLET PO SCH (08:40)
[2023-02-06] MEDS: ENOXAPARIN 60MG/0.6ML SYRINGE (J1650 PER 10MG) SC SCH ×2 (09:03→20:05)
[2023-02-06] MEDS: PANTOPRAZOLE 40MG VIAL IV SCH (09:03)
[2023-02-06] MEDS: hydrALAZINE 20MG/ML 1ML VIAL IV PRN (16:07)
[2023-02-06] MEDS: fentaNYL 100 MCG/2 ML INJECTION IV PRN (17:57)
[2023-02-06] MEDS ORDERED: AMINO AC/ELECTROLYTE/DEX/CALC 2,566 ML IV SCH (18:00)
[2023-02-06] MEDS: ATORVASTATIN 20 MG TAB NG SCH (19:31)
[2023-02-07] VITALS (59 sets, daily range): BP systolic 125–178; BP diastolic 55–116; TEMP 97–99.6; O2SAT 94–97
[2023-02-07] MEDS: niCARdipine IV 40 MG in IV 1 EA IV SCH ×6 (00:11→21:08)
[2023-02-07] MEDS: ALBUTEROL SULFATE 2.5MG/0.5ML INH NEB SOLN NEB SCH ×4 (02:04→20:22)
[2023-02-07] MEDS: LABETALOL 100MG/20ML VIAL IV SCH ×4 (04:35→22:48)
[2023-02-07] MEDS: fentaNYL 100 MCG/2 ML INJECTION IV PRN ×2 (04:47→20:21)
[2023-02-07 04:58] LABS: BASO # 0.1 10^3/uL (0.0-0.2); BASO % 0.4 % (0.0-1.0); EOS # 0.5 10^3/uL (0.0-0.5); EOS % 3.7 % (0.0-3.0); HEMATOCRIT 29.7 % (42.0-52.0); HEMOGLOBIN 9.1 g/dl (13.5-17.5); LYMPH # 1.4 10^3/uL (1.5-5.0); LYMPH % 10.1 % (24.0-44.0); MEAN CORPUSCULAR HEMOGLOBIN 28.6 pg (27.0-33.0); MEAN CORPUSCULAR HGB CONC 30.6 g/dl (32.0-36.5); MEAN CORPUSCULAR VOLUME 93.4 fl (80.0-96.0); MONO # 0.9 10^3/uL (0.0-0.8); MONO % 6.7 % (2.0-8.0); NEUTROPHILS # 10.4 10^3/uL (1.5-8.5); NEUTROPHILS % 77.5 % (36.0-66.0); PLATELET COUNT, AUTOMATED 403 10^3/uL (150-450); RED BLOOD COUNT 3.18 10^6/uL (4.30-6.10); WHITE BLOOD COUNT 13.4 10^3/uL (4.0-10.0)
[2023-02-07 05:18] LABS: BLOOD UREA NITROGEN 13 MG/DL (9-23); CALCIUM LEVEL 7.9 MG/DL (8.3-10.6); CARBON DIOXIDE LEVEL 22 MMOL/L (20-31); CHLORIDE LEVEL 111 MMOL/L (98-107); CREATININE FOR GFR 1.05 MG/DL (0.70-1.30); GLOMERULAR FILTRATION RATE > 60.0 (>49); GLUCOSE, FASTING 118 MG/DL (74-106); POTASSIUM SERUM 3.8 MMOL/L (3.5-5.1); SODIUM LEVEL 143 MMOL/L (136-145)
[2023-02-07 05:36] LABS: MAGNESIUM LEVEL 1.7 MG/DL (1.8-2.4)
[2023-02-07] MEDS: SODIUM CHLORIDE 0.9% INJ 10 ML SYR IV SCH ×2 (06:00→18:00)
[2023-02-07] MEDS: PANTOPRAZOLE 40MG VIAL IV SCH (08:13)
[2023-02-07] MEDS: ENOXAPARIN 60MG/0.6ML SYRINGE (J1650 PER 10MG) SC SCH ×2 (08:14→20:21)
[2023-02-07] MEDS: ASPIRIN 81MG CHEW TABLET PO SCH ×2 (09:00→15:44)
[2023-02-07] MEDS: hydrALAZINE 20MG/ML 1ML VIAL IV PRN (09:53)
[2023-02-07] MEDS ORDERED: [UNRECOGNIZED DRUG - OTHER] IV SCH ×4 (18:00)
[2023-02-07] MEDS ORDERED: MANGANESE IV SCH ×4 (18:00)
[2023-02-07] MEDS: INSULIN LISPRO (NovoLOG) PER UNIT SC SCH ×2 (18:00→23:59)
[2023-02-07] MEDS ORDERED: COPPER IV SCH ×4 (18:00)
[2023-02-07] MEDS ORDERED: ZINC IV SCH ×4 (18:00)
[2023-02-07] MEDS ORDERED: SELENIUM IV SCH ×4 (18:00)
[2023-02-07] MEDS ORDERED: MULTIVITAMIN ADULT IV SCH ×4 (18:00)
[2023-02-07] MEDS: ATORVASTATIN 20 MG TAB NG SCH (20:20)
[2023-02-08] VITALS (58 sets, daily range): BP systolic 126–173; BP diastolic 55–91; TEMP 97.1–98.9; O2SAT 94–96
[2023-02-08] MEDS: niCARdipine IV 40 MG in IV 1 EA IV SCH ×3 (01:44→22:24)
[2023-02-08] MEDS: fentaNYL 100 MCG/2 ML INJECTION IV PRN ×2 (01:56→21:17)
[2023-02-08] MEDS: ALBUTEROL SULFATE 2.5MG/0.5ML INH NEB SOLN NEB SCH ×4 (02:05→19:00)
[2023-02-08] MEDS: LABETALOL 100MG/20ML VIAL IV SCH ×4 (04:51→22:20)
[2023-02-08 05:19] LABS: BASO # 0.1 10^3/uL (0.0-0.2); BASO % 0.4 % (0.0-1.0); EOS # 0.7 10^3/uL (0.0-0.5); EOS % 6.3 % (0.0-3.0); HEMATOCRIT 28.5 % (42.0-52.0); HEMOGLOBIN 8.9 g/dl (13.5-17.5); LYMPH # 1.4 10^3/uL (1.5-5.0); LYMPH % 11.5 % (24.0-44.0); MEAN CORPUSCULAR HEMOGLOBIN 29.1 pg (27.0-33.0); MEAN CORPUSCULAR HGB CONC 31.2 g/dl (32.0-36.5); MEAN CORPUSCULAR VOLUME 93.1 fl (80.0-96.0); MONO # 0.8 10^3/uL (0.0-0.8); NEUTROPHILS # 8.6 10^3/uL (1.5-8.5); NEUTROPHILS % 72.9 % (36.0-66.0); PLATELET COUNT, AUTOMATED 399 10^3/uL (150-450); RED BLOOD COUNT 3.06 10^6/uL (4.30-6.10); WHITE BLOOD COUNT 11.8 10^3/uL (4.0-10.0)
[2023-02-08 05:33] LABS: BLOOD UREA NITROGEN 16 MG/DL (9-23); CALCIUM LEVEL 7.9 MG/DL (8.3-10.6); CARBON DIOXIDE LEVEL 20 MMOL/L (20-31); CHLORIDE LEVEL 111 MMOL/L (98-107); GLOMERULAR FILTRATION RATE > 60.0 (>49); GLUCOSE, FASTING 112 MG/DL (74-106); POTASSIUM SERUM 3.9 MMOL/L (3.5-5.1); SODIUM LEVEL 141 MMOL/L (136-145)
[2023-02-08 05:34] LABS: PHOSPHORUS LEVEL 4.3 MG/DL (2.4-5.1)
[2023-02-08] MEDS: INSULIN LISPRO (NovoLOG) PER UNIT SC SCH (06:00)
[2023-02-08] MEDS: SODIUM CHLORIDE 0.9% INJ 10 ML SYR IV SCH ×2 (06:00→18:00)
[2023-02-08] MEDS: PANTOPRAZOLE 40MG VIAL IV SCH (10:02)
[2023-02-08] MEDS: ASPIRIN 81MG CHEW TABLET PO SCH (10:02)
[2023-02-08] MEDS: ENOXAPARIN 60MG/0.6ML SYRINGE (J1650 PER 10MG) SC SCH ×2 (10:02→20:15)
[2023-02-08] MEDS ORDERED: ACETAMINOPHEN 325 MG TAB As Ordered ONE (10:08)
[2023-02-08] MEDS ORDERED: ACETAMINOPHEN 325 MG TAB PO ONE (10:15)
[2023-02-08] MEDS ORDERED: SENNA 8.6 MG TAB (SENOKOT) PO PRN (11:25)
[2023-02-08] MEDS: CARVedilol 12.5 MG TAB PO SCH ×2 (12:09→20:14)
[2023-02-08] MEDS: CETIRIZINE (ZyrTEC) 10 MG TAB PO SCH (12:09)
[2023-02-08] MEDS: DULoxetine 30MG CAPSULE (CYMBALTA) PO SCH ×2 (12:09→20:14)
[2023-02-08] MEDS: DOCUSATE SODIUM 100MG CAPSULE PO SCH (12:10)
[2023-02-08] MEDS: hydrALAZINE 20MG/ML 1ML VIAL IV PRN (15:49)
[2023-02-08] MEDS: GABAPENTIN 400MG CAP PO SCH ×2 (17:44→20:14)
[2023-02-08] MEDS: AMINO AC/ELECTROLYTE/DEX/CALC 2,566 ML IV SCH (18:13)
[2023-02-08] MEDS: ATORVASTATIN 20 MG TAB PO SCH (20:13)
[2023-02-08] MEDS: FINASTERIDE 5MG TAB PO SCH (20:14)
[2023-02-08] MEDS ORDERED: GABAPENTIN 100 MG CAP PO PRN (21:00)
[2023-02-09] VITALS (76 sets, daily range): BP systolic 121–186; BP diastolic 56–86; TEMP 97.8–99.4; O2SAT 81–100
[2023-02-09] MEDS: ALBUTEROL SULFATE 2.5MG/0.5ML INH NEB SOLN NEB SCH ×2 (01:13→07:20)
[2023-02-09] MEDS: hydrALAZINE 20MG/ML 1ML VIAL IV PRN (02:48)
[2023-02-09] MEDS: niCARdipine IV 40 MG in IV 1 EA IV SCH ×3 (03:59→23:49)
[2023-02-09] MEDS: LABETALOL 100MG/20ML VIAL IV SCH ×4 (04:37→23:00)
[2023-02-09 05:01] LABS: BASO # 0.1 10^3/uL (0.0-0.2); BASO % 0.4 % (0.0-1.0); EOS # 0.8 10^3/uL (0.0-0.5); EOS % 5.9 % (0.0-3.0); HEMATOCRIT 28.9 % (42.0-52.0); LYMPH # 1.1 10^3/uL (1.5-5.0); LYMPH % 8.6 % (24.0-44.0); MEAN CORPUSCULAR HEMOGLOBIN 28.8 pg (27.0-33.0); MEAN CORPUSCULAR HGB CONC 31.1 g/dl (32.0-36.5); MEAN CORPUSCULAR VOLUME 92.3 fl (80.0-96.0); MONO # 0.9 10^3/uL (0.0-0.8); MONO % 6.8 % (2.0-8.0); NEUTROPHILS # 10.1 10^3/uL (1.5-8.5); NEUTROPHILS % 76.8 % (36.0-66.0); PLATELET COUNT, AUTOMATED 399 10^3/uL (150-450); RED BLOOD COUNT 3.13 10^6/uL (4.30-6.10); WHITE BLOOD COUNT 13.1 10^3/uL (4.0-10.0)
[2023-02-09 05:23] LABS: ALBUMIN 1.9 G/DL (3.2-5.2); ALKALINE PHOSPHATASE 73 U/L (46-116); ALT/SGPT 23 U/L (7.0-40); AST/SGOT 50 U/L (<34); BILIRUBIN,TOTAL 0.2 MG/DL (0.3-1.2); BLOOD UREA NITROGEN 19 MG/DL (9-23); CALCIUM LEVEL 7.9 MG/DL (8.3-10.6); CARBON DIOXIDE LEVEL 18 MMOL/L (20-31); CHLORIDE LEVEL 111 MMOL/L (98-107); CREATININE FOR GFR 1.06 MG/DL (0.70-1.30); GLOMERULAR FILTRATION RATE > 60.0 (>49); GLUCOSE, FASTING 119 MG/DL (74-106); MAGNESIUM LEVEL 2.2 MG/DL (1.8-2.4); POTASSIUM SERUM 4.2 MMOL/L (3.5-5.1); SODIUM LEVEL 139 MMOL/L (136-145)
[2023-02-09] MEDS: SODIUM CHLORIDE 0.9% INJ 10 ML SYR IV SCH ×2 (05:53→17:12)
[2023-02-09] MEDS: DOCUSATE SODIUM 100MG CAPSULE PO SCH (09:00)
[2023-02-09] MEDS: DULoxetine 30MG CAPSULE (CYMBALTA) PO SCH ×2 (09:35→20:47)
[2023-02-09] MEDS: GABAPENTIN 400MG CAP PO SCH ×3 (09:36→20:47)
[2023-02-09] MEDS: PANTOPRAZOLE 40MG VIAL IV SCH (09:36)
[2023-02-09] MEDS: CETIRIZINE (ZyrTEC) 10 MG TAB PO SCH (09:36)
[2023-02-09] MEDS: ASPIRIN 81MG CHEW TABLET PO SCH (09:36)
[2023-02-09] MEDS: CARVedilol 12.5 MG TAB PO SCH ×2 (09:36→20:48)
[2023-02-09] MEDS: AMINO AC/ELECTROLYTE/DEX/CALC 2,566 ML IV SCH ×2 (10:24→20:46)
[2023-02-09] MEDS ORDERED: ALBUTEROL SULFATE 2.5MG/0.5ML INH NEB SOLN NEB PRN (11:00)
[2023-02-09] MEDS ORDERED: propofoL 200 MG/20 ML VIAL As Ordered ONE ×2 (13:43→13:44)
[2023-02-09] MEDS ORDERED: LIDOCAINE 2% 100MG/5ML SDV (FOR ANES.) As Ordered ONE (13:46)
[2023-02-09] MEDS ORDERED: fentaNYL 100 MCG/2 ML INJECTION As Ordered ONE (13:48)
[2023-02-09] MEDS: **hydrALAZINE** 50 MG TAB PO SCH ×2 (16:15→20:48)
[2023-02-09] MEDS: FINASTERIDE 5MG TAB PO SCH (20:47)
[2023-02-09] MEDS: ATORVASTATIN 20 MG TAB PO SCH (20:48)
[2023-02-09] MEDS: PERCOCET 5MG/325MG TAB PO PRN (20:50)
[2023-02-09] MEDS: ENOXAPARIN 60MG/0.6ML SYRINGE (J1650 PER 10MG) SC SCH (22:20)
[2023-02-10] VITALS (78 sets, daily range): BP systolic 125–190; BP diastolic 60–93; TEMP 97.5–100.5; O2SAT 93–98
[2023-02-10] MEDS: SODIUM CHLORIDE 0.9% INJ 10 ML SYR IV SCH ×2 (00:05→17:41)
[2023-02-10] MEDS: LABETALOL 100MG/20ML VIAL IV SCH ×2 (00:39→05:06)
[2023-02-10] MEDS: niCARdipine IV 40 MG in IV 1 EA IV SCH (04:43)
[2023-02-10 05:03] LABS: BASO % 0.3 % (0.0-1.0); EOS # 0.4 10^3/uL (0.0-0.5); EOS % 3.6 % (0.0-3.0); HEMATOCRIT 27.4 % (42.0-52.0); HEMOGLOBIN 8.6 g/dl (13.5-17.5); LYMPH # 1.1 10^3/uL (1.5-5.0); LYMPH % 9.4 % (24.0-44.0); MEAN CORPUSCULAR HEMOGLOBIN 29.3 pg (27.0-33.0); MEAN CORPUSCULAR HGB CONC 31.4 g/dl (32.0-36.5); MEAN CORPUSCULAR VOLUME 93.2 fl (80.0-96.0); MONO # 0.8 10^3/uL (0.0-0.8); MONO % 7.1 % (2.0-8.0); NEUTROPHILS # 9.3 10^3/uL (1.5-8.5); NEUTROPHILS % 78.2 % (36.0-66.0); PLATELET COUNT, AUTOMATED 378 10^3/uL (150-450); RED BLOOD COUNT 2.94 10^6/uL (4.30-6.10); WHITE BLOOD COUNT 11.9 10^3/uL (4.0-10.0)
[2023-02-10 05:29] LABS: BLOOD UREA NITROGEN 21 MG/DL (9-23); CALCIUM LEVEL 7.9 MG/DL (8.3-10.6); CARBON DIOXIDE LEVEL 21 MMOL/L (20-31); CHLORIDE LEVEL 109 MMOL/L (98-107); CREATININE FOR GFR 1.08 MG/DL (0.70-1.30); GLOMERULAR FILTRATION RATE > 60.0 (>49); GLUCOSE, FASTING 100 MG/DL (74-106); PHOSPHORUS LEVEL 4.9 MG/DL (2.4-5.1); POTASSIUM SERUM 4.4 MMOL/L (3.5-5.1); SODIUM LEVEL 139 MMOL/L (136-145)
[2023-02-10] MEDS: fentaNYL 100 MCG/2 ML INJECTION IV PRN ×4 (05:36→23:59)
[2023-02-10] MEDS ORDERED: **hydrALAZINE HCL** 25 MG TAB PO SCH (08:45)
[2023-02-10] MEDS ORDERED: **hydrALAZINE** 10 MG TAB PO PRN (08:55)
[2023-02-10] MEDS: DOCUSATE SODIUM 100MG CAPSULE PO SCH (08:59)
[2023-02-10] MEDS: PANTOPRAZOLE 40MG VIAL IV SCH (09:50)
[2023-02-10] MEDS: GABAPENTIN 400MG CAP PO SCH ×3 (09:51→20:16)
[2023-02-10] MEDS: DULoxetine 30MG CAPSULE (CYMBALTA) PO SCH ×2 (09:51→20:15)
[2023-02-10] MEDS: ASPIRIN 81MG CHEW TABLET PO SCH (09:51)
[2023-02-10] MEDS: **hydrALAZINE** 50 MG TAB PO SCH ×4 (09:51→20:15)
[2023-02-10] MEDS: CETIRIZINE (ZyrTEC) 10 MG TAB PO SCH (09:52)
[2023-02-10] MEDS: ENOXAPARIN 60MG/0.6ML SYRINGE (J1650 PER 10MG) SC SCH ×2 (09:52→20:14)
[2023-02-10] MEDS: CARVedilol 12.5 MG TAB PO SCH ×2 (09:52→20:15)
[2023-02-10] MEDS: AMINO AC/ELECTROLYTE/DEX/CALC 2,566 ML IV SCH (11:46)
[2023-02-10] MEDS ORDERED: FUROSEMIDE 20MG/2ML VIAL IV ONE (17:55)
[2023-02-10] MEDS ORDERED: IPRATROPIUM 0.5MG/ALBUTEROL 2.5MG INH SOL UD 3ML (DUONEB) NEB ONE (17:55)
[2023-02-10] MEDS: ATORVASTATIN 20 MG TAB PO SCH (20:14)
[2023-02-10] MEDS: FINASTERIDE 5MG TAB PO SCH (20:15)
[2023-02-11] VITALS (19 sets, daily range): BP systolic 98–176; BP diastolic 55–83; TEMP 98.3–100.5; O2SAT 95–98
[2023-02-11] MEDS: fentaNYL 100 MCG/2 ML INJECTION IV PRN ×2 (03:25→05:57)
[2023-02-11] MEDS: SODIUM CHLORIDE 0.9% INJ 10 ML SYR IV SCH ×2 (05:49→17:23)
[2023-02-11 06:10] LABS: BASO % 0.2 % (0.0-1.0); EOS # 0.4 10^3/uL (0.0-0.5); EOS % 2.7 % (0.0-3.0); HEMATOCRIT 28.5 % (42.0-52.0); HEMOGLOBIN 8.9 g/dl (13.5-17.5); LYMPH # 1.2 10^3/uL (1.5-5.0); MEAN CORPUSCULAR HEMOGLOBIN 28.9 pg (27.0-33.0); MEAN CORPUSCULAR HGB CONC 31.2 g/dl (32.0-36.5); MEAN CORPUSCULAR VOLUME 92.5 fl (80.0-96.0); MONO # 1.2 10^3/uL (0.0-0.8); MONO % 8.5 % (2.0-8.0); NEUTROPHILS # 11.4 10^3/uL (1.5-8.5); NEUTROPHILS % 79.6 % (36.0-66.0); PLATELET COUNT, AUTOMATED 388 10^3/uL (150-450); RED BLOOD COUNT 3.08 10^6/uL (4.30-6.10); WHITE BLOOD COUNT 14.4 10^3/uL (4.0-10.0)
[2023-02-11 06:30] LABS: BLOOD UREA NITROGEN 23 MG/DL (9-23); CARBON DIOXIDE LEVEL 22 MMOL/L (20-31); CHLORIDE LEVEL 106 MMOL/L (98-107); CREATININE FOR GFR 1.19 MG/DL (0.70-1.30); GLOMERULAR FILTRATION RATE > 60.0 (>49); GLUCOSE, FASTING 100 MG/DL (74-106); MAGNESIUM LEVEL 1.8 MG/DL (1.8-2.4); PHOSPHORUS LEVEL 5.2 MG/DL (2.4-5.1); POTASSIUM SERUM 4.4 MMOL/L (3.5-5.1); SODIUM LEVEL 138 MMOL/L (136-145)
[2023-02-11] MEDS: CETIRIZINE (ZyrTEC) 10 MG TAB PO SCH (08:15)
[2023-02-11] MEDS: ASPIRIN 81MG CHEW TABLET PO SCH (08:15)
[2023-02-11] MEDS: GABAPENTIN 400MG CAP PO SCH (08:15)
[2023-02-11] MEDS: DOCUSATE SODIUM 100MG CAPSULE PO SCH (08:15)
[2023-02-11] MEDS: DULoxetine 30MG CAPSULE (CYMBALTA) PO SCH ×2 (08:15→20:39)
[2023-02-11] MEDS: **hydrALAZINE** 50 MG TAB PO SCH (08:15)
[2023-02-11] MEDS: CARVedilol 12.5 MG TAB PO SCH (08:15)
[2023-02-11] MEDS: PANTOPRAZOLE 40MG VIAL IV SCH (08:17)
[2023-02-11] MEDS: PERCOCET 5MG/325MG TAB PO PRN ×2 (08:17→17:24)
[2023-02-11] MEDS: ENOXAPARIN 60MG/0.6ML SYRINGE (J1650 PER 10MG) SC SCH ×2 (08:18→20:41)
[2023-02-11] MEDS: **hydrALAZINE** 50 MG TAB GT SCH ×3 (14:04→20:38)
[2023-02-11] MEDS: **hydrALAZINE HCL** 25 MG TAB GT SCH ×3 (14:05→20:39)
[2023-02-11] MEDS: SENNA 8.6 MG TAB (SENOKOT) GT SCH ×2 (14:05→20:37)
[2023-02-11] MEDS ORDERED: PERCOCET 5MG/325MG TAB PO PRN (16:00)
[2023-02-11] MEDS: GABAPENTIN 400MG CAP GT SCH ×2 (17:20→20:37)
[2023-02-11] MEDS: DOCUSATE SOD LIQ 100MG/10ML UDC GT SCH (20:37)
[2023-02-11] MEDS: CARVedilol 12.5 MG TAB GT SCH (20:38)
[2023-02-11] MEDS: ATORVASTATIN 20 MG TAB GT SCH (20:39)
[2023-02-11] MEDS: FINASTERIDE 5MG TAB PO SCH (20:40)
[2023-02-12] VITALS (14 sets, daily range): BP systolic 134–191; BP diastolic 64–88; TEMP 98–98.9; O2SAT 93–96
[2023-02-12] MEDS: PERCOCET 5MG/325MG TAB PO PRN ×3 (01:46→23:27)
[2023-02-12] MEDS: fentaNYL 100 MCG/2 ML INJECTION IV PRN ×4 (03:06→21:43)
[2023-02-12 04:27] LABS: BASO % 0.3 % (0.0-1.0); EOS # 0.3 10^3/uL (0.0-0.5); EOS % 2.3 % (0.0-3.0); HEMATOCRIT 27.5 % (42.0-52.0); HEMOGLOBIN 8.6 g/dl (13.5-17.5); LYMPH # 1.2 10^3/uL (1.5-5.0); LYMPH % 8.6 % (24.0-44.0); MEAN CORPUSCULAR HEMOGLOBIN 28.9 pg (27.0-33.0); MEAN CORPUSCULAR HGB CONC 31.3 g/dl (32.0-36.5); MEAN CORPUSCULAR VOLUME 92.3 fl (80.0-96.0); MONO # 1.1 10^3/uL (0.0-0.8); MONO % 7.9 % (2.0-8.0); NEUTROPHILS # 10.9 10^3/uL (1.5-8.5); NEUTROPHILS % 79.8 % (36.0-66.0); PLATELET COUNT, AUTOMATED 394 10^3/uL (150-450); RED BLOOD COUNT 2.98 10^6/uL (4.30-6.10); WHITE BLOOD COUNT 13.7 10^3/uL (4.0-10.0)
[2023-02-12 04:45] LABS: BLOOD UREA NITROGEN 26 MG/DL (9-23); CALCIUM LEVEL 7.7 MG/DL (8.3-10.6); CARBON DIOXIDE LEVEL 24 MMOL/L (20-31); CHLORIDE LEVEL 103 MMOL/L (98-107); CREATININE FOR GFR 1.22 MG/DL (0.70-1.30); GLOMERULAR FILTRATION RATE > 60.0 (>49); GLUCOSE, FASTING 120 MG/DL (74-106); MAGNESIUM LEVEL 1.8 MG/DL (1.8-2.4); POTASSIUM SERUM 4.4 MMOL/L (3.5-5.1); SODIUM LEVEL 135 MMOL/L (136-145)
[2023-02-12] MEDS: SODIUM CHLORIDE 0.9% INJ 10 ML SYR IV SCH ×2 (05:04→17:37)
[2023-02-12] MEDS: **hydrALAZINE HCL** 25 MG TAB GT SCH ×4 (09:44→20:16)
[2023-02-12] MEDS: DOCUSATE SOD LIQ 100MG/10ML UDC GT SCH ×2 (09:45→20:14)
[2023-02-12] MEDS: **hydrALAZINE** 50 MG TAB GT SCH ×4 (09:45→20:16)
[2023-02-12] MEDS: CARVedilol 12.5 MG TAB GT SCH ×2 (09:46→20:15)
[2023-02-12] MEDS: GABAPENTIN 400MG CAP GT SCH ×3 (09:46→20:14)
[2023-02-12] MEDS: DULoxetine 30MG CAPSULE (CYMBALTA) PO SCH ×2 (09:46→20:15)
[2023-02-12] MEDS: SENNA 8.6 MG TAB (SENOKOT) GT SCH ×2 (09:47→20:15)
[2023-02-12] MEDS: ASPIRIN 81MG CHEW TABLET PO SCH (09:47)
[2023-02-12] MEDS: ENOXAPARIN 60MG/0.6ML SYRINGE (J1650 PER 10MG) SC SCH ×2 (09:48→20:16)
[2023-02-12] MEDS: PANTOPRAZOLE 40MG VIAL IV SCH (09:48)
[2023-02-12] MEDS: CETIRIZINE (ZyrTEC) 10 MG TAB PO SCH (09:48)
[2023-02-12] MEDS: MIRALAX *UNIT DOSE* 17GM PACKET PO PRN (09:48)
[2023-02-12] MEDS: ATORVASTATIN 20 MG TAB GT SCH (20:14)
[2023-02-12] MEDS: ACETAMINOPHEN TAB 650MG DOSE (2X325MG) PO PRN (20:15)
[2023-02-12] MEDS: FINASTERIDE 5MG TAB PO SCH (20:17)
[2023-02-13] VITALS (9 sets, daily range): BP systolic 140–202; BP diastolic 69–91; TEMP 97.2–98.6; O2SAT 91–98
[2023-02-13] MEDS: fentaNYL 100 MCG/2 ML INJECTION IV PRN ×3 (01:03→13:58)
[2023-02-13] MEDS: SODIUM CHLORIDE 0.9% INJ 10 ML SYR IV SCH ×2 (04:05→17:10)
[2023-02-13 04:16] LABS: BASO % 0.2 % (0.0-1.0); EOS # 0.2 10^3/uL (0.0-0.5); EOS % 1.6 % (0.0-3.0); HEMOGLOBIN 8.7 g/dl (13.5-17.5); LYMPH # 1.2 10^3/uL (1.5-5.0); LYMPH % 8.4 % (24.0-44.0); MEAN CORPUSCULAR HEMOGLOBIN 28.5 pg (27.0-33.0); MEAN CORPUSCULAR HGB CONC 31.1 g/dl (32.0-36.5); MEAN CORPUSCULAR VOLUME 91.8 fl (80.0-96.0); MONO # 1.3 10^3/uL (0.0-0.8); MONO % 9.4 % (2.0-8.0); NEUTROPHILS # 11.2 10^3/uL (1.5-8.5); NEUTROPHILS % 79.7 % (36.0-66.0); PLATELET COUNT, AUTOMATED 407 10^3/uL (150-450); RED BLOOD COUNT 3.05 10^6/uL (4.30-6.10)
[2023-02-13 04:43] LABS: BLOOD UREA NITROGEN 23 MG/DL (9-23); CALCIUM LEVEL 7.9 MG/DL (8.3-10.6); CARBON DIOXIDE LEVEL 26 MMOL/L (20-31); CHLORIDE LEVEL 104 MMOL/L (98-107); CREATININE FOR GFR 1.13 MG/DL (0.70-1.30); GLOMERULAR FILTRATION RATE > 60.0 (>49); GLUCOSE, FASTING 126 MG/DL (74-106); MAGNESIUM LEVEL 1.7 MG/DL (1.8-2.4); POTASSIUM SERUM 4.3 MMOL/L (3.5-5.1); SODIUM LEVEL 137 MMOL/L (136-145)
[2023-02-13] MEDS ORDERED: cloNIDine 0.1MG TABLET PO ONE (04:45)
[2023-02-13] MEDS ORDERED: MAG SULF 1GM/100ML (MAG RUN) 1 GM in IV 1 EA IV ONE (05:15)
[2023-02-13] MEDS: SENNA 8.6 MG TAB (SENOKOT) GT SCH ×2 (08:11→21:26)
[2023-02-13] MEDS: MIRALAX *UNIT DOSE* 17GM PACKET PO PRN (08:11)
[2023-02-13] MEDS: ENOXAPARIN 60MG/0.6ML SYRINGE (J1650 PER 10MG) SC SCH ×2 (08:11→21:28)
[2023-02-13] MEDS: PANTOPRAZOLE 40MG VIAL IV SCH (08:11)
[2023-02-13] MEDS: GABAPENTIN 400MG CAP GT SCH ×3 (08:14→21:25)
[2023-02-13] MEDS: ASPIRIN 81MG CHEW TABLET PO SCH (08:14)
[2023-02-13] MEDS: DULoxetine 30MG CAPSULE (CYMBALTA) PO SCH ×2 (08:14→21:26)
[2023-02-13] MEDS: **hydrALAZINE HCL** 25 MG TAB GT SCH ×4 (08:15→21:26)
[2023-02-13] MEDS: DOCUSATE SOD LIQ 100MG/10ML UDC GT SCH ×2 (08:15→21:27)
[2023-02-13] MEDS: CARVedilol 12.5 MG TAB GT SCH ×2 (08:15→21:25)
[2023-02-13] MEDS: **hydrALAZINE** 50 MG TAB GT SCH ×4 (08:15→21:27)
[2023-02-13] MEDS: CETIRIZINE (ZyrTEC) 10 MG TAB PO SCH (08:16)
[2023-02-13] MEDS ORDERED: BISACODYL 10MG SUPP PR SCH (09:00)
[2023-02-13] MEDS: PERCOCET 5MG/325MG TAB PO PRN ×2 (09:39→17:11)
[2023-02-13] MEDS: NYSTATIN 500,000U/5ML SUSP UDC SS SCH ×3 (12:45→21:27)
[2023-02-13] MEDS: LACTULOSE 20GM/30ML SYRUP UDC PO SCH ×2 (12:45→17:13)
[2023-02-13] MEDS ORDERED: PERCOCET 5MG/325MG TAB PO PRN ×2 (19:00→19:15)
[2023-02-13] MEDS ORDERED: BISACODYL 5MG TAB PO ONE (19:00)
[2023-02-13] MEDS ORDERED: oxyCODONE 5MG TAB PO PRN (19:30)
[2023-02-13] MEDS ORDERED: fentaNYL 25 MCG/HR PATCH TOP SCH (21:00)
[2023-02-13] MEDS ORDERED: cloNIDine 0.05MG 1/2 TABLET PO SCH (21:00)
[2023-02-13] MEDS ORDERED: FENTANYL REMOVAL DOCUMENTATION MISC XX SCH (21:00)
[2023-02-13] MEDS: ATORVASTATIN 20 MG TAB GT SCH (21:25)
[2023-02-13] MEDS: FINASTERIDE 5MG TAB PO SCH (21:26)
[2023-02-13] MEDS: cloNIDine 0.1MG TABLET PO SCH (21:27)
[2023-02-13] MEDS ORDERED: ONDANSETRON 4MG 2ML VIAL IV PRN (21:40)
[2023-02-14] MEDS: METOCLOPRAMIDE INJ 10MG/2ML VIAL IV SCH ×5 (00:17→23:53)
[2023-02-14 03:07] VITALS: BP 157/85; TEMP 97.9; O2SAT 92
[2023-02-14 05:40] LABS: APPEARANCE, URINE CLEAR (CLEAR); BACTERIA, URINE AUTO NEGATIVE (NEGATIVE); BILIRUBIN, URINE AUTO NEGATIVE (NEGATIVE); BLOOD, URINE BLOOD NEGATIVE (NEGATIVE); COLOR, URINE YELLOW (YELLOW); GLUCOSE, URINE (UA) AUTO NEGATIVE (NEGATIVE); KETONE, URINE AUTO NEGATIVE (NEGATIVE); LEUKOCYTE ESTERASE, URINE AUTO TRACE (NEGATIVE); NITRITE, URINE AUTO NEGATIVE (NEGATIVE); PROTEIN, URINE AUTO 2+ mg/dL (NEGATIVE); RBC, URINE AUTO 0 /HPF (0-3); SPECIFIC GRAVITY URINE AUTO 1.024 (1.002-1.035); SQUAMOUS EPITHELIAL CELL UR AU 0 /HPF (0-6); UROBILINOGEN, URINE AUTO 0.2 mg/dL (0.0-2.0); WBC, URINE AUTO 4 /HPF (0-3)
[2023-02-14 05:48] LABS: BASO # 0.1 10^3/uL (0.0-0.2); BASO % 0.3 % (0.0-1.0); EOS # 0.1 10^3/uL (0.0-0.5); EOS % 0.5 % (0.0-3.0); HEMATOCRIT 33.9 % (42.0-52.0); HEMOGLOBIN 10.6 g/dl (13.5-17.5); LYMPH # 0.8 10^3/uL (1.5-5.0); LYMPH % 5.1 % (24.0-44.0); MEAN CORPUSCULAR HEMOGLOBIN 28.6 pg (27.0-33.0); MEAN CORPUSCULAR HGB CONC 31.3 g/dl (32.0-36.5); MEAN CORPUSCULAR VOLUME 91.6 fl (80.0-96.0); MONO # 1.2 10^3/uL (0.0-0.8); MONO % 7.7 % (2.0-8.0); NEUTROPHILS # 13.6 10^3/uL (1.5-8.5); NEUTROPHILS % 85.6 % (36.0-66.0); PLATELET COUNT, AUTOMATED 441 10^3/uL (150-450); WHITE BLOOD COUNT 15.9 10^3/uL (4.0-10.0)
[2023-02-14 06:12] LABS: BLOOD UREA NITROGEN 24 MG/DL (9-23); CALCIUM LEVEL 8.6 MG/DL (8.3-10.6); CARBON DIOXIDE LEVEL 24 MMOL/L (20-31); CHLORIDE LEVEL 102 MMOL/L (98-107); CREATININE FOR GFR 1.14 MG/DL (0.70-1.30); GLOMERULAR FILTRATION RATE > 60.0 (>49); GLUCOSE, FASTING 115 MG/DL (74-106); MAGNESIUM LEVEL 2.1 MG/DL (1.8-2.4); POTASSIUM SERUM 4.8 MMOL/L (3.5-5.1); SODIUM LEVEL 137 MMOL/L (136-145)
[2023-02-14] MEDS: SODIUM CHLORIDE 0.9% INJ 10 ML SYR IV SCH ×2 (06:39→17:49)
[2023-02-14] MEDS: LACTULOSE 20GM/30ML SYRUP UDC PO SCH ×3 (06:39→12:47)
[2023-02-14] MEDS: cloNIDine 0.1MG TABLET PO SCH ×2 (06:39→14:00)
[2023-02-14 08:04] VITALS: BP 168/88; TEMP 98.6; O2SAT 96
[2023-02-14] MEDS ORDERED: BISACODYL 5MG TAB PO SCH (09:00)
[2023-02-14] MEDS: PANTOPRAZOLE 40MG VIAL IV SCH (09:57)
[2023-02-14] MEDS: DOCUSATE SOD LIQ 100MG/10ML UDC GT SCH (09:57)
[2023-02-14] MEDS: NYSTATIN 500,000U/5ML SUSP UDC SS SCH ×4 (09:57→21:00)
[2023-02-14] MEDS: ENOXAPARIN 60MG/0.6ML SYRINGE (J1650 PER 10MG) SC SCH ×2 (09:57→21:36)
[2023-02-14] MEDS: **hydrALAZINE HCL** 25 MG TAB GT SCH ×3 (09:58→17:46)
[2023-02-14] MEDS: CARVedilol 12.5 MG TAB GT SCH (09:58)
[2023-02-14] MEDS: DULoxetine 30MG CAPSULE (CYMBALTA) PO SCH (09:58)
[2023-02-14] MEDS: GABAPENTIN 400MG CAP GT SCH ×2 (09:58→15:18)
[2023-02-14] MEDS: ASPIRIN 81MG CHEW TABLET PO SCH (09:59)
[2023-02-14] MEDS: CETIRIZINE (ZyrTEC) 10 MG TAB PO SCH (09:59)
[2023-02-14] MEDS: SENNA 8.6 MG TAB (SENOKOT) GT SCH (09:59)
[2023-02-14] MEDS: **hydrALAZINE** 50 MG TAB GT SCH ×3 (10:02→17:45)
[2023-02-14 12:30] VITALS: BP 154/74; TEMP 98.3; O2SAT 96
[2023-02-14] MEDS: fentaNYL 25 MCG/HR PATCH TOP SCH (15:17)
[2023-02-14 16:24] LABS: CK-MB VALUE MASS 2.4 NG/ML (<3.6)
[2023-02-14 16:26] LABS: CPK CREATINE PHOSPHOKINASE 61 U/L (46-171); MB/CK RELATIVE INDEX 3.93 (< OR =4)
[2023-02-14 17:38] VITALS: BP 153/83; TEMP 96.8; O2SAT 97
[2023-02-14] MEDS: LR 1,000 ML IV SCH (17:46)
[2023-02-14 17:47] LABS: ALBUMIN 2.1 G/DL (3.2-5.2); ALKALINE PHOSPHATASE 129 U/L (46-116); ALT/SGPT 43 U/L (7.0-40); AST/SGOT 31 U/L (<34); BILIRUBIN,TOTAL 0.3 MG/DL (0.3-1.2); BLOOD UREA NITROGEN 28 MG/DL (9-23); CARBON DIOXIDE LEVEL 24 MMOL/L (20-31); CHLORIDE LEVEL 101 MMOL/L (98-107); CREATININE FOR GFR 1.27 MG/DL (0.70-1.30); GLOMERULAR FILTRATION RATE > 60.0 (>49); GLUCOSE, FASTING 115 MG/DL (74-106); POTASSIUM SERUM 4.7 MMOL/L (3.5-5.1); SODIUM LEVEL 135 MMOL/L (136-145); TOTAL PROTEIN 7.2 G/DL (5.7-8.2)
[2023-02-14 18:46] LABS: VENOUS BASE EXCESS -2.6 (-2.0-2.0); VENOUS HCO3 21.7 MMOL/L (23.0-27.0); VENOUS O2 SATURATION 83.7 % (60.0-80.0); VENOUS PARTIAL PRESSURE CO2 35.7 mmHg (38.0-50.0); VENOUS PARTIAL PRESSURE O2 50.8 mmHg (30.0-50.0); VENOUS PH 7.401 UNITS (7.330-7.430); VENOUS TOTAL CO2 22.8 MMOL/L (24.0-28.0)
[2023-02-14 18:52] LABS: BASO # 0.1 10^3/uL (0.0-0.2); BASO % 0.3 % (0.0-1.0); EOS # 0.1 10^3/uL (0.0-0.5); EOS % 0.3 % (0.0-3.0); LYMPH # 1.1 10^3/uL (1.5-5.0); LYMPH % 6.1 % (24.0-44.0); MEAN CORPUSCULAR HEMOGLOBIN 28.6 pg (27.0-33.0); MEAN CORPUSCULAR HGB CONC 31.4 g/dl (32.0-36.5); MEAN CORPUSCULAR VOLUME 91.1 fl (80.0-96.0); MONO # 1.3 10^3/uL (0.0-0.8); MONO % 7.5 % (2.0-8.0); NEUTROPHILS # 15.2 10^3/uL (1.5-8.5); NEUTROPHILS % 84.9 % (36.0-66.0); PLATELET COUNT, AUTOMATED 525 10^3/uL (150-450); RED BLOOD COUNT 3.84 10^6/uL (4.30-6.10); WHITE BLOOD COUNT 17.9 10^3/uL (4.0-10.0)
[2023-02-14 19:03] LABS: INR 1.06; PROTHROMBIN TIME 13.5 SECONDS (12.5-14.5)
[2023-02-14 19:04] LABS: PARTIAL THROMBOPLASTIN TIME 29.6 SECONDS (24.8-34.2)
[2023-02-14 19:49] VITALS: BP 146/93; TEMP 97; O2SAT 98
[2023-02-14] MEDS: MORPHINE 2 MG/ML 1ML VIAL IV PRN (21:31)
[2023-02-14] MEDS: hydrALAZINE 20MG/ML 1ML VIAL IV SCH (21:37)
[2023-02-14] MEDS: SODIUM CHLORIDE 0.9% INJ 10 ML SYR IV PRN ×2 (21:37→23:54)
[2023-02-14 23:18] VITALS: BP 150/81; TEMP 97.4; O2SAT 97
[2023-02-15] VITALS (8 sets, daily range): BP systolic 142–190; BP diastolic 73–91; TEMP 97.1–101; O2SAT 93–98
[2023-02-15] MEDS: hydrALAZINE 20MG/ML 1ML VIAL IV SCH ×4 (04:07→20:37)
[2023-02-15] MEDS: LR 1,000 ML IV SCH ×3 (04:07→22:51)
[2023-02-15 04:30] LABS: BASO % 0.3 % (0.0-1.0); EOS % 0.3 % (0.0-3.0); HEMATOCRIT 31.7 % (42.0-52.0); HEMOGLOBIN 9.9 g/dl (13.5-17.5); LYMPH # 1.1 10^3/uL (1.5-5.0); LYMPH % 8.3 % (24.0-44.0); MEAN CORPUSCULAR HEMOGLOBIN 28.2 pg (27.0-33.0); MEAN CORPUSCULAR HGB CONC 31.2 g/dl (32.0-36.5); MEAN CORPUSCULAR VOLUME 90.3 fl (80.0-96.0); MONO # 1.3 10^3/uL (0.0-0.8); MONO % 9.7 % (2.0-8.0); NEUTROPHILS # 10.8 10^3/uL (1.5-8.5); NEUTROPHILS % 80.8 % (36.0-66.0); PLATELET COUNT, AUTOMATED 463 10^3/uL (150-450); RED BLOOD COUNT 3.51 10^6/uL (4.30-6.10); WHITE BLOOD COUNT 13.4 10^3/uL (4.0-10.0)
[2023-02-15 04:52] LABS: CALCIUM LEVEL 8.5 MG/DL (8.3-10.6); CREATININE FOR GFR 1.41 MG/DL (0.70-1.30); GLOMERULAR FILTRATION RATE 53.9 (>49); POTASSIUM SERUM 4.8 MMOL/L (3.5-5.1)
[2023-02-15] MEDS: SODIUM CHLORIDE 0.9% INJ 10 ML SYR IV SCH ×2 (05:06→18:28)
[2023-02-15] MEDS: METOCLOPRAMIDE INJ 10MG/2ML VIAL IV SCH ×4 (05:06→23:30)
[2023-02-15] MEDS: DOCUSATE SOD LIQ 100MG/10ML UDC GT SCH ×2 (09:42→21:00)
[2023-02-15] MEDS: PANTOPRAZOLE 40MG VIAL IV SCH (09:42)
[2023-02-15] MEDS: ENOXAPARIN 60MG/0.6ML SYRINGE (J1650 PER 10MG) SC SCH ×2 (09:42→20:36)
[2023-02-15] MEDS: CARVedilol 12.5 MG TAB GT SCH ×2 (09:43→21:00)
[2023-02-15] MEDS: ASPIRIN 81MG CHEW TABLET PO SCH (09:43)
[2023-02-15] MEDS: NYSTATIN 500,000U/5ML SUSP UDC SS SCH ×4 (09:43→21:00)
[2023-02-15] MEDS: MORPHINE 2 MG/ML 1ML VIAL IV PRN (14:31)
[2023-02-15] MEDS ORDERED: ACETAMINOPHEN *IV* 1,000 MG in IV 1 EA IV ONE (21:00)
[2023-02-15] MEDS: SODIUM CHLORIDE 0.9% INJ 10 ML SYR IV PRN (23:31)
[2023-02-16] VITALS (7 sets, daily range): BP systolic 141–190; BP diastolic 71–98; TEMP 97.9–99.2; O2SAT 94–97
[2023-02-16] MEDS ORDERED: RAMELTEON 8 MG TAB (ROZEREM) PO PRN (01:00)
[2023-02-16] MEDS ORDERED: LABETALOL 100MG/20ML VIAL IV ONE (01:00)
[2023-02-16] MEDS ORDERED: diphenhydrAMINE 50MG/ML VIAL IM ONE (02:00)
[2023-02-16] MEDS: MORPHINE 2 MG/ML 1ML VIAL IV PRN (02:55)
[2023-02-16] MEDS: hydrALAZINE 20MG/ML 1ML VIAL IV SCH ×4 (03:37→22:11)
[2023-02-16] MEDS ORDERED: OLANZapine INTRAMUSCULAR 10MG VIAL IM ONE (05:00)
[2023-02-16] MEDS: METOCLOPRAMIDE INJ 10MG/2ML VIAL IV SCH ×3 (05:15→18:11)
[2023-02-16] MEDS: SODIUM CHLORIDE 0.9% INJ 10 ML SYR IV SCH ×2 (05:17→18:11)
[2023-02-16 05:23] LABS: BASO % 0.1 % (0.0-1.0); EOS # 0.1 10^3/uL (0.0-0.5); HEMOGLOBIN 8.7 g/dl (13.5-17.5); LYMPH # 0.8 10^3/uL (1.5-5.0); LYMPH % 8.3 % (24.0-44.0); MEAN CORPUSCULAR HEMOGLOBIN 28.2 pg (27.0-33.0); MEAN CORPUSCULAR HGB CONC 31.1 g/dl (32.0-36.5); MEAN CORPUSCULAR VOLUME 90.9 fl (80.0-96.0); MONO % 10.3 % (2.0-8.0); NEUTROPHILS # 7.8 10^3/uL (1.5-8.5); NEUTROPHILS % 79.9 % (36.0-66.0); PLATELET COUNT, AUTOMATED 381 10^3/uL (150-450); RED BLOOD COUNT 3.08 10^6/uL (4.30-6.10); WHITE BLOOD COUNT 9.8 10^3/uL (4.0-10.0)
[2023-02-16 06:07] LABS: BLOOD UREA NITROGEN 28 MG/DL (9-23); CALCIUM LEVEL 7.9 MG/DL (8.3-10.6); CARBON DIOXIDE LEVEL 24 MMOL/L (20-31); CHLORIDE LEVEL 103 MMOL/L (98-107); CREATININE FOR GFR 1.23 MG/DL (0.70-1.30); GLOMERULAR FILTRATION RATE > 60.0 (>49); GLUCOSE, FASTING 96 MG/DL (74-106); MAGNESIUM LEVEL 1.7 MG/DL (1.8-2.4); POTASSIUM SERUM 4.1 MMOL/L (3.5-5.1); SODIUM LEVEL 136 MMOL/L (136-145)
[2023-02-16] MEDS ORDERED: MAG SULF 1GM/100ML (MAG RUN) 1 GM in IV 1 EA IV ONE (08:00)
[2023-02-16] MEDS: ENOXAPARIN 60MG/0.6ML SYRINGE (J1650 PER 10MG) SC SCH ×2 (08:15→22:11)
[2023-02-16] MEDS: PANTOPRAZOLE 40MG VIAL IV SCH (08:15)
[2023-02-16] MEDS: SODIUM CHLORIDE 0.9% INJ 10 ML SYR IV PRN (08:16)
[2023-02-16] MEDS: DULoxetine 30MG CAPSULE (CYMBALTA) PO SCH ×2 (09:00→22:11)
[2023-02-16] MEDS: ASPIRIN 81MG CHEW TABLET PO SCH (09:12)
[2023-02-16] MEDS: NYSTATIN 500,000U/5ML SUSP UDC SS SCH ×6 (09:12→22:10)
[2023-02-16] MEDS: DOCUSATE SOD LIQ 100MG/10ML UDC GT SCH ×2 (09:12→22:10)
[2023-02-16] MEDS: CARVedilol 12.5 MG TAB GT SCH ×2 (09:13→22:10)
[2023-02-16] MEDS: ACETAMINOPHEN TAB 650MG DOSE (2X325MG) PO PRN (09:14)
[2023-02-16] MEDS: LR 1,000 ML IV SCH (09:15)
[2023-02-16] MEDS: LACTULOSE 20GM/30ML SYRUP UDC PO SCH ×2 (12:36→22:10)
[2023-02-16] MEDS: BISACODYL 10MG SUPP PR SCH (12:37)
[2023-02-16] MEDS: INSULIN LISPRO (NovoLOG) PER UNIT SC SCH (17:48)
[2023-02-16] MEDS ORDERED: MULTIVITAMIN -ADULT INJECTION 10 ML, ZINC/COPPER/MANGANESE/SELENIUM 1 ML in AMINO AC/EL... IV SCH (18:00)
[2023-02-17] VITALS (8 sets, daily range): BP systolic 122–164; BP diastolic 64–82; TEMP 97.4–98.7; O2SAT 94–97
[2023-02-17] MEDS: METOCLOPRAMIDE INJ 10MG/2ML VIAL IV SCH ×4 (00:49→17:49)
[2023-02-17] MEDS: hydrALAZINE 20MG/ML 1ML VIAL IV SCH ×4 (03:34→21:29)
[2023-02-17] MEDS: INSULIN LISPRO (NovoLOG) PER UNIT SC SCH ×2 (06:00)
[2023-02-17] MEDS: SODIUM CHLORIDE 0.9% INJ 10 ML SYR IV SCH ×2 (06:29→16:06)
[2023-02-17 06:47] LABS: BASO % 0.2 % (0.0-1.0); EOS # 0.2 10^3/uL (0.0-0.5); EOS % 1.3 % (0.0-3.0); HEMATOCRIT 27.1 % (42.0-52.0); HEMOGLOBIN 8.4 g/dl (13.5-17.5); LYMPH # 0.9 10^3/uL (1.5-5.0); LYMPH % 7.5 % (24.0-44.0); MEAN CORPUSCULAR HEMOGLOBIN 28.6 pg (27.0-33.0); MEAN CORPUSCULAR VOLUME 92.2 fl (80.0-96.0); MONO # 1.2 10^3/uL (0.0-0.8); MONO % 9.8 % (2.0-8.0); NEUTROPHILS # 9.5 10^3/uL (1.5-8.5); NEUTROPHILS % 80.4 % (36.0-66.0); PLATELET COUNT, AUTOMATED 336 10^3/uL (150-450); RED BLOOD COUNT 2.94 10^6/uL (4.30-6.10); WHITE BLOOD COUNT 11.8 10^3/uL (4.0-10.0)
[2023-02-17 07:18] LABS: BLOOD UREA NITROGEN 22 MG/DL (9-23); CALCIUM LEVEL 8.1 MG/DL (8.3-10.6); CARBON DIOXIDE LEVEL 23 MMOL/L (20-31); CHLORIDE LEVEL 105 MMOL/L (98-107); CREATININE FOR GFR 1.15 MG/DL (0.70-1.30); GLOMERULAR FILTRATION RATE > 60.0 (>49); GLUCOSE, FASTING 131 MG/DL (74-106); MAGNESIUM LEVEL 2.1 MG/DL (1.8-2.4); POTASSIUM SERUM 3.7 MMOL/L (3.5-5.1); SODIUM LEVEL 139 MMOL/L (136-145)
[2023-02-17] MEDS: PANTOPRAZOLE 40MG VIAL IV SCH (09:06)
[2023-02-17] MEDS: NYSTATIN 500,000U/5ML SUSP UDC SS SCH ×4 (10:12→21:00)
[2023-02-17] MEDS: BISACODYL 10MG SUPP PR SCH (10:12)
[2023-02-17] MEDS: DOCUSATE SOD LIQ 100MG/10ML UDC GT SCH ×2 (10:12→21:28)
[2023-02-17] MEDS: LACTULOSE 20GM/30ML SYRUP UDC PO SCH ×2 (10:12→21:28)
[2023-02-17] MEDS: CETIRIZINE (ZyrTEC) 10 MG TAB PO SCH (10:13)
[2023-02-17] MEDS: DULoxetine 30MG CAPSULE (CYMBALTA) PO SCH ×2 (10:13→21:28)
[2023-02-17] MEDS: CARVedilol 12.5 MG TAB GT SCH ×2 (10:14→21:28)
[2023-02-17] MEDS: ASPIRIN 81MG CHEW TABLET PO SCH (10:14)
[2023-02-17] MEDS: ENOXAPARIN 60MG/0.6ML SYRINGE (J1650 PER 10MG) SC SCH ×2 (10:15→21:29)
[2023-02-17] MEDS: SODIUM CHLORIDE 0.9% INJ 10 ML SYR IV PRN ×3 (10:16→12:27)
[2023-02-17] MEDS: GABAPENTIN 400MG CAP GT SCH ×3 (10:21→21:28)
[2023-02-17] MEDS: fentaNYL 25 MCG/HR PATCH TOP SCH (11:48)
[2023-02-17] MEDS: FENTANYL REMOVAL DOCUMENTATION MISC XX SCH (11:54)
[2023-02-17] MEDS: ATORVASTATIN 20 MG TAB GT SCH (21:28)
[2023-02-17] MEDS: MORPHINE 2 MG/ML 1ML VIAL IV PRN (23:04)
[2023-02-18] MEDS: METOCLOPRAMIDE INJ 10MG/2ML VIAL IV SCH ×4 (00:17→17:21)
[2023-02-18] MEDS: hydrALAZINE 20MG/ML 1ML VIAL IV SCH ×2 (03:00→08:16)
[2023-02-18 04:02] VITALS: BP 144/64; TEMP 97.4; O2SAT 96
[2023-02-18] MEDS: SODIUM CHLORIDE 0.9% INJ 10 ML SYR IV SCH ×2 (06:14→17:22)
[2023-02-18 06:34] LABS: HEMATOCRIT 27.7 % (42.0-52.0); HEMOGLOBIN 8.4 g/dl (13.5-17.5); MEAN CORPUSCULAR HEMOGLOBIN 28.1 pg (27.0-33.0); MEAN CORPUSCULAR HGB CONC 30.3 g/dl (32.0-36.5); MEAN CORPUSCULAR VOLUME 92.6 fl (80.0-96.0); PLATELET COUNT, AUTOMATED 338 10^3/uL (150-450); RED BLOOD COUNT 2.99 10^6/uL (4.30-6.10); WHITE BLOOD COUNT 13.5 10^3/uL (4.0-10.0)
[2023-02-18 07:00] LABS: ALBUMIN 1.9 G/DL (3.2-5.2); ALKALINE PHOSPHATASE 86 U/L (46-116); ALT/SGPT 31 U/L (7.0-40); AST/SGOT 28 U/L (<34); BILIRUBIN,TOTAL 0.2 MG/DL (0.3-1.2); BLOOD UREA NITROGEN 21 MG/DL (9-23); CALCIUM LEVEL 8.1 MG/DL (8.3-10.6); CARBON DIOXIDE LEVEL 24 MMOL/L (20-31); CHLORIDE LEVEL 102 MMOL/L (98-107); GLOMERULAR FILTRATION RATE > 60.0 (>49); GLUCOSE, FASTING 115 MG/DL (74-106); SODIUM LEVEL 134 MMOL/L (136-145); TOTAL PROTEIN 6.3 G/DL (5.7-8.2)
[2023-02-18 07:38] VITALS: BP 180/77; TEMP 97.1; O2SAT 95
[2023-02-18 07:50] VITALS: BP 174/78
[2023-02-18] MEDS: PANTOPRAZOLE 40MG VIAL IV SCH (08:16)
[2023-02-18] MEDS: NYSTATIN 500,000U/5ML SUSP UDC SS SCH ×2 (08:18→12:32)
[2023-02-18] MEDS: LACTULOSE 20GM/30ML SYRUP UDC PO SCH ×2 (08:18→21:35)
[2023-02-18] MEDS: DOCUSATE SOD LIQ 100MG/10ML UDC GT SCH ×2 (08:18→21:30)
[2023-02-18] MEDS: CARVedilol 12.5 MG TAB GT SCH ×2 (08:19→21:34)
[2023-02-18] MEDS: BISACODYL 10MG SUPP PR SCH (08:19)
[2023-02-18] MEDS: GABAPENTIN 400MG CAP GT SCH ×3 (08:20→21:34)
[2023-02-18] MEDS: CETIRIZINE (ZyrTEC) 10 MG TAB PO SCH (08:20)
[2023-02-18] MEDS: DULoxetine 30MG CAPSULE (CYMBALTA) PO SCH ×2 (08:20→21:34)
[2023-02-18] MEDS: ASPIRIN 81MG CHEW TABLET PO SCH (08:20)
[2023-02-18] MEDS: ENOXAPARIN 60MG/0.6ML SYRINGE (J1650 PER 10MG) SC SCH ×2 (08:21→21:35)
[2023-02-18] MEDS: SODIUM CHLORIDE 0.9% INJ 10 ML SYR IV PRN ×2 (08:28→12:35)
[2023-02-18 11:17] VITALS: BP 118/62
[2023-02-18] MEDS ORDERED: **hydrALAZINE** 10 MG TAB GT SCH (12:00)
[2023-02-18] MEDS ORDERED: **hydrALAZINE** 10 MG TAB NG SCH (15:00)
[2023-02-18] MEDS: **hydrALAZINE** 10 MG TAB GT SCH ×2 (16:22→21:35)
[2023-02-18 19:43] VITALS: BP 134/68; TEMP 97; O2SAT 96
[2023-02-18 21:23] VITALS: BP 149/79
[2023-02-18] MEDS: ATORVASTATIN 20 MG TAB GT SCH (21:35)
[2023-02-19] VITALS (12 sets, daily range): BP systolic 108–189; BP diastolic 55–91; TEMP 97.1–101.4; O2SAT 94–97
[2023-02-19] MEDS: MORPHINE 2 MG/ML 1ML VIAL IV PRN ×4 (00:03→18:37)
[2023-02-19] MEDS: METOCLOPRAMIDE INJ 10MG/2ML VIAL IV SCH ×4 (00:04→17:34)
[2023-02-19] MEDS: SODIUM CHLORIDE 0.9% INJ 10 ML SYR IV PRN (00:07)
[2023-02-19] MEDS: LR 1,000 ML IV SCH ×2 (03:20→15:36)
[2023-02-19] MEDS: **hydrALAZINE** 10 MG TAB GT SCH ×2 (03:20→08:21)
[2023-02-19] MEDS: SODIUM CHLORIDE 0.9% INJ 10 ML SYR IV SCH ×2 (05:54→17:33)
[2023-02-19 06:19] LABS: HEMATOCRIT 26.1 % (42.0-52.0); HEMOGLOBIN 7.9 g/dl (13.5-17.5); MEAN CORPUSCULAR HEMOGLOBIN 28.2 pg (27.0-33.0); MEAN CORPUSCULAR HGB CONC 30.3 g/dl (32.0-36.5); MEAN CORPUSCULAR VOLUME 93.2 fl (80.0-96.0); PLATELET COUNT, AUTOMATED 314 10^3/uL (150-450); WHITE BLOOD COUNT 13.7 10^3/uL (4.0-10.0)
[2023-02-19 06:35] LABS: ALBUMIN 1.9 G/DL (3.2-5.2); ALKALINE PHOSPHATASE 86 U/L (46-116); ALT/SGPT 36 U/L (7.0-40); AST/SGOT 29 U/L (<34); BILIRUBIN,TOTAL 0.2 MG/DL (0.3-1.2); BLOOD UREA NITROGEN 24 MG/DL (9-23); CALCIUM LEVEL 7.9 MG/DL (8.3-10.6); CARBON DIOXIDE LEVEL 24 MMOL/L (20-31); CHLORIDE LEVEL 104 MMOL/L (98-107); CREATININE FOR GFR 1.25 MG/DL (0.70-1.30); GLOMERULAR FILTRATION RATE > 60.0 (>49); GLUCOSE, FASTING 115 MG/DL (74-106); SODIUM LEVEL 136 MMOL/L (136-145); TOTAL PROTEIN 5.9 G/DL (5.7-8.2)
[2023-02-19] MEDS: GABAPENTIN 400MG CAP GT SCH (08:18)
[2023-02-19] MEDS: ASPIRIN 81MG CHEW TABLET PO SCH (08:19)
[2023-02-19] MEDS: CARVedilol 12.5 MG TAB GT SCH (08:19)
[2023-02-19] MEDS: CETIRIZINE (ZyrTEC) 10 MG TAB PO SCH (08:20)
[2023-02-19] MEDS: DULoxetine 30MG CAPSULE (CYMBALTA) PO SCH (08:20)
[2023-02-19] MEDS: PANTOPRAZOLE 40MG VIAL IV SCH (08:21)
[2023-02-19] MEDS: ENOXAPARIN 60MG/0.6ML SYRINGE (J1650 PER 10MG) SC SCH ×2 (08:21→21:54)
[2023-02-19] MEDS: BISACODYL 10MG SUPP PR SCH (09:00)
[2023-02-19] MEDS: DOCUSATE SOD LIQ 100MG/10ML UDC GT SCH (09:00)
[2023-02-19] MEDS: LACTULOSE 20GM/30ML SYRUP UDC PO SCH (09:00)
[2023-02-19 14:33] LABS: CK-MB VALUE MASS 1.5 NG/ML (<3.6)
[2023-02-19 14:34] LABS: MB/CK RELATIVE INDEX 3.4 (< OR =4)
[2023-02-19] MEDS ORDERED: FLEET ENEMA PR ONE (15:20)
[2023-02-19] MEDS: hydrALAZINE 20MG/ML 1ML VIAL IV SCH ×2 (15:36→21:55)
[2023-02-19] MEDS ORDERED: hydrALAZINE 20MG/ML 1ML VIAL IV STA (18:16)
[2023-02-19] MEDS: FLEET ENEMA PR SCH (21:00)
[2023-02-19] MEDS ORDERED: ACETAMINOPHEN *IV* 1,000 MG in IV 1 EA IV ONE (22:00)
[2023-02-20] VITALS (7 sets, daily range): BP systolic 159–186; BP diastolic 70–87; TEMP 97.1–98.5; O2SAT 92–98
[2023-02-20] MEDS: METOCLOPRAMIDE INJ 10MG/2ML VIAL IV SCH ×4 (02:29→18:34)
[2023-02-20] MEDS: MORPHINE 2 MG/ML 1ML VIAL IV PRN ×2 (02:30→20:25)
[2023-02-20] MEDS: SODIUM CHLORIDE 0.9% INJ 10 ML SYR IV SCH ×2 (06:48→18:32)
[2023-02-20 09:18] LABS: HEMATOCRIT 26.5 % (42.0-52.0); HEMOGLOBIN 8.2 g/dl (13.5-17.5); MEAN CORPUSCULAR HEMOGLOBIN 28.5 pg (27.0-33.0); MEAN CORPUSCULAR HGB CONC 30.9 g/dl (32.0-36.5); PLATELET COUNT, AUTOMATED 290 10^3/uL (150-450); RED BLOOD COUNT 2.88 10^6/uL (4.30-6.10); WHITE BLOOD COUNT 15.3 10^3/uL (4.0-10.0)
[2023-02-20] MEDS: ASPIRIN 300 MG SUPP PR SCH (09:38)
[2023-02-20] MEDS: PANTOPRAZOLE 40MG VIAL IV SCH (09:39)
[2023-02-20] MEDS: ENOXAPARIN 60MG/0.6ML SYRINGE (J1650 PER 10MG) SC SCH ×2 (09:39→20:25)
[2023-02-20 09:50] LABS: ALBUMIN 1.8 G/DL (3.2-5.2); ALKALINE PHOSPHATASE 80 U/L (46-116); ALT/SGPT 27 U/L (7.0-40); AST/SGOT 22 U/L (<34); BILIRUBIN,TOTAL 0.3 MG/DL (0.3-1.2); BLOOD UREA NITROGEN 19 MG/DL (9-23); CALCIUM LEVEL 7.8 MG/DL (8.3-10.6); CARBON DIOXIDE LEVEL 24 MMOL/L (20-31); CHLORIDE LEVEL 105 MMOL/L (98-107); CREATININE FOR GFR 1.06 MG/DL (0.70-1.30); GLOMERULAR FILTRATION RATE > 60.0 (>49); GLUCOSE, FASTING 90 MG/DL (74-106); POTASSIUM SERUM 3.7 MMOL/L (3.5-5.1); SODIUM LEVEL 138 MMOL/L (136-145); TOTAL PROTEIN 5.7 G/DL (5.7-8.2)
[2023-02-20] MEDS: FLEET ENEMA PR SCH ×2 (11:53→21:00)
[2023-02-20] MEDS: BISACODYL 10MG SUPP PR SCH (11:53)
[2023-02-20] MEDS: hydrALAZINE 20MG/ML 1ML VIAL IV SCH ×2 (12:08→18:34)
[2023-02-20] MEDS: fentaNYL 25 MCG/HR PATCH TOP SCH (12:09)
[2023-02-20] MEDS: FENTANYL REMOVAL DOCUMENTATION MISC XX SCH (12:10)
[2023-02-20] MEDS: LR 1,000 ML IV SCH (15:09)
[2023-02-20] MEDS: cefTRIAXone SOD 1 GM in D5W MINI-BAG PLUS 50 ML IV SCH (15:20)
[2023-02-21] MEDS: LR 1,000 ML IV SCH ×5 (00:01→18:37)
[2023-02-21] MEDS: METOCLOPRAMIDE INJ 10MG/2ML VIAL IV SCH ×4 (00:02→18:28)
[2023-02-21] MEDS: hydrALAZINE 20MG/ML 1ML VIAL IV SCH ×4 (00:03→18:28)
[2023-02-21] MEDS ORDERED: ONDANSETRON 4MG 2ML VIAL IV PRN (02:00)
[2023-02-21] MEDS: MORPHINE 2 MG/ML 1ML VIAL IV PRN ×2 (02:57→18:31)
[2023-02-21 04:00] VITALS: BP 149/71; TEMP 98.4; O2SAT 96
[2023-02-21] MEDS: SODIUM CHLORIDE 0.9% INJ 10 ML SYR IV SCH ×2 (06:15→18:00)
[2023-02-21 07:39] VITALS: BP 152/88; TEMP 98.2; O2SAT 97
[2023-02-21] MEDS: FLEET ENEMA PR SCH ×2 (09:00→20:53)
[2023-02-21] MEDS: ENOXAPARIN 60MG/0.6ML SYRINGE (J1650 PER 10MG) SC SCH ×3 (09:00→20:51)
[2023-02-21] MEDS: PANTOPRAZOLE 40MG VIAL IV SCH (10:46)
[2023-02-21] MEDS: BISACODYL 10MG SUPP PR SCH (10:46)
[2023-02-21] MEDS: ASPIRIN 300 MG SUPP PR SCH (10:46)
[2023-02-21 12:00] VITALS: BP 184/86; TEMP 97.4; O2SAT 94
[2023-02-21] MEDS: cefTRIAXone SOD 1 GM in D5W MINI-BAG PLUS 50 ML IV SCH ×2 (15:00→18:37)
[2023-02-21 16:17] VITALS: BP 138/68; TEMP 97.6; O2SAT 96
[2023-02-21 19:04] LABS: HEMOGLOBIN 8.3 g/dl (13.5-17.5); MEAN CORPUSCULAR HGB CONC 30.7 g/dl (32.0-36.5); MEAN CORPUSCULAR VOLUME 91.2 fl (80.0-96.0); PLATELET COUNT, AUTOMATED 309 10^3/uL (150-450); RED BLOOD COUNT 2.96 10^6/uL (4.30-6.10); WHITE BLOOD COUNT 10.8 10^3/uL (4.0-10.0)
[2023-02-21 19:26] LABS: ALBUMIN 1.8 G/DL (3.2-5.2); ALKALINE PHOSPHATASE 76 U/L (46-116); ALT/SGPT 26 U/L (7.0-40); AST/SGOT 22 U/L (<34); BILIRUBIN,TOTAL 0.3 MG/DL (0.3-1.2); BLOOD UREA NITROGEN 14 MG/DL (9-23); CALCIUM LEVEL 7.7 MG/DL (8.3-10.6); CARBON DIOXIDE LEVEL 22 MMOL/L (20-31); CHLORIDE LEVEL 107 MMOL/L (98-107); CREATININE FOR GFR 0.96 MG/DL (0.70-1.30); GLOMERULAR FILTRATION RATE > 60.0 (>49); GLUCOSE, FASTING 97 MG/DL (74-106); POTASSIUM SERUM 3.1 MMOL/L (3.5-5.1); SODIUM LEVEL 142 MMOL/L (136-145); TOTAL PROTEIN 5.9 G/DL (5.7-8.2)
[2023-02-21 20:22] VITALS: BP 146/88; TEMP 98.3; O2SAT 98
[2023-02-21] MEDS: KCL 10MEQ/100ML SWI (KRUN) 10 MEQ in IV 1 EA IV SCH ×3 (20:53→23:15)
[2023-02-21 23:35] VITALS: BP 136/84; TEMP 97.8; O2SAT 96
[2023-02-22] VITALS (8 sets, daily range): BP systolic 158–196; BP diastolic 68–94; TEMP 97.5–98.5; O2SAT 93–97
[2023-02-22] MEDS: hydrALAZINE 20MG/ML 1ML VIAL IV SCH ×2 (00:01→05:32)
[2023-02-22] MEDS: METOCLOPRAMIDE INJ 10MG/2ML VIAL IV SCH ×3 (00:01→11:09)
[2023-02-22] MEDS: MORPHINE 2 MG/ML 1ML VIAL IV PRN ×2 (02:37→16:30)
[2023-02-22] MEDS: LR 1,000 ML IV SCH ×2 (03:38→09:09)
[2023-02-22] MEDS: SODIUM CHLORIDE 0.9% INJ 10 ML SYR IV SCH (05:33)
[2023-02-22 06:40] LABS: HEMATOCRIT 27.7 % (42.0-52.0); HEMOGLOBIN 8.5 g/dl (13.5-17.5); MEAN CORPUSCULAR HGB CONC 30.7 g/dl (32.0-36.5); MEAN CORPUSCULAR VOLUME 91.1 fl (80.0-96.0); PLATELET COUNT, AUTOMATED 324 10^3/uL (150-450); RED BLOOD COUNT 3.04 10^6/uL (4.30-6.10); WHITE BLOOD COUNT 11.4 10^3/uL (4.0-10.0)
[2023-02-22 07:00] LABS: ALBUMIN 1.8 G/DL (3.2-5.2); ALKALINE PHOSPHATASE 71 U/L (46-116); ALT/SGPT 29 U/L (7.0-40); AST/SGOT 23 U/L (<34); BILIRUBIN,TOTAL 0.3 MG/DL (0.3-1.2); BLOOD UREA NITROGEN 13 MG/DL (9-23); CALCIUM LEVEL 7.9 MG/DL (8.3-10.6); CARBON DIOXIDE LEVEL 24 MMOL/L (20-31); CHLORIDE LEVEL 104 MMOL/L (98-107); CREATININE FOR GFR 0.94 MG/DL (0.70-1.30); GLOMERULAR FILTRATION RATE > 60.0 (>49); GLUCOSE, FASTING 87 MG/DL (74-106); POTASSIUM SERUM 3.2 MMOL/L (3.5-5.1); SODIUM LEVEL 140 MMOL/L (136-145); TOTAL PROTEIN 6.1 G/DL (5.7-8.2)
[2023-02-22 07:06] LABS: HDL CHOLESTEROL 20.7 MG/DL (>40); LDL CHOLESTEROL 40.9 MG/DL (<100); NON-HDL-C 62.3 MG/DL
[2023-02-22] MEDS: ASPIRIN 300 MG SUPP PR SCH (08:48)
[2023-02-22] MEDS: ENOXAPARIN 60MG/0.6ML SYRINGE (J1650 PER 10MG) SC SCH ×2 (08:49→19:41)
[2023-02-22] MEDS: PANTOPRAZOLE 40MG VIAL IV SCH (08:49)
[2023-02-22] MEDS: FLEET ENEMA PR SCH ×2 (08:50→20:00)
[2023-02-22] MEDS ORDERED: fentaNYL 25 MCG/HR PATCH TOP SCH (09:00)
[2023-02-22] MEDS: BISACODYL 10MG SUPP PR SCH (09:41)
[2023-02-22] MEDS ORDERED: GASTROGRAFIN SOLUTION 30ML As Ordered ONE (10:13)
[2023-02-22] MEDS ORDERED: GASTROGRAFIN SOLUTION 30ML PEG ONE ×2 (10:15)
[2023-02-22] MEDS: **hydrALAZINE HCL** 25 MG TAB PEG SCH ×2 (11:11→16:29)
[2023-02-22] MEDS ORDERED: POTASSIUM CHLORIDE 10% LIQ 20MEQ/15ML UDC PEG ONE (15:45)
[2023-02-22] MEDS: cefTRIAXone SOD 1 GM in D5W MINI-BAG PLUS 50 ML IV SCH (16:29)
[2023-02-22] MEDS ORDERED: **hydrALAZINE** 50 MG TAB PO ONE (18:50)
[2023-02-22] MEDS ORDERED: PILL CUTTER 1 EACH XX ONE (19:38)
[2023-02-22] MEDS: ATORVASTATIN 10 MG TAB PEG SCH (19:42)
[2023-02-22] MEDS ORDERED: RAMELTEON 8 MG TAB (ROZEREM) PO PRN (20:20)
[2023-02-22] MEDS ORDERED: FLUoxetine 20MG CAP PO SCH (21:00)
[2023-02-23] VITALS (7 sets, daily range): BP systolic 128–185; BP diastolic 77–94; TEMP 97.2–98.7; O2SAT 95–98
[2023-02-23] MEDS: **hydrALAZINE** 50 MG TAB PEG SCH ×4 (00:45→18:41)
[2023-02-23] MEDS: MORPHINE 2 MG/ML 1ML VIAL IV PRN ×2 (01:28→22:13)
[2023-02-23 05:57] LABS: HEMATOCRIT 30.1 % (42.0-52.0); HEMOGLOBIN 9.2 g/dl (13.5-17.5); MEAN CORPUSCULAR HEMOGLOBIN 27.7 pg (27.0-33.0); MEAN CORPUSCULAR HGB CONC 30.6 g/dl (32.0-36.5); MEAN CORPUSCULAR VOLUME 90.7 fl (80.0-96.0); PLATELET COUNT, AUTOMATED 366 10^3/uL (150-450); RED BLOOD COUNT 3.32 10^6/uL (4.30-6.10); WHITE BLOOD COUNT 14.2 10^3/uL (4.0-10.0)
[2023-02-23 06:29] LABS: ALBUMIN 2.1 G/DL (3.2-5.2); ALKALINE PHOSPHATASE 81 U/L (46-116); ALT/SGPT 40 U/L (7.0-40); AST/SGOT 31 U/L (<34); BILIRUBIN,TOTAL 0.3 MG/DL (0.3-1.2); BLOOD UREA NITROGEN 13 MG/DL (9-23); CALCIUM LEVEL 8.1 MG/DL (8.3-10.6); CARBON DIOXIDE LEVEL 23 MMOL/L (20-31); CHLORIDE LEVEL 104 MMOL/L (98-107); CREATININE FOR GFR 0.99 MG/DL (0.70-1.30); GLOMERULAR FILTRATION RATE > 60.0 (>49); GLUCOSE, FASTING 119 MG/DL (74-106); POTASSIUM SERUM 3.8 MMOL/L (3.5-5.1); SODIUM LEVEL 139 MMOL/L (136-145); TOTAL PROTEIN 6.5 G/DL (5.7-8.2)
[2023-02-23] MEDS: BISACODYL 10MG SUPP PR SCH (09:00)
[2023-02-23] MEDS: PANTOPRAZOLE 40MG VIAL IV SCH (09:42)
[2023-02-23] MEDS: ENOXAPARIN 60MG/0.6ML SYRINGE (J1650 PER 10MG) SC SCH ×2 (09:42→21:06)
[2023-02-23] MEDS: CARVedilol 12.5 MG TAB PEG SCH ×2 (09:43→21:07)
[2023-02-23] MEDS ORDERED: FLEET ENEMA PR PRN (10:40)
[2023-02-23] MEDS: FENTANYL REMOVAL DOCUMENTATION MISC XX SCH (12:22)
[2023-02-23] MEDS ORDERED: fentaNYL 25 MCG/HR PATCH TOP SCH (13:00)
[2023-02-23] MEDS: METOCLOPRAMIDE 5 MG TAB PEG SCH ×2 (13:42→21:06)
[2023-02-23] MEDS: SENOKOT S TAB PO SCH ×2 (13:42→21:06)
[2023-02-23] MEDS: ASPIRIN 81MG CHEW TABLET PEG SCH (13:42)
[2023-02-23] MEDS: cefTRIAXone SOD 1 GM in D5W MINI-BAG PLUS 50 ML IV SCH (16:15)
[2023-02-23] MEDS ORDERED: FLUoxetine 10 MG CAP PO SCH (21:00)
[2023-02-23] MEDS: ATORVASTATIN 10 MG TAB PEG SCH (21:06)
[2023-02-24] MEDS: **hydrALAZINE** 50 MG TAB PEG SCH ×3 (00:20→12:44)
[2023-02-24 03:09] VITALS: BP 137/79; TEMP 97; O2SAT 94
[2023-02-24] MEDS: METOCLOPRAMIDE 5 MG TAB PEG SCH ×3 (05:50→22:00)
[2023-02-24] MEDS: ACETAMINOPHEN TAB 650MG DOSE (2X325MG) PO PRN ×2 (06:22→20:17)
[2023-02-24 08:00] VITALS: BP 130/78; TEMP 96.9; O2SAT 98
[2023-02-24] MEDS: PANTOPRAZOLE 40MG VIAL IV SCH (10:35)
[2023-02-24] MEDS: ENOXAPARIN 60MG/0.6ML SYRINGE (J1650 PER 10MG) SC SCH ×2 (10:35→20:20)
[2023-02-24] MEDS: ASPIRIN 81MG CHEW TABLET PEG SCH (10:36)
[2023-02-24] MEDS: SENOKOT S TAB PO SCH ×2 (10:36→20:20)
[2023-02-24] MEDS: BISACODYL 10MG SUPP PR SCH (10:36)
[2023-02-24] MEDS: CARVedilol 12.5 MG TAB PEG SCH ×2 (10:38→20:18)
[2023-02-24] MEDS: MORPHINE 2 MG/ML 1ML VIAL IV PRN ×3 (11:05→22:19)
[2023-02-24 12:00] VITALS: BP 138/78; TEMP 98.2; O2SAT 100
[2023-02-24 14:00] VITALS: BP 126/72; TEMP 97.5; O2SAT 98
[2023-02-24] MEDS: cefTRIAXone SOD 1 GM in D5W MINI-BAG PLUS 50 ML IV SCH (15:16)
[2023-02-24 19:00] VITALS: BP 163/75; TEMP 98.2; O2SAT 97
[2023-02-24 20:00] VITALS: BP 163/75; TEMP 98.2; O2SAT 97
[2023-02-24] MEDS: ATORVASTATIN 10 MG TAB PEG SCH (20:18)
[2023-02-24] MEDS: **hydrALAZINE HCL** 25 MG TAB PEG SCH ×2 (20:19→23:42)
[2023-02-25] VITALS: BP 137/74; TEMP 98; O2SAT 100
[2023-02-25] MEDS: MORPHINE 2 MG/ML 1ML VIAL IV PRN ×3 (00:42→09:07)
[2023-02-25 04:00] VITALS: BP 140/76; TEMP 97.6; O2SAT 98
[2023-02-25] MEDS: **hydrALAZINE HCL** 25 MG TAB PEG SCH (05:35)
[2023-02-25] MEDS: METOCLOPRAMIDE 5 MG TAB PEG SCH ×3 (05:35→21:07)
[2023-02-25 07:43] VITALS: BP 151/82; TEMP 96.6; O2SAT 96
[2023-02-25 08:45] LABS: BASO % 0.2 % (0.0-1.0); EOS # 0.4 10^3/uL (0.0-0.5); EOS % 2.4 % (0.0-3.0); HEMATOCRIT 29.5 % (42.0-52.0); LYMPH # 1.3 10^3/uL (1.5-5.0); LYMPH % 8.6 % (24.0-44.0); MEAN CORPUSCULAR HGB CONC 30.5 g/dl (32.0-36.5); MEAN CORPUSCULAR VOLUME 91.6 fl (80.0-96.0); MONO # 0.8 10^3/uL (0.0-0.8); MONO % 5.4 % (2.0-8.0); NEUTROPHILS # 12.2 10^3/uL (1.5-8.5); NEUTROPHILS % 82.2 % (36.0-66.0); PLATELET COUNT, AUTOMATED 385 10^3/uL (150-450); RED BLOOD COUNT 3.22 10^6/uL (4.30-6.10); WHITE BLOOD COUNT 14.8 10^3/uL (4.0-10.0)
[2023-02-25] MEDS: SENOKOT S TAB PO SCH ×2 (09:00→21:07)
[2023-02-25] MEDS: BISACODYL 10MG SUPP PR SCH (09:00)
[2023-02-25] MEDS: OMEPRAZOLE/SODIUM BICARB 20-840MG 10ML ORAL SYRINGE GT SCH (09:09)
[2023-02-25] MEDS: CARVedilol 12.5 MG TAB PEG SCH ×2 (09:09→21:07)
[2023-02-25] MEDS: ASPIRIN 81MG CHEW TABLET PEG SCH (09:09)
[2023-02-25] MEDS: ACETAMINOPHEN TAB 650MG DOSE (2X325MG) PO PRN ×2 (09:09→17:47)
[2023-02-25] MEDS: ENOXAPARIN 60MG/0.6ML SYRINGE (J1650 PER 10MG) SC SCH ×2 (09:10→21:09)
[2023-02-25 09:15] LABS: BLOOD UREA NITROGEN 22 MG/DL (9-23); CALCIUM LEVEL 8.1 MG/DL (8.3-10.6); CARBON DIOXIDE LEVEL 27 MMOL/L (20-31); CHLORIDE LEVEL 105 MMOL/L (98-107); CREATININE FOR GFR 1.02 MG/DL (0.70-1.30); GLOMERULAR FILTRATION RATE > 60.0 (>49); GLUCOSE, FASTING 143 MG/DL (74-106); POTASSIUM SERUM 3.8 MMOL/L (3.5-5.1); SODIUM LEVEL 140 MMOL/L (136-145)
[2023-02-25 12:00] VITALS: BP 130/70; TEMP 96.7; O2SAT 96
[2023-02-25] MEDS: **hydrALAZINE** 50 MG TAB PEG SCH ×2 (12:00→17:48)
[2023-02-25] MEDS: MORPHINE SULFATE ORAL SOLN 10 MG/5 ML UD PEG PRN ×2 (13:41→17:48)
[2023-02-25 17:35] VITALS: BP 134/73
[2023-02-25] MEDS: GABAPENTIN 300 MG CAP PEG SCH ×2 (17:47→21:08)
[2023-02-25 20:17] VITALS: BP 132/84; TEMP 97.7; O2SAT 96
[2023-02-25] MEDS ORDERED: DULoxetine 30MG CAPSULE (CYMBALTA) PO SCH (21:00)
[2023-02-25] MEDS: ATORVASTATIN 10 MG TAB PEG SCH (21:07)
[2023-02-26 00:12] VITALS: BP 142/78
[2023-02-26] MEDS: MORPHINE SULFATE ORAL SOLN 10 MG/5 ML UD PEG PRN ×5 (00:47→22:59)
[2023-02-26 03:41] VITALS: BP 142/84; TEMP 98.3; O2SAT 95
[2023-02-26 05:40] VITALS: BP 140/78
[2023-02-26] MEDS: **hydrALAZINE** 50 MG TAB PEG SCH ×4 (06:00→18:27)
[2023-02-26] MEDS: METOCLOPRAMIDE 5 MG TAB PEG SCH ×3 (06:00→21:52)
[2023-02-26] MEDS ORDERED: FENTANYL REMOVAL DOCUMENTATION MISC XX SCH (09:00)
[2023-02-26] MEDS ORDERED: fentaNYL 25 MCG/HR PATCH TOP SCH (09:00)
[2023-02-26] MEDS: SENOKOT S TAB PO SCH ×2 (09:00→20:06)
[2023-02-26] MEDS: BISACODYL 10MG SUPP PR SCH (09:00)
[2023-02-26 09:37] VITALS: BP 160/84; TEMP 97.5; O2SAT 100
[2023-02-26] MEDS: ASPIRIN 81MG CHEW TABLET PEG SCH (10:36)
[2023-02-26] MEDS: OMEPRAZOLE/SODIUM BICARB 20-840MG 10ML ORAL SYRINGE GT SCH (10:36)
[2023-02-26] MEDS: TAMSULOSIN 0.4 MG CAP PO SCH (10:37)
[2023-02-26] MEDS: CARVedilol 12.5 MG TAB PEG SCH ×2 (10:37→21:50)
[2023-02-26] MEDS: GABAPENTIN 300 MG CAP PEG SCH ×3 (10:38→21:52)
[2023-02-26] MEDS: DULoxetine 30MG CAPSULE (CYMBALTA) PO SCH ×2 (10:45→21:52)
[2023-02-26] MEDS: APIXABAN 5 MG TAB (ELIQUIS) PO SCH ×2 (10:45→21:51)
[2023-02-26 15:58] VITALS: BP 146/82; TEMP 97.9; O2SAT 98
[2023-02-26 20:00] VITALS: BP 132/68; TEMP 98.2; O2SAT 97
[2023-02-26] MEDS: ATORVASTATIN 10 MG TAB PEG SCH (21:52)
[2023-02-27] VITALS (12 sets, daily range): BP systolic 92–148; BP diastolic 60–104; TEMP 97.5–97.7; O2SAT 92–99
[2023-02-27] MEDS: MORPHINE SULFATE ORAL SOLN 10 MG/5 ML UD PEG PRN ×3 (03:33→23:09)
[2023-02-27] MEDS: **hydrALAZINE** 50 MG TAB PEG SCH ×4 (06:00→18:00)
[2023-02-27] MEDS: METOCLOPRAMIDE 5 MG TAB PEG SCH ×3 (07:20→23:07)
[2023-02-27] MEDS: BISACODYL 10MG SUPP PR SCH (09:00)
[2023-02-27] MEDS: GABAPENTIN 300 MG CAP PEG SCH ×3 (09:39→20:48)
[2023-02-27] MEDS: APIXABAN 5 MG TAB (ELIQUIS) PO SCH ×2 (09:39→20:47)
[2023-02-27] MEDS: OMEPRAZOLE/SODIUM BICARB 20-840MG 10ML ORAL SYRINGE GT SCH (09:39)
[2023-02-27] MEDS: ASPIRIN 81MG CHEW TABLET PEG SCH (09:42)
[2023-02-27] MEDS: CARVedilol 12.5 MG TAB PEG SCH ×2 (09:42→20:48)
[2023-02-27] MEDS: DULoxetine 30MG CAPSULE (CYMBALTA) PO SCH ×2 (09:42→20:48)
[2023-02-27] MEDS: SENOKOT S TAB PO SCH ×2 (09:42→20:47)
[2023-02-27] MEDS: TAMSULOSIN 0.4 MG CAP PO SCH (09:42)
[2023-02-27] MEDS: ATORVASTATIN 10 MG TAB PEG SCH (20:47)
[2023-02-28] VITALS (7 sets, daily range): BP systolic 102–131; BP diastolic 64–70; TEMP 98.1–98.4; O2SAT 91–96
[2023-02-28] MEDS: MORPHINE SULFATE ORAL SOLN 10 MG/5 ML UD PEG PRN ×2 (00:32→03:31)
[2023-02-28] MEDS: METOCLOPRAMIDE 5 MG TAB PEG SCH (05:17)
[2023-02-28] MEDS: **hydrALAZINE** 50 MG TAB PEG SCH ×2 (05:29)
[2023-02-28 06:26] LABS: BASO % 0.3 % (0.0-1.0); EOS # 0.3 10^3/uL (0.0-0.5); EOS % 2.5 % (0.0-3.0); HEMATOCRIT 26.8 % (42.0-52.0); HEMOGLOBIN 8.2 g/dl (13.5-17.5); LYMPH # 1.3 10^3/uL (1.5-5.0); MEAN CORPUSCULAR HEMOGLOBIN 27.6 pg (27.0-33.0); MEAN CORPUSCULAR HGB CONC 30.6 g/dl (32.0-36.5); MEAN CORPUSCULAR VOLUME 90.2 fl (80.0-96.0); NEUTROPHILS # 10.1 10^3/uL (1.5-8.5); PLATELET COUNT, AUTOMATED 366 10^3/uL (150-450); RED BLOOD COUNT 2.97 10^6/uL (4.30-6.10)
[2023-02-28 06:51] LABS: BLOOD UREA NITROGEN 25 MG/DL (9-23); CALCIUM LEVEL 8.3 MG/DL (8.3-10.6); CARBON DIOXIDE LEVEL 25 MMOL/L (20-31); CHLORIDE LEVEL 101 MMOL/L (98-107); CREATININE FOR GFR 1.21 MG/DL (0.70-1.30); GLOMERULAR FILTRATION RATE > 60.0 (>49); GLUCOSE, FASTING 123 MG/DL (74-106); POTASSIUM SERUM 4.4 MMOL/L (3.5-5.1); SODIUM LEVEL 134 MMOL/L (136-145)
[2023-02-28] MEDS: MORPHINE SULFATE ORAL SOLN 10 MG/5 ML UD PO PRN ×4 (08:59→23:20)
[2023-02-28] MEDS: CARVedilol 12.5 MG TAB PO SCH ×2 (09:00→21:33)
[2023-02-28] MEDS: DULoxetine 30MG CAPSULE (CYMBALTA) PO SCH ×2 (10:44→21:31)
[2023-02-28] MEDS: TAMSULOSIN 0.4 MG CAP PO SCH (10:44)
[2023-02-28] MEDS: BISACODYL 10MG SUPP PR SCH (10:44)
[2023-02-28] MEDS: GABAPENTIN 300 MG CAP PO SCH ×3 (10:44→21:31)
[2023-02-28] MEDS: ASPIRIN 81MG CHEW TABLET PO SCH (10:44)
[2023-02-28] MEDS: ACETAMINOPHEN TAB 650MG DOSE (2X325MG) PO PRN ×2 (10:45→21:32)
[2023-02-28] MEDS: SENOKOT S TAB PO SCH ×2 (10:45→21:31)
[2023-02-28] MEDS: OMEPRAZOLE/SODIUM BICARB 20-840MG 10ML ORAL SYRINGE PO SCH (10:45)
[2023-02-28] MEDS: APIXABAN 5 MG TAB (ELIQUIS) PO SCH ×2 (10:45→21:31)
[2023-02-28] MEDS: **hydrALAZINE** 50 MG TAB PO SCH ×3 (12:00→23:26)
[2023-02-28] MEDS: METOCLOPRAMIDE 5 MG TAB PO SCH ×2 (14:08→21:31)
[2023-02-28] MEDS ORDERED: ATORVASTATIN 20 MG TAB PO SCH (21:00)
[2023-02-28] MEDS ORDERED: ATORVASTATIN 10 MG TAB PO SCH (21:00)
[2023-03-01] VITALS (10 sets, daily range): BP systolic 107–130; BP diastolic 60–68; TEMP 98.1; O2SAT 85–96
[2023-03-01] MEDS: MORPHINE SULFATE ORAL SOLN 10 MG/5 ML UD PO PRN ×4 (03:43→18:49)
[2023-03-01] MEDS: **hydrALAZINE** 50 MG TAB PO SCH ×3 (04:49→18:00)
[2023-03-01] MEDS: METOCLOPRAMIDE 5 MG TAB PO SCH ×2 (05:01→14:44)
[2023-03-01 06:15] LABS: BASO % 0.3 % (0.0-1.0); EOS # 0.4 10^3/uL (0.0-0.5); EOS % 3.3 % (0.0-3.0); HEMOGLOBIN 7.9 g/dl (13.5-17.5); LYMPH # 1.3 10^3/uL (1.5-5.0); LYMPH % 11.3 % (24.0-44.0); MEAN CORPUSCULAR HEMOGLOBIN 27.7 pg (27.0-33.0); MEAN CORPUSCULAR HGB CONC 30.4 g/dl (32.0-36.5); MEAN CORPUSCULAR VOLUME 91.2 fl (80.0-96.0); MONO # 0.8 10^3/uL (0.0-0.8); MONO % 7.2 % (2.0-8.0); NEUTROPHILS # 8.8 10^3/uL (1.5-8.5); NEUTROPHILS % 76.8 % (36.0-66.0); PLATELET COUNT, AUTOMATED 377 10^3/uL (150-450); RED BLOOD COUNT 2.85 10^6/uL (4.30-6.10); WHITE BLOOD COUNT 11.5 10^3/uL (4.0-10.0)
[2023-03-01 06:42] LABS: CALCIUM LEVEL 8.4 MG/DL (8.3-10.6); CREATININE FOR GFR 1.32 MG/DL (0.70-1.30); GLOMERULAR FILTRATION RATE 58.1 (>49); POTASSIUM SERUM 4.3 MMOL/L (3.5-5.1)
[2023-03-01] MEDS ORDERED: LR 500 ML IV ONE (07:55)
[2023-03-01] MEDS ORDERED: LR 500 ML IV SCH (08:30)
[2023-03-01] MEDS: OMEPRAZOLE/SODIUM BICARB 20-840MG 10ML ORAL SYRINGE PO SCH (08:36)
[2023-03-01] MEDS: ASPIRIN 81MG CHEW TABLET PO SCH (08:37)
[2023-03-01] MEDS: DULoxetine 30MG CAPSULE (CYMBALTA) PO SCH (08:37)
[2023-03-01] MEDS: BISACODYL 10MG SUPP PR SCH (08:37)
[2023-03-01] MEDS: GABAPENTIN 300 MG CAP PO SCH ×2 (08:38→14:44)
[2023-03-01] MEDS: TAMSULOSIN 0.4 MG CAP PO SCH (08:38)
[2023-03-01] MEDS: SENOKOT S TAB PO SCH (08:38)
[2023-03-01] MEDS: CARVedilol 12.5 MG TAB PO SCH (08:41)
[2023-03-01] MEDS ORDERED: fentaNYL 75 MCG/HR PATCH TOP SCH (09:00)
[2023-03-01] MEDS ORDERED: MIRALAX *UNIT DOSE* 17GM PACKET PO SCH (09:00)
[2023-03-01] MEDS ORDERED: [UNRECOGNIZED DRUG - REMARK] XX SCH ×2 (09:00→09:05)
[2023-03-01] MEDS ORDERED: FENTANYL REMOVAL DOCUMENTATION MISC XX SCH (09:00)
[2023-03-01] MEDS ORDERED: METAMUCIL (PSYLLIUM) PACKET PO SCH (09:00)
[2023-03-01] MEDS ORDERED: [UNRECOGNIZED DRUG - REMARK] XX SCH (09:05)
[2023-03-01] MEDS ORDERED: AMLO1TAB25 PO (16:26)
[2023-03-01] MEDS ORDERED: OMEP90SU PO (16:26)
[2023-03-01] MEDS ORDERED: META1POW PO (16:26)
[2023-03-01] MEDS ORDERED: GABA-282 PO (16:26)
[2023-03-01] MEDS ORDERED: FLOM0.4C39 PO (16:26)
[2023-03-01] MEDS ORDERED: HYDR50TA PO (16:26)
[2023-03-01] MEDS ORDERED: ATOR1TAB21 PO (16:26)
[2023-03-01] MEDS ORDERED: SENN-52 PO (16:26)
[2023-03-01] MEDS ORDERED: LISI10TA22 PO (16:26)
[2023-03-01] MEDS ORDERED: FENT75DI29 TOP (16:26)
[2023-03-01] MEDS ORDERED: FLEEENE12 PR (16:26)
[2023-03-01] MEDS ORDERED: MORP1SOL4 PO (16:26)
[2023-03-01] MEDS ORDERED: METO5TAB2 PO (16:26)
[2023-03-01] MEDS ORDERED: MIRA1POW3 PO (16:26)
[2023-03-01] MEDS ORDERED: MORPHINE SULFATE ORAL SOLN 10 MG/5 ML UD PO PRN (20:30)
[2023-03-02] MEDS ORDERED: [UNRECOGNIZED DRUG - REMARK] XX SCH (09:00)
== END 2023-03-01 21:21 | disposition short-term general hospital (02) | DRG 252 ==
LOC: EDBD 16:42 → M ED 16:42 → M ED INP 01-25 00:53 → M PCU 01-25 03:26 → M ICU 01-25 12:20 → M PCU 02-13 09:48 → M MSPAV 02-27 21:10
PROVIDERS: ADMIT Internal Medicine; ATTEND Student in an Organized Health Care Education/Training Program
PROC: 0BH17EZ Insertion of Endotracheal Airway into Trachea, Via Natural or Artificial Opening (ICD-10-PCS; 2023-01-25)
PROC: 02HV33Z Insertion of Infusion Device into Superior Vena Cava, Percutaneous Approach (ICD-10-PCS; 2023-01-25)
PROC: 5A1955Z Respiratory Ventilation, Greater than 96 Consecutive Hours (ICD-10-PCS; 2023-01-25)
PROC: B246ZZZ Ultrasonography of Right and Left Heart (ICD-10-PCS; 2023-01-27)
PROC: 30233N1 Transfusion of Nonautologous Red Blood Cells into Peripheral Vein, Percutaneous Approach (ICD-10-PCS; 2023-01-27)
PROC: BQ0 Imaging, Non-Axial Lower Bones, Plain Radiography (ICD-10-PCS; 2023-01-31)
PROC: 04CL0ZZ Extirpation of Matter from Left Femoral Artery, Open Approach (ICD-10-PCS; principal; 2023-01-31 12:53)
PROC: B246ZZZ Ultrasonography of Right and Left Heart (ICD-10-PCS; 2023-02-02)
PROC: 02HV33Z Insertion of Infusion Device into Superior Vena Cava, Percutaneous Approach (ICD-10-PCS; 2023-02-04)
PROC: 0DH68UZ Insertion of Feeding Device into Stomach, Via Natural or Artificial Opening Endoscopic (ICD-10-PCS; 2023-02-09)
DX: T82.868A Thrombosis due to vascular prosthetic devices, implants and grafts, initial encounter (principal); J96.00 Acute respiratory failure, unspecified whether with hypoxia or hypercapnia; I63.40 Cerebral infarction due to embolism of unspecified cerebral artery; F11.20 Opioid dependence, uncomplicated; K62.5 Hemorrhage of anus and rectum; J98.11 Atelectasis; K56.7 Ileus, unspecified; N17.9 Acute kidney failure, unspecified; R47.01 Aphasia; B37.0 Candidal stomatitis; E11.52 Type 2 diabetes mellitus with diabetic peripheral angiopathy with gangrene; Q21.12 Patent foramen ovale; T83.511A Infection and inflammatory reaction due to indwelling urethral catheter, initial encounter; G83.23 Monoplegia of upper limb affecting right nondominant side; Y83.1 Surgical operation with implant of artificial internal device as the cause of abnormal reaction of the patient, or of later complication, without mention of misadventure at the time of the procedure; T82.856A Stenosis of peripheral vascular stent, initial encounter; Z66 Do not resuscitate; R00.1 Bradycardia, unspecified; F17.210 Nicotine dependence, cigarettes, uncomplicated; I12.9 Hypertensive chronic kidney disease with stage 1 through stage 4 chronic kidney disease, or unspecified chronic kidney disease; N18.30 Chronic kidney disease, stage 3 unspecified; G62.9 Polyneuropathy, unspecified; I25.10 Atherosclerotic heart disease of native coronary artery without angina pectoris; J44.9 Chronic obstructive pulmonary disease, unspecified; J45.909 Unspecified asthma, uncomplicated; I69.311 Memory deficit following cerebral infarction; Z95.3 Presence of xenogenic heart valve; I70.1 Atherosclerosis of renal artery; I27.29 Other secondary pulmonary hypertension; R13.10 Dysphagia, unspecified; D50.0 Iron deficiency anemia secondary to blood loss (chronic); N40.1 Benign prostatic hyperplasia with lower urinary tract symptoms; R33.9 Retention of urine, unspecified; K59.00 Constipation, unspecified; E11.22 Type 2 diabetes mellitus with diabetic chronic kidney disease; Y84.6 Urinary catheterization as the cause of abnormal reaction of the patient, or of later complication, without mention of misadventure at the time of the procedure; I95.9 Hypotension, unspecified; G89.29 Other chronic pain; M54.9 Dorsalgia, unspecified; E78.5 Hyperlipidemia, unspecified; B96.89 Other specified bacterial agents as the cause of diseases classified elsewhere; E11.42 Type 2 diabetes mellitus with diabetic polyneuropathy; Z79.01 Long term (current) use of anticoagulants; Z89.611 Acquired absence of right leg above knee; Z95.1 Presence of aortocoronary bypass graft; Z85.038 Personal history of other malignant neoplasm of large intestine; Z95.820 Peripheral vascular angioplasty status with implants and grafts; Z79.899 Other long term (current) drug therapy; Z79.82 Long term (current) use of aspirin; Z90.49 Acquired absence of other specified parts of digestive tract

== ENCOUNTER → 2024-10-29 | Outpatient (REF) | payer MEDICARE, MEDICAID ==
[~2024-10-29] MED LIST changes: +ASPI-615 PO; +FENT75DI29 TOP; +FLEEENE12 PR; +FLUO-290 PO; -FLUO10CA18 PO; +GABA-1172 PO; +GABA-1635 PO; -GABA800T4 PO; -HYDR-3911 PO; -HYDR50TA PO; +HYDR50TA46 PO; +HYDR50TA47 PO; +LISI10TA22 PO; +META1POW PO; +METO5TAB2 PO; -MIRA1POW3 PO; +MIRA3350 PO; +MIRA33506 PO; +MORP-138 PO; -MORP15TASA PO; +MORP1SOL4 PO; +OMEP90SU PO; +SENN-165 PO; +SENN-52 PO; +TAMS-18 PO
[2024-10-29 16:46] LABS: BASO # 0.1 10^3/uL (0.0-0.2); BASO % 0.9 % (0.0-1.0); EOS # 0.2 10^3/uL (0.0-0.5); HEMATOCRIT 39.4 % (42.0-52.0); HEMOGLOBIN 12.4 g/dl (13.5-17.5); LYMPH # 1.9 10^3/uL (1.5-5.0); LYMPH % 23.8 % (24.0-44.0); MEAN CORPUSCULAR HEMOGLOBIN 30.6 pg (27.0-33.0); MEAN CORPUSCULAR HGB CONC 31.5 g/dl (32.0-36.5); MEAN CORPUSCULAR VOLUME 97.3 fl (80.0-96.0); MONO # 0.7 10^3/uL (0.0-0.8); MONO % 9.3 % (2.0-8.0); NEUTROPHILS # 4.8 10^3/uL (1.5-8.5); NEUTROPHILS % 62.1 % (36.0-66.0); PLATELET COUNT, AUTOMATED 224 10^3/uL (150-450); RED BLOOD COUNT 4.05 10^6/uL (4.30-6.10); WHITE BLOOD COUNT 7.8 10^3/uL (4.0-10.0)
[2024-10-29 16:51] LABS: ALBUMIN 3.6 G/DL (3.2-5.2); BILIRUBIN,TOTAL 0.2 MG/DL (0.3-1.2); CALCIUM LEVEL 9.1 MG/DL (8.3-10.6); CREATININE FOR GFR 1.34 MG/DL (0.70-1.30); GLOMERULAR FILTRATION RATE 58.8 (>49); INR 1.07; PARTIAL THROMBOPLASTIN TIME 35.5 SECONDS (24.8-34.2); POTASSIUM SERUM 4.5 MMOL/L (3.5-5.1); PROTHROMBIN TIME 14.2 SECONDS (12.5-14.5); TOTAL PROTEIN 7.1 G/DL (5.7-8.2)
== END ==
LOC: M SFHCADAM 13:58
PROVIDERS: ATTEND Family Medicine
DX: Z01.818 Encounter for other preprocedural examination (principal); Z79.01 Long term (current) use of anticoagulants

== ENCOUNTER → 2025-01-04 | Outpatient (CLI) | payer MEDICARE, MEDICAID | LOC: M CARPUL 16:40 | PROVIDERS: ATTEND Physician Assistant | DX: Q23.0 Congenital stenosis of aortic valve (principal); Z95.3 Presence of xenogenic heart valve; I71.20 Thoracic aortic aneurysm, without rupture, unspecified ==

== ENCOUNTER → 2025-01-08 | Outpatient (CLI) | payer MEDICARE, MEDICAID ==
[~2025-01-08] MED LIST changes: +BARIUM SULFATE 700 MG TABLET As Ordered ONE; +E-Z-PAQUE 96% w/w SUSP 176 GM BTL As Ordered ONE; +VARIBAR NECTAR 40% w/v 240ML SUSP BTL As Ordered ONE; +VARIBAR PUDDING 40% w/v 230ML TUBE As Ordered ONE
== END ==
LOC: M RAD 11:06
PROVIDERS: ATTEND Otolaryngology
DX: R13.19 Other dysphagia (principal)